=== PATIENT | female | born 1950 | race Two or more races ===

== ENCOUNTER 2020-05-21 14:00 | Outpatient (REF) | payer MEDICARE, SELFPAY ==
[2020-05-21 16:52] LABS: Alanine Aminotransferase 35 U/L (0-31); Anion Gap 12 (12-20); Aspartate Amino Transferase 43 U/L (5-31); Blood Urea Nitrogen 29 mg/dL (9-16); Carbon Dioxide 29 mmol/L (22-29); Chloride 100 mmol/L (96-108); Estimated Glomerular Filt Rate 58; Glucose Random 89 mg/dL (60-115); Potassium 3.8 mmol/l (3.3-5.1); Sodium 137 mmol/L (135-145)
[2020-05-21 16:54] LABS: B Type Natriuretic Peptide 55 pg/mL (<100)
== END 2020-05-21 14:01 | disposition home or self-care (01) ==
LOC: HO.LAB 14:00
PROVIDERS: PCP Internal Medicine; Referring Provider Internal Medicine; Visit Provider Nurse Practitioner Family
DX: G90.3 Multi-system degeneration of the autonomic nervous system (principal); I11.0 Hypertensive heart disease with heart failure; I50.30 Unspecified diastolic (congestive) heart failure; J18.9 Pneumonia, unspecified organism; G47.33 Obstructive sleep apnea (adult) (pediatric); Z99.89 Dependence on other enabling machines and devices
CPT/HCPCS: 80048; 83880; 84450; 84460; 99214

== ENCOUNTER → 2020-05-26 14:50 | Outpatient (BNVA) | payer MEDICARE, SELFPAY | PROVIDERS: PCP Internal Medicine; Visit Provider Hospitalist | DX: J18.9 Pneumonia, unspecified organism (principal); K90.0 Celiac disease; G47.33 Obstructive sleep apnea (adult) (pediatric); I27.20 Pulmonary hypertension, unspecified; Z79.899 Other long term (current) drug therapy; Z99.89 Dependence on other enabling machines and devices | CPT/HCPCS: 99205; 99212 ==

== ENCOUNTER 2020-06-02 13:22 | Outpatient (REF) | payer MEDICARE, SELFPAY ==
--- NOTE | 2020-06-02 | PFT_ITS ---
FLOWS: FEV1 73% of predicted at 1.69 L. FVC 63% of predicted at 1.92 L. FEV1 to FVC ratio of 0.88. No bronchodilator response. The patient has had a maximum of 18% decrease in her FEV1 with administration of methacholine. IMPRESSION: Negative methacholine challenge test. MD RONY Shah/IMELDA / [id number]
== END 2020-06-02 13:23 | disposition home or self-care (01) ==
LOC: HO.RESP 13:22
PROVIDERS: PCP Internal Medicine; Visit Provider Hospitalist
DX: R06.02 Shortness of breath (principal); R05 Cough; Z87.891 Personal history of nicotine dependence
CPT/HCPCS: 94060; 94727; 94729

== ENCOUNTER 2020-06-15 18:23 | Inpatient (IN) | payer MEDICARE, SELFPAY ==
[2020-06-15 18:30] VITALS: BP 133/54; PULSE 89; RESP 30; TEMP 36.6; O2SAT 88; BMI 30.9
--- NOTE | 2020-06-15 18:49 | PC.NURSE ---
Report taken from Collin. Pt satting @ 93% on RA, O2 applied via NC @ 2 lpm, sat increased to 98%.
--- NOTE | 2020-06-15 19:09 | ECG_ITS ---
Test Reason : SOB Blood Pressure : / mmHG Vent. Rate : 081 BPM Atrial Rate : 081 BPM P-R Int : 178 ms QRS Dur : 076 ms QT Int : 366 ms P-R-T Axes : 056 017 065 degrees QTc Int : 425 ms Normal sinus rhythm Normal ECG When compared with ECG of 23-FEB-2020 16:21, No significant change was found Referred By: Jessica Lucio Electronically Signed By:WANDA JOHSNON MD
--- NOTE | 2020-06-15 19:09 | ED.SOB ---
HPI - SOB/Dyspnea General Chief Complaint: Dyspnea Stated Complaint: shortness of breath Time Seen by Provider: 06/15/20 19:46 Source: patient Mode of arrival: ambulatory Limitations: no limitations History of Present Illness HPI Narrative: 69-year-old female with past medical history of uterine cancer, pulmonary hypertension, diastolic CHF, orthostatic hypotension dysautonomia syndrome, hypothyroidism, hypertension, hyperlipidemia, and celiac disease presents with worsening shortness of breath and hypoxia. She states that she has been short of breath since November, has been worked up by Dr. Ford and was diagnosed with pneumonitis a few months ago. She states that over the past week her respiration rates have increased, over the past 3 days she has noticed that she is having a difficult time walking and speaking in complete sentences, and today she noticed that on minimal exertion her oxygenation rate dropped down to 87%. 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 she does not report any fevers or chills, but states to have significant anxiety over her respiratory distress. She denies abdominal pain, abdominal distention, dysuria, hematuria, edema, dizziness, weakness, and abnormal bruising or bleeding. MD elicited complaint: shortness of breath, cough and anxiety Pertinent past history: congestive heart failure and pneumonia Onset (ago): day(s) ( Three days) Context: anxiety Timing: constant Severity: severe Exacerbating factors: exertion, movement, coughing and talking Relieving factors: nothing Known history of: congestive heart failure and other ( pneumonitis) Associated symptoms: cough, wheezing, orthopnea and palpitations Treatment prior to arrival: bronchodilator and diuretics Related Data Home oxygen amount: none Home Medications Medication Instructions Recorded Confirmed amlodipine 1 tab PO QAM 06/15/20 06/15/20 atorvastatin 1 tab PO DAILY 06/15/20 06/15/20 clopidogrel 1 tab PO DAILY 06/15/20 06/15/20 estradiol 1 tab PO DAILY 06/15/20 06/15/20 hiyelcbrhvv-wgmcpyerw-bbmiibem 1 puff PO DAILY 06/15/20 06/15/20 [Trelegy Ellipta] furosemide 40 mg PO BID PRN 06/15/20 06/15/20 gabapentin 1 tab PO QID 06/15/20 06/15/20 gabapentin 1 tab PO QID 06/15/20 06/15/20 hydralazine PO 06/15/20 labetalol 1 tab PO BID 06/15/20 06/15/20 levothyroxine 1 tab PO DAILY 06/15/20 06/15/20 lorazepam 1 tab PO QID PRN 06/15/20 06/15/20 sertraline 1.5 tab PO DAILY 06/15/20 06/15/20 spironolactone 0.5 tab PO DAILY 06/15/20 06/15/20 sumatriptan succinate 1 tab PO Q2H PRN 06/15/20 06/15/20 zolpidem 1 tab PO BEDTIME 06/15/20 06/15/20 Allergies Allergy/AdvReac Type Severity Reaction Status Date / Time gluten [GLUTEN] Allergy Unknown ABD PAIN Verified 05/26/20 20:54 Sulfa (Sulfonamide Allergy Unknown UNK, rash Verified 05/26/20 20:54 Antibiotics) [SULFA(SULFONAMIDE ANTIBIOTICS)] mirtazapine AdvReac Unknown peripheral Verified 05/26/20 20:54 edema Review of Systems Review of Systems: Constitutional: No Fever, No Chills ENT/Mouth: No Hoarseness, No sore throat, No Rhinorrhea Eyes: No Redness, No Discharge, No Vision Changes Cardiovascular: No Chest Pain, positive SOB, positive Dyspnea on Exertion, No Edema Respiratory: positive Cough, No Sputum, positive Wheezing, Gastrointestinal: No Nausea, No Vomiting, No Diarrhea, No abdominal Pain Genitourinary: No Dysuria, No Hematuria Musculoskeletal: No joint pain, No Myalgias Skin: No rash Neuro: No Weakness, No Numbness, No Headache Psych: No anxiety, depression Heme/Lymph: No Bruising, No Bleeding Endocrine: No Polyuria, No Polydipsia Yes all other systems are reviewed and are negative [facility] Past Medical History Attestation statement: The following information was validated with the patient. Medical History Celiac disease Diastolic CHF HTN (hypertension) Hyperlipemia Hypothyroid Mammogram normal Orthostatic hypotension dysautonomic syndrome DANIS on CPAP Surgical History Endometrial adenocarcinoma History of colonoscopy History of total abdominal hysterectomy and bilateral salpingo-oophorectomy Family History Family History Father Savita cell cancer HTN (hypertension) CVD (cardiovascular disease) Mother Crohn disease Cancer Maternal Grandfather No problems noted. Maternal Grandmother No problems noted. Paternal Grandfather CVD (cardiovascular disease) Paternal Grandmother COPD (chronic obstructive pulmonary disease) Brother No problems noted. Sister No problems noted. Daughter No problems noted. Social History Social History Smoking Status: Never smoker Advance Directives: No Advance Directives Information Provided: Yes Physical Exam Vital Signs: Vital Signs: Last Vital Signs Temp 99.3 F 06/15/20 20:33 Pulse 82 06/15/20 21:32 Resp 16 06/15/20 21:32 BP 119/56 L 06/15/20 21:32 Pulse Ox 97 06/15/20 21:32 Body Mass Index 30.9 Appearance: Alert. Oriented X3. moderate distress. Head: Normal external exam. Normocephalic. Atraumatic. Eyes: PERRLA. EOMI. Conjunctiva and sclera normal. Eyelids normal. ENT: TM's Normal. Pharynx normal. Uvula midline. Moist mucous membranes. No trismus noted. No drooling noted. No muffled voice noted. Neck: Normal inspection. Neck supple. No adenopathy. CVS: Normal heart rate and rhythm. Heart sound normal. No murmurs noted. Pulses equal to all extremities. Respiratory: moderate respiratory distress. tachypneic at 30 breaths per minute. Painless inspiration. Breath sounds wheezes noted. Chest nontender. No accessory muscle usage noted or decreased air movement noted. Abdomen: Soft and nontender. Bowel sounds normal in all 4 quadrants. No distention noted. No organomegaly noted. No visible injury noted. Back: No CVA tenderness. Full range of motion noted. Skin: Skin warm and dry. Normal skin color. Normal skin turgor. No rashes/lesions/lacerations noted. Extremities: No lower extremity edema. Extremities exhibit normal range of motion. Extremities nontender. Neuro: cranial nerves 2-12 intact, no focal neural deficits, strength 5/5 to all extremities, No motor deficit. No sensory deficit. Course Course Course Narrative: 69-year-old female with shortness breath followed by Dr. Ford for pneumonitis, and chronic shortness of breath since November. She was diagnosed with diastolic CHF several months ago. patient is very apprehensive about taking any medications, I reached out to Dr. Ford, the plan is for 125 mg of Solu-Medrol, no fluid resuscitation as she does have CHF, CTA of the chest to rule out PE, and labs. A review of her medical record shows a normal V/Q scan on 03/26/2020 and on 02/14/2020 had a CTA that indicated no pulmonary embolism with hazy ground-glass opacities in the perihilar lung bilaterally suggesting cardiogenic etiology of CHF. Patient dropped down to the mid 80s on minimal exertion, patient initiated on oxygen 2 L nasal cannula which bumped her up to 94% at rest. will rule ACS with EKG and troponins. She has a white count of 13.1, she does take inhaled steroids, ESR is 29 BUN 21, glucose 139, and BNP is 122. at this time we will not diurese as she has had 80 mg of Lasix today. CTA shows pneumonitis or viral pneumonia negative for PE. These results were discussed with Dr. Ford, hospitalist contacted for admission. Patient will be admitted for hypoxia, pneumonitis and CHF. Consultations Consultation #1: Dr. Jose L Ford Time: 19:40 Consultation #2: Dr. Saad Angel Time: 21:56 MDM - SOB/Dyspnea Differential Diagnosis Differential diagnosis: Likely congestive heart failure, pneumonia, pulmonary embolism, pleural effusion and anemia Medical Records Attestation: I reviewed the patient's medical records. Lab Data Attestation: I reviewed the patient's lab results. Result diagrams: 06/15/20 19:57 06/15/20 19:57 Labs: Lab Results 06/15/20 06/15/20 06/15/20 Range/Units 19:57 19:57 19:57 WBC 13.1 H (4.8-10.8) X10*3/uL RBC 4.55 (4.20-5.50) X10*6/uL Hgb 13.4 (12.0-16.0) g/dl Hct 40.5 (37-47) % MCV 89.0 (80-98) fL MCH 29.5 (27.0-33.0) pg MCHC 33.1 (31.0-35.0) g/dl RDW 14.3 (11.0-16.0) % Plt Count 301 (160-400) X10*3/uL MPV 10.5 (9.4-12.3) fL Immature Gran % (Auto) 0.3 (0.0-0.4) % Neut % (Auto) 79.4 H (45-73) % Lymph % (Auto) 9.5 L (20-40) % [place] % (Auto) 8.3 (2-11) % Eos % (Auto) 2.0 (0-4) % Baso % (Auto) 0.5 (0-2) % Lymph # (Auto) 1.2 (1.2-4.9) X10*3/uL [place] # (Auto) 1.1 (0.1-1.2) X10*3/uL Eos # (Auto) 0.3 (0.0-0.4) X10*3/uL Baso # (Auto) 0.1 (0.0-0.2) X10*3/uL Abs Immat Gran (auto) 0.04 H (0.00-0.03) X10*3/uL Absolute Neuts (auto) 10.4 H (2.0-8.3) X10*3/uL Absolute Nucleated RBC 0.000 (0.0-0.012) X10*3/uL Nucleated RBC % (auto) 0.0 (0.0-0.2) /100WBC ESR (0-20) MM/HR D-Dimer NG/ML ABG pH (7.35-7.45) ABG pCO2 (32-45) mmhg ABG pO2 (83-108) mmhg ABG HCO3 (22-26) mmol/l ABG O2 Saturation % ABG Base Excess Oxygen Given Sodium 138 (135-145) mmol/L Potassium 3.4 (3.3-5.1) mmol/l Chloride 100 (96-108) mmol/L Carbon Dioxide 26 (22-29) mmol/L Anion Gap 15 (12-20) BUN 21 H (9-16) mg/dL Creatinine 0.97 (0.5-1.4) mg/dL Estim Creat Clear Calc 57.4 Estimated GFR 57 Random Glucose 139 H D (60-115) mg/dL Lactic Acid (0.5-2.0) mmol/L Calcium 8.6 (8.4-10.2) mg/dL Troponin I High Sens 5.7 (<3.5-17.0) ng/L B-Natriuretic Peptide 122 H (<100) pg/mL Urine Color Urine Appearance Urine pH (5.0-8.0) Ur Specific [place] (1.005-1.025) Urine Protein (NEG-TRACE) MG/DL Urine Glucose (UA) (NEG) MG/DL Urine Ketones (NEG) MG/DL Urine Blood (NEG) Urine Nitrite (NEG) Ur Leukocyte Esterase (NEG) Coronavirus (PCR) (Negative) Influenza Type A (PCR) (Negative) Influenza Type B (PCR) (Negative) RSV RNA Qual (PCR) (Negative) 06/15/20 06/15/20 06/15/20 Range/Units 19:57 19:57 19:57 WBC (4.8-10.8) X10*3/uL RBC (4.20-5.50) X10*6/uL Hgb (12.0-16.0) g/dl Hct (37-47) % MCV (80-98) fL MCH (27.0-33.0) pg MCHC (31.0-35.0) g/dl RDW (11.0-16.0) % Plt Count (160-400) X10*3/uL MPV (9.4-12.3) fL Immature Gran % (Auto) (0.0-0.4) % Neut % (Auto) (45-73) % Lymph % (Auto) (20-40) % [place] % (Auto) (2-11) % Eos % (Auto) (0-4) % Baso % (Auto) (0-2) % Lymph # (Auto) (1.2-4.9) X10*3/uL [place] # (Auto) (0.1-1.2) X10*3/uL Eos # (Auto) (0.0-0.4) X10*3/uL Baso # (Auto) (0.0-0.2) X10*3/uL Abs Immat Gran (auto) (0.00-0.03) X10*3/uL Absolute Neuts (auto) (2.0-8.3) X10*3/uL Absolute Nucleated RBC (0.0-0.012) X10*3/uL Nucleated RBC % (auto) (0.0-0.2) /100WBC ESR (0-20) MM/HR D-Dimer NG/ML ABG pH (7.35-7.45) ABG pCO2 (32-45) mmhg ABG pO2 (83-108) mmhg ABG HCO3 (22-26) mmol/l ABG O2 Saturation % ABG Base Excess Oxygen Given Sodium (135-145) mmol/L Potassium (3.3-5.1) mmol/l Chloride (96-108) mmol/L Carbon Dioxide (22-29) mmol/L Anion Gap (12-20) BUN (9-16) mg/dL Creatinine (0.5-1.4) mg/dL Estim Creat Clear Calc Estimated GFR Random Glucose (60-115) mg/dL Lactic Acid 1.5 (0.5-2.0) mmol/L Calcium (8.4-10.2) mg/dL Troponin I High Sens (<3.5-17.0) ng/L B-Natriuretic Peptide (<100) pg/mL Urine Color YELLOW Urine Appearance CLEAR Urine pH 6.5 (5.0-8.0) Ur Specific [place] 1.010 (1.005-1.025) Urine Protein NEG (NEG-TRACE) MG/DL Urine Glucose (UA) NEG (NEG) MG/DL Urine Ketones NEG (NEG) MG/DL Urine Blood NEG (NEG) Urine Nitrite NEG (NEG) Ur Leukocyte Esterase NEG (NEG) Coronavirus (PCR) NEGATIVE (Negative) Influenza Type A (PCR) NEGATIVE (Negative) Influenza Type B (PCR) NEGATIVE (Negative) RSV RNA Qual (PCR) NEGATIVE (Negative) 06/15/20 06/15/20 06/15/20 Range/Units 19:57 19:57 22:30 WBC (4.8-10.8) X10*3/uL RBC (4.20-5.50) X10*6/uL Hgb (12.0-16.0) g/dl Hct (37-47) % MCV (80-98) fL MCH (27.0-33.0) pg MCHC (31.0-35.0) g/dl RDW (11.0-16.0) % Plt Count (160-400) X10*3/uL MPV (9.4-12.3) fL Immature Gran % (Auto) (0.0-0.4) % Neut % (Auto) (45-73) % Lymph % (Auto) (20-40) % [place] % (Auto) (2-11) % Eos % (Auto) (0-4) % Baso % (Auto) (0-2) % Lymph # (Auto) (1.2-4.9) X10*3/uL [place] # (Auto) (0.1-1.2) X10*3/uL Eos # (Auto) (0.0-0.4) X10*3/uL Baso # (Auto) (0.0-0.2) X10*3/uL Abs Immat Gran (auto) (0.00-0.03) X10*3/uL Absolute Neuts (auto) (2.0-8.3) X10*3/uL Absolute Nucleated RBC (0.0-0.012) X10*3/uL Nucleated RBC % (auto) (0.0-0.2) /100WBC ESR 29 H (0-20) MM/HR D-Dimer 287 NG/ML ABG pH 7.47 H (7.35-7.45) ABG pCO2 38 (32-45) mmhg ABG pO2 76 L (83-108) mmhg ABG HCO3 27 H (22-26) mmol/l ABG O2 Saturation 96.0 % ABG Base Excess 3.9 Oxygen Given 2 L Sodium (135-145) mmol/L Potassium (3.3-5.1) mmol/l Chloride (96-108) mmol/L Carbon Dioxide (22-29) mmol/L Anion Gap (12-20) BUN (9-16) mg/dL Creatinine (0.5-1.4) mg/dL Estim Creat Clear Calc Estimated GFR Random Glucose (60-115) mg/dL Lactic Acid (0.5-2.0) mmol/L Calcium (8.4-10.2) mg/dL Troponin I High Sens (<3.5-17.0) ng/L B-Natriuretic Peptide (<100) pg/mL Urine Color Urine Appearance Urine pH (5.0-8.0) Ur Specific [place] (1.005-1.025) Urine Protein (NEG-TRACE) MG/DL Urine Glucose (UA) (NEG) MG/DL Urine Ketones (NEG) MG/DL Urine Blood (NEG) Urine Nitrite (NEG) Ur Leukocyte Esterase (NEG) Coronavirus (PCR) (Negative) Influenza Type A (PCR) (Negative) Influenza Type B (PCR) (Negative) RSV RNA Qual (PCR) (Negative) ABG Data ABG results: pH 7.47 high pCO2 38 PO2 76 low HC03 27 high O2 saturation 96% ABG base excess 3.9 oxygen given 2 L Attestation: I personally reviewed and interpreted this ABG as follows: Interpretation: respiratory acidosis Imaging Data CTA chest: Attestation: I personally reviewed and interpreted this imaging study as follows: Radiologist's impression: EXAMINATION: CT ANGIOGRAM OF THE CHEST WITH AND WITHOUT CONTRAST (CT PULMONARY ANGIOGRAM FOR PE) CLINICAL INFORMATION: Reason for Exam sob COMPARISON: CTA chest dated 02/14/2020 TECHNIQUE: Prior to contrast administration, noncontrast localization images were obtained. Subsequently, multidetector volumetric imaging was performed from the thoracic inlet to below the diaphragms following the administration of 80 mLOmnipaque 350 intravenous contrast. No contrast reaction reported Sagittal, coronal, and MIP oblique sagittal reformatted images were obtained on the CT workstation, uploaded to PACS, and reviewed. This CT examination was performed using dose optimization techniques as appropriate, variously including the following: *Automated exposure control *Adjustment of mA and/or kV according to patient size (this includes techniques or standardized protocols for targeted exams where dose is matched to indication/reason for exam; i.e. extremities or head) *Use of iterative reconstruction technique Total exam dose-length product 362 mGy-cm FINDINGS: QUALITY OF STUDY/CONTRAST BOLUS: Satisfactory. PULMONARY ARTERIES: No central or segmental pulmonary emboli. THORACIC AORTA: No aneurysm or dissection. LUNG: There are patchy groundglass opacities within the upper lobes bilaterally, demonstrating a slight peripheral predominance.. PLEURA: No pleural effusion or pneumothorax. MEDIASTINUM: Normal heart size. No pericardial effusion. No hilar or mediastinal lymphadenopathy. No evidence of septal bowing or right heart strain. No reflux of contrast into the hepatic veins to suggest elevated right heart pressures. CHEST WALL/AXILLA: No axillary or internal mammary lymphadenopathy. OSSEOUS STRUCTURES: No acute or suspicious osseous abnormality. UPPER ABDOMEN: Unremarkable. CT/CT angio chest PE protocol IMPRESSION: * No evidence of pulmonary embolism. * No aortic dissection or aneurysm. * There are patchy groundglass opacification, predominantly upper lobe and peripheral and distribution. Appearance is nonspecific but could be compatible with an atypical pneumonitis such as a viral pneumonia. VTE: negative ECG Data Attestation: I personally reviewed and interpreted this ECG as follows: ECG interpretation date: 06/15/20 Prior ECG tracings: available for review Interpretation: Vent. Rate : 081 BPM Atrial Rate : 081 BPM P-R Int : 178 ms QRS Dur : 076 ms QT Int : 366 ms P-R-T Axes : 056 017 065 degrees QTc Int : 425 ms Normal sinus rhythm Cannot rule out Anterior infarct , age undetermined Abnormal ECG When compared with ECG of 23-FEB-2020 16:21, No significant change was found Critical Care Time Critical Care Time Critical Care Time: Yes Total Critical Care Time: 65 Attestation: I have personally provided critical care time exclusive of time spent on separately billable procedures. Time includes review of laboratory data, radiology results, discussion with consultants, and monitoring for potential decompensation. Interventions were performed as documented. Discharge Plan Discharge Clinical Impression: Pneumonitis, Pulmonary hypertension Diastolic CHF Qualifiers: Heart failure chronicity: acute on chronic Qualified Code(s): I50.33 - Acute on chronic diastolic (congestive) heart failure Patient Disposition: Admitted As Inpatient
--- NOTE | 2020-06-15 19:46 | CT_ITS ---
EXAMINATION: CT ANGIOGRAM OF THE CHEST WITH AND WITHOUT CONTRAST (CT PULMONARY ANGIOGRAM FOR PE) CLINICAL INFORMATION: Reason for Exam sob COMPARISON: CTA chest dated 02/14/2020 TECHNIQUE: Prior to contrast administration, noncontrast localization images were obtained. Subsequently, multidetector volumetric imaging was performed from the thoracic inlet to below the diaphragms following the administration of 80 mLOmnipaque 350 intravenous contrast. No contrast reaction reported Sagittal, coronal, and MIP oblique sagittal reformatted images were obtained on the CT workstation, uploaded to PACS, and reviewed. This CT examination was performed using dose optimization techniques as appropriate, variously including the following: *Automated exposure control *Adjustment of mA and/or kV according to patient size (this includes techniques or standardized protocols for targeted exams where dose is matched to indication/reason for exam; i.e. extremities or head) *Use of iterative reconstruction technique Total exam dose-length product 362 mGy-cm FINDINGS: QUALITY OF STUDY/CONTRAST BOLUS: Satisfactory. PULMONARY ARTERIES: No central or segmental pulmonary emboli. THORACIC AORTA: No aneurysm or dissection. LUNG: There are patchy groundglass opacities within the upper lobes bilaterally, demonstrating a slight peripheral predominance.. PLEURA: No pleural effusion or pneumothorax. MEDIASTINUM: Normal heart size. No pericardial effusion. No hilar or mediastinal lymphadenopathy. No evidence of septal bowing or right heart strain. No reflux of contrast into the hepatic veins to suggest elevated right heart pressures. CHEST WALL/AXILLA: No axillary or internal mammary lymphadenopathy. OSSEOUS STRUCTURES: No acute or suspicious osseous abnormality. UPPER ABDOMEN: Unremarkable. CT/CT angio chest PE protocol IMPRESSION: * No evidence of pulmonary embolism. * No aortic dissection or aneurysm. * There are patchy groundglass opacification, predominantly upper lobe and peripheral and distribution. Appearance is nonspecific but could be compatible with an atypical pneumonitis such as a viral pneumonia. VTE: negative
[2020-06-15 20:08] LABS: MANUAL DIFF FLAG NO
[2020-06-15 20:11] LABS: Basophils Absolute Auto 0.1 X10*3/uL (0.0-0.2); Basophils Percent Auto 0.5 % (0-2); Eosinophils Absolute Auto 0.3 X10*3/uL (0.0-0.4); Hematocrit 40.5 % (37-47); Hemoglobin 13.4 g/dl (12.0-16.0); Imm Gran Abs Auto 0.04 X10*3/uL (0.00-0.03); Imm Gran Pct Auto 0.3 % (0.0-0.4); Lymphocytes Absolute Auto 1.2 X10*3/uL (1.2-4.9); Lymphocytes Percent Auto 9.5 % (20-40); Mean Corpuscular HGB Conc 33.1 g/dl (31.0-35.0); Mean Corpuscular Hemoglobin 29.5 pg (27.0-33.0); Mean Platelet Volume 10.5 fL (9.4-12.3); Monocytes Absolute Auto 1.1 X10*3/uL (0.1-1.2); Monocytes Percent Auto 8.3 % (2-11); Neutrophils Absolute Auto 10.4 X10*3/uL (2.0-8.3); Neutrophils Percent Auto 79.4 % (45-73); Platelet Count 301 X10*3/uL (160-400); Red Blood Count 4.55 X10*6/uL (4.20-5.50); Red Cell Distribution Width 14.3 % (11.0-16.0); White Blood Count 13.1 X10*3/uL (4.8-10.8)
--- NOTE | 2020-06-15 20:11 | PC.NURSE ---
Pt found sitting upright in bed, speaking full sentences, CAOx4. Pt requesting to use the bathroom, ambulating to the bathroom with a barrera/steady gait. Upon return from the bathroom, O2 sat had decreased to 89%. O2 applied @ 2 lpm, sat increased to 96%. EKG obtained, NSR on the monitor. IV established, first set of BCX and all labs obtained and sent with UA and Covid swab. Pt resting in bed, awaiting medications at this time.
[2020-06-15 20:21] LABS: D Dimer 287 NG/ML
[2020-06-15] MEDS: methylPREDNISolone Sod Succ/PF 125 MG/2 ML VIAL IVPUSH (20:27)
[2020-06-15] MEDS: LORazepam 2 MG/ML VIAL 1 MG IVPUSH (20:27)
[2020-06-15 20:28] LABS: Glucose Urine UA NEG (NEG); Leukocyte Esterase Urine NEG (NEG); Nitrite Urine NEG (NEG); PH 6.5 (5.0-8.0); Urine Blood NEG (NEG); Urine Ketones NEG (NEG); Urine Protein NEG (NEG-TRACE)
[2020-06-15 20:29] LABS: Lactic Acid 1.5 mmol/L (0.5-2.0)
[2020-06-15 20:30] LABS: Appearance Urine CLEAR; Color Urine YELLOW
[2020-06-15 20:32] LABS: Anion Gap 15 (12-20); Blood Urea Nitrogen 21 mg/dL (9-16); Calcium 8.6 mg/dL (8.4-10.2); Carbon Dioxide 26 mmol/L (22-29); Chloride 100 mmol/L (96-108); Creatinine Clr Calc Pharmacy 57.4; Estimated Glomerular Filt Rate 57; Glucose Random 139 mg/dL (60-115); Potassium 3.4 mmol/l (3.3-5.1); Sodium 138 mmol/L (135-145)
[2020-06-15 20:33] VITALS: BP 100/55; PULSE 81; RESP 30; TEMP 37.4; O2SAT 95
[2020-06-15 20:38] LABS: B Type Natriuretic Peptide 122 pg/mL (<100); Troponin-I High Sensitivity 5.7 ng/L (<3.5-17.0)
[2020-06-15 20:51] LABS: Influenza A PCR NEGATIVE (Negative); Influenza B PCR NEGATIVE (Negative); Resp Syncy Virus RNA Qual PCR NEGATIVE (Negative); SARS COV2 PCR INHOUSE NEGATIVE (Negative)
--- NOTE | 2020-06-15 21:11 | PC.NURSE ---
2100 POC noted to be 278 mg/dl. Insulin infusion remains @ 5 units/hr.
--- NOTE | 2020-06-15 21:12 | PC.NURSE ---
Off to CT on hospital bed.
[2020-06-15] MEDS: iohexoL 350 MG/ML 100 ML INFUS..BTL IV (21:16)
[2020-06-15 21:20] LABS: Erythrocyte Sedimentation Rate 29 MM/HR (0-20)
[2020-06-15 21:32] VITALS: BP 119/56; PULSE 82; RESP 16; O2SAT 97
[2020-06-15 22:37] VITALS: O2SAT 95
[2020-06-15 22:39] LABS: Pt Ventilation O2% 2 L
[2020-06-15 22:40] LABS: ABG PCO2 38 mmhg (32-45); HCO3 ABG 27 mmol/l (22-26); PO2 ABG 76 mmhg (83-108); pH ABG 7.47 (7.35-7.45)
[2020-06-15 22:41] LABS: Base Excess ABG 3.9; Blood Gas Serial # 5414
--- NOTE | 2020-06-15 22:50 | PC.NURSE ---
RT at bedside for ABG.
--- NOTE | 2020-06-15 22:50 | PC.NURSE ---
Second set of BCX obtained by optical lens manufacturing tech.
[2020-06-16] VITALS (10 sets, daily range): BP systolic 127–162; BP diastolic 66–73; PULSE 70–94; RESP 18–22; TEMP 35.9–36.8; O2SAT 93–96; BMI 31.4
--- NOTE | 2020-06-16 00:25 | PC.NURSE ---
Pt ringing her call chavarria, requesting to use the bathroom. Pt ambulating to the bathroom with a barrera/steady gait. Upon return from the bathroom, O2 sat decreased to 87%. O2 applied, pts sat immediately increased to 93%. Pt awaiting room assignment at this time, requesting PO intake. Pt provided with GF snacks and water per request. Continue to monitor.
--- NOTE | 2020-06-16 00:26 | P.HPHOSP_ITS ---
History of Present Illness Date of Service: 06/16/20 Chief Complaint: SOB 69 y/o female with an extensive PMHx who presented from home due to SOB. Per history provided by the patient for quite some time patient has been having difficulty breathing which noticed has been more pronounced in the past several days for what decided to come to the ED for further evaluation. 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 Patient denies any symptoms such as fever, chest pain, nausea, vomiting, poor appetite or diarrhea. Denies any recent travel. On presentation WBC found to be 13, ESR of 29, CTA positive for bilateral groundglass opacities concerning for possible undelying viral infectious process. Covid and flu test done found to be negative. Patient continues to have hypoxia on room despite nebs and solumedrol per ED. Decision for admission given. Patient nathan and examined at the bedside, laying down in bed in no acute distress. ROS as above otherwise negative. Physical exam unremarkable. PMHX: HTN HLP CAD Hypothyroidism Celiac disease Syncope in the past Diastolic CHF Underlying Psychiatric disorder PSx: none Toxic habits: No documented hx of alcohol abuse, smoking or IVDA Review of Systems Cardiovascular: Cardiovascular: Reports dyspnea Respiratory: Respiratory: Reports dyspnea PMFSH Medical History Celiac disease Diastolic CHF HTN (hypertension) Hyperlipemia Hypothyroid Mammogram normal Orthostatic hypotension dysautonomic syndrome DANIS on CPAP Functional capacity: independent ambulation Family History Father Buckner cell cancer HTN (hypertension) CVD (cardiovascular disease) Mother Crohn disease Cancer Maternal Grandfather No problems noted. Maternal Grandmother No problems noted. Paternal Grandfather CVD (cardiovascular disease) Paternal Grandmother COPD (chronic obstructive pulmonary disease) Brother No problems noted. Sister No problems noted. Daughter No problems noted. Family history: reviewed and not pertinent Surgical History Endometrial adenocarcinoma History of colonoscopy History of total abdominal hysterectomy and bilateral salpingo-oophorectomy Social History Smoking Status: Never smoker Advance Directives: No Advance Directives Information Provided: Yes Meds Allergies Allergy/AdvReac Type Severity Reaction Status Date / Time gluten [GLUTEN] Allergy Unknown ABD PAIN Verified 05/26/20 20:54 Sulfa (Sulfonamide Allergy Unknown UNK, rash Verified 05/26/20 20:54 Antibiotics) [SULFA(SULFONAMIDE ANTIBIOTICS)] mirtazapine AdvReac Unknown peripheral Verified 05/26/20 20:54 edema Home Medications Medication Instructions Recorded Confirmed Type amlodipine 1 tab PO QAM 06/15/20 06/15/20 History atorvastatin 1 tab PO DAILY 06/15/20 06/15/20 History clopidogrel 1 tab PO DAILY 06/15/20 06/15/20 History estradiol 1 tab PO DAILY 06/15/20 06/15/20 History [id number]-[id number]-jlxiaacs 1 puff PO DAILY 06/15/20 06/15/20 History [Trelegy Ellipta] furosemide 40 mg PO BID PRN 06/15/20 06/15/20 History gabapentin 1 tab PO QID 06/15/20 06/15/20 History gabapentin 1 tab PO QID 06/15/20 06/15/20 History hydralazine PO 06/15/20 History labetalol 1 tab PO BID 06/15/20 06/15/20 History levothyroxine 1 tab PO DAILY 06/15/20 06/15/20 History lorazepam 1 tab PO QID PRN 06/15/20 06/15/20 History sertraline 1.5 tab PO DAILY 06/15/20 06/15/20 History spironolactone 0.5 tab PO DAILY 06/15/20 06/15/20 History sumatriptan succinate 1 tab PO Q2H PRN 06/15/20 06/15/20 History zolpidem 1 tab PO BEDTIME 06/15/20 06/15/20 History Physical Exam Vital Signs and Narrative: Vital Signs: Last Vital Signs Temp 99.3 F 06/15/20 20:33 Pulse 82 06/15/20 21:32 Resp 16 06/15/20 21:32 BP 119/56 L 06/15/20 21:32 Pulse Ox 97 06/15/20 21:32 Body Mass Index 30.9 Const: General: cooperative, comfortable and no acute distress Orientation/consciousness: oriented to person, oriented to place and oriented to time HENMT: Head: Yes normal to inspection Eyes: General: appearance normal, both eyes and all related structures Neck: Yes normal visual inspection Chest: Chest palpation & inspection: normal inspection of the chest Resp: Effort & Inspection: normal respiratory effort Cardio: Jugular venous distension: no JVD Rate: regular rate Rhythm: regular rhythm Heart sounds: S1 normal heart sound present and S2 normal heart sound present GI: Inspection: Yes normal to inspection Skin: General skin exam: no rashes or lesions noted Neuro: General: oriented to person, oriented to place and oriented to time Motor exam (neuro): 5/5 motor strength present throughout Extrem: General: Yes normal to inspection Results Labs CBC and Chem 7: 06/15/20 19:57 06/15/20 19:57 Labs: Laboratory Results - last 24 hr 06/15/20 06/15/20 06/15/20 19:57 19:57 19:57 MCV 89.0 MCH 29.5 MCHC 33.1 RDW 14.3 Plt Count 301 MPV 10.5 Immature Gran % (Auto) 0.3 Neut % (Auto) 79.4 H Lymph % (Auto) 9.5 L [place] % (Auto) 8.3 Eos % (Auto) 2.0 Baso % (Auto) 0.5 Lymph # (Auto) 1.2 [place] # (Auto) 1.1 Eos # (Auto) 0.3 Baso # (Auto) 0.1 Abs Immat Gran (auto) 0.04 H Absolute Neuts (auto) 10.4 H Absolute Nucleated RBC 0.000 Nucleated RBC % (auto) 0.0 ESR D-Dimer ABG pH ABG pCO2 ABG pO2 ABG HCO3 ABG O2 Saturation ABG Base Excess Oxygen Given Anion Gap 15 Estim Creat Clear Calc 57.4 Estimated GFR 57 Random Glucose 139 H D Lactic Acid Calcium 8.6 Troponin I High Sens 5.7 B-Natriuretic Peptide 122 H Urine Color Urine Appearance Urine pH Ur Specific Shaw Urine Protein Urine Glucose (UA) Urine Ketones Urine Blood Urine Nitrite Ur Leukocyte Esterase Coronavirus (PCR) Influenza Type A (PCR) Influenza Type B (PCR) RSV RNA Qual (PCR) 06/15/20 06/15/20 06/15/20 19:57 19:57 19:57 MCV MCH MCHC RDW Plt Count MPV Immature Gran % (Auto) Neut % (Auto) Lymph % (Auto) [place] % (Auto) Eos % (Auto) Baso % (Auto) Lymph # (Auto) [place] # (Auto) Eos # (Auto) Baso # (Auto) Abs Immat Gran (auto) Absolute Neuts (auto) Absolute Nucleated RBC Nucleated RBC % (auto) ESR D-Dimer ABG pH ABG pCO2 ABG pO2 ABG HCO3 ABG O2 Saturation ABG Base Excess Oxygen Given Anion Gap Estim Creat Clear Calc Estimated GFR Random Glucose Lactic Acid 1.5 Calcium Troponin I High Sens B-Natriuretic Peptide Urine Color YELLOW Urine Appearance CLEAR Urine pH 6.5 Ur Specific [place] 1.010 Urine Protein NEG Urine Glucose (UA) NEG Urine Ketones NEG Urine Blood NEG Urine Nitrite NEG Ur Leukocyte Esterase NEG Coronavirus (PCR) NEGATIVE Influenza Type A (PCR) NEGATIVE Influenza Type B (PCR) NEGATIVE RSV RNA Qual (PCR) NEGATIVE 06/15/20 06/15/20 06/15/20 19:57 19:57 22:30 MCV MCH MCHC RDW Plt Count MPV Immature Gran % (Auto) Neut % (Auto) Lymph % (Auto) [place] % (Auto) Eos % (Auto) Baso % (Auto) Lymph # (Auto) [place] # (Auto) Eos # (Auto) Baso # (Auto) Abs Immat Gran (auto) Absolute Neuts (auto) Absolute Nucleated RBC Nucleated RBC % (auto) ESR 29 H D-Dimer 287 ABG pH 7.47 H ABG pCO2 38 ABG pO2 76 L ABG HCO3 27 H ABG O2 Saturation 96.0 ABG Base Excess 3.9 Oxygen Given 2 L Anion Gap Estim Creat Clear Calc Estimated GFR Random Glucose Lactic Acid Calcium Troponin I High Sens B-Natriuretic Peptide Urine Color Urine Appearance Urine pH Ur Specific [place] Urine Protein Urine Glucose (UA) Urine Ketones Urine Blood Urine Nitrite Ur Leukocyte Esterase Coronavirus (PCR) Influenza Type A (PCR) Influenza Type B (PCR) RSV RNA Qual (PCR) Imaging Radiologist's Impressions: Impressions Chest CTA 06/15/20 19:46 IMPRESSION: * No evidence of pulmonary embolism. * No aortic dissection or aneurysm. * There are patchy groundglass opacification, predominantly upper lobe and peripheral and distribution. Appearance is nonspecific but could be compatible with an atypical pneumonitis such as a viral pneumonia. VTE: negative Assessment and Plan (1) Suspected COVID-19 virus infection: Status: Acute Covid and flu test negative but given significant findings on imaging will keep on isolation for now continue with oxygen therapy as of now continue with albuterol home dose continue with IV steroids and taper as tolerated infectious disease consult in the am (2) Hyperlipemia: Status: Acute continue with atorva home dose (3) HTN (hypertension): Status: Acute continue with amlodipine home dose continue with plavix home dose for underlying CAD (4) Diastolic CHF: Qualifiers: Heart failure chronicity: acute on chronic Qualified Code(s): I50.33 - Acute on chronic diastolic (congestive) heart failure Status: Acute continue with lasix home dose continue with spironolactone home dose (5) Hypothyroid: Status: Acute continue with levothyroxine home dose (6) Psychiatric disorder: Status: Acute continue with sertraline home dose (7) Peripheral neuropathy: Status: Acute continue with gabapentin home dose
--- NOTE | 2020-06-16 01:36 | PC.NURSE ---
[facility] unable to take report at this time.
--- NOTE | 2020-06-16 02:07 | PC.NURSE ---
Pt sleeping in bed at this time in NAD, awaiting admission.
--- NOTE | 2020-06-16 02:11 | PC.NURSE ---
ATTEMPTED TO GIVE REPORT AT THIS TIME, UNABLE TO TAKE REPORT WILL RECIEVE CALL BACK
--- NOTE | 2020-06-16 02:20 | PC.NURSE ---
Report given to [facility] RN.
[2020-06-16] MEDS: LORazepam 1 MG TABLET PO ×4 (03:54→21:48)
[2020-06-16] MEDS: Levothyroxine Sodium 75 MCG TABLET PO (06:01)
[2020-06-16] MEDS: Heparin Sodium,Porcine 5,000 UNIT/ML VIAL 5000 UNIT SUBCUT ×3 (06:01→21:49)
[2020-06-16 06:55] LABS: Basophils Percent Auto 0.1 % (0-2); Hemoglobin 13.1 g/dl (12.0-16.0); Imm Gran Abs Auto 0.06 X10*3/uL (0.00-0.03); Imm Gran Pct Auto 0.6 % (0.0-0.4); Lymphocytes Absolute Auto 0.7 X10*3/uL (1.2-4.9); Lymphocytes Percent Auto 7.2 % (20-40); MANUAL DIFF FLAG SCAN; Mean Corpuscular HGB Conc 32.8 g/dl (31.0-35.0); Mean Corpuscular Hemoglobin 29.2 pg (27.0-33.0); Mean Corpuscular Volume 89.1 fL (80-98); Monocytes Absolute Auto 0.1 X10*3/uL (0.1-1.2); Monocytes Percent Auto 1.5 % (2-11); Neutrophils Absolute Auto 8.6 X10*3/uL (2.0-8.3); Neutrophils Percent Auto 90.6 % (45-73); Platelet Count 302 X10*3/uL (160-400); Red Blood Count 4.49 X10*6/uL (4.20-5.50); SCAN SMEAR FLAG 1; White Blood Count 9.5 X10*3/uL (4.8-10.8)
[2020-06-16 07:37] LABS: Anion Gap 17 (12-20); Blood Urea Nitrogen 19 mg/dL (9-16); Calcium 8.7 mg/dL (8.4-10.2); Carbon Dioxide 22 mmol/L (22-29); Chloride 101 mmol/L (96-108); Creatinine Clr Calc Pharmacy 55.1; Estimated Glomerular Filt Rate 54; Glucose Random 275 mg/dL (60-115); Potassium 3.8 mmol/l (3.3-5.1); Sodium 136 mmol/L (135-145)
[2020-06-16] MEDS: 0.9 % Sodium Chloride Flush 3 ML SYRINGE IVFLUSH ×3 (07:48→23:33)
[2020-06-16 08:03] LABS: SLIDE REVIEW VERIFIED
[2020-06-16] MEDS: Sertraline HCL 100 MG TABLET 150 MG PO (08:52)
[2020-06-16] MEDS: Spironolactone 25 MG TABLET 12.5 MG PO (08:53)
[2020-06-16] MEDS: amLODIPine Besylate 10 MG TABLET PO (08:54)
[2020-06-16] MEDS: estradioL 0.5 MG TABLET 2 MG PO (08:55)
[2020-06-16] MEDS: Clopidogrel Bisulfate 75 MG TABLET PO (08:56)
[2020-06-16] MEDS: Labetalol HCL 100 MG TABLET PO ×2 (08:56→21:49)
[2020-06-16] MEDS: Gabapentin 600 MG TABLET PO ×4 (08:56→21:49)
[2020-06-16] MEDS: Atorvastatin Calcium 10 MG TABLET PO (08:56)
--- NOTE | 2020-06-16 09:03 | P.CDIC_ITS ---
[facility] Concurrent Query Service Date: 06/19/20 Documentation Clarification: Please clarify if you are treating a proba ble/suspected/likely or confirmed: Acute hypoxic respiratory failure, txt, resolved, rule out Please specify if known wrong patient Provider Response: Other Other Diagnosis: wrong provider PLEASE DO NOT DELETE/MODIFY EXISTING CONTENT Additional information is needed in order to code to the highest accuracy and appropriate Severity of Illness (SOI). Please clarify the information noted below in your progress notes and discharge summary. Risk Factors/Clinical Indicators/Treatments Moderate respiratory distress with shortness of breath, hypoxic, tachynpeic at 30 breaths per min. DANIS, Pneumonitis. pulse ox 88 (L) on room air with RR 30, placed on 2 liters oxygen pulse ox 97+. CDS: Kassy Gtz CCS, [facility] Contact Number: Ext: [phone] Please Review the information above and exercise your independent professional judgment in responding to the query. If you concur, pleas document in the PROGRESS NOTES and DISCHARGE SUMMARY. If you do not agree with the query, please document in the query above. THIS QUERY IS PART OF THE PERMANENT MEDICAL RECORD
[2020-06-16 09:34] LABS: Adenovirus PCR Not Detected (Not Detect.); Bordetella parapertussis PCR Not Detected (Not Detect.); Bordetella pertussis PCR Not Detected (Not Detect.); Chlamydia pneumoniae PCR Not Detected (Not Detect.); Coronavirus 229E PCR Not Detected (Not Detect.); Coronavirus HKU1 PCR Not Detected (Not Detect.); Coronavirus NL63 PCR Not Detected (Not Detect.); Coronavirus OC43 PCR Not Detected (Not Detect.); Human metapneumovirus PCR Not Detected (Not Detect.); Influenza A PCR Not Detected (Not Detect.); Influenza B PCR Not Detected (Not Detect.); Mycoplasma pneumoniae PCR Not Detected (Not Detect.); Parainfluenza 1 PCR Not Detected (Not Detect.); Parainfluenza 2 PCR Not Detected (Not Detect.); Parainfluenza 3 PCR Not Detected (Not Detect.); Parainfluenza 4 PCR Not Detected (Not Detect.); RSV PCR Not Detected (Not Detect.); Rhino/Enterovirus PCR Not Detected (Not Detect.); SARS-CoV-2 PCR Not Detected (Not Detect.)
--- NOTE | 2020-06-16 09:57 | P.EN_ITS ---
Event Note Date of Service: 06/16/20 Event Note: This patient is seen this morning for pulmonary eval and consultat ion, complete consultation note is dictated. Impression: Bilateral upper lobes alveolitis, secondary to nonspecific interstitial lung disease. COVID-19 test is negative. Influenza a and B tests negative. It could still be due to nonspecific viral pneumonitis. Oor possible hypersensitivity pneumonitis . Recc . In addition to O2 supplementation , to keep O2 sat above 90 % .I think she should be treated with a short course of steroids . With her h/o side effects to Predniosne in the past , a smaller dose of IV Solumedrol like 20 mg bID for afew days , may be tried . No need of any antibiotics at this rubén,e .
--- NOTE | 2020-06-16 10:11 | MHC.CM.PN ---
CM met with patient at the bedside who reports she is independent and lives with her . Patient reports she does have a HCP, Niels [phone], requested a copy. Discussed discharge plan, home no services. Niels will provide transportation.
--- NOTE | 2020-06-16 10:42 | CONS_ITS ---
DATE OF SERVICE: 06/16/2020 HISTORY OF PRESENT ILLNESS: Sana is a 69-year-old female, being followed by Dr. Jose L Ford in the [facility] and she is admitted through the emergency room because yesterday she started complaining of increased shortness of breath, noted that her O2 sats on room air were kind of low at home. She denies any recent fever, chills, or chest pain. The patient states that she has been intermittently sick since November of this year with acute viral-like symptoms. She has had COVID tested 4 times negative. Each time, she has been treated symptomatically. She does have chronic pulmonary disease and her previous CT scans have shown ground-glass abnormalities in the upper lobes. The patient is reluctant to take any oral steroids. She is complaining that the steroids cause some mental changes. She does not have oxygen at home. She has been tested with 6 minutes walk and did not qualify. She uses inhalers on a p.r.n. basis. Recently diagnosed to have obstructive sleep apnea and she is now using CPAP regularly. PAST MEDICAL HISTORY: 1. Includes hypertension, coronary artery disease, hypothyroidism, diastolic congestive heart failure, pulmonary hypertension has been considered, but echocardiogram did not show any significant pulmonary hypertension. It may have been because of untreated sleep apnea, which is now being treated. 2. Hypothyroidism. 3. Celiac disease and she follows gluten free diet. REVIEW OF SYSTEMS: Negative except for what is dictated in the history and physical, and mainly includes dyspnea on exertion with intermittent increase in her shortness of breath. MEDICATIONS: At home, her medications are as follows; amlodipine, atorvastatin, clopidogrel, Estradiol, Trelegy Ellipta once a day. Furosemide, gabapentin, hydralazine, labetalol, levothyroxine, lorazepam, sertraline, spironolactone, zolpidem. SOCIAL HISTORY: The patient is nonsmoker, nondrinker. PHYSICAL EXAMINATION: GENERAL: This 69-year-old female is moderately obese. She is on oxygen 2 L/minute. She is afebrile and does not seem to be in acute respiratory distress at this time. EAR, NOSE, THROAT: Examination not remarkable. NECK: Trachea in midline. No jugular venous distention. No lymphadenopathy. CHEST: Percussion note resonant. Breath sounds are slightly distant. A few fine inspiratory crepitations are heard over the upper lobes on both side. No wheezes are heard. CARDIAC: Sounds are normal. No murmurs. ABDOMEN: Soft and nontender. No palpable mass. EXTREMITIES: No clubbing or varicosities. No pitting edema noted at this time. LABORATORY DATA: White cell count 13.1 on admission and today is 9.5, hemoglobin 13.1, eosinophil count is 0. Serology: COVID test on 12/26 negative; on 02/22, negative; on 06/15, negative. Influenza A and B are also negative. SARS-CoV-2 RNA PCR test is pending. SARS-CoV-2 IgG test is negative. IMAGING: CT scan of the chest with contrast shows ground-glass opacities mainly in the upper lobes and predominantly in the peripheral area. The lower lobes are relatively spared. No solid mass and no nodules are noted. Arterial blood gases; pH 7.47, pCO2 of 38, and pO2 of 76. CLINICAL IMPRESSION: 1. Acute on chronic interstitial lung disease, predominantly in the upper lobes, secondary to nonspecific viral disease or secondary to hypersensitivity pneumonitis. 2. Hypoxemia secondary to above. 3. History of obstructive sleep apnea, being treated with CPAP. 4. Multiple comorbidities as described above. RECOMMENDATIONS: At this point, I would recommend that we treat her with IV Solu-Medrol small dose cautiously like 20 mg IV q.12 hours at least for a few days, followed by a short course of low-dose oral steroids and if it is hypersensitivity pneumonitis, it may improve significantly and continue oxygen supplementation as needed to keep O2 saturation above 90%. The patient should continue to use her CPAP at night. No need of any antibiotics at this time. Once the patient is stable, she can be followed as outpatient. If her opacities in the lungs do persist, she would need a bronchoscopic examination with bronchial lavage and study of the bronchial lavage. Thank you very much for asking me to see this patient. I will be glad to follow her along. MD DAVID Vasquez/IMELDA / [phone]
--- NOTE | 2020-06-16 13:26 | HO.PM.IMPN ---
Subjective Subjective Date of Service: 06/16/20 Interval History: pneumonitis vs chf Review of Systems Shortness of breath seems slowly improving, denies any chest pain or abdominal pain Still has cough Physical Exam Vital Signs: Vital Signs: Last Vital Signs Temp 97.4 F 06/16/20 12:00 Pulse 94 06/16/20 12:00 Resp 20 06/16/20 12:00 BP 154/73 H 06/16/20 12:00 Pulse Ox 95 06/16/20 12:00 Body Mass Index 31.4 Physical exam: Cvs: rrr, [id number] , no murmur res: few scatter rhonchii in upper lung area , no wheezin abd: no rebound or guarding ,nt, bs present. ext pulses present , no cyanosis neuro: axo3 , nonfocal. Objective Data Current Medications Generic Name Dose Route Start Last Admin Trade Name Freq PRN Reason Stop Dose Admin Albuterol Sulfate 1.25 mg 06/16/20 00:47 Albuterol Sulfate (0.042%) 1.25 Mg/3 Ml Vial.Neb INHALE RQ4H PRN shortness of breath Amlodipine Besylate 10 mg 06/16/20 09:00 06/16/20 08:54 Amlodipine Besylate 10 Mg Tablet PO 10 mg DAILY JESUS Administration Protocol Atorvastatin Calcium 10 mg 06/16/20 09:00 06/16/20 08:56 Atorvastatin Calcium 10 Mg Tablet PO 10 mg DAILY JESUS Administration Clopidogrel Bisulfate 75 mg 06/16/20 09:00 06/16/20 08:56 Clopidogrel Bisulfate 75 Mg Tablet PO 75 mg DAILY JESUS Administration Estradiol 2 mg 06/16/20 09:00 06/16/20 08:55 Estradiol 0.5 Mg Tablet PO 2 mg DAILY JESUS Administration Furosemide 40 mg 06/16/20 00:19 Furosemide 40 Mg Tablet PO BID PRN Weight Gain Protocol Gabapentin 600 mg 06/16/20 09:00 06/16/20 12:54 Gabapentin 600 Mg Tablet PO 600 mg QID JESUS Administration Heparin Sodium (Porcine) 5,000 unit 06/16/20 06:00 06/16/20 12:54 Heparin Sodium,Porcine 5,000 Unit/Ml Vial SUBCUT 5,000 unit Q8H JESUS Administration Labetalol HCl 100 mg 06/16/20 09:00 06/16/20 08:56 Labetalol Hcl 100 Mg Tablet PO 100 mg BID JESUS Administration Protocol Levothyroxine Sodium 75 mcg 06/16/20 06:00 06/16/20 06:01 Levothyroxine Sodium 75 Mcg Tablet PO 75 mcg DAILY@0600 [facility] Administration Lorazepam 1 mg 06/16/20 03:25 06/16/20 09:03 Lorazepam 1 Mg Tablet PO 1 mg QID PRN Administration anxiety Methylprednisolone Sodium Succinate 40 mg 06/16/20 06:45 06/16/20 07:18 Methylprednisolone Sod Succ/Pf 40 Mg/Ml Vial IV 40 mg DAILY@0600 [facility] Administration Non-Formulary Medication 1 puff 06/16/20 09:00 [id number] [Trelegy Ellipta] PO DAILY [facility] Pharmacy Consult 1 each 06/15/20 20:03 Consult Rx Perform Med Rec MISCELLANE ONCE PRN Consult order Sertraline HCl 150 mg 06/16/20 09:00 06/16/20 08:52 Sertraline Hcl 100 Mg Tablet PO 150 mg DAILY [facility] Administration Sodium Chloride 3 ml 06/16/20 08:00 06/16/20 07:48 0.9 % Sodium Chloride Flush 3 Ml Syringe IVFLUSH 3 ml QSHIFT [facility] Administration Spironolactone 12.5 mg 06/16/20 09:00 06/16/20 08:53 Spironolactone 25 Mg Tablet PO 12.5 mg DAILY [facility] Administration Protocol Sumatriptan Succinate 100 mg 06/16/20 00:19 Sumatriptan Succinate 100 Mg Tablet PO Q2H PRN migraine Zolpidem Tartrate 5 mg 06/16/20 21:00 Zolpidem Tartrate 5 Mg Tablet PO BEDTIME [facility] Labs CBC & Chem 7: 06/16/20 05:37 06/16/20 05:37 Assessment and Plan (1) Pneumonitis: Status: Acute (2) Suspected COVID-19 virus infection: Status: Acute Assessment and Plan: Respiratory failure hypoxemic secondary to probable pneumonitis versus CHF? distolic mild excerebation: Covid and flu test negative , continue oxygen, albuterol, steroids Pulmonary and Infectious Disease evaluation pending. HTN: Continue labetalol and amlodipine. Cad: Continue atorvastatin, Plavix, labetalol. Hypothyroidism: Continue levothyroxine. (3) Hyperlipemia: Status: Acute Assessment and Plan: continue with atorva home dose (4) HTN (hypertension): Status: Acute Assessment and Plan: continue with amlodipine home dose continue with plavix home dose for underlying CAD (5) Diastolic CHF: Status: Acute Assessment and Plan: continue with lasix home dose continue with spironolactone home dose (6) Hypothyroid: Status: Acute Assessment and Plan: continue with levothyroxine home dose (7) Psychiatric disorder: Status: Acute Assessment and Plan: continue with sertraline home dose (8) Peripheral neuropathy: Status: Acute Assessment and Plan: continue with gabapentin home dose
--- NOTE | 2020-06-16 16:40 | W.PM.IDCN ---
History of Present Illness Data of Consult Service Date: 06/16/20 Requesting physician: Joseph Pacheco Primary Care Provider: Celestina Zimmerman MD HPI Reason for consult: shortness of breath I read her record She has had shortness of breath over last 4-6 months She has had multiple COVID tests here and at [facility] and I dont see one positive Patient denies as well Her was transportation program director and she was exposed to his clothing in past She didnt smoke Review of Systems Review of Systems: Yes all other systems are reviewed and are negative Cardiovascular: Cardiovascular: Reports dyspnea on exertion Respiratory: Respiratory: Reports dyspnea on exertion [facility] Past Medical History Medical History Celiac disease Diastolic CHF HTN (hypertension) Hyperlipemia Hypothyroid Mammogram normal Orthostatic hypotension dysautonomic syndrome DANIS on CPAP Functional capacity: independent ambulation Family History Family History Father Savita cell cancer HTN (hypertension) CVD (cardiovascular disease) Mother Crohn disease Cancer Maternal Grandfather No problems noted. Maternal Grandmother No problems noted. Paternal Grandfather CVD (cardiovascular disease) Paternal Grandmother COPD (chronic obstructive pulmonary disease) Brother No problems noted. Sister No problems noted. Daughter No problems noted. Family history: reviewed and not pertinent Surgical History Surgical History Endometrial adenocarcinoma History of colonoscopy History of total abdominal hysterectomy and bilateral salpingo-oophorectomy Social History Social History Household Members: Significant Other Do you presently have visiting nurse or other home services: No Smoking Status: Unknown if ever smoked Smoked in Last 30 Days: No Use of substances other than those prescribed or required for medical reasons: No Currently Displaying Signs/Symptoms of Drug Intoxication Withdrawal: No Have you been hit, kicked, punched, or otherwise hurt by someone within the past year? If so, by whom?: No Do you feel safe in your current relationship?: Yes Is there a partner from a previous relationship who is making you feel unsafe now?: No Are you made to feel afraid or neglected: No Advance Directives: No Advance Directives Information Provided: Yes Do you have thoughts of harming others: None Do you have a plan to hurt others: No Plan Recently lost weight without trying: Unsure service: No Current occupational status: retired Meds Allergies Allergy/AdvReac Type Severity Reaction Status Date / Time gluten [GLUTEN] Allergy Unknown ABD PAIN Verified 05/26/20 20:54 Sulfa (Sulfonamide Allergy Unknown UNK, rash Verified 05/26/20 20:54 Antibiotics) [SULFA(SULFONAMIDE ANTIBIOTICS)] mirtazapine AdvReac Unknown peripheral Verified 05/26/20 20:54 edema Home Medications Medication Instructions Recorded Confirmed Type atorvastatin 1 tab PO DAILY 06/15/20 06/15/20 History clopidogrel 1 tab PO DAILY 06/15/20 06/15/20 History estradiol 1 tab PO DAILY 06/15/20 06/15/20 History bsxnymwsgia-vwkwjzhof-[id number] 1 puff PO DAILY 06/15/20 06/15/20 History [Trelegy Ellipta] furosemide 40 mg PO BID PRN 06/15/20 06/15/20 History gabapentin 1 tab PO QID 06/15/20 06/15/20 History gabapentin 1 tab PO QID 06/15/20 06/15/20 History hydralazine 75 mg PO DAILY@1700 06/15/20 06/16/20 History labetalol 1 tab PO BID 06/15/20 06/15/20 History levothyroxine 1 tab PO DAILY 06/15/20 06/15/20 History lorazepam 1 tab PO QID PRN 06/15/20 06/15/20 History sertraline 1.5 tab PO DAILY 06/15/20 06/15/20 History spironolactone 0.5 tab PO DAILY 06/15/20 06/15/20 History sumatriptan succinate 1 tab PO Q2H PRN 06/15/20 06/15/20 History zolpidem 1 tab PO BEDTIME 06/15/20 06/15/20 History hydralazine 25 mg PO DAILY 06/16/20 06/16/20 History Physical Exam Vital Signs: Vital Signs: Last Vital Signs Temp 98.0 F 06/16/20 15:44 Pulse 92 06/16/20 15:44 Resp 20 06/16/20 15:44 BP 144/70 H 06/16/20 15:44 Pulse Ox 95 06/16/20 15:44 Body Mass Index 31.4 Const: General: cooperative Orientation/consciousness: oriented to person, oriented to place and oriented to time HENMT: Ears: hearing grossly normal bilaterally Teeth and gingiva: dentition normal Resp: Effort & Inspection: normal respiratory effort Cardio: Rate: regular rate Rhythm: regular rhythm GI: Inspection: Yes normal to inspection Skin: General skin exam: no rashes or lesions noted Neuro: General: oriented to person, oriented to place and oriented to time Assessment and Plan (1) Pneumonitis: Problem details: She has longstanding pneumonitis with no COVID positivity seen Possible chemical pneumonitis,possible CVD,doubt TB No risk psittacosis seen? DIP related to malignancy Status: Acute Hold antibiotics Biopsy lung when able check for above Results Labs CBC & Chem 7: 06/16/20 05:37 06/16/20 05:37 Labs: Short CBC 06/15/20 06/16/20 Range/Units 19:57 05:37 WBC 13.1 H 9.5 (4.8-10.8) X10*3/uL Hgb 13.4 13.1 (12.0-16.0) g/dl Hct 40.5 40.0 (37-47) % Plt Count 301 302 (160-400) X10*3/uL BMP 06/15/20 06/16/20 19:57 05:37 Sodium 138 136 Potassium 3.4 3.8 Chloride 100 101 Carbon Dioxide 26 22 BUN 21 H 19 H Creatinine 0.97 1.02 Calcium 8.6 8.7 Urine 06/15/20 Range/Units 19:57 Urine Color YELLOW Urine Appearance CLEAR Urine pH 6.5 (5.0-8.0) Ur Specific [place] 1.010 (1.005-1.025) Urine Protein NEG (NEG-TRACE) MG/DL Urine Glucose (UA) NEG (NEG) MG/DL
[2020-06-16] MEDS: Furosemide 40 MG TABLET PO (17:26)
[2020-06-16] MEDS: hydrALAZINE HCl 25 MG TABLET 75 MG PO (19:03)
[2020-06-16] MEDS: Docusate Sodium 100 MG CAPSULE 200 MG PO (21:49)
[2020-06-16] MEDS: Zolpidem Tartrate 5 MG TABLET PO (22:23)
[2020-06-17] VITALS (7 sets, daily range): BP systolic 120–141; BP diastolic 60–71; PULSE 60–83; RESP 18–20; TEMP 36.2–36.6; O2SAT 93–96
[2020-06-17] MEDS: Levothyroxine Sodium 75 MCG TABLET PO (06:04)
[2020-06-17] MEDS: Heparin Sodium,Porcine 5,000 UNIT/ML VIAL 5000 UNIT SUBCUT ×3 (06:09→22:08)
[2020-06-17] MEDS: LORazepam 1 MG TABLET PO ×3 (06:11→22:20)
[2020-06-17] MEDS: Acetaminophen 325 MG TABLET 650 MG PO (06:47)
[2020-06-17] MEDS: Atorvastatin Calcium 10 MG TABLET PO (07:56)
[2020-06-17] MEDS: Labetalol HCL 100 MG TABLET PO ×2 (07:56→22:05)
[2020-06-17] MEDS: Spironolactone 25 MG TABLET 12.5 MG PO (07:56)
[2020-06-17] MEDS: hydrALAZINE HCl 25 MG TABLET PO (07:56)
[2020-06-17] MEDS: Clopidogrel Bisulfate 75 MG TABLET PO (07:56)
[2020-06-17] MEDS: Furosemide 40 MG TABLET PO ×2 (07:56→17:07)
[2020-06-17] MEDS: amLODIPine Besylate 10 MG TABLET PO (07:57)
[2020-06-17] MEDS: Gabapentin 600 MG TABLET PO ×4 (07:57→22:06)
[2020-06-17] MEDS: estradioL 0.5 MG TABLET 2 MG PO (07:57)
[2020-06-17] MEDS: Sertraline HCL 100 MG TABLET 150 MG PO (07:57)
[2020-06-17] MEDS: 0.9 % Sodium Chloride Flush 3 ML SYRINGE IVFLUSH ×3 (07:58→22:07)
--- NOTE | 2020-06-17 09:25 | PM.PNPUL ---
Subjective Subjective Principal diagnosis: Interstitial pneumonitis Interval history: she is feeling better than yesterday, denies any respiratory distress, has been afebrile, still has mild cough. still using oxygen 2 L/minute, but it could be weaned off. she was given Solu-Medrol 40 mg IV 1 time yesterday, which she tolerated without any on 2 word side-effects. I explained to her about the diagnosis which is most likely nonspecific interstitial pneumonitis. at this point it will be worth trying a course of steroids, before we do any further workup. she understands well and agrees to this plan. Objective Data Labs CBC & Chem 7: 06/16/20 05:37 06/16/20 05:37 Labs: Laboratory Results - last 24 hr 06/16/20 08:51 Respiratory Panel [place] See Note Adenovirus (Rapid PCR) Not Detected B.pert (TEM-PCR) Not Detected B.parapertussis DNA PCR Not Detected C. pneumoniae DNA (PCR) Not Detected Coronavirus OC43 (PCR) Not Detected Coronavirus HKU1 (PCR) Not Detected Coronavirus 229E (PCR) Not Detected Coronavirus NL63 (PCR) Not Detected Human Metapneumovir PCR Not Detected Influenza A (RT-PCR) Not Detected Influenza B (RT-PCR) Not Detected M. pneumoniae (PCR) Not Detected Parainfluenza 1 (PCR) Not Detected Parainfluenza 2 (PCR) Not Detected Parainfluenza 3 (PCR) Not Detected Parainfluenza 4 (PCR) Not Detected RSV (PCR) Not Detected Entero/Rhino (PCR) Not Detected SARS-CoV-2 RNA (RT-PCR) Not Detected Microbiology Microbiology Results: Microbiology 06/15/20 22:27 Blood - Venous Blood Culture - Preliminary No growth after 24 hours. 06/15/20 19:57 Blood - Venous Blood Culture - Preliminary No growth after 24 hours. Review of Systems Review of Systems Yes all other systems are reviewed and are negative Cardiovascular: Reports dyspnea Respiratory: Reports cough and Reports dyspnea Physical Exam Vital Signs: Vital Signs: Last Vital Signs Temp 97.8 F 06/17/20 07:34 Pulse 60 06/17/20 07:34 Resp 18 06/17/20 07:34 BP 128/64 06/17/20 07:34 Pulse Ox 96 06/17/20 07:34 Body Mass Index 31.4 Const: Other: The patient looks fairly comfortable today, she has no respiratory distress, remains afebrile. still on O2 2 L/minute, O2 sat 96% General: cooperative, no acute distress and alert Orientation/consciousness: patient oriented x3 HENMT: Head: Yes normal to inspection Ears: hearing grossly normal bilaterally General nose exam: Normal external nose present and Normal nares present Mouth: Normal oral and palatal mucosa present Throat: Yes posterior oropharynx normal Eyes: General: appearance normal, both eyes and all related structures Neck: Neck: Yes normal visual inspection, Yes no lymphadenopathy, Yes trachea midline and Yes no JVD Chest: Chest palpation & inspection: normal inspection of the chest and normal palpation of entire chest wall Resp: Effort & Inspection: normal respiratory effort and no respiratory distress Auscultation: clear to auscultation bilaterally, no rales, no rhonchi and no wheezes Cardio: Jugular venous distension: no JVD Rhythm: regular rhythm Heart sounds: S1 normal heart sound present, S2 normal heart sound present, no gallops and no murmurs GI: Inspection: Yes normal to inspection Palpation (GI): nontender and No hepatosplenomegaly present Back/Spine/Pelvis: Thoracic/Lumbar Spine: thoracic and lumbar spine normal to inspection Skin: General skin exam: no rashes or lesions noted Neuro: General: patient oriented x3 and no focal motor deficits Cranial nerves: Yes CN's II-XII intact bilaterally Extrem: General: No clubbing, No edema and No venous stasis dermatitis Psych: Appearance: grossly normal Procedures Abscess I/D Date of Service: 06/17/20 Assessment and Plan Time Spent With Patient Time: Total time spent is greater than 50% in coordination of care (as documented) at patient's floor/unit and/or counseling patient: Time with patient: 15 - 24 minutes
[2020-06-17] MEDS: SUMAtriptan succinate 100 MG TABLET PO ×2 (10:39→17:51)
[2020-06-17 12:47] LABS: Myeloperoxidase Antibody <1.0 AI; Proteinase 3 PR3 Antibodies <1.0 AI
[2020-06-17] MEDS: hydrALAZINE HCl 25 MG TABLET 75 MG PO (17:07)
[2020-06-17] MEDS: guaiFENesin 100 MG/5 ML LIQUID PO ×2 (17:51→22:58)
--- NOTE | 2020-06-17 18:38 | HO.PM.IMPN ---
Subjective Subjective Date of Service: 06/18/20 Interval History: Interstitial in pneumonitis question Review of Systems Still still has shortness of breath and cough denies any chest pain or abd pain Genitourinary No urinary Physical Exam Vital Signs: Vital Signs: Last Vital Signs Temp 97.5 F 06/17/20 15:27 Pulse 78 06/17/20 17:07 Resp 18 06/17/20 15:27 BP 120/60 06/17/20 17:07 Pulse Ox 94 06/17/20 15:27 Body Mass Index 31.4 Physical exam: Cvs: rrr, [id number] , no murmur res: fair air entry , slightly diminshed at bases. abd: no rebound or guarding ,nt, bs present. ext pulses present , no cyanosis neuro: axo3 , nonfocal. Objective Data Current Medications Generic Name Dose Route Start Last Admin Trade Name Freq PRN Reason Stop Dose Admin Albuterol Sulfate 1.25 mg 06/16/20 00:47 Albuterol Sulfate (0.042%) 1.25 Mg/3 Ml Vial.Neb INHALE RQ4H PRN shortness of breath Amlodipine Besylate 10 mg 06/16/20 09:00 06/17/20 07:57 Amlodipine Besylate 10 Mg Tablet PO 10 mg DAILY JESUS Administration Protocol Atorvastatin Calcium 10 mg 06/16/20 09:00 06/17/20 07:56 Atorvastatin Calcium 10 Mg Tablet PO 10 mg DAILY JESUS Administration Clopidogrel Bisulfate 75 mg 06/16/20 09:00 06/17/20 07:56 Clopidogrel Bisulfate 75 Mg Tablet PO 75 mg DAILY JESUS Administration Docusate Sodium 200 mg 06/16/20 21:00 06/16/20 21:49 Docusate Sodium 100 Mg Capsule PO 200 mg BEDTIME JESUS Administration Estradiol 2 mg 06/16/20 09:00 06/17/20 07:57 Estradiol 0.5 Mg Tablet PO 2 mg DAILY JESUS Administration Furosemide 40 mg 06/16/20 18:00 06/17/20 17:07 Furosemide 40 Mg Tablet PO 40 mg BID@0900,1800 JESUS Administration Protocol Gabapentin 600 mg 06/16/20 09:00 06/17/20 17:07 Gabapentin 600 Mg Tablet PO 600 mg QID JESUS Administration Guaifenesin 5 ml 06/17/20 18:00 06/17/20 17:51 Guaifenesin 100 Mg/5 Ml Liquid PO 5 ml Q6H JESUS Administration Heparin Sodium (Porcine) 5,000 unit 06/16/20 06:00 06/17/20 14:33 Heparin Sodium,Porcine 5,000 Unit/Ml Vial SUBCUT 5,000 unit Q8H JESUS Administration Hydralazine HCl 75 mg 06/17/20 17:00 06/17/20 17:07 Hydralazine Hcl 25 Mg Tablet PO 75 mg DAILY@1700 [facility] Administration Protocol Hydralazine HCl 25 mg 06/17/20 09:00 06/17/20 07:56 Hydralazine Hcl 25 Mg Tablet PO 25 mg DAILY JESUS Administration Protocol Labetalol HCl 100 mg 06/16/20 09:00 06/17/20 07:56 Labetalol Hcl 100 Mg Tablet PO 100 mg BID JESUS Administration Protocol Levothyroxine Sodium 75 mcg 06/16/20 06:00 06/17/20 06:04 Levothyroxine Sodium 75 Mcg Tablet PO 75 mcg DAILY@0600 [facility] Administration Lorazepam 1 mg 06/16/20 03:25 06/17/20 14:40 Lorazepam 1 Mg Tablet PO 1 mg QID PRN Administration anxiety Methylprednisolone Sodium Succinate 40 mg 06/17/20 21:00 Methylprednisolone Sod Succ/Pf 40 Mg/Ml Vial IVPUSH BID [facility] Non-Formulary Medication 1 puff 06/16/20 09:00 Bioeokueekq-Iwajdtnun-Skwvbkhz [Trelegy Ellipta] PO DAILY [facility] Omeprazole 20 mg 06/18/20 06:30 Omeprazole 20 Mg Capsule. PO DAILY@0630 [facility] Pharmacy Consult 1 each 06/15/20 20:03 Consult Rx Perform Med Rec MISCELLANE ONCE PRN Consult order Sertraline HCl 150 mg 06/16/20 09:00 06/17/20 07:57 Sertraline Hcl 100 Mg Tablet PO 150 mg DAILY [facility] Administration Sodium Chloride 3 ml 06/16/20 08:00 06/17/20 17:08 0.9 % Sodium Chloride Flush 3 Ml Syringe IVFLUSH 3 ml QSHIFT [facility] Administration Spironolactone 12.5 mg 06/16/20 09:00 06/17/20 07:56 Spironolactone 25 Mg Tablet PO 12.5 mg DAILY [facility] Administration Protocol Sumatriptan Succinate 100 mg 06/16/20 00:19 06/17/20 17:51 Sumatriptan Succinate 100 Mg Tablet PO 100 mg Q2H PRN Administration migraine Zolpidem Tartrate 5 mg 06/16/20 21:00 06/16/20 22:23 Zolpidem Tartrate 5 Mg Tablet PO 5 mg BEDTIME JESUS Administration Labs CBC & Chem 7: 06/16/20 05:37 06/16/20 05:37 Microbiology Microbiology Results: Microbiology 06/15/20 22:27 Blood - Venous Blood Culture - Preliminary No growth after 24 hours. 06/15/20 19:57 Blood - Venous Blood Culture - Preliminary No growth after 24 hours. Assessment and Plan (1) Pneumonitis: Problem details: She has longstanding pneumonitis with no COVID positivity seen Possible Hypersensitivity , or viral pneumonitis, Status: Acute (2) Diastolic dysfunction: Status: Acute Assessment and Plan: Pneumonitis: Initial question was Respiratory failure hypoxemic secondary to probable pneumonitis versus CHF? distolic mild excerebation: Covid and flu test negative , continue oxygen, albuterol, steroids Pulmonary : Will continue supportive care including steroids, oxygen , discussed with pulm: Probably has nonspecific viral pneumonitis. HTN: Continue labetalol and amlodipine. Cad: Continue atorvastatin, Plavix, labetalol. Hypothyroidism: Continue levothyroxine. Hyperlipemia: continue with statin. HTN (hypertension): continue with amlodipine . continue with plavix home dose for underlying CAD. Diastolic CHF: continue with lasix home dose continue with spironolactone . Hypothyroid:continue with levothyroxine . Peripheral neuropathy: continue with gabapentin
[2020-06-17] MEDS: Docusate Sodium 100 MG CAPSULE 200 MG PO (22:06)
[2020-06-17] MEDS: Zolpidem Tartrate 5 MG TABLET PO (22:58)
[2020-06-18] VITALS: BP 138/63; PULSE 66; RESP 16; TEMP 36.3; O2SAT 94
--- NOTE | 2020-06-18 | XR_ITS ---
EXAMINATION: XR CHEST CLINICAL INFORMATION: Pneumonitis COMPARISON: Previous chest x-ray most recent 03/26/2020 and chest CTA 06/15/2020 TECHNIQUE: 2 views of the chest were obtained. FINDINGS: The cardiac and mediastinal contours are stable. There is question of increased attenuation in the right upper lobe in between the right fourth and fifth posterior ribs questionable for pneumonitis. This area measures approximately 2 cm. The lungs are otherwise clear. There is no pleural effusion or pneumothorax. Bony structures are unremarkable. XR/XR chest 2V IMPRESSION: Small area of increased attenuation in the right upper lobe questionable for pneumonitis. Otherwise unremarkable exam.
[2020-06-18 04:00] VITALS: BP 117/58; PULSE 70; RESP 16; TEMP 36.4; O2SAT 92
[2020-06-18] MEDS: guaiFENesin 100 MG/5 ML LIQUID PO ×2 (05:29→13:05)
[2020-06-18] MEDS: Levothyroxine Sodium 75 MCG TABLET PO (05:29)
[2020-06-18] MEDS: Omeprazole 20 MG CAPSULE.DR PO (05:30)
[2020-06-18] MEDS: Heparin Sodium,Porcine 5,000 UNIT/ML VIAL 5000 UNIT SUBCUT ×2 (05:30→13:05)
[2020-06-18] MEDS: LORazepam 1 MG TABLET PO ×2 (07:13→13:09)
[2020-06-18] MEDS: 0.9 % Sodium Chloride Flush 3 ML SYRINGE IVFLUSH ×2 (07:13→16:33)
[2020-06-18 07:18] VITALS: BP 127/60; PULSE 65; RESP 18; TEMP 36.1; O2SAT 95
[2020-06-18] MEDS: Spironolactone 25 MG TABLET 12.5 MG PO (08:44)
[2020-06-18] MEDS: Clopidogrel Bisulfate 75 MG TABLET PO (08:45)
[2020-06-18] MEDS: amLODIPine Besylate 10 MG TABLET PO (08:45)
[2020-06-18] MEDS: Labetalol HCL 100 MG TABLET PO (08:45)
[2020-06-18] MEDS: Furosemide 40 MG TABLET PO (08:45)
[2020-06-18] MEDS: estradioL 0.5 MG TABLET 2 MG PO (08:45)
[2020-06-18] MEDS: Gabapentin 600 MG TABLET PO ×3 (08:45→16:33)
[2020-06-18] MEDS: Atorvastatin Calcium 10 MG TABLET PO (08:45)
[2020-06-18] MEDS: Sertraline HCL 100 MG TABLET 150 MG PO (08:45)
[2020-06-18] MEDS: hydrALAZINE HCl 25 MG TABLET PO (08:47)
--- NOTE | 2020-06-18 09:22 | P.PNPL_ITS ---
Subjective Subjective Principal diagnosis: Interstitial pneumonitis Interval history: Feeling a little better , but still SOB , on exertion , and weak. Remains afebrile . No chest pain or discomfort . Uses CPAP at night regularly O2 . requirement , same 2L/mt , says on room air starts feeling SOB , but O2 sat remans in low 90s . Objective Data Labs CBC & Chem 7: 06/16/20 05:37 06/16/20 05:37 Labs: Laboratory Results - last 24 hr 06/15/20 19:57 Proteinase 3 (PR3) Ab <1.0 Myeloperoxidase Ab <1.0 Microbiology Microbiology Results: Microbiology 06/15/20 22:27 Blood - Venous Blood Culture - Preliminary No growth after 48 hours. 06/15/20 19:57 Blood - Venous Blood Culture - Preliminary No growth after 48 hours. Review of Systems Review of Systems Yes all other systems are reviewed and are negative Cardiovascular: Reports dyspnea Respiratory: Reports cough and Reports dyspnea Reports Abnormal speech present Physical Exam Vital Signs: Vital Signs: Last Vital Signs Temp 97.0 F 06/18/20 07:18 Pulse 65 06/18/20 07:18 Resp 18 06/18/20 07:18 BP 127/60 06/18/20 07:18 Pulse Ox 95 06/18/20 07:18 Body Mass Index 31.4 Const: General: tired appearing and well groomed; No no acute distress Orientation/consciousness: patient oriented x3 HENMT: Head: Yes normal to inspection General nose exam: No nasal polyps present, Normal nasal mucous membranes and turbinates present (mild nasal congestion ) and No nasal discharge present Face and sinus: Yes sinuses nontender Mouth: oropharynx normal Throat: Yes posterior oropharynx normal Eyes: General: appearance normal, both eyes and all related structures Neck: Neck: Yes normal visual inspection, Yes no lymphadenopathy, Yes trachea midline and Yes no JVD Thyroid: Thyroid normal Chest: Chest palpation & inspection: normal inspection of the chest and normal palpation of entire chest wall Resp: Other: Has good Breath sounds on both sides . Inspiratory creps , are heard over Rt . lower lobe today . No wheezes . Cardio: Palpation: normal PMI Rate: regular rate Rhythm: regular rhythm Heart sounds: Gallop heart sound present and Murmur heart sound present Peripheral pulses: Peripheral pulses 2+ throughout GI: Palpation (GI): Soft to palpation, nontender, No hepatosplenomegaly pres ent and no masses Auscultation: normal bowel sounds Back/Spine/Pelvis: Thoracic/Lumbar Spine: thoracic and lumbar spine normal to inspection Skin: General skin exam: no rashes or lesions noted Neuro: General: patient oriented x3 and no focal motor deficits Cranial nerves: Yes CN's II-XII intact bilaterally Speech: Abnormal speech present Extrem: General: Yes normal to inspection, Yes no clubbing, cyanosis or edema, Yes no calf tenderness and No venous stasis dermatitis Psych: Appearance: grossly normal Speech and movement: Normal speech and movement present Procedures Abscess I/D Date of Service: 06/18/20 Assessment and Plan Assessment and plan (1) Pneumonitis: Problem details: She has longstanding pneumonitis with no COVID positivity seen Possible Hypersensitivity , or viral pneumonitis, Status: Acute Assessment and Plan: Chest Xray today , to see if she has any new infilterates . May try to start her on oral steroids ,In her case instead of Prednisone we can try Medrol 4 mg 2 tabs po bid . Try to wean off O2 , and if she desaturates , then she may need to be discharged home on O2 . (2) DANIS (obstructive sleep apnea): Problem details: Continue to use CPAP at night . Status: Acute Time Spent With Patient Time: Total time spent is greater than 50% in coordination of care (as documented) at patient's floor/unit and/or counseling patient: Time with patient: 15 - 24 minutes
[2020-06-18 11:55] VITALS: BP 129/62; PULSE 75; RESP 18; TEMP 35.9; O2SAT 94
--- NOTE | 2020-06-18 13:37 | MHC.CM.PN ---
Patient continues to need O2 at 2 liters and CPAP at night. Does have home CPAP. Pulm rec to try to wean off O2 is not able will need home O2 eval. Discharge plan is to discharge home no services. [facility] will provide transportation. CM will continue to follow patient for discharge needs.
[2020-06-18 16:00] VITALS: BP 124/54; PULSE 74; RESP 20; TEMP 36.2; O2SAT 94; O2SAT 95
[2020-06-18] MEDS: methylPREDNISolone 4 MG TABLET 8 MG PO (16:31)
[2020-06-18 16:32] VITALS: BP 124/54; PULSE 77
[2020-06-18] MEDS: hydrALAZINE HCl 25 MG TABLET 75 MG PO (16:32)
--- NOTE | 2020-06-18 17:07 | P.DS_ITS ---
DS: Providers Provider Date of admission: 06/16/20 00:25 Date of discharge: 06/18/20 Primary care physician: Celestina Zimmerman MD Consults: 06/16/20 00:47 Consult to Infectious Diseases Routine Consulting Provider: Infectious Disease Reason for consultation: suspected covid Has provider been notified: No 06/16/20 08:46 Consult to Pulmonology Routine Consulting Provider: Jose L Ford Reason for consultation: chf vs pneumonitis Has provider been notified: No DS: Diagnosis Discharge Diagnosis (1) Pneumonitis: Status: Acute Problem details: She has longstanding pneumonitis with no COVID positivity seen Possible Hypersensitivity , or viral pneumonitis, (2) Diastolic dysfunction: Status: Acute DS: Medications Discharge Medications Home Medications: Home Medications Medication Instructions Recorded Confirmed atorvastatin 1 tab PO DAILY 06/15/20 06/15/20 clopidogrel 1 tab PO DAILY 06/15/20 06/15/20 estradiol 1 tab PO DAILY 06/15/20 06/15/20 [id number] 1 puff PO DAILY 06/15/20 06/15/20 [Trelegy Ellipta] furosemide 40 mg PO BID PRN 06/15/20 06/15/20 gabapentin 1 tab PO QID 06/15/20 06/15/20 gabapentin 1 tab PO QID 06/15/20 06/15/20 hydralazine 75 mg PO DAILY@1700 06/15/20 06/16/20 labetalol 1 tab PO BID 06/15/20 06/15/20 levothyroxine 1 tab PO DAILY 06/15/20 06/15/20 lorazepam 1 tab PO QID PRN 06/15/20 06/15/20 sertraline 1.5 tab PO DAILY 06/15/20 06/15/20 spironolactone 0.5 tab PO DAILY 06/15/20 06/15/20 sumatriptan succinate 1 tab PO Q2H PRN 06/15/20 06/15/20 zolpidem 1 tab PO BEDTIME 06/15/20 06/15/20 hydralazine 25 mg PO DAILY 06/16/20 06/16/20 Previous Rx's Medication Instructions Recorded amlodipine 10 mg tablet 10 mg PO QAM 90 Days #90 tab 06/16/20 DS: Summary Hospital Course Hospital Course: 69 y/o female with an extensive PMHx who presented from home due to SOB. Per history provided by the patient for quite some time patient has been having difficulty breathing which noticed has been more pronounced in the past several days for what decided to come to the ED for further evaluation. 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 Patient denies any symptoms such as fever, chest pain, nausea, vomiting, poor appetite or diarrhea. Denies any recent travel. On presentation WBC found to be 13, ESR of 29, CTA positive for bilateral groundglass opacities concerning for possible undelying viral infectious process. Covid and flu test done found to be negative. Patient continues to have hypoxia on room despite nebs and solumedrol per ED. Decision for admission given. Patient nathan and examined at the bedside, laying down in bed in no acute distress. ROS as above otherwise negative. Physical exam unremarkable. PMHX: HTN HLP CAD Hypothyroidism Celiac disease Syncope in the past Diastolic CHF Underlying Psychiatric disorder. hospital course problem ivey : Patient was initially admitted due to suspicion of COVID infection related pneumonia versus CHF exacerbation: Patient was started on steroids and albuterol , also continue to home Lasix : Subsequently patient was seen by infectious disease and pulmonary: It was thought that patient has probably nonspecific viral pneumonitis: Subsequently switched to high-dose IV steroids, patient shortness of breath improved significantly and now walking on room air and maintaining sats above 90%. In addition after discussion with infectious disease and pulmonary: Patient will need further workup including repeat chest imaging and probable bronchoscopy out patiently for further management theas determined by her pulmonary doctor Logan. Pulmonary recommended to discharge the patient on Medrol 8 mg p.o. b.i.d. for 2 weeks and further supply will be arranged by Pulmonary out patiently. Above management discussed with the patient in detail length she understand and in agreement with the above plan, time spent 50 minutes and 50% time spent on counseling. Significant findings: As above. Procedures performed: None. Treatment and response: As above. Complications: None. Time Spent with Patient Time attestation: Total time spent providing and/or coordinating discharge services: Physical Exam Vital Signs: Vital Signs: Last Vital Signs Temp 97.1 F 06/18/20 16:00 Pulse 77 06/18/20 16:32 Resp 20 06/18/20 16:00 BP 124/54 L 11/18/20 16:32 Pulse Ox 95 06/18/20 16:00 Body Mass Index 31.4 Physical exam: Cvs: rrr, [id number] , no murmur res: clear to auscultation ,no rhonchii or wheezing abd: no rebound or guarding ,nt, bs present. ext pulses present , no cyanosis neuro: axo3 , nonfocal. DS: Data Data Completed and Pending Labs on day of discharge: 06/15/20 19:09 ECG 12 lead EKG Stat EKG Documentation DIRECTED IV insert/maintain NOW 06/15/20 19:46 CT angio chest PE protocol Stat methylPREDNISolone Sod Succ/PF [SOLU-MedroL] 125 mg IVPUSH ONCE ONE 06/15/20 19:57 ANCA Vasculitides Stat B Type Natriuretic Peptide Stat Basic Metabolic Panel Stat Complete Blood Count Auto Diff Stat D Dimer Stat Erythrocyte Sedimentation Rate Stat Lactic Acid Stat SARS-CoV2/FLU/RSV Stat Troponin-I High Sensitivity Stat UA CC w/rflx Micro + Cult Stat 06/15/20 19:59 LORazepam [Ativan] 1 mg IVPUSH ONCE ONE 06/15/20 21:16 iohexoL 350 MG/ML [Omnipaque 350 MG/ML] 100 ml IV ONCE ONE 06/15/20 22:30 Arterial Blood Gas Routine 06/16/20 00:19 Furosemide [Lasix] 40 mg PO BID PRN 06/16/20 00:22 Transfer Order Routine 06/16/20 05:37 Basic Metabolic Panel Routine Complete Blood Count Auto Diff Routine SLIDE REVIEW Routine 06/16/20 06:00 methylPREDNISolone Sod Succ/PF [SOLU-MedroL] 40 mg IM DAILY 06/16/20 06:45 methylPREDNISolone Sod Succ/PF [SOLU-MedroL] 40 mg IV DAILY@0600 06/16/20 08:51 Respiratory Panel Stat 06/16/20 09:00 Gabapentin [Neurontin] 600 mg PO QID 06/17/20 06:20 Acetaminophen [Tylenol] 650 mg PO ONCE ONE 06/18/20 XR chest 2V Stat Laboratory Last Values WBC 9.5 X10*3/uL (4.8-10.8) 06/16/20 05:37 RBC 4.49 X10*6/uL (4.20-5.50) 06/16/20 05:37 Hgb 13.1 g/dl (12.0-16.0) 06/16/20 05:37 Hct 40.0 % (37-47) 06/16/20 05:37 MCV 89.1 fL (80-98) 06/16/20 05:37 MCH 29.2 pg (27.0-33.0) 06/16/20 05:37 MCHC 32.8 g/dl (31.0-35.0) 06/16/20 05:37 RDW 14.0 % (11.0-16.0) 06/16/20 05:37 Plt Count 302 X10*3/uL (160-400) 06/16/20 05:37 MPV 11.0 fL (9.4-12.3) 06/16/20 05:37 Immature Gran % (Auto) 0.6 % (0.0-0.4) H 06/16/20 05:37 Neut % (Auto) 90.6 % (45-73) H 06/16/20 05:37 Lymph % (Auto) 7.2 % (20-40) L 06/16/20 05:37 [place] % (Auto) 1.5 % (2-11) L 06/16/20 05:37 Eos % (Auto) 0.0 % (0-4) 06/16/20 05:37 Baso % (Auto) 0.1 % (0-2) 06/16/20 05:37 Lymph # (Auto) 0.7 X10*3/uL (1.2-4.9) L 06/16/20 05:37 [place] # (Auto) 0.1 X10*3/uL (0.1-1.2) 06/16/20 05:37 Eos # (Auto) 0.0 X10*3/uL (0.0-0.4) 06/16/20 05:37 Baso # (Auto) 0.0 X10*3/uL (0.0-0.2) 06/16/20 05:37 Abs Immat Gran (auto) 0.06 X10*3/uL (0.00-0.03) H 06/16/20 05:37 Absolute Neuts (auto) 8.6 X10*3/uL (2.0-8.3) H 06/16/20 05:37 Absolute Nucleated RBC 0.000 X10*3/uL (0.0-0.012) 06/16/20 05:37 Nucleated RBC % (auto) 0.0 /100WBC (0.0-0.2) 06/16/20 05:37 Smear Tech's Comments VERIFIED 06/16/20 05:37 ESR 29 MM/HR (0-20) H 06/15/20 19:57 D-Dimer 287 NG/ML 06/15/20 19:57 ABG pH 7.47 (7.35-7.45) H 06/15/20 22:30 ABG pCO2 38 mmhg (32-45) 06/15/20 22:30 ABG pO2 76 mmhg (83-108) L 06/15/20 22:30 ABG HCO3 27 mmol/l (22-26) H 06/15/20 22:30 ABG O2 Saturation 96.0 % 06/15/20 22:30 ABG Base Excess 3.9 06/15/20 22:30 Oxygen Given 2 L 06/15/20 22:30 Sodium 136 mmol/L (135-145) 06/16/20 05:37 Potassium 3.8 mmol/l (3.3-5.1) 06/16/20 05:37 Chloride 101 mmol/L (96-108) 06/16/20 05:37 Carbon Dioxide 22 mmol/L (22-29) 06/16/20 05:37 Anion Gap 17 (12-20) 06/16/20 05:37 BUN 19 mg/dL (9-16) H 06/16/20 05:37 Creatinine 1.02 mg/dL (0.5-1.4) 06/16/20 05:37 Estim Creat Clear Calc 55.1 06/16/20 05:37 Estimated GFR 54 06/16/20 05:37 Random Glucose 275 mg/dL (60-115) H D 06/16/20 05:37 Lactic Acid 1.5 mmol/L (0.5-2.0) 06/15/20 19:57 Calcium 8.7 mg/dL (8.4-10.2) 06/16/20 05:37 Troponin I High Sens 5.7 ng/L (<3.5-17.0) 06/15/20 19:57 B-Natriuretic Peptide 122 pg/mL (<100) H 06/15/20 19:57 Urine Color YELLOW 06/15/20 19:57 Urine Appearance CLEAR 06/15/20 19:57 Urine pH 6.5 (5.0-8.0) 06/15/20 19:57 Ur Specific [place] 1.010 (1.005-1.025) 06/15/20 19:57 Urine Protein NEG MG/DL (NEG-TRACE) 06/15/20 19:57 Urine Glucose (UA) NEG MG/DL (NEG) 06/15/20 19:57 Urine Ketones NEG MG/DL (NEG) 06/15/20 19:57 Urine Blood NEG (NEG) 06/15/20 19:57 Urine Nitrite NEG (NEG) 06/15/20 19:57 Ur Leukocyte Esterase NEG (NEG) 06/15/20 19:57 Proteinase 3 (PR3) Ab <1.0 AI 06/15/20:57 Myeloperoxidase Ab <1.0 AI 06/15/20 19:57 Respiratory Panel [place] See Note 06/16/20 08:51 Adenovirus (Rapid PCR) Not Detected (Not Detect.) 06/16/20 08:51 B.pert (TEM-PCR) Not Detected (Not Detect.) 06/16/20 08:51 B.parapertussis DNA PCR Not Detected (Not Detect.) 06/16/20 08:51 C. pneumoniae DNA (PCR) Not Detected (Not Detect.) 06/16/20 08:51 Coronavirus (PCR) NEGATIVE (Negative) 06/15/20 19:57 Coronavirus OC43 (PCR) Not Detected (Not Detect.) 06/16/20 08:51 Coronavirus HKU1 (PCR) Not Detected (Not Detect.) 06/16/20 08:51 Coronavirus 229E (PCR) Not Detected (Not Detect.) 06/16/20 08:51 Coronavirus NL63 (PCR) Not Detected (Not Detect.) 06/16/20 08:51 Human Metapneumovir PCR Not Detected (Not Detect.) 06/16/20 08:51 Influenza A (RT-PCR) Not Detected (Not Detect.) 06/16/20 08:51 Influenza Type A (PCR) NEGATIVE (Negative) 06/15/20 19:57 Influenza B (RT-PCR) Not Detected (Not Detect.) 06/16/20 08:51 Influenza Type B (PCR) NEGATIVE (Negative) 06/15/20 19:57 M. pneumoniae (PCR) Not Detected (Not Detect.) 06/16/20 08:51 Parainfluenza 1 (PCR) Not Detected (Not Detect.) 06/16/20 08:51 Parainfluenza 2 (PCR) Not Detected (Not Detect.) 06/16/20 08:51 Parainfluenza 3 (PCR) Not Detected (Not Detect.) 06/16/20 08:51 Parainfluenza 4 (PCR) Not Detected (Not Detect.) 06/16/20 08:51 RSV (PCR) Not Detected (Not Detect.) 06/16/20 08:51 RSV RNA Qual (PCR) NEGATIVE (Negative) 06/15/20 19:57 Entero/Rhino (PCR) Not Detected (Not Detect.) 06/16/20 08:51 SARS-CoV-2 RNA (RT-PCR) Not Detected (Not Detect.) 06/16/20 08:51 Preliminary micro results at discharge 06/15/20 22:27 Blood Culture - Preliminary Blood - Venous No growth after 48 hours. 06/15/20 19:57 Blood Culture - Preliminary Blood - Venous No growth after 48 hours. Discharge Plan Discharge Patient Disposition: Home, Self-Care Referrals: Celestina Zimmerman MD [Primary Care Provider] - Discharge Medications: New methylprednisolone 4 mg Tablet 8 mg PO BIDWM Qty: 28 RF: 0 omeprazole 20 mg capsule,delayed release(DR/EC) 20 mg PO DAILY Qty: 30 RF: 0 Continued amlodipine 10 mg tablet 10 mg PO QAM 90 Days Qty: 90 RF: 3 furosemide 40 mg tablet 40 mg PO BID PRN (Reason: Weight Gain) RF: 0 gabapentin 600 mg tablet 1 tab PO QID RF: 0 gabapentin 600 mg tablet 1 tab PO QID RF: 0 atorvastatin 10 mg tablet 1 tab PO DAILY RF: 0 sumatriptan succinate 100 mg tablet 1 tab PO Q2H PRN (Reason: migraine) RF: 0 sertraline 100 mg tablet 1.5 tab PO DAILY RF: 0 hydralazine 25 mg tablet 75 mg PO DAILY@1700 RF: 0 clopidogrel 75 mg tablet 1 tab PO DAILY RF: 0 spironolactone 25 mg tablet 0.5 tab PO DAILY RF: 0 levothyroxine 75 mcg tablet 1 tab PO DAILY RF: 0 estradiol 2 mg tablet 1 tab PO DAILY RF: 0 zolpidem 5 mg tablet 1 tab PO BEDTIME RF: 0 lorazepam 1 mg tablet 1 tab PO QID PRN (Reason: anxiety) RF: 0 labetalol 100 mg tablet 1 tab PO BID RF: 0 Trelegy Ellipta 100-62.5-25 mcg blister with device 1 puff PO DAILY RF: 0 hydralazine 25 mg Tablet 25 mg PO DAILY RF: 0 Discharge Orders: Discharge Order (Routine); Ordered 06/18/20 Ordered By: Joseph Pacheco Diet: advance to usual diet Activity on Discharge: As tolerated Visit Report Forms: Patient Portal Discharge page Care Plan Goals: Patient symptoms thought to be related to nonspecific viral pneumonitis: Which is improving with the steroids, patient is going home with p.o. steroids patient is to follow up with Pulmonary for further need of steroids as well as need chest imaging and further workup outpatient with Dr. Ford within 2 weeks time, of above was discussed with patient in detail. Health Concerns: As above. Plan of Treatment: As above.
== END 2020-06-18 18:05 | disposition home or self-care (01) | DRG 291 ==
LOC: HO.ED 06-16 01:02 → HO.IMC 06-16 01:04
PROVIDERS: Nurse Practitioner Family; Admitting Provider Internal Medicine; Emergency Provider Emergency Medicine; PCP Internal Medicine; Visit Provider Internal Medicine
DX: I11.0 Hypertensive heart disease with heart failure (principal); J12.89 Other viral pneumonia; I50.33 Acute on chronic diastolic (congestive) heart failure; G62.9 Polyneuropathy, unspecified; K90.0 Celiac disease; J84.89 Other specified interstitial pulmonary diseases; E78.5 Hyperlipidemia, unspecified; E03.9 Hypothyroidism, unspecified; Z20.828 Contact with and (suspected) exposure to other viral communicable diseases; Z88.2 Allergy status to sulfonamides; Z79.02 Long term (current) use of antithrombotics/antiplatelets; Z79.890 Hormone replacement therapy; Z79.899 Other long term (current) drug therapy
CPT/HCPCS: 0241U; 36415; 71046; 71275; 80048; 81003; 82803; 83605; 83880; 84484; 85025; 85379; 85652; 86021; 87040; 87633; 93005; 94660; 96374; 96375; 99285; 99291; J2060; J2920; J2930; Q9967

== ENCOUNTER → 2020-07-01 13:42 | Outpatient (BNVA) | payer MEDICARE, SELFPAY | PROVIDERS: PCP Internal Medicine; Referring Provider Internal Medicine; Visit Provider Hospitalist | DX: J18.9 Pneumonia, unspecified organism (principal); G47.33 Obstructive sleep apnea (adult) (pediatric); K90.0 Celiac disease; Z20.828 Contact with and (suspected) exposure to other viral communicable diseases; Z99.89 Dependence on other enabling machines and devices | CPT/HCPCS: 99212 ==

== ENCOUNTER → 2020-07-03 13:43 | Outpatient (BNVA) | payer MEDICARE, SELFPAY | PROVIDERS: PCP Internal Medicine; Referring Provider Internal Medicine; Visit Provider Internal Medicine Cardiovascular Disease | DX: I51.89 Other ill-defined heart diseases (principal); J18.9 Pneumonia, unspecified organism; R06.02 Shortness of breath; G90.3 Multi-system degeneration of the autonomic nervous system | CPT/HCPCS: 99212 ==

== ENCOUNTER 2020-07-04 15:39 | Outpatient (REF) | payer MEDICARE, SELFPAY ==
[2020-07-04 16:59] LABS: Hematocrit 43.1 % (37-47); Hemoglobin 14.1 g/dl (12.0-16.0); Mean Corpuscular HGB Conc 32.7 g/dl (31.0-35.0); Mean Corpuscular Hemoglobin 29.5 pg (27.0-33.0); Mean Corpuscular Volume 90.2 fL (80-98); Mean Platelet Volume 10.4 fL (9.4-12.3); Platelet Count 249 X10*3/uL (160-400); Red Blood Count 4.78 X10*6/uL (4.20-5.50); Red Cell Distribution Width 14.9 % (11.0-16.0); White Blood Count 9.2 X10*3/uL (4.8-10.8)
[2020-07-04 17:28] LABS: Glucose Urine UA NEG (NEG); Leukocyte Esterase Urine TRACE (NEG); Nitrite Urine NEG (NEG); PH 6.5 (5.0-8.0); Urine Blood NEG (NEG); Urine Ketones NEG (NEG); Urine Protein NEG (NEG-TRACE)
[2020-07-04 17:28] LABS: Alanine Aminotransferase 47 U/L (0-31); Alkaline Phosphatase 90 U/L (39-117); Anion Gap 13 (12-20); Aspartate Amino Transferase 32 U/L (5-31); Bilirubin Total 0.6 mg/dL (0.0-1.0); Blood Urea Nitrogen 35 mg/dL (9-16); Calcium 8.6 mg/dL (8.4-10.2); Carbon Dioxide 29 mmol/L (22-29); Chloride 99 mmol/L (96-108); Cholesterol 200 mg/dL; Estimated Glomerular Filt Rate > 60; Glucose Fasting 77 mg/dL (60-99); HDL Cholesterol 84 mg/dL; LDL Cholesterol Calculated 96 mg/dl; Potassium 4.2 mmol/l (3.3-5.1); Sodium 137 mmol/L (135-145); Total Protein 6.6 g/dL (6.5-8.0); Triglycerides 101 mg/dL
[2020-07-04 17:33] LABS: Appearance Urine CLEAR; Color Urine YELLOW
[2020-07-04 17:44] LABS: Thyroid Stimulating Hormone 2.09 uIU/mL (0.32-4.0)
[2020-07-04 18:00] LABS: RBC Urine 0 /HPF (0); WBC Urine 0-2 /HPF (0-4)
[2020-07-04 19:38] LABS: Erythrocyte Sedimentation Rate 2 MM/HR (0-20)
[2020-07-06 12:03] LABS: Anti DNA DS Antibody 1 IU/mL; Antibody to SS-A Antigen <1.0 NEG AI (<1.0 NEG); Antibody to SS-B Antigen <1.0 NEG AI (<1.0 NEG)
== END 2020-07-04 15:40 | disposition home or self-care (01) ==
LOC: HO.LAB 15:39
PROVIDERS: PCP Internal Medicine; Visit Provider Hospitalist
DX: I11.0 Hypertensive heart disease with heart failure (principal); E78.5 Hyperlipidemia, unspecified; I50.30 Unspecified diastolic (congestive) heart failure; E03.9 Hypothyroidism, unspecified; J18.9 Pneumonia, unspecified organism; G47.33 Obstructive sleep apnea (adult) (pediatric); K90.0 Celiac disease; Z99.89 Dependence on other enabling machines and devices
CPT/HCPCS: 36415; 80053; 80061; 81001; 84443; 85027; 85652; 86225; 86235

== ENCOUNTER 2020-07-07 15:31 | Outpatient (REF) | payer MEDICARE, SELFPAY ==
[2020-07-13 02:48] LABS: Aldolase 4.2 U/L (<=8.1)
[2020-07-16 20:57] LABS: Angiotensin Converting Enzyme 15 U/L (9-67)
== END 2020-07-07 15:32 | disposition home or self-care (01) ==
LOC: HO.LAB 15:31
PROVIDERS: Absent Provider Internal Medicine; PCP Internal Medicine; Visit Provider Hospitalist
DX: G47.33 Obstructive sleep apnea (adult) (pediatric) (principal); J18.9 Pneumonia, unspecified organism; K90.0 Celiac disease; Z99.89 Dependence on other enabling machines and devices
CPT/HCPCS: 82085; 82164

== ENCOUNTER → 2020-07-22 14:29 | Outpatient (BNVA) | payer MEDICARE, SELFPAY | PROVIDERS: PCP Internal Medicine; Visit Provider Internal Medicine Pulmonary Disease | DX: B37.0 Candidal stomatitis (principal) | CPT/HCPCS: 99212 ==

== ENCOUNTER 2020-08-04 13:21 | Outpatient (REF) | payer MEDICARE, SELFPAY ==
--- NOTE | 2020-08-04 13:23 | CT_ITS ---
EXAMINATION: CT CHEST WITHOUT CONTRAST CLINICAL INFORMATION: Pneumonia COMPARISON: Previous chest x-ray and chest CTA June 2020 TECHNIQUE: Multidetector volumetric CT imaging of the chest was done. Axial MIP volume rendering provided. Sagittal and coronal reformatted images were obtained. This CT examination was performed using dose optimization techniques as appropriate, variously including the following: *Automated exposure control *Adjustment of mA and/or kV according to patient size (this includes techniques or standardized protocols for targeted exams where dose is matched to indication/reason for exam; i.e. 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 There is a small area of increased peripheral or subpleural markings in the right upper lobe axial image 189 series 7 suggestive of scarring/subsegmental atelectasis. This area measures up to 1cm. The lungs are otherwise clear. No new infiltrate is seen. MEDIASTINUM: The mediastinum is normal. PLEURA: There is no pleural effusion. No pleural mass or thickening. AXILLA: No lymphadenopathy. UPPER ABDOMEN: Unremarkable. OSSEOUS STRUCTURES: Unremarkable. CT/CT chest wo con IMPRESSION: Scarring or subsegmental atelectasis in the peripheral right upper lobe. Resolved groundglass attenuation infiltrates from June 2020 exam.
== END 2020-08-04 13:22 | disposition home or self-care (01) ==
LOC: HO.CT 13:21
PROVIDERS: PCP Internal Medicine; Visit Provider Hospitalist
DX: J18.9 Pneumonia, unspecified organism (principal)
CPT/HCPCS: 71250

== ENCOUNTER → 2020-08-22 13:29 | Outpatient (BNVA) | payer MEDICARE, SELFPAY | PROVIDERS: PCP Internal Medicine; Visit Provider Hospitalist | DX: Z13.89 Encounter for screening for other disorder (principal) | CPT/HCPCS: Q3014 ==

== ENCOUNTER 2020-08-23 10:09 | Outpatient (REF) | payer MEDICARE, SELFPAY ==
--- NOTE | 2020-08-23 10:29 | XR_ITS ---
EXAMINATION: XR CHEST CLINICAL INFORMATION: Pneumonia COMPARISON: 06/18/2020 TECHNIQUE: 2 views of the chest were obtained. FINDINGS: No focal consolidation or mass. No pleural effusion or pneumothorax. Normal heart size. Regional skeleton intact. Normal heart size. No acute osseous abnormality. XR/XR chest 2V IMPRESSION: No acute pulmonary disease. Similar appearance to the prior study.
== END 2020-08-23 10:10 | disposition home or self-care (01) ==
LOC: HO.XRAY 10:09
PROVIDERS: PCP Internal Medicine; Visit Provider Hospitalist
DX: J18.9 Pneumonia, unspecified organism (principal)
CPT/HCPCS: 71046

== ENCOUNTER → 2020-09-08 14:35 | Outpatient (BNVA) | payer MEDICARE, SELFPAY | PROVIDERS: PCP Internal Medicine; Visit Provider Nurse Practitioner | CPT/HCPCS: Q3014 ==

== ENCOUNTER 2020-09-12 15:14 | Outpatient (REF) | payer MEDICARE, SELFPAY ==
[2020-09-12 16:24] LABS: B Type Natriuretic Peptide 95 pg/mL (<100)
== END 2020-09-12 15:15 | disposition home or self-care (01) ==
LOC: HO.LAB 15:14
PROVIDERS: PCP Internal Medicine; Visit Provider Internal Medicine Cardiovascular Disease
DX: R06.02 Shortness of breath (principal)
CPT/HCPCS: 36415; 83880

== ENCOUNTER 2020-09-18 13:18 | Outpatient (REF) | payer MEDICARE, SELFPAY ==
[2020-09-18 16:39] LABS: Appearance Urine CLEAR; Color Urine YELLOW; Glucose Urine UA NEG (NEG); Leukocyte Esterase Urine NEG (NEG); Nitrite Urine NEG (NEG); Urine Blood NEG (NEG); Urine Ketones NEG (NEG); Urine Protein NEG (NEG-TRACE)
[2020-09-18 16:47] LABS: Bacteria Urine TRACE /LPF; RBC Urine 0-2 /HPF (0); Squamous Epithelial Cell Urine TRACE /LPF; WBC Urine 0 /HPF (0-4)
[2020-09-19 08:27] LABS: ~Hepatitis B Surface Antibody REACTIVE (Nonreactive)
[2020-09-19 17:22] LABS: Rubella IgG Antibody 9.79 Index; Rubeola IgG (Measles) >300.00 AU/mL
== END 2020-09-18 13:19 | disposition home or self-care (01) ==
LOC: HO.HMGCLDS 13:18
PROVIDERS: PCP Internal Medicine; Visit Provider Internal Medicine
DX: Z02.1 Encounter for pre-employment examination (principal); I11.9 Hypertensive heart disease without heart failure; E78.5 Hyperlipidemia, unspecified; E03.9 Hypothyroidism, unspecified
CPT/HCPCS: 36415; 81001; 86706; 86735; 86762; 86765; 86787

== ENCOUNTER 2020-09-23 11:38 | Outpatient (REF) | payer MEDICARE, SELFPAY ==
--- NOTE | ~2020-09-23 | XR_ITS ---
EXAMINATION: XR CHEST CLINICAL INFORMATION: Pneumonia COMPARISON: Previous chest x-rays most recent 08/23/2020 TECHNIQUE: 2 views of the chest were obtained. FINDINGS: The cardiac and mediastinal contours are stable. The lungs are clear without evidence of pneumonia. There is no pleural effusion or pneumothorax. Bony structures are unremarkable. XR/XR chest 2V IMPRESSION: Unremarkable examination.
[2020-09-23 13:02] LABS: MANUAL DIFF FLAG NO
[2020-09-23 13:12] LABS: Basophils Absolute Auto 0.1 X10*3/uL (0.0-0.2); Basophils Percent Auto 1.2 % (0-2); Eosinophils Absolute Auto 0.3 X10*3/uL (0.0-0.4); Eosinophils Percent Auto 4.6 % (0-4); Hematocrit 41.7 % (37-47); Hemoglobin 13.5 g/dl (12.0-16.0); Imm Gran Abs Auto 0.01 X10*3/uL (0.00-0.03); Imm Gran Pct Auto 0.2 % (0.0-0.4); Lymphocytes Absolute Auto 1.4 X10*3/uL (1.2-4.9); Lymphocytes Percent Auto 21.6 % (20-40); Mean Corpuscular HGB Conc 32.4 g/dl (31.0-35.0); Mean Corpuscular Hemoglobin 29.4 pg (27.0-33.0); Mean Corpuscular Volume 90.8 fL (80-98); Mean Platelet Volume 10.9 fL (9.4-12.3); Monocytes Absolute Auto 0.9 X10*3/uL (0.1-1.2); Monocytes Percent Auto 13.6 % (2-11); Neutrophils Absolute Auto 3.8 X10*3/uL (2.0-8.3); Neutrophils Percent Auto 58.8 % (45-73); Platelet Count 271 X10*3/uL (160-400); Red Blood Count 4.59 X10*6/uL (4.20-5.50); White Blood Count 6.5 X10*3/uL (4.8-10.8)
[2020-09-23 13:39] LABS: Alanine Aminotransferase 45 U/L (0-31); Albumin Level 4.5 g/dL (3.5-5.0); Alkaline Phosphatase 104 U/L (39-117); Anion Gap 13 (12-20); Aspartate Amino Transferase 45 U/L (5-31); Bilirubin Total 0.6 mg/dL (0.0-1.0); Blood Urea Nitrogen 24 mg/dL (9-16); Calcium 9.6 mg/dL (8.4-10.2); Carbon Dioxide 33 mmol/L (22-29); Chloride 98 mmol/L (96-108); Estimated Glomerular Filt Rate 53; Glucose Random 95 mg/dL (60-115); Potassium 3.9 mmol/L (3.3-5.1); Sodium 140 mmol/L (135-145); Total Protein 7.6 g/dL (6.5-8.0)
[2020-09-23 13:56] LABS: B Type Natriuretic Peptide 48 pg/mL (<100)
== END 2020-09-23 11:39 | disposition home or self-care (01) ==
LOC: HO.XRAY 11:38
PROVIDERS: Absent Provider Hospitalist; PCP Internal Medicine; Visit Provider Nurse Practitioner Family
DX: J18.9 Pneumonia, unspecified organism (principal); R06.02 Shortness of breath; I11.0 Hypertensive heart disease with heart failure; I50.33 Acute on chronic diastolic (congestive) heart failure; G47.33 Obstructive sleep apnea (adult) (pediatric); G90.3 Multi-system degeneration of the autonomic nervous system; Z79.899 Other long term (current) drug therapy
CPT/HCPCS: 36415; 71046; 80053; 83880; 85025; 99212

== ENCOUNTER 2020-09-29 09:09 | Outpatient (REF) | payer MEDICARE, SELFPAY ==
[2020-09-29 11:14] LABS: MANUAL DIFF FLAG NO
[2020-09-29 11:33] LABS: Anion Gap 15 (12-20); Blood Urea Nitrogen 27 mg/dL (9-16); Calcium 9.8 mg/dL (8.4-10.2); Carbon Dioxide 28 mmol/L (22-29); Chloride 101 mmol/L (96-108); Estimated Glomerular Filt Rate 57; Glucose Random 96 mg/dL (60-115); Potassium 4.4 mmol/L (3.3-5.1); Sodium 140 mmol/L (135-145)
[2020-09-29 11:37] LABS: B Type Natriuretic Peptide 33 pg/mL (<100); Troponin-I High Sensitivity < 3.5 ng/L (<3.5-17.0)
[2020-09-29 11:41] LABS: D Dimer < 200 NG/ML
[2020-09-29 11:47] LABS: Basophils Absolute Auto 0.1 X10*3/uL (0.0-0.2); Basophils Percent Auto 1.5 % (0-2); Eosinophils Absolute Auto 0.2 X10*3/uL (0.0-0.4); Eosinophils Percent Auto 3.5 % (0-4); Hematocrit 43.9 % (37-47); Imm Gran Abs Auto 0.02 X10*3/uL (0.00-0.03); Imm Gran Pct Auto 0.3 % (0.0-0.4); Lymphocytes Absolute Auto 1.3 X10*3/uL (1.2-4.9); Lymphocytes Percent Auto 21.6 % (20-40); Mean Corpuscular HGB Conc 31.9 g/dl (31.0-35.0); Mean Corpuscular Hemoglobin 29.3 pg (27.0-33.0); Mean Corpuscular Volume 91.8 fL (80-98); Mean Platelet Volume 11.8 fL (9.4-12.3); Monocytes Absolute Auto 0.7 X10*3/uL (0.1-1.2); Monocytes Percent Auto 11.4 % (2-11); Neutrophils Absolute Auto 3.7 X10*3/uL (2.0-8.3); Neutrophils Percent Auto 61.7 % (45-73); Platelet Count 203 X10*3/uL (160-400); Red Blood Count 4.78 X10*6/uL (4.20-5.50); Red Cell Distribution Width 15.2 % (11.0-16.0); White Blood Count 6.1 X10*3/uL (4.8-10.8)
[2020-09-29 11:50] LABS: SARS COV2 IgG Negative (Negative)
[2020-09-29 11:52] LABS: HIV AB/AG Nonreactive (Nonreactive); HIV Num 1 0.07 S/CO (0.00-0.99)
[2020-09-29 13:06] LABS: Erythrocyte Sedimentation Rate 11 MM/HR (0-20)
[2020-10-01 12:38] LABS: Cyclic Citrullinated Peptide <16 UNITS
[2020-10-02 13:16] LABS: Myeloperoxidase Antibody <1.0 AI; Proteinase 3 PR3 Antibodies <1.0 AI
[2020-10-03 01:11] LABS: Immunoglobulin E 7 kU/L (<OR=114)
== END 2020-09-29 09:10 | disposition home or self-care (01) ==
LOC: HO.LAB 09:09
PROVIDERS: PCP Internal Medicine; Visit Provider Hospitalist
DX: J44.9 Chronic obstructive pulmonary disease, unspecified (principal); R60.0 Localized edema; J18.9 Pneumonia, unspecified organism; R06.00 Dyspnea, unspecified; I50.30 Unspecified diastolic (congestive) heart failure; Z01.84 Encounter for antibody response examination; G47.33 Obstructive sleep apnea (adult) (pediatric); K90.0 Celiac disease; I27.20 Pulmonary hypertension, unspecified; Z79.899 Other long term (current) drug therapy; Z99.89 Dependence on other enabling machines and devices
CPT/HCPCS: 36415; 80048; 82785; 83880; 84484; 85025; 85379; 85652; 86021; 86200; 86769; 87389; 99212

== ENCOUNTER 2020-10-02 13:00 | Outpatient (REF) | payer MEDICARE, SELFPAY ==
--- NOTE | ~2020-10-02 | CT_ITS ---
EXAMINATION: CT CHEST WITHOUT CONTRAST CLINICAL INFORMATION: Pneumonia. COMPARISON: Chest 09/23/2020. TECHNIQUE: Multidetector volumetric CT imaging of the chest was done. Axial MIP volume rendering provided. Sagittal and coronal reformatted images were obtained. This CT examination was performed using dose optimization techniques as appropriate, variously including the following: *Automated exposure control *Adjustment of mA and/or kV according to patient size (this includes techniques or standardized protocols for targeted exams where dose is matched to indication/reason for exam; i.e. extremities or head) *Use of iterative reconstruction technique DLP: 148 mGy-cm. 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 LUNGS: The lungs are well expanded and clear acute pneumonic process. There is an ill-defined patchy opacity right upper lobe adjacent to the anterior minor fissure, likely focal atelectasis. There is a 2 mm nodule right upper lobe axial image 308/8. No additional nodules seen. No acute consolidation, additional nodule or mass seen. MEDIASTINUM: The thyroid lobes are symmetrical and normal. The central trachea and the bronchi are widely patent. The heart size and the great vessels are normal caliber. No abnormal-sized meters lymph nodes or mass seen. PLEURA: There is no pleural effusion. No pleural mass or thickening. AXILLA: No abnormal lymph nodes seen. The chest wall appears unremarkable. UPPER ABDOMEN: Visualized liver, spleen, pancreas and bilateral adrenal glands are unremarkable. OSSEOUS STRUCTURES: No lytic or sclerotic process seen. CT/CT chest wo con IMPRESSION: No acute cardiopulmonary process seen. Focal ill-defined patchy opacity right upper lobe likely atelectatic changes. Otherwise rest of the lungs are clear. No acute consolidation seen.
== END 2020-10-02 13:01 | disposition home or self-care (01) ==
LOC: HO.CT 13:00
PROVIDERS: PCP Internal Medicine; Visit Provider Hospitalist
DX: J18.9 Pneumonia, unspecified organism (principal)
CPT/HCPCS: 71250

== ENCOUNTER 2020-10-21 10:32 | Day surgery (SDC) | payer MEDICARE, SELFPAY ==
[2020-10-14 14:23] VITALS: BMI 33.3
--- NOTE | 2020-10-20 09:01 | HO.ANESPROP2 ---
Documented by User: Aggie Samuels 10/20/20 09:54 HPI - Anesthesia Eval Consult details Narrative: 70yo F for Bronchoscopy Fiberoptic 09/2020 CHF exac with prednisone use, improved with increasing lasix Plavix for chronic microvascular changes (sensitivity to asa) - per [facility] neurologist note PMFSH Active Problems Active Problems: All Active Problems (Updated 10/14/20 @ 14:32 by Rashmi Reyes) Diastolic dysfunction (Acute) Suspected COVID-19 virus infection (Acute) SOB (shortness of breath) on exertion (Acute) Thrush (Acute) Irritable bowel syndrome with diarrhea (Acute) Colon cancer screening (Acute) Pre-employment health screening examination (Acute) Dyspnea (Acute) Diastolic CHF (Acute) Pneumonitis (Acute) Mammogram normal (Acute) DANIS on CPAP (Acute) Orthostatic hypotension dysautonomic syndrome (Acute) Celiac disease (Acute) Past Medical History Medical History Celiac disease Diastolic CHF Dyspnea History of concussion HTN (hypertension) Hyperlipemia Hypothyroid Hypoxemia requiring supplemental oxygen Lower extremity edema Mammogram normal Nonspecific interstitial pneumonitis Orthostatic hypotension dysautonomic syndrome DANIS on CPAP Peripheral neuropathy Pneumonitis Psychiatric disorder Pulmonary hypertension Shortness of breath Family History Family History Father [place] cell cancer HTN (hypertension) CVD (cardiovascular disease) Mother Crohn disease Cancer Maternal Grandfather No problems noted. Maternal Grandmother No problems noted. Paternal Grandfather CVD (cardiovascular disease) Paternal Grandmother COPD (chronic obstructive pulmonary disease) Brother No problems noted. Sister No problems noted. Daughter No problems noted. Surgical History Surgical History Endometrial adenocarcinoma History of colonoscopy History of total abdominal hysterectomy and bilateral salpingo-oophorectomy Social History Social History Household Members: Spouse Are you a primary physician primary care sports medicine to a significant other at home: No Do you presently have visiting nurse or other home services: No Alcohol intake: current Alcohol intake frequency: holidays/special occasions only Smoking Status: Never smoker Use of substances other than those prescribed or required for medical reasons: No Have you been hit, kicked, punched, or otherwise hurt by someone within the past year? If so, by whom?: No Advance Directives: No Advance Directives Information Provided: No Advance Directives on File: No Recently lost weight without trying: No service: No Current occupational status: retired Meds Allergies Allergy/AdvReac Type Severity Reaction Status Date / Time gluten [GLUTEN] Allergy Unknown ABD PAIN Verified 10/14/20 14:19 Sulfa (Sulfonamide Allergy Unknown Rash Verified 10/14/20 14:19 Antibiotics) [SULFA(SULFONAMIDE ANTIBIOTICS)] mirtazapine AdvReac Unknown peripheral Verified 10/14/20 14:19 edema Home Medications Medication Instructions Recorded Confirmed Last Taken Type Trelegy Ellipta 1 puff PO DAILY 06/15/20 10/14/20 06/15/20 History atorvastatin 1 tab PO DAILY 06/15/20 10/14/20 06/15/20 History clopidogrel 1 tab PO DAILY 06/15/20 10/14/20 10/13/20 History estradiol 1 tab PO DAILY 06/15/20 10/14/20 06/15/20 History gabapentin 1 tab PO QID 06/15/20 10/14/20 06/15/20 History levothyroxine 1 tab PO DAILY 06/15/20 10/14/20 06/15/20 History lorazepam 1 tab PO QID PRN 06/15/20 10/14/20 06/15/20 History sertraline 1.5 tab PO DAILY 06/15/20 10/14/20 06/15/20 History sumatriptan succinate 1 tab PO Q2H PRN 06/15/20 10/14/20 Unknown History zolpidem 1 tab PO BEDTIME 06/15/20 10/14/20 06/14/20 History flu vacc (66yr 0.5 ml IM DIRECTED 07/01/20 09/29/20 Unknown History up)-MF59C(PF) 60 mcg(15 mcgx4)/0.5 mL IM syringe furosemide 40 mg tablet 40 mg PO DAILY PRN tab 07/03/20 10/14/20 Unknown History mirtazapine 15 mg tablet 15 mg PO BEDTIME 09/23/20 10/14/20 Unknown History Exam Exam Date and Time: October 20, 2020 0901 Height,Weight and Vital Signs: Height 5 ft 5 in Weight 90.718 kg Pertinent Lab Results Pertinent Lab Results: Laboratory Tests 09/29/20 09/29/20 09/29/20 10:15 10:15 10:15 WBC 6.1 Hgb 14.0 Hct 43.9 Plt Count 203 D D-Dimer < 200 Sodium 140 Potassium 4.4 Chloride 101 Carbon Dioxide 28 BUN 27 H Creatinine 0.97 Troponin I High Sens B-Natriuretic Peptide SARS-CoV-2 IgG Ab 09/29/20 09/29/20 10:15 10:15 WBC Hgb Hct Plt Count D-Dimer Sodium Potassium Chloride Carbon Dioxide BUN Creatinine Troponin I High Sens < 3.5 B-Natriuretic Peptide 33 SARS-CoV-2 IgG Ab Negative Narrative Narrative: EKG 06/2020 Normal sinus rhythm Normal ECG When compared with ECG of 23-FEB-2020 16:21, No significant change was found {Echocardiogram 01/20/2020 shows normal LV function, grade 2 diastolic dysfunction, normal RV systolic pressure. Previous cardiac catheterization showed normal coronary arteries. Recent CTA of coronaries showed bilateral pulmonary infiltrates, inflammation. She underwent a right heart catheterization on 04/11/2020 which showed normal left and right-sided filling pressures.} - per cardiology office visit note CT chest wo con 09/2020 IMPRESSION: No acute cardiopulmonary process seen. Assessment and Plan Assessment Anesthesia Assessment: Chart Reviewed Documented by User: Mago Herrera 10/21/20 11:36 [facility] Past Medical History Medical History Celiac disease Diastolic CHF Dyspnea History of concussion HTN (hypertension) Hyperlipemia Hypothyroid Hypoxemia requiring supplemental oxygen Lower extremity edema Mammogram normal Nonspecific interstitial pneumonitis Orthostatic hypotension dysautonomic syndrome DANIS on CPAP Peripheral neuropathy Pneumonitis Psychiatric disorder Pulmonary hypertension Shortness of breath Family History Family History Father [place] cell cancer HTN (hypertension) CVD (cardiovascular disease) Mother Crohn disease Cancer Maternal Grandfather No problems noted. Maternal Grandmother No problems noted. Paternal Grandfather CVD (cardiovascular disease) Paternal Grandmother COPD (chronic obstructive pulmonary disease) Brother No problems noted. Sister No problems noted. Daughter No problems noted. Family history of problems with anesthesia: No Surgical History Surgical History Endometrial adenocarcinoma History of colonoscopy History of total abdominal hysterectomy and bilateral salpingo-oophorectomy History of Problems with Anesthesia: No Social History Social History Household Members: Spouse Are you a primary physician primary care sports medicine to a significant other at home: No Do you presently have visiting nurse or other home services: No Alcohol intake: current Alcohol intake frequency: holidays/special occasions only Smoking Status: Never smoker Use of substances other than those prescribed or required for medical reasons: No Have you been hit, kicked, punched, or otherwise hurt by someone within the past year? If so, by whom?: No Advance Directives: No Advance Directives Information Provided: No Advance Directives on File: No Recently lost weight without trying: No service: No Current occupational status: retired [employer] Allergies Allergy/AdvReac Type Severity Reaction Status Date / Time gluten [GLUTEN] Allergy Unknown ABD PAIN Verified 10/14/20 14:19 Sulfa (Sulfonamide Allergy Unknown Rash Verified 10/14/20 14:19 Antibiotics) [SULFA(SULFONAMIDE ANTIBIOTICS)] mirtazapine AdvReac Unknown peripheral Verified 10/14/20 14:19 edema Home Medications Medication Instructions Recorded Confirmed Last Taken Type Trelegy Ellipta 1 puff PO DAILY 06/15/20 10/14/20 06/15/20 History atorvastatin 1 tab PO DAILY 06/15/20 10/14/20 06/15/20 History clopidogrel 1 tab PO DAILY 06/15/20 10/14/20 10/13/20 History estradiol 1 tab PO DAILY 06/15/20 10/14/20 06/15/20 History gabapentin 1 tab PO QID 06/15/20 10/14/20 06/15/20 History levothyroxine 1 tab PO DAILY 06/15/20 10/14/20 06/15/20 History lorazepam 1 tab PO QID PRN 06/15/20 10/14/20 06/15/20 History sertraline 1.5 tab PO DAILY 06/15/20 10/14/20 06/15/20 History sumatriptan succinate 1 tab PO Q2H PRN 06/15/20 10/14/20 Unknown History zolpidem 1 tab PO BEDTIME 06/15/20 10/14/20 06/14/20 History flu vacc 2020-21(66yr 0.5 ml IM DIRECTED 07/01/20 09/29/20 Unknown History up)-MF59C(PF) 60 mcg(15 mcgx4)/0.5 mL IM syringe furosemide 40 mg tablet 40 mg PO DAILY PRN tab 07/03/20 10/14/20 Unknown History mirtazapine 15 mg tablet 15 mg PO BEDTIME 09/23/20 10/14/20 Unknown History Exam Height,Weight and Vital Signs: Vital Signs Temp Pulse Resp BP Pulse Ox 10/21/20 10:57 96.9 F 62 18 135/65 96 Airway Mallampati Class: II TM Dist: >3cm Neck ROM: Full Heart: RRR Lungs: CTAB Assessment and Plan Assessment Anesthesia Assessment: Anesthesia Plan Discussed and Chart Reviewed Final Anesthetic Review NPO: Yes ASA Class: III Final Preanesthetic Review: No Changes in Pt Med Stat, Meds/Allgs Chart Reviewed, Consent Obtained/Reviewed and Anes Risks/Benef Reviewed Patient Risk: Intermediate Procedure Risk: Low Assessment/Block/Sedation in SS: Assess/Block/Sedation-SS Anesthetic Plan Anesthetic Plan: GA Disposition: Standard PACU
[2020-10-21] VITALS (11 sets, daily range): BP systolic 102–142; BP diastolic 39–72; PULSE 61–75; RESP 12–18; TEMP 36.1; O2SAT 91–97
--- NOTE | ~2020-10-21 | XR_ITS ---
EXAMINATION: XR CHEST CLINICAL INFORMATION: Right-sided lung biopsy. COMPARISON: CT chest 10/02/2020. TECHNIQUE: Frontal view of the chest was obtained. FINDINGS: The lungs are well expanded and clear of acute process. No pulmonary nodule or mass seen. The heart size and pulmonary vascularity is normal. No gross bony abnormality noted. XR/XR chest 1V IMPRESSION: Unremarkable chest exam.
[2020-10-21] MEDS: Lactated Ringers 1,000 ML 20 ML IVCONT (11:09)
--- NOTE | 2020-10-21 11:58 | MHC.SHP ---
Pre-Procedural Eval Section B Chief Complaint: pneumonia Allergies: Allergies Allergy/AdvReac Type Severity Reaction Status Date / Time gluten [GLUTEN] Allergy Unknown ABD PAIN Verified 10/14/20 14:19 Sulfa (Sulfonamide Allergy Unknown Rash Verified 10/14/20 14:19 Antibiotics) [SULFA(SULFONAMIDE ANTIBIOTICS)] mirtazapine AdvReac Unknown peripheral Verified 10/14/20 14:19 edema Plan I have reviewed the history and physical and performed a pertinent physical examination on my patient. No changes have occurred unless specified.
--- NOTE | 2020-10-22 09:55 | PM.OP ---
Brief Operative Note Date of Service: 10/21/20 Pre-op diagnosis: Pneumonitis Post-op diagnosis: same Procedure: Bronchoscopy with transbronchial biopsies and bronchial alveolar lavage Surgeon: Jose L Ford MD Anesthesia: GLMA Estimated blood loss (mL): 5 Pathology: other (Right upper lobe transbronchial biopsies) Condition: stable Disposition: same day
[2020-10-22 09:57] LABS: Lymphocytes Bronchial 4 %; Monocytes Bronchial 3 %; Neutrophils Bronchial 5 %; Other Bronchial 88 %; RBC Bronchial Washing 2 MM*3; WBC Bronchial Washing 32 MM*3
--- NOTE | 2020-10-22 13:23 | OP_ITS ---
SURGEON: Jose L Ford MD PREOPERATIVE DIAGNOSIS: Pneumonitis. POSTOPERATIVE DIAGNOSIS: Pneumonitis. PROCEDURE PERFORMED: ESTIMATED BLOOD LOSS: COMPLICATIONS: ANESTHESIA: LMA. ASSISTANTS: None. SPECIMENS: ASA CLASSIFICATION: 3. PROCEDURES: Bronchoscopy with transbronchial biopsies and bronchoalveolar lavage. DESCRIPTION OF PROCEDURE: After the patient was adequately sedated, the flexible digital bronchoscope was inserted over the LMA to the level of the larynx and vocal cords, and the larynx appeared to be normal. No evidence of any swelling. Vocal cords were moving symmetrically to the midline. After instilling additional lidocaine, the bronchoscope was navigated, past the vocal cords to the level of the trachea. Trachea was tortuous, but otherwise patent and without any significant malacia. Did have some mucus burden, which are mucoid in appearance and mild to moderate in amount. After instilling additional lidocaine, the bronchoscope was then navigated to the entire tracheobronchial tree, which was evaluated up to the subsegmental level. No endobronchial lesions or masses noted. She did have areas suggesting some areas of inflammation of the airways, but appeared to be more chronic. Also, did have some minimal amount of scant mucus primarily from the left upper lobe and also the right side. The bronchoscope was navigated to the right middle lobe, where BAL was done initially with 50 mL of normal saline, recovering back around 25. No significant mucus plugs appreciated. The patient did have some degree of malacia making the return difficult. The second BAL was done with 30 mL, returning back around 12 mL. No significant plugs were appreciated. The color was clear. The bronchoscope was navigated to the right upper lobe, where transbronchial biopsies were done. Four passes were done and 4 passes were collected and the specimens were placed on formalin. She did have some minimal bleeding. Iced saline used with good hemostasis. At the end of procedure, no evidence of any active bleeding. The bronchoscope was then removed. The total endoscopic time approximately 20 minutes. The patient tolerated the procedure well. Vital signs were stable. Postop chest x-ray was also stable. INTERPRETATION: 1. Transbronchial biopsies of the right upper lobe. 2. BAL from the right middle lobe. 3. Bronchial washings bilaterally. Jose L Ford MD MR/MODL / [id number]
== END 2020-10-21 15:46 | disposition home or self-care (01) ==
PROVIDERS: PCP Internal Medicine; Visit Provider Hospitalist
PROC: 0BJ08ZZ Inspection of Tracheobronchial Tree, Via Natural or Artificial Opening Endoscopic (ICD-10-PCS; CPT 31622; principal; 2020-10-21 12:00)
DX: J18.9 Pneumonia, unspecified organism (principal); R06.00 Dyspnea, unspecified; I11.0 Hypertensive heart disease with heart failure; I50.30 Unspecified diastolic (congestive) heart failure; J44.9 Chronic obstructive pulmonary disease, unspecified; R60.9 Edema, unspecified; G47.33 Obstructive sleep apnea (adult) (pediatric); K90.0 Celiac disease; Z99.89 Dependence on other enabling machines and devices; Z79.51 Long term (current) use of inhaled steroids; Z79.899 Other long term (current) drug therapy; Z79.890 Hormone replacement therapy; Z88.2 Allergy status to sulfonamides; Z88.8 Allergy status to other drugs, medicaments and biological substances; Z85.42 Personal history of malignant neoplasm of other parts of uterus
CPT/HCPCS: 31628; 31624; 71045; 87071; 87116; 87205; 88112; 88305; 89051; J0171; J2250; J3010

== ENCOUNTER 2020-10-23 15:38 | Outpatient (REF) | payer MEDICARE, SELFPAY ==
--- NOTE | ~2020-10-23 | MM_ITS ---
EXAMINATION: MM SCREENING DIGITAL BREAST TOMOSYNTHESIS, BILATERAL CLINICAL INFORMATION: Screening. Asymptomatic. The lifetime risk of breast cancer based on the Tyrer-Cuzick Model is 8.5%. COMPARISON: Mammography: March 29, 2019 and studies dating back to March 10, 2012 TECHNIQUE: Digital breast tomosynthesis is performed in both the craniocaudal and mediolateral oblique views along with computer-aided detection (CAD). Synthesized 2D images are generated from the tomosynthesis. FINDINGS: There are scattered areas of fibroglandular density (ACR BI-RADS breast composition Category b). There are no significant masses, abnormal calcifications, or other abnormalities. MM/MM tomosynthesis screening BI IMPRESSION: There are no significant changes from prior study. ASSESSMENT: BI-RADS 1: Negative RECOMMENDATION: Routine annual mammography screening. This patient's information was entered into a reminder system with a target due date for their next mammogram.
[2020-10-23 17:51] LABS: TSH reflex Free T4 4.82 uIU/mL (0.32-4.0)
== END 2020-10-23 15:39 | disposition home or self-care (01) ==
LOC: HO.MAMMO 15:38
PROVIDERS: PCP Internal Medicine; Visit Provider Internal Medicine
DX: Z12.31 Encounter for screening mammogram for malignant neoplasm of breast (principal); E03.9 Hypothyroidism, unspecified
CPT/HCPCS: 36415; 77063; 77067; 84439; 84443

== ENCOUNTER → 2020-10-28 14:20 | Outpatient (BNVA) | payer MEDICARE, SELFPAY | PROVIDERS: PCP Internal Medicine; Visit Provider Hospitalist | DX: R06.00 Dyspnea, unspecified (principal); J18.9 Pneumonia, unspecified organism; J45.40 Moderate persistent asthma, uncomplicated; G47.33 Obstructive sleep apnea (adult) (pediatric); Z99.89 Dependence on other enabling machines and devices; Z79.899 Other long term (current) drug therapy | CPT/HCPCS: 99212 ==

== ENCOUNTER → 2020-11-07 09:28 | Outpatient (REF) | payer MEDICARE, SELFPAY ==
--- NOTE | 2020-11-07 09:31 | CA_ITS ---
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 The visually estimated ejection fraction is between 65-70%. - Evidence suggests grade II (moderate) diastolic dysfunction. - No obvious valvular pathology seen on this study. - The right ventricular systolic pressure is 30 mmHg. The pulmonary artery systolic pressure is normal. Findings Left Ventricle Normal left ventricular cavity size. There is normal left ventricular wall thickness. The left ventricular systolic function is normal. The visually estimated ejection fraction is between 65-70%. There is no evidence of regional wall motion abnormalities. E/E prime ratio is >15, consistent with elevated filling pressures. Evidence suggests grade II (moderate) diastolic dysfunction. Right Ventricle Normal right ventricular cavity size and systolic function. Atria The left atrium is normal in size. The right atrium is normal in size. Aortic Valve There is a normal trileaflet aortic valve. There is no aortic valve stenosis. There is no aortic valve regurgitation. Mitral Valve The mitral valve appears normal. There is no mitral valve regurgitation. There is no mitral valve stenosis. Pulmonic Valve The pulmonic valve was not well visualized. Tricuspid Valve There is trace tricuspid valve regurgitation. The right ventricular systolic pressure is 30 mmHg. The pulmonary artery systolic pressure is normal. Great Vessels The aortic annulus, sinuses of valsalva, and asc aorta are normal in size. Venous The inferior vena cava is normal in size and collapses greater than 50% with inspiration. Pericardium/Pleural There is no evidence of pericardial effusion. Prior Study Comparison No significant change compared to prior study dated: 01/18/2020. Recommendations, Care & Conclusions No obvious valvular pathology seen on this study. Measurements 2D Linear Measurements IVSd: 1.03 0.6-0.9/0.6-1.0 cm LVIDd: 4.38 3.9-5.3/4.2-5.9 cm LVIDd Index: 2.21 2.4-3.2/2.2-3.1 cm/m2 LVIDs: 2.69 2.0-3.6 cm LVPWd: 0.91 0.7-1.1 cm Ao Root: 2.20 2.1-3.5 cm LA Diam: 3.70 2.7-3.8/3.0-4.0 cm LAIDs Index: 1.87 1.5-2.3 cm/m2 LV Mass: 175.27 67-162/88-224 g LV Mass Index: 88.52 43-95/49-115 g/m2 LVOT Diam: 1.80 3.0+(-)1.3 cm 2D Volumes LA Vol: 20.60 2D Systolic Function EF 4C: 75.60 >55% Mitral Valve MV Pk E: 1.18 MV PK A: 1.02 MV Decel Time: 204.00 E/A: 1.20 E'Lateral: 7.16 E'Medial: 5.80 E/E' Med: 20.30 E/E' Lat: 16.50 PHT: 60.00 MVA PHT: 3.67 Decel [facility]: 5.80 Aortic Valve AoV Pk Armando: 1.65 AoV Mn Armando: 1.17 AoV VTI: 0.40 AoV Pk Grad: 11.00 Aov Mn Grad: 6.00 NICOLE Cont.VTI: 1.82 LVOT LVOT Pk Armando: 1.20 LVOT Mn Armando: 0.75 LVOT VTI: 0.29 LVOT Pk Grad: 6.00 LVOT Mn Grad: 3.00 LVOT Diam: 1.80 LVOT Area: 2.54 Diastolic Function MV Pk E: 1.18 MV Pk A: 1.02 E/A: 1.20 E'Medial: 5.80 E/E' Med: 20.30 E' Laterial: 7.16 E/E' Lat: 16.50 Tricuspid Valve TR Pk Armando: 2.59 TR Pk Grad: 27.00 RA Press: 3.00 RVSP: 30.00 Great Vessels Aorta Ao Root-2D: 2.20 2.0-3.7 cm Ao Asc: 2.60 2.1-3.4 cm Updated in Other Vendor System with Status of Final Killian Pimentel MD electronically signed on 11/08/2020 1:25:22 PM with status of Final
== END ==
LOC: HO.CARD 09:28
PROVIDERS: Visit Provider Hospitalist
DX: I27.20 Pulmonary hypertension, unspecified (principal); R06.00 Dyspnea, unspecified; J18.9 Pneumonia, unspecified organism
CPT/HCPCS: 93306

== ENCOUNTER → 2020-11-19 09:46 | Outpatient (BNVA) | payer MEDICARE, SELFPAY | PROVIDERS: PCP Internal Medicine; Visit Provider Nurse Practitioner Family | DX: I50.33 Acute on chronic diastolic (congestive) heart failure (principal); I51.89 Other ill-defined heart diseases; J18.9 Pneumonia, unspecified organism; G90.3 Multi-system degeneration of the autonomic nervous system; R06.02 Shortness of breath | CPT/HCPCS: 99212 ==

== ENCOUNTER → 2020-11-26 11:09 | Outpatient (BNVA) | payer MEDICARE, SELFPAY | PROVIDERS: PCP Internal Medicine; Visit Provider Internal Medicine | DX: J45.40 Moderate persistent asthma, uncomplicated (principal); G47.33 Obstructive sleep apnea (adult) (pediatric); B37.0 Candidal stomatitis; Z99.89 Dependence on other enabling machines and devices; Z79.899 Other long term (current) drug therapy | CPT/HCPCS: 99212 ==

== ENCOUNTER 2020-12-14 08:36 | Emergency (ER) | payer MEDICARE, SELFPAY ==
--- NOTE | 2020-12-14 | ECG_ITS ---
Test Reason : CHEST PAIN Blood Pressure : / mmHG Vent. Rate : 069 BPM Atrial Rate : 069 BPM P-R Int : 182 ms QRS Dur : 078 ms QT Int : 396 ms P-R-T Axes : -02 016 033 degrees QTc Int : 424 ms Normal sinus rhythm Normal ECG When compared with ECG of 15-JUN-2020 19:43, No significant change was found Referred By: Generic ED Physician Electronically Signed By:Alex Joshua
--- NOTE | ~2020-12-14 | CT_ITS ---
EXAMINATION: CT ANGIOGRAM OF THE CHEST WITH AND WITHOUT CONTRAST (CT PULMONARY ANGIOGRAM FOR PE) CLINICAL INFORMATION: Reason for Exam PE? COMPARISON: None TECHNIQUE: Prior to contrast administration, noncontrast localization images were obtained. Subsequently, multidetector volumetric imaging was performed from the thoracic inlet to below the diaphragms following the administration of 80 mL Omnipaque 350 intravenous contrast. No contrast reaction reported Sagittal, coronal, and MIP oblique sagittal reformatted images were obtained on the CT workstation, uploaded to PACS, and reviewed. This CT examination was performed using dose optimization techniques as appropriate, variously including the following: *Automated exposure control *Adjustment of mA and/or kV according to patient size (this includes techniques or standardized protocols for targeted exams where dose is matched to indication/reason for exam; i.e. extremities or head) *Use of iterative reconstruction technique Total exam dose-length product 334.0 mGy-cm FINDINGS: QUALITY OF STUDY/CONTRAST BOLUS: Satisfactory. PULMONARY ARTERIES: No central or segmental pulmonary emboli. THORACIC AORTA: No aneurysm or dissection. LUNG: No focal consolidation, nodules or masses. PLEURA: No pleural effusion or pneumothorax. MEDIASTINUM: Normal heart size. No pericardial effusion. No hilar or mediastinal lymphadenopathy. No evidence of septal bowing or right heart strain. CHEST WALL/AXILLA: No axillary or internal mammary lymphadenopathy. OSSEOUS STRUCTURES: No acute or suspicious osseous abnormality. UPPER ABDOMEN: Unremarkable. No reflux of contrast into the hepatic veins to suggest elevated right heart pressures. CT/CT angio chest PE protocol IMPRESSION: No CT evidence of pulmonary thromboembolism. VTE: Negative.
--- NOTE | ~2020-12-14 | XR_ITS ---
EXAMINATION: XR RIBS, LEFT CLINICAL INFORMATION: Left rib pain COMPARISON: None TECHNIQUE: 3 views of the left ribs were obtained. FINDINGS: Visualized lungs are clear. No consolidation, pneumothorax, or pleural effusion. The cardiomediastinal silhouette and pulmonary vasculature are normal. Osseous structures are unremarkable. Ribs are intact. No fractures are identified. XR/XR ribs LT 2V IMPRESSION: Unremarkable examination.
--- NOTE | ~2020-12-14 | XR_ITS ---
EXAMINATION: XR CHEST CLINICAL INFORMATION: Chest pain COMPARISON: Chest x-ray 10/21/2020 TECHNIQUE: Frontal view of the chest was obtained. FINDINGS: Cardiac silhouette is normal in size. The lungs are well aerated. There is mild asymmetric elevation of the right hemidiaphragm. The lungs are adequately aerated. There is no lobar consolidation. No pleural effusion or pneumothorax. XR/XR chest 1V IMPRESSION: No acute pulmonary pathology.
[2020-12-14 08:38] VITALS: BP 135/61; PULSE 70; RESP 16; TEMP 36.6; O2SAT 95; BMI 34.3
[2020-12-14 09:16] VITALS: BP 129/59; PULSE 68; RESP 20; O2SAT 91
--- NOTE | 2020-12-14 09:25 | ED.GENADULT ---
HPI - General Adult General Chief complaint: General Medical Stated complaint: L SIDE CHEST PAIN MULTI COMPLAINTS Time Seen by Provider: 12/14/20 09:04 Source: patient Mode of arrival: ambulatory Limitations: no limitations History of Present Illness HPI narrative: Patient presents to ED for couple weeks of sore/raspy throat for couple of weeks. Patient states chronic shortness of breath since last year after being diagnosed with viral pneumonia night is, but never was positive for COVID-19. Patient now states having left lateral/posterior rib pain for 3 weeks. Patient denies any increased swelling of lower extremities. Patient states also fluid in both ears was given antibiotics. Presently patient feels fine. Patient denies any shortness of breath. Patient's main complaint is raspy sore throat and left rib pain that is worse on movement. Related Data Home Medications Medication Instructions Recorded Confirmed atorvastatin 1 tab PO DAILY 06/15/20 11/26/20 clopidogrel 1 tab PO DAILY 06/15/20 11/26/20 estradiol 1 tab PO DAILY 06/15/20 11/26/20 gabapentin 1 tab PO QID 06/15/20 11/26/20 levothyroxine 1 tab PO DAILY 06/15/20 11/26/20 lorazepam 1 tab PO QID PRN 06/15/20 11/26/20 sertraline 1.5 tab PO DAILY 06/15/20 11/26/20 sumatriptan succinate 1 tab PO Q2H PRN 06/15/20 11/26/20 flu vacc (65yr 0.5 ml IM DIRECTED 07/01/20 11/26/20 up)-MF59C(PF) 60 mcg(15 mcgx4)/0.5 mL IM syringe furosemide 40 mg tablet 40 mg PO DAILY PRN tab 07/03/20 11/26/20 mirtazapine 15 mg tablet 15 mg PO BEDTIME 09/23/20 11/26/20 albuterol sulfate 90 mcg/actuation 2 puff INHALATION Q6H PRN 11/26/20 11/26/20 aerosol inhaler clotrimazole 10 mg barry 10 mg PO 11/26/20 11/26/20 estradiol 0.1 mg/24 hr semiweekly TRANSDERMAL 11/26/20 11/26/20 transdermal patch Previous Rx's Medication Instructions Recorded amlodipine 10 mg tablet 10 mg PO QAM 90 Days #90 tab 06/16/20 omeprazole 20 mg PO DAILY #30 cap 06/18/20 labetalol 100 mg tablet 100 mg PO BID 90 Days #180 tab 06/24/20 hydralazine 25 mg tablet 25 mg PO .COMPLEX #360 tab 06/30/20 mometasone 200 mcg/actuation HFA 2 puff INHALATION BID 30 Days #13 g 10/28/20 aerosol inhaler fluconazole 100 mg tablet 100 mg PO DAILY #7 tab 11/18/20 compress.stocking,knee,reg,med #2 ea 11/19/20 nystatin 100,000 unit/mL oral 5 ml MUCOUS MEMBRANE QID #200 ml 11/25/20 suspension azithromycin 250 mg tablet See Rx Instructions PO .COMPLEX #6 12/08/20 tab dexamethasone 6 mg tablet 6 mg PO DAILY 7 Days #7 tab 12/08/20 montelukast 10 mg tablet 10 mg PO DAILY PRN 30 Days #30 tab 12/08/20 spironolactone 25 mg tablet 25 mg PO DAILY #90 tab 12/11/20 Allergies Allergy/AdvReac Type Severity Reaction Status Date / Time gluten [GLUTEN] Allergy Severe ABD PAIN Verified 11/26/20 11:21 Sulfa (Sulfonamide Allergy Severe Rash Verified 11/26/20 11:21 Antibiotics) [SULFA(SULFONAMIDE ANTIBIOTICS)] mirtazapine AdvReac Severe peripheral Verified 11/26/20 11:21 edema Review of Systems Review of Systems: Yes all other systems are reviewed and are negative Constitutional: Constitutional: Reports as per HPI and Reports no additional constitutional complaints Eyes: Eyes: Reports as per HPI and Reports no additional eye complaints ENT: Reports system reviewed and no additional complaints, except as documented, Reports as per HPI and Reports sore throat (Multiple weeks with raspy voice) Cardiovascular: Cardiovascular: Reports as per HPI, Reports no additional cardiovascular complaints, Reports chest pain (Posterior rib pain) and Reports dyspnea (Chronic, but none presently) Respiratory: Respiratory: Reports as per HPI, Reports no additional respiratory complaints and Reports dyspnea (Chronic, but none presently) Gastrointestinal: Gastrointestinal: Reports as per HPI and Reports no additional gastrointestinal complaints Genitourinary: Genitourinary: Reports no additional female genitourinary complaints and Reports as per HPI Musculoskeletal: Musculoskeletal: Reports no additional musculoskeletal complaints and Reports as per HPI Neurologic: Reports system reviewed and no additional complaints, except as documented and Reports as per HPI Psychiatric: Psychiatric: Reports no additional psychiatric complaints and Reports as per HPI [facility] Past Medical History Medical History Asthma Celiac disease Diastolic CHF Dyspnea History of concussion HTN (hypertension) Hyperlipemia Hypothyroid Hypoxemia requiring supplemental oxygen Lower extremity edema Mammogram normal Nonspecific interstitial pneumonitis Orthostatic hypotension dysautonomic syndrome DANIS on CPAP Peripheral neuropathy Pneumonitis Psychiatric disorder Pulmonary hypertension Shortness of breath Urinary incontinence Surgical History Endometrial adenocarcinoma History of colonoscopy History of total abdominal hysterectomy and bilateral salpingo-oophorectomy Family History Family History Father [place] cell cancer HTN (hypertension) CVD (cardiovascular disease) Mother Crohn disease Cancer Maternal Grandfather No problems noted. Maternal Grandmother No problems noted. Paternal Grandfather CVD (cardiovascular disease) Paternal Grandmother COPD (chronic obstructive pulmonary disease) Brother No problems noted. Sister No problems noted. Daughter No problems noted. Social History Social History Household Members: Spouse Alcohol intake: current Alcohol intake frequency: holidays/special occasions only Smoking Status: Never smoker Advance Directives: Yes Advance Directives Information Provided: Yes Advance Directives on File: No service: No Current occupational status: retired Physical Exam Vital Signs: Vital Signs: Last Vital Signs Temp 97.9 F 12/14/20 08:38 Pulse 65 12/14/20 12:17 Resp 16 12/14/20 12:17 BP 158/73 H 12/14/20 12:17 Pulse Ox 95 12/14/20 12:18 Body Mass Index 34.3 Const: Other: Patient reading a book General: cooperative, healthy appearing, comfortable, no acute distress, well developed, alert, awake and Physically active Orientation/consciousness: patient oriented x3 HENMT: Head: Yes normal to inspection, Yes No palpable skull fracture present, Yes normocephalic, Yes atraumatic and No abrasion Eyes: General: appearance normal, both eyes and all related structures Neck: Neck: Yes normal visual inspection, Yes full ROM, Yes no lymphadenopathy, Yes no meningeal signs, Yes trachea midline, Yes supple and No tender Chest: Other: Positive for lateral/posterior chest wall tenderness Chest palpation & inspection: normal inspection of the chest Resp: Effort & Inspection: normal respiratory effort and able to speak in complete sentences Auscultation: clear to auscultation bilaterally Cardio: Jugular venous distension: no JVD Heart sounds: S1 normal heart sound present and S2 normal heart sound present GI: Inspection: Yes normal to inspection Palpation (GI): Soft to palpation, not firm, nontender and no guarding : General: No CVA tenderness and Yes no CVA tenderness Back/Spine/Pelvis: Back: no CVA tenderness, No CVA tenderness and No back tenderness Skin: General skin exam: no rashes or lesions noted and elasticity normal Neuro: General: patient oriented x3, gait normal, no meningeal signs and CN's II-XI intact bilaterally Cranial nerves: Yes CN's II-XII intact bilaterally Extrem: Other: Lower extremities positive for chronic +1 pitting edema. Negative for calf tenderness or redness. Psych: Appearance: grossly normal, well kempt and not disheveled Course Course Course Narrative: Will do COVID swab and strep test. Was sent for chest x-ray patient of a cardiac and pulmonary evaluation. Presently lungs clear. Presently patient is not any distress. Patient is asymptomatic. Probably rule on PE Reevaluation(s) Reevaluation #1: Chest x-ray negative for pneumonia. Troponin negative. EKG negative for STEMI. Pending COVID and strep test. Negative elevated white blood cell count. We will forego D-dimer and do chest CT to rule out any PE. BNP negative. Bedside patient reading book comfortably in bed. Reevaluation #2: Chest CT came back negative for PE. Patient does not want to wait for 2nd troponin. Patient states left rib pain is muscular & is worse on movement. Patient states having this pain for the past 2 weeks. Patient will follow-up with her PCP and vp [employer] partnerships this week. Patient states having this left-sided rib chest pain for 2 weeks. Patient states he has had multiple cardiac catheterization that were clean. Patient is a good historian will be discharged. Patient told to follow up with ENT for laryngitis. Patient's COVID swab came back negative. Patient's strep came back negative. Medical Decision Making MDM Narrative Medical decision making narrative: Laryngitis. Atypical chest pain Lab Data Result diagrams: 12/14/20 10:05 12/14/20 10:05 Labs: Lab Results 12/14/20 12/14/20 12/14/20 Range/Units 10:05 10:05 10:05 WBC 7.5 (4.8-10.8) X10*3/uL RBC 4.64 (4.20-5.50) X10*6/uL Hgb 13.7 (12.0-16.0) g/dl Hct 41.8 (37-47) % MCV 90.1 (80-98) fL MCH 29.5 (27.0-33.0) pg MCHC 32.8 (31.0-35.0) g/dl RDW 14.4 (11.0-16.0) % Plt Count 280 D (160-400) X10*3/uL MPV 10.2 (9.4-12.3) fL Immature Gran % (Auto) 1.2 H (0.0-0.4) % Neut % (Auto) 64.1 (45-73) % Lymph % (Auto) 17.9 L (20-40) % [place] % (Auto) 11.5 H (2-11) % Eos % (Auto) 4.4 H (0-4) % Baso % (Auto) 0.9 (0-2) % Lymph # (Auto) 1.4 (1.2-4.9) X10*3/uL [place] # (Auto) 0.9 (0.1-1.2) X10*3/uL Eos # (Auto) 0.3 (0.0-0.4) X10*3/uL Baso # (Auto) 0.1 (0.0-0.2) X10*3/uL Abs Immat Gran (auto) 0.09 H (0.00-0.03) X10*3/uL Absolute Neuts (auto) 4.8 (2.0-8.3) X10*3/uL Absolute Nucleated RBC 0.000 (0.0-0.012) X10*3/uL Nucleated RBC % (auto) 0.0 (0.0-0.2) /100WBC PT 11.4 (10.8-13.0) SEC INR 1.0 (0.9-1.1) APTT 38.0 (24.1-38.0) SEC Sodium 139 (135-145) mmol/L Potassium 3.9 (3.3-5.1) mmol/L Chloride 102 (96-108) mmol/L Carbon Dioxide 26 (22-29) mmol/L Anion Gap 15 (12-20) BUN 34 H (9-16) mg/dL Creatinine 0.90 (0.5-1.4) mg/dL Estim Creat Clear Calc 64.3 Estimated GFR > 60 Random Glucose 105 (60-115) mg/dL Calcium 9.3 (8.4-10.2) mg/dL Total Bilirubin 0.3 (0.0-1.0) mg/dL AST 35 H (5-31) U/L ALT 52 H (0-31) U/L Alkaline Phosphatase 97 (39-117) U/L Troponin I High Sens (<3.5-17.0) ng/L B-Natriuretic Peptide (<100) pg/mL Total Protein 6.9 (6.5-8.0) g/dL Albumin 4.2 (3.5-5.0) g/dL Coronavirus (PCR) (Negative) Influenza Type A (PCR) (Negative) Influenza Type B (PCR) (Negative) RSV RNA Qual (PCR) (Negative) S. pyogenes GrpA RICO (Negative) 12/14/20 12/14/20 12/14/20 Range/Units 10:05 10:51 10:52 WBC (4.8-10.8) X10*3/uL RBC (4.20-5.50) X10*6/uL Hgb (12.0-16.0) g/dl Hct (37-47) % MCV (80-98) fL MCH (27.0-33.0) pg MCHC (31.0-35.0) g/dl RDW (11.0-16.0) % Plt Count (160-400) X10*3/uL MPV (9.4-12.3) fL Immature Gran % (Auto) (0.0-0.4) % Neut % (Auto) (45-73) % Lymph % (Auto) (20-40) % [place] % (Auto) (2-11) % Eos % (Auto) (0-4) % Baso % (Auto) (0-2) % Lymph # (Auto) (1.2-4.9) X10*3/uL [place] # (Auto) (0.1-1.2) X10*3/uL Eos # (Auto) (0.0-0.4) X10*3/uL Baso # (Auto) (0.0-0.2) X10*3/uL Abs Immat Gran (auto) (0.00-0.03) X10*3/uL Absolute Neuts (auto) (2.0-8.3) X10*3/uL Absolute Nucleated RBC (0.0-0.012) X10*3/uL Nucleated RBC % (auto) (0.0-0.2) /100WBC PT (10.8-13.0) SEC INR (0.9-1.1) APTT (24.1-38.0) SEC Sodium (135-145) mmol/L Potassium (3.3-5.1) mmol/L Chloride (96-108) mmol/L Carbon Dioxide (22-29) mmol/L Anion Gap (12-20) BUN (9-16) mg/dL Creatinine (0.5-1.4) mg/dL Estim Creat Clear Calc Estimated GFR Random Glucose (60-115) mg/dL Calcium (8.4-10.2) mg/dL Total Bilirubin (0.0-1.0) mg/dL AST (5-31) U/L ALT (0-31) U/L Alkaline Phosphatase (39-117) U/L Troponin I High Sens 3.6 (<3.5-17.0) ng/L B-Natriuretic Peptide 24 (<100) pg/mL Total Protein (6.5-8.0) g/dL Albumin (3.5-5.0) g/dL Coronavirus (PCR) NEGATIVE (Negative) Influenza Type A (PCR) NEGATIVE (Negative) Influenza Type B (PCR) NEGATIVE (Negative) RSV RNA Qual (PCR) NEGATIVE (Negative) S. pyogenes GrpA RICO Negative (Negative) ECG Data Interpretation: Normal sinus rhythm. Normal EKG. Ventricular rate 69. MI interval 182. Cures duration 78. QTC 424. Negative STEMI. Discharge Plan Discharge Clinical Impression: Laryngitis, Chest pain, atypical Patient Disposition: Home, Self-Care Instructions: Chest Pain (ED), Laryngitis (ED), Chest Wall Pain (ED) Additional Instructions: Return to the ED for any fever, chills, severe chest pain, shortness of breath on exertion, chest pain on inspiration, coughing up blood, calf pain, swelling of lower extremity, dizziness, headache, nausea, vomiting, any other concerning symptoms. If strep throat test came back negative. EKG was normal. Troponin was negative for Heart attack. Chest CT are negative for blood clot and or pneumonia. Your BNP came back normal. Your kidney function were normal. Please follow-up with your PCP and vp [employer]. Prescriptions: No Action amlodipine 10 mg tablet 10 mg PO QAM 90 Days Qty: 90 RF: 3 labetalol 100 mg tablet 100 mg PO BID 90 Days Qty: 180 RF: 1 hydralazine 25 mg tablet 25 mg PO .COMPLEX Qty: 360 RF: 1 fluconazole 100 mg tablet 100 mg PO DAILY Qty: 7 RF: 0 nystatin 100,000 unit/mL suspension 5 ml mucous membrane QID Qty: 200 RF: 0 dexamethasone [Decadron] 6 mg tablet 6 mg PO DAILY 7 Days Qty: 7 RF: 0 spironolactone 25 mg tablet 25 mg PO DAILY Qty: 90 RF: 1 gabapentin 600 mg tablet 1 tab PO QID RF: 0 atorvastatin 10 mg tablet 1 tab PO DAILY RF: 0 sumatriptan succinate 100 mg tablet 1 tab PO Q2H PRN (Reason: migraine) RF: 0 sertraline 100 mg tablet 1.5 tab PO DAILY RF: 0 clopidogrel 75 mg tablet 1 tab PO DAILY RF: 0 levothyroxine 75 mcg tablet 1 tab PO DAILY RF: 0 estradiol 2 mg tablet 1 tab PO DAILY RF: 0 lorazepam 1 mg tablet 1 tab PO QID PRN (Reason: anxiety) RF: 0 omeprazole 20 mg capsule,delayed release(DR/EC) 20 mg PO DAILY Qty: 30 RF: 0 azithromycin 250 mg tablet See Rx Instructions PO .COMPLEX Qty: 6 RF: 0 montelukast [Singulair] 10 mg tablet 10 mg PO DAILY PRN (Reason: allergy symptoms) 30 Days Qty: 30 RF: 1 (DME) compress.stocking,knee,reg,med Misc See Rx Instructions .ROUTE .MEDSUPPLY Qty: 2 RF: 0 clotrimazole 10 mg barry 10 mg PO RF: 0 estradiol 0.1 mg/24 hr patch semiweekly transdermal RF: 0 albuterol sulfate [ProAir HFA] 90 mcg/actuation HFA aerosol inhaler 2 puff inhalation Q6H PRNRF: 0 furosemide 40 mg tablet 40 mg PO DAILY PRN (Reason: Weight Gain) RF: 0 Fluad Quad (65y up)(PF) 60 mcg (15 mcg x 4)/0.5 mL syringe 0.5 ml IM DIRECTED RF: 0 mirtazapine 15 mg tablet 15 mg PO BEDTIME RF: 0 Asmanex HFA 200 mcg/actuation HFA aerosol inhaler 2 puff inhalation BID 30 Days Qty: 13 RF: 11 Referrals: Faraz Lemus [Physician] - 2 days (Pharyngitis) Interventions: ED Discharge Assessment Last Done: 12/14/20 13:42 Discharge Date/Time: 12/14/20 13:43 Print Language: Uzbek
[2020-12-14 10:10] LABS: MANUAL DIFF FLAG NO
[2020-12-14 10:11] LABS: Basophils Absolute Auto 0.1 X10*3/uL (0.0-0.2); Basophils Percent Auto 0.9 % (0-2); Eosinophils Absolute Auto 0.3 X10*3/uL (0.0-0.4); Eosinophils Percent Auto 4.4 % (0-4); Hematocrit 41.8 % (37-47); Hemoglobin 13.7 g/dl (12.0-16.0); Imm Gran Abs Auto 0.09 X10*3/uL (0.00-0.03); Imm Gran Pct Auto 1.2 % (0.0-0.4); Lymphocytes Absolute Auto 1.4 X10*3/uL (1.2-4.9); Lymphocytes Percent Auto 17.9 % (20-40); Mean Corpuscular HGB Conc 32.8 g/dl (31.0-35.0); Mean Corpuscular Hemoglobin 29.5 pg (27.0-33.0); Mean Corpuscular Volume 90.1 fL (80-98); Mean Platelet Volume 10.2 fL (9.4-12.3); Monocytes Absolute Auto 0.9 X10*3/uL (0.1-1.2); Monocytes Percent Auto 11.5 % (2-11); Neutrophils Absolute Auto 4.8 X10*3/uL (2.0-8.3); Neutrophils Percent Auto 64.1 % (45-73); Platelet Count 280 X10*3/uL (160-400); Red Blood Count 4.64 X10*6/uL (4.20-5.50); Red Cell Distribution Width 14.4 % (11.0-16.0); White Blood Count 7.5 X10*3/uL (4.8-10.8)
[2020-12-14 10:20] LABS: Prothrombin Time 11.4 SEC (10.8-13.0)
[2020-12-14] MEDS: 0.9 % Sodium Chloride 1,000 ML 999 ML IV (10:36)
[2020-12-14 10:41] LABS: Alanine Aminotransferase 52 U/L (0-31); Albumin Level 4.2 g/dL (3.5-5.0); Alkaline Phosphatase 97 U/L (39-117); Anion Gap 15 (12-20); Aspartate Amino Transferase 35 U/L (5-31); Bilirubin Total 0.3 mg/dL (0.0-1.0); Blood Urea Nitrogen 34 mg/dL (9-16); Calcium 9.3 mg/dL (8.4-10.2); Carbon Dioxide 26 mmol/L (22-29); Chloride 102 mmol/L (96-108); Creatinine Clr Calc Pharmacy 64.3; Estimated Glomerular Filt Rate > 60; Glucose Random 105 mg/dL (60-115); Potassium 3.9 mmol/L (3.3-5.1); Sodium 139 mmol/L (135-145); Total Protein 6.9 g/dL (6.5-8.0)
[2020-12-14 10:47] LABS: B Type Natriuretic Peptide 24 pg/mL (<100); Troponin-I High Sensitivity 3.6 ng/L (<3.5-17.0)
[2020-12-14 11:12] LABS: IDNOW Serial# 9DD0AD1C; Strep A Nucleic Acid Negative (Negative)
[2020-12-14] MEDS: iohexoL 350 MG/ML 100 ML INFUS..BTL 65 ML IV (11:36)
[2020-12-14 11:42] LABS: Influenza A PCR NEGATIVE (Negative); Influenza B PCR NEGATIVE (Negative); Resp Syncy Virus RNA Qual PCR NEGATIVE (Negative); SARS COV2 PCR INHOUSE NEGATIVE (Negative)
[2020-12-14 12:17] VITALS: BP 158/73; PULSE 65; RESP 16
[2020-12-14 12:18] VITALS: O2SAT 95
== END 2020-12-14 13:43 | disposition home or self-care (01) ==
PROVIDERS: Physician Assistant; Emergency Provider Emergency Medicine; PCP Internal Medicine
DX: J04.0 Acute laryngitis (principal); R07.89 Other chest pain; Z20.822 Contact with and (suspected) exposure to COVID-19; Z79.899 Other long term (current) drug therapy
CPT/HCPCS: 0241U; 36415; 71045; 71100; 71275; 80053; 83880; 84484; 85025; 85610; 85730; 87651; 93005; 96360; 99284; Q9967

== ENCOUNTER → 2020-12-18 14:31 | Outpatient (BNVA) | payer MEDICARE, SELFPAY | PROVIDERS: PCP Internal Medicine; Visit Provider Hospitalist | DX: J45.40 Moderate persistent asthma, uncomplicated (principal); G47.33 Obstructive sleep apnea (adult) (pediatric); J18.9 Pneumonia, unspecified organism; Z99.89 Dependence on other enabling machines and devices | CPT/HCPCS: 99212 ==

== ENCOUNTER → 2021-01-01 13:04 | Outpatient (BNVA) | payer MEDICARE, SELFPAY | PROVIDERS: PCP Internal Medicine; Referring Provider Internal Medicine; Visit Provider Internal Medicine Cardiovascular Disease | DX: I50.33 Acute on chronic diastolic (congestive) heart failure (principal); G90.3 Multi-system degeneration of the autonomic nervous system | CPT/HCPCS: 99212 ==

== ENCOUNTER 2021-01-05 11:42 | Outpatient (REF) | payer MEDICARE, SELFPAY ==
--- NOTE | ~2021-01-05 | US_ITS ---
EXAMINATION: US RETROPERITONEAL COMPLETE (RENAL) CLINICAL INFORMATION: Abdominal pain. COMPARISON: CT abdomen and pelvis 03/02/2018. TECHNIQUE: Real-time imaging of the kidneys and bladder. FINDINGS: RIGHT KIDNEY: 11.5 x 4.3 x 5.4 cm (SAG x AP x TRV). The kidney is normal in size, contour, and echogenicity. Renal cortical thickness is normal. No calculi or focal parenchymal lesions. No hydronephrosis. LEFT KIDNEY: 9.7 x 4.5 x 5.4 cm (SAG x AP x TRV). The kidney is normal in size, contour, and echogenicity. Renal cortical thickness is normal. No calculi or focal parenchymal lesions. No hydronephrosis. BLADDER: Well distended and normal. Bilateral ureteral jets are demonstrated. Prevoid bladder volume is 263 mL. Postvoid bladder volume is 20 mL. US/US retroperitoneal comp IMPRESSION: Unremarkable renal and bladder ultrasound.
== END 2021-01-05 11:43 | disposition home or self-care (01) ==
LOC: HO.US 11:42
PROVIDERS: PCP Internal Medicine; Visit Provider Physician Assistant
DX: R10.84 Generalized abdominal pain (principal)
CPT/HCPCS: 76770

== ENCOUNTER 2021-01-26 15:02 | Outpatient (REF) | payer MEDICARE, SELFPAY ==
--- NOTE | ~2021-01-26 | XR_ITS ---
EXAMINATION: XR CHEST CLINICAL INFORMATION: Shortness of breath COMPARISON: 12/14/2020 TECHNIQUE: 2 views of the chest were obtained. FINDINGS: The central vessels are prominent, similar to previous study, possibly representing central vascular congestion with no overt edema. No focal consolidation or pleural effusion. Stable cardiomediastinal silhouette. XR/XR chest 2V IMPRESSION: Possible mild central vascular congestion, similar to previous. No overt edema.
[2021-01-26 16:22] LABS: Alanine Aminotransferase 39 U/L (0-31); Albumin Level 4.3 g/dL (3.5-5.0); Alkaline Phosphatase 108 U/L (39-117); Anion Gap 13 (12-20); Aspartate Amino Transferase 50 U/L (5-31); Bilirubin Total 0.3 mg/dL (0.0-1.0); Blood Urea Nitrogen 24 mg/dL (9-16); Calcium 9.4 mg/dL (8.4-10.2); Carbon Dioxide 27 mmol/L (22-29); Chloride 105 mmol/L (96-108); Estimated Glomerular Filt Rate 53; Glucose Random 108 mg/dL (60-115); Potassium 4.2 mmol/L (3.3-5.1); Sodium 141 mmol/L (135-145); Total Protein 6.9 g/dL (6.5-8.0)
[2021-01-26 16:28] LABS: B Type Natriuretic Peptide 95 pg/mL (<100)
== END 2021-01-26 15:03 | disposition home or self-care (01) ==
LOC: HO.LAB 15:02
PROVIDERS: Absent Provider Internal Medicine; PCP Internal Medicine; Visit Provider Hospitalist
DX: I50.33 Acute on chronic diastolic (congestive) heart failure (principal); R06.02 Shortness of breath
CPT/HCPCS: 36415; 71046; 80053; 83880

== ENCOUNTER → 2021-02-09 08:28 | Outpatient (BNVA) | payer MEDICARE, SELFPAY | PROVIDERS: PCP Internal Medicine; Referring Provider Internal Medicine; Visit Provider Internal Medicine Cardiovascular Disease | DX: I50.33 Acute on chronic diastolic (congestive) heart failure (principal); G90.3 Multi-system degeneration of the autonomic nervous system; R06.02 Shortness of breath | CPT/HCPCS: 99212 ==

== ENCOUNTER → 2021-03-17 10:42 | Outpatient (BNVA) | payer MEDICARE, SELFPAY | PROVIDERS: PCP Internal Medicine; Visit Provider Hospitalist | DX: J45.40 Moderate persistent asthma, uncomplicated (principal); J18.9 Pneumonia, unspecified organism; G47.33 Obstructive sleep apnea (adult) (pediatric); Z99.89 Dependence on other enabling machines and devices | CPT/HCPCS: 99212 ==

== ENCOUNTER 2021-04-02 15:32 | Outpatient (REF) | payer MEDICARE, SELFPAY ==
--- NOTE | 2021-04-02 17:11 | PFT_ITS ---
Forced vital capacity moderately decreased. FEV1 is slightly decreased. [id number] and MVV are normal. Post bronchodilator therapy, there is no significant change. Total lung capacity and residual volume are slightly decreased. Diffusion capacity is slightly decreased. CONCLUSION: A mild degree of restrictive pulmonary disorder. No significant obstructive airway disorder and no response to bronchodilator therapy. MD DAVID Vasquez/IMELDA / [phone]
== END 2021-04-02 15:33 | disposition home or self-care (01) ==
LOC: HO.RESP 15:32
PROVIDERS: PCP Internal Medicine; Visit Provider Hospitalist
DX: J44.9 Chronic obstructive pulmonary disease, unspecified (principal); J18.9 Pneumonia, unspecified organism
CPT/HCPCS: 94060; 94727; 94729

== ENCOUNTER → 2021-04-07 08:30 | Outpatient (BNVA) | payer MEDICARE, SELFPAY | PROVIDERS: PCP Internal Medicine; Visit Provider Nurse Practitioner | CPT/HCPCS: Q3014 ==

== ENCOUNTER 2021-04-15 12:16 | Day surgery (SDC) | payer MEDICARE, SELFPAY ==
[2021-04-15 12:53] VITALS: BMI 32.9
[2021-04-15 12:55] VITALS: BP 143/43; PULSE 63; RESP 16; TEMP 36.4; O2SAT 94
--- NOTE | 2021-04-15 13:28 | MHC.SHP ---
Pre-Procedural Eval Section A Date of Service: 04/15/21 The patient is an INPATIENT: No The History & Physical has been completed within 30 days and I have reviewed it.: Yes Section B Chief Complaint: dysphgia Allergies: Allergies Allergy/AdvReac Type Severity Reaction Status Date / Time gluten [GLUTEN] Allergy Severe ABD PAIN Verified 04/15/21 12:47 Sulfa (Sulfonamide Allergy Severe Rash Verified 04/15/21 12:47 Antibiotics) [SULFA(SULFONAMIDE ANTIBIOTICS)] mirtazapine AdvReac Severe peripheral Verified 04/15/21 12:47 edema Plan Diagnosis/Plan: Unchanged I have reviewed the history and physical and performed a pertinent physical examination on my patient. No changes have occurred unless specified.
--- NOTE | 2021-04-15 13:29 | P.OP_ITS ---
Operative Note Operative Note Date of Service: 04/15/21 Narrative: Procedure Description: EGD FLEXIBLE TRANSORAL UPPER GASTROINTESTINAL ENDOSCOPY UPPER ENDOSCOPY Consent: Indications for the procedure and potential complications of bleeding, perforation, reaction to medications and missed diagnosis were discussed with the patient and informed consent was obtained. Instrument: Olympus GIF H 190 J mid size upper endoscope Monitoring: Vital signs and clinical assessment, continuous EKG monitoring, Pulse oximetry, Carbon Dioxide monitoring and blood pressure monitoring were done throughout the procedure. Procedure: The patient was placed in the left lateral decubitis position and pre-procedure medications were administered and a bite block was placed. The endoscope was inserted into the mouth and advanced under direct vision to the third part of duodenum. A careful inspection was made as the upper endoscope was withdrawn including a retroflexed examination of the proximal stomach; Findings and interventions are described below. Findings: Larynx:normal Esophagus: GE junction at 33 cm, diaphragm hiatus at 33 cm, non obstructive schatzki ring noted. Balloon dilation to 20 mm doen at UES and LES. Mild bruising noted in UES, no tear at LES. Bx taken from distal and proxiaml esophagus to r/o EoE. Tertiary contractions of esophagus noted. Stomach: Patchy gastric erythema with scarring and atrophy. Biopsies were obt ained. Grade 2 flap valve on retroflexed examination of the cardia. Duodenum: Normal bulb and descending duodenum, bx taken Intervention: Biopsies as noted above, balloon dilation Impression/Findings: atrophic gastritis schatzki ring PLAN: Optimize PPI therapy, consider high dose BID omeprazole 40 mg for 3 months and then titrate down, if sx persist then manometry studies.
--- NOTE | 2021-04-15 13:29 | PM.OP ---
Brief Operative Note Date of Service: 04/15/21 Pre-op diagnosis: dysphagia Post-op diagnosis: same Procedure: see op note Surgeon: Mandi Shields MD Anesthesia: MAC Was an Alteration Workroom Supervisor used for this Procedure?: No Estimated blood loss (mL): 0 Condition: stable Disposition: PACU
--- NOTE | 2021-04-15 13:40 | HO.ANESPROP2 ---
[facility] Active Problems Active Problems: All Active Problems (Updated 04/07/21 @ 09:05 by ERROL Whipple) Esophageal dysmotility (Acute) GERD (gastroesophageal reflux disease) (Acute) Dysphagia (Acute) Vocal cord dysfunction (Acute) Asthma-COPD overlap syndrome (Acute) Weight gain (Acute) Edema (Acute) Shortness of breath (Acute) Allergic rhinitis (Acute) Bronchitis (Acute) Urinary incontinence (Acute) Asthma (Acute) Hypothyroid (Acute) Diastolic dysfunction (Acute) Suspected COVID-19 virus infection (Acute) SOB (shortness of breath) on exertion (Acute) Thrush (Acute) Irritable bowel syndrome with diarrhea (Acute) Colon cancer screening (Acute) Pre-employment health screening examination (Acute) Dyspnea (Acute) Diastolic CHF (Acute) Pneumonitis (Acute) Mammogram normal (Acute) DANIS on CPAP (Acute) Orthostatic hypotension dysautonomic syndrome (Acute) Celiac disease (Acute) Past Medical History Medical History (Updated 04/07/21 @ 09:05 by ERROL Whipple) Asthma Asthma-COPD overlap syndrome Celiac disease Diastolic CHF Dysphagia Dyspnea Edema History of concussion HTN (hypertension) Hyperlipemia Hypothyroid Hypoxemia requiring supplemental oxygen Lower extremity edema Mammogram normal Nonspecific interstitial pneumonitis Orthostatic hypotension dysautonomic syndrome DANIS on CPAP Peripheral neuropathy Pneumonitis Psychiatric disorder Pulmonary hypertension Shortness of breath Urinary incontinence Vocal cord dysfunction Weight gain Family History Family History Father Perry cell cancer HTN (hypertension) CVD (cardiovascular disease) Mother Crohn disease Cancer Maternal Grandfather No problems noted. Maternal Grandmother No problems noted. Paternal Grandfather CVD (cardiovascular disease) Paternal Grandmother COPD (chronic obstructive pulmonary disease) Brother No problems noted. Sister No problems noted. Daughter No problems noted. Family history of problems with anesthesia: No Surgical History Surgical History (Updated 04/07/21 @ 08:32 by YOEL Hernandez) Endometrial adenocarcinoma History of colonoscopy History of total abdominal hysterectomy and bilateral salpingo-oophorectomy Hx of esophagogastroduodenoscopy History of Problems with Anesthesia: No Social History Social History Household Members: Spouse Housing: House Are you a primary healthcare management to a significant other at home: No Do you presently have visiting nurse or other home services: No Alcohol intake: current Alcohol intake frequency: holidays/special occasions only Patient Tobacco Use Status: Former Tobacco user Quit Date: 1989 Tobacco use type: Cigarette Years Smoked: 2 Smoked in Last 30 Days: No e-Cigarette/Vaping Use: Never Used Second Hand Smoke Exposure: No Use of substances other than those prescribed or required for medical reasons: No Are you DNR?: No Advance Directives: No Advance Directives Information Provided: Yes service: No Current occupational status: retired Meds Allergies Allergy/AdvReac Type Severity Reaction Status Date / Time gluten [GLUTEN] Allergy Severe ABD PAIN Verified 04/15/21 12:47 Sulfa (Sulfonamide Allergy Severe Rash Verified 04/15/21 12:47 Antibiotics) [SULFA(SULFONAMIDE ANTIBIOTICS)] mirtazapine AdvReac Severe peripheral Verified 04/15/21 12:47 edema Active Medications: Current Medications Generic Name Dose Route Start Last Admin Trade Name Freq PRN Reason Stop Dose Admin Lactated Ringer's 1,000 mls @ 50 mls/hr 04/15/21 13:45 Lr IVCONT .Q20H [facility] Home Medications Medication Instructions Recorded Confirmed Last Taken Type gabapentin 600 mg tablet 1 tab PO QID 06/15/20 02/09/21 06/15/20 History levothyroxine 75 mcg tablet 1 tab PO DAILY 06/15/20 02/09/21 06/15/20 History lorazepam 1 mg tablet 1 tab PO QID PRN 06/15/20 02/09/21 06/15/20 History sertraline 100 mg tablet 1.5 tab PO DAILY 06/15/20 02/09/21 06/15/20 History sumatriptan succinate 100 mg tablet 1 tab PO Q2H PRN 06/15/20 02/09/21 Unknown History flu vacc 2020-21(66yr 0.5 ml IM DIRECTED 07/01/20 02/09/21 Unknown History up)-MF59C(PF) 60 mcg(15 mcgx4)/0.5 mL IM syringe albuterol sulfate 90 mcg/actuation 2 puff INHALATION Q6H PRN 11/26/20 02/09/21 Unknown History aerosol inhaler (ProAir HFA) clotrimazole 10 mg barry 10 mg PO 11/26/20 02/09/21 Unknown History estradiol 0.1 mg/24 hr semiweekly TRANSDERMAL 11/26/20 02/09/21 Unknown History transdermal patch ondansetron HCl 4 mg tablet 400f8 mg PO DAILY PRN 12/18/20 02/09/21 Unknown History oxybutynin chloride 5 mg tablet 5 mg PO BEDTIME 01/01/21 02/09/21 Unknown History furosemide 40 mg tablet 40 mg PO DAILY 04/15/21 Unknown History Exam Exam Date and Time: April 15, 2021 1340 Height,Weight and Vital Signs: Height 5 ft 4 in Weight 87.09 kg Last Vital Signs Temp 97.6 F 04/15/21 12:55 Pulse 63 04/15/21 12:55 Resp 16 04/15/21 12:55 BP 143/43 H 04/15/21 12:55 Pulse Ox 94 04/15/21 12:55 Airway Mallampati Class: III TM Dist: >3cm Neck ROM: Full Heart: rrr Lungs: cta Assessment and Plan Assessment Anesthesia Assessment: Anesthesia Plan Discussed and Chart Reviewed Final Anesthetic Review Family History of Problems with Anesthesia: No History of Problems with Anesthesia: No NPO: Yes ASA Class: III (Tooth implant top to the right) Final Preanesthetic Review: No Changes in Pt Med Stat, Meds/Allgs Chart Reviewed and Consent Obtained/Reviewed Patient Risk: Intermediate Procedure Risk: Intermediate Anesthetic Plan Anesthetic Plan: MAC: Disposition: Standard PACU
[2021-04-15 14:18] VITALS: BP 137/60; PULSE 59; RESP 16; TEMP 36.1; O2SAT 94
[2021-04-15 14:35] VITALS: BP 129/59; PULSE 62; RESP 18; TEMP 525; TEMP 977; O2SAT 95
== END 2021-04-15 15:14 | disposition home or self-care (01) ==
PROVIDERS: PCP Internal Medicine; Visit Provider Internal Medicine Gastroenterology
PROC: 0DJ08ZZ Inspection of Upper Intestinal Tract, Via Natural or Artificial Opening Endoscopic (ICD-10-PCS; CPT 43235; principal; 2021-04-15 13:30)
DX: K22.2 Esophageal obstruction (principal); K22.4 Dyskinesia of esophagus; K29.50 Unspecified chronic gastritis without bleeding; K31.7 Polyp of stomach and duodenum; K44.9 Diaphragmatic hernia without obstruction or gangrene; K21.9 Gastro-esophageal reflux disease without esophagitis; K90.0 Celiac disease; K58.0 Irritable bowel syndrome with diarrhea; J44.9 Chronic obstructive pulmonary disease, unspecified; J38.3 Other diseases of vocal cords; G47.33 Obstructive sleep apnea (adult) (pediatric); I11.0 Hypertensive heart disease with heart failure; I50.30 Unspecified diastolic (congestive) heart failure; I27.20 Pulmonary hypertension, unspecified; R09.02 Hypoxemia; E03.9 Hypothyroidism, unspecified; E78.5 Hyperlipidemia, unspecified; R60.0 Localized edema; G62.9 Polyneuropathy, unspecified; Z79.899 Other long term (current) drug therapy; Z88.2 Allergy status to sulfonamides; Z87.891 Personal history of nicotine dependence
CPT/HCPCS: 43249; 43239; 88305; 88342; C1726

== ENCOUNTER 2021-05-05 13:22 | Outpatient (REF) | payer MEDICARE, SELFPAY ==
[2021-05-05 14:24] LABS: Alanine Aminotransferase 37 U/L (0-31); Albumin Level 4.3 g/dL (3.5-5.0); Alkaline Phosphatase 108 U/L (39-117); Anion Gap 11 (12-20); Aspartate Amino Transferase 32 U/L (5-31); Bilirubin Total 0.3 mg/dL (0.0-1.0); Blood Urea Nitrogen 19 mg/dL (9-16); Calcium 9.3 mg/dL (8.4-10.2); Carbon Dioxide 28 mmol/L (22-29); Chloride 106 mmol/L (96-108); Estimated Glomerular Filt Rate 58; Glucose Fasting 97 mg/dL (60-99); Potassium 4.1 mmol/L (3.3-5.1); Sodium 141 mmol/L (135-145); Total Protein 6.9 g/dL (6.5-8.0)
[2021-05-05 14:40] LABS: TSH reflex Free T4 2.83 uIU/mL (0.32-4.0)
== END 2021-05-05 13:23 | disposition home or self-care (01) ==
LOC: HO.LAB 13:22
PROVIDERS: PCP Internal Medicine; Visit Provider Internal Medicine
DX: E03.9 Hypothyroidism, unspecified (principal); J45.40 Moderate persistent asthma, uncomplicated; R60.9 Edema, unspecified; I50.33 Acute on chronic diastolic (congestive) heart failure
CPT/HCPCS: 36415; 80053; 84443

== ENCOUNTER → 2021-05-07 10:24 | Outpatient (BNVA) | payer MEDICARE, SELFPAY | PROVIDERS: PCP Internal Medicine; Visit Provider Nurse Practitioner | DX: Z13.89 Encounter for screening for other disorder (principal) | CPT/HCPCS: Q3014 ==

== ENCOUNTER → 2021-05-21 09:30 | Outpatient (BNVA) | payer MEDICARE, SELFPAY | PROVIDERS: PCP Internal Medicine; Referring Provider Internal Medicine; Visit Provider Internal Medicine Cardiovascular Disease | DX: I51.89 Other ill-defined heart diseases (principal); G90.3 Multi-system degeneration of the autonomic nervous system | CPT/HCPCS: 99212 ==

== ENCOUNTER → 2021-06-30 09:34 | Outpatient (BNVA) | payer MEDICARE, SELFPAY | PROVIDERS: PCP Internal Medicine; Referring Provider Internal Medicine; Visit Provider Nurse Practitioner | DX: Z12.11 Encounter for screening for malignant neoplasm of colon (principal); K21.9 Gastro-esophageal reflux disease without esophagitis; K22.4 Dyskinesia of esophagus; K90.0 Celiac disease; K13.79 Other lesions of oral mucosa; R13.10 Dysphagia, unspecified | CPT/HCPCS: 99212 ==

== ENCOUNTER 2021-07-17 12:15 | Outpatient (REF) | payer MEDICARE, SELFPAY | END 2021-07-17 12:16 | disposition home or self-care (01) | LOC: HO.LAB 12:15 | PROVIDERS: PCP Internal Medicine; Referring Provider Internal Medicine; Visit Provider Nurse Practitioner | DX: K12.2 Cellulitis and abscess of mouth (principal); K21.9 Gastro-esophageal reflux disease without esophagitis; K22.4 Dyskinesia of esophagus; K58.0 Irritable bowel syndrome with diarrhea; K90.0 Celiac disease | CPT/HCPCS: 87071; 99212 ==

== ENCOUNTER → 2021-07-21 11:03 | Outpatient (BNVA) | payer MEDICARE, SELFPAY | PROVIDERS: PCP Internal Medicine; Visit Provider Hospitalist | DX: J45.40 Moderate persistent asthma, uncomplicated (principal); G47.33 Obstructive sleep apnea (adult) (pediatric); J18.9 Pneumonia, unspecified organism; Z99.89 Dependence on other enabling machines and devices | CPT/HCPCS: 99212 ==

== ENCOUNTER 2021-08-28 07:53 | Outpatient (REF) | payer MEDICARE, SELFPAY ==
--- NOTE | 2021-08-31 10:21 | MHC.AU.AHA ---
Adult Audiological Evaluation Date of Visit: 08/28/21 Warper Tender Used: Not Applicable Reason for Appointment: Audiologic re-evaluation due to increasing hearing difficulty. Sana was fit with binaural hearing aids from this office in 2019, but has had trouble adapting to them. She stopped using the aids for a period of time, but has noticed more trouble hearing/understanding speech. When Sana tried the hearing aids again, she was not noticing any benefit from the aids. Previous Hearing Test Results: 05/01/2018 [facility] Right Ear - Mild sensorineural hearing loss 250-1000 Hz, rising to normal hearing levels at 1500 and 2000 Hz, dropping to a moderate high frequency sensorineural hearing loss. Left Ear - Borderline normal hearing thresholds 250-2000 Hz, dropping to a moderate high frequency sensorineural hearing loss. Medical History: Medical History: Congestive Heart Failure, Dysphagia, Asthma-COPD Overlap Syndrome, Allergic Rhinitis, Hypothyroid, Celiac Disease, History of Concussion Allergies: Sulfa, Mirtazapine, Gluten Medication List: Albuterol Sulfate, Amlodipine, Atorvastatin, Budesonide, Clopidogrel, Dicyclomine, Estradiol, Fluconazole, Furosemide (potentially ototoxic), Gabapentin, Hydralazine, Labetalol, Levothyroxine, Loratadine, Montelukast, Nystatin, Omeprazole, Ondansetron, Oxybutynin Chloride, Sertraline, Spironolactone, Sumatriptan, Trazadone Hearing Instrument History- Right Ear: Automatic Folder Seamer: [employer] Model: Sync[employer] Innov[employer]o B 90-10 Virtify Serial Number: [id number] Battery Size: 10 Repair Warranty: 08/24/2021 Dispensed By: [facility] Date of Fittin08/03/2018 Hearing Instrument History- Left Ear: Automatic Folder Seamer: [email or web address] Model: [employer] B 90-10 Virtify Serial Number: [id number] Battery Size: 10 Warranty: 08/24/2021 Dispensed By: [facility] Date of Fittin08/03/2018 Otoscopy: Right Ear: Unremarkable Left Ear: Unremarkable Tympanometry: Tympanometry performed due to: To assess integrity of the middle ear system Right Ear: Reduced Middle Ear Compliance (Type As) Left Ear: Normal Middle Ear System (Type A) Hearing Evaluation: Transducer(s) Used: Insert Earphones Bone Conduction Method: Conventional Audiometry Stimuli Used: Pure Tones Right Ear: Description of Hearing: Moderate low frequency sensorineural hearing loss at 250 Hz, rising to normal hearing thresholds at 1500 & 2000 Hz, sloping to a moderate high frequency sensorineural hearing loss. Left Ear: Description of Hearing: Mild sensorineural hearing loss at 250 Hz, rising to normal hearing at 1500 Hz, dropping to a moderately-severe high frequency sensorineural hearing loss. Speech Recognition Threshold (SRT): Method Used: Monitored Live Voice Stimuli Used: Spondee Words Right Ear: 20 dB HL Left Ear: 20 dB HL Word Discrimination: Method: Recorded Lists Word Lists Used: NU-6 Right Ear: 100% at 60 dB HL Left Ear: 100% at 60 dB HL QuickSIN: Binaural Quick SIN Test: 3 SNR Loss which suggests Sana experiences a mild degree of difficulty understanding speech with increasing levels of background noise in this controlled test environment with her full attention to the task. Real world listening situations will likely be more difficult. Comparison: Compared to most recent evaluation: Most hearing thresholds have decreased 5-15 dB with stable speech discrimination ability, both ears. Recommendations: Hearing aid maintenance performed today. Hearing aid(s) reprogrammed with updated test results. Extensively counseled Sana about adapting to hearing aids. Advised her to schedule another appointment if having difficulty adjusting to amplification. Audiological re-evaluation in one year. Will send a reminder card. Diagnosis: Primary Diagnosis: H90.3 Bilateral Sensorineural Hearing Loss Services Performed: Comprehensive Audiological Evaluation (CPT 06526) Tympanometry (CPT 76035) Signature: Provider: Claire Ramos, NOAH-A
== END 2021-08-28 07:54 | disposition home or self-care (01) ==
LOC: HO.SH 07:53
PROVIDERS: Visit Provider Internal Medicine
DX: Z01.118 Encounter for examination of ears and hearing with other abnormal findings (principal); H90.3 Sensorineural hearing loss, bilateral
CPT/HCPCS: 92557; 92567

== ENCOUNTER → 2021-09-01 09:42 | Outpatient (BNVA) | payer MEDICARE, SELFPAY | PROVIDERS: PCP Internal Medicine; Referring Provider Internal Medicine; Visit Provider Nurse Practitioner | DX: K13.79 Other lesions of oral mucosa (principal); K22.4 Dyskinesia of esophagus; K21.9 Gastro-esophageal reflux disease without esophagitis; K58.0 Irritable bowel syndrome with diarrhea; K90.0 Celiac disease | CPT/HCPCS: 99212 ==

== ENCOUNTER 2021-10-13 11:49 | Outpatient (REF) | payer MEDICARE, SELFPAY ==
[2021-10-13 12:30] LABS: MANUAL DIFF FLAG NO
[2021-10-13 12:44] LABS: Basophils Absolute Auto 0.1 X10*3/uL (0.0-0.2); Basophils Percent Auto 1.4 % (0-2); Eosinophils Absolute Auto 0.2 X10*3/uL (0.0-0.4); Eosinophils Percent Auto 3.3 % (0-4); Hematocrit 45.2 % (37.0-47.0); Hemoglobin 14.5 g/dl (12.0-16.0); Imm Gran Abs Auto 0.02 X10*3/uL (0.00-0.03); Imm Gran Pct Auto 0.3 % (0.0-0.4); Lymphocytes Absolute Auto 1.1 X10*3/uL (1.2-4.9); Lymphocytes Percent Auto 17.7 % (20-40); Mean Corpuscular HGB Conc 32.1 g/dl (31.0-35.0); Mean Corpuscular Volume 93.4 fL (80.0-98.0); Monocytes Absolute Auto 0.7 X10*3/uL (0.1-1.2); Monocytes Percent Auto 10.7 % (2-11); Neutrophils Absolute Auto 4.3 x10*3/uL (2.0-8.3); Neutrophils Percent Auto 66.6 % (45-73); Platelet Count 244 X10*3/uL (160-400); Red Blood Count 4.84 X10*6/uL (4.20-5.50); Red Cell Distribution Width 13.3 % (11.0-16.0); White Blood Count 6.4 X10*3/uL (4.8-10.8)
[2021-10-13 13:25] LABS: Vitamin D 25-OH Total 34.6 ng/mL (>30)
[2021-10-14 22:22] LABS: Immunoglobulin A 207 mg/dL (70-320)
[2021-10-14 22:41] LABS: Transglutaminase Ab IgG <1.0 U/mL; Transglutaminase IgA <1.0 U/mL
== END 2021-10-13 11:50 | disposition home or self-care (01) ==
LOC: HO.LAB 11:49
PROVIDERS: PCP Internal Medicine; Visit Provider Hospitalist
DX: K90.0 Celiac disease (principal)
CPT/HCPCS: 36415; 82306; 82784; 85025; 86364

== ENCOUNTER → 2021-11-04 09:42 | Outpatient (REF) | payer MEDICARE, SELFPAY ==
--- NOTE | 2021-11-04 09:45 | CA_ITS ---
Transthoracic Echocardiogram Patient (Last, First, Middle): Sana De Jesus A Gender: Female Date of : 1950 Age: 71 Procedure Date: 11/04/2021 Procedure Type: Transthoracic Echocardiogram Location: OP Height: 162.56 cm Weight: 84.82 kg BSA: 1.90 m2 Heart Rate: bpm BP: 120 / 60 mmHg Gr[employer] 7 [employer] 8 Visiting Teacher: ZULMA Referring MD: Anish Vargas MD Allergy And Immunology Chief: Anish Vargas MD Symptoms: I51.89 - Other ill-defined heart diseases Study Quality: Fair ECG Rhythm: Sinus Conclusions: - 1. Normal LV systolic function with grade 2 diastolic dysfunction 2. Normal cardiac valvular Doppler 3. Normal RV systolic pressure 4. No gross pericardial effusion Findings Left Ventricle Normal left ventricular size, thickness, and systolic function. The visually estimated ejection fraction is between 65-70%. Spectral Doppler is indicative of a pseudonormal filling pattern. Elevated left atrial and left ventricular end-diastolic pressures. E/E prime ratio is >15, consistent with elevated filling pressures. Evidence suggests grade II (moderate) diastolic dysfunction. Right Ventricle Normal right ventricular cavity size and systolic function. Atria The left atrium is likely dilated. There is no evidence of interatrial shunt. The right atrium is normal in size. Aortic Valve There is mild calcification of the aortic valve. There is no aortic valve stenosis. There is no aortic valve regurgitation. Mitral Valve Normal mitral valve structure and function. There is trace mitral valve regurgitation. There is no mitral valve stenosis. Pulmonic Valve The pulmonic valve is likely normal. There is trace to mild pulmonic valve regurgitation. Tricuspid Valve Normal tricuspid valve structure. There is mild tricuspid valve regurgitation. The right ventricular systolic pressure is normal. The right ventricular systolic pressure is 26 mmHg. Normal right atrial pressure. There is no evidence of pulmonary hypertension. Great Vessels All visible segments of the aorta are normal in size. The pulmonary artery was not well visualized. Venous The inferior vena cava is normal in size and collapses greater than 50% with inspiration. Pericardium/Pleural There is no evidence of pericardial effusion. Prior Study Comparison No significant change compared to prior study dated: 11/07/2020. Measurements 2D Linear Measurements IVSd: 0.71 0.6-0.9/0.6-1.0 cm LVIDd: 4.42 3.9-5.3/4.2-5.9 cm LVIDd Index: 2.33 2.4-3.2/2.2-3.1 cm/m2 LVIDs: 2.69 2.0-3.6 cm LVPWd: 0.83 0.7-1.1 cm LA Diam: 3.70 2.7-3.8/3.0-4.0 cm LAIDs Index: 1.95 1.5-2.3 cm/m2 LV Mass: 129.93 67-162/88-224 g LV Mass Index: 68.38 43-95/49-115 g/m2 LVOT Diam: 1.80 3.0+(-)1.3 cm 2D Systolic Function EF 4C: 68.00 >55% EF 2C: 67.00 >55% EF BiP: 67.90 >55% Mitral Valve MV Pk E: 1.18 MV PK A: 1.01 MV Decel Time: 191.00 E/A: 1.20 E'Lateral: 7.40 E'Medial: 6.42 E/E' Med: 18.40 E/E' Lat: 15.90 PHT: 56.00 MVA PHT: 3.93 Decel [place]: 6.15 Aortic Valve AoV Pk Armando: 1.52 AoV Mn Armando: 1.02 AoV VTI: 0.39 AoV Pk Grad: 9.00 Aov Mn Grad: 5.00 NICOLE Cont.VTI: 2.25 LVOT LVOT Pk Armando: 1.19 LVOT Mn Armando: 0.84 LVOT VTI: 0.34 LVOT Pk Grad: 6.00 LVOT Mn Grad: 3.00 LVOT Diam: 1.80 LVOT Area: 2.54 Diastolic Function MV Pk E: 1.18 MV Pk A: 1.01 E/A: 1.20 E'Medial: 6.42 E/E' Med: 18.40 E' Laterial: 7.40 E/E' Lat: 15.90 Right Ventricle TAPSE (mm): 26.70 TVS' Armando: 9.90 Tricuspid Valve TR Pk Armando: 2.42 TR Pk Grad: 23.00 RA Press: 3.00 RVSP: 26.00 Great Vessels Aorta Sinus of Valsalva: 2.74 2.0-3.[address] [place]: 2.32 1.7-3.4 cm Ao Asc: 2.80 2.1-3.4 cm Ao Arch: 2.80 Updated in Other Vendor System with Status of Final Anish Vargas MD electronically signed on 11/05/2021 1:24:12 PM with status of Final
== END ==
LOC: HO.CARD 09:42
PROVIDERS: PCP Internal Medicine; Visit Provider Internal Medicine Cardiovascular Disease
DX: I51.89 Other ill-defined heart diseases (principal)
CPT/HCPCS: 93306

== ENCOUNTER → 2021-11-12 09:31 | Outpatient (BNVA) | payer MEDICARE, SELFPAY | PROVIDERS: PCP Internal Medicine; Referring Provider Internal Medicine; Visit Provider Internal Medicine Cardiovascular Disease | DX: I50.33 Acute on chronic diastolic (congestive) heart failure (principal); G90.3 Multi-system degeneration of the autonomic nervous system; Z79.899 Other long term (current) drug therapy | CPT/HCPCS: 93005; 99212 ==

== ENCOUNTER → 2021-12-29 09:35 | Outpatient (BNVA) | payer MEDICARE, SELFPAY | PROVIDERS: PCP Internal Medicine; Visit Provider Hospitalist | DX: J45.40 Moderate persistent asthma, uncomplicated (principal); J18.9 Pneumonia, unspecified organism; R91.1 Solitary pulmonary nodule; G47.33 Obstructive sleep apnea (adult) (pediatric); Z99.89 Dependence on other enabling machines and devices | CPT/HCPCS: 99212 ==

== ENCOUNTER 2022-03-19 14:42 | Outpatient (REF) | payer MEDICARE, SELFPAY ==
--- NOTE | ~2022-03-19 | XR_ITS ---
EXAMINATION: XR PELVIS CLINICAL INFORMATION: Fracture of the unspecified part of the lumbosacral spine and pelvis. COMPARISON: None TECHNIQUE: AP view of the pelvis. FINDINGS: Mild diffuse osteopenia. Comminuted fractures of the right pubic ring involving both superior and inferior pubic rami. No other displaced fracture. Phleboliths within the right hemipelvis. Significant fecal residual within the large bowel. Moderate spondylosis at L5-L4. XR/XR pelvis 1-2V IMPRESSION: 1. Mild diffuse osteopenia. 2. Comminuted fractures of of the right superior and inferior pubic rami.
== END 2022-03-19 14:43 | disposition home or self-care (01) ==
LOC: HO.HMGCX 14:42
PROVIDERS: PCP Internal Medicine; Visit Provider Internal Medicine
DX: S32.9XXA Fracture of unspecified parts of lumbosacral spine and pelvis, initial encounter for closed fracture (principal)
CPT/HCPCS: 72170

== ENCOUNTER 2022-03-26 14:45 | Outpatient (REF) | payer MEDICARE, SELFPAY ==
[2022-03-26 16:44] LABS: Appearance Urine Clear; Color Urine Yellow; Glucose Urine UA Negative (Negative); Leukocyte Esterase Urine Large (3+) (Negative); Nitrite Urine Negative (Negative); PH 5.5 (5.0-8.0); Specific Gravity - Urine <= 1.005 (1.005-1.025); Urine Blood Negative (Negative); Urine Ketones Negative (Negative); Urine Protein Negative (Neg-Trace)
[2022-03-26 17:08] LABS: Bacteria Urine 1+ (None Seen); Hyaline Casts Urine 0-2 /LPF (0-2); RBC Urine 0-2 /HPF (0-2); UACC Culture Trigger YES; WBC Urine >50 /HPF (0-5)
== END 2022-03-26 14:46 | disposition home or self-care (01) ==
LOC: HO.HMGCLDS 14:45
PROVIDERS: PCP Internal Medicine; Visit Provider Internal Medicine
DX: N39.0 Urinary tract infection, site not specified (principal)
CPT/HCPCS: 81001; 81003; 87086; 87088; 87186

== ENCOUNTER 2022-05-04 13:00 | Outpatient (REF) | payer MEDICARE, SELFPAY ==
--- NOTE | ~2022-05-04 | CT_ITS ---
EXAMINATION: CT CHEST WITHOUT CONTRAST CLINICAL INFORMATION: Solitary pulmonary nodule. COMPARISON: None outside CT chest 11/25/2021. TECHNIQUE: Multidetector volumetric CT imaging of the chest was done. Axial MIP volume rendering provided. Sagittal and coronal reformatted images were obtained. This CT examination was performed using dose optimization techniques as appropriate, variously including the following: *Automated exposure control *Adjustment of mA and/or kV according to patient size (this includes techniques or standardized protocols for targeted exams where dose is matched to indication/reason for exam; i.e. extremities or head) *Use of iterative reconstruction technique DLP: 154 mGy-cm. FINDINGS: SENIOR PORTFOLIO ANALYST: Unremarkable. LUNGS: The lungs are well expanded without acute consolidation. There is peripheral tree-in-bud appearance in both upper lobes on axial 206/9, right upper lobe adjacent to major fissure image 205/9. There is a 3 mm nodule and a peripherally-based 2 mm nodule right middle lobe axial image 204/9 and right lower lobe axial image 338/9, a 3 mm nodule in the lingula axial image 271/9, a 2 mm nodule left lower lobe with minimal tenting of the major fissure axial image 245/9, and a small nodule left lower lobe posterior basal segment image 388/9. MEDIASTINUM: Thyroid lobes are symmetrical and normal. The central trachea and bronchi are widely patent. Heart size and the great vessels are normal caliber. No pericardial effusion seen. No abnormal size mediastinal or hilar lymph nodes seen. CORONARY ARTERY CALCIFICATION: None visualized on this study. PLEURA: There is no pleural effusion. No pleural mass or thickening. AXILLA: There are small shotty lymph nodes in the right axilla. The chest wall is unremarkable. UPPER ABDOMEN: Visualized liver, spleen, pancreas and bilateral adrenal glands unremarkable. No radiopaque gallstones or wall thickening. OSSEOUS STRUCTURES: There are old healing fractures left lateral fifth and seventh rib fractures. CT/CT chest wo IV con IMPRESSION: Expanded lungs with no acute consolidation. Tree-in-bud appearance both upper lobes and small nodules in both lower lobes. These are essentially stable to a 11/25/[address] chest. Recommend the follow-up in 18-24 months as per Fleischner guidelines. Fleischner guidelines were followed.
== END 2022-05-04 13:01 | disposition home or self-care (01) ==
LOC: HO.CT 13:00
PROVIDERS: PCP Internal Medicine; Visit Provider Hospitalist
DX: R91.1 Solitary pulmonary nodule (principal)
CPT/HCPCS: 71250

== ENCOUNTER → 2022-05-05 10:02 | Outpatient (BNVA) | payer MEDICARE, SELFPAY | PROVIDERS: PCP Internal Medicine; Visit Provider Hospitalist | DX: J45.40 Moderate persistent asthma, uncomplicated (principal); R91.1 Solitary pulmonary nodule; J18.9 Pneumonia, unspecified organism; G47.33 Obstructive sleep apnea (adult) (pediatric); Z99.89 Dependence on other enabling machines and devices | CPT/HCPCS: 99212 ==

== ENCOUNTER → 2022-06-08 10:47 | Outpatient (BNVA) | payer MEDICARE, SELFPAY | PROVIDERS: PCP Internal Medicine; Referring Provider Internal Medicine; Visit Provider Internal Medicine Cardiovascular Disease | DX: I50.33 Acute on chronic diastolic (congestive) heart failure (principal); G90.3 Multi-system degeneration of the autonomic nervous system | CPT/HCPCS: 99212 ==

== ENCOUNTER 2022-06-14 14:50 | Outpatient (REF) | payer MEDICARE, SELFPAY ==
[2022-06-14 15:16] LABS: Hematocrit 43.4 % (37.0-47.0); Hemoglobin 14.3 g/dl (12.0-16.0); Mean Corpuscular HGB Conc 32.9 g/dl (31.0-35.0); Mean Corpuscular Hemoglobin 29.9 pg (27.0-33.0); Mean Corpuscular Volume 90.8 fL (80.0-98.0); Mean Platelet Volume 10.2 fL (9.4-12.3); Platelet Count 288 X10*3/uL (160-400); Red Blood Count 4.78 X10*6/uL (4.20-5.50); Red Cell Distribution Width 13.4 % (11.0-16.0); White Blood Count 6.8 X10*3/uL (4.8-10.8)
[2022-06-14 16:04] LABS: TSH reflex Free T4 2.17 uIU/mL (0.32-4.0)
[2022-06-17 16:32] LABS: NT-proBNP 162 pg/mL
== END 2022-06-14 14:51 | disposition home or self-care (01) ==
LOC: HO.LAB 14:50
PROVIDERS: PCP Internal Medicine; Visit Provider Internal Medicine Cardiovascular Disease
DX: I50.33 Acute on chronic diastolic (congestive) heart failure (principal); E78.5 Hyperlipidemia, unspecified; K21.9 Gastro-esophageal reflux disease without esophagitis; E03.9 Hypothyroidism, unspecified; G90.3 Multi-system degeneration of the autonomic nervous system
CPT/HCPCS: 36415; 83880; 84443; 85027

== ENCOUNTER 2022-06-23 14:17 | Outpatient (REF) | payer MEDICARE, SELFPAY ==
--- NOTE | ~2022-06-23 | MM_ITS ---
EXAMINATION: MM SCREENING DIGITAL BREAST TOMOSYNTHESIS, BILATERAL CLINICAL INFORMATION: Screening. Asymptomatic. The lifetime risk of breast cancer based on the Tyrer-Cuzick Model is 6%. COMPARISON: Mammography: 10/23/2020, 03/29/2019, 01/27/2018 TECHNIQUE: Digital breast tomosynthesis is performed in both the craniocaudal and mediolateral oblique views along with computer-aided detection (CAD). Synthesized 2D images are generated from the tomosynthesis. FINDINGS: There are scattered areas of fibroglandular density (ACR BI-RADS breast composition Category b). There are no significant masses, abnormal calcifications, or other abnormalities. Parenchymal pattern is similar to prior studies. No developing density. There is a biopsy clip marker again seen central lower inner left breast. The axilla and skin contours are unremarkable. MM/MM tomosynthesis screening BI IMPRESSION: No mammographic evidence of malignancy. ASSESSMENT: BI-RADS 1: Negative RECOMMENDATION: Routine annual mammography screening. This patient's information was entered into a reminder system with a target due date for their next mammogram.
--- NOTE | ~2022-06-23 | MM_ITS ---
EXAMINATION: BONE DENSITOMETRY CLINICAL INDICATION: Menopausal. COMPARISON: Previous BD dated 10/03/2018 and baseline BD dated 04/24/2008. TECHNIQUE: Using a wiseri DXA System (software version: 13.1) manufactured by [employer] Heart Valve, dual-energy x-ray absorptiometry was performed of the lumbar spine and left hip. The images are of good technical quality. Summary results are attached. FINDINGS: AP SPINE L1-L2 (excluding L3 and L4): The data of L1-L4 has been changed to exclude the L3 and L4 vertebral bodies, because degenerative changes at these levels may cause overestimation of lumbar spine density. Current: BMD 1.043 g/cm2, Z-score 0.2, T-score -1.0, normal, 4.8% decrease from previous, 2.6% decrease from baseline (<5% change is not significant). Prior: BMD 1.096 g/cm2. Baseline: BMD 1.071 g/cm2. LEFT FEMUR, NECK: Current: BMD 0.844 g/cm2, Z-score 0.0, T-score -1.4, osteopenia. Prior: BMD 0.871 g/cm2. Baseline: BMD 0.812 g/cm2. LEFT FEMUR, TOTAL: Current: BMD 0.922 g/cm2, Z-score 0.5, T-score -0.7, normal, 6.5% increase from previous, 6.8% increase from baseline (<5% change is not significant). Prior: BMD 0.866 g/cm2. Baseline: BMD 0.863 g/cm2. IDENTIFIED RISK FACTORS: Bilateral oophorectomy, height loss, history of fracture (adult), hysterectomy, intestinal/bowel disease, menopause, secondary osteoporosis. HISTORY OF FRACTURE: Pelvis. MEDICATIONS: Calcium, vitamin D, ERT. MM/XR DEXA axial skeleton IMPRESSION: 1. DIAGNOSIS: Osteopenia based on the lowest T-score value of -1.4 in the femoral neck applying World Health Organization criteria. 2. 10-YEAR FRACTURE RISK PREDICTION, FRAX: Not performed in this patient on estrogen or bone building treatments. 3. Treatment Recommendations: NOF guidelines recommend consideration for treatment in postmenopausal women and men age 50 and older presenting with the following: -A hip or vertebral (clinical or morphometric) fracture. -T-score less than or equal to -2.5 at the femoral neck or spine after appropriate evaluation to exclude secondary causes. -Low bone mass at the hip or spine and a 10-year fracture probability by FRAX of greater than or equal to 3% for hip fracture or greater than or equal to 20% for major osteoporotic fracture based on the [place] adapted WHO algorithm. 4. Other Recommendations: All treatment decisions require clinical judgment and consideration of individual patient factors, including patient preferences, comorbidities, previous drug use, risk factors not captured in the FRAX model (e.g. frailty, falls, vitamin D deficiency, increased bone turnover, interval significant decline in bone density) and possible under or overestimation of fracture risk by FRAX. Additional medical evaluation for secondary cause of low bone mineral density may be appropriate. FUTURE SCAN RECOMMENDATION: People with diagnosed cases of osteoporosis or at high risk for fracture should have regular bone mineral density tests. For patients eligible for Medicare, routine testing is allowed once every 2 years. The testing frequency can be increased to one year for patients who have rapidly progressing disease, those who are receiving or discontinuing medical therapy to restore bone mass, or have additional risk factors.
== END 2022-06-23 14:18 | disposition home or self-care (01) ==
LOC: HO.MAMMO 14:17
PROVIDERS: Visit Provider Internal Medicine
DX: Z12.31 Encounter for screening mammogram for malignant neoplasm of breast (principal); Z13.820 Encounter for screening for osteoporosis; Z78.0 Asymptomatic menopausal state
CPT/HCPCS: 77063; 77067; 77080

== ENCOUNTER 2022-07-16 09:31 | Outpatient (REF) | payer MEDICARE, SELFPAY ==
[2022-07-16 10:50] LABS: Appearance Urine Clear; Color Urine Yellow; Glucose Urine UA Negative (Negative); Leukocyte Esterase Urine Large (3+) (Negative); Nitrite Urine Negative (Negative); UMIC TRIGGER UA YES; Urine Blood Negative (Negative); Urine Ketones Negative (Negative); Urine Protein Negative (Neg-Trace)
[2022-07-16 10:52] LABS: Bacteria Urine None Seen (None Seen); Hyaline Casts Urine 0-2 /LPF (0-2); RBC Urine 0-2 /HPF (0-2); WBC Urine 21-50 /HPF (0-5)
[2022-07-16 12:09] LABS: Alanine Aminotransferase 133 U/L (0-31); Albumin Level 4.2 g/dL (3.5-5.0); Alkaline Phosphatase 124 U/L (39-117); Anion Gap 15 (12-20); Aspartate Amino Transferase 71 U/L (5-31); Bilirubin Total 0.5 mg/dL (0.0-1.0); Blood Urea Nitrogen 20 mg/dL (9-16); Calcium 9.2 mg/dL (8.4-10.2); Carbon Dioxide 21 mmol/L (22-29); Chloride 106 mmol/L (96-108); Cholesterol 176 mg/dL; Estimated Glomerular Filt Rate > 60; Glucose Fasting 94 mg/dL (60-99); HDL Cholesterol 45 mg/dL; LDL Cholesterol Calculated 110 mg/dl; Potassium 3.9 mmol/L (3.3-5.1); Sodium 138 mmol/L (135-145); Total Protein 6.8 g/dL (6.5-8.0); Triglycerides 105 mg/dL
[2022-07-16 14:47] LABS: Vitamin B12 337 pg/mL (200-900)
[2022-07-16 15:08] LABS: Folate 11.9 ng/mL (> or = 4.0)
[2022-07-21 14:03] LABS: Vitamin B6 7.2 ng/mL (2.1-21.7)
[2022-07-22 15:38] LABS: Vitamin B1 9 nmol/L (8-30)
== END 2022-07-16 09:32 | disposition home or self-care (01) ==
LOC: HO.LAB 09:31
PROVIDERS: PCP Internal Medicine; Visit Provider Internal Medicine
DX: K90.0 Celiac disease (principal); E78.5 Hyperlipidemia, unspecified; K21.9 Gastro-esophageal reflux disease without esophagitis; E03.9 Hypothyroidism, unspecified; G90.3 Multi-system degeneration of the autonomic nervous system
CPT/HCPCS: 36415; 80053; 80061; 81001; 82607; 82746; 84207; 84425

== ENCOUNTER 2022-07-22 11:45 | Outpatient (REF) | payer MEDICARE, SELFPAY ==
[2022-07-23 09:11] LABS: HBc Num1 0.11 S/CO (0.00-0.79); HBsAGNum1 0.24 S/CO (0.00-0.99); Hepatitis A Antibody IgM 0.22 Index (0-0.79); Hepatitis B Core Antibody Nonreactive (Nonreactive); Hepatitis B Surface Antigen Negative (Negative); ~HepC Num1 2.45 S/CO (0.00-0.79); ~Hepatitis A Antibody IgM Nonreactive (Nonreactive); ~Hepatitis B Surface Antibody REACTIVE (Nonreactive); ~Hepatitis C Antibody Reactive (Nonreactive)
[2022-07-26 12:33] LABS: Liver Kidney Microsomal Ab <=20.0 U (<=20.0)
[2022-07-27 15:23] LABS: Anti Nuclear Antibody Screen NEGATIVE (NEGATIVE)
[2022-07-28 15:33] LABS: FIB-ALT 93 U/L (6-29); FIB-Alpha-2-Macroglobulin 176 mg/dL (106-279); FIB-Apolipoprotein A1 150 mg/dL (101-198); FIB-GGT 78 U/L (3-65); FIB-Haptoglobin 196 mg/dL (43-212); FIB-Total Bilirubin 0.4 mg/dL (0.2-1.2); Liver Fibrosis Score 0.22; Liver Fibrosis Stage F0-F1; Nec Inflam Act Grade A1-A2; Nec Inflam Act Score 0.51
[2022-07-30 06:03] LABS: Mitochondrial Antibodies NEGATIVE (NEGATIVE)
== END 2022-07-22 11:46 | disposition home or self-care (01) ==
LOC: HO.HMGCLDS 11:45
PROVIDERS: PCP Internal Medicine; Visit Provider Internal Medicine
DX: R79.89 Other specified abnormal findings of blood chemistry (principal)
CPT/HCPCS: 36415; 81596; 86038; 86039; 86255; 86256; 86376; 86704; 86706; 86709; 86803; 87340

== ENCOUNTER 2022-07-24 08:12 | Outpatient (REF) | payer MEDICARE, SELFPAY ==
[2022-07-24 11:30] LABS: Appearance Urine Clear; Color Urine Yellow; Glucose Urine UA Negative (Negative); Leukocyte Esterase Urine Large (3+) (Negative); Nitrite Urine Negative (Negative); UMIC TRIGGER UA YES; Urine Blood Negative (Negative); Urine Ketones Negative (Negative); Urine Protein Negative (Neg-Trace)
[2022-07-24 11:37] LABS: Bacteria Urine None Seen (None Seen); Hyaline Casts Urine 0-2 /LPF (0-2); RBC Urine 0-2 /HPF (0-2); Squamous Epithelial Cell Urine 0-2 /HPF (0-2)
[2022-07-24 12:00] LABS: Alanine Aminotransferase 167 U/L (0-31); Albumin Level 4.4 g/dL (3.5-5.0); Alkaline Phosphatase 123 U/L (39-117); Aspartate Amino Transferase 106 U/L (5-31); Bilirubin Direct 0.2 mg/dL (0.0-0.5); Bilirubin Total 0.5 mg/dL (0.0-1.0); Total Protein 7.1 g/dL (6.5-8.0)
[2022-07-28 19:18] LABS: HCV Log PCR <1.18 NOT DETECTED Log IU/mL (NOT DETECTED); HepC Viral Load <15 NOT DETECTED IU/mL (NOT DETECTED)
[2022-08-04 09:19] LABS: Hepatitis C Genotype Not Detected
== END 2022-07-24 08:13 | disposition home or self-care (01) ==
LOC: HO.HMGCLDS 08:12
PROVIDERS: PCP Internal Medicine; Visit Provider Internal Medicine
DX: R76.8 Other specified abnormal immunological findings in serum (principal); R79.89 Other specified abnormal findings of blood chemistry
CPT/HCPCS: 36415; 80076; 81001; 87522; 87902

== ENCOUNTER 2022-07-30 09:55 | Outpatient (REF) | payer MEDICARE, SELFPAY ==
[2022-07-30 12:23] LABS: Erythrocyte Sedimentation Rate 7 MM/HR (0-20)
[2022-07-30 12:40] LABS: Appearance Urine Clear; Color Urine Yellow; Glucose Urine UA Negative (Negative); Leukocyte Esterase Urine Trace (Negative); Nitrite Urine Negative (Negative); PH 5.5 (5.0-9.0); UMIC TRIGGER UA YES; Urine Blood Negative (Negative); Urine Ketones Negative (Negative); Urine Protein Negative (Neg-Trace)
[2022-07-30 12:46] LABS: Bacteria Urine None Seen (None Seen); Hyaline Casts Urine 0-2 /LPF (0-2); RBC Urine 0-2 /HPF (0-2); Squamous Epithelial Cell Urine 0-2 /HPF (0-2); WBC Urine 0-5 /HPF (0-5)
[2022-07-30 14:42] LABS: Folate 8.2 ng/mL (> or = 4.0); Vitamin B12 415 pg/mL (200-900)
[2022-08-02 13:09] LABS: Anti Nuclear Antibody Screen NEGATIVE (NEGATIVE)
[2022-08-03 11:43] LABS: Alpha 1 Anti-trypsin 257 mg/dL (83-199); Ceruloplasmin 30 mg/dL (18-53)
[2022-08-03 20:48] LABS: Immunoglobulin E 10 kU/L (<OR=114)
[2022-08-04 00:34] LABS: Zinc 82 mcg/dL (60-130)
[2022-08-04 13:58] LABS: Aldolase 7.8 U/L (<=8.1); Angiotensin Converting Enzyme 18 U/L (9-67); Soluble Liver Ag Autoantibody <20.1 U (0.0-20.0)
[2022-08-04 14:18] LABS: Vitamin B6 13.9 ng/mL (2.1-21.7)
[2022-08-04 17:03] LABS: Alpha-Tocopherol 29.9 mg/L (5.7-19.9); Beta-Gamma Tocopherol <1.0 mg/L (<=4.3); Vitamin A 90 mcg/dL (38-98)
[2022-08-04 18:09] LABS: Alk.Phos Iso. Macrohepatic 0 % (<=0); Alk.Phos Isoenzymes Bone 66 % (28-66); Alk.Phos Isoenzymes Intest 0 % (1-24); Alk.Phos Isoenzymes Liver 34 % (25-69); Alk.Phos Isoenzymes Placental 0 % (<=0); Alk.Phos Isoenzymes Total 120 U/L (37-153)
[2022-08-05 13:28] LABS: Nicotinamide 20 ng/mL; Vit B3 - Nicotinic Acid <20 ng/mL; Vitamin B5 (Pantothenic Acid) 52 ng/mL (<275)
[2022-08-05 13:53] LABS: Vitamin C 1.5 mg/dL (0.3-2.7)
[2022-08-05 17:18] LABS: Transglutaminase Ab IgG 2.2 U/mL; Transglutaminase IgA <1.0 U/mL
[2022-08-05 17:34] LABS: Gliadin Deamidated IgA Ab 2.1 U/mL; Gliadin Deamidated IgG Ab <1.0 U/mL
[2022-08-06 16:32] LABS: Histamine Plasma <1.5 ng/mL (< OR = 1.8)
[2022-08-08 09:53] LABS: Vitamin B1 10 nmol/L (8-30)
[2022-08-08 23:44] LABS: Vitamin K1 598 pg/mL (130-1500)
== END 2022-07-30 09:56 | disposition home or self-care (01) ==
LOC: HO.LAB 09:55
PROVIDERS: PCP Internal Medicine; Visit Provider Internal Medicine Gastroenterology
DX: K22.4 Dyskinesia of esophagus (principal); R79.89 Other specified abnormal findings of blood chemistry; R79.82 Elevated C-reactive protein (CRP); E83.52 Hypercalcemia; G89.29 Other chronic pain; R10.33 Periumbilical pain; R19.7 Diarrhea, unspecified; T78.1XXA Other adverse food reactions, not elsewhere classified, initial encounter; X58.XXXA Exposure to other specified factors, initial encounter; D72.10 Eosinophilia, unspecified
CPT/HCPCS: 36415; 81001; 82085; 82103; 82164; 82180; 82306; 82390; 82550; 82607; 82746; 82785; 83088; 83520; 83735; 84080; 84207; 84425; 84446; 84590; 84591; 84597; 84630; 85652; 86003; 86038; 86039; 86258; 86364; 99212

== ENCOUNTER 2022-08-13 09:36 | Outpatient (REF) | payer MEDICARE, SELFPAY ==
--- NOTE | ~2022-08-13 | US_ITS ---
EXAMINATION: US ABDOMEN COMPLETE CLINICAL INFORMATION: Other specified abnormal findings of blood chemistry. COMPARISON: Renal ultrasound 01/05/2021. CT abdomen and pelvis 03/02/2018. TECHNIQUE: Real-time imaging of the abdominal viscera. FINDINGS: PANCREAS: Normal. ABDOMINAL AORTA: The proximal, mid, and distal segments are normal in caliber. INFERIOR VENA CAVA: Visualized portions are normal. LIVER: Normal. The liver is normal in size. The liver contour is normal. Parenchymal echogenicity is normal. No focal hepatic lesion. There is no intrahepatic biliary duct dilatation seen. GALLBLADDER: The gallbladder is physiologically distended. Multiple mobile gallstones are present. No evidence of gallbladder wall thickening or pericholecystic fluid. COMMON BILE DUCT: Normal in caliber measuring 0.38 cm in diameter. RIGHT KIDNEY: Normal. No hydronephrosis. No renal calculi or focal parenchymal lesions. The kidney measures 9.9 cm in maximum dimension. LEFT KIDNEY: Normal. No hydronephrosis. No renal calculi or focal parenchymal lesions. The kidney measures 9.0 cm in maximum dimension. SPLEEN: Normal. The spleen measures 10.4 cm in maximum dimension. FREE FLUID: None. US/US abdomen complete IMPRESSION: There is cholelithiasis, without cholecystitis or choledocholithiasis.
== END 2022-08-13 09:37 | disposition home or self-care (01) ==
LOC: HO.HMGCX 09:36
PROVIDERS: PCP Internal Medicine; Visit Provider Internal Medicine
DX: R79.89 Other specified abnormal findings of blood chemistry (principal)
CPT/HCPCS: 76700

== ENCOUNTER 2022-09-15 12:49 | Outpatient (REF) | payer MEDICARE, SELFPAY ==
--- NOTE | ~2022-09-15 | XR_ITS ---
EXAMINATION: XR CHEST CLINICAL INFORMATION: Cough. COMPARISON: 01/18/2021 chest radiographs. TECHNIQUE: 2 views of the chest were obtained. FINDINGS: No significant abnormality is noted involving the heart, lungs, mediastinum, bony thorax or soft tissues. XR/XR chest 2V IMPRESSION: No acute cardiopulmonary process.
[2022-09-15 14:03] LABS: MANUAL DIFF FLAG NO
[2022-09-15 14:12] LABS: Basophils Absolute Auto 0.1 X10*3/uL (0.0-0.2); Basophils Percent Auto 0.8 % (0-2); Eosinophils Absolute Auto 0.2 X10*3/uL (0.0-0.4); Eosinophils Percent Auto 2.1 % (0-4); Hematocrit 43.9 % (37.0-47.0); Hemoglobin 13.9 g/dl (12.0-16.0); Imm Gran Abs Auto 0.06 X10*3/uL (0.00-0.03); Imm Gran Pct Auto 0.6 % (0.0-0.4); Lymphocytes Absolute Auto 1.2 X10*3/uL (1.2-4.9); Lymphocytes Percent Auto 10.9 % (20-40); Mean Corpuscular HGB Conc 31.7 g/dl (31.0-35.0); Mean Corpuscular Volume 91.6 fL (80.0-98.0); Mean Platelet Volume 10.9 fL (9.4-12.3); Neutrophils Absolute Auto 8.1 x10*3/uL (2.0-8.3); Neutrophils Percent Auto 76.6 % (45-73); Platelet Count 301 X10*3/uL (160-400); Red Blood Count 4.79 X10*6/uL (4.20-5.50); White Blood Count 10.5 X10*3/uL (4.8-10.8)
[2022-09-15 14:41] LABS: B Type Natriuretic Peptide 83 pg/mL (<100)
[2022-09-15 14:45] LABS: Alanine Aminotransferase 22 U/L (0-31); Albumin Level 4.3 g/dL (3.5-5.0); Alkaline Phosphatase 121 U/L (39-117); Anion Gap 16 (12-20); Aspartate Amino Transferase 24 U/L (5-31); Bilirubin Total 0.6 mg/dL (0.0-1.0); Blood Urea Nitrogen 12 mg/dL (9-16); Calcium 9.3 mg/dL (8.4-10.2); Carbon Dioxide 27 mmol/L (22-29); Chloride 102 mmol/L (96-108); Estimated Glomerular Filt Rate > 60; Glucose Random 103 mg/dL (60-115); Potassium 4.2 mmol/L (3.3-5.1); Sodium 141 mmol/L (135-145)
== END 2022-09-15 12:50 | disposition home or self-care (01) ==
LOC: HO.HMGCLDS 12:49
PROVIDERS: Visit Provider Internal Medicine
DX: J44.9 Chronic obstructive pulmonary disease, unspecified (principal); R05.9 Cough, unspecified
CPT/HCPCS: 36415; 71046; 80053; 83880; 85025; 86140

== ENCOUNTER 2022-10-15 20:41 | Inpatient (IN) | payer MEDICARE, SELFPAY ==
--- NOTE | ~2022-10-15 | CT_ITS ---
EXAMINATION: CT CHEST WITHOUT CONTRAST CLINICAL INFORMATION: Pneumonia COMPARISON: 05/04/2022 TECHNIQUE: Multidetector volumetric CT imaging of the chest was done. Axial MIP volume rendering provided. Sagittal and coronal reformatted images were obtained. This CT examination was performed using dose optimization techniques as appropriate, variously including the following: *Automated exposure control *Adjustment of mA and/or kV according to patient size (this includes techniques or standardized protocols for targeted exams where dose is matched to indication/reason for exam; i.e. extremities or head) *Use of iterative reconstruction technique DLP: 202 mGy-cm FINDINGS: MANUFACTURING MAINTENANCE MECHANIC: Cardiac leads overlie the chest. LUNGS: The central airways are patent. Mild bronchiectasis in the lower lobes. No dense consolidation. Right middle lobe 0.3 cm nodule is unchanged on series 4 image 277. Peripheral scarring of the right midlung, unchanged. MEDIASTINUM: Normal heart size. No pericardial effusion. No mediastinal lymphadenopathy. The thyroid gland is unremarkable. CORONARY ARTERY CALCIFICATION: None visualized on this study. PLEURA: There is no pleural effusion. No pleural mass or thickening. No pneumothorax. AXILLA: No lymphadenopathy. UPPER ABDOMEN: Unremarkable. OSSEOUS STRUCTURES: Unremarkable. CT/CT chest wo IV con IMPRESSION: 1. No acute pulmonary finding. Mild lower lobe bronchiectasis. 2. Unchanged 0.3 cm right middle lobe pulmonary nodule, suggesting benign etiology. Fleischner guidelines were followed.
--- NOTE | ~2022-10-15 | XR_ITS ---
EXAMINATION: XR CHEST CLINICAL INFORMATION: Cough. Right lower lobe pneumonia concern COMPARISON: 09/15/2022 TECHNIQUE: Frontal view of the chest was obtained. FINDINGS: Cardiac leads overlie the chest. The lungs are well expanded. There is no focal consolidation, edema, or effusion. No pneumothorax. The cardiomediastinal silhouette is within normal limits. No acute osseous abnormality. XR/XR chest 1V IMPRESSION: No acute pulmonary disease.
[2022-10-15 20:53] VITALS: BP 118/98; PULSE 75; RESP 16; TEMP 36.8; O2SAT 92; BMI 30.9
--- NOTE | 2022-10-15 21:48 | ED_ITS ---
HPI - General Adult General Chief complaint: Fever Stated complaint: Fever/Low O2 Time Seen by Provider: 10/15/22 21:46 Source: patient Mode of arrival: ambulatory Limitations: no limitations History of Present Illness HPI narrative: Patient is 72 years old with history of celiac disease hypertension CHF sleep apnea on CPAP at night with history of pneumonia comes here for having chills lethargic a since yesterday evening at a temperature 101 degrees at home also having dry cough with increased shortness of breath was saturated 87% at room air at home patient recently treated with doxycycline for sinus infection stopped one week ago. No wheezing no leg swelling no chest pain or palpitation Related Data Home Medications Medication Instructions Recorded Confirmed flu vacc 2019-(66yr 0.5 ml IM DIRECTED 07/01/20 09/15/22 up)-MF59C(PF) 60 mcg(15 mcgx4)/0.5 mL IM syringe albuterol sulfate 90 mcg/actuation 2 puff inhalation Q6H PRN 11/26/20 09/15/22 aerosol inhaler (ProAir HFA) oxybutynin chloride 5 mg tablet 5 mg PO BEDTIME 01/01/21 09/15/22 sertraline 100 mg tablet 200 mg PO DAILY 05/06/21 09/15/22 trazodone 50 mg tablet 50 mg PO BEDTIME 05/21/21 09/15/22 ketoconazole 2 % topical cream 1 appl topical 11/03/21 09/15/22 lorazepam 1 mg tablet 1 mg PO BID PRN anxiety 03/19/22 09/15/22 loratadine 10 mg tablet 10 mg PO DAILY 05/05/22 09/15/22 buspirone 15 mg tablet 15 mg PO BID 06/08/22 09/15/22 cholecalciferol (vitamin D3) 50 50 mcg PO DAILY 07/22/22 09/15/22 mcg (2,000 unit) capsule norethindrone acetate 5 mg tablet 5 mg PO DAILY 07/22/22 09/15/22 famotidine 20 mg tablet 20 mg PO BEDTIME 07/30/22 09/15/22 levothyroxine 75 mcg capsule 75 mcg PO DAILY 07/30/22 09/15/22 Previous Rx's Medication Instructions Recorded compress.stocking,knee,reg,med #2 ea 11/19/20 albuterol sulfate 2.5 mg/3 mL 2.5 mg (3 mL) inhalation BID 30 03/17/21 (0.083 %) solution for nebulization days #180 mL spironolactone 25 mg tablet 50 mg PO DAILY #180 tabs 10/30/21 omeprazole 40 mg capsule,delayed 40 mg PO BID #180 caps 11/03/21 release furosemide 40 mg tablet 40 mg PO DAILY #180 tabs 05/03/22 amlodipine 10 mg tablet 10 mg PO QAM 90 days #90 tabs 06/08/22 montelukast 10 mg tablet 10 mg PO DAILY PRN allergy 06/18/22 (Singulair) symptoms 90 days #90 tabs hydralazine 25 mg tablet 25 mg PO .COMPLEX #360 tabs 07/01/22 labetalol 100 mg tablet 100 mg PO BID #180 tabs 07/28/22 ropinirole 0.5 mg tablet 0.5 mg PO BEDTIME #90 tabs 08/05/22 clotrimazole 10 mg barry 10 mg mucous membrane TID #42 tabs 09/04/22 doxycycline hyclate 100 mg tablet 100 mg PO BID #20 tabs 09/15/22 prednisone 10 mg tablet 10 mg PO DAILY #30 tabs 09/15/22 Allergies Allergy/AdvReac Type Severity Reaction Status Date / Time gluten [GLUTEN] Allergy Severe ABD PAIN Verified 09/09/22 08:22 Sulfa (Sulfonamide Allergy Severe Rash Verified 09/09/22 08:22 Antibiotics) [SULFA(SULFONAMIDE ANTIBIOTICS)] mirtazapine AdvReac Severe peripheral Verified 09/09/22 08:22 edema Review of Systems Review of Systems: Yes all other systems are reviewed and are negative [facility] Past Medical History Medical History Annual physical exam Asthma Asthma-COPD overlap syndrome Celiac disease Diastolic CHF Dysphagia Dyspnea Edema Hearing loss History of concussion HTN (hypertension) Hyperlipemia Hypothyroid Hypoxemia requiring supplemental oxygen Lower extremity edema Mammogram normal Nonspecific interstitial pneumonitis Orthostatic hypotension dysautonomic syndrome DANIS on CPAP Peripheral neuropathy Pneumonitis Psychiatric disorder Pulmonary hypertension Pulmonary nodule Pulmonary nodule Shortness of breath Urinary incontinence Vocal cord dysfunction Weight gain Surgical History Endometrial adenocarcinoma History of colonoscopy History of total abdominal hysterectomy and bilateral salpingo-oophorectomy Hx of esophagogastroduodenoscopy Family History Family History Father Savita cell cancer HTN (hypertension) CVD (cardiovascular disease) Mother Crohn disease Cancer Maternal Grandfather No problems noted. Maternal Grandmother No problems noted. Paternal Grandfather CVD (cardiovascular disease) Paternal Grandmother COPD (chronic obstructive pulmonary disease) Brother No problems noted. Sister No problems noted. Daughter No problems noted. Social History Social History Household Members: Spouse Housing: House Are you a primary child care attendant school to a significant other at home: No Do you presently have visiting nurse or other home services: No Alcohol intake: current Alcohol intake frequency: holidays/special occasions only Patient Tobacco Use Status: Former Tobacco user Quit Date: 1989 Tobacco use type: Cigarette Years Smoked: 2 Smoked in Last 30 Days: No e-Cigarette/Vaping Use: Never Used Second Hand Smoke Exposure: No Use of substances other than those prescribed or required for medical reasons: No Advance Directives: No Advance Directives Information Provided: No service: No Current occupational status: retired Cognitive needs: No Hearing needs: Yes Vision needs: Yes Physical Exam ED Vital Signs: Vital Signs - 24 hr 10/15/22 20:53 10/15/22 22:34 10/15/22 23:20 Temperature 98.3 F 98.2 F Pulse Rate 75 67 69 Respiratory Rate 16 12 18 Blood Pressure 118/98 H 118/49 L Pulse Oximetry 92 93 Oxygen Delivery Method Room Air Nasal Cannula Oxygen Flow Rate 2 10/16/22 03:22 Temperature 98 F Pulse Rate 77 Respiratory Rate 22 H Blood Pressure 122/67 Pulse Oximetry 95 Oxygen Delivery Method Nasal Cannula Oxygen Flow Rate 3 BMI result Body Mass Index 30.9 Appearance: Alert. Oriented X3. No acute distress. Eyes: No pallor or icterus ENT: Pharynx normal. Oral Mucosa moist Neck: Normal inspection. Neck supple. CVS: Normal heart rate and rhythm. Pulses normal. Respiratory: No respiratory distress. Equal air entry bilateral, no wheezing or rhonchi decreased air entry bilateral few crackles on the right side Abdomen: Soft and nontender. Bowel sounds are present, no mass palpable, no CVA tenderness Skin: Skin warm and dry. Normal skin color. Normal skin turgor. Extremities: No lower extremity edema. No calf tenderness Neuro: Oriented X 3. No motor deficit. No sensory deficit Medications Administered Discontinued Medications Generic Name Dose Route Start Last Admin Trade Name Freq PRN Reason Stop Dose Admin Albuterol Sulfate 5 mg 10/16/22 00:45 10/16/22 01:10 Albuterol Sulfate (0.083%) 2.5 Mg/3 Ml Vial.Neb INHALE 10/16/22 00:46 5 mg ONCE ONE Administration Albuterol Sulfate 5 mg/ 0 mg 10/15/22 22:07 10/15/22 22:30 Ipratropium [place] 0.5 mg INHALE 10/15/22 22:08 1 each ONCE ONE Administration Dexamethasone Sodium Phosphate 10 mg 10/16/22 00:45 10/16/22 02:06 Dexamethasone Sod Phosphate 10 Mg/Ml Vial IVPUSH 10/16/22 00:46 10 mg ONCE ONE Administration Sodium Chloride 1,000 mls @ 999 mls/hr 10/16/22 01:31 10/16/22 03:30 Ns IV 10/16/22 02:31 Infused .Q1H1M ONE Infusion Ceftriaxone Sodium 1 gm/ 50 mls @ 100 mls/hr 10/16/22 02:43 10/16/22 04:33 Sodium Chloride IV 10/16/22 03:12 Infused ONCE ONE Infusion Medical Decision Making Medical Decision Making [facility] Narrative: Patient with chronic lung disease/DANIS on CPAP comes or increased shortness of breath with increased cough and fever chest x-ray negative CT chest showed bronchiectasis changes at lung bases patient hypoxic dropped saturation to 88% when ambulated to the bathroom will admit patient for supportive treatment with steroids, nebulizing treatment, IV antibiotic Differential Diagnosis CHF/pneumonia/pleural effusion/PE Lab Data [facility] Lab Attestation statement: I reviewed the patient's lab results. 10/15/22 21:42 10/15/22 21:45 Labs: Lab Results 10/15/22 10/15/22 10/15/22 Range/Units 21:42 21:42 21:42 WBC 12.9 H (4.8-10.8) X10*3/uL RBC 4.42 (4.20-5.50) X10*6/uL Hgb 12.9 (12.0-16.0) g/dl Hct 39.6 (37.0-47.0) % MCV 89.6 (80.0-98.0) fL MCH 29.2 (27.0-33.0) pg MCHC 32.6 (31.0-35.0) g/dl RDW 14.6 (11.0-16.0) % Plt Count 249 (160-400) X10*3/uL MPV 11.0 (9.4-12.3) fL Immature Gran % (Auto) 0.4 (0.0-0.4) % Neut % (Auto) 77.3 H (45-73) % Lymph % (Auto) 12.0 L (20-40) % [place] % (Auto) 8.4 (2-11) % Eos % (Auto) 1.3 (0-4) % Baso % (Auto) 0.6 (0-2) % Lymph # (Auto) 1.6 (1.2-4.9) X10*3/uL [place] # (Auto) 1.1 (0.1-1.2) X10*3/uL Eos # (Auto) 0.2 (0.0-0.4) X10*3/uL Baso # (Auto) 0.1 (0.0-0.2) X10*3/uL Abs Immat Gran (auto) 0.05 H (0.00-0.03) X10*3/uL Absolute Neuts (auto) 10.0 H (2.0-8.3) x10*3/uL Absolute Nucleated RBC 0.000 (0.0-0.012) X10*3/uL Nucleated RBC % (auto) 0.0 (0.0-0.2) /100WBC Sodium (135-145) mmol/L Potassium (3.3-5.1) mmol/L Chloride (96-108) mmol/L Carbon Dioxide (22-29) mmol/L Anion Gap (12-20) BUN (9-16) mg/dL Creatinine (0.5-1.4) mg/dL Estim Creat Clear Calc Estimated GFR Random Glucose (60-115) mg/dL Lactic Acid (0.5-2.0) mmol/L Calcium (8.4-10.2) mg/dL B-Natriuretic Peptide 63 (<100) pg/mL Influenza Type A (PCR) NEGATIVE (Negative) Influenza Type B (PCR) NEGATIVE (Negative) RSV RNA Qual (PCR) NEGATIVE (Negative) SARS-CoV-2 RNA (RT-PCR) NEGATIVE (Negative) 10/15/22 10/15/22 Range/Units 21:45 22:26 WBC (4.8-10.8) X10*3/uL RBC (4.20-5.50) X10*6/uL Hgb (12.0-16.0) g/dl Hct (37.0-47.0) % MCV (80.0-98.0) fL MCH (27.0-33.0) pg MCHC (31.0-35.0) g/dl RDW (11.0-16.0) % Plt Count (160-400) X10*3/uL MPV (9.4-12.3) fL Immature Gran % (Auto) (0.0-0.4) % Neut % (Auto) (45-73) % Lymph % (Auto) (20-40) % [place] % (Auto) (2-11) % Eos % (Auto) (0-4) % Baso % (Auto) (0-2) % Lymph # (Auto) (1.2-4.9) X10*3/uL [place] # (Auto) (0.1-1.2) X10*3/uL Eos # (Auto) (0.0-0.4) X10*3/uL Baso # (Auto) (0.0-0.2) X10*3/uL Abs Immat Gran (auto) (0.00-0.03) X10*3/uL Absolute Neuts (auto) (2.0-8.3) x10*3/uL Absolute Nucleated RBC (0.0-0.012) X10*3/uL Nucleated RBC % (auto) (0.0-0.2) /100WBC Sodium 138 (135-145) mmol/L Potassium 3.8 (3.3-5.1) mmol/L Chloride 102 (96-108) mmol/L Carbon Dioxide 26 (22-29) mmol/L Anion Gap 14 (12-20) BUN 20 H (9-16) mg/dL Creatinine 1.54 H (0.5-1.4) mg/dL Estim Creat Clear Calc 33.4 Estimated GFR 33 Random Glucose 95 (60-115) mg/dL Lactic Acid 1.0 (0.5-2.0) mmol/L Calcium 8.8 (8.4-10.2) mg/dL B-Natriuretic Peptide (<100) pg/mL Influenza Type A (PCR) (Negative) Influenza Type B (PCR) (Negative) RSV RNA Qual (PCR) (Negative) SARS-CoV-2 RNA (RT-PCR) (Negative) Independent Interpretation I performed an independent interpretation of an: EKG Interpretation: Normal sinus rhythm heart rate 69 beats per minute normal interval normal axis no acute ST and no acute ischemia Radiology Impression Discussion of test interpretation with radiology: I have reviewed the radiologist's reading. Radiologist Impression: CT/CT chest wo IV con IMPRESSION: 1.? No acute pulmonary finding. Mild lower lobe bronchiectasis. 2.? Unchanged 0.3 cm right middle lobe pulmonary nodule, suggesting benign etiology. Discharge Plan Discharge Clinical Impression: Acute and chronic respiratory failure, Bronchiectasis Patient Disposition: Admitted As Inpatient
[2022-10-15 22:08] LABS: MANUAL DIFF FLAG NO
[2022-10-15 22:20] LABS: Basophils Absolute Auto 0.1 X10*3/uL (0.0-0.2); Basophils Percent Auto 0.6 % (0-2); Eosinophils Absolute Auto 0.2 X10*3/uL (0.0-0.4); Eosinophils Percent Auto 1.3 % (0-4); Hematocrit 39.6 % (37.0-47.0); Hemoglobin 12.9 g/dl (12.0-16.0); Imm Gran Abs Auto 0.05 X10*3/uL (0.00-0.03); Imm Gran Pct Auto 0.4 % (0.0-0.4); Lymphocytes Absolute Auto 1.6 X10*3/uL (1.2-4.9); Mean Corpuscular HGB Conc 32.6 g/dl (31.0-35.0); Mean Corpuscular Hemoglobin 29.2 pg (27.0-33.0); Mean Corpuscular Volume 89.6 fL (80.0-98.0); Monocytes Absolute Auto 1.1 X10*3/uL (0.1-1.2); Monocytes Percent Auto 8.4 % (2-11); Neutrophils Percent Auto 77.3 % (45-73); Platelet Count 249 X10*3/uL (160-400); Red Blood Count 4.42 X10*6/uL (4.20-5.50); Red Cell Distribution Width 14.6 % (11.0-16.0); White Blood Count 12.9 X10*3/uL (4.8-10.8)
[2022-10-15 22:25] LABS: Anion Gap 14 (12-20); Blood Urea Nitrogen 20 mg/dL (9-16); Calcium 8.8 mg/dL (8.4-10.2); Carbon Dioxide 26 mmol/L (22-29); Chloride 102 mmol/L (96-108); Creatinine Clr Calc Pharmacy 33.4; Estimated Glomerular Filt Rate 33; Glucose Random 95 mg/dL (60-115); Potassium 3.8 mmol/L (3.3-5.1); Sodium 138 mmol/L (135-145)
[2022-10-15 22:34] VITALS: PULSE 67; RESP 12; O2SAT 93
[2022-10-15 22:50] LABS: Influenza A PCR NEGATIVE (Negative); Influenza B PCR NEGATIVE (Negative); Resp Syncy Virus RNA Qual PCR NEGATIVE (Negative); SARS COV2 PCR INHOUSE NEGATIVE (Negative)
[2022-10-15 23:18] LABS: B Type Natriuretic Peptide 63 pg/mL (<100)
[2022-10-15 23:20] VITALS: BP 118/49; PULSE 69; RESP 18; TEMP 36.8; O2SAT 93
[2022-10-16] MEDS: Albuterol Sulfate (0.083%) 2.5 MG/3 ML VIAL.NEB 5 MG INHALE (01:10)
[2022-10-16] MEDS: dexAMETHasone sod phosphate 10 MG/ML VIAL IVPUSH (02:06)
[2022-10-16] MEDS: 0.9 % Sodium Chloride 1,000 ML 999 ML IV (02:07)
[2022-10-16 03:22] VITALS: BP 122/67; PULSE 77; RESP 22; TEMP 36.6; O2SAT 95
[2022-10-16] MEDS: cefTRIAXone sodium 1 GM in 0.9 % Sodium Chloride 50 ML IV (03:42)
--- NOTE | 2022-10-16 04:48 | PM.IMHP ---
History of Present Illness Date of Service: 10/16/22 Chief Complaint: Fevers This is a 72-year-old female with pertinent history of essential hypertension, congestive heart failure with preserved ejection fraction, hypothyroidism, DANIS on CPAP, mood disorder who presents to the emergency department for evaluation fever /dyspnea/cough. Patient states she was recently treated with doxycycline which she stopped about a week ago for sinusitis. On the day of presentation, patient had fevers up to 101 degree F at home with chills, intermittent productive cough and dyspnea, worse with exertion. Patient denies chills, nausea, vomiting, abdominal pain, chest discomfort, palpitations, changes in urinary or bowel habits. In the emergency department, patient was found to be hypoxemic and placed on supplemental oxygen. Imaging with bronchiectasis. Review of Systems Constitutional: Constitutional: Reports body ache(s), Reports chills, Reports fever(s) and Reports malaise Cardiovascular: Cardiovascular: Reports dyspnea on exertion Respiratory: Respiratory: Reports change in phlegm color, Reports cough and Reports dyspnea on exertion Gastrointestinal: Gastrointestinal: Reports no additional gastrointestinal complaints Genitourinary: Genitourinary: Reports no additional female genitourinary complaints [facility] Medical History Annual physical exam Asthma Asthma-COPD overlap syndrome Celiac disease Diastolic CHF Dysphagia Dyspnea Edema Hearing loss History of concussion HTN (hypertension) Hyperlipemia Hypothyroid Hypoxemia requiring supplemental oxygen Lower extremity edema Mammogram normal Nonspecific interstitial pneumonitis Orthostatic hypotension dysautonomic syndrome DANIS on CPAP Peripheral neuropathy Pneumonitis Psychiatric disorder Pulmonary hypertension Pulmonary nodule Pulmonary nodule Shortness of breath Urinary incontinence Vocal cord dysfunction Weight gain Family History Father Savita cell cancer HTN (hypertension) CVD (cardiovascular disease) Mother Crohn disease Cancer Maternal Grandfather No problems noted. Maternal Grandmother No problems noted. Paternal Grandfather CVD (cardiovascular disease) Paternal Grandmother COPD (chronic obstructive pulmonary disease) Brother No problems noted. Sister No problems noted. Daughter No problems noted. Surgical History Endometrial adenocarcinoma History of colonoscopy History of total abdominal hysterectomy and bilateral salpingo-oophorectomy Hx of esophagogastroduodenoscopy Social History Household Members: Spouse Housing: House Are you a primary palliative care specialist to a significant other at home: No Do you presently have visiting nurse or other home services: No Alcohol intake: current Alcohol intake frequency: holidays/special occasions only Patient Tobacco Use Status: Former Tobacco user Quit Date: 1989 Tobacco use type: Cigarette Years Smoked: 2 Smoked in Last 30 Days: No e-Cigarette/Vaping Use: Never Used Second Hand Smoke Exposure: No Use of substances other than those prescribed or required for medical reasons: No Advance Directives: No Advance Directives Information Provided: No service: No Current occupational status: retired Cognitive needs: No Hearing needs: Yes Vision needs: Yes Meds Allergies Allergy/AdvReac Type Severity Reaction Status Date / Time gluten [GLUTEN] Allergy Severe ABD PAIN Verified 09/09/22 08:22 Sulfa (Sulfonamide Allergy Severe Rash Verified 09/09/22 08:22 Antibiotics) [SULFA(SULFONAMIDE ANTIBIOTICS)] mirtazapine AdvReac Severe peripheral Verified 09/09/22 08:22 edema Home Medications Medication Instructions Recorded Confirmed Last Taken Type flu vacc 2020-21(66yr 0.5 ml IM DIRECTED 07/01/20 09/15/22 Unknown History up)-MF59C(PF) 60 mcg(15 mcgx4)/0.5 mL IM syringe albuterol sulfate 90 mcg/actuation 2 puff inhalation Q6H PRN 11/26/20 09/15/22 Unknown History aerosol inhaler (ProAir HFA) oxybutynin chloride 5 mg tablet 5 mg PO BEDTIME 01/01/21 09/15/22 Unknown History sertraline 100 mg tablet 200 mg PO DAILY 05/06/21 09/15/22 Unknown History trazodone 50 mg tablet 50 mg PO BEDTIME 05/21/21 09/15/22 Unknown History ketoconazole 2 % topical cream 1 appl topical 11/03/21 09/15/22 Unknown History lorazepam 1 mg tablet 1 mg PO BID PRN anxiety 03/19/22 09/15/22 Unknown History loratadine 10 mg tablet 10 mg PO DAILY 05/05/22 09/15/22 Unknown History buspirone 15 mg tablet 15 mg PO BID 06/08/22 09/15/22 Unknown History cholecalciferol (vitamin D3) 50 50 mcg PO DAILY 07/22/22 09/15/22 Unknown History mcg (2,000 unit) capsule norethindrone acetate 5 mg tablet 5 mg PO DAILY 07/22/22 09/15/22 Unknown History famotidine 20 mg tablet 20 mg PO BEDTIME 07/30/22 09/15/22 Unknown History levothyroxine 75 mcg capsule 75 mcg PO DAILY 07/30/22 09/15/22 Unknown History Physical Exam Vital Signs and Narrative: Vital Signs: Last Vital Signs Temp 98 F 10/16/22 03:22 Pulse 77 10/16/22 03:22 Resp 22 H 10/16/22 03:22 BP 122/67 10/16/22 03:22 Pulse Ox 95 10/16/22 03:22 O2 Del Method 10/16/22 03:22 O2 Flow Rate 3 10/16/22 03:22 BMI result Body Mass Index 30.9 Middle-aged male lying in bed in Mild distress on supplemental oxygen Neck supple, no JVD Regular rate and rhythm, S1-S2 heard bilateral crackles without wheezing Abdomen soft nontender, no guarding, no rigidity Patient is awake, alert and oriented to self, place, time and person ; no focal motor deficit Psych: Normal mood No pedal edema Results Labs 10/15/22 21:42 10/15/22 21:45 Labs: Laboratory Results - last 24 hr 10/15/22 10/15/22 10/15/22 21:42 21:42 21:42 MCV 89.6 MCH 29.2 MCHC 32.6 RDW 14.6 Plt Count 249 MPV 11.0 Immature Gran % (Auto) 0.4 Neut % (Auto) 77.3 H Lymph % (Auto) 12.0 L [place] % (Auto) 8.4 Eos % (Auto) 1.3 Baso % (Auto) 0.6 Lymph # (Auto) 1.6 [place] # (Auto) 1.1 Eos # (Auto) 0.2 Baso # (Auto) 0.1 Abs Immat Gran (auto) 0.05 H Absolute Neuts (auto) 10.0 H Absolute Nucleated RBC 0.000 Nucleated RBC % (auto) 0.0 Anion Gap Estim Creat Clear Calc Estimated GFR Random Glucose Lactic Acid Calcium B-Natriuretic Peptide 63 Influenza Type A (PCR) NEGATIVE Influenza Type B (PCR) NEGATIVE RSV RNA Qual (PCR) NEGATIVE SARS-CoV-2 RNA (RT-PCR) NEGATIVE 10/15/22 10/15/22 21:45 22:26 MCV MCH MCHC RDW Plt Count MPV Immature Gran % (Auto) Neut % (Auto) Lymph % (Auto) [place] % (Auto) Eos % (Auto) Baso % (Auto) Lymph # (Auto) [place] # (Auto) Eos # (Auto) Baso # (Auto) Abs Immat Gran (auto) Absolute Neuts (auto) Absolute Nucleated RBC Nucleated RBC % (auto) Anion Gap 14 Estim Creat Clear Calc 33.4 Estimated GFR 33 Random Glucose 95 Lactic Acid 1.0 Calcium 8.8 B-Natriuretic Peptide Influenza Type A (PCR) Influenza Type B (PCR) RSV RNA Qual (PCR) SARS-CoV-2 RNA (RT-PCR) Imaging Radiologist's Impressions: Impressions Chest X-Ray 10/15/22 22:17 IMPRESSION: No acute pulmonary disease. Chest CT 10/16/22 01:48 IMPRESSION: 1. No acute pulmonary finding. Mild lower lobe bronchiectasis. 2. Unchanged 0.3 cm right middle lobe pulmonary nodule, suggesting benign etiology. Fleischner guidelines were followed. Assessment and Plan (1) Bronchiectasis: Status: Acute Plan This is a 72-year-old female with pertinent history of essential hypertension, congestive heart failure with preserved ejection fraction, hypothyroidism, DANIS on CPAP, mood disorder who presents to the emergency department for evaluation fever /dyspnea/cough. #. acute hypoxemic respiratory failure secondary to sepsis in the setting of acute exacerbation of bronchiectasis: Will admit with supplemental oxygen. Initiating empiric IV antibiotics. Blood culture and sputum culture pending. Consulting Pulm, appreciate assistance. MRSA nasal screen pending. Lactic acid obtained and patient resuscitated with IV crystalloids #. acute kidney injury, stage I: Likely prerenal in the setting of above. Monitor creatinine and urine output with fluid resuscitation. Avoid nephrotoxins #. ?dysphagia: Patient does complaint of intermittent trouble swallowing. Had barium swallow in the past. Obtain records. Consulting speech for diet recommendations #. essential hypertension: Continue home antihypertensives #. congestive heart failure with preserved ejection fraction: On diuretics #. mood disorder: Continue home mood stabilizers #. DANIS: Continue CPAP at bedtime med rec pending DVT prophylaxis: Lovenox 40 mg daily Full code Admit as inpatient and will require two night minimum hospital stay for IV antibiotics and supplemental oxygen Time Spent With Patient Time: Total time managing care of this patient today ____ minutes. Quality Stroke Does the patient have a stroke diagnosis?: No VTE Prior VTE?: No VTE Risk Level:: Medical - moderate - high VTE Device Contraindication: Treatment Not Indicated VTE Drug Contraindication: N/A - Med Ordered
--- NOTE | 2022-10-16 04:59 | ECG_ITS ---
Test Reason : SOB Blood Pressure : / mmHG Vent. Rate : 069 BPM Atrial Rate : 069 BPM P-R Int : 192 ms QRS Dur : 076 ms QT Int : 404 ms P-R-T Axes : 058 015 060 degrees QTc Int : 432 ms Normal sinus rhythm Normal ECG When compared with ECG of 14-DEC-2020 09:09, No significant change was found Referred By: Bryant Negro Electronically Signed By:Alex Joshua
[2022-10-16 05:12] VITALS: BP 110/74; PULSE 75; RESP 25; TEMP 36.6; O2SAT 94
[2022-10-16] MEDS: Enoxaparin Sodium 40 MG/0.4 ML SYRINGE SUBCUT (06:01)
[2022-10-16] MEDS: cefEPime HCl 2 GM in 0.9 % Sodium Chloride 50 ML IV (06:01)
[2022-10-16 06:12] VITALS: BP 134/50; PULSE 75; RESP 20; TEMP 36.8; O2SAT 94
[2022-10-16 06:52] LABS: Basophils Percent Auto 0.4 % (0-2); Eosinophils Percent Auto 0.2 % (0-4); Hematocrit 39.5 % (37.0-47.0); Hemoglobin 13.1 g/dl (12.0-16.0); Imm Gran Abs Auto 0.05 X10*3/uL (0.00-0.03); Imm Gran Pct Auto 0.5 % (0.0-0.4); Lymphocytes Absolute Auto 0.7 X10*3/uL (1.2-4.9); Lymphocytes Percent Auto 7.1 % (20-40); MANUAL DIFF FLAG SCAN; Mean Corpuscular HGB Conc 33.2 g/dl (31.0-35.0); Mean Corpuscular Hemoglobin 29.7 pg (27.0-33.0); Mean Corpuscular Volume 89.6 fL (80.0-98.0); Mean Platelet Volume 10.7 fL (9.4-12.3); Monocytes Absolute Auto 0.2 X10*3/uL (0.1-1.2); Monocytes Percent Auto 1.6 % (2-11); Neutrophils Percent Auto 90.2 % (45-73); Platelet Count 240 X10*3/uL (160-400); Red Blood Count 4.41 X10*6/uL (4.20-5.50); Red Cell Distribution Width 14.5 % (11.0-16.0); SCAN SMEAR FLAG 1
[2022-10-16 07:06] VITALS: BP 129/63; PULSE 88; RESP 25; TEMP 36.7; O2SAT 92
[2022-10-16 07:11] LABS: Anion Gap 15 (12-20); Blood Urea Nitrogen 17 mg/dL (9-16); Calcium 8.9 mg/dL (8.4-10.2); Carbon Dioxide 23 mmol/L (22-29); Chloride 106 mmol/L (96-108); Creatinine Clr Calc Pharmacy 54.1; Estimated Glomerular Filt Rate 58; Glucose Random 159 mg/dL (60-115); Potassium 3.6 mmol/L (3.3-5.1); Sodium 140 mmol/L (135-145)
[2022-10-16 07:21] LABS: SLIDE REVIEW VERIFIED
--- NOTE | 2022-10-16 07:51 | PHA.MEDREC ---
Pharmacy Consult ? Medication Reconciliation Pharmacy has completed the medication reconciliation.
[2022-10-16] MEDS: 0.9 % Sodium Chloride Flush 3 ML SYRINGE IVFLUSH (08:54)
[2022-10-16] MEDS: predniSONE 20 MG TABLET 40 MG PO (08:54)
[2022-10-16 08:58] VITALS: PULSE 84; RESP 17; O2SAT 96
[2022-10-16] MEDS: Spironolactone 25 MG TABLET 50 MG PO (10:12)
[2022-10-16] MEDS: Montelukast Sodium 10 MG TABLET PO (10:12)
[2022-10-16] MEDS: busPIRone HCl 5 MG TABLET 15 MG PO (10:12)
[2022-10-16] MEDS: Gabapentin 300 MG CAPSULE PO (10:13)
[2022-10-16] MEDS: amLODIPine Besylate 10 MG TABLET PO (10:13)
[2022-10-16] MEDS: Omeprazole 40 MG CAPSULE.DR PO (10:13)
[2022-10-16] MEDS: Levothyroxine Sodium 75 MCG TABLET PO (10:13)
[2022-10-16] MEDS: Labetalol HCL 100 MG TABLET PO (10:13)
[2022-10-16] MEDS: Azithromycin 500 MG TABLET PO (10:13)
[2022-10-16] MEDS: Sertraline HCL 100 MG TABLET PO (10:13)
[2022-10-16] MEDS: hydrALAZINE HCl 25 MG TABLET PO (10:14)
[2022-10-16] MEDS: Furosemide 40 MG/4 ML VIAL IVPUSH (10:14)
--- NOTE | 2022-10-16 10:19 | P.PNIM_ITS ---
Subjective Subjective Date of Service: 10/16/22 Interval History: sob Physical Exam Vital Signs: Vital Signs: Last Vital Signs Temp 98.0 F 10/16/22 07:06 Pulse 84 10/16/22 08:58 Resp 17 10/16/22 08:58 BP 129/63 10/16/22 07:06 Pulse Ox 92 10/16/22 07:06 O2 Del Method 10/16/22 07:06 O2 Flow Rate 3 10/16/22 07:06 BMI result Body Mass Index 30.9 General: dyspneic Resp: CTA bilateral, no accessory muscles used Objective Data Active Medications Acetaminophen (Acetaminophen 325 Mg Tablet) 650 mg PO Q6H PRN PRN Reason: Pain, Mild (Pain Scale 1-3) Amlodipine Besylate (Amlodipine Besylate 10 Mg Tablet) 10 mg PO DAILY [facility]; Protocol Last Admin: 10/16/22 10:13 Dose: 10 mg Documented By: SELMA Azithromycin (Azithromycin 500 Mg Tablet) 500 mg PO Q24H [facility] Last Admin: 10/16/22 10:13 Dose: 500 mg Documented By: SELMA Benzonatate (Benzonatate 100 Mg Capsule) 100 mg PO TID PRN PRN Reason: Cough Buspirone HCl (Buspirone Hcl 5 Mg Tablet) 15 mg PO BID [facility] Last Admin: 10/16/22 10:12 Dose: 15 mg Documented By: SELMA Albuterol Sulfate 2.5 mg/ (Ipratropium [place] 0.5 mg) 0 mg INHALE RQ4H WHILE AWAKE PRN PRN Reason: sob Last Admin: 10/16/22 08:57 Dose: 2.5 each Documented By: KVNG Enoxaparin Sodium (Enoxaparin Sodium 40 Mg/0.4 Ml Syringe) 40 mg SUBCUT Q24H [facility] Last Admin: 10/16/22 06:01 Dose: 40 mg Documented By: JEN Furosemide (Furosemide 40 Mg/4 Ml Vial) 40 mg IVPUSH BID@0900,1800 [facility]; Protocol Last Admin: 10/16/22 10:14 Dose: 40 mg Documented By: SELMA Gabapentin (Gabapentin 300 Mg Capsule) 300 mg PO DAILY [facility] Last Admin: 10/16/22 10:13 Dose: 300 mg Documented By: SELMA Hydralazine HCl (Hydralazine Hcl 25 Mg Tablet) 25 mg PO DAILY [facility]; Protocol Last Admin: 10/16/22 10:14 Dose: 25 mg Documented By: SELMA Hydralazine HCl (Hydralazine Hcl 25 Mg Tablet) 75 mg PO BEDTIME [facility]; Protocol Labetalol HCl (Labetalol Hcl 100 Mg Tablet) 100 mg PO BID [facility]; Protocol Last Admin: 10/16/22 10:13 Dose: 100 mg Documented By: SELMA Levothyroxine Sodium (Levothyroxine Sodium 75 Mcg Tablet) 75 mcg PO DAILY@0600 [facility] Last Admin: 10/16/22 10:13 Dose: 75 mcg Documented By: SELMA Lorazepam (Lorazepam 1 Mg Tablet) 1 mg PO BID PRN PRN Reason: anxiety Melatonin (Melatonin 3 Mg Tablet) 6 mg PO BEDTIME PRN PRN Reason: Insomnia Montelukast Sodium (Montelukast Sodium 10 Mg Tablet) 10 mg PO BEDTIME [facility] Last Admin: 10/16/22 10:12 Dose: 10 mg Documented By: SELMA Non-Formulary Medication (Oxybutynin Chloride) 5 mg PO BEDTIME [facility] Omeprazole (Omeprazole 40 Mg Capsule.Dr) 40 mg PO BID [facility] Last Admin: 10/16/22 10:13 Dose: 40 mg Documented By: SELMA Ondansetron HCl (Ondansetron Hcl 4 Mg/2 Ml Vial) 4 mg IVPUSH Q8H PRN PRN Reason: Nausea and Vomiting Pharmacy Consult (Consult Rx Perform Med Rec) 1 each MISCELLANE ONCE PRN PRN Reason: Consult order Prednisone (Prednisone 20 Mg Tablet) 40 mg PO DAILY [facility] Last Admin: 10/16/22 08:54 Dose: 40 mg Documented By: SELMA Ropinirole HCl (Ropinirole Hcl 0.5 Mg Tablet) 0.5 mg PO BEDTIME [facility] Sertraline HCl (Sertraline Hcl 100 Mg Tablet) 100 mg PO DAILY [facility] Last Admin: 10/16/22 10:13 Dose: 100 mg Documented By: SELMA Sodium Chloride (0.9 % Sodium Chloride Flush 3 Ml Syringe) [facility] Last Admin: 10/16/22 08:54 Dose: 3 ml Documented By: SELMA Spironolactone (Spironolactone 25 Mg Tablet) 50 mg PO DAILY [facility]; Protocol Last Admin: 10/16/22 10:12 Dose: 50 mg Documented By: SELMA Trazodone HCl (Trazodone Hcl 50 Mg Tablet) 50 mg PO BEDTIME [facility] Labs 10/16/22 06:42 10/16/22 06:42 Labs: Laboratory Results - last 24 hr 10/15/22 10/15/22 10/15/22 21:42 21:42 21:42 MCV 89.6 MCH 29.2 MCHC 32.6 RDW 14.6 Plt Count 249 MPV 11.0 Immature Gran % (Auto) 0.4 Neut % (Auto) 77.3 H Lymph % (Auto) 12.0 L [place] % (Auto) 8.4 Eos % (Auto) 1.3 Baso % (Auto) 0.6 Lymph # (Auto) 1.6 [place] # (Auto) 1.1 Eos # (Auto) 0.2 Baso # (Auto) 0.1 Abs Immat Gran (auto) 0.05 H Absolute Neuts (auto) 10.0 H Absolute Nucleated RBC 0.000 Nucleated RBC % (auto) 0.0 Smear Tech's Comments Anion Gap Estim Creat Clear Calc Estimated GFR Random Glucose Lactic Acid Calcium B-Natriuretic Peptide 63 Influenza Type A (PCR) NEGATIVE Influenza Type B (PCR) NEGATIVE RSV RNA Qual (PCR) NEGATIVE SARS-CoV-2 RNA (RT-PCR) NEGATIVE 10/15/22 10/15/22 10/16/22 21:45 22:26 06:42 MCV 89.6 MCH 29.7 MCHC 33.2 RDW 14.5 Plt Count 240 MPV 10.7 Immature Gran % (Auto) 0.5 H Neut % (Auto) 90.2 H Lymph % (Auto) 7.1 L [place] % (Auto) 1.6 L Eos % (Auto) 0.2 Baso % (Auto) 0.4 Lymph # (Auto) 0.7 L [place] # (Auto) 0.2 Eos # (Auto) 0.0 Baso # (Auto) 0.0 Abs Immat Gran (auto) 0.05 H Absolute Neuts (auto) 9.0 H Absolute Nucleated RBC 0.000 Nucleated RBC % (auto) 0.0 Smear Tech's Comments VERIFIED Anion Gap 14 Estim Creat Clear Calc 33.4 Estimated GFR 33 Random Glucose 95 Lactic Acid 1.0 Calcium 8.8 B-Natriuretic Peptide Influenza Type A (PCR) Influenza Type B (PCR) RSV RNA Qual (PCR) SARS-CoV-2 RNA (RT-PCR) 10/16/22 06:42 MCV MCH MCHC RDW Plt Count MPV Immature Gran % (Auto) Neut % (Auto) Lymph % (Auto) [place] % (Auto) Eos % (Auto) Baso % (Auto) Lymph # (Auto) [place] # (Auto) Eos # (Auto) Baso # (Auto) Abs Immat Gran (auto) Absolute Neuts (auto) Absolute Nucleated RBC Nucleated RBC % (auto) Smear Tech's Comments Anion Gap 15 Estim Creat Clear Calc 54.1 Estimated GFR 58 Random Glucose 159 H Lactic Acid Calcium 8.9 B-Natriuretic Peptide Influenza Type A (PCR) Influenza Type B (PCR) RSV RNA Qual (PCR) SARS-CoV-2 RNA (RT-PCR) Assessment and Plan (1) Bronchiectasis: Status: Acute Plan 72F PMH essential hypertension, congestive heart failure with preserved ejection fraction, hypothyroidism, DANIS on CPAP, mood disorder who presented with fever, hypoxia, sob acute hypoxemic respiratory failure secondary to sepsis in the setting of acute exacerbation of bronchiectasis steroids, nebs, azithro pulm following acute on chronic diastolic chf iv lasix GENNY resolved dysphagia MEDICATION AIDE HTN hydralazine, labetolol, aldactone mood disorder zoloft, buspar, ativan DANIS CPAP at bedtime DVT prophylaxis: Lovenox 40 mg daily Full code reason for continued hospitalization:diuresis Time Spent With Patient Time: Total time managing care of this patient today ____ minutes. Quality Stroke Does the patient have a stroke diagnosis?: No VTE Prior VTE?: No VTE Risk Level:: Medical - moderate - high VTE Device Contraindication: Treatment Not Indicated VTE Drug Contraindication: N/A - Med Ordered
--- NOTE | 2022-10-16 10:57 | P.CONPL_ITS ---
History of Present Illness History of Present Illness Consult date: 10/16/22 Requesting physician: Bina Winkler Chief complaint: Fever Narrative: 72-year-old lady with underlying history of bronchiectasis, follows with Dr. Ford, also DANIS on CPAP and grade 2 diastolic dysfunction admitted on 10/16/2022 with several day history of fever with chills and intermittent cough productive of small amount of sputum, also dyspnea that is worse with exertion and 5-6 lb weight gain. Now requiring 2-3 L of supplemental oxygen to maintain normal oximetry. She was started on empiric antibiotics and systemic glucocorticoids and pulmonary evaluation was requested. Her CT chest showed known underlying mild lower lobe bronchiectasis, but no significant pneumonic process. Patient states that her current cough is not similar to prior exacerbation of bronchiectasis. She is come complaining worsening lower extremity edema. Patient also recently been treated with a course of doxycycline for sinusitis. Review of Systems Constitutional: Constitutional: Denies daytime sleepiness, Denies excessive sweating, Denies fatigue, Denies fever(s), Denies lethargy, Denies malaise, Denies night sweats, Denies snoring and Denies weight loss Eyes: Eyes: Denies blurry vision and Denies itchy eyes ENT: Denies nasal congestion, Denies post nasal drip, Denies sinus pain, Denies sinus pressure and Denies other ( Thrush) Cardiovascular: Cardiovascular: Denies chest pain, Denies pedal edema, Reports leg edema, Denies dyspnea, Reports dyspnea on exertion, Denies orthopnea and Denies paroxysmal nocturnal dyspnea Respiratory: Respiratory: Reports cough, Denies hemoptysis, Denies excessive phlegm production, Denies dyspnea, Reports dyspnea on exertion, Denies snoring and Denies wheezing Gastrointestinal: Gastrointestinal: Denies abdominal pain and Denies heartburn Musculoskeletal: Musculoskeletal: Denies myalgias, Denies arthralgias and Denies joint swelling Integumentary/Breasts: Skin/Breast: Denies rash Neurologic: Denies memory loss and Denies seizure-like activity Psychiatric: Psychiatric: Denies abnormal sleep pattern, Denies anxiety and Denies memory loss Endocrine: Endocrine: Denies excessive sweating, Denies fatigue and Denies heat intolerance Hematologic/Lymphatic: Hematologic/Lymphatic: Denies easy bruising Allergic/Immunologic: Allergic/Immunologic: Denies itchy eyes, Denies seasonal rhinorrhea and Denies wheezing [facility] Past Medical History Medical History Annual physical exam Asthma Asthma-COPD overlap syndrome Celiac disease Diastolic CHF Dysphagia Dyspnea Edema Hearing loss History of concussion HTN (hypertension) Hyperlipemia Hypothyroid Hypoxemia requiring supplemental oxygen Lower extremity edema Mammogram normal Nonspecific interstitial pneumonitis Orthostatic hypotension dysautonomic syndrome DANIS on CPAP Peripheral neuropathy Pneumonitis Psychiatric disorder Pulmonary hypertension Pulmonary nodule Pulmonary nodule Shortness of breath Urinary incontinence Vocal cord dysfunction Weight gain Family History Family History Father Savita cell cancer HTN (hypertension) CVD (cardiovascular disease) Mother Crohn disease Cancer Maternal Grandfather No problems noted. Maternal Grandmother No problems noted. Paternal Grandfather CVD (cardiovascular disease) Paternal Grandmother COPD (chronic obstructive pulmonary disease) Brother No problems noted. Sister No problems noted. Daughter No problems noted. Surgical History Surgical History Endometrial adenocarcinoma History of colonoscopy History of total abdominal hysterectomy and bilateral salpingo-oophorectomy Hx of esophagogastroduodenoscopy Social History Social History Household Members: Spouse Housing: House Are you a primary care information associate to a significant other at home: No Do you presently have visiting nurse or other home services: No Alcohol intake: current Alcohol intake frequency: holidays/special occasions only Patient Tobacco Use Status: Former Tobacco user Quit Date: 1989 Tobacco use type: Cigarette Years Smoked: 2 Smoked in Last 30 Days: No e-Cigarette/Vaping Use: Never Used Second Hand Smoke Exposure: No Use of substances other than those prescribed or required for medical reasons: No Advance Directives: No Advance Directives Information Provided: No Nutrition Risks: Difficulty swallowing service: No Current occupational status: retired Cognitive needs: No Hearing needs: Yes Vision needs: Yes Meds Allergies Allergy/AdvReac Type Severity Reaction Status Date / Time gluten [GLUTEN] Allergy Severe ABD PAIN Verified 09/09/22 08:22 Sulfa (Sulfonamide Allergy Severe Rash Verified 09/09/22 08:22 Antibiotics) [SULFA(SULFONAMIDE ANTIBIOTICS)] mirtazapine AdvReac Severe peripheral Verified 09/09/22 08:22 edema Active Medications: Current Medications Acetaminophen (Acetaminophen 325 Mg Tablet) 650 mg PO Q6H PRN PRN Reason: Pain, Mild (Pain Scale 1-3) Amlodipine Besylate (Amlodipine Besylate 10 Mg Tablet) 10 mg PO DAILY [facility]; Protocol Last Admin: 10/16/22 10:13 Dose: 10 mg Azithromycin (Azithromycin 500 Mg Tablet) 500 mg PO Q24H [facility] Last Admin: 10/16/22 10:13 Dose: 500 mg Benzonatate (Benzonatate 100 Mg Capsule) 100 mg PO TID PRN PRN Reason: Cough Buspirone HCl (Buspirone Hcl 5 Mg Tablet) 15 mg PO BID [facility] Last Admin: 10/16/22 10:12 Dose: 15 mg Albuterol Sulfate 2.5 mg/ (Ipratropium [place] 0.5 mg) 0 mg INHALE RQ4H WHILE AWAKE PRN PRN Reason: sob Last Admin: 10/16/22 08:57 Dose: 2.5 each Enoxaparin Sodium (Enoxaparin Sodium 40 Mg/0.4 Ml Syringe) 40 mg SUBCUT Q24H [facility] Last Admin: 10/16/22 06:01 Dose: 40 mg Furosemide (Furosemide 40 Mg/4 Ml Vial) 40 mg IVPUSH BID@0900,1800 [facility]; Protocol Last Admin: 10/16/22 10:14 Dose: 40 mg Gabapentin (Gabapentin 300 Mg Capsule) 300 mg PO DAILY [facility] Last Admin: 10/16/22 10:13 Dose: 300 mg Hydralazine HCl (Hydralazine Hcl 25 Mg Tablet) 25 mg PO DAILY [facility]; Protocol Last Admin: 10/16/22 10:14 Dose: 25 mg Hydralazine HCl (Hydralazine Hcl 25 Mg Tablet) 75 mg PO BEDTIME [facility]; Protocol Labetalol HCl (Labetalol Hcl 100 Mg Tablet) 100 mg PO BID [facility]; Protocol Last Admin: 10/16/22 10:13 Dose: 100 mg Levothyroxine Sodium (Levothyroxine Sodium 75 Mcg Tablet) 75 mcg PO DAILY@0600 [facility] Last Admin: 10/16/22 10:13 Dose: 75 mcg Lorazepam (Lorazepam 1 Mg Tablet) 1 mg PO BID PRN PRN Reason: anxiety Melatonin (Melatonin 3 Mg Tablet) 6 mg PO BEDTIME PRN PRN Reason: Insomnia Montelukast Sodium (Montelukast Sodium 10 Mg Tablet) 10 mg PO BEDTIME [facility] Last Admin: 10/16/22 10:12 Dose: 10 mg Non-Formulary Medication (Oxybutynin Chloride) 5 mg PO BEDTIME [facility] Omeprazole (Omeprazole 40 Mg Capsule.Dr) 40 mg PO BID [facility] Last Admin: 10/16/22 10:13 Dose: 40 mg Ondansetron HCl (Ondansetron Hcl 4 Mg/2 Ml Vial) 4 mg IVPUSH Q8H PRN PRN Reason: Nausea and Vomiting Pharmacy Consult (Consult Rx Perform Med Rec) 1 each MISCELLANE ONCE PRN PRN Reason: Consult order Prednisone (Prednisone 20 Mg Tablet) 40 mg PO DAILY [facility] Last Admin: 10/16/22 08:54 Dose: 40 mg Ropinirole HCl (Ropinirole Hcl 0.5 Mg Tablet) 0.5 mg PO BEDTIME [facility] Sertraline HCl (Sertraline Hcl 100 Mg Tablet) 100 mg PO DAILY [facility] Last Admin: 10/16/22 10:13 Dose: 100 mg Sodium Chloride (0.9 % Sodium Chloride Flush 3 Ml Syringe) 3 ml IVFLUSH QSHIFT [facility] Last Admin: 10/16/22 08:54 Dose: 3 ml Spironolactone (Spironolactone 25 Mg Tablet) 50 mg PO DAILY [facility]; Protocol Last Admin: 10/16/22 10:12 Dose: 50 mg Trazodone HCl (Trazodone Hcl 50 Mg Tablet) 50 mg PO BEDTIME [facility] Home Medications Medication Instructions Recorded Confirmed Last Taken Type albuterol sulfate 90 mcg/actuation 2 puff inhalation Q6H PRN Wheezing 11/26/20 10/16/22 Unknown History aerosol inhaler (ProAir HFA) oxybutynin chloride 5 mg tablet 5 mg PO BEDTIME 01/01/21 10/16/22 Unknown Histo ry sertraline 100 mg tablet 100 mg PO DAILY 05/06/21 10/16/22 Unknown History trazodone 50 mg tablet 50 mg PO BEDTIME 05/21/21 10/16/22 Unknown History lorazepam 1 mg tablet 1 mg PO BID PRN anxiety 03/19/22 10/16/22 Unknown History buspirone 15 mg tablet 15 mg PO BID 06/08/22 10/16/22 Unknown History levothyroxine 75 mcg capsule 75 mcg PO DAILY 07/30/22 10/16/22 Unknown History gabapentin 300 mg capsule 300 mg PO DAILY 10/16/22 10/16/22 Unknown History hydralazine 25 mg tablet 25 mg PO DAILY 10/16/22 10/16/22 Unknown History hydralazine 25 mg tablet 75 mg PO BEDTIME 10/16/22 10/16/22 Unknown History Physical Exam Vital Signs: Vital Signs: Last Vital Signs Temp 98.0 F 10/16/22 07:06 Pulse 84 10/16/22 08:58 Resp 17 10/16/22 08:58 BP 129/63 10/16/22 07:06 Pulse Ox 92 10/16/22 07:06 O2 Del Method 10/16/22 07:06 O2 Flow Rate 3 10/16/22 07:06 BMI result Body Mass Index 30.9 Const: General: no acute distress and alert Nutritional Appearance: not obese Orientation/consciousness: Other orientation findings ( oriented) HEENT: Head: Yes atraumatic Mouth: no other ( thrush) Throat: No postnasal drainage Eyes: General: appearance normal, both eyes and all related structures Sclerae: sclerae normal EOM: EOMs intact bilaterally Neck: Neck: Yes supple Lymphatic: no lymphadenopathy noted Resp: Effort & Inspection: normal respiratory effort and no use of accessory muscles Auscultation: clear to auscultation bilaterally Cardio: Rate: regular rate Rhythm: regular rhythm Heart sounds: no gallops, no murmurs and no rubs GI: Palpation (GI): Soft to palpation and Other GI palpation findings present ( nontender) Skin: General skin exam: other ( warm) Rashes: no rashes Extrem: General: No clubbing, No cyanosis and Yes edema ( 1+ bilateral) Results Laboratory Findings 10/16/22 06:42 10/16/22 06:42 Abnormal lab findings: Abnormal Labs 10/15/22 10/15/22 10/16/22 21:42 21:45 06:42 WBC 12.9 H Immature Gran % (Auto) 0.5 H Neut % (Auto) 77.3 H 90.2 H Lymph % (Auto) 12.0 L 7.1 L [place] % (Auto) 1.6 L Lymph # (Auto) 0.7 L Abs Immat Gran (auto) 0.05 H 0.05 H Absolute Neuts (auto) 10.0 H 9.0 H BUN 20 H Creatinine 1.54 H Random Glucose 10/16/22 06:42 WBC Immature Gran % (Auto) Neut % (Auto) Lymph % (Auto) [place] % (Auto) Lymph # (Auto) Abs Immat Gran (auto) Absolute Neuts (auto) BUN 17 H Creatinine Random Glucose 159 H Assessment and Plan (1) Acute respiratory failure with hypoxia: Status: Acute (2) Bronchiectasis: Status: Acute (3) Diastolic CHF: Qualifiers: Heart failure chronicity: acute on chronic Qualified Code(s): I50.33 - Acute on chronic diastolic (congestive) heart failure Status: Acute Plan Impression: 72-year-old lady admitted with acute hypoxic respiratory failure, with 5-6 lb weight gain over several days, mild cough, and underlying bronchiectasis. At this time and appears his symptoms are mostly related to exacerbation of underlying diastolic congestive heart failure. Recommendations: Consider switching broad-spectrum antibiotics to azithromycin for anti-inflammatory effect. No evidence of acute bronchiectasis exacerbation at this time. Consider diuresis. Agree with brief taper of systemic glucocorticoids. Recommendations discussed with Dr. Harley. Time Spent With Patient Time: Total time managing care of this patient today ____ minutes. Procedures Date of Service Date of Service: 10/16/22
--- NOTE | 2022-10-16 12:42 | MHC.CM.PN ---
pt lives with her is independent had no servceis covid vax x 3 has own ride home
--- NOTE | 2022-10-16 15:28 | PC.NURSE ---
WALKING O2 SAT 93 TO 95% ON ROOM AIR
--- NOTE | 2022-10-16 16:54 | PC.NURSE ---
oob to br doing well on room air tolerating po pt states she feels like she could go home dr cortés aware
--- NOTE | 2022-10-16 16:55 | P.DS_ITS ---
DS: Providers Provider Date of Service: 10/16/22 Date of admission: 10/16/22 04:46 Primary care physician: Celestina Zimmerman MD Consults: 10/16/22 04:56 Consult to Pulmonology Routine Consulting Provider: [facility] Reason for consultation: bronchiectasis DS: Diagnosis Discharge Diagnosis (1) Acute respiratory failure with hypoxia: Status: Acute (2) Bronchiectasis: Status: Acute (3) Diastolic CHF: Status: Acute DS: Summary Hospital Course Hospital Course: from initial hpi: This is a 72-year-old female with pertinent history of essential hypertension, congestive heart failure with preserved ejection fraction, hypothyroidism, DANIS on CPAP, mood disorder who presents to the emergency department for evaluation fever /dyspnea/cough.? Patient states she was recently treated with doxycycline which she stopped about a week ago for sinusitis.? On the day of presentation, patient had fevers up to 101 degree F at home with chills, intermittent productive cough and dyspnea, worse with exertion.? Patient denies chills, nausea, vomiting, abdominal pain, chest discomfort, palpitations, changes in uri nary or bowel habits.? In the emergency department, patient was found to be hypoxemic and placed on supplemental oxygen.? Imaging with bronchiectasis. hospital course: patient was admitted for acute hypoxic respiratory failure. initially treated as acute exacerbation of bronchiectasis with steroids, antibiotics, nebs. Was seen by Pulmonary felt this was more likely acute on chronic diastolic CHF. Patient responded very well to IV Lasix and was weaned off oxygen and ambulating on room air with minimal symptoms. Patient is feeling better will be discharged home. For acute kidney injury this resolved. For hypertension she will continue on hydralazine, labetalol, docked own. For mood disorder she will continue on Zoloft, buspar, Ativan. for DANIS CPAP will be used at night. Time Spent with Patient Time attestation: Total time managing care of this patient today ____ minutes. Discharge coordination time: Greater than 30 minutes Quality: Safe Use of Opioids Does Pt have an Active Cancer Diagnosis on the Problem List?: No Quality: Stroke Does the patient have a stroke diagnosis?: No Physical Exam Vital Signs: Vital Signs: Last Vital Signs Temp 98.0 F 10/16/22 07:06 Pulse 84 10/16/22 08:58 Resp 17 10/16/22 08:58 BP 129/63 10/16/22 07:06 Pulse Ox 92 10/16/22 07:06 O2 Del Method 10/16/22 07:06 O2 Flow Rate 3 10/16/22 07:06 BMI result Body Mass Index 30.9 General: AO X 3, no acute distress Resp: CTA bilateral, no accessory muscles used CVS: S1,S2,RRR GI: soft, non tender, non distended Neuro: motor grossly intact, alert Psych: appropriate affect, appropriate insight DS: Data Data Completed and Pending Labs on day of discharge: Laboratory Results - last 24 hr 10/15/22 10/15/22 10/15/22 21:42 21:42 21:42 WBC 12.9 H RBC 4.42 Hgb 12.9 Hct 39.6 MCV 89.6 MCH 29.2 MCHC 32.6 RDW 14.6 Plt Count 249 MPV 11.0 Immature Gran % (Auto) 0.4 Neut % (Auto) 77.3 H Lymph % (Auto) 12.0 L [place] % (Auto) 8.4 Eos % (Auto) 1.3 Baso % (Auto) 0.6 Lymph # (Auto) 1.6 [place] # (Auto) 1.1 Eos # (Auto) 0.2 Baso # (Auto) 0.1 Abs Immat Gran (auto) 0.05 H Absolute Neuts (auto) 10.0 H Absolute Nucleated RBC 0.000 Nucleated RBC % (auto) 0.0 Smear Tech's Comments Sodium Potassium Chloride Carbon Dioxide Anion Gap BUN Creatinine Estim Creat Clear Calc Estimated GFR Random Glucose Lactic Acid Calcium B-Natriuretic Peptide 63 Influenza Type A (PCR) NEGATIVE Influenza Type B (PCR) NEGATIVE RSV RNA Qual (PCR) NEGATIVE SARS-CoV-2 RNA (RT-PCR) NEGATIVE 10/15/22 10/15/22 10/16/22 21:45 22:26 06:42 WBC 10.0 RBC 4.41 Hgb 13.1 Hct 39.5 MCV 89.6 MCH 29.7 MCHC 33.2 RDW 14.5 Plt Count 240 MPV 10.7 Immature Gran % (Auto) 0.5 H Neut % (Auto) 90.2 H Lymph % (Auto) 7.1 L [place] % (Auto) 1.6 L Eos % (Auto) 0.2 Baso % (Auto) 0.4 Lymph # (Auto) 0.7 L [place] # (Auto) 0.2 Eos # (Auto) 0.0 Baso # (Auto) 0.0 Abs Immat Gran (auto) 0.05 H Absolute Neuts (auto) 9.0 H Absolute Nucleated RBC 0.000 Nucleated RBC % (auto) 0.0 Smear Tech's Comments VERIFIED Sodium 138 Potassium 3.8 Chloride 102 Carbon Dioxide 26 Anion Gap 14 BUN 20 H Creatinine 1.54 H Estim Creat Clear Calc 33.4 Estimated GFR 33 Random Glucose 95 Lactic Acid 1.0 Calcium 8.8 B-Natriuretic Peptide Influenza Type A (PCR) Influenza Type B (PCR) RSV RNA Qual (PCR) SARS-CoV-2 RNA (RT-PCR) 10/16/22 06:42 WBC RBC Hgb Hct MCV MCH MCHC RDW Plt Count MPV Immature Gran % (Auto) Neut % (Auto) Lymph % (Auto) [place] % (Auto) Eos % (Auto) Baso % (Auto) Lymph # (Auto) [place] # (Auto) Eos # (Auto) Baso # (Auto) Abs Immat Gran (auto) Absolute Neuts (auto) Absolute Nucleated RBC Nucleated RBC % (auto) Smear Tech's Comments Sodium 140 Potassium 3.6 Chloride 106 Carbon Dioxide 23 Anion Gap 15 BUN 17 H Creatinine 0.95 Estim Creat Clear Calc 54.1 Estimated GFR 58 Random Glucose 159 H Lactic Acid Calcium 8.9 B-Natriuretic Peptide Influenza Type A (PCR) Influenza Type B (PCR) RSV RNA Qual (PCR) SARS-CoV-2 RNA (RT-PCR) Discharge Plan Discharge Anticipated Discharge Date/Time: 10/16/22 16:53 Patient Disposition: Home, Self-Care Discharge Diagnosis: chf Referrals: Celestina Zimmerman MD [Primary Care Provider] - 1 Week Discharge Medications: Continued spironolactone 25 mg tablet 50 mg PO DAILY Qty: 180 3RF furosemide 40 mg tablet 40 mg PO DAILY Qty: 180 0RF montelukast [Singulair] 10 mg tablet 10 mg PO DAILY PRN (Reason: allergy symptoms) 90 Days Qty: 90 3RF labetalol 100 mg tablet 100 mg PO BID Qty: 180 3RF ropinirole 0.5 mg tablet 0.5 mg PO BEDTIME Qty: 90 2RF lorazepam 1 mg tablet 1 mg PO BID PRN (Reason: anxiety) hydralazine 25 mg tablet 75 mg PO BEDTIME hydralazine 25 mg tablet 25 mg PO DAILY gabapentin 300 mg capsule 300 mg PO DAILY sertraline 100 mg tablet 100 mg PO DAILY omeprazole 40 mg capsule,delayed release(DR/EC) 40 mg PO BID Qty: 180 3RF (DME) compress.stocking,knee,reg,med Misc See Rx Instructions .ROUTE .MEDSUPPLY Qty: 2 0RF Rx Instructions: apply in the am and remove in the pm albuterol sulfate [ProAir HFA] 90 mcg/actuation HFA aerosol inhaler 2 puff inhalation Q6H PRN (Reason: Wheezing) albuterol sulfate 2.5 mg /3 mL (0.083 %) solution for nebulization 2.5 mg inhalation BID 30 Days Qty: 180 11RF trazodone 50 mg tablet 50 mg PO BEDTIME oxybutynin chloride 5 mg tablet 5 mg PO BEDTIME buspirone 15 mg tablet 15 mg PO BID amlodipine 10 mg tablet 10 mg PO QAM 90 Days Qty: 90 3RF levothyroxine 75 mcg capsule 75 mcg PO DAILY Discharge Orders: Discharge Order (Routine); Ordered 10/16/22 Ordered By: Alvaro Harley Diet: Advance to usual diet Activity on Discharge: As tolerated Stand Alone Forms: Patient Portal Discharge page Care Plan Goals: recovery Health Concerns: chf Plan of Treatment: continue lasix, monitor weights, may need to adjust dose accordingly Assessment: see above
--- NOTE | 2022-10-17 09:17 | MHC.CM.PN ---
pt dcd home no skilled servceis ordered by
== END 2022-10-16 17:58 | disposition home or self-care (01) | DRG 291 ==
LOC: HO.ED 21:55 → HO.EDOVER 10-16 04:50 → HO.IMC 10-16 16:18 → HO.EDOVER 10-16 17:10
PROVIDERS: Admitting Provider Student in an Organized Health Care Education/Training Program; Emergency Provider Internal Medicine; PCP Internal Medicine; Visit Provider Internal Medicine
DX: I11.0 Hypertensive heart disease with heart failure (principal); I50.33 Acute on chronic diastolic (congestive) heart failure; J96.21 Acute and chronic respiratory failure with hypoxia; N17.9 Acute kidney failure, unspecified; E03.9 Hypothyroidism, unspecified; J47.9 Bronchiectasis, uncomplicated; R13.10 Dysphagia, unspecified; G47.33 Obstructive sleep apnea (adult) (pediatric); F39 Unspecified mood [affective] disorder; K90.0 Celiac disease; Z20.822 Contact with and (suspected) exposure to COVID-19; Z87.891 Personal history of nicotine dependence; Z88.2 Allergy status to sulfonamides; Z79.890 Hormone replacement therapy; Z79.899 Other long term (current) drug therapy
CPT/HCPCS: 0241U; 36415; 71045; 71250; 80048; 83605; 83880; 85025; 87040; 93005; 94640; 96361; 96365; 96375; 99285; J0692; J0696; J1100; J1650; J1940

== ENCOUNTER 2022-10-22 08:47 | Outpatient (REF) | payer MEDICARE, SELFPAY ==
[2022-10-22 11:13] LABS: MANUAL DIFF FLAG NO
[2022-10-22 11:27] LABS: Basophils Absolute Auto 0.1 X10*3/uL (0.0-0.2); Basophils Percent Auto 0.9 % (0-2); Eosinophils Absolute Auto 0.3 X10*3/uL (0.0-0.4); Hematocrit 43.6 % (37.0-47.0); Imm Gran Abs Auto 0.11 X10*3/uL (0.00-0.03); Lymphocytes Absolute Auto 1.3 X10*3/uL (1.2-4.9); Lymphocytes Percent Auto 11.5 % (20-40); Mean Corpuscular HGB Conc 32.1 g/dl (31.0-35.0); Mean Corpuscular Hemoglobin 29.2 pg (27.0-33.0); Mean Corpuscular Volume 90.8 fL (80.0-98.0); Mean Platelet Volume 10.8 fL (9.4-12.3); Monocytes Absolute Auto 1.1 X10*3/uL (0.1-1.2); Monocytes Percent Auto 9.8 % (2-11); Neutrophils Absolute Auto 8.5 x10*3/uL (2.0-8.3); Neutrophils Percent Auto 73.8 % (45-73); Platelet Count 330 X10*3/uL (160-400); Red Cell Distribution Width 14.2 % (11.0-16.0); White Blood Count 11.4 X10*3/uL (4.8-10.8)
[2022-10-22 11:34] LABS: Estimated Average Glucose 111 mg/dL; Hemoglobin A1c % 5.5 %
[2022-10-22 12:04] LABS: Alanine Aminotransferase 28 U/L (0-31); Albumin Level 4.3 g/dL (3.5-5.0); Alkaline Phosphatase 113 U/L (39-117); Anion Gap 13 (12-20); Aspartate Amino Transferase 27 U/L (5-31); Bilirubin Total 0.5 mg/dL (0.0-1.0); Blood Urea Nitrogen 26 mg/dL (9-16); Calcium 9.4 mg/dL (8.4-10.2); Carbon Dioxide 27 mmol/L (22-29); Chloride 101 mmol/L (96-108); Estimated Glomerular Filt Rate 49; Glucose Random 103 mg/dL (60-115); Potassium 4.2 mmol/L (3.3-5.1); Sodium 137 mmol/L (135-145); TSH reflex Free T4 3.87 uIU/mL (0.32-4.0)
== END 2022-10-22 08:48 | disposition home or self-care (01) ==
LOC: HO.HMGCLDS 08:47
PROVIDERS: PCP Internal Medicine; Visit Provider Internal Medicine
DX: G90.3 Multi-system degeneration of the autonomic nervous system (principal); I50.30 Unspecified diastolic (congestive) heart failure; J44.9 Chronic obstructive pulmonary disease, unspecified; E03.9 Hypothyroidism, unspecified
CPT/HCPCS: 36415; 80053; 83036; 84443; 85025

== ENCOUNTER → 2022-11-08 10:30 | Outpatient (BNVA) | payer MEDICARE, SELFPAY | PROVIDERS: PCP Internal Medicine; Visit Provider Hospitalist | DX: R91.1 Solitary pulmonary nodule (principal); J45.40 Moderate persistent asthma, uncomplicated; J18.9 Pneumonia, unspecified organism; G47.33 Obstructive sleep apnea (adult) (pediatric); Z99.89 Dependence on other enabling machines and devices | CPT/HCPCS: 99212 ==

== ENCOUNTER → 2022-11-18 12:48 | Outpatient (REF) | payer MEDICARE, SELFPAY ==
--- NOTE | 2022-11-18 12:51 | CA_ITS ---
Transthoracic Echocardiogram Patient (Last, First, Middle): Sana De Jesus A Gender: Female Date of : 1950 Age: 72 Procedure Date: 11/18/2022 Procedure Type: Transthoracic Echocardiogram Location: OP Height: 160.02 cm Weight: 78.47 kg BSA: 1.82 m2 Heart Rate: bpm BP: 120 / 60 mmHg Java Developer With Security Clearance: ZULMA Referring MD: Anish Vargas MD Symptoms: I50.33 - Acute on chronic diastolic (congestive) heart failure Study Quality: Fair ECG Rhythm: Sinus Conclusions: - The left ventricular systolic function is normal. The calculated ejection fraction is 69% by biplane method. - LV peak GLS -23.7%. - Evidence suggests grade I (mild) diastolic dysfunction. - No obvious valvular pathology seen on this study. Findings Left Ventricle Normal left ventricular cavity size. There is normal left ventricular wall thickness. The left ventricular systolic function is normal. The calculated ejection fraction is 69% by biplane method. There is no evidence of regional wall motion abnormalities. E/E prime ratio is between 8 and 15 consistent with indeterminate filling pressures. Evidence suggests grade I (mild) diastolic dysfunction. LV peak GLS -23.7%. Right Ventricle Normal right ventricular cavity size and systolic function. Atria Both atria are normal in size. Aortic Valve There is a normal trileaflet aortic valve. There is mild calcification of the aortic valve. There is no aortic valve stenosis. Mitral Valve The mitral valve appears normal. There is trace mitral valve regurgitation. There is no mitral valve stenosis. Pulmonic Valve The pulmonic valve is likely normal. Tricuspid Valve Normal tricuspid valve structure. There is mild tricuspid valve regurgitation. There is no evidence of pulmonary hypertension. Great Vessels The aortic annulus, sinuses of valsalva, asc aorta, and aortic arch are normal in size. Venous The inferior vena cava is normal in size and collapses greater than 50% with inspiration. Pericardium/Pleural There is no evidence of pericardial effusion. Prior Study Comparison Changes noted compared to prior study dated: 11/04/2021. Currently, does not meet criteria for grade 2 diastolic dysfunction. Recommendations, Care & Conclusions No obvious valvular pathology seen on this study. Measurements 2D Linear Measurements IVSd: 0.94 0.6-0.9/0.6-1.0 cm LVIDd: 4.70 3.9-5.3/4.2-5.9 cm LVIDd Index: 2.58 2.4-3.2/2.2-3.1 cm/m2 LVIDs: 3.18 2.0-3.6 cm LVPWd: 0.89 0.7-1.1 cm LA Diam: 3.70 2.7-3.8/3.0-4.0 cm LAIDs Index: 2.03 1.5-2.3 cm/m2 LV Mass: 182.14 67-162/88-224 g LV Mass Index: 100.08 43-95/49-115 g/m2 LVOT Diam: 1.80 3.0+(-)1.3 cm 2D Systolic Function EF 4C: 70.50 >55% EF 2C: 67.30 >55% EF BiP: 69.10 >55% Mitral Valve MV Pk E: 1.14 MV PK A: 1.06 MV Decel Time: 243.00 E/A: 1.10 E'Lateral: 8.49 E'Medial: 7.51 E/E' Med: 15.20 E/E' Lat: 13.40 PHT: 71.00 MVA PHT: 3.10 Decel [place]: 4.67 Aortic Valve AoV Pk Armando: 1.78 AoV Mn Armando: 1.16 AoV VTI: 0.47 AoV Pk Grad: 13.00 Aov Mn Grad: 6.00 NICOLE Cont.VTI: 1.86 LVOT LVOT Pk Armando: 1.39 LVOT Mn Armando: 0.81 LVOT VTI: 0.35 LVOT Pk Grad: 8.00 LVOT Mn Grad: 3.00 LVOT Diam: 1.80 LVOT Area: 2.54 Diastolic Function MV Pk E: 1.14 MV Pk A: 1.06 E/A: 1.10 E'Medial: 7.51 E/E' Med: 15.20 E' Laterial: 8.49 E/E' Lat: 13.40 Right Ventricle TAPSE (mm): 27.20 TVS' Armando: 11.00 Tricuspid Valve TR Pk Armando: 2.78 TR Pk Grad: 31.00 RA Press: 3.00 RVSP: 34.00 Great Vessels Aorta Sinus of Valsalva: 2.81 2.0-3.[address] [place]: 2.10 1.7-3.4 cm Ao Asc: 2.90 2.1-3.4 cm Ao Arch: 2.50 Updated in Other Vendor System with Status of Final Killian Pimentel MD electronically signed on 11/20/2022 11:59:45 AM with status of Final
== END ==
LOC: HO.CARD 12:48
PROVIDERS: PCP Internal Medicine; Visit Provider Internal Medicine Cardiovascular Disease
DX: I50.33 Acute on chronic diastolic (congestive) heart failure (principal)
CPT/HCPCS: 93306; 93356

== ENCOUNTER → 2022-11-22 10:06 | Outpatient (BNVA) | payer MEDICARE, SELFPAY | PROVIDERS: PCP Internal Medicine; Visit Provider Internal Medicine Gastroenterology | DX: R13.10 Dysphagia, unspecified (principal) | CPT/HCPCS: 99212 ==

== ENCOUNTER → 2023-01-03 10:09 | Outpatient (BNVA) | payer MEDICARE, SELFPAY | PROVIDERS: PCP Internal Medicine; Referring Provider Internal Medicine; Visit Provider Internal Medicine Cardiovascular Disease | DX: I50.33 Acute on chronic diastolic (congestive) heart failure (principal); G90.3 Multi-system degeneration of the autonomic nervous system | CPT/HCPCS: 99212 ==

== ENCOUNTER 2023-02-15 07:44 | Outpatient (AMB) | payer MEDICARE, SELFPAY ==
--- NOTE | 2023-02-15 07:50 | A.OFFPC_ITS ---
Vital Signs 02/15/23 07:51 Height 5 ft 3 in Weight 175 lb BMI 31.0 BP 122/64 Blood Pressure Location Lt brachial Position Sitting Pulse 57 Pulse Source Pulse Oximeter Pulse Oximetry (%) 95 Oxygen Delivery Method Room Air Intake Visit Reasons: followup thrush, oral patches Intake Note: Pt is here today for a sick visit. Pt c/o thrush in her mouth. Allergies gluten [GLUTEN] Allergy (Severe, Verified 02/15/23 07:54) ABD PAIN Sulfa (Sulfonamide Antibiotics) [SULFA(SULFONAMIDE ANTIBIOTICS)] Allergy (Severe, Verified 02/15/23 07:54) Rash mirtazapine Adverse Reaction (Severe, Verified 02/15/23 07:54) peripheral edema Medication List - Last Reconciled 02/15/23 by Celestina Zimmerman MD amlodipine 10 mg PO QAM 90 days buspirone 15 mg PO BID compress.stocking,knee,reg,med apply in the am and remove in the pm erenumab-aooe (Aimovig Autoinjector) 140 mg subcut Q4W fluconazole 100 mg PO DAILY furosemide 40 mg PO DAILY gabapentin 300 mg PO DAILY hydralazine 25 mg PO DAILY hydralazine 75 mg PO BEDTIME labetalol 100 mg PO BID levalbuterol tartrate 45 mcg/actuation (Xopenex HFA) 2 puffs PO Q6H PRN 30 days levothyroxine 75 mcg PO DAILY lorazepam 1 mg PO BID PRN montelukast (Singulair) 10 mg PO DAILY PRN 90 days nebulizers As directed omeprazole 40 mg PO BID oxybutynin chloride 5 mg PO BEDTIME ropinirole 0.5 mg PO BEDTIME sertraline 100 mg PO DAILY sodium fluoride-pot nitrate 1.1-5 % PO BEDTIME spironolactone 50 mg (2 x 25 mg) PO DAILY trazodone 100 mg PO BEDTIME ursodiol 500 mg PO BID Tobacco use date assessed: 08/09/22 Dental Screening Dental Screen Date: 02/15/23 Did you have a dental visit in the last 12 months?: Yes Did you have a dental problem in the last 6 months where you did not have access to dental care?: No Was dental information given to patient?: Patient has dentist HPI followup thrush, oral patches HPI Details Patient presents for the follow-up of hypertension CHF hyperlipidemia COPD/asthma. Patient complains of dry month and irritation of her mouth that she feels is due to recurrent candidiasis. Patient was treated multiple times with fluconazole without significant improvement. She has been taking oxybutynin for chronic urinary incontinence. [facility] Medical History Annual physical exam Asthma Asthma-COPD overlap syndrome Celiac disease Diastolic CHF Dysphagia Dyspnea Edema Hearing loss History of concussion HTN (hypertension) Hyperlipemia Hypothyroid Hypoxemia requiring supplemental oxygen Lower extremity edema Mammogram normal Nonspecific interstitial pneumonitis Orthostatic hypotension dysautonomic syndrome DANIS on CPAP Peripheral neuropathy Pneumonitis Psychiatric disorder Pulmonary hypertension Pulmonary nodule Pulmonary nodule Shortness of breath Urinary incontinence Vocal cord dysfunction Weight gain Surgical History Endometrial adenocarcinoma History of colonoscopy History of total abdominal hysterectomy and bilateral salpingo-oophorectomy Hx of esophagogastroduodenoscopy Family History (Updated 02/15/23 @ 07:57 by Lor Fortune [facility]) Father [place] cell cancer HTN (hypertension) CVD (cardiovascular disease) Mother Crohn disease Cancer Maternal Grandfather No problems noted. Maternal Grandmother No problems noted. Paternal Grandfather CVD (cardiovascular disease) Paternal Grandmother COPD (chronic obstructive pulmonary disease) Brother No problems noted. Sister No problems noted. Daughter No problems noted. Social History Household Members: Spouse Housing: House Are you a primary critical care unit nurse to a significant other at home: No Do you presently have visiting nurse or other home services: No Alcohol intake: current Alcohol intake frequency: holidays/special occasions only Patient Tobacco Use Status: Former Tobacco user Quit Date: 1989 Tobacco use type: Cigarette Years Smoked: 2 e-Cigarette/Vaping Use: Never Used Second Hand Smoke Exposure: No service: No Current occupational status: retired Cognitive needs: No Hearing needs: Yes Vision needs: Yes Questionnaire Thrive Questionnaire Date Thrive assessed: 08/09/22 MONA-7 AMB Questionnaire MONA-7 Date MONA - 7 assessed: 02/15/23 Feeling nervous, anxious, or on edge: 0 = Not at all Not being able to stop or control worryin = Not at all Worrying too much about different things: 0 = Not at all Trouble relaxin = Not at all Being so restless that it is hard to sit still: 0 = Not at all Becoming easily annoyed or irritable: 0 = Not at all Feeling afraid as if something awful might happen: 0 = Not at all Total MONA-7 score (0-4 normal; 5-9 mild; 10-14 moderate; 15-21 severe): 0 Source: Developed by Drs. Judson Bravo, Breonna Fernandez, Jared Johnson and colleagues, with an educational shola from [employer]. Review of Systems Const All systems reviewed & are unremarkable except as noted in HPI and below Reports no additional complaints Eyes Reports no additional complaints ENT Reports no additional complaints Card Reports no additional complaints Resp Reports no additional complaints GI Reports no additional complaints Reports no additional complaints Physical exam (Primary Care) Vital Signs: Last Vital Signs Pulse 57 02/15/23 07:51 BP 122/64 02/15/23 07:51 Pulse Ox 95 02/15/23 07:51 Oxygen Delivery Method Room Air 02/15/23 07:51 BMI result Body Mass Index 31.0 Tobacco/Smoking Status: Tobacco use Status Tobacco use date assessed 08/09/22 02/15/23 07:57 Patient Tobacco Use Status Former Tobacco user 02/15/23 07:57 Tobacco use type Cigarette 02/15/23 07:57 e-Cigarette/Vaping Use Never Used 02/15/23 07:57 Thrive Assessment: Date of Thrive Assessment Date Thrive assessed 08/09/22 02/15/23 07:57 Const General: no acute distress HENMT Head: Yes normal to inspection Ears: hearing grossly normal bilaterally Face and sinus: Yes normal facial exam Teeth and gingiva: dentition normal Throat: Yes posterior oropharynx normal Eyes General: appearance normal, both eyes and all related structures Neck Neck: Yes no lymphadenopathy and Yes supple Resp Effort & Inspection: normal respiratory effort Auscultation: clear to auscultation bilaterally Cardio Rhythm: regular rhythm Heart sounds: S1 normal heart sound present and S2 normal heart sound present GI Inspection: Yes normal to inspection Palpation (GI): Soft to palpation Percussion: Yes normal to percussion Auscultation: normal bowel sounds Assessment and Plan Assessment & Plan (1) Hypothyroid: Code(s): E03.9 - Hypothyroidism, unspecified Plan: Continue levothyroxine check TSH (2) Diastolic dysfunction: Code(s): I51.89 - Other ill-defined heart diseases Plan: Continue current medications follow-up with nurse orthopaedic (3) Orthostatic hypotension dysautonomic syndrome: Code(s): G90.3 - Multi-system degeneration of the autonomic nervous system Plan: Continue current medication (4) Hyperlipemia: Code(s): E78.5 - Hyperlipidemia, unspecified (5) Dry mouth: Code(s): R68.2 - Dry mouth, unspecified Plan: Most likely side effect from multiple medications. Patient was advised to use dry mouth lozenges. Orders: Orders Comprehensive [place]. Panel Fast Today E03.9 - Hypothyroidism, unspecified, G90.3 - Multi-system degeneration of the autonomic nervous system, I51.89 - Other ill- defined heart diseases Hemoglobin A1c Today E03.9 - Hypothyroidism, unspecified, G90.3 - Multi-system degeneration of the autonomic nervous system, I51.89 - Other ill-defined heart diseases Lipase Today E03.9 - Hypothyroidism, unspecified, G90.3 - Multi-system degeneration of the autonomic nervous system, I51.89 - Other ill-defined heart diseases TSH reflex Free T4 Today E03.9 - Hypothyroidism, unspecified, G90.3 - Multi- system degeneration of the autonomic nervous system, I51.89 - Other ill-defined heart diseases Complete Blood Count Auto Diff Today E03.9 - Hypothyroidism, unspecified, G90.3 - Multi-system degeneration of the autonomic nervous system, I51.89 - Other ill- defined heart diseases Coding Level of Care Code Est Pt Level 4 (31495) Diagnoses Hypothyroid E03.9 Diastolic dysfunction I51.89 Orthostatic hypotension dysautonomic syndrome G90.3 Hyperlipemia E78.5 Dry mouth R68.2
[2023-02-15 07:51] VITALS: BP 122/64; PULSE 57; O2SAT 95; BMI 31.0
== END 2023-02-15 08:18 | disposition home or self-care (01) ==
PROVIDERS: PCP Internal Medicine; Visit Provider Internal Medicine
DX: E03.9 Hypothyroidism, unspecified (principal); I51.89 Other ill-defined heart diseases; G90.3 Multi-system degeneration of the autonomic nervous system; E78.5 Hyperlipidemia, unspecified; R68.2 Dry mouth, unspecified
CPT/HCPCS: 99214

== ENCOUNTER 2023-02-15 08:19 | Outpatient (REF) | payer MEDICARE, SELFPAY ==
[2023-02-15 11:25] LABS: MANUAL DIFF FLAG NO
[2023-02-15 11:53] LABS: Basophils Absolute Auto 0.1 X10*3/uL (0.0-0.2); Eosinophils Absolute Auto 0.2 X10*3/uL (0.0-0.4); Eosinophils Percent Auto 4.8 % (0-4); Hematocrit 44.8 % (37.0-47.0); Hemoglobin 14.1 g/dl (12.0-16.0); Imm Gran Abs Auto 0.01 X10*3/uL (0.00-0.03); Imm Gran Pct Auto 0.2 % (0.0-0.4); Lymphocytes Absolute Auto 1.1 X10*3/uL (1.2-4.9); Lymphocytes Percent Auto 21.6 % (20-40); Mean Corpuscular HGB Conc 31.5 g/dl (31.0-35.0); Mean Corpuscular Volume 92.2 fL (80.0-98.0); Monocytes Absolute Auto 0.6 X10*3/uL (0.1-1.2); Monocytes Percent Auto 11.2 % (2-11); Neutrophils Absolute Auto 3.1 x10*3/uL (2.0-8.3); Neutrophils Percent Auto 61.2 % (45-73); Platelet Count 263 X10*3/uL (160-400); Red Blood Count 4.86 X10*6/uL (4.20-5.50); Red Cell Distribution Width 14.4 % (11.0-16.0)
[2023-02-15 12:14] LABS: Alanine Aminotransferase 28 U/L (0-31); Albumin Level 4.3 g/dL (3.5-5.0); Alkaline Phosphatase 96 U/L (39-117); Anion Gap 12 (12-20); Aspartate Amino Transferase 33 U/L (5-31); Bilirubin Total 0.4 mg/dL (0.0-1.0); Blood Urea Nitrogen 21 mg/dL (9-16); Calcium 9.8 mg/dL (8.4-10.2); Carbon Dioxide 34 mmol/L (22-29); Chloride 99 mmol/L (96-108); Estimated Glomerular Filt Rate 52; Glucose Fasting 89 mg/dL (60-99); Lipase 18 U/L (8-78); Potassium 3.8 mmol/L (3.3-5.1); Sodium 141 mmol/L (135-145); Total Protein 7.4 g/dL (6.5-8.0)
[2023-02-15 12:16] LABS: Estimated Average Glucose 103 mg/dL; Hemoglobin A1c % 5.2 %
[2023-02-15 12:37] LABS: TSH reflex Free T4 4.84 uIU/mL (0.32-4.0)
[2023-02-15 13:23] LABS: Free T4 (Free Thyroxine) 0.93 ng/dL (0.71-1.85)
== END 2023-02-15 08:20 | disposition home or self-care (01) ==
LOC: HO.HMGCLDS 08:19
PROVIDERS: PCP Internal Medicine; Visit Provider Internal Medicine
DX: E03.9 Hypothyroidism, unspecified (principal); G90.3 Multi-system degeneration of the autonomic nervous system; I51.89 Other ill-defined heart diseases
CPT/HCPCS: 36415; 80053; 83036; 83690; 84439; 84443; 85025

== ENCOUNTER 2023-03-14 11:56 | Outpatient (AMB) | payer MEDICARE, SELFPAY ==
--- NOTE | 2023-03-14 12:13 | A.OFFVIS_ITS ---
Intake Intake Visit Reasons: 4 mnth follow up Allergies gluten [GLUTEN] Allergy (Severe, Verified 02/15/23 07:54) ABD PAIN Sulfa (Sulfonamide Antibiotics) [SULFA(SULFONAMIDE ANTIBIOTICS)] Allergy (Severe, Verified 02/15/23 07:54) Rash mirtazapine Adverse Reaction (Severe, Verified 02/15/23 07:54) peripheral edema HPI 4 mnth follow up HPI Details 72 yr old f with hx of endometrial ca, asthma-COPD, hypothyroidism, diastolic CHF, DANIS< dysautonomia here for f/u ISSUES: 1/ Dysphagia: I had referred her to [facility] for repeat manometry, ? she was told she needs to see a GI over there first She has been having issues on and off with swallowing, still ongoing she has alternating bowels habits, takes senna and colace, occ MOM reflxu worse with bending down still taking pepcid at night and omeprazole BID she has v occ nausea she has early satiety plan was for esophgeal manometry at [facility], not had this yet TESTS: she had EGD at [facility] with nml biopsies, EMS with high IRP, otherwise nml per paperwork, EGD 04/2021-- nml duodenal bx, nml esophgeal bx, hyperplastic/fundic polyp removed Ba swallow 01/2021-- severe esophageal dysmotility, prolonged stasis, no gerd, swallowing mechanism 2/Abn LFT: She has had abn LFT with elevated AST/ALT since at least 2017, alk phos is also elevated now AMA, LINDA< LKM were neg, Hep B neg apart from Antibody pos, Hep C serology pos but PCR neg she has been compliant with celiac diet and serologies were negative she does not drink alcohol not on any supplements or herbs except vit D and MV, chomile tea she is on ursodiol--LFT and lak phos have improved she had a pelvic fracture January 2022--still recovering and getting PT TESTS: US 08/2022-- cholelithiasis noted rept LFT 10/22/22- normal neg celiac, neg LKM, neg LINDA EXAM: GENERAL: The patient is well developed and nontoxic. VITAL SIGNS:see workflow HEENT: Nonicteric sclerae, PERRLA, EOMI. Oropharynx clear. Moist mucous membranes. Conjunctivae appear well perfused. No thyroid mass. CHEST: Chest wall is nontender. HEART: Regular rate and rhythm without murmurs. LUNGS: Clear to auscultation bilaterally. ABDOMEN: Soft, positive bowel sounds, nontender, no organomegaly.no flank tenderness SKIN: No rash, no excessive bruising, petechiae, or purpura. NEUROLOGIC: Cranial nerves II-XII intact without motor/sensory deficit. psych--nml affect A/P: 1/ Dysphagia--possible 2/2 IEM, ddx achalasia, no features of CREST etc on exam, refractory or partially controlled GERD--high IRP per holly gregory notes 2/ abn LFT< neg LINDA, AMA, neg celiac, recent LFT nml--on ursodiol Plan; 1/ esophgeal manometry as originally planned, check with [facility]--if long delay then EGD with savary dilation here --check for inlet patch and treat if present 2/ GES to r/o gastroparesis ramone with her hx of dysautonomia ?? [facility] Medical History Annual physical exam Asthma Asthma-COPD overlap syndrome Celiac disease Diastolic CHF Dysphagia Dyspnea Edema Hearing loss History of concussion HTN (hypertension) Hyperlipemia Hypothyroid Hypoxemia requiring supplemental oxygen Lower extremity edema Mammogram normal Nonspecific interstitial pneumonitis Orthostatic hypotension dysautonomic syndrome DANIS on CPAP Peripheral neuropathy Pneumonitis Psychiatric disorder Pulmonary hypertension Pulmonary nodule Pulmonary nodule Shortness of breath Urinary incontinence Vocal cord dysfunction Weight gain Surgical History Endometrial adenocarcinoma History of colonoscopy History of total abdominal hysterectomy and bilateral salpingo-oophorectomy Hx of esophagogastroduodenoscopy Family History (Updated 02/15/23 @ 07:57 by Lor Fortune [facility]) Father [place] cell cancer HTN (hypertension) CVD (cardiovascular disease) Mother Crohn disease Cancer Maternal Grandfather No problems noted. Maternal Grandmother No problems noted. Paternal Grandfather CVD (cardiovascular disease) Paternal Grandmother COPD (chronic obstructive pulmonary disease) Brother No problems noted. Sister No problems noted. Daughter No problems noted. Social History Household Members: Spouse Housing: House Are you a primary certified caregiver to a significant other at home: No Do you presently have visiting nurse or other home services: No Alcohol intake: current Alcohol intake frequency: holidays/special occasions only Patient Tobacco Use Status: Former Tobacco user Quit Date: 1989 Tobacco use type: Cigarette Years Smoked: 2 e-Cigarette/Vaping Use: Never Used Second Hand Smoke Exposure: No service: No Current occupational status: retired Cognitive needs: No Hearing needs: Yes Vision needs: Yes Assessment & Plan Assessment & Plan (1) Elevated LFTs: Code(s): R79.89 - Other specified abnormal findings of blood chemistry (2) GERD (gastroesophageal reflux disease): Code(s): K21.9 - Gastro-esophageal reflux disease without esophagitis Coding Level of Care Code Est Pt Level 3 (73775) Diagnoses Elevated LFTs R79.89 GERD (gastroesophageal reflux disease) K21.9
== END 2023-03-14 13:21 | disposition home or self-care (01) ==
PROVIDERS: PCP Internal Medicine; Visit Provider Internal Medicine Gastroenterology
DX: R79.89 Other specified abnormal findings of blood chemistry (principal); K21.9 Gastro-esophageal reflux disease without esophagitis
CPT/HCPCS: 99213

== ENCOUNTER → 2023-03-14 11:56 | Outpatient (BNVA) | payer MEDICARE, SELFPAY | PROVIDERS: PCP Internal Medicine; Visit Provider Internal Medicine Gastroenterology | DX: K21.9 Gastro-esophageal reflux disease without esophagitis (principal); R79.89 Other specified abnormal findings of blood chemistry; R68.81 Early satiety | CPT/HCPCS: 99212 ==

== ENCOUNTER 2023-05-02 13:57 | Outpatient (AMB) | payer MEDICARE, SELFPAY ==
--- NOTE | 2023-05-02 14:06 | A.OFFVIS_ITS ---
Intake Vital Signs 05/02/23 14:13 Height 5 ft 3 in Weight 174 lb BMI 30.8 BP 120/60 Blood Pressure Location Lt brachial Position Sitting Pulse 52 Pulse Oximetry (%) 97 Intake Visit Reasons: Pneumonitis Allergies gluten [GLUTEN] Allergy (Severe, Verified 05/02/23 14:14) ABD PAIN Sulfa (Sulfonamide Antibiotics) [SULFA(SULFONAMIDE ANTIBIOTICS)] Allergy (Severe, Verified 05/02/23 14:14) Rash mirtazapine Adverse Reaction (Severe, Verified 05/02/23 14:14) peripheral edema HPI HPI Comments History of Present Illness Details The patient is a 72-year-old woman who was previously healthy until several years ago she was diagnosed with uterine cancer. After he started developing some shortness of breath. However cough for the last year her shortness of breath has gotten worse. Also complained of orthopnea where she could not sleep flat. She would have to sleep almost sitting up. Her shortness of breath became worse and further to the point that she was short of breath even at rest even while talking. She denied any chest pains or cough. Denies any exposures to any fumes or toxins or any farm exposures. Ultimately the patient did have a CT scan of the chest demonstrating areas of ground-glass opacities in addition to a dilated pulmonary trunk suggesting of some pulmonary hypertension. She denies any arthritic he is or rashes. Although, she does have a diagnosis of celiac disease. She denies coughing up any blood. She was referred to cardiology where she had an echocardiogram demonstrating grade 2 diastolic dysfunction without any evidence of pulmonary hypertension based on echo. Although, her pulmonary trunk is dilated and she does have lower extremity edema. She was referred to [place] for a right cardiac catheterization. In the meantime she was also referred to Pulmonary. She also underwent pulmonary function studies demonstrating moderate restriction with moderate to severe diffusion impairment. The patient did have a 6 minute walk test here in the office and she would desaturate down to about 92% but did not qualify for oxygen. She does have daytime drowsiness and headaches in the morning. Her Cottonwood score is elevated 07/24. She needs to have a sleep study done. Because of her cardiac history she will benefit from a diagnostic in lab PSG study. The patient has been on hormonal therapy. She did have a CTA but a month ago that was negative for any thromboembolic disease. However, need to consider chronic thromboembolic disease in this will be best done with V/Q scan. 04/17/2020 the patient is here for pulmonary follow-up visit. Overall she is feeling better. Her dyspnea on exertion has improved. She continues to have some daytime drowsiness. Cottonwood score still elevated 07/24. She also has significant migraines. We did review her sleep study. She appears to have a significant REM related sleep disorder with a REM AHI of 42 and an average AHI above 7. The patient continues to be symptomatic and with the concerns of the pulmonary hypertension the patient will benefit from CPAP therapy. In the meantime she did have a right heart catheterization which is reassuring demonstrated normal hemodynamic profile and no evidence of any pulmonary hypertension. Explained to her that at rest does not appear to have pulmonary hypertension but does not rule out the possibility of pulmonary hypertension with activity so therefore treating her with CPAP it is very important. Also, also discussed ground-glass opacities that she had a previous CAT scan suggesting the possibility of pneumonitis. Therefore, will start her on a inhaled cortical steroid to see if we can provide her some relief and also start her on CPAP. Will reassess in 3 months. 05/26/2020 the patient is here for pulmonary follow-up visit. She started again developing the symptoms of dyspnea. Initially she was feeling better. Her symptoms can be pretty severe at times with significant shortness of breath. She did follow-up with her cognos consultant and the recommended coming back to Pulmonary to assess the abnormal CT scan findings. She had evidence of pneumon itis. The full workup was Negative. In addition to that we had placed on Flovent to try to decrease the inflammation that way and the patient could not tolerate the inhaler. I did mention the possibility of a trial of prednisone, but, the patient is reluctant because she cannot tolerate prednisone due to her severe adverse effects with mood changes. She is agreeable to a bronchoscopy to further assess the airways and also potential transbronchial biopsies. In the meantime based on her significant sudden symptoms suggesting bronchospasms I will request a methacholine challenge at this time. In the meantime the patient continues uses CPAP. The CPAP therapy continues to be affecting beneficial. We did download the machine and she is using more than 4 hours a night. Her average pressure is around 8 and her maximum pressure is around 14. her AHI is 4. at this time appears patient needs additional pressure. I increase the pressure up to 16. we will monitor her tolerance during the next visit. 07/01/2020 the patient is here for pulmonary follow-up visit. She recently was hospitalized with worsening respiratory symptoms. She was found to be hypoxic. She was tested for COVID which was negative. She did have a repeat CT scan of the chest demonstrating again significant ground-glass opacities primarily in the upper lung zones. She was going 1 dose of Solu-Medrol and her symptoms improved and she was able to be weaned off oxygen. She was then put on a Medrol pack and has been on 8 mg twice a day. Her respiratory symptoms are getting better. At this point is still not clear when she has did pneumonitis. Appears to be primarily in the upper lung zones suggesting of a hyper sensitivity pneumonitis picture versus is sarcoidosis. She will need a biopsy in order to make a differentiation. However, while on the Medrol biopsy the will resume in a lower yield. Therefore, will try to wean her off the Medrol in then repeat her CT scan. Which we can consider a bronchoscopy the patient has persistent symptoms were more findings on the CT scan. We also did talk about the lung biopsy which should be more a surgical biopsy. This wider better you would be with more risk. Therefore, we will start with a bronchoscopy. Additional bloodwork will also be requested. 08/21/2020 the patient has a telephone visit. Apparently she was in her usual state health until this morning when she noticed that she was more short of breath [id number] severity and also when she checked her pulse ox she was saturating 93%. She became concerned. Denies any exposure to anybody with COVID 19 infection. She denies any viral symptoms. She has no longer taking any prednisone. Recently also she had a dietary indiscretion which she had more salt intake. Therefore, she did take additional diuretic medicine. The patient have a chest x-ray today. She will take the additional diuretics over the weekend. If her symptoms are no better then we will reassess specially since she had the bouts of pneumonitis of unclear etiology. Ultimatel, if she does develop recurrent pneumonitis then potential diagnostic intervention will be warranted. 09/29/2020 the patient is here for pulmonary follow-up visit. Overall the patient is feeling like she is getting more short of breath. She has also noticed increased lower extremity edema and she has also gained weight. She feels like she has edema up to her thighs. She did follow-up with cardiology in her Lasix was increased to 80 mg. After the issues she will diuretic the patient has not noticed any significant improving her respiratory status. She did not undergo blood work demonstrating a normal brain atretic peptide. I did have her undergo further blood work today. It appears that her brain atretic peptide continues to be decreased to normal and also her renal function is also normal. Also had again a D-dimer which was negative. On examination she again has crackles right lung more than left. I am concerned that she is developing the pneumonitis again specially since she is off the cortical steroid therapy. She does have celiac disease but she follows a very strict gluten free diet suggesting that is unlikely for her to develop pulmonary involvement. I will request a new urgent CT scan of the chest with hopes of assessing the area of inflammation and then plan for bronchoscopy. We did talk about different options as far as diagnostic interventions. She is aware the bronchoscopy may not have the yield of a surgical intervention but will be lower risk given can also assess for infections and also assess for hemosiderin or diffuse alveolar hemorrhage. 10/28/2020 the patient is here for pulmonary follow-up visit. She is status post bronchoscopy. After the bronchoscopy she did feel better she fell likely lungs were opening up better. The bronchoscopy was pretty unremarkable. She did have some bronchomalacia noted. In addition to that her biopsies dem onstrated chronic inflammation. This is suggestive of a chronic hypersensitivity pneumonitis. At this point is not clear which she could have inflammation to. However, will have to treated with inhaled cortical steroids. There is no evidence of bleeding to suggest celiac related vasculitis otherwise called Shane Johnson syndrome. In addition to that the patient has noticed increased lower extremity edema she has gained 3 lb in the last 24 hours. Currently her breathing feels good but if she develops any increasing shortness of breath or lower extremity edema she will take additional diuretics. 12/18/2020 the patient is here for pulmonary follow-up visit. Overall she is doing better. Several weeks ago she did develop some chest discomfort primarily on the left side. Therefore she went to the ER. There she had a CT scan of the chest PE protocol which was negative for any emboli. No evidence of any pneumonitis either which is reassuring. Her chest discomfort is overall better. It is definitely reproducible. She has been using her CPAP. The CPAP therapy has been affecting beneficial. She averages IX hours a night. In addition to that her average pressure is 12 cm. She does have an APAP set up 6- 16. At this point will leave her alone since is working well with an AHI of 1. From a respiratory status she has been doing better so therefore she is cutting down on the Asmanex HFA. 03/17/2021 the patient is here for a pulmonary follow-up visit. Overall she is feeling better. She did follow-up with ENT and was found to have some inflammation around the proximal esophagus and also the larynx. That could be contributing to her symptoms. She is not interested in having speech therapy at this time. We will look into it further later on. In the meantime ENT did recommend she follow-up with GI which she will be doing. She does complaint of a cough and congestion of her throat. She has been taking Benadryl and seems to be helping with the phlegm in the back of her throat. At this point will treat for chronic bronchitis with azithromycin 3 times a week with the hope that we can improve her promotility and decrease inflammation in that area. We also talked about budesonide, but, the patient is not interested in taking additional steroids at this time. She was evaluated by Allergy and was found to be allergic to mold and she will start allergy shots at this time. The patient has been using the Asmanex and she should continue using it. In the meantime will provide with albuterol for her nebulizer that she can use couple times a day as needed with the hope of improving her airway disease. Her CPAP continue to be effective and beneficial. 07/21/2021 the patient is here for a pulmonary follow-up visit. Overall she is doing well from a respiratory status. She has been able to decrease her respiratory medications. In the meantime she developed soreness of her mouth and tongue. She is not sure if is related to her celiac disease. She was check for Sjogren's disease about last year. She was negative. The patient is closely working with her dentist and I believe she is going to be referred for a biopsy if he continues to be significantly swollen. The patient also followed up in [place] and they are following him closely for heart failure with preserved EF. Although it is reassuring that echocardiogram is normal. Her last chest x- ray did demonstrate some perihilar congestion. She has not had any x-ray since the summer of 2020. Will plan to repeat the x-ray sometime in the fall 2021. She continues uses CPAP. The CPAP therapy continues to be affecting beneficial. She does use it for more than 4 hours a night. Otherwise the patient is doing well. 12/29/2021 the patient is here for a pulmonary follow-up visit. Overall she is doing well from a respiratory status. Denies any significant cough or shortness of breath. She recently was evaluated in [place] for her GI issues. Part of the workup included a CT scan of the chest that she had there. It was reported that she does have a 13 mm in left upper lobe mixed density. I did also review her CT scans that she has had here back in 2020 and reviewed them along with the patient. Does not appear to have anything in the left upper lobe. therefore, appears to be a new finding. I will request a CT scan from [facility] to be able to review the images myself. In the meantime explained to the patient based on the fact that is mixed, subsolid in nature then would benefit from getting repeat CT scan the next 3-6 months. The patient has had evidence of pneumonitis and interstitial changes on previous CT scans that have resolved. I am hopeful that this is a similar process. 05/05/2022 the patient is here for a pulmonary follow-up visit. Since we last spoke the patient had a bad fall, fracturing her pelvis in multiple locations. At the time she was at [facility]. She was transferred to a rehab. There she had minimal recovery. Now she is at home. She had been using a walker now she is walking on her own. Since he has been home she has noticed a worsening cough. The cough tends to be intermittently productive. Denies any hemoptysis. Also notices some minimal degree of shortness of breath but she is not sure if is all from the injury. She did recently have a CT scan of the chest that was personally by me. Has not been officially read yet. She appears to have some very they areas of ground-glass opacity that are patchy in nature bilaterally primarily in the upper lung zones. This appeared to be new when compared to her previous CT scan. In view of her symptoms will going to go ahead and start her inhaled cortical steroid to see if we can minimize inflammatory changes to her lungs at this time. Therefore she will start Flovent. I am hopeful that she continues to improve. To continue to receive therapy for her Healing fracture. The patient is otherwise without any other complaints. In the meantime she is using her CPAP. The CPAP therapy continues to be affecting beneficial. She does use it for more than 4 hours a night. She has been getting supplies. 11/08/2022 the patient is here for pulmonary follow-up visit. Patient overall has been doing better now. She had an issue with a passing of a family member having traveled to [place] multiple times and developing significant shortness of breath. She was taken to the ER at [facility] where she was briefly in the hospital for about 24 hours. Patient was diuresed she was also treated with nebulized therapy. She did feel better after the diuresis however. Her cardiac workup was unremarkable. She did have a CT scan of the chest that I did review with her demonstrating air trapping with mosaic pattern. Therefore explained to her the importance of using her rescue inhaler. She does get tremors however. Will provide her with Xopenex at this time. In the meantime she stop the Flovent because she was getting gingival disease and Juany infections therefore her dentist recommended she stop it. She is using her CPAP at nighttime. CPAP therapy continues to be affecting beneficial. We did download the data she does use it definitely more than 4 hours a night. Her AHI is down to 1.9. She does have issues with TMJ. She is getting a mouth guard. She was wondering about the hypoglossal nerve stimulator. I did advise her against it. 05/02/2023 the patient is here for a pulmonary follow-up visit. Overall the patient is doing very well from a respiratory status. She continues use her respiratory medications with good effect. She has not required any prednisone or any additional rescue medicine. She is been working on exercise and on lifestyle changes. We did review her last CT scan that was done back in September of 2022 demonstrating stable pulmonary nodules. She does have small subcentimeter nodules noted. At this point will hold off on serial CT scans. Will discuss additional testing during the next visit. The patient also continues use her CPAP every night. The CPAP therapy continues to be affecting beneficial. She does complaint of a dry mouth. We did increase the humidity. She does use the CPAP more than 4 hours a night. I did prescribe additional supplies to her [employer]. The patient otherwise is doing well so follow-up in a year's time. If she develops any worsening symptoms prior to this she will call for an earlier assessment. [facility] Medical History Annual physical exam Asthma Asthma-COPD overlap syndrome Celiac disease Diastolic CHF Dysphagia Dyspnea Edema Hearing loss History of concussion HTN (hypertension) Hyperlipemia Hypothyroid Hypoxemia requiring supplemental oxygen Lower extremity edema Mammogram normal Nonspecific interstitial pneumonitis Orthostatic hypotension dysautonomic syndrome DANIS on CPAP Peripheral neuropathy Pneumonitis Psychiatric disorder Pulmonary hypertension Pulmonary nodule Pulmonary nodule Shortness of breath Urinary incontinence Vocal cord dysfunction Weight gain Surgical History Endometrial adenocarcinoma History of colonoscopy History of total abdominal hysterectomy and bilateral salpingo-oophorectomy Hx of esophagogastroduodenoscopy Family History (Updated 02/15/23 @ 07:57 by Lor Fortune [facility]) Father [place] cell cancer HTN (hypertension) CVD (cardiovascular disease) Mother Crohn disease Cancer Maternal Grandfather No problems noted. Maternal Grandmother No problems noted. Paternal Grandfather CVD (cardiovascular disease) Paternal Grandmother COPD (chronic obstructive pulmonary disease) Brother No problems noted. Sister No problems noted. Daughter No problems noted. Social History Household Members: Spouse Housing: House Are you a primary residential child care counselor to a significant other at home: No Do you presently have visiting nurse or other home services: No Alcohol intake: current Alcohol intake frequency: holidays/special occasions only Patient Tobacco Use Status: Former Tobacco user Quit Date: 1989 Tobacco use type: Cigarette Years Smoked: 2 e-Cigarette/Vaping Use: Never Used Second Hand Smoke Exposure: No service: No Current occupational status: retired Cognitive needs: No Hearing needs: Yes Vision needs: Yes Review of Systems Const Denies fatigue, Denies fever(s), Denies night sweats, Denies poor appetite and Denies weight loss Eyes Reports requires corrective lenses ENT Denies Normal hearing present, Denies dental pain, Denies dysphagia, Denies hearing loss, Denies odynophagia, Denies throat swelling and Reports tongue swelling Card Reports no additional complaints and Denies dyspnea on exertion Resp Reports cough, Denies dyspnea on exertion and Denies wheezing GI Denies abdominal pain, Denies melena, Denies bloating, Denies hematochezia, Denies constipation, Denies GI cramping, Denies dysphagia, Denies excessive flatus, Denies early satiety, Denies heartburn, Denies diarrhea, Denies nausea, Denies odynophagia, Denies vomiting and Denies hematemesis Musc Reports as per HPI and Reports arthralgias Skin/Breast Denies pruritus, Denies lesions, Denies rash and Denies jaundice Neuro Denies Normal hearing present and Denies Abnormal speech present Endo Denies fatigue Aller/Immun Denies throat swelling, Reports tongue swelling and Denies wheezing Physical Exam Vital Signs: Last Vital Signs Pulse 52 05/02/23 14:13 BP 120/60 05/02/23 14:13 Pulse Ox 97 05/02/23 14:13 BMI result Body Mass Index 30.8 Const General: alert Neck Neck: Yes normal visual inspection, Yes full ROM and Yes no lymphadenopathy Chest Chest palpation & inspection: normal inspection of the chest Resp Effort & Inspection: normal respiratory effort Auscultation: clear to auscultation bilaterally Cardio Rate: regular rate Rhythm: regular rhythm Heart sounds: S1 normal heart sound present and S2 normal heart sound present General: Yes no CVA tenderness Back/Spine/Pelvis Back: no CVA tenderness Skin General skin exam: no rashes or lesions noted Neuro Cranial nerves: No Normal hearing present Speech: No Abnormal speech present Extrem General: Yes no clubbing, cyanosis or edema Assessment & Plan Assessment & Plan (1) Asthma: Code(s): J45.909 - Unspecified asthma, uncomplicated Qualifiers: Asthma complication type: uncomplicated Asthma persistence: persistent Asthma severity: moderate Qualified Code(s): J45.40 - Moderate persistent asthma, uncomplicated (2) DANIS on CPAP: Code(s): G47.33 - Obstructive sleep apnea (adult) (pediatric); Z99.89 - Dependence on other enabling machines and devices (3) Pneumonitis: Comment: better Code(s): J18.9 - Pneumonia, unspecified organism (4) Pulmonary nodule: Comment: 09/2022 stable Code(s): R91.1 - Solitary pulmonary nodule Plan JUWAN as needed, Xopenex Continue APAP Allergy therapy: claritin as needed consider repeating CT chest 12-18 months F/U 12 months Coding Level of Care Code Est Pt Level 4 (81538) Diagnoses Moderate persistent asthma without complication J45.40 Asthma complication type: uncomplicated Asthma persistence: persistent Asthma severity: moderate DANIS on CPAP G47.33; Z99.89 Pneumonitis J18.9 Pulmonary nodule R91.1 Time Spent (min) 17
[2023-05-02 14:13] VITALS: BP 120/60; PULSE 52; O2SAT 97; BMI 30.8
== END 2023-05-02 14:38 | disposition home or self-care (01) ==
PROVIDERS: PCP Internal Medicine; Visit Provider Hospitalist
DX: J45.40 Moderate persistent asthma, uncomplicated (principal); G47.33 Obstructive sleep apnea (adult) (pediatric); Z99.89 Dependence on other enabling machines and devices; J18.9 Pneumonia, unspecified organism; R91.1 Solitary pulmonary nodule
CPT/HCPCS: 99214

== ENCOUNTER → 2023-05-02 13:57 | Outpatient (BNVA) | payer MEDICARE, SELFPAY | PROVIDERS: Visit Provider Hospitalist | DX: J98.4 Other disorders of lung (principal); J45.40 Moderate persistent asthma, uncomplicated; G47.33 Obstructive sleep apnea (adult) (pediatric); R91.1 Solitary pulmonary nodule; Z87.891 Personal history of nicotine dependence; Z99.89 Dependence on other enabling machines and devices | CPT/HCPCS: 99212 ==

== ENCOUNTER → 2023-05-05 08:13 | Outpatient (REF) | payer MEDICARE, SELFPAY | LOC: HO.NUCMED 08:13 | PROVIDERS: PCP Internal Medicine; Visit Provider Internal Medicine Gastroenterology | DX: R68.81 Early satiety (principal) | CPT/HCPCS: 78264; A9541 ==

== ENCOUNTER 2023-06-21 13:37 | Emergency (ER) | payer MEDICARE, SELFPAY ==
--- NOTE | ~2023-06-21 | XR_ITS ---
EXAMINATION: XR CHEST CLINICAL INFORMATION: Shortness of breath COMPARISON: 10/15/2022 TECHNIQUE: 2 views of the chest were obtained. FINDINGS: No focal consolidation, pulmonary edema, or pleural effusion. Stable cardiomediastinal silhouette. XR/XR chest 2V IMPRESSION: No acute cardiopulmonary findings.
--- NOTE | 2023-06-21 14:42 | ED_ITS ---
HPI - General Adult General Chief complaint: Upper Respiratory Symptoms Stated complaint: Fever/Coughing up mucus Time Seen by Provider: 06/21/23 15:48 Source: patient, RN notes reviewed and old records reviewed Mode of arrival: ambulatory History of Present Illness HPI narrative: 72-year-old female with a past medical history of dysphagia, asthma, HLD, DANIS on CPAP, pulmonary hypertension, HTN, hypothyroid, presenting to the ED complaining of fever T-max 102 degrees, productive cough, nasal congestion, SOB, and mild chest wall discomfort with cough x2 weeks. Admits to taking Tylenol this morning. Reports recently being on antibiotics for dental infection, is supposed to have root canal however self canceled due to fever/URI symptoms. Denies recent travel, sick contacts, abdominal pain, pedal edema, calf tenderness, ear pain Related Data Home Medications Medication Instructions Recorded Confirmed sertraline 100 mg tablet 100 mg PO DAILY 05/06/21 02/15/23 lorazepam 1 mg tablet 1 mg PO BID PRN anxiety 03/19/22 02/15/23 buspirone 15 mg tablet 15 mg PO BID 06/08/22 02/15/23 gabapentin 300 mg capsule 300 mg PO DAILY 10/16/22 02/15/23 hydralazine 25 mg tablet 25 mg PO DAILY 10/16/22 02/15/23 hydralazine 25 mg tablet 75 mg PO BEDTIME 10/16/22 02/15/23 erenumab-aooe 140 mg/mL 140 mg subcut Q4W 11/08/22 02/15/23 subcutaneous auto-injector (Aimovig Autoinjector) nebulizers 11/08/22 02/15/23 sodium fluoride 1.1 %-potassium PO BEDTIME 11/08/22 02/15/23 nitrate 5 % dental paste ropinirole 0.5 mg tablet 0.5 mg PO BEDTIME 11/22/22 02/15/23 trazodone 50 mg tablet 100 mg PO BEDTIME 11/22/22 02/15/23 Previous Rx's Medication Instructions Recorded compress.stocking,knee,reg,med #2 ea 11/19/20 amlodipine 10 mg tablet 10 mg PO QAM 90 days #90 tabs 06/08/22 labetalol 100 mg tablet 100 mg PO BID #180 tabs 07/28/22 furosemide 40 mg tablet 40 mg PO DAILY #180 tabs 10/26/22 levalbuterol tartrate 45 2 puff PO Q6H PRN shortness of 11/08/22 mcg/actuation aerosol inhaler breath or wheezing 30 days #15 (Xopenex HFA) grams omeprazole 40 mg capsule,delayed 40 mg PO BID #180 caps 11/28/22 release spironolactone 25 mg tablet 50 mg (2 x 25 mg) PO DAILY #180 11/28/22 tabs oxybutynin chloride 5 mg tablet 5 mg PO BEDTIME #90 tabs 01/04/23 fluconazole 100 mg tablet 100 mg PO DAILY #7 tabs 01/17/23 levothyroxine 88 mcg tablet 88 mcg PO DAILY #90 tabs 02/16/23 levothyroxine 88 mcg tablet 88 mcg PO DAILY #90 tabs 02/18/23 ursodiol 500 mg tablet 500 mg PO BID #120 tabs 06/06/23 montelukast 10 mg tablet 10 mg PO DAILY PRN allergy 06/08/23 (Singulair) symptoms 90 days #90 tabs azithromycin 250 mg tablet See Rx Instructions PO .COMPLEX #6 06/21/23 tabs benzonatate 100 mg capsule 100 mg PO TID PRN cough #14 caps 06/21/23 Allergies Allergy/AdvReac Type Severity Reaction Status Date / Time gluten [GLUTEN] Allergy Severe ABD PAIN Verified 06/21/23 14:43 Sulfa (Sulfonamide Allergy Severe Rash Verified 06/21/23 14:43 Antibiotics) [SULFA(SULFONAMIDE ANTIBIOTICS)] mirtazapine AdvReac Severe peripheral Verified 06/21/23 14:43 edema Review of Systems 2 Review of Systems: Constitutional: + Fever, No Chills ENT/Mouth: No Ear Pain, + Nasal Congestion, No Sinus Pain, No Hoarseness, + sore throat, + Rhinorrhea, No Swallowing Difficulty Cardiovascular: + Chest Wall Pain w/cough, + SOB Respiratory: +Cough, + Sputum, No Wheezing Gastrointestinal: No Nausea, No Vomiting, No Diarrhea, No Constipation, No Abdominal pain Musculoskeletal: No joint pain, No Myalgias, No Joint Swelling Skin: No Skin Lesions, No rash Neuro: No Weakness, No Numbness, No Paresthesias Yes all other systems are reviewed and are negative Constitutional: Constitutional: Reports as per [facility] Past Medical History Attestation statement: The following information was validated with the patient. Source: old records reviewed Medical History Pulmonary nodule Pulmonary nodule Hearing loss Annual physical exam Dysphagia Vocal cord dysfunction Asthma-COPD overlap syndrome Weight gain Edema Urinary incontinence Asthma History of concussion Shortness of breath Lower extremity edema Dyspnea Hypoxemia requiring supplemental oxygen Nonspecific interstitial pneumonitis Peripheral neuropathy Psychiatric disorder Mammogram normal Hyperlipemia Pulmonary hypertension DANIS on CPAP Pneumonitis Orthostatic hypotension dysautonomic syndrome Hypothyroid HTN (hypertension) Celiac disease Diastolic CHF Surgical History Hx of esophagogastroduodenoscopy History of total abdominal hysterectomy and bilateral salpingo-oophorectomy Endometrial adenocarcinoma History of colonoscopy Family History Family History Father Schroeder cell cancer HTN (hypertension) CVD (cardiovascular disease) Mother Crohn disease Cancer Maternal Grandfather No problems noted. Maternal Grandmother No problems noted. Paternal Grandfather CVD (cardiovascular disease) Paternal Grandmother COPD (chronic obstructive pulmonary disease) Brother No problems noted. Sister No problems noted. Daughter No problems noted. Social History Household Members: Spouse Housing: House Are you a primary health care social worker to a significant other at home: No Do you presently have visiting nurse or other home services: No Alcohol intake: current Alcohol intake frequency: holidays/special occasions only Patient Tobacco Use Status: Former Tobacco user Quit Date: 1989 Tobacco use type: Cigarette Years Smoked: 2 e-Cigarette/Vaping Use: Never Used Second Hand Smoke Exposure: No Advance Directives: Yes Advance Directives Information Provided: Yes Advance Directives on File: No service: No Current occupational status: retired Cognitive needs: No Hearing needs: Yes Vision needs: Yes Physical Exam ED Vital Signs: Vital Signs - 24 hr 06/21/23 14:44 Temperature 98.4 F Pulse Rate 71 Respiratory Rate 18 Blood Pressure 130/52 L Pulse Oximetry 96 Oxygen Delivery Method Room Air BMI result Body Mass Index 29.2 Const General: cooperative, healthy appearing and no acute distress Orientation/consciousness: patient oriented x3 Limitations: no limitations HENMT Head: Yes normal to inspection and Yes atraumatic Ears: hearing grossly normal bilaterally, external ears normal, TM's normal bilaterally and mastoids normal General nose exam: Normal external nose present Face and sinus: Yes normal facial exam Throat: Yes posterior oropharynx normal, Yes tonsils normal, Yes uvula midline, No uvula laterally displaced and No uvular edema Eyes General: appearance normal, both eyes and all related structures EOM: EOMs intact bilaterally Neck Neck: Yes normal visual inspection and Yes no meningeal signs Resp Effort & Inspection: normal respiratory effort, no respiratory distress and not tachypneic Auscultation: clear to auscultation bilaterally, no crackles and no wheezes Cardio Rate: regular rate Heart sounds: S1 normal heart sound present and S2 normal heart sound present GI Inspection: Yes normal to inspection Palpation (GI): Soft to palpation, nontender, no guarding and not rigid Skin Rashes: no rashes Wounds: no wounds Neuro General: patient oriented x3, tone normal and no meningeal signs Cranial nerves: Yes CN's II-XII intact bilaterally Gait exam (Neuro): Normal gait present Extrem General: Yes normal to inspection, Yes no pedal edema and Yes no calf tenderness Course Course Course Narrative: This is an RME: Additional HPI, ROS, PE not included below will be deferred to primary provider. This is a [id number]-female with a hx of celiac disease, HTN, CHF, sleep apnea on CPAP, presenting to the ER with complaints of BL ear pain, glandular pain, chest pain, productive cough with green/yellow sputum x several weeks. Patient states that over this past week she was placed on a course of amoxicillin. She states that at night she has been spiking temperatures of 102. Patient also endorses some chest pressure and pain. Plan: Labs, CxR, EKG -1753--labs reassuring including negative troponin. BNP 114. -COVID/flu/RSV and rapid strep negative XR chest 2V IMPRESSION: No acute cardiopulmonary findings. > recommended prednisone however patient refused due to previous adverse reaction -Results discussed with patient including worrisome signs and symptoms and strict return precautions, and when to return to the emergency department. They verbalized understanding and feel safe for discharge at this time. Medical Decision Making Medical Decision Making MDM Narrative: 72-year-old female with a past medical history of dysphagia, asthma, HLD, DANIS on CPAP, pulmonary hypertension, HTN, hypothyroid, presenting to the ED complaining of fever T-max 102 degrees, productive cough, nasal congestion, SOB, and mild chest wall discomfort with cough x2 weeks. on exam vital signs stable, NAD, nontoxic appearing, lungs CTA, Oropharynx/ TMs WNL, no pedal edema soft calf tenderness. concern for viral syndrome vs pneumonia or bronchitis vs pharyngitis. Lower suspicion for ACS/ PE or CHF. Unlikely DVT/ PE. 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 Differential Diagnosis Differential Diagnoses: The differential diagnosis associated with the presentation includes As above Admission/Observation Consideration of admission/observation: Escalation of care including admission/observation considered Lab Data MDM Lab Attestation statement: I reviewed the patient's lab results. 06/21/23 15:09 06/21/23 15:09 Labs: Lab Results 06/21/23 06/21/23 06/21/23 Range/Units 15:05 15:08 15:09 WBC 11.4 H (4.8-10.8) X10*3/uL RBC 4.28 (4.20-5.50) X10*6/uL Hgb 12.5 (12.0-16.0) g/dl Hct 38.5 (37.0-47.0) % MCV 90.0 (80.0-98.0) fL MCH 29.2 (27.0-33.0) pg MCHC 32.5 (31.0-35.0) g/dl RDW 14.0 (11.0-16.0) % Plt Count 315 (160-400) X10*3/uL MPV 9.8 (9.4-12.3) fL Immature Gran % (Auto) 0.4 (0.0-0.4) % Neut % (Auto) 73.3 H (45-73) % Lymph % (Auto) 12.6 L (20-40) % [place] % (Auto) 8.9 (2-11) % Eos % (Auto) 4.1 H (0-4) % Baso % (Auto) 0.7 (0-2) % Lymph # (Auto) 1.4 (1.2-4.9) X10*3/uL [place] # (Auto) 1.0 (0.1-1.2) X10*3/uL Eos # (Auto) 0.5 H (0.0-0.4) X10*3/uL Baso # (Auto) 0.1 (0.0-0.2) X10*3/uL Abs Immat Gran (auto) 0.04 H (0.00-0.03) X10*3/uL Absolute Neuts (auto) 8.4 H (2.0-8.3) x10*3/uL Absolute Nucleated RBC 0.000 (0.0-0.012) X10*3/uL Nucleated RBC % (auto) 0.0 (0.0-0.2) /100WBC Sodium 139 (135-145) mmol/L Potassium 3.4 (3.3-5.1) mmol/L Chloride 103 (96-108) mmol/L Carbon Dioxide 28 (22-29) mmol/L Anion Gap 11 L (12-20) BUN 16 (9-16) mg/dL Creatinine 1.03 (0.5-1.4) mg/dL Estim Creat Clear Calc 50.3 Estimated GFR 53 Random Glucose 101 (60-115) mg/dL Calcium 9.5 (8.4-10.2) mg/dL Total Bilirubin 0.4 (0.0-1.0) mg/dL Direct Bilirubin 0.2 (0.0-0.5) mg/dL AST 20 (5-31) U/L ALT 14 (0-31) U/L Alkaline Phosphatase 101 (39-117) U/L Troponin I High Sens 3.9 (<3.5-17.0) ng/L B-Natriuretic Peptide 114 H (<100) pg/mL Total Protein 7.2 (6.5-8.0) g/dL Albumin 3.9 (3.5-5.0) g/dL Influenza Type A (PCR) NEGATIVE (Negative) Influenza Type B (PCR) NEGATIVE (Negative) RSV RNA Qual (PCR) NEGATIVE (Negative) SARS-CoV-2 RNA (RT-PCR) NEGATIVE (Negative) S. pyogenes GrpA RICO (Negative) 06/21/23 Range/Units 16:30 WBC (4.8-10.8) X10*3/uL RBC (4.20-5.50) X10*6/uL Hgb (12.0-16.0) g/dl Hct (37.0-47.0) % MCV (80.0-98.0) fL MCH (27.0-33.0) pg MCHC (31.0-35.0) g/dl RDW (11.0-16.0) % Plt Count (160-400) X10*3/uL MPV (9.4-12.3) fL Immature Gran % (Auto) (0.0-0.4) % Neut % (Auto) (45-73) % Lymph % (Auto) (20-40) % [place] % (Auto) (2-11) % Eos % (Auto) (0-4) % Baso % (Auto) (0-2) % Lymph # (Auto) (1.2-4.9) X10*3/uL [place] # (Auto) (0.1-1.2) X10*3/uL Eos # (Auto) (0.0-0.4) X10*3/uL Baso # (Auto) (0.0-0.2) X10*3/uL Abs Immat Gran (auto) (0.00-0.03) X10*3/uL Absolute Neuts (auto) (2.0-8.3) x10*3/uL Absolute Nucleated RBC (0.0-0.012) X10*3/uL Nucleated RBC % (auto) (0.0-0.2) /100WBC Sodium (135-145) mmol/L Potassium (3.3-5.1) mmol/L Chloride (96-108) mmol/L Carbon Dioxide (22-29) mmol/L Anion Gap (12-20) BUN (9-16) mg/dL Creatinine (0.5-1.4) mg/dL Estim Creat Clear Calc Estimated GFR Random Glucose (60-115) mg/dL Calcium (8.4-10.2) mg/dL Total Bilirubin (0.0-1.0) mg/dL Direct Bilirubin (0.0-0.5) mg/dL AST (5-31) U/L ALT (0-31) U/L Alkaline Phosphatase (39-117) U/L Troponin I High Sens (<3.5-17.0) ng/L B-Natriuretic Peptide (<100) pg/mL Total Protein (6.5-8.0) g/dL Albumin (3.5-5.0) g/dL Influenza Type A (PCR) (Negative) Influenza Type B (PCR) (Negative) RSV RNA Qual (PCR) (Negative) SARS-CoV-2 RNA (RT-PCR) (Negative) S. pyogenes GrpA RICO Negative (Negative) Independent Interpretation I performed an independent interpretation of an: EKG (My interpretation EKG normal sinus rhythm rate of 64. [place] interval 184. QTC 414. No significant change when compared to prior. No STEMI) Radiology Impression Discussion of test interpretation with radiology: I have reviewed the radiologist's reading. External Record Review External record reviewed: Inpatient record, Office record, Outpatient record, Prior outpatient labs, Prior outpatient radiology, Primary care record and Outside ED record Tests considered The following testing was considered but not selected: As above Chronic Conditions Patient?s care impacted by: Other (Asthma/COPD) Discharge Plan Discharge Clinical Impression: Bronchitis Patient Disposition: Home, Self-Care Instructions: Acute Bronchitis (ED) Additional Instructions: You tested negative for COVID, flu, strep. Your blood work is reassuring Your x-rays unremarkable You likely a bronchitis Zithromax and is an antibiotic please take as prescribed Please have close follow-up with her doctor Litzy Ortiz for cough If symptoms persist or worsen return to the ED Prescriptions: New azithromycin 250 mg tablet See Rx Instructions .ROUTE .COMPLEX Qty: 6 0RF Rx Instructions: take 500 mg today (day 1), then 250 mg for 4 days (days 2-5) benzonatate 100 mg capsule 100 mg PO TID PRN (Reason: cough) Qty: 14 0RF No Action labetalol 100 mg tablet 100 mg PO BID Qty: 180 3RF furosemide 40 mg tablet 40 mg PO DAILY Qty: 180 3RF omeprazole 40 mg capsule,delayed release(DR/EC) 40 mg PO BID Qty: 180 3RF spironolactone 25 mg tablet 50 mg PO DAILY Qty: 180 3RF oxybutynin chloride 5 mg tablet 5 mg PO BEDTIME Qty: 90 3RF fluconazole 100 mg tablet 100 mg PO DAILY Qty: 7 0RF levothyroxine 88 mcg tablet 88 mcg PO DAILY Qty: 90 0RF levothyroxine 88 mcg tablet 88 mcg PO DAILY Qty: 90 0RF ursodiol 500 mg tablet 500 mg PO BID Qty: 120 0RF montelukast [Singulair] 10 mg tablet 10 mg PO DAILY PRN (Reason: allergy symptoms) 90 Days Qty: 90 3RF lorazepam 1 mg tablet 1 mg PO BID PRN (Reason: anxiety) hydralazine 25 mg tablet 75 mg PO BEDTIME hydralazine 25 mg tablet 25 mg PO DAILY gabapentin 300 mg capsule 300 mg PO DAILY sertraline 100 mg tablet 100 mg PO DAILY (DME) compress.stocking,knee,reg,med Misc See Rx Instructions .ROUTE .MEDSUPPLY Qty: 2 0RF Rx Instructions: apply in the am and remove in the pm ropinirole 0.5 mg tablet 0.5 mg PO BEDTIME trazodone 50 mg tablet 100 mg PO BEDTIME buspirone 15 mg tablet 15 mg PO BID (DME) nebulizers Misc See Rx Instructions .Route Rx Instructions: As directed sodium fluoride-pot nitrate 1.1-5 % paste PO BEDTIME Aimovig Autoinjector 140 mg/mL auto-injector 140 mg subcut Q4W levalbuterol tartrate [Xopenex HFA] 45 mcg/actuation HFA aerosol inhaler 2 puff PO Q6H PRN (Reason: shortness of breath or wheezing) 30 Days Qty: 15 11RF amlodipine 10 mg tablet 10 mg PO QAM 90 Days Qty: 90 3RF Referrals: Celestina Zimmerman MD [Primary Care Provider] - 5 days
[2023-06-21 14:44] VITALS: BP 130/52; PULSE 71; RESP 18; TEMP 36.9; O2SAT 96; BMI 29.2
--- NOTE | 2023-06-21 14:45 | ECG_ITS ---
Test Reason : CP Blood Pressure : / mmHG Vent. Rate : 064 BPM Atrial Rate : 064 BPM P-R Int : 184 ms QRS Dur : 074 ms QT Int : 402 ms P-R-T Axes : 045 011 052 degrees QTc Int : 414 ms Normal sinus rhythm Possible Left atrial enlargement Borderline ECG When compared with ECG of 16-OCT-2022 05:08, No significant change was found Referred By: Zara Castillo Electronically Signed By:WANDA JOHNSON MD
[2023-06-21 15:12] LABS: MANUAL DIFF FLAG NO
[2023-06-21 15:15] LABS: Basophils Absolute Auto 0.1 X10*3/uL (0.0-0.2); Basophils Percent Auto 0.7 % (0-2); Eosinophils Absolute Auto 0.5 X10*3/uL (0.0-0.4); Eosinophils Percent Auto 4.1 % (0-4); Hematocrit 38.5 % (37.0-47.0); Hemoglobin 12.5 g/dl (12.0-16.0); Imm Gran Abs Auto 0.04 X10*3/uL (0.00-0.03); Imm Gran Pct Auto 0.4 % (0.0-0.4); Lymphocytes Absolute Auto 1.4 X10*3/uL (1.2-4.9); Lymphocytes Percent Auto 12.6 % (20-40); Mean Corpuscular HGB Conc 32.5 g/dl (31.0-35.0); Mean Corpuscular Hemoglobin 29.2 pg (27.0-33.0); Mean Platelet Volume 9.8 fL (9.4-12.3); Monocytes Percent Auto 8.9 % (2-11); Neutrophils Absolute Auto 8.4 x10*3/uL (2.0-8.3); Neutrophils Percent Auto 73.3 % (45-73); Platelet Count 315 X10*3/uL (160-400); Red Blood Count 4.28 X10*6/uL (4.20-5.50); White Blood Count 11.4 X10*3/uL (4.8-10.8)
[2023-06-21 15:28] LABS: Alanine Aminotransferase 14 U/L (0-31); Albumin Level 3.9 g/dL (3.5-5.0); Alkaline Phosphatase 101 U/L (39-117); Anion Gap 11 (12-20); Aspartate Amino Transferase 20 U/L (5-31); Bilirubin Direct 0.2 mg/dL (0.0-0.5); Bilirubin Total 0.4 mg/dL (0.0-1.0); Blood Urea Nitrogen 16 mg/dL (9-16); Calcium 9.5 mg/dL (8.4-10.2); Carbon Dioxide 28 mmol/L (22-29); Chloride 103 mmol/L (96-108); Creatinine Clr Calc Pharmacy 50.3; Estimated Glomerular Filt Rate 53; Glucose Random 101 mg/dL (60-115); Potassium 3.4 mmol/L (3.3-5.1); Sodium 139 mmol/L (135-145); Total Protein 7.2 g/dL (6.5-8.0)
[2023-06-21 15:34] LABS: B Type Natriuretic Peptide 114 pg/mL (<100); Troponin-I High Sensitivity 3.9 ng/L (<3.5-17.0)
[2023-06-21 15:59] LABS: Influenza A PCR NEGATIVE (Negative); Influenza B PCR NEGATIVE (Negative); Resp Syncy Virus RNA Qual PCR NEGATIVE (Negative); SARS COV2 PCR INHOUSE NEGATIVE (Negative)
[2023-06-21 16:43] LABS: IDNOW Serial# 08D9AD1C; Strep A Nucleic Acid Negative (Negative)
== END 2023-06-21 18:15 | disposition home or self-care (01) ==
PROVIDERS: Physician Assistant; Physician Assistant Medical; Emergency Provider Emergency Medicine; PCP Internal Medicine
DX: J40 Bronchitis, not specified as acute or chronic (principal); R50.9 Fever, unspecified; R05.9 Cough, unspecified; R06.02 Shortness of breath; R07.89 Other chest pain; Z87.891 Personal history of nicotine dependence; Z11.52 Encounter for screening for COVID-19; Z20.822 Contact with and (suspected) exposure to COVID-19; Z79.899 Other long term (current) drug therapy
CPT/HCPCS: 0241U; 36415; 71046; 80048; 80076; 83880; 84484; 85025; 87651; 93005; 99283

== ENCOUNTER 2023-06-30 11:39 | Outpatient (AMB) | payer MEDICARE, SELFPAY ==
--- NOTE | 2023-06-30 11:42 | A.OFFVIS_ITS ---
Intake Vital Signs 06/30/23 11:46 Height 5 ft 4 in Weight 174 lb BMI 29.9 BP 120/60 Blood Pressure Location Lt brachial Position Sitting Pulse 74 Pulse Source Pulse Oximeter Pulse Oximetry (%) 92 Oxygen Delivery Method Room Air Intake Visit Reasons: SWV [id number] Allergies gluten [GLUTEN] Allergy (Severe, Verified 06/30/23 11:47) ABD PAIN Sulfa (Sulfonamide Antibiotics) [SULFA(SULFONAMIDE ANTIBIOTICS)] Allergy (Severe, Verified 06/30/23 11:47) Rash mirtazapine Adverse Reaction (Severe, Verified 06/30/23 11:47) peripheral edema Medication List - Last Reconciled 06/30/23 by Celestina Zimmerman MD amlodipine 10 mg PO QAM 90 days benzonatate 100 mg PO TID PRN buspirone 15 mg PO BID compress.stocking,knee,reg,med apply in the am and remove in the pm erenumab-aooe (Aimovig Autoinjector) 140 mg subcut Q4W fluconazole 100 mg PO DAILY furosemide 40 mg PO DAILY gabapentin 300 mg PO DAILY hydralazine 75 mg PO BEDTIME hydralazine 25 mg PO DIRECTED labetalol 100 mg PO BID levalbuterol tartrate 45 mcg/actuation (Xopenex HFA) 2 puffs PO Q6H PRN 30 days levothyroxine 88 mcg PO DAILY levothyroxine 88 mcg PO DAILY lorazepam 1 mg PO BID PRN montelukast (Singulair) 10 mg PO DAILY PRN 90 days nebulizers As directed omeprazole 40 mg PO BID oxybutynin chloride 5 mg PO BEDTIME ropinirole 0.5 mg PO BEDTIME sertraline 100 mg PO DAILY sodium fluoride-pot nitrate 1.1-5 % PO BEDTIME spironolactone 50 mg (2 x 25 mg) PO DAILY trazodone 100 mg PO BEDTIME ursodiol 500 mg PO BID HPI SWV G0439 HPI Details Pt presents for annual. She complains sinus congestion postnasal drip productive cough with greenish sputum for 4 weeks. She took a Z-Deshaun a week ago without significant improvement. She denies fever pleurisy but reports dyspnea on exertion but no chest pain.Initiated the conversation about Advanced Directives. Advanced Directives help? patients prepare for current and future decisions about their medical treatment? and place of care. Discussed with patient that it is a process where a patients? current condition and prognosis are reviewed, their wishes for information? regarding their illness are elicited, and likely medical dilemmas are presented? and options discussed. The form can be amended as needed, reviewed yearly and? make changes as needed IPPE/AWV ? year old presents? for her ? Annual? Wellness Visit, initial visit.? Medical / Social History Reviewed? Past Medical History ?Yes? . ? [place]? of Care / Care Team list updated ?Yes . ? Surgical/Hospitalization? History ?Yes . ? Current Medications? (including OTC and supplements) ?Yes . ? Family History ?Yes? . ? Tobacco? Control form ?Yes . ? AUDIT-C (Alcohol use) form? ?Yes . ? Illicit drug use in Social? History ?Yes . ? Current diagnosis of? depression? ?No ? Appropriate PHQ2/PHQ9? completed ?Yes . ? Data entered by ?Medical? [employer] and reviewed by provider ? Fall Risk ? Fall? History? Have you had any falls with? injury in the past year? ?No . ? Have you had two or more? falls in the past year? ?No . ? Fall Risk Assessment: ?No? falls in the past year . ? HRA filled out by? the patient, reviewed by Provider and scanned. ? IPPE/AWV ? Balance? [place]? ?Yes . ? Tandem? walk ?Yes . ? Walk and? Turn ?Yes . ? Rise from? sit to stand ?Yes . ?Vision? Corrective? lens ?Yes ? Vision? screen ? Up-to-date, has an appointment [] for vision? screening and glaucoma screening ?Hearing? Whisper? test ?pass .? Initiated the conversation about Advanced Directives. Advanced Directives help? patients prepare for current and future decisions about their medical treatment? and place of care. Discussed with patient that it is a process where a patients? current condition and prognosis are reviewed, their wishes for information? regarding their illness are elicited, and likely medical dilemmas are presented? and options discussed. The form can be amended as needed, reviewed yearly and? make changes as needed Written? Plan?Completed. See Patient? Documents. [facility] Medical History Pulmonary nodule Pulmonary nodule Hearing loss Annual physical exam Dysphagia Vocal cord dysfunction Asthma-COPD overlap syndrome Weight gain Edema Urinary incontinence Asthma History of concussion Shortness of breath Lower extremity edema Dyspnea Hypoxemia requiring supplemental oxygen Nonspecific interstitial pneumonitis Peripheral neuropathy Psychiatric disorder Mammogram normal Hyperlipemia Pulmonary hypertension DANIS on CPAP Pneumonitis Orthostatic hypotension dysautonomic syndrome Hypothyroid HTN (hypertension) Celiac disease Diastolic CHF Surgical History Hx of esophagogastroduodenoscopy History of total abdominal hysterectomy and bilateral salpingo-oophorectomy Endometrial adenocarcinoma History of colonoscopy Family History Father Savita cell cancer HTN (hypertension) CVD (cardiovascular disease) Mother Crohn disease Cancer Maternal Grandfather No problems noted. Maternal Grandmother No problems noted. Paternal Grandfather CVD (cardiovascular disease) Paternal Grandmother COPD (chronic obstructive pulmonary disease) Brother No problems noted. Sister No problems noted. Daughter No problems noted. Social History Household Members: Spouse Housing: House Are you a primary care services manager to a significant other at home: No Do you presently have visiting nurse or other home services: No Alcohol intake: current Alcohol intake frequency: holidays/special occasions only Comment: pt resting Patient Tobacco Use Status: Former Tobacco user Quit Date: 1989 Tobacco use type: Cigarette Years Smoked: 2 e-Cigarette/Vaping Use: Never Used Second Hand Smoke Exposure: No service: No Current occupational status: retired Cognitive needs: No Hearing needs: Yes Vision needs: Yes Questionnaire Medicare Wellness Checkup [age] What gender do you identify with?: female During the past 4 weeks, how much have you been bothered by emotional problems such as feeling anxious, depressed, irritable, sad or downhearted, and blue?: not at all During the past 4 weeks, has your physical & emotional health limited your social activities with family, friends, neighbors, or groups?: not at all During the past 4 weeks, how much bodily pain have you generally had?: very mild pain During the past 4 weeks, was someone available to help you if you needed & wanted help?: yes, as much as I wanted During the past 4 weeks, what was the hardest physical activity you could do for at least 2 minutes?: light Can you get to places out of walking distance without help? (For eg., can you travel alone on buses, taxis or drive your car?): Yes Can you go shopping for groceries or clothes without someone's help?: Yes Can you prepare your own meals?: Yes Can you do your housework without help?: Yes Because of any health problems, do you need the help of another person with your personal care needs such as eating, bathing, dressing or getting around the house?: No Can you handle your own money without help?: Yes During the past 4 weeks, how would you rate your health in general?: good During the past 4 weeks how have things been going for you?: good & bad parts about equal Are you having difficulties driving your car?: no Do you always fasten your seat belt when you are in a car?: yes, usually During past 4 weeks, have you been bothered by the following: never: Falling or dizzy when standing up, Sexual problems? and Problems using the telephone? and sometimes: Trouble eating well?, Teeth or denture problems? and Tiredness or fatigue? Have you fallen 2 or more times in the past year?: No Are you afraid of falling?: Yes Are you a smoker?: no During the past 4 weeks, how many drinks of wine, beer, or other alcoholic beverages did you have?: no alcohol at all Do you exercise for about 20 minutes 3 or more times a week?: yes, most of the time Have you been given information to help with the following?: no: Hazards in your house that might hurt you? and no: Keeping track of your medications? How often do you have trouble taking medicines the way you have been told to take them?: I always take medicine as prescribed How confident are you that you can control & manage most of your health problems?: very confident What is your race?: White Mini Mental State Exam (MMSE) Orientation What is the (year) (season) (date) (day) (month)?: year, season, date, day and month Where are we (state) (county) (town or city) (hospital) (floor)?: state, county, town or city, hospital/clinic and floor Registration Name of 3 unrelated objects clearly and slowly, then ask patient to repeat all 3 of them. (1st repeat determines score. Make sure they can repeat all three): object 1, object 2 and object 3 Attention & Calculation (CHOOSE ONE) Spell WORLD backwards (DLROW): 5 letters Recall Ask patient to repeat the 3 items from question #3.: object 1, object 2 and object 3 Language Show patient a wristwatch & ask what it is. Repeat for pencil.: watch and pencil Ask the patient to repeat the phrase 'No ifs, ands, or buts' after you.: correct Ask the patient to 'take a piece of paper with their right hand' 'fold paper in half' 'place paper on floor': take paper in right hand, fold paper in half and place paper on floor Print the sentence 'CLOSE YOUR EYES' on a piece. If patient actually closes eyes then score.: followed written direction Give patient a blank piece of paper & ask to write a sentence. Score if it contains a noun & verb.: sentence contains subject and verb Ask patient to copy figure of intersecting pentagons exactly. Score if all 10 angles & 2 intersects are included.: all 10 angles present & 2 are intersected Score Score: 30 PHQ-9 Over the last 2 weeks, how often have you been bothered by any of the following problems? 1. Little interest or pleasure in doing things: nearly every day 2. Feeling down, depressed, or hopeless: several days 3. Trouble falling or staying asleep, or sleeping too much: not at all 4. Feeling tired or having little energy: not at all 5. Poor appetite or overeating: nearly every day 6. Feeling bad about yourself - or that you are a failure or have let yourself or your family down: not at all 7. Trouble concentrating on things, such as reading the newspaper or watching television: more than half the days 8. Moving or speaking so slowly that other people could have noticed. Or the opposite - being so fidgety or restless that you have been moving around a lot more than usual: not at all 9. Thoughts that you would be better off or of hurting yourself in some way: not at all Total score: 9 Depression Screening Interpretation: Positive Depression Screening Done: Yes 80338 - PHQ-9 Billing: Yes Source: Developed by Drs. Judson Bravo, Breonna Fernandez, Jared Johnson and colleagues, with an educational shola from [employer] Review of Systems Const All systems reviewed & are unremarkable except as noted in HPI and below Reports no additional complaints Eyes Reports no additional complaints ENT Reports no additional complaints Card Reports no additional complaints Resp Reports no additional complaints GI Reports no additional complaints Reports no additional complaints Physical Exam Vital Signs: Last Vital Signs Pulse 74 06/30/23 11:46 BP 120/60 06/30/23 11:46 Pulse Ox 92 06/30/23 11:46 Oxygen Delivery Method Room Air 06/30/23 11:46 BMI result Body Mass Index 29.9 Const General: no acute distress HEENT Head: Yes normal to inspection Ears: hearing grossly normal bilaterally Eyes General: appearance normal, both eyes and all related structures Neck Neck: Yes no lymphadenopathy and Yes supple Resp Effort & Inspection: normal respiratory effort and able to speak in complete sentences Auscultation: clear to auscultation bilaterally Cardio Rhythm: regular rhythm Heart sounds: S1 normal heart sound present and S2 normal heart sound present GI Inspection: Yes normal to inspection Palpation (GI): Soft to palpation Percussion: Yes normal to percussion Auscultation: normal bowel sounds Assessment & Plan Assessment & Plan (1) Annual physical exam: Code(s): Z00.00 - Encounter for general adult medical examination without abnormal findings Plan: Well-balanced diet, regular exercise discussed with the patient. She is up-to-date with the mammogram and colonoscopy (2) Asthma-COPD overlap syndrome: Comment: Inhaled steroids caused thrush Code(s): J44.9 - Chronic obstructive pulmonary disease, unspecified Plan: cont Breo (3) Hypothyroid: Code(s): E03.9 - Hypothyroidism, unspecified Plan: cont Levothyroxine (4) Diastolic dysfunction: Comment: ECHO 11/21 LVEF 69%, diastolic disfunction, nl valves Code(s): I51.89 - Other ill-defined heart diseases Plan: cont current meds, f/u with cardiology (5) Orthostatic hypotension dysautonomic syndrome: Code(s): G90.3 - Multi-system degeneration of the autonomic nervous system Plan: cont meds, f/u with cardiology (6) Anxiety and depression: Comment: /U WITH PSYCHIATRY Code(s): F41.9 - Anxiety disorder, unspecified; F32.A - Depression, unspecified Plan: cont meds Orders: Orders Complete Blood Count Auto Diff 6 Months F32.A - Depression, unspecified, F41.9 - Anxiety disorder, unspecified, G90.3 - Multi-system degeneration of the autonomic nervous system, I51.89 - Other ill-defined heart diseases, J44.9 - Chronic obstructive pulmonary disease, unspecified Comprehensive [place]. Panel Fast 6 Months F32.A - Depression, unspecified, F41.9 - Anxiety disorder, unspecified, G90.3 - Multi-system degeneration of the autonomic nervous system, I51.89 - Other ill-defined heart diseases, J44.9 - Chronic obstructive pulmonary disease, unspecified Lipid Panel 6 Months F32.A - Depression, unspecified, F41.9 - Anxiety disorder, unspecified, G90.3 - Multi-system degeneration of the autonomic nervous system, I51.89 - Other ill-defined heart diseases, J44.9 - Chronic obstructive pulmonary disease, unspecified TSH reflex Free T4 6 Months F32.A - Depression, unspecified, F41.9 - Anxiety disorder, unspecified, G90.3 - Multi-system degeneration of the autonomic nervous system, I51.89 - Other ill-defined heart diseases, J44.9 - Chronic obstructive pulmonary disease, unspecified B Type Natriuretic Peptide 6 Months F32.A - Depression, unspecified, F41.9 - Anxiety disorder, unspecified, G90.3 - Multi-system degeneration of the autonomic nervous system, I51.89 - Other ill-defined heart diseases, J44.9 - Chronic obstructive pulmonary disease, unspecified Vitamin D 25-OH Total 6 Months F32.A - Depression, unspecified, F41.9 - Anxiety disorder, unspecified, G90.3 - Multi-system degeneration of the autonomic nervous system, I51.89 - Other ill-defined heart diseases, J44.9 - Chronic obstructive pulmonary disease, unspecified Medications: New amoxicillin-pot clavulanate 500-125 mg (Augmentin) 1 tab PO BID 20 tabs 0RF Quality Reporting (2019) Depression/Bipolar (159/160/161/177) PHQ-9: Total score: 9 Coding Level of Care Code Medicare Subsequent (G0439) Diagnoses Annual physical exam Z00.00 Asthma-COPD overlap syndrome J44.9 Hypothyroid E03.9 Diastolic dysfunction I51.89 Orthostatic hypotension dysautonomic syndrome G90.3 Anxiety and depression F41.9; F32.A CPT Codes Advance Care Planning - Time spent: 1-15 minutes, not on file ([id number]) Advance Care Planning Forms completed: Health Care Proxy Time spent: 1-15 minutes, not on file
[2023-06-30 11:46] VITALS: BP 120/60; PULSE 74; O2SAT 92; BMI 29.9
== END 2023-06-30 12:44 | disposition home or self-care (01) ==
LOC: HO.HMGC 11:39
PROVIDERS: PCP Internal Medicine; Visit Provider Internal Medicine
DX: Z00.00 Encounter for general adult medical examination without abnormal findings (principal); J44.9 Chronic obstructive pulmonary disease, unspecified; G90.3 Multi-system degeneration of the autonomic nervous system; E03.9 Hypothyroidism, unspecified; I51.89 Other ill-defined heart diseases; F41.9 Anxiety disorder, unspecified; F32.A Depression, unspecified
CPT/HCPCS: 1124F; G0439

== ENCOUNTER → 2023-07-04 10:49 | Outpatient (BNVA) | payer MEDICARE, SELFPAY | PROVIDERS: PCP Internal Medicine; Visit Provider Internal Medicine Gastroenterology ==

== ENCOUNTER 2023-07-04 11:33 | Outpatient (AMB) | payer MEDICARE, SELFPAY ==
--- NOTE | 2023-07-04 10:49 | MHC.OFFVIS ---
Intake Intake Visit Reasons: 4 month follow up Intake Note: Sana presents as a telehealth today. CC: She states that we are aware of her issues swallowing but was told that theres not really anything to do about it but she does experience dry mouth. Allergies gluten [GLUTEN] Allergy (Severe, Verified 07/04/23 11:34) ABD PAIN Sulfa (Sulfonamide Antibiotics) [SULFA(SULFONAMIDE ANTIBIOTICS)] Allergy (Severe, Verified 07/04/23 11:34) Rash mirtazapine Adverse Reaction (Severe, Verified 07/04/23 11:34) peripheral edema HPI 4 month follow up HPI Details 72 yr old f called for f/u ISSUES: 1/ Dysphagia: No changes in her sx still choking and having regurgitation not heard from [facility] TESTS: she had EGD at [facility] with nml biopsies, EMS with high IRP, otherwise nml per paperwork, EGD 04/2021-- nml duodenal bx, nml esophgeal bx, hyperplastic/fundic polyp removed Ba swallow 01/2021-- severe esophageal dysmotility, prolonged stasis, no gerd, swallowing mechanism GES--nml 2/Abn LFT: Was placed on urosdiol and LFT haven been nml TESTS: US 08/2022-- cholelithiasis noted rept LFT 10/22/22- normal and also on 06/2023 neg celiac, neg LKM, neg LINDA A/P: 1/ Dysphagia--possible 2/2 IEM, ddx achalasia, no features of CREST etc on exam, refractory or partially controlled GERD--high IRP per [facility] notes 2/ abn LFT< neg LINDA, AMA, neg celiac, recent LFT nml--on ursodiol Plan; 1/ esophgeal manometry as originally planned but try CDH instead, in the meantime will get EGD with savary dilation here --check for inlet patch and treat if present [facility] Medical History Pulmonary nodule Pulmonary nodule Hearing loss Annual physical exam Dysphagia Vocal cord dysfunction Asthma-COPD overlap syndrome Weight gain Edema Urinary incontinence Asthma History of concussion Shortness of breath Lower extremity edema Dyspnea Hypoxemia requiring supplemental oxygen Nonspecific interstitial pneumonitis Peripheral neuropathy Psychiatric disorder Mammogram normal Hyperlipemia Pulmonary hypertension DANIS on CPAP Pneumonitis Orthostatic hypotension dysautonomic syndrome Hypothyroid HTN (hypertension) Celiac disease Diastolic CHF Surgical History Hx of esophagogastroduodenoscopy History of total abdominal hysterectomy and bilateral salpingo-oophorectomy Endometrial adenocarcinoma History of colonoscopy Family History Father Savita cell cancer HTN (hypertension) CVD (cardiovascular disease) Mother Crohn disease Cancer Maternal Grandfather No problems noted. Maternal Grandmother No problems noted. Paternal Grandfather CVD (cardiovascular disease) Paternal Grandmother COPD (chronic obstructive pulmonary disease) Brother No problems noted. Sister No problems noted. Daughter No problems noted. Social History Household Members: Spouse Housing: House Are you a primary childbirth and infant care teacher to a significant other at home: No Do you presently have visiting nurse or other home services: No Alcohol intake: current Alcohol intake frequency: holidays/special occasions only Comment: pt resting Patient Tobacco Use Status: Former Tobacco user Quit Date: 1989 Tobacco use type: Cigarette Years Smoked: 2 e-Cigarette/Vaping Use: Never Used Second Hand Smoke Exposure: No service: No Current occupational status: retired Cognitive needs: No Hearing needs: Yes Vision needs: Yes Assessment & Plan Assessment & Plan (1) Dysphagia: Code(s): R13.10 - Dysphagia, unspecified Plan: A/P: 1/ Dysphagia--possible 2/2 IEM, ddx achalasia, no features of CREST etc on exam, refractory or partially controlled GERD--high IRP per [facility] notes 2/ abn LFT< neg LINDA, AMA, neg celiac, recent LFT nml--on ursodiol Plan; 1/ esophgeal manometry as originally planned but try CDH instead, in the meantime will get EGD with savary dilation here --check for inlet patch and treat if present Telehealth Telehealth Location of provider rendering services: practice address Location of patient: address on file Patient Identification confirmed using: Name, : Yes Telehealth method: voice only Patient verbally consented to treatment: Yes Patient verbally consented to billing insurance company: Yes Patient informed of any privacy concerns related to visit: Yes Minutes spent on Phone/Video with Pt.: 11 Coding Level of Care Code Tele Est Pt Level 3 (06003) Diagnoses Dysphagia R13.10
== END 2023-07-04 13:36 | disposition home or self-care (01) ==
PROVIDERS: PCP Internal Medicine; Visit Provider Internal Medicine Gastroenterology
DX: R13.10 Dysphagia, unspecified (principal); R74.01 Elevation of levels of liver transaminase levels
CPT/HCPCS: 99442

== ENCOUNTER 2023-07-14 11:50 | Day surgery (SDC) | payer MEDICARE, SELFPAY ==
[2023-07-14] VITALS (9 sets, daily range): BP systolic 133–159; BP diastolic 60–81; PULSE 66–89; RESP 16–22; TEMP 36–36.3; O2SAT 91–97; BMI 29.7
--- NOTE | 2023-07-14 12:10 | P.HPSUR_ITS ---
Pre-Procedural Eval Section A Date of Service: 07/14/23 Section B Chief Complaint: Dysphagia, unspecified Relevant Family History (Specify if Yes): No Relevant Social History: None Present Medications: see Short Stay Collaborative assessment Medical History: Significant History (Pulmonary nodule Hearing loss Annual physical exam Dysphagia Vocal cord dysfunction Asthma-COPD overlap syndrome Weight gain Edema Urinary incontinence Asthma History of concussion Shortness of breath Lower extremity edema Dyspnea Hypoxemia requiring supplemental oxygen Nonspecific interstitial pneu) History of Previous Operations: Relevant previous surgery/procedure and date(s) (Hx of esophagogastroduodenoscopy History of total abdominal hysterectomy and bilateral salpingo-oophorectomy Endometrial adenocarcinoma History of colonoscopy) Allergies: Allergies Allergy/AdvReac Type Severity Reaction Status Date / Time gluten [GLUTEN] Allergy Severe ABD PAIN Verified 07/04/23 11:34 Sulfa (Sulfonamide Allergy Severe Rash Verified 07/04/23 11:34 Antibiotics) [SULFA(SULFONAMIDE ANTIBIOTICS)] mirtazapine AdvReac Severe peripheral Verified 07/04/23 11:34 edema Review of Systems Sugical H&P ROS: Negative: Constitution, Cardiovascular, Respiratory, Ne urological, Psychiatric, Hem-Onc, Allergic/Immunologic, Gastrointestinal, Genitourinary, Musculoskeletal, Integumentary, Endocrine and Eyes/Ears/Nose/Throat Exam Surgical H&P Exam: Normal: HEENT, Normal: Heart, Normal: Lungs, Normal: Extremities, Normal: Abdomen, Normal: Skin and Normal: Neurological Plan Diagnosis/Plan: Unchanged I have reviewed the history and physical and performed a pertinent physical examination on my patient. No changes have occurred unless specified. Time Spent With Patient Time: Total time managing care of this patient today ____ minutes.
--- NOTE | 2023-07-14 12:14 | HO.ANESPROP2 ---
HPI - Anesthesia Eval Consult details Narrative: EGD PMFSH Active Problems Active Problems: All Active Problems (Updated 06/30/23 @ 12:58 by Celestina Zimmerman MD) Anxiety and depression (Acute) Dry mouth (Acute) Neck pain (Acute) Cellulitis (Acute) Acute respiratory failure with hypoxia (Acute) Bronchiectasis (Acute) Cough (Acute) Sinusitis (Acute) Hepatitis C antibody positive in blood (Acute) Elevated LFTs (Acute) Postmenopausal (Acute) UTI (urinary tract infection) (Acute) Pelvic fracture (Acute) Pulmonary nodule (Acute) Pulmonary nodule (Acute) Shingles rash (Acute) Hyperlipemia (Acute) Hearing loss (Acute) Mouth sores (Acute) Schatzki's ring (Acute) Annual physical exam (Acute) Esophageal dysmotility (Acute) GERD (gastroesophageal reflux disease) (Acute) Dysphagia (Acute) Vocal cord dysfunction (Acute) Asthma-COPD overlap syndrome (Acute) Weight gain (Acute) Edema (Acute) Shortness of breath (Acute) Allergic rhinitis (Acute) Bronchitis (Acute) Urinary incontinence (Acute) Asthma (Acute) Hypothyroid (Acute) Diastolic dysfunction (Acute) Suspected COVID-19 virus infection (Acute) SOB (shortness of breath) on exertion (Acute) Thrush (Acute) Irritable bowel syndrome with diarrhea (Acute) Colon cancer screening (Acute) Pre-employment health screening examination (Acute) Dyspnea (Acute) Diastolic CHF (Acute) Pneumonitis (Acute) Mammogram normal (Acute) DANIS on CPAP (Acute) Orthostatic hypotension dysautonomic syndrome (Acute) Celiac disease (Acute) Past Medical History Medical History Pulmonary nodule Pulmonary nodule Hearing loss Annual physical exam Dysphagia Vocal cord dysfunction Asthma-COPD overlap syndrome Weight gain Edema Urinary incontinence Asthma History of concussion Shortness of breath Lower extremity edema Dyspnea Hypoxemia requiring supplemental oxygen Nonspecific interstitial pneumonitis Peripheral neuropathy Psychiatric disorder Mammogram normal Hyperlipemia Pulmonary hypertension DANIS on CPAP Pneumonitis Orthostatic hypotension dysautonomic syndrome Hypothyroid HTN (hypertension) Celiac disease Diastolic CHF Family History Family History Father Savita cell cancer HTN (hypertension) CVD (cardiovascular disease) Mother Crohn disease Cancer Maternal Grandfather No problems noted. Maternal Grandmother No problems noted. Paternal Grandfather CVD (cardiovascular disease) Paternal Grandmother COPD (chronic obstructive pulmonary disease) Brother No problems noted. Sister No problems noted. Daughter No problems noted. Family history of problems with anesthesia: No Surgical History Surgical History Hx of esophagogastroduodenoscopy History of total abdominal hysterectomy and bilateral salpingo-oophorectomy Endometrial adenocarcinoma History of colonoscopy History of Problems with Anesthesia: No Social History Social History Household Members: Spouse Housing: House Are you a primary assisted living care manager to a significant other at home: No Do you presently have visiting nurse or other home services: No Alcohol intake: current Alcohol intake frequency: holidays/special occasions only Comment: pt resting Patient Tobacco Use Status: Former Tobacco user Quit Date: 1989 Tobacco use type: Cigarette Years Smoked: 2 e-Cigarette/Vaping Use: Never Used Second Hand Smoke Exposure: No Advance Directives: No Advance Directives Information Provided: Yes service: No Current occupational status: retired Cognitive needs: No Hearing needs: Yes Vision needs: Yes Meds Allergies Allergy/AdvReac Type Severity Reaction Status Date / Time gluten [GLUTEN] Allergy Severe ABD PAIN Verified 07/04/23 11:34 Sulfa (Sulfonamide Allergy Severe Rash Verified 07/04/23 11:34 Antibiotics) [SULFA(SULFONAMIDE ANTIBIOTICS)] mirtazapine AdvReac Severe peripheral Verified 07/04/23 11:34 edema Home Medications Medication Instructions Recorded Confirmed Last Taken Type sertraline 100 mg tablet 100 mg PO DAILY 05/06/21 06/30/23 Unknown History buspirone 15 mg tablet 15 mg PO BID 06/08/22 06/30/23 Unknown History gabapentin 300 mg capsule 300 mg PO DAILY 10/16/22 06/30/23 Unknown History hydralazine 25 mg tablet 75 mg PO BEDTIME 10/16/22 06/30/23 Unknown History erenumab-aooe 140 mg/mL 140 mg subcut Q4W 11/08/22 06/30/23 Unknown History subcutaneous auto-injector (Aimovig Autoinjector) nebulizers 11/08/22 06/30/23 Unknown History sodium fluoride 1.1 %-potassium PO BEDTIME 11/08/22 06/30/23 Unknown History nitrate 5 % dental paste ropinirole 0.5 mg tablet 0.5 mg PO BEDTIME 11/22/22 06/30/23 Unknown History gabapentin 100 mg capsule 100 mg PO TID 07/04/23 Unknown History lorazepam 0.5 mg tablet 0.5 mg PO QID PRN 07/04/23 Unknown History trazodone 100 mg tablet 100 mg PO BEDTIME 07/04/23 Unknown History Exam Airway Mallampati Class: II TM Dist: >3cm Neck ROM: Limited Heart: ttt Lungs: cta Assessment and Plan Assessment Anesthesia Assessment: Anesthesia Plan Discussed Final Anesthetic Review Family History of Problems with Anesthesia: No History of Problems with Anesthesia: No NPO: Yes ASA Class: IV Final Preanesthetic Review: No Changes in Pt Med Stat, Meds/Allgs Chart Reviewed, Consent Obtained/Reviewed and Anes Risks/Benef Reviewed Patient Risk: High Procedure Risk: Intermediate Anesthetic Plan Anesthetic Plan: GA and Agree w/ Assess. and Plan Disposition: Standard PACU
--- NOTE | 2023-07-14 12:25 | PC.NURSE ---
Pt Sa02 noted to be 88-93 on RA. Pt reports recent URI. Per Dr Elda murdock to proceed with planned procedure after review of medical history.
--- NOTE | 2023-07-14 12:58 | P.OP_ITS ---
Operative Note Operative Note Date of Service: 07/14/23 Narrative: Procedure Description: EGD Indication: dysphagia Anesthesia: MAC then had to go to GA due to spasm FLEXIBLE TRANSORAL UPPER GASTROINTESTINAL ENDOSCOPY UPPER ENDOSCOPY Consent: Indications for the procedure and potential complications of bleeding, perforation, reaction to medications and missed diagnosis were discussed with the patient and informed consent was obtained. Instrument: Olympus GIF H 190 J mid size upper endoscope Monitoring: Vital signs and clinical assessment, continuous EKG monitoring, Pulse oximetry, Carbon Dioxide monitoring and blood pressure monitoring were done throughout the procedure. Procedure: The patient was placed in the left lateral decubitis position and pre-procedure medications were administered and a bite block was placed. The endoscope was inserted into the mouth and advanced under direct vision to the third part of duodenum. A careful inspection was made as the upper endoscope was withdrawn including a retroflexed examination of the proximal stomach; Findings and interventions are described below. Findings: Larynx:normal Esophagus: GE junction at 33 cm, diaphragm hiatus at 33 cm, savary wire guided dilation of esophagus using 17 mmbougie with no tears seen Stomach: Patchy gastric erythema with scarring and atrophy. Biopsies were obtained. Grade 2 flap valve on retroflexed examination of the cardia. Duodenum: Normal bulb and descending duodenum, Intervention: Biopsies as noted above, Savary wire dilation Impression/Findings: atrophic gastritis PLAN: Cont with PPI manometry studies -referral sent to [facility]-pending magic mouthwash
[2023-07-14] MEDS: Albuterol Sulfate 2.5 MG, Albuterol/Iprat 2.5/0.5MG 3 ML 3 ML INHALE (13:54)
[2023-07-14] MEDS: Mag&Al/Sim/Diphenhyd/Lidocaine 10 ML ORAL.SUSP PO (13:54)
== END 2023-07-14 15:04 | disposition home or self-care (01) ==
PROVIDERS: PCP Internal Medicine; Visit Provider Internal Medicine Gastroenterology
PROC: 0DJ08ZZ Inspection of Upper Intestinal Tract, Via Natural or Artificial Opening Endoscopic (ICD-10-PCS; CPT 43235; principal; 2023-07-14 14:50)
DX: K29.40 Chronic atrophic gastritis without bleeding (principal); K22.4 Dyskinesia of esophagus; R13.10 Dysphagia, unspecified; K21.9 Gastro-esophageal reflux disease without esophagitis; K90.0 Celiac disease; J38.3 Other diseases of vocal cords; I11.0 Hypertensive heart disease with heart failure; I50.30 Unspecified diastolic (congestive) heart failure; E78.5 Hyperlipidemia, unspecified; J96.01 Acute respiratory failure with hypoxia; J44.9 Chronic obstructive pulmonary disease, unspecified; G47.33 Obstructive sleep apnea (adult) (pediatric); Z99.89 Dependence on other enabling machines and devices; Z87.891 Personal history of nicotine dependence; Z79.899 Other long term (current) drug therapy
CPT/HCPCS: 43248; 43239; 88305; 88342; C1769; J0330; J2704

== ENCOUNTER → 2023-07-14 11:50 | Outpatient (BNV) | payer MEDICARE, SELFPAY | PROVIDERS: PCP Internal Medicine; Visit Provider Internal Medicine Gastroenterology | DX: I69.191 Dysphagia following nontraumatic intracerebral hemorrhage (principal) | CPT/HCPCS: 43248 ==

== ENCOUNTER 2023-07-19 12:56 | Outpatient (AMB) | payer MEDICARE, SELFPAY ==
[2023-07-19 13:01] VITALS: BP 130/64; PULSE 60; BMI 29.0
--- NOTE | 2023-07-19 13:01 | A.OFFVIS_ITS ---
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: No Allergies gluten [GLUTEN] Allergy (Severe, Verified 07/19/23 13:03) ABD PAIN Sulfa (Sulfonamide Antibiotics) [SULFA(SULFONAMIDE ANTIBIOTICS)] Allergy (Severe, Verified 07/19/23 13:03) Rash mirtazapine Adverse Reaction (Severe, Verified 07/19/23 13:03) peripheral edema Medication List - Last Reconciled 07/19/23 by BRYAN Catalan amlodipine 10 mg PO QAM 90 days compress.stocking,knee,reg,med apply in the am and remove in the pm furosemide 40 mg PO DAILY gabapentin 300 mg PO DAILY gabapentin 100 mg PO TID hydralazine 75 mg PO BEDTIME hydralazine 25 mg PO DIRECTED labetalol 100 mg PO BID levalbuterol tartrate 45 mcg/actuation (Xopenex HFA) 2 puffs PO Q6H PRN 30 days levothyroxine 88 mcg PO DAILY lorazepam 0.5 mg PO QID PRN montelukast (Singulair) 10 mg PO DAILY PRN 90 days nebulizers As directed omeprazole 40 mg PO BID oxybutynin chloride 5 mg PO BEDTIME pilocarpine HCl 5 mg PO TID ropinirole 0.5 mg PO BEDTIME sertraline 100 mg PO DAILY sodium fluoride-pot nitrate 1.1-5 % PO BEDTIME spironolactone 50 mg (2 x 25 mg) PO DAILY trazodone 100 mg PO BEDTIME PRN ursodiol 500 mg PO BID HPI r/s 6 month follow-up HPI Details Sana is a 72-year-old female past medical history of hypertension, h yperlipidemia, sleep apnea with CPAP use, orthostatic hypotension, diastolic heart failure who presents for follow-up. Today she reports she has been doing well since her last visit in December. She has mild shortness of breath at times which is not new. She follows with pulmonology. No recent issues with leg edema. No chest discomfort at rest with activity. No heart palpitations, presyncope, syncope, falls, PND or orthopnea. Taking all meds as directed. [facility] Medical History Pulmonary nodule Pulmonary nodule Hearing loss Annual physical exam Dysphagia Vocal cord dysfunction Asthma-COPD overlap syndrome Weight gain Edema Urinary incontinence Asthma History of concussion Shortness of breath Lower extremity edema Dyspnea Hypoxemia requiring supplemental oxygen Nonspecific interstitial pneumonitis Peripheral neuropathy Psychiatric disorder Mammogram normal Hyperlipemia Pulmonary hypertension DANIS on CPAP Pneumonitis Orthostatic hypotension dysautonomic syndrome Hypothyroid HTN (hypertension) Celiac disease Diastolic CHF Surgical History Hx of esophagogastroduodenoscopy History of total abdominal hysterectomy and bilateral salpingo-oophorectomy Endometrial adenocarcinoma History of colonoscopy Family History Father Savita cell cancer HTN (hypertension) CVD (cardiovascular disease) Mother Crohn disease Cancer Maternal Grandfather No problems noted. Maternal Grandmother No problems noted. Paternal Grandfather CVD (cardiovascular disease) Paternal Grandmother COPD (chronic obstructive pulmonary disease) Brother No problems noted. Sister No problems noted. Daughter No problems noted. Social History Household Members: Spouse Housing: House Are you a primary healthcare representative to a significant other at home: No Do you presently have visiting nurse or other home services: No Alcohol intake: current Alcohol intake frequency: holidays/special occasions only Comment: pt resting Patient Tobacco Use Status: Former Tobacco user Quit Date: 1989 Tobacco use type: Cigarette Years Smoked: 2 e-Cigarette/Vaping Use: Never Used Second Hand Smoke Exposure: No service: No Current occupational status: retired Cognitive needs: No Hearing needs: Yes Vision needs: Yes Review of Systems Const All systems reviewed & are unremarkable except as noted in HPI and below ENT Denies dizziness Card Denies chest pain, Denies chest pain at rest, Denies chest pain with activity, Denies rapid heart rate, Denies pedal edema, Denies edema, Denies leg edema, Denies lightheadedness, Denies palpitations, Denies dyspnea, Denies dyspnea on exertion and Denies orthopnea Resp Denies cough, Denies dyspnea and Denies dyspnea on exertion GI Denies hematochezia and Denies change in stool character Musc Denies abnormal gait, Denies limited range of motion, Denies muscle cramps, Denies muscle weakness, Denies numbness, Denies radiating pain into limb, Denies stiffness and Denies tingling Neuro Denies abnormal gait, Denies dizziness, Denies numbness and Denies tingling Endo Denies palpitations Physical Exam Vital Signs: Last Vital Signs Pulse 60 07/19/23 13:01 BP 130/64 07/19/23 13:01 BMI result Body Mass Index 29.0 Const General: cooperative, healthy appearing, comfortable and no acute distress Orientation/consciousness: patient oriented x3 Neck Neck: Yes normal visual inspection Resp Effort & Inspection: normal respiratory effort Auscultation: clear to auscultation bilaterally, no crackles, no rales, no rhonchi and no wheezes Cardio Jugular venous distension: no JVD Rate: regular rate Rhythm: regular rhythm Heart sounds: S1 normal heart sound present, S2 normal heart sound present, no murmurs and no rubs Neuro General: patient oriented x3 Extrem General: Yes normal to inspection Psych Appearance: grossly normal Mental Status: mental status grossly normal Speech and movement: Normal speech and movement present Assessment & Plan Assessment & Plan (1) Diastolic CHF: Comment: Echo 2020 nl EF Code(s): I50.30 - Unspecified diastolic (congestive) heart failure Qualifiers: Heart failure chronicity: acute on chronic Qualified Code(s): I50.33 - Acute on chronic diastolic (congestive) heart failure Plan: History of diastolic heart failure. Last echocardiogram done 11/18/2022 shows EF 69%, grade 1 diastolic dysfunction, no valve abnormalities. Diastolic function previously had been grade 2. Her condition is currently stable on Lasix 40 mg daily, Aldactone 50 mg daily. She does follow with pulmonology for her lung issues. She has been compliant with her CPAP mask at night for sleep apnea. Signs and symptoms of heart failure reviewed. Cardiology follow-up in 6 months, sooner if needed. (2) Diastolic dysfunction: Comment: ECHO 11/21 LVEF 69%, diastolic disfunction, nl valves Code(s): I51.89 - Other ill-defined heart diseases Plan: As above (3) Orthostatic hypotension dysautonomic syndrome: Code(s): G90.3 - Multi-system degeneration of the autonomic nervous system Plan: Stable at present. No recent issues with lightheadedness, presyncope, syncope, falls. Blood pressure in the normal range. Continues on hydralazine 75 mg in the evening and takes 25 as needed in the daytime. Continues on Aldactone and amlodipine. Does not wear compression stockings as she does not feel they help her. No med changes made today Plan Time spent on chart review, documentation, interview and assessment Coding Level of Care Code Est Pt Level 4 (11491) Diagnoses Diastolic CHF I50.33 Heart failure chronicity: acute on chronic Diastolic dysfunction I51.89 Orthostatic hypotension dysautonomic syndrome G90.3 Time Spent (min) 28
== END 2023-07-19 13:32 | disposition home or self-care (01) ==
PROVIDERS: PCP Internal Medicine; Visit Provider Nurse Practitioner Family
DX: I50.33 Acute on chronic diastolic (congestive) heart failure (principal); I51.89 Other ill-defined heart diseases; G90.3 Multi-system degeneration of the autonomic nervous system
CPT/HCPCS: 99214

== ENCOUNTER → 2023-07-19 12:56 | Outpatient (BNVA) | payer MEDICARE, SELFPAY | PROVIDERS: PCP Internal Medicine; Visit Provider Nurse Practitioner Family | DX: I50.33 Acute on chronic diastolic (congestive) heart failure (principal); I51.89 Other ill-defined heart diseases; G90.3 Multi-system degeneration of the autonomic nervous system | CPT/HCPCS: 99212 ==

== ENCOUNTER 2023-08-19 15:15 | Outpatient (REF) | payer MEDICARE, SELFPAY ==
[2023-08-20 12:17] LABS: Influenza A PCR NEGATIVE (Negative); Influenza B PCR NEGATIVE (Negative); Resp Syncy Virus RNA Qual PCR NEGATIVE (Negative); SARS COV2 PCR INHOUSE NEGATIVE (Negative)
== END 2023-08-19 15:16 | disposition home or self-care (01) ==
LOC: HO.HMGCLNP 15:15
PROVIDERS: Visit Provider Nurse Practitioner Family
DX: Z11.52 Encounter for screening for COVID-19 (principal); Z20.822 Contact with and (suspected) exposure to COVID-19; J01.90 Acute sinusitis, unspecified
CPT/HCPCS: 0241U

== ENCOUNTER 2023-08-19 15:15 | Outpatient (AMB) | payer MEDICARE, SELFPAY ==
--- NOTE | 2023-08-19 15:16 | AM.OFFWIN_ITS ---
Intake Vital Signs 08/19/23 15:17 Height 5 ft 4 in Weight 173 lb 8 oz BMI 29.8 BP 140/68 H Blood Pressure Location Rt brachial Position Sitting Pulse 63 Pulse Source Pulse Oximeter Temp 97.6 F Temp Source Oral Pulse Oximetry (%) 96 Oxygen Delivery Method Room Air Intake Visit Reasons: EP ?Sinus Infection (masked) Intake Note: Pt is here today for possible sinus infection, also pt states blood comes out Rt side of nose Patient Tobacco Use Status: Former Tobacco user Quit Date: 1989 Allergies gluten [GLUTEN] Allergy (Severe, Verified 08/19/23 15:17) ABD PAIN Sulfa (Sulfonamide Antibiotics) [SULFA(SULFONAMIDE ANTIBIOTICS)] Allergy (Severe, Verified 08/19/23 15:17) Rash mirtazapine Adverse Reaction (Severe, Verified 08/19/23 15:17) peripheral edema Do you need a note to return to daycare/school/sports/work: No HPI HPI Comments History of Present Illness Details 72 y/o female who presents to walk in [facility] with c/o sinus pressure. Pt had COVID infection 2 weeks, and she currently recovering. Denies fevers or chills now. Reports poor appetite. [facility] Medical History Pulmonary nodule Pulmonary nodule Hearing loss Annual physical exam Dysphagia Vocal cord dysfunction Asthma-COPD overlap syndrome Weight gain Edema Urinary incontinence Asthma History of concussion Shortness of breath Lower extremity edema Dyspnea Hypoxemia requiring supplemental oxygen Nonspecific interstitial pneumonitis Peripheral neuropathy Psychiatric disorder Mammogram normal Hyperlipemia Pulmonary hypertension DANIS on CPAP Pneumonitis Orthostatic hypotension dysautonomic syndrome Hypothyroid HTN (hypertension) Celiac disease Diastolic CHF Surgical History Hx of esophagogastroduodenoscopy History of total abdominal hysterectomy and bilateral salpingo-oophorectomy Endometrial adenocarcinoma History of colonoscopy Family History Father [place] cell cancer HTN (hypertension) CVD (cardiovascular disease) Mother Crohn disease Cancer Maternal Grandfather No problems noted. Maternal Grandmother No problems noted. Paternal Grandfather CVD (cardiovascular disease) Paternal Grandmother COPD (chronic obstructive pulmonary disease) Brother No problems noted. Sister No problems noted. Daughter No problems noted. Social History Household Members: Spouse Housing: House Are you a primary resident care technician to a significant other at home: No Do you presently have visiting nurse or other home services: No Alcohol intake: current Alcohol intake frequency: holidays/special occasions only Comment: pt resting Patient Tobacco Use Status: Former Tobacco user Quit Date: 1989 Tobacco use type: Cigarette Years Smoked: 2 e-Cigarette/Vaping Use: Never Used Second Hand Smoke Exposure: No service: No Current occupational status: retired Cognitive needs: No Hearing needs: Yes Vision needs: Yes Physical Exam Vital Signs: Last Vital Signs Temp 97.6 F 08/19/23 15:17 Pulse 63 08/19/23 15:17 BP 140/68 H 08/19/23 15:17 Pulse Ox 96 08/19/23 15:17 Oxygen Delivery Method Room Air 08/19/23 15:17 BMI result Body Mass Index 29.8 Const General: comfortable and no acute distress HEENT Head: Yes normocephalic Ears: external ears normal and TM's normal bilaterally General nose exam: Abnormal mucous membranes and turbinates present boggy and erythematous and Nasal discharge present mucoid Face and sinus: Yes sinuses nontender Mouth: Abnormal oral and palatal mucosa present erythematous Throat: Yes posterior oropharynx normal Resp Effort & Inspection: normal respiratory effort Auscultation: clear to auscultation bilaterally Cardio Rate: regular rate Rhythm: regular rhythm Assessment & Plan Assessment & Plan (1) Acute rhinosinusitis: Code(s): J01.90 - Acute sinusitis, unspecified Plan: - Post residual COVID symptoms - Viral Sinusitis - Home remedies - Rest and hydrate with warm fluids. Plan - Post residual COVID symptoms - Viral Sinusitis - Home remedies - Rest and hydrate with warm fluids. Orders: Orders SARS-CoV2/FLU/RSV Today J01.90 - Acute sinusitis, unspecified Coding Level of Care Code Est Pt Level 3 (66102) Diagnoses Acute rhinosinusitis J01.90 Time Spent (min) 15
[2023-08-19 15:17] VITALS: BP 140/68; PULSE 63; TEMP 36.4; O2SAT 96; BMI 29.8
== END 2023-08-19 16:03 | disposition home or self-care (01) ==
PROVIDERS: PCP Internal Medicine; Visit Provider Nurse Practitioner Family
DX: J01.90 Acute sinusitis, unspecified (principal); Z86.16 Personal history of COVID-19
CPT/HCPCS: 99213

== ENCOUNTER 2023-10-17 14:28 | Outpatient (REF) | payer MEDICARE, SELFPAY ==
--- NOTE | ~2023-10-17 | MM_ITS ---
EXAMINATION: MM SCREENING DIGITAL BREAST TOMOSYNTHESIS, BILATERAL CLINICAL INFORMATION: Screening. Asymptomatic. COMPARISON: Mammography: This study is compared with prior exams dating back to 2019. TECHNIQUE: Digital breast tomosynthesis is performed in both the craniocaudal and mediolateral oblique views along with computer-aided detection (CAD). Synthesized 2D images are generated from the tomosynthesis. FINDINGS: There are scattered areas of fibroglandular density (ACR BI-RADS breast composition Category b). There are no significant masses, abnormal calcifications, or other abnormalities. There is a tissue marker present in the inferior aspect of the left breast from prior benign percutaneous biopsy. Few, bilateral benign calcifications are present in each breast. MM/MM tomosynthesis screening BI IMPRESSION: No mammographic evidence of malignancy. ASSESSMENT: BI-RADS BI-RADS 2 - Benign Findings RECOMMENDATION: Routine annual mammography screening. 1 year F/U This examination should not preclude the clinical evaluation of a suspicious palpable abnormality. This patient's information was entered into a reminder system with a target due date for their next mammogram.
== END 2023-10-17 14:29 | disposition home or self-care (01) ==
LOC: HO.MAMMO 14:28
PROVIDERS: PCP Internal Medicine; Visit Provider Internal Medicine
DX: Z12.31 Encounter for screening mammogram for malignant neoplasm of breast (principal)
CPT/HCPCS: 77063; 77067

== ENCOUNTER → 2023-10-17 14:30 | Outpatient (BNV) | payer MEDICARE, SELFPAY | PROVIDERS: PCP Internal Medicine; Visit Provider Radiology Diagnostic Radiology | DX: Z12.31 Encounter for screening mammogram for malignant neoplasm of breast (principal) | CPT/HCPCS: 77063; 77067 ==

== ENCOUNTER 2024-04-14 10:38 | Outpatient (AMB) | payer MEDICARE, SELFPAY ==
--- NOTE | 2024-04-14 11:32 | AM.OFFWIN_ITS ---
Intake Vital Signs 04/14/24 11:34 Height 5 ft 4 in Weight 176 lb BMI 30.2 BP 118/62 Blood Pressure Location Lt brachial Position Sitting Pulse 63 Pulse Source Pulse Oximeter Pulse Oximetry (%) 97 Oxygen Delivery Method Room Air Intake Visit Reasons: EP Sinus infection? Intake Note: Patient here for possible sinus infection that has been present for about 6 weeks, states her congestion worsens at night. Patient Tobacco Use Status: Former Tobacco user Allergies gluten [GLUTEN] Allergy (Severe, Verified 04/14/24 11:34) ABD PAIN Sulfa (Sulfonamide Antibiotics) [SULFA(SULFONAMIDE ANTIBIOTICS)] Allergy (Severe, Verified 04/14/24 11:34) Rash mirtazapine Adverse Reaction (Severe, Verified 04/14/24 11:34) peripheral edema Do you need a note to return to daycare/school/sports/work: No HPI HPI Comments History of Present Illness Details 73 y/o female patient who presents to [facility] walk in clinic with c/o sinus pressure and congestion for 6 weeks. She does admit to having h/o seasonal allergies. Reports failing all OTC medications. She is currently seeing an Size Stamper and receives Allergy injections. [facility] Medical History Pulmonary nodule Pulmonary nodule Hearing loss Annual physical exam Dysphagia Vocal cord dysfunction Asthma-COPD overlap syndrome Weight gain Edema Urinary incontinence Asthma History of concussion Shortness of breath Lower extremity edema Dyspnea Hypoxemia requiring supplemental oxygen Nonspecific interstitial pneumonitis Peripheral neuropathy Psychiatric disorder Mammogram normal Hyperlipemia Pulmonary hypertension DANIS on CPAP Pneumonitis Orthostatic hypotension dysautonomic syndrome Hypothyroid HTN (hypertension) Celiac disease Diastolic CHF Surgical History Hx of esophagogastroduodenoscopy History of total abdominal hysterectomy and bilateral salpingo-oophorectomy Endometrial adenocarcinoma History of colonoscopy Family History Father Savita cell cancer HTN (hypertension) CVD (cardiovascular disease) Mother Crohn disease Cancer Maternal Grandfather No problems noted. Maternal Grandmother No problems noted. Paternal Grandfather CVD (cardiovascular disease) Paternal Grandmother COPD (chronic obstructive pulmonary disease) Brother No problems noted. Sister No problems noted. Daughter No problems noted. Social History Household Members: Spouse Housing: House Are you a primary pediatric care coordinator to a significant other at home: No Do you presently have visiting nurse or other home services: No Alcohol intake: current Alcohol intake frequency: holidays/special occasions only Comment: pt resting Patient Tobacco Use Status: Former Tobacco user Tobacco use type: Cigarette Years Smoked: 2 e-Cigarette/Vaping Use: Never Used Second Hand Smoke Exposure: No service: No Current occupational status: retired Cognitive needs: No Hearing needs: Yes Vision needs: Yes Physical Exam Vital Signs: Last Vital Signs Pulse 63 04/14/24 11:34 BP 118/62 04/14/24 11:34 Pulse Ox 97 04/14/24 11:34 Oxygen Delivery Method Room Air 04/14/24 11:34 BMI result Body Mass Index 30.2 Const General: cooperative, comfortable and no acute distress Nutritional Appearance: obese Orientation/consciousness: patient oriented x3 HEENT Head: Yes normocephalic Ears: external ears normal and TM abnormal bulging, erythematous and with fluid behind the TM General nose exam: Abnormal mucous membranes and turbinates present boggy and erythematous Face and sinus: Yes sinuses nontender Mouth: moist mucous membranes Throat: Yes postnasal drainage Resp Effort & Inspection: normal respiratory effort and able to speak in complete sentences Auscultation: clear to auscultation bilaterally, no crackles, no rales, no rhonchi and no wheezes Cardio Heart sounds: S1 normal heart sound present and S2 normal heart sound present Neuro General: patient oriented x3, gait normal and moves all extremities Psych Speech and movement: Normal speech and movement present Assessment & Plan Assessment & Plan (1) Allergic rhinitis: Code(s): J30.9 - Allergic rhinitis, unspecified Qualifiers: Allergic rhinitis seasonality: seasonal Allergic rhinitis trigger: unspecified Qualified Code(s): J30.2 - Other seasonal allergic rhinitis Plan: Ordered Zyrtec and Rhinocourt F/U with Size Stamper F/U with PCP. Medications: New cetirizine (Zyrtec) 10 mg PO DAILY PRN 90 tabs 0RF allergy symptoms J30.2 - Other seasonal allergic rhinitis budesonide 32 mcg/actuation administer into each nostril 1 spray intranasal BID 8.43 mL 0RF J30.2 - Other seasonal allergic rhinitis Coding Level of Care Code Est Pt Level 3 (63599) Diagnoses Seasonal allergic rhinitis, unspecified trigger J30.2 Allergic rhinitis seasonality: seasonal Allergic rhinitis trigger: unspecified Time Spent (min) 15
[2024-04-14 11:34] VITALS: BP 118/62; PULSE 63; O2SAT 97; BMI 30.2
== END 2024-04-14 12:07 | disposition home or self-care (01) ==
PROVIDERS: PCP Internal Medicine; Visit Provider Nurse Practitioner Family
DX: J30.2 Other seasonal allergic rhinitis (principal)
CPT/HCPCS: 99213

== ENCOUNTER 2024-04-30 14:44 | Outpatient (AMB) | payer MEDICARE, SELFPAY ==
[2024-04-30 14:47] VITALS: BP 122/64; PULSE 59; BMI 31.4
--- NOTE | 2024-04-30 14:47 | A.OFFVIS_ITS ---
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 She has been doing extremely well from cardiac perspective. She denies any symptoms of found significant worsening heart failure syndrome. Last echocardiogram actually showed improved diastolic function with impaired relaxation filling pattern. Her blood pressures been extremely well controlled. She has been managing her stress well. She denies any orthopnea, PND, leg edema. She does not exercise on a regular basis. No exertional chest pain. No prolonged palpitation irregular heartbeat. [facility] Medical History Pulmonary nodule Pulmonary nodule Hearing loss Annual physical exam Dysphagia Vocal cord dysfunction Asthma-COPD overlap syndrome Weight gain Edema Urinary incontinence Asthma History of concussion Shortness of breath Lower extremity edema Dyspnea Hypoxemia requiring supplemental oxygen Nonspecific interstitial pneumonitis Peripheral neuropathy Psychiatric disorder Mammogram normal Hyperlipemia Pulmonary hypertension DANIS on CPAP Pneumonitis Orthostatic hypotension dysautonomic syndrome Hypothyroid HTN (hypertension) Celiac disease Diastolic CHF Surgical History Hx of esophagogastroduodenoscopy History of total abdominal hysterectomy and bilateral salpingo-oophorectomy Endometrial adenocarcinoma History of colonoscopy Family History Father Lockhart cell cancer HTN (hypertension) CVD (cardiovascular disease) Mother Crohn disease Cancer Maternal Grandfather No problems noted. Maternal Grandmother No problems noted. Paternal Grandfather CVD (cardiovascular disease) Paternal Grandmother COPD (chronic obstructive pulmonary disease) Brother No problems noted. Sister No problems noted. Daughter No problems noted. Social History Household Members: Spouse Housing: House Are you a primary sub acute care nurse to a significant other at home: No Do you presently have visiting nurse or other home services: No Alcohol intake: current Alcohol intake frequency: holidays/special occasions only Comment: pt resting Patient Tobacco Use Status: Former Tobacco user Tobacco use type: Cigarette Years Smoked: 2 e-Cigarette/Vaping Use: Never Used Second Hand Smoke Exposure: No service: No Current occupational status: retired Cognitive needs: No Hearing needs: Yes Vision needs: Yes Review of Systems Const Denies chills, Denies fatigue, Denies fever(s), Denies frequent falls, Denies weakness, Denies weight gain and Denies weight loss ENT Denies dizziness Card Denies chest pain, Denies leg edema, Denies lightheadedness, Denies palpitations, Denies dyspnea, Denies dyspnea on exertion, Denies orthopnea and Denies other (loss of consciousness) Resp Denies cough, Denies dyspnea and Denies dyspnea on exertion GI Denies hematochezia and Denies change in stool character Musc Denies abnormal gait, Denies muscle weakness, Denies numbness, Denies radiating pain into limb and Denies tingling Neuro Denies abnormal gait, Denies dizziness, Denies frequent falls, Denies numbness, Denies tingling and Denies weakness Endo Denies fatigue and Denies palpitations Physical Exam Vital Signs: Last Vital Signs Pulse 59 04/30/24 14:47 BP 122/64 04/30/24 14:47 BMI result Body Mass Index 31.4 Const General: cooperative, healthy appearing, comfortable and no acute distress Orientation/consciousness: patient oriented x3 Neck Neck: Yes normal visual inspection Resp Effort & Inspection: normal respiratory effort Auscultation: clear to auscultation bilaterally, no crackles, no rales, no rhonchi and no wheezes Cardio Jugular venous distension: no JVD Rate: regular rate Rhythm: regular rhythm Heart sounds: S1 normal heart sound present, S2 normal heart sound present, no murmurs and no rubs Neuro General: patient oriented x3 Extrem General: Yes normal to inspection Psych Appearance: grossly normal Mental Status: mental status grossly normal Speech and movement: Normal speech and movement present Assessment & Plan Assessment & Plan (1) Diastolic CHF: Comment: Echo 2020 EF Code(s): I50.30 - Unspecified diastolic (congestive) heart failure Category: Medical Qualifiers: Heart failure chronicity: acute on chronic Qualified Code(s): I50.33 - Acute on chronic diastolic (congestive) heart failure Plan: Patient was prior history of diastolic heart failure. Clinically euvolemic and well compensated current diuretic dose. Importance of this was discussed. Daily weight monitoring avoidance of salt loading was discussed. Additional diuretics as need be. Continue aggressive control blood pressure which is well optimized. Diastolic function has surprisingly improved. Continue to participate in regular physical activity and weight loss program. Follow-up echocardiogram in 1 year's time. (2) Orthostatic hypotension dysautonomic syndrome: Code(s): G90.3 - Multi-system degeneration of the autonomic nervous system Category: Medical Plan: Significantly labile blood pressure with significant lead affected by significant stress. This is done well with current regimen and with stress mitigation strategies. Importance of stress mitigation strategies were di scussed. Advised to continue monitor blood pressure at home maintain a log. P.r.n. hydralazine as needed. Low-salt diet was discussed. Advised to maintain adequate hydration. Orthostatic precautions were discussed. Will follow up in the clinic 1 year's time, sooner p.r.n.. Thank you for allowing me to partake in her care Orders: Orders CA echo transthoracic complete 1 Year I50.33 - Acute on chronic diastolic (congestive) heart failure Coding Level of Care Code Est Pt Level 4 (49947) Diagnoses Diastolic CHF I50.33 Heart failure chronicity: acute on chronic Orthostatic hypotension dysautonomic syndrome G90.3
== END 2024-04-30 15:05 | disposition home or self-care (01) ==
PROVIDERS: PCP Internal Medicine; Visit Provider Internal Medicine Cardiovascular Disease
DX: I50.33 Acute on chronic diastolic (congestive) heart failure (principal); G90.3 Multi-system degeneration of the autonomic nervous system
CPT/HCPCS: 99214

== ENCOUNTER → 2024-04-30 14:44 | Outpatient (BNVA) | payer MEDICARE, SELFPAY | PROVIDERS: PCP Internal Medicine; Visit Provider Internal Medicine Cardiovascular Disease | DX: I50.33 Acute on chronic diastolic (congestive) heart failure (principal); G90.3 Multi-system degeneration of the autonomic nervous system | CPT/HCPCS: 99212 ==

== ENCOUNTER 2024-05-11 13:50 | Outpatient (AMB) | payer MEDICARE, SELFPAY ==
[2024-05-11 13:52] VITALS: BP 120/66; PULSE 63; O2SAT 95; BMI 31.8
--- NOTE | 2024-05-11 13:52 | A.OFFPC_ITS ---
Vital Signs 05/11/24 13:52 Height 5 ft 4 in Weight 185 lb BMI 31.8 BP 120/66 Blood Pressure Location Lt brachial Position Sitting Pulse 63 Pulse Source Pulse Oximeter Pulse Oximetry (%) 95 Oxygen Delivery Method Room Air Intake Visit Reasons: Weight gain - wegovy Intake Note: Pt is here today for a follow up visit to discuss weight loss. Pt states that she was recently diagnosed with rosea. Allergies gluten [GLUTEN] Allergy (Severe, Verified 05/11/24 13:54) ABD PAIN Sulfa (Sulfonamide Antibiotics) [SULFA(SULFONAMIDE ANTIBIOTICS)] Allergy (Severe, Verified 05/11/24 13:54) Rash mirtazapine Adverse Reaction (Severe, Verified 05/11/24 13:54) peripheral edema Medication List - Last Reconciled 05/11/24 by Celestina Zimmerman MD amlodipine 10 mg PO QAM 90 days amoxicillin-pot clavulanate 875-125 mg 1 tab PO BID budesonide 32 mcg/actuation 1 spray intranasal BID compress.stocking,knee,reg,med apply in the am and remove in the pm furosemide 40 mg PO DAILY gabapentin 300 mg PO DAILY gabapentin 100 mg PO TID hydralazine 75 mg PO BEDTIME hydralazine 25 mg PO DIRECTED labetalol 100 mg PO BID levothyroxine 88 mcg PO DAILY lorazepam 0.5 mg PO QID PRN montelukast (Singulair) 10 mg PO DAILY PRN 90 days nebulizers As directed omeprazole 40 mg PO BID oxybutynin chloride 5 mg PO BEDTIME prochlorperazine maleate (Compazine) 10 mg PO BID PRN ropinirole 0.5 mg PO BEDTIME sertraline 100 mg PO DAILY sodium fluoride-pot nitrate 1.1-5 % PO BEDTIME spironolactone 50 mg (2 x 25 mg) PO DAILY trazodone 100 mg PO BEDTIME PRN ursodiol 500 mg PO BID Tobacco use date assessed: 05/11/24 Fall risk assessment: No Falls in past year Last assessed Fall Risk: 05/11/24 Dental Screening Dental Screen Date: 05/11/24 Did you have a dental visit in the last 12 months?: Yes Did you have a dental problem in the last 6 months where you did not have access to dental care?: No Was dental information given to patient?: Patient has dentist HPI Weight gain - wegovy HPI Details Pt c/o green nasal discharge, facial discomfort, postnasal drip for 1 month. Pt has been getting allergy shot x 2 years and denies seasonal allergy. Hypertension has been controlled on current medications. Patient has been trying to lose weight eating less calories increasing physical activity for over 6 months unsuccessfully. Patient is interested in trying GLP 1 agonist [facility] Medical History Pulmonary nodule Pulmonary nodule Hearing loss Annual physical exam Dysphagia Vocal cord dysfunction Asthma-COPD overlap syndrome Weight gain Edema Urinary incontinence Asthma History of concussion Shortness of breath Lower extremity edema Dyspnea Hypoxemia requiring supplemental oxygen Nonspecific interstitial pneumonitis Peripheral neuropathy Psychiatric disorder Mammogram normal Hyperlipemia Pulmonary hypertension DANIS on CPAP Pneumonitis Orthostatic hypotension dysautonomic syndrome Hypothyroid HTN (hypertension) Celiac disease Diastolic CHF Surgical History Hx of esophagogastroduodenoscopy History of total abdominal hysterectomy and bilateral salpingo-oophorectomy Endometrial adenocarcinoma History of colonoscopy Family History Father Savita cell cancer HTN (hypertension) CVD (cardiovascular disease) Mother Crohn disease Cancer Maternal Grandfather No problems noted. Maternal Grandmother No problems noted. Paternal Grandfather CVD (cardiovascular disease) Paternal Grandmother COPD (chronic obstructive pulmonary disease) Brother No problems noted. Sister No problems noted. Daughter No problems noted. Social History Household Members: Spouse Housing: House Are you a primary rn urgent care to a significant other at home: No Do you presently have visiting nurse or other home services: No Alcohol intake: current Alcohol intake frequency: holidays/special occasions only Comment: pt resting Patient Tobacco Use Status: Former Tobacco user Tobacco use type: Cigarette Years Smoked: 2 e-Cigarette/Vaping Use: Never Used Second Hand Smoke Exposure: No service: No Current occupational status: retired Cognitive needs: No Hearing needs: Yes Vision needs: Yes Questionnaire PHQ-9 Over the last 2 weeks, how often have you been bothered by any of the following problems? 1. Little interest or pleasure in doing things: not at all 2. Feeling down, depressed, or hopeless: not at all 3. Trouble falling or staying asleep, or sleeping too much: not at all 4. Feeling tired or having little energy: not at all 5. Poor appetite or overeating: not at all 6. Feeling bad about yourself - or that you are a failure or have let yourself or your family down: not at all 7. Trouble concentrating on things, such as reading the newspaper or watching television: not at all 8. Moving or speaking so slowly that other people could have noticed. Or the opposite - being so fidgety or restless that you have been moving around a lot more than usual: not at all 9. Thoughts that you would be better off or of hurting yourself in some way: not at all Total score: 0 Depression Screening Interpretation: Negative Depression Screening Done: Yes 42786 - PHQ-9 Billing: Yes Source: Developed by Drs. Judson Bravo, Breonna Fernandez, Jared Johnson and colleagues, with an educational shola from [employer]. Thrive Questionnaire Date Thrive assessed: 08/09/22 I am a: Patient What is your living situation today?: I have a steady place to live Within the past 12 months, did the food you bought not last and you didn't have the money to get more?: Never true Within the past 12 months, did you worry whether your food would run out before you got money to buy more?: Never true Do you have trouble paying for medicines?: No Do you have trouble getting transportation to medical appointments?: No Do you have trouble paying your heating and electricity bill?: No Do you have trouble taking care of your child, family member or friend?: No Do you have trouble with day-to-day activities such as bathing, preparing meals, shopping, managing finances, etc.?: No Are you interested in more education?: No Please select the resources that you would like help with: None Currently or been in a relationship where the following occur: No concerns reported THRIVE Score: 0 AUDIT C Alcohol Use Questionnaire (AUDIT-C) 1. How often do you have a drink containing alcohol?: Never 3. How often do you have six or more drinks on one occasion?: Never Total Score: 0 MONA-7 AMB Questionnaire MONA-7 Date MONA - 7 assessed: 05/11/24 Feeling nervous, anxious, or on edge: 1 = Several days Not being able to stop or control worryin = Several days Worrying too much about different things: 1 = Several days Trouble relaxin = Several days Being so restless that it is hard to sit still: 0 = Not at all Becoming easily annoyed or irritable: 0 = Not at all Feeling afraid as if something awful might happen: 1 = Several days Total MONA-7 score (0-4 normal; 5-9 mild; 10-14 moderate; 15-21 severe): 5 Source: Developed by Drs. Judson Bravo, Breonna Fernandez, Jared Johnson and colleagues, with an educational shola from [employer]. MONA-7 Assessment Billing MONA-7 Assessment Tool: MONA-7 Assessment 91093 Review of Systems Const All systems reviewed & are unremarkable except as noted in HPI and below Eyes Reports no additional complaints ENT Reports no additional complaints Card Reports no additional complaints Resp Reports no additional complaints GI Reports no additional complaints Reports no additional complaints Physical exam (Primary Care) Vital Signs: Last Vital Signs Pulse 63 05/11/24 13:52 BP 120/66 05/11/24 13:52 Pulse Ox 95 05/11/24 13:52 Oxygen Delivery Method Room Air 05/11/24 13:52 BMI result Body Mass Index 31.8 Tobacco/Smoking Status: Tobacco use Status Tobacco use date assessed 05/11/24 05/11/24 14:00 Patient Tobacco Use Status Former Tobacco user 05/11/24 14:00 Tobacco use type Cigarette 05/11/24 14:00 e-Cigarette/Vaping Use Never Used 05/11/24 14:00 PHQ-9: PHQ-9 Score PHQ-9: Total score 0 05/11/24 14:00 Depression Screening Interpretation: Negative Thrive Assessment: Date of Thrive Assessment Date Thrive assessed 08/09/22 05/11/24 14:00 Currently or been in a relationship where the following occur: No concerns reported Const General: no acute distress HENMT Head: Yes normal to inspection Ears: TM's normal bilaterally Face and sinus: Yes normal facial exam and Yes sinus tenderness Throat: Yes postnasal drainage Neck Neck: Yes no lymphadenopathy and Yes supple Resp Effort & Inspection: normal respiratory effort Auscultation: clear to auscultation bilaterally Cardio Rhythm: regular rhythm Heart sounds: S1 normal heart sound present and S2 normal heart sound present GI Inspection: Yes normal to inspection Coding Level of Care Code Est Pt Level 4 (02247) Diagnoses Diastolic CHF I50.33 Heart failure chronicity: acute on chronic Hypothyroid E03.9 Weight gain R63.5 Asthma-COPD overlap syndrome J44.9 Anxiety and depression F41.9; F32.A Sinusitis J32.9 Additional Codes MONA-7 Assessment Billing - MONA-7 Assessment Tool: MONA-7 Assessment 47625 ([id number]) Assessment & Plan Assessment & Plan (1) Diastolic CHF: Comment: Echo 2020 nl EF Code(s): I50.30 - Unspecified diastolic (congestive) heart failure Category: Medical Qualifiers: Heart failure chronicity: acute on chronic Qualified Code(s): I50.33 - Acute on chronic diastolic (congestive) heart failure Plan: Continue current medications follow-up with the Cardiology (2) Hypothyroid: Code(s): E03.9 - Hypothyroidism, unspecified Category: Medical Plan: Continue levothyroxine return for fasting blood work (3) Weight gain: Code(s): R63.5 - Abnormal weight gain Category: Medical Plan: Patient is overweight with a BMI 31.8, continue decreasing caloric intake increasing physical activity and start Wegovy 0.25 weekly for the 1st month. Side effects discussed with the patient the weight will be monitor periodically and dose will increase depending on the effect of weight loss and side effects (4) Asthma-COPD overlap syndrome: Comment: Inhaled steroids caused thrush Code(s): J44.9 - Chronic obstructive pulmonary disease, unspecified Category: Medical Plan: Follow-up with pulmonology (5) Anxiety and depression: Comment: /U WITH PSYCHIATRY Code(s): F41.9 - Anxiety disorder, unspecified; F32.A - Depression, unspecified Category: Medical Plan: Follow-up psychiatry (6) Sinusitis: Code(s): J32.9 - Chronic sinusitis, unspecified Category: Medical Plan: Augmentin as prescribed for 10 days patient was advised to use Flonase nasal spray alternating with saline nasal spray continue antihistamine Orders: Orders Comprehensive [place]. Panel Fast Today E03.9 - Hypothyroidism, unspecified, F32.A - Depression, unspecified, F41.9 - Anxiety disorder, unspecified, I50.33 - Acute on chronic diastolic (congestive) heart failure, J44.9 - Chronic obstructive pulmonary disease, unspecified, R63.5 - Abnormal weight gain Complete Blood Count Auto Diff Today E03.9 - Hypothyroidism, unspecified, F32.A - Depression, unspecified, F41.9 - Anxiety disorder, unspecified, I50.33 - Acute on chronic diastolic (congestive) heart failure, J44.9 - Chronic obstructive pulmonary disease, unspecified, R63.5 - Abnormal weight gain TSH reflex Free T4 Today E03.9 - Hypothyroidism, unspecified, F32.A - Depression, unspecified, F41.9 - Anxiety disorder, unspecified, I50.33 - Acute on chronic diastolic (congestive) heart failure, J44.9 - Chronic obstructive pulmonary disease, unspecified, R63.5 - Abnormal weight gain UA w Microscopic Today E03.9 - Hypothyroidism, unspecified, F32.A - Depression, unspecified, F41.9 - Anxiety disorder, unspecified, I50.33 - Acute on chronic diastolic (congestive) heart failure, J44.9 - Chronic obstructive pulmonary disease, unspecified, R63.5 - Abnormal weight gain Lipid Panel Today E03.9 - Hypothyroidism, unspecified, F32.A - Depression, unspecified, F41.9 - Anxiety disorder, unspecified, I50.33 - Acute on chronic diastolic (congestive) heart failure, J44.9 - Chronic obstructive pulmonary disease, unspecified, R63.5 - Abnormal weight gain Hemoglobin A1c Today E03.9 - Hypothyroidism, unspecified, F32.A - Depression, u nspecified, F41.9 - Anxiety disorder, unspecified, I50.33 - Acute on chronic diastolic (congestive) heart failure, J44.9 - Chronic obstructive pulmonary disease, unspecified, R63.5 - Abnormal weight gain Medications: New amoxicillin-pot clavulanate 875-125 mg 1 tab PO BID 20 tabs 0RF semaglutide (weight loss) (Wegovy) 0.25 mg (0.5 mL) subcut QWEEK 2 mL 2RF Discontinued cetirizine (Zyrtec) Discontinued Reason: Doctor's Order 10 mg PO DAILY PRN 90 tabs 0RF allergy symptoms J30.2 - Other seasonal allergic rhinitis
== END 2024-05-11 14:30 | disposition home or self-care (01) ==
PROVIDERS: PCP Internal Medicine; Visit Provider Internal Medicine
DX: I50.33 Acute on chronic diastolic (congestive) heart failure (principal); E03.9 Hypothyroidism, unspecified; R63.5 Abnormal weight gain; J44.9 Chronic obstructive pulmonary disease, unspecified; F41.9 Anxiety disorder, unspecified; F32.A Depression, unspecified; J32.9 Chronic sinusitis, unspecified

== ENCOUNTER → 2024-05-11 13:50 | Outpatient (BNVA) | payer MEDICARE, SELFPAY | PROVIDERS: PCP Internal Medicine; Visit Provider Internal Medicine | DX: R63.5 Abnormal weight gain (principal); I50.33 Acute on chronic diastolic (congestive) heart failure; E03.9 Hypothyroidism, unspecified; J44.9 Chronic obstructive pulmonary disease, unspecified; F41.9 Anxiety disorder, unspecified; F32.A Depression, unspecified; J32.9 Chronic sinusitis, unspecified; Z79.85 Long-term (current) use of injectable non-insulin antidiabetic drugs | CPT/HCPCS: 96127; 99212 ==

== ENCOUNTER 2024-05-18 10:22 | Outpatient (REF) | payer MEDICARE, SELFPAY ==
[2024-05-18 10:44] LABS: MANUAL DIFF FLAG NO
[2024-05-18 11:26] LABS: Basophils Absolute Auto 0.1 X10*3/uL (0.0-0.2); Basophils Percent Auto 1.3 % (0-2); Eosinophils Absolute Auto 0.2 X10*3/uL (0.0-0.4); Eosinophils Percent Auto 3.4 % (0-4); Hematocrit 42.6 % (37.0-47.0); Imm Gran Abs Auto 0.03 X10*3/uL (0.00-0.03); Imm Gran Pct Auto 0.5 % (0.0-0.4); Lymphocytes Percent Auto 18.4 % (20-40); Mean Corpuscular HGB Conc 32.9 g/dl (31.0-35.0); Mean Corpuscular Hemoglobin 29.6 pg (27.0-33.0); Mean Corpuscular Volume 90.1 fL (80.0-98.0); Mean Platelet Volume 10.8 fL (9.4-12.3); Monocytes Absolute Auto 0.5 X10*3/uL (0.1-1.2); Monocytes Percent Auto 9.4 % (2-11); Neutrophils Absolute Auto 3.7 x10*3/uL (2.0-8.3); Platelet Count 283 X10*3/uL (160-400); Red Blood Count 4.73 X10*6/uL (4.20-5.50); Red Cell Distribution Width 13.9 % (11.0-16.0); White Blood Count 5.5 X10*3/uL (4.8-10.8)
[2024-05-18 11:30] LABS: Appearance Urine Clear; Color Urine Yellow; Glucose Urine UA Negative (Negative); Leukocyte Esterase Urine Trace (Negative); Nitrite Urine Negative (Negative); Specific Gravity - Urine <= 1.005 (1.005-1.025); UMIC TRIGGER UA YES; Urine Blood Negative (Negative); Urine Ketones Negative (Negative); Urine Protein Negative (Neg-Trace)
[2024-05-18 11:36] LABS: Bacteria Urine None Seen (None Seen); Hyaline Casts Urine 0-2 /LPF (0-2); RBC Urine 0-2 /HPF (0-2); Squamous Epithelial Cell Urine 0-2 /HPF (0-2); WBC Urine 0-5 /HPF (0-5)
[2024-05-18 12:00] LABS: B Type Natriuretic Peptide 82 pg/mL (<100)
[2024-05-18 12:26] LABS: Alanine Aminotransferase 27 U/L (0-31); Albumin Level 4.3 g/dL (3.5-5.0); Alkaline Phosphatase 103 U/L (39-117); Anion Gap 13 (12-20); Aspartate Amino Transferase 31 U/L (5-31); Bilirubin Total 0.5 mg/dL (0.0-1.0); Blood Urea Nitrogen 18 mg/dL (9-16); Calcium 9.7 mg/dL (8.4-10.2); Carbon Dioxide 27 mmol/L (22-29); Chloride 104 mmol/L (96-108); Cholesterol 249 mg/dL (<200); Estimated Glomerular Filt Rate 47; Glucose Fasting 111 mg/dL (60-99); HDL Cholesterol 61 mg/dL (>40); LDL Cholesterol Calculated 160 mg/dL (<100); Potassium 3.5 mmol/L (3.3-5.1); Sodium 140 mmol/L (135-145); Total Protein 7.4 g/dL (6.5-8.0); Triglycerides 143 mg/dL (<150)
[2024-05-18 12:27] LABS: TSH reflex Free T4 4.73 uIU/mL (0.32-4.0)
[2024-05-18 12:34] LABS: Estimated Average Glucose 105 mg/dL; Hemoglobin A1C 163.6817 umol/L; Hemoglobin A1c % 5.3 % (<6.0); Total Hemoglobin (HGBA1C) 4685.3948 umol/L
[2024-05-18 14:54] LABS: Free T4 (Free Thyroxine) 0.99 ng/dL (0.71-1.85)
== END 2024-05-18 10:23 | disposition home or self-care (01) ==
LOC: HO.LAB 10:22
PROVIDERS: PCP Internal Medicine; Visit Provider Internal Medicine
DX: F41.9 Anxiety disorder, unspecified (principal); J44.9 Chronic obstructive pulmonary disease, unspecified; I51.89 Other ill-defined heart diseases; G90.3 Multi-system degeneration of the autonomic nervous system; F32.A Depression, unspecified; R63.5 Abnormal weight gain; E03.9 Hypothyroidism, unspecified; I50.33 Acute on chronic diastolic (congestive) heart failure; Z13.1 Encounter for screening for diabetes mellitus
CPT/HCPCS: 36415; 80053; 80061; 81001; 82306; 83036; 83880; 84439; 84443; 85025

== ENCOUNTER 2024-06-08 09:31 | Outpatient (AMB) | payer MEDICARE, SELFPAY ==
--- NOTE | 2024-06-08 09:33 | MHC.OFFVIS ---
Vital Signs 06/08/24 09:39 Height 5 ft 4 in Weight 180 lb 12.465 oz BMI 31.0 BP 130/58 L Blood Pressure Location Lt brachial Position Sitting Pulse 62 Intake Visit Reasons: R/S routine f/u Intake Note: Sana presents in the office as a follow up. CC: No concerns at this time just a follow up. Er Registrar Required: No Allergies gluten [GLUTEN] Allergy (Severe, Verified 06/08/24 09:40) ABD PAIN Sulfa (Sulfonamide Antibiotics) [SULFA(SULFONAMIDE ANTIBIOTICS)] Allergy (Severe, Verified 06/08/24 09:40) Rash mirtazapine Adverse Reaction (Severe, Verified 06/08/24 09:40) peripheral edema HPI HPI R/S routine f/u: Details: 73 yr old f called for f/u ISSUES: 1/ Dysphagia and celiac disease: swallowing is better, not a big issue as before not choking or coughing with food occ food holds up still taking prilosec she went back to [facility] 1 month ago and had bad experience, was there for her celiac check up TESTS: she had EGD at [facility] with nml biopsies, EMS with high IRP, otherwise nml per paperwork, EGD 04/2021-- nml duodenal bx, nml esophgeal bx, hyperplastic/fundic polyp removed Ba swallow 01/2021-- severe esophageal dysmotility, prolonged stasis, no gerd, swallowing mechanism GES--nml 2/Abn LFT:Was placed on urosdiol and still taking, LFT haven been nml TESTS: US 08/2022-- cholelithiasis noted rept LFT 10/22/22- normal and also on 06/2023 neg celiac, neg LKM, neg LINDA LFT: 05/2024- normal 3/ Abdominal pain- random and intermittent -occasionall, suprapubic area, improves with rest and lasts < 5 min A/P: 1/ Dysphagia--improved, ?maybe due to PPI 2/ abn LFT< neg LINDA, AMA, neg celiac, recent LFT nml--on ursodiol 3/ celiac seems controlled, 4/ non specific abdominal pain Plan; 1/ Taking MV< advised on taking Ca-vit D supplement, at least 800 units daily 2/ Recheck LFt periodically 3/ stay on gluten free diet 4/ cont with PPI BID as swallowing improved 5/ PCP is ordering DEXA 6/ discussed an US for her vague abdo pain she declined and will cont to monitor [facility] Medical History Pulmonary nodule Pulmonary nodule Hearing loss Annual physical exam Dysphagia Vocal cord dysfunction Asthma-COPD overlap syndrome Weight gain Edema Urinary incontinence Asthma History of concussion Shortness of breath Lower extremity edema Dyspnea Hypoxemia requiring supplemental oxygen Nonspecific interstitial pneumonitis Peripheral neuropathy Psychiatric disorder Mammogram normal Hyperlipemia Pulmonary hypertension DANIS on CPAP Pneumonitis Orthostatic hypotension dysautonomic syndrome Hypothyroid HTN (hypertension) Celiac disease Diastolic CHF Surgical History Hx of esophagogastroduodenoscopy History of total abdominal hysterectomy and bilateral salpingo-oophorectomy Endometrial adenocarcinoma History of colonoscopy Family History Father Savita cell cancer HTN (hypertension) CVD (cardiovascular disease) Mother Crohn disease Cancer Maternal Grandfather No problems noted. Maternal Grandmother No problems noted. Paternal Grandfather CVD (cardiovascular disease) Paternal Grandmother COPD (chronic obstructive pulmonary disease) Brother No problems noted. Sister No problems noted. Daughter No problems noted. Social History Household Members: Spouse Housing: House Are you a primary life care planner to a significant other at home: No Do you presently have visiting nurse or other home services: No Alcohol intake: current Alcohol intake frequency: holidays/special occasions only Comment: pt resting Patient Tobacco Use Status: Former Tobacco user Tobacco use type: Cigarette Years Smoked: 2 e-Cigarette/Vaping Use: Never Used Second Hand Smoke Exposure: No service: No Current occupational status: retired Cognitive needs: No Hearing needs: Yes Vision needs: Yes Physical Exam Vital Signs: Last Vital Signs Pulse 62 06/08/24 09:39 BP 130/58 L 06/08/24 09:39 BMI result Body Mass Index 31.0 Assessment & Plan Assessment & Plan (1) Elevated LFTs: Code(s): R79.89 - Other specified abnormal findings of blood chemistry Category: Medical Plan: see above Coding Level of Care Code Est Pt Level 4 (76294) Diagnoses Elevated LFTs R79.89
[2024-06-08 09:39] VITALS: BP 130/58; PULSE 62; BMI 31.0
== END 2024-06-08 10:01 | disposition home or self-care (01) ==
PROVIDERS: PCP Internal Medicine; Visit Provider Internal Medicine Gastroenterology
DX: R79.89 Other specified abnormal findings of blood chemistry (principal)
CPT/HCPCS: 99214

== ENCOUNTER → 2024-06-08 09:31 | Outpatient (BNVA) | payer MEDICARE, SELFPAY | PROVIDERS: PCP Internal Medicine; Visit Provider Internal Medicine Gastroenterology | DX: R79.89 Other specified abnormal findings of blood chemistry (principal) | CPT/HCPCS: 99212 ==

== ENCOUNTER 2024-07-05 10:10 | Outpatient (AMB) | payer MEDICARE, SELFPAY ==
[2024-07-05 10:17] VITALS: BP 118/66; PULSE 58; O2SAT 96; BMI 32.1
--- NOTE | 2024-07-05 10:17 | A.OFFVIS_ITS ---
Intake Vital Signs 07/05/24 10:17 Height 5 ft 4 in Weight 187 lb BMI 32.1 BP 118/66 Blood Pressure Location Lt brachial Position Sitting Pulse 58 Pulse Source Pulse Oximeter Pulse Oximetry (%) 96 Oxygen Delivery Method Room Air Intake Visit Reasons: [facility] G0439 - see comments Allergies gluten [GLUTEN] Allergy (Severe, Verified 07/05/24 10:24) ABD PAIN Sulfa (Sulfonamide Antibiotics) [SULFA(SULFONAMIDE ANTIBIOTICS)] Allergy (Severe, Verified 07/05/24 10:24) Rash mirtazapine Adverse Reaction (Severe, Verified 07/05/24 10:24) peripheral edema Medication List - Last Reconciled 07/05/24 by Celestina Zimmerman MD amlodipine 10 mg PO QAM 90 days budesonide 32 mcg/actuation 1 spray intranasal BID compress.stocking,knee,reg,med apply in the am and remove in the pm furosemide 40 mg PO DAILY gabapentin 300 mg PO DAILY gabapentin 100 mg PO TID hydralazine 75 mg PO BEDTIME hydralazine 25 mg PO DIRECTED labetalol 100 mg PO BID levothyroxine 100 mcg PO DAILY lorazepam 1 mg PO BID montelukast (Singulair) 10 mg PO DAILY PRN 90 days nebulizers As directed omeprazole 40 mg PO BID oxybutynin chloride 5 mg PO BEDTIME prochlorperazine maleate (Compazine) 10 mg PO BID PRN ropinirole 0.5 mg PO BEDTIME semaglutide (weight loss) (Wegovy) 0.25 mg (0.5 mL) subcut QWEEK sertraline 100 mg PO DAILY sodium fluoride-pot nitrate 1.1-5 % PO BEDTIME spironolactone 50 mg (2 x 25 mg) PO DAILY trazodone 100 mg PO BEDTIME PRN ursodiol 500 mg PO BID HPI [facility] G0439 - see comments HPI Details Initiated the conversation about Advanced Directives. Advanced Directives help? patients prepare for current and future decisions about their medical treatment? and place of care. Discussed with patient that it is a process where a patients? current condition and prognosis are reviewed, their wishes for information? regarding their illness are elicited, and likely medical dilemmas are presented? and options discussed. The form can be amended as needed, reviewed yearly and? make changes as needed IPPE/AWV ? year old presents? for her ? Annual? Wellness Visit, initial visit.? Medical / Social History Reviewed? Past Medical History ?Yes? . ? [place]? of Care / Care Team list updated ?Yes . ? Surgical/Hospitalization? History ?Yes . ? Current Medications? (including OTC and supplements) ?Yes . ? Family History ?Yes? . ? Tobacco? Control form ?Yes . ? AUDIT-C (Alcohol use) form? ?Yes . ? Illicit drug use in Social? History ?Yes . ? Current diagnosis of? depression? ?No ? Appropriate PHQ2/PHQ9? completed ?Yes . ? Data entered by ?Medical? Director Fundraising and reviewed by provider ? Fall Risk ? Fall? History? Have you had any falls with? injury in the past year? ?No . ? Have you had two or more? falls in the past year? ?No . ? Fall Risk Assessment: ?No? falls in the past year . ? HRA filled out by? the patient, reviewed by Provider and scanned. ? IPPE/AWV ? Balance? [place]? ?Yes . ? Tandem? walk ?Yes . ? Walk and? Turn ?Yes . ? Rise from? sit to stand ?Yes . ?Vision? Corrective? lens ?Yes ? Vision? screen ? Up-to-date, has an appointment [] for vision? screening and glaucoma screening ?Hearing? Whisper? test ?pass .? Initiated the conversation about Advanced Directives. Advanced Directives help? patients prepare for current and future decisions about their medical treatment? and place of care. Discussed with patient that it is a process where a patients? current condition and prognosis are reviewed, their wishes for information? regarding their illness are elicited, and likely medical dilemmas are presented? and options discussed. The form can be amended as needed, reviewed yearly and? make changes as needed Written? Plan?Completed. See Patient? Documents. [facility] Medical History (Updated 07/05/24 @ 10:53 by Celestina Zimmerman MD) Pulmonary nodule Pulmonary nodule Hearing loss Annual physical exam Dysphagia Vocal cord dysfunction Asthma-COPD overlap syndrome Weight gain Edema Urinary incontinence Asthma History of concussion Shortness of breath Lower extremity edema Dyspnea Hypoxemia requiring supplemental oxygen Nonspecific interstitial pneumonitis Peripheral neuropathy Psychiatric disorder Mammogram normal Hyperlipemia Pulmonary hypertension DANIS on CPAP Pneumonitis Orthostatic hypotension dysautonomic syndrome Hypothyroid HTN (hypertension) Celiac disease Diastolic CHF Surgical History Hx of esophagogastroduodenoscopy History of total abdominal hysterectomy and bilateral salpingo-oophorectomy Endometrial adenocarcinoma History of colonoscopy Family History Father Savita cell cancer HTN (hypertension) CVD (cardiovascular disease) Mother Crohn disease Cancer Maternal Grandfather No problems noted. Maternal Grandmother No problems noted. Paternal Grandfather CVD (cardiovascular disease) Paternal Grandmother COPD (chronic obstructive pulmonary disease) Brother No problems noted. Sister No problems noted. Daughter No problems noted. Social History Household Members: Spouse Housing: House Are you a primary healthcare consultant to a significant other at home: No Do you presently have visiting nurse or other home services: No Alcohol intake: current Alcohol intake frequency: holidays/special occasions only Comment: pt resting Patient Tobacco Use Status: Former Tobacco user Tobacco use type: Cigarette Years Smoked: 2 e-Cigarette/Vaping Use: Never Used Second Hand Smoke Exposure: No service: No Current occupational status: retired Cognitive needs: No Hearing needs: Yes Vision needs: Yes Questionnaire Medicare Wellness Checkup [age] What gender do you identify with?: female During the past 4 weeks, how much have you been bothered by emotional problems such as feeling anxious, depressed, irritable, sad or downhearted, and blue?: not at all During the past 4 weeks, has your physical & emotional health limited your social activities with family, friends, neighbors, or groups?: not at all During the past 4 weeks, how much bodily pain have you generally had?: very mild pain During the past 4 weeks, was someone available to help you if you needed & wanted help?: yes, as much as I wanted During the past 4 weeks, what was the hardest physical activity you could do for at least 2 minutes?: light Can you get to places out of walking distance without help? (For eg., can you travel alone on buses, taxis or drive your car?): Yes Can you go shopping for groceries or clothes without someone's help?: Yes Can you prepare your own meals?: Yes Can you do your housework without help?: Yes Because of any health problems, do you need the help of another person with your personal care needs such as eating, bathing, dressing or getting around the house?: No Can you handle your own money without help?: Yes During the past 4 weeks, how would you rate your health in general?: good During the past 4 weeks how have things been going for you?: good & bad parts about equal Are you having difficulties driving your car?: no Do you always fasten your seat belt when you are in a car?: yes, usually During past 4 weeks, have you been bothered by the following: never: Falling or dizzy when standing up, Sexual problems? and Problems using the telephone? and sometimes: Trouble eating well?, Teeth or denture problems? and Tiredness or fatigue? Have you fallen 2 or more times in the past year?: No Are you afraid of falling?: Yes Are you a smoker?: no During the past 4 weeks, how many drinks of wine, beer, or other alcoholic beverages did you have?: no alcohol at all Do you exercise for about 20 minutes 3 or more times a week?: yes, most of the time Have you been given information to help with the following?: no: Hazards in your house that might hurt you? and no: Keeping track of your medications? How often do you have trouble taking medicines the way you have been told to take them?: I always take medicine as prescribed How confident are you that you can control & manage most of your health problems?: very confident What is your race?: White Mini Mental State Exam (MMSE) Orientation What is the (year) (season) (date) (day) (month)?: year, season, date, day and month Where are we (state) (county) (town or city) (hospital) (floor)?: state, county, town or city, hospital/clinic and floor Registration Name of 3 unrelated objects clearly and slowly, then ask patient to repeat all 3 of them. (1st repeat determines score. Make sure they can repeat all three): object 1, object 2 and object 3 Attention & Calculation (CHOOSE ONE) Spell WORLD backwards (DLROW): 5 letters Recall Ask patient to repeat the 3 items from question #3.: object 1, object 2 and object 3 Language Show patient a wristwatch & ask what it is. Repeat for pencil.: watch and pencil Ask the patient to repeat the phrase 'No ifs, ands, or buts' after you.: correct Ask the patient to 'take a piece of paper with their right hand' 'fold paper in half' 'place paper on floor': take paper in right hand, fold paper in half and place paper on floor Print the sentence 'CLOSE YOUR EYES' on a piece. If patient actually closes eyes then score.: followed written direction Give patient a blank piece of paper & ask to write a sentence. Score if it contains a noun & verb.: sentence contains subject and verb Score Score: 29 PHQ-9 Over the last 2 weeks, how often have you been bothered by any of the following problems? 1. Little interest or pleasure in doing things: not at all 2. Feeling down, depressed, or hopeless: not at all 3. Trouble falling or staying asleep, or sleeping too much: not at all 4. Feeling tired or having little energy: not at all 5. Poor appetite or overeating: not at all 6. Feeling bad about yourself - or that you are a failure or have let yourself or your family down: not at all 7. Trouble concentrating on things, such as reading the newspaper or watching television: not at all 8. Moving or speaking so slowly that other people could have noticed. Or the opposite - being so fidgety or restless that you have been moving around a lot more than usual: not at all 9. Thoughts that you would be better off or of hurting yourself in some way: not at all Total score: 0 Depression Screening Interpretation: Negative Depression Screening Done: Yes [id number] - PHQ-9 Billing: Yes Source: Developed by Drs. Judson Bravo, Breonna Fernandez, Jared Johnson and colleagues, with an educational shola from [employer]. Review of Systems Const All systems reviewed & are unremarkable except as noted in HPI and below Reports no additional complaints Eyes Reports no additional complaints ENT Reports no additional complaints Card Reports no additional complaints Resp Reports no additional complaints GI Reports no additional complaints Reports no additional complaints Musc Reports no additional complaints Physical Exam Vital Signs: Last Vital Signs Pulse 58 07/05/24 10:17 BP 118/66 07/05/24 10:17 Pulse Ox 96 07/05/24 10:17 Oxygen Delivery Method Room Air 07/05/24 10:17 BMI result Body Mass Index 32.1 Const General: no acute distress HEENT Head: Yes normal to inspection Neck Neck: Yes no lymphadenopathy and Yes supple Resp Effort & Inspection: normal respiratory effort Auscultation: clear to auscultation bilaterally Cardio Rhythm: regular rhythm Heart sounds: S1 normal heart sound present and S2 normal heart sound present GI Inspection: Yes normal to inspection Palpation (GI): Soft to palpation Percussion: Yes normal to percussion Auscultation: normal bowel sounds Neuro General: CN's II-XI intact bilaterally Gait exam (Neuro): Normal gait present Motor exam (neuro): 5/5 motor strength present throughout Extrem General: Yes no clubbing, cyanosis or edema Assessment & Plan Assessment & Plan (1) Diastolic CHF: Comment: Echo 2020 nl EF Code(s): I50.30 - Unspecified diastolic (congestive) heart failure Qualifiers: Heart failure chronicity: acute on chronic Qualified Code(s): I50.33 - Acute on chronic diastolic (congestive) heart failure Plan: Continue current medications follow-up with the Cardiology (2) Hypothyroid: Code(s): E03.9 - Hypothyroidism, unspecified Plan: Continue levothyroxine monitor TSH level (3) Hyperlipemia: Code(s): E78.5 - Hyperlipidemia, unspecified Plan: Low-cholesterol diet increase physical activity discussed with the patient check lipid profile in 6 months (4) Annual physical exam: Code(s): Z00.00 - Encounter for general adult medical examination without abnormal findings Plan: Well-balanced diet regular physical activity weight loss discussed with the patient she is up-to-date with the mammogram colonoscopy, check DEXA (5) Postmenopausal: Code(s): Z78.0 - Asymptomatic menopausal state Plan: CHECK DEXA Orders: Orders TSH reflex Free T4 6 Months E03.9 - Hypothyroidism, unspecified, E78.5 - Hyperlipidemia, unspecified, I50.33 - Acute on chronic diastolic (congestive) heart failure, Z00.00 - Encounter for general adult medical examination without abnormal findings Vitamin D 25-OH Total 6 Months E03.9 - Hypothyroidism, unspecified, E78.5 - Hyperlipidemia, unspecified, I50.33 - Acute on chronic diastolic (congestive) heart failure, Z00.00 - Encounter for general adult medical examination without abnormal findings XR DEXA axial skeleton Today Z78.0 - Asymptomatic menopausal state Comprehensive [place]. Panel Fast 6 Months E03.9 - Hypothyroidism, unspecified, E78.5 - Hyperlipidemia, unspecified, I50.33 - Acute on chronic diastolic (congestive) heart failure, Z00.00 - Encounter for general adult medical examination without abnormal findings Complete Blood Count Auto Diff 6 Months E03.9 - Hypothyroidism, unspecified, E78.5 - Hyperlipidemia, unspecified, I50.33 - Acute on chronic diastolic (congestive) heart failure, Z00.00 - Encounter for general adult medical examination without abnormal findings Lipid Panel 6 Months E03.9 - Hypothyroidism, unspecified, E78.5 - Hyperlipidemia, unspecified, I50.33 - Acute on chronic diastolic (congestive) heart failure, Z00.00 - Encounter for general adult medical examination without abnormal findings Hemoglobin A1c 6 Months E03.9 - Hypothyroidism, unspecified, E78.5 - Hyperlipidemia, unspecified, I50.33 - Acute on chronic diastolic (congestive) heart failure, Z00.00 - Encounter for general adult medical examination without abnormal findings Medications: Discontinued semaglutide (weight loss) (Scott) Discontinued Reason: Doctor's Order 0.25 mg (0.5 mL) subcut QWEEK 2 mL 2RF Quality Reporting (2019) Depression/Bipolar (159/160/161/177) PHQ-9: Total score: 0 Coding Level of Care Code Medicare Subsequent (G0439) Diagnoses Diastolic CHF I50.33 Heart failure chronicity: acute on chronic Hypothyroid E03.9 Hyperlipemia E78.5 Annual physical exam Z00.00 Postmenopausal Z78.0 CPT Codes Advance Care Planning - Advance Care Planning discussion: On file, no changes ([id number]) Advance Care Planning - Time spent: 1-15 minutes, on File ([id number]) Additional Codes PHQ-9 - 47607 - PHQ-9 Billing: Yes ([id number]) Advance Care Planning Advance Care Planning discussion: On file, no changes Forms completed: Health Care Proxy Time spent: 1-15 minutes, on File Did not discuss due to Cultural/Spiritual beliefs: Yes
--- NOTE | 2024-07-05 10:17 | MHC.PC.OV ---
Intake Visit Reasons: [facility] G0439 - see comments Allergies gluten [GLUTEN] Allergy (Severe, Verified 06/08/24 09:40) ABD PAIN Sulfa (Sulfonamide Antibiotics) [SULFA(SULFONAMIDE ANTIBIOTICS)] Allergy (Severe, Verified 06/08/24 09:40) Rash mirtazapine Adverse Reaction (Severe, Verified 06/08/24 09:40) peripheral edema Tobacco use date assessed: 05/11/24 Dental Screening Dental Screen Date: 05/11/24 [facility] Medical History Pulmonary nodule Pulmonary nodule Hearing loss Annual physical exam Dysphagia Vocal cord dysfunction Asthma-COPD overlap syndrome Weight gain Edema Urinary incontinence Asthma History of concussion Shortness of breath Lower extremity edema Dyspnea Hypoxemia requiring supplemental oxygen Nonspecific interstitial pneumonitis Peripheral neuropathy Psychiatric disorder Mammogram normal Hyperlipemia Pulmonary hypertension DANIS on CPAP Pneumonitis Orthostatic hypotension dysautonomic syndrome Hypothyroid HTN (hypertension) Celiac disease Diastolic CHF Surgical History Hx of esophagogastroduodenoscopy History of total abdominal hysterectomy and bilateral salpingo-oophorectomy Endometrial adenocarcinoma History of colonoscopy Family History Father Savita cell cancer HTN (hypertension) CVD (cardiovascular disease) Mother Crohn disease Cancer Maternal Grandfather No problems noted. Maternal Grandmother No problems noted. Paternal Grandfather CVD (cardiovascular disease) Paternal Grandmother COPD (chronic obstructive pulmonary disease) Brother No problems noted. Sister No problems noted. Daughter No problems noted. Social History Household Members: Spouse Housing: House Are you a primary care program director to a significant other at home: No Do you presently have visiting nurse or other home services: No Alcohol intake: current Alcohol intake frequency: holidays/special occasions only Comment: pt resting Patient Tobacco Use Status: Former Tobacco user Tobacco use type: Cigarette Years Smoked: 2 e-Cigarette/Vaping Use: Never Used Second Hand Smoke Exposure: No service: No Current occupational status: retired Cognitive needs: No Hearing needs: Yes Vision needs: Yes Questionnaire Thrive Questionnaire Date Thrive assessed: 05/11/24 MONA-7 AMB Questionnaire MONA-7 Date MONA - 7 assessed: 05/11/24 Source: Developed by Drs. Judson Bravo, Breonna Fernandez, Jared Johnson and colleagues, with an educational shola from [employer]. Physical exam (Primary Care) Tobacco/Smoking Status: Tobacco use Status Tobacco use date assessed 05/11/24 05/11/24 14:00 Patient Tobacco Use Status Former Tobacco user 05/11/24 14:00 Tobacco use type Cigarette 05/11/24 14:00 e-Cigarette/Vaping Use Never Used 05/11/24 14:00 Thrive Assessment: Date of Thrive Assessment Date Thrive assessed 05/11/24 06/08/24 09:32 Coding
--- OUTSIDE RECORDS SUMMARY | 2024-07-11 01:31 | XMS_ITS | Continuity of Care Document ---
Author Organization [facility] Address [address] [place] [address] Phone Care Team Providers Care Nurse Discharge Planner Name Role Phone Sesar QUINTERO, RVT, RPVI, [...] Mins- [place] & [place] [facility], [address] [place] [address] Dr Mccollum 1000[facility] [address]Anuj [place], [id number], [place] tel:[phone] [facility] [place] Venous insufficiency (chronic) (peripheral)E ssential (primary) hypertension 4 Sesar QUINTERO, RVT, RPASH Roper. [address] [facility], [address], [place], [place], [id number], [place]. tel:[phone] Referring Provider: Celestina Zimmerman MD S, [address] [place] [address], [address]. tel:[phone] [facility], [address] [place] [address] Dr Mccollum 1000[address], [place], [id number], [place] tel:[phone] [facility] Chronic venous hypertension (idiopathic) with other complications of right lower extremity Oct-2 4 Sesar QUINTERO RVT, RPVI Robert. [address] [place] [address], Suite [facility], [place], [id number], [place]. tel:[phone] Referring Provider: Celestina Zimmerman MD S, [address] [place] [address], [place], [address]. tel:[phone] [facility], [address] [place] [address] Dr Mccollum [address]SuAnuj weathers [place], [id number], [place] tel:[phone] [facility] [place] Encounter for follow-up examination after completed treatment for conditions other than malignant nePain in right leg Sep-2 4 Sesar QUINTERO RVT, RPVI Robert. [address] [place] [address], Suite [facility], [place], [id number], [place]. tel:[phone] Referring Provider: Celestina Zimmerman MD S, [address] [place] [address], [place], [address]. tel:[phone] [place] [facility], [address] [place] [address] Dr Mccollum 1000Suite Anuj Zaldivar [place], [id number], [place] tel:[phone] [facility] - [facility] Varicose veins of right lower extremity with other complications Sep-2 4 Sesar QUINTERO RVT, RPVI Robert. [address] [place] [address], Suite [facility], [place], [id number], [place]. tel:[phone] Referring Provider: Celestina Zimmerman MD S, [address] [place] [address], [place], [address]. tel:[phone] Office/Outpt E&M Established 15 Mins- [place] & [place] [facility], [address] [place] [address] Dr Mccollum 1000SuAnuj weathers [place], [id number], [place] tel:[phone] CV[facility] - [facility] Chronic venous hypertension (idiopathic) without complications of bilateral lower extremity Sep-1 4 Sesar QUINTERO RVT, RPVI Robert. [address] [place] [address], [address], [place], [id number], [place]. tel:[phone] Referring Provider: Celestina Zimmerman MD S, [address] [place] [address], [place], [address]. tel:[phone] [facility], [address] [place] [address] Dr Mccollum 1000Suite 1000Anuj [place], [id number], [place] tel:[phone] [facility] [place] Encounter for follow-up examination after completed treatment for conditions other than malignant nePain in right leg 4 Sesar QUINTERO RVT, SUMEET Roper. [address] [place] [address], [place] [address], [facility] [place] [id number], [place]. tel:[phone] Referring Provider: Celestina Zimmerman MD S, [address] [place] [address], [address]. tel:[phone] [facility], [address] [place] [address] [facility] [address] [address]An[place], [id number], [place] tel:[phone] CV[facility] - [place] [facility] Encounter for follow-up examination after completed treatment for conditions other than malignant nePain in right lower leg 4 Sesar QUINTERO RVT, SUMEET Roper. [address] [place] [address], [place] [address], [place], [id number], [place]. tel:[phone] Referring Provider: Celestina Zimmerman MD S, [address] [place] [address], [address]. tel:[phone] [facility], [address] [place] [address] Dr Mccollum 1000Suite 1000Anuj [place], [id number], [place] tel:[phone] [facility] [place] [facility] Encounter for follow-up examination after completed treatment for conditions other than malignant neChronic venous hypertension (idiopathic) with other complications of right lower extremity 4 Sesar QUINTERO RVT, SUMEET Roper. [address] [place] [address], Suite [facility], [place], [id number], [place]. tel:[phone] Referring Provider: Celestian Zimmerman MD S, [address] [place], [place] [address], [place], [address]. tel:[phone] [facility], [address] [place] [address] Dr Mccollum 1000SuAnuj weathers [place], [id number], [place] tel:[phone] [facility] [place] Chronic venous hypertension (idiopathic) with inflammation of right lower extremity 0 4 Owen Cole. [address] [facility], [address], [facility] [place], [id number], [place]. tel:[phone] Referring Provider: Celestina Zimmerman MD S, [address] [place] [address], [place], [address]. tel:[phone] [facility] MD [facility], [address] [place] [address] Dr Mccollum 1000SuAnuj weathers [place], [id number], [place] tel:[phone] [facility] [place] Varicose veins of right lower extremity with other complications 4 Sesar QUINTERO RVT, SUMEET Roper. [address] [facility], [place] [address], [facility] [place], [id number], [place]. tel:[phone] Referring Provider: Celestina Zimmerman MD S, [address] [place] [address], [place], [address]. tel:[phone] Office/Outpt E&M Established 25 Mins- [place] & [place] [facility], [address] [place] [address] Dr Mccollum 1000SuAnuj weathers [place], [id number], [place] tel:[phone] [facility] [place] Chronic venous hypertension (idiopathic) with other complications of bilateral lower extremity 4 Sesar QUINTERO RVT, RPVI Robert. [address] [facility] [facility], [address], [facility] [place], [id number], [place]. tel:[phone] Referring Provider: Celestina Zimmerman MD S, [address] [place] [address], [place], [address]. tel:[phone] [facility] MD [facility], [address] [place] [address] Dr Mccollum 1000SuAnuj weathers [place], [id number], [place] tel:[phone] [facility] - [facility] Chronic venous hypertension (idiopathic) with other complications of bilateral lower extremity 4 Sesar QUINTERO RVT, RPVI Robert. [address] [place] [address], [place], [place], [id number], [place]. tel:[phone] Referring Provider: Celestina Zimmerman MD S, [address] [place] [address], [place], [address]. tel:[phone] [facility], [address] [place] [address] Dr Mccollum 1000Suite Anuj Zaldivar [place], [id number], [place] tel:[phone] [facility] - [facility] Venous insufficiency (chronic) (peripheral)N evus, non-neoplasti c 4 Owen Cole. [address] [place] [address], [place], [place], [id number], [place]. tel:[phone] Referring Provider: Celestina Zimmerman MD S, [address] [place] [address], [place], [address]. tel:[phone] Office/Outpt E&M Established 15 Mins- [place] & [place] [facility], [address] [place] [address] Dr Mccollum 1000Suite 1000Anuj [place], [id number], [place] tel:[phone] [facility] - [facility] Essential (primary) hypertensionV enous insufficiency (chronic) (peripheral)P ain in right lower legChronic venous hypertension (idiopathic) without complications of bilateral lower extremity 4 Sesar QUINTERO, SURESH, SUMEET Roper. [facility] [place] [address], [place], [place], [id number], [place]. tel:[phone] Referring Provider: Celestina Zimmerman MD S, [address] [place] [address], [place], [address]. tel:[phone] Office/Outpt E&M Established 15 Mins [facility], [address] [place] [address] Dr Mccollum 1000Suite 1000Anuj [place], [id number], [place] tel:[phone] [facility] Localized edemaVenous insufficiency (chronic) (peripheral)E ssential (primary) hypertension 4 Darrell Henao. [address] [facility] [address], [facility] [place], [id number], [place]. tel:[phone] Referring Provider: Celestina Zimmerman MD S, [address] [place] [address], [place], [address]. tel:[phone] [facility], [address] [place] [address] [facility] 1000Suite 1000Anuj [place], [id number], [place] tel:[phone] [facility] - [facility] Chronic venous hypertension (idiopathic) with other complications of bilateral lower extremity 4 Sesar QUINTERO, JUVENTINOT, VI Judson. [address] [place] [address], [facility] [place], [id number], [place]. tel:[phone] Referring Provider: Celestina Zimmerman MD S, [address] [place] [address], [place], [address]. tel:[phone] [facility], [address] [place] [address] [facility] 1000Suite 1000Anuj [place], [id number], [place] tel:[phone] [facility] - [facility] Encounter for follow-up examination after completed treatment for conditions other than malignant nePain in left leg May- 3 Liam QUINTERO FACS RVT ASH Cha. [facility] [place] [address], [place], [address], [place]. tel:[phone] Referring Provider: Shad Wheeler MD FACS RVT RP, [address] [place] [address], [place], [address]. tel:[phone] [place] [facility], [address] [place] [address] [address] 1000Anuj [place], [id number], [place] tel:[phone] [facility] - [facility] Chronic venous hypertension (idiopathic) with inflammation of left lower extremity May- 3 Sesar QUINTERO RVT, RPVI Judson. [address] [place] [address], Suite [facility], [facility] [place], [id number], [place]. tel:[phone] Referring Provider: Shad Wheeler MD FACS RVT RP, [facility] [address], [place], [address]. tel:[phone] [place] [facility], [address] [place] [address] Dr [address], [place], [id number], [place] tel:[phone] [facility] - [place] Encounter for follow-up examination after completed treatment for conditions other than malignant nePain in right leg Sep-2 3 Liam QUINTERO FACS RVT [facility] Shad Cha. [facility], [address], [place], [address], [place]. tel:[phone] Referring Provider: Shad Wheeler MD FACS RVT [facility], [address] [place] [address] Suite [facility], [place], [address]. tel:[phone] [place] [facility], [address] [place] [address] [address], [place], [id number], [place] tel:[phone] [facility] Chronic venous hypertension w inflammation of r low extrem Sep-2 3 Sesar QUINTERO, RVT, [facility] Judson. [address] [place] [address], Suite [facility], [place], [id number], [place]. tel:[phone] Referring Provider: Shad Wheeler MD FACS T [facility], [address] [place] [address] [address], [place], [address]. tel:[phone] Office/Outpt E&M Established 10 Mins - [facility], [address] [place] [address] [address], [place], [id number], [place] tel:[phone] [facility] Chronic venous htn w oth comp of bilateral low extrm Sep-1 3 Liam QUINTERO FACS RVT ASH Cha. [address] [place] [address], [address], [place], [address], [place]. tel:[phone] Referring Provider: Shad Wheeler MD FACS RVT [facility], [address] [place] [address] [address], [place], [address]. tel:[phone] [place] [facility], [address] [place] [address] [address], [place], [id number], [place] tel:[phone] [facility] Pain in right legPain in left leg 3 Liam QUINTERO [facility] Shad Cha. [address] [facility], [address], [facility] [place], [address], [place]. tel:[phone] Referring Provider: Shad Wheeler MD [facility], [address] [place] [address] [address], [facility] [place], [address]. tel:[phone] Office/Oupt E&M New Pt 45 Mins [facility], [address] [place] [address] [address], [place], [id number], [place] tel:[phone] [facility] - [place] Chronic venous htn w oth comp of bilateral low extrmPain in right lower legPain in left lower legPain in right legRestless legs syndromeEssen tial (primary) hypertensionP ain in left legCramp and spasmLocalize d edema 3 Liam QUINTERO [facility] Shad Semaj. [address] [place] [address], Suite [facility], [facility] [place], [address], [place]. tel:[phone] Referring Provider: Shad Wheeler MD [facility], [address] [place] [address], [facility] [place], [address]. tel:[phone] Family History Family Member Type Diagnosis Age At Onset No Information Payers Payer name Insurance type Covered libertarian ID Authorsaraha tirosa(s) Medicare DANYELL VALADEZ [id number] [facility] DANYELL [id number] Social History Type Description Quantity Date Captured [...]
== END 2024-07-05 14:35 | disposition home or self-care (01) ==
LOC: HO.HMCC 10:12
PROVIDERS: PCP Internal Medicine; Visit Provider Internal Medicine
DX: Z00.00 Encounter for general adult medical examination without abnormal findings (principal); I50.33 Acute on chronic diastolic (congestive) heart failure; E03.9 Hypothyroidism, unspecified; E78.5 Hyperlipidemia, unspecified; Z78.0 Asymptomatic menopausal state

== ENCOUNTER → 2024-07-05 10:10 | Outpatient (BNVA) | payer MEDICARE, SELFPAY | PROVIDERS: PCP Internal Medicine; Visit Provider Internal Medicine | DX: Z00.00 Encounter for general adult medical examination without abnormal findings (principal); I50.33 Acute on chronic diastolic (congestive) heart failure; E03.9 Hypothyroidism, unspecified; E78.5 Hyperlipidemia, unspecified; Z78.0 Asymptomatic menopausal state | CPT/HCPCS: 96127 ==

== ENCOUNTER 2024-07-16 18:30 | Emergency (ER) | payer MEDICARE, SELFPAY ==
--- NOTE | ~2024-07-16 | XR_ITS ---
EXAMINATION: XR LUMBOSACRAL SPINE CLINICAL INFORMATION: lower back pain COMPARISON: None available. TECHNIQUE: Three views of the lumbosacral spine. FINDINGS: Mild rightward curvature of the spine. Vertebral body sagittal alignment is maintained. Vertebral body heights are maintained. No evidence of acute fracture. Multilevel mild-moderate disc degenerative changes. There is moderate disc degeneration at L4-5. Multilevel facet degeneration. SI joints are intact. No suspicious soft tissue calcification. Vascular calcification. XR/XR lumbar spine 2-3V IMPRESSION: No radiographic evidence of acute fracture. Mild-moderate lumbar spondylosis. Electronically signed by: Cristi Heredia MD 07/16/2024 10:54 PM DHARA BROUSSARD
--- OUTSIDE RECORDS SUMMARY | 2024-07-16 18:32 | XMS_ITS | Continuity of Care Document ---
Author Organization [facility] Address [address] [place] [address] Phone Care Team Providers Care Data Warehouse Specialist Name Role Phone Sesar QUINTERO, RVT, RPVI, [...] Mins- [place] & [place] [facility], [address] [place] [address] Dr Mccollum [facility] [address], [id number], [place] tel:[phone] [facility] [place] Venous insufficiency (chronic) (peripheral)E ssential (primary) hypertension 4 Sesar QUINTERO, RVT, RPASH Roper. [address] [facility], [address], [place], [place], [id number], [place]. tel:[phone] Referring Provider: Celestina Zimmerman MD S, [address] [place] [address], [address]. tel:[phone] [facility], [address] [place] [address] Dr Mccollum [address], [place], [id number], [place] tel:[phone] CVR [facility] Chronic venous hypertension (idiopathic) with other complications of right lower extremity Oct-2 4 Sesar QUINTERO RVT, RPVI Robert. [address] [place] [address], Suite [facility], [place], [id number], [place]. tel:[phone] Referring Provider: Celestina Zimmerman MD S, [address] [place] [address], [place], [address]. tel:[phone] [facility], [address] [place] [address] Dr Mccollum 1000SuAnuj weathers [place], [id number], [place] tel:[phone] CVR - [place] Encounter for follow-up examination after completed treatment for conditions other than malignant nePain in right leg Sep-2 4 Sesar QUINTERO RVT, RPVI Robert. [address] [place] [address], Suite [facility], [place], [id number], [place]. tel:[phone] Referring Provider: Celestina Zimmerman MD S, [address] [place] [address], [place], [address]. tel:[phone] [place] [facility], [address] [place] [address] Dr Mccollum 1000Suite Anuj Zaldivar [place], [id number], [place] tel:[phone] CVR - [facility] Varicose veins of right lower extremity with other complications Sep-2 4 Sesar QUINTERO RVT, RPVI Robert. [address] [place] [address], Suite [facility], [place], [id number], [place]. tel:[phone] Referring Provider: Celestina Zimmerman MD S, [address] [place] [address], [place], [address]. tel:[phone] Office/Outpt E&M Established 15 Mins- [place] & [place] [facility], [address] [place] [address] Dr Mccollum 1000SuAnuj weathers [place], [id number], [place] tel:[phone] CVR - [facility] Chronic venous hypertension (idiopathic) without complications of bilateral lower extremity Sep-1 4 Sesar QUINTERO RVT, RPVI Robert. [address] [place] [address], [address], [place], [id number], [place]. tel:[phone] Referring Provider: Celestina Zimmerman MD S, [address] [place] [address], [place], [address]. tel:[phone] [facility], [address] [place] [address] Dr Mccollum 1000Suite 1000Anuj [place], [id number], [place] tel:[phone] CVR - [place] Encounter for follow-up examination after completed treatment for conditions other than malignant nePain in right leg 4 Sesar QUINTERO RVT, SUMEET Roper. [address] [place] [address], [place] [address], [facility] [place] [id number], [place]. tel:[phone] Referring Provider: Celestina Zimmerman MD S, [address] [place] [address], [address]. tel:[phone] [facility], [address] [place] [address] [facility] [place] [address], [id number], [place] tel:[phone] CVR - [place] [facility] Encounter for follow-up examination after completed treatment for conditions other than malignant nePain in right lower leg 4 Sesar QUINTERO RVT, SUMEET Roper. [address] [place] [address], [place] [address], [place], [id number], [place]. tel:[phone] Referring Provider: Celestina Zimmerman MD S, [address] [place] [address], [address]. tel:[phone] [facility], [address] [place] [address] Dr Mccollum 1000Suite 1000Anuj [place], [id number], [place] tel:[phone] CVR - [place] [facility] Encounter for follow-up examination after completed treatment for conditions other than malignant neChronic venous hypertension (idiopathic) with other complications of right lower extremity 4 Sesar QUINTERO RVT, SUMEET Roper. [address] [place] [address], Suite [facility], [place], [id number], [place]. tel:[phone] Referring Provider: Celestina Zimmerman MD S, [address] [place], [place] [address], [place], [address]. tel:[phone] [facility], [address] [place] [address] Dr Mccollum 1000SuAnuj weathers [place], [id number], [place] tel:[phone] CV[place] - [place] Chronic venous hypertension (idiopathic) with inflammation of right lower extremity 0 4 Owen Cole. [address] [facility], [address], [facility] [place], [id number], [place]. tel:[phone] Referring Provider: Celestina Zimmerman MD S, [address] [place] [address], [place], [address]. tel:[phone] [facility] MD TORRES, [address] [place] [address] Dr Mccollum 1000SuAnuj weathers [place], [id number], [place] tel:[phone] CV[place] - [place] Varicose veins of right lower extremity with other complications 4 Sesar QUINTERO RVT, SUMEET Roper. [address] [facility], [place] [address], [facility] [place] [place], [id number], [place]. tel:[phone] Referring Provider: eClestina Zimmerman MD S, [address] [place] [address], [place], [address]. tel:[phone] Office/Outpt E&M Established 25 Mins- [place] & [place] [facility], [address] [place] [address] Dr Mccollum 1000SuAnuj weathers MD, [id number], [place] tel:[phone] CV[place] - [place] Chronic venous hypertension (idiopathic) with other complications of bilateral lower extremity 4 Sesar QUINTERO RVT, RPVI Robert. [address] [facility], [address], [facility] [place], [id number], [place]. tel:[phone] Referring Provider: Celestina Zimmerman MD S, [address] [place] [address], [place], [address]. tel:[phone] [facility] MD TORRES, [address] [place] [address] Dr Mccollum 1000SuAnuj weathers [place], [id number], [place] tel:[phone] CVR - [facility] Chronic venous hypertension (idiopathic) with other complications of bilateral lower extremity 4 Sesar QUINTERO RVT, RPVI Robert. [address] [place] [address], [place], [place], [id number], [place]. tel:[phone] Referring Provider: Celestina Zimmerman MD S, [address] [place] [address], [place], [address]. tel:[phone] [facility], [address] [place] [address] Dr Mccollum 1000Suite Anuj Zaldivar [place], [id number], [place] tel:[phone] CVR - [facility] Venous insufficiency (chronic) (peripheral)N evus, non-neoplasti c 4 Owen Cole. [address] [place] [address], [place], [place], [id number], [place]. tel:[phone] Referring Provider: Celestina Zimmerman MD S, [address] [place] [address], [place], [address]. tel:[phone] Office/Outpt E&M Established 15 Mins- [place] & [place] [facility], [address] [place] [address] Dr Mccollum 1000Suite 1000Anuj [place], [id number], [place] tel:[phone] CVR - [facility] Essential (primary) hypertensionV enous insufficiency (chronic) (peripheral)P ain in right lower legChronic venous hypertension (idiopathic) without complications of bilateral lower extremity 4 Sesar QUINTERO, SURESH, SUMEET Roper. [facility] [place] [address], [place], [place], [id number], [place]. tel:[phone] Referring Provider: Celestina Zimmemran MD S, [address] [place] [address], [place], [address]. tel:[phone] Office/Outpt E&M Established 15 Mins [facility], [address] [place] [address] Dr Mccollum 1000Suite 1000Anuj [place], [id number], [place] tel:[phone] CV[place] - [place] Localized edemaVenous insufficiency (chronic) (peripheral)E ssential (primary) hypertension 4 Darrell Henao. [address] [facility] [address], [facility] [place], [id number], [place]. tel:[phone] Referring Provider: Celestina Zimmerman MD S, [address] [place] [address], [place], [address]. tel:[phone] [facility], [address] [place] [address] [facility] 1000Suite 1000Anuj [place], [id number], [place] tel:[phone] [facility] - [facility] Chronic venous hypertension (idiopathic) with other complications of bilateral lower extremity 4 Sesar QUINTERO, JUVENTINOT, VI Judson. [address] [place] [address], [facility] [place], [id number], [place]. tel:[phone] Referring Provider: Celestina Zimmerman MD S, [address] [place] [address], [place], [address]. tel:[phone] [facility], [address] [place] [address] [facility] 1000Suite 1000Anuj [place], [id number], [place] tel:[phone] CVR - [facility] Encounter for follow-up examination after completed treatment for conditions other than malignant nePain in left leg May- 3 Liam QUINTERO FACS RVT ASH Cha. [facility] [place] [address], [place], [address], [place]. tel:[phone] Referring Provider: Shad Wheeler MD FACS RVT RP, [address] [place] [address], [place], [address]. tel:[phone] [place] [facility], [address] [place] [address] [address] 1000Anuj [place], [id number], [place] tel:[phone] CVR - [facility] Chronic venous hypertension (idiopathic) with inflammation of left lower extremity May- 3 eSsar QUINTERO RVT, RPVI Judson. [address] [place] [address], Suite [facility], [facility] [place] [place], [id number], [place]. tel:[phone] Referring Provider: Shad Wheeler MD FACS RVT RP, [facility] [facility] [address], [facility] [place], [address]. tel:[phone] [place] [facility], [address] [place] [address] Dr [address], [place], [id number], [place] tel:[phone] CVR - [place] Encounter for follow-up examination after completed treatment for conditions other than malignant nePain in right leg Sep-2 3 Liam QUINTERO FACS RVT [facility] Shad Cha. [facility] [facility], [address], [place], [address], [place]. tel:[phone] Referring Provider: Shad Wheeler MD FACS RVT [facility], [address] [place] [address] Suite [facility], [facility] [place], [address]. tel:[phone] [place] [facility], [address] [place] [address] [address], [place], [id number], [place] tel:[phone] CV[place] - [place] Chronic venous hypertension w inflammation of r low extrem Sep-2 3 Sesar QUINTERO, RVT, [facility] Judson. [address] [place] [address], Suite [facility], [place], [id number], [place]. tel:[phone] Referring Provider: Shad Wheeler MD FACS T [facility], [address] [place] [address] [address], [facility] [place], [address]. tel:[phone] Office/Outpt E&M Established 10 Mins - [facility], [address] [place] [address] [address], [place], [id number], [place] tel:[phone] CV[place] - [place] Chronic venous htn w oth comp of bilateral low extrm Sep-1 3 Liam QUINTERO FACS RVT ASH Cha. [address] [place] [address], [address], [place], [address], [place]. tel:[phone] Referring Provider: Shad Wheeler MD FACS RVT [facility], [address] [place] [address] [address], [place], [address]. tel:[phone] [place] [facility], [address] [place] [address] [address], [place], [id number], [place] tel:[phone] CVR - [place] Pain in right legPain in left leg 3 Liam QUINTERO [facility] Shad Cha. [address] [facility], [address], [facility] [place], [address], [place]. tel:[phone] Referring Provider: Shad Wheeler MD [facility], [address] [place] [address] [address], [facility] [place], [address]. tel:[phone] Office/Oupt E&M New Pt 45 Mins [facility], [address] [place] [address] [address], [place], [id number], [place] tel:[phone] CVR - [place] Chronic venous htn w oth comp of bilateral low extrmPain in right lower legPain in left lower legPain in right legRestless legs syndromeEssen tial (primary) hypertensionP ain in left legCramp and spasmLocalize d edema 3 Liam QUINTERO [facility] Shad Semaj. [address] [place] [address], Suite [facility], [facility] [place], [address], [place]. tel:[phone] Referring Provider: Shad Wheeler MD [facility], [address] [place] [address], [facility] [place], [address]. tel:[phone] Family History Family Member Type Diagnosis Age At Onset No Information Payers Payer name Insurance type Covered alliance party ID Authorsaraha tirosa(s) Medicare DANYELL VALADEZ [id number] [facility] DANYELL [id number] Social History Type Description Quantity Date Captured [...]
--- NOTE | 2024-07-16 18:35 | ED_ITS ---
HPI - General Adult General Chief complaint: Back Pain/Injury Stated complaint: lower back pain, no injury Time Seen by Provider: 07/16/24 21:32 Source: patient Limitations: no limitations History of Present Illness ED Provider: Jaleesa azul PA-C HPI narrative: 73-year-old female with a history of celiac disease, IBS, dysautonomic syndrome, diastolic heart failure, DANIS, asthma/COPD, GERD, esophageal dysmotility, Schatzki ring, hyperlipidemia, anxiety and depression, presents with lumbar back pain x 2 days. Pain was precipitated after doing too much ?housework?. Pain over entire lower back without radiation down either extremity. Denies weakness of lower extremities, saddle anesthesia, urinary retention or bowel incontinence. Pain worse with the transition changes, sitting to standing primarily. Patient is also having spontaneous spasms. Related Data Home Medications ?Medication ?Instructions ?Recorded ?Confirmed sertraline 100 mg tablet 100 mg PO DAILY 05/06/21 07/05/24 gabapentin 300 mg capsule 300 mg PO DAILY 10/16/22 07/05/24 hydralazine 25 mg tablet 75 mg PO BEDTIME 10/16/22 07/05/24 nebulizers 11/08/22 07/05/24 sodium fluoride 1.1 %-potassium PO BEDTIME 11/08/22 07/05/24 nitrate 5 % dental paste ropinirole 0.5 mg tablet 0.5 mg PO BEDTIME 11/22/22 07/05/24 gabapentin 100 mg capsule 100 mg PO TID 07/04/23 07/05/24 trazodone 100 mg tablet 100 mg PO BEDTIME PRN 07/19/23 07/05/24 lorazepam 1 mg tablet 1 mg PO BID 06/08/24 07/05/24 Previous Rx's ?Medication ?Instructions ?Recorded compress.stocking,knee,reg,med #2 ea 11/19/20 oxybutynin chloride 5 mg tablet 5 mg PO BEDTIME #90 tabs 01/04/23 montelukast 10 mg tablet 10 mg PO DAILY PRN allergy 06/08/23 (Singulair) symptoms 90 days #90 tabs labetalol 100 mg tablet 100 mg PO BID #180 tabs 10/24/23 spironolactone 25 mg tablet 50 mg (2 x 25 mg) PO DAILY #180 12/05/23 tabs prochlorperazine maleate 10 mg 10 mg PO BID PRN nausea and 02/07/24 tablet (Compazine) vomiting #30 tabs budesonide 32 mcg/actuation nasal 1 spray intranasal BID #8.43 mL 04/14/24 spray omeprazole 40 mg capsule,delayed 40 mg PO BID #180 caps 04/14/24 release amlodipine 10 mg tablet 10 mg PO QAM 90 days #90 tabs 04/20/24 ursodiol 500 mg tablet 500 mg PO BID #120 tabs 05/01/24 levothyroxine 100 mcg tablet 100 mcg PO DAILY #90 tabs 05/23/24 hydralazine 25 mg tablet 25 mg PO DIRECTED #360 tabs 06/25/24 furosemide 40 mg tablet 40 mg PO DAILY #180 tabs 06/27/24 methocarbamol 750 mg tablet 750 mg PO TID PRN pain #10 tabs 07/16/24 Allergies Allergy/AdvReac Type Severity Reaction Status Date / Time gluten [GLUTEN] Allergy Severe ABD PAIN Verified 07/16/24 18:43 Sulfa (Sulfonamide Allergy Severe Rash Verified 07/16/24 18:43 Antibiotics) [SULFA(SULFONAMIDE ANTIBIOTICS)] mirtazapine AdvReac Severe peripheral Verified 07/16/24 18:43 edema Review of Systems Review of Systems: Yes all other systems are reviewed and are negative Constitutional: Constitutional: Denies fatigue and Denies fever(s) Cardiovascular: Cardiovascular: Denies chest pain and Denies dyspnea Respiratory: Respiratory: Denies dyspnea Gastrointestinal: Gastrointestinal: Denies abdominal pain and Denies nausea Musculoskeletal: Musculoskeletal: Reports back pain, Denies muscle weakness, Denies numbness and Denies tingling Neurologic: Denies numbness and Denies tingling Endocrine: Endocrine: Denies fatigue [facility] Past Medical History Attestation statement: The following information was validated with the patient. Medical History (Updated 07/16/24 @ 22:36 by BELL Waters) Pulmonary nodule Pulmonary nodule Hearing loss Annual physical exam Dysphagia Vocal cord dysfunction Asthma-COPD overlap syndrome Weight gain Edema Urinary incontinence Asthma History of concussion Shortness of breath Lower extremity edema Dyspnea Hypoxemia requiring supplemental oxygen Nonspecific interstitial pneumonitis Peripheral neuropathy Psychiatric disorder Mammogram normal Hyperlipemia Pulmonary hypertension DANIS on CPAP Pneumonitis Orthostatic hypotension dysautonomic syndrome Hypothyroid HTN (hypertension) Celiac disease Diastolic CHF Surgical History Hx of esophagogastroduodenoscopy History of total abdominal hysterectomy and bilateral salpingo-oophorectomy Endometrial adenocarcinoma History of colonoscopy Family History Family History Father Savita cell cancer HTN (hypertension) CVD (cardiovascular disease) Mother Crohn disease Cancer Maternal Grandfather No problems noted. Maternal Grandmother No problems noted. Paternal Grandfather CVD (cardiovascular disease) Paternal Grandmother COPD (chronic obstructive pulmonary disease) Brother No problems noted. Sister No problems noted. Daughter No problems noted. Social History Social History Household Members: Spouse Housing: House Are you a primary care transitions nurse to a significant other at home: No Do you presently have visiting nurse or other home services: No Alcohol intake: current Alcohol intake frequency: holidays/special occasions only Comment: pt resting Patient Tobacco Use Status: Former Tobacco user Tobacco use type: Cigarette Years Smoked: 2 e-Cigarette/Vaping Use: Never Used Second Hand Smoke Exposure: No Advance Directives: No Advance Directives Information Provided: No Do you have a plan to hurt others: No Plan service: No Current occupational status: retired Cognitive needs: No Hearing needs: Yes Vision needs: Yes Physical Exam ED Vital Signs: Vital Signs - 24 hr 07/16/24 18:42 Temperature 97 F Pulse Rate 63 Respiratory Rate 16 Blood Pressure 127/55 L Pulse Oximetry 94 Oxygen Delivery Method Room Air BMI result Body Mass Index 31.9 Const Other: Alert, well-appearing Orientation/consciousness: patient oriented x3 Resp Other: Nonlabored respiration Cardio Other: Normal peripheral perfusion Skin Other: Warm dry no rash Neuro General: patient oriented x3, gait normal, no focal motor deficits and CN's II- XI intact bilaterally Psych Other: Calm cooperative Course Course Course Narrative: This is an RME done by BELL Jamison: Additional HPI, ROS, PE not included below will be deferred to primary provider. 73 yo f presents w/ atraumatic lower back pain worsening for the past few days, has been worsening after cleaning and be nding over. No red flag symptoms. No radiating symptoms into legs. On exam patient ambulatory into triage. Medical Decision Making Medical Decision Making MDM Narrative: 73-year-old female with a history of celiac disease, IBS, dysautonomic syndrome, diastolic heart failure, DANIS, asthma/COPD, GERD, esophageal dysmotility, Schatzki ring, hyperlipidemia, anxiety and depression, presents with lumbar back pain x 2 days. Pain over entire lower back without radiation down either extremity. Denies weakness of lower extremities, saddle anesthesia, urinary retention or bowel incontinence. Pain worse with the transition changes, sitting to standing primarily. Patient is also having spontaneous spasms. No relevant chronic issues History: Per patient I have considered the following differential diagnoses: Lumbar strain, lumbar radiculopathy/sciatica, cauda equina, compression fracture Plan: Patient here with lumbar strain without radicular symptoms. She also has no red flag signs symptoms concerning for cord compression. We will treat with a muscle relaxant, and the use of [id number]-[id number] Tylenol. I suggested a steroid taper or an NSAID, however the patient states due to her celiac disease she can not take these medications. She can follow up with her primary care provider as needed. X-ray obtained from triage, unremarkable. She is noted to be constipated, I did discuss this with the patient, she has been using ehyu-cwc-pfievib milk of magnesia over the past 2 days without relief. We will suggest an alternative bowel regimen. I have independently reviewed the following tests: X-ray lumbar spine: Degenerative changes noted, no compression fracture, patient noted to be constipated. Discharge Plan Discharge Clinical Impression: Lumbosacral strain, Acute constipation Patient Disposition: Home, Self-Care Instructions: Constipation (ED), Low Back Strain (ED), Lower Back Exercises (ED), Core Strengthening Exercises (ED) Additional Instructions: You are being treated for lumbar strain. See home care instructions. Use the methocarbamol as needed for your discomfort and muscle spasm, to note this medication may cause drowsiness do not drive or operate machinery while taking this medication. You can alternate the use of this medication with msqv-eup-cfwycuw Tylenol 1000 mg taken every 8 hours. I have provided you with home exercises to help prevent recurrence of lumbar strain. You were found to have degenerative changes of your lumbar spine, however there was no compression fracture of the vertebrae. You were incidentally found to be constipated on the x-ray. See home care instructions. You should use an eixg-syg-frwgbtz stool softener such as Colace, daily. In addition, you can use yoxq-thy-wzbopct MiraLax, several times a day, until you begin having large volume bowel movements. Mix the powder per package instructions. Follow up with your primary care provider as needed. Prescriptions: New methocarbamol 750 mg tablet 750 mg PO TID PRN (Reason: pain) Qty: 10 0RF No Action oxybutynin chloride 5 mg tablet 5 mg PO BEDTIME Qty: 90 3RF montelukast [Singulair] 10 mg tablet 10 mg PO DAILY PRN (Reason: allergy symptoms) 90 Days Qty: 90 3RF labetalol 100 mg tablet 100 mg PO BID Qty: 180 3RF spironolactone 25 mg tablet 50 mg PO DAILY Qty: 180 3RF prochlorperazine maleate [Compazine] 10 mg tablet 10 mg PO BID PRN (Reason: nausea and vomiting) Qty: 30 0RF omeprazole 40 mg capsule,delayed release(DR/EC) 40 mg PO BID Qty: 180 1RF amlodipine 10 mg tablet 10 mg PO QAM 90 Days Qty: 90 3RF ursodiol 500 mg tablet 500 mg PO BID Qty: 120 0RF levothyroxine 100 mcg tablet 100 mcg PO DAILY Qty: 90 2RF hydralazine 25 mg tablet 25 mg PO DIRECTED Qty: 360 0RF Rx Instructions: Take one tablet by mouth in the AM and 3 tabs at 5 PM daily furosemide 40 mg tablet 40 mg PO DAILY Qty: 180 1RF hydralazine 25 mg tablet 75 mg PO BEDTIME gabapentin 300 mg capsule 300 mg PO DAILY sertraline 100 mg tablet 100 mg PO DAILY budesonide 32 mcg/actuation spray,non-aerosol 1 spray intranasal BID Qty: 8.43 0RF Rx Instructions: administer into each nostril (DME) compress.stocking,knee,reg,med Misc See Rx Instructions .ROUTE .MEDSUPPLY Qty: 2 0RF Rx Instructions: apply in the am and remove in the pm ropinirole 0.5 mg tablet 0.5 mg PO BEDTIME (DME) nebulizers Misc See Rx Instructions .Route Rx Instructions: As directed sodium fluoride-pot nitrate 1.1-5 % paste PO BEDTIME gabapentin 100 mg capsule 100 mg PO TID trazodone 100 mg tablet 100 mg PO BEDTIME PRN lorazepam 1 mg tablet 1 mg PO BID Print Language: Other
[2024-07-16 18:42] VITALS: BP 127/55; PULSE 63; RESP 16; TEMP 36.1; O2SAT 94; BMI 31.9
--- OUTSIDE RECORDS SUMMARY | 2024-07-16 20:06 | XMS_ITS | Continuity of Care Document ---
Author Organization [facility] Address [address] [place] [address] Phone Care Team Providers Care Manager Solar Name Role Phone Sesar QUINTERO, RVT, RPVI, [...] Mins- [place] & [place] [facility], [address] [place] [address] Dr Mccollum [facility] [address]uj [place], [id number], [place] tel:[phone] [facility] [place] Venous insufficiency (chronic) (peripheral)E ssential (primary) hypertension 4 Sesar QUINTERO, RVT, RPASH Roper. [address] [facility], [address], [place], [place], [id number], [place]. tel:[phone] Referring Provider: Celestina Zimmerman MD S, [address] [place] [address], [address]. tel:[phone] [facility], [address] [place] [address] Dr Mccollum 1000[address], [place] Anuj, [id number], [place] tel:[phone] CVR [facility] Chronic venous hypertension (idiopathic) with other complications of right lower extremity Oct-2 4 Sesar QUINTERO RVT, RPVI Robert. [address] [place] [address], Suite [facility], [place], [id number], [place]. tel:[phone] Referring Provider: Celestina Zimmerman MD S, [address] [place] [address], [place], [address]. tel:[phone] [facility], [address] [place] [address] Dr Mccollum [address]SuAnuj weathers [place], [id number], [place] tel:[phone] CVR - [place] Encounter for follow-up examination after completed treatment for conditions other than malignant nePain in right leg Sep-2 4 Sesar QUINTERO RVT, RPVI Robert. [address] [place] [address], Suite [facility], [place], [id number], [place]. tel:[phone] Referring Provider: Celestina Zimmerman MD S, [address] [place] [address], [place], [address]. tel:[phone] [facility], [address] [place] [address] Dr Mccollum 1000Suite Anuj Zaldivar [place], [id number], [place] tel:[phone] CVR - [facility] Varicose veins of right lower extremity with other complications Sep-2 4 Sesar QUINTERO RVT, RPVI Robert. [address] [place] [address], Suite [facility], [place], [id number], [place]. tel:[phone] Referring Provider: Celestina Zimmerman MD S, [address] [place] [address], [place], [address]. tel:[phone] Office/Outpt E&M Established 15 Mins- [place] & [place] [facility], [address] [place] [address] Dr Mccollum 1000SuAnuj weathers MD, [id number], [place] tel:[phone] CVR - [facility] Chronic venous hypertension (idiopathic) without complications of bilateral lower extremity Sep-1 4 Sesar QUINTERO RVT, RPVI Robert. [address] [place] [address], [address], [place], [id number], [place]. tel:[phone] Referring Provider: Celestina Zimmerman MD S, [address] [place] [address], [place], [address]. tel:[phone] Deepti [facility], [address] [place] [address] Dr Mccollum 1000Suite 1000Anuj [place], [id number], [place] tel:[phone] CV[facility] - [place] Encounter for follow-up examination after completed treatment for conditions other than malignant nePain in right leg 4 Sesar QUINTERO RVT, SUMEET Roper. [address] [place] [address], [place] [address], [facility] [place] [id number], [place]. tel:[phone] Referring Provider: Celestina Zimmerman MD S, [address] [place] [address], [address]. tel:[phone] Deepti [facility], [address] [place] [address] [facility] [place] [address]An[place], [id number], [place] tel:[phone] CVR - [place] [facility] Encounter for follow-up examination after completed treatment for conditions other than malignant nePain in right lower leg 4 Sesar QUINTERO RVT, SUMEET Roper. [address] [place] [address], [place] [address], [place], [id number], [place]. tel:[phone] Referring Provider: Celestina Zimmerman MD S, [address] [place] [address], [address]. tel:[phone] Deepti [facility], [address] [place] [address] Dr Mccollum 1000Suite 1000Anuj [place], [id number], [place] tel:[phone] CVR - [place] [facility] Encounter for follow-up examination after completed treatment for conditions other than malignant neChronic venous hypertension (idiopathic) with other complications of right lower extremity 4 Sesar QUINTERO RVT, SUMEET Roper. [address] [place] [address], Suite [facility], [place], [id number], [place]. tel:[phone] Referring Provider: Celestina Zimmerman MD S, [address] [place], [place] [address], [place], [address]. tel:[phone] [facility], [address] [place] [address] Dr Mccollum 1000SuAnuj weathers [place], [id number], [place] tel:[phone] CVR - [place] Chronic venous hypertension (idiopathic) with inflammation of right lower extremity 0 4 Owen Cole. [address] [facility], [address], [facility] [place], [id number], [place]. tel:[phone] Referring Provider: Celestina Zimmerman MD S, [address] [place] [address], [place], [address]. tel:[phone] Deepti [facility] MD [facility], [address] [place] [address] Dr Mccollum 1000SuAnuj weathers [place], [id number], [place] tel:[phone] [facility] - [place] Varicose veins of right lower extremity with other complications 4 Sesar QUINTERO RVT, SUMEET Roper. [address] [facility], [place] [address], [facility] [place], [id number], [place]. tel:[phone] Referring Provider: Celestina Zimmerman MD S, [address] [place] [address], [place], [address]. tel:[phone] Office/Outpt E&M Established 25 Mins- [place] & [place] [facility], [address] [place] [address] Dr Mccollum 1000SuAnuj weathers MD, [id number], [place] tel:[phone] [facility] - [place] Chronic venous hypertension (idiopathic) with other complications of bilateral lower extremity 4 Sesar QUINTERO RVT, RPVI Robert. [address] [facility], [address], [facility] [place], [id number], [place]. tel:[phone] Referring Provider: Celestina Zimmerman MD S, [address] [place] [address], [place], [address]. tel:[phone] Deept[facility] MD [facility], [address] [place] [address] Dr Mccollum 1000SuAnuj weathers [place], [id number], [place] tel:[phone] CVR - [facility] Chronic venous hypertension (idiopathic) with other complications of bilateral lower extremity 4 Sesar QUINTERO RVT, RPVI Robert. [address] [place] [address], [place], [place], [id number], [place]. tel:[phone] Referring Provider: Celestina Zimmerman MD S, [address] [place] [address], [place], [address]. tel:[phone] [facility], [address] [place] [address] Dr Mccollum 1000Suite Anuj Zaldivar [place], [id number], [place] tel:[phone] CVR - [facility] Venous insufficiency (chronic) (peripheral)N evus, non-neoplasti c 4 Owen Cole. [address] [place] [address], [place], [place], [id number], [place]. tel:[phone] Referring Provider: Celestina Zimmerman MD S, [address] [place] [address], [place], [address]. tel:[phone] Office/Outpt E&M Established 15 Mins- [place] & [place] [facility], [address] [place] [address] Dr Mccollum 1000Suite 1000Anuj [place], [id number], [place] tel:[phone] CVR - [facility] Essential (primary) hypertensionV enous insufficiency (chronic) (peripheral)P ain in right lower legChronic venous hypertension (idiopathic) without complications of bilateral lower extremity 4 Sesar QUINTERO, SURESH, SUMEET Roper. [facility] [place] [address], [place], [place], [id number], [place]. tel:[phone] Referring Provider: Celestina Zimmerman MD S, [address] [place] [address], [place], [address]. tel:[phone] Office/Outpt E&M Established 15 Mins [facility], [address] [place] [address] Dr Mccollum 1000Suite 1000Anuj [place], [id number], [place] tel:[phone] [facility] - [place] Localized edemaVenous insufficiency (chronic) (peripheral)E ssential (primary) hypertension 4 Darrell Henao. [address] [facility] [address], [facility] [place], [place], [id number], [place]. tel:[phone] Referring Provider: Celestina Zimmerman MD S, [address] [place] [address], [place], [address]. tel:[phone] [facility], [address] [place] [address] [facility] 1000Suite 1000Anuj [place], [id number], [place] tel:[phone] [facility] - [facility] Chronic venous hypertension (idiopathic) with other complications of bilateral lower extremity 4 Sesar QUINTERO, JUVENTINOT, VI Judson. [address] [place] [address], [facility] [place], [place], [id number], [place]. tel:[phone] Referring Provider: Celestina Zimmerman MD S, [address] [place] [address], [place], [address]. tel:[phone] [facility], [address] [place] [address] [facility] 1000Suite 1000Anuj [place], [id number], [place] tel:[phone] CVR - [facility] Encounter for follow-up examination after completed treatment for conditions other than malignant nePain in left leg May- 3 Liam QUINTERO FACS RVT ASH Cha. [facility] [place] [address], [place], [address], [place]. tel:[phone] Referring Provider: Shad Wheeler MD FACS RVT RP, [address] [place] [address], [place], [address]. tel:[phone] [facility], [address] [place] [address] [address] 1000Anuj [place], [id number], [place] tel:[phone] CVR - [facility] Chronic venous hypertension (idiopathic) with inflammation of left lower extremity May- 3 Sesar QUINTERO RVT, RPVI Judson. [address] [place] [address], Suite [facility], [facility] [place] [place], [id number], [place]. tel:[phone] Referring Provider: Shad Wheeler MD FACS RVT RP, [facility] [facility] [address], [facility] [place], [address]. tel:[phone] [facility], [address] [place] [address] Dr [address], [place] Anuj, [id number], [place] tel:[phone] CVR - [place] Encounter for follow-up examination after completed treatment for conditions other than malignant nePain in right leg Sep-2 3 Liam QUINTERO FACS RVT [facility] Shad Cha. [facility] [facility], [address], [place], [address], [place]. tel:[phone] Referring Provider: Shad Wheeler MD FACS RVT [facility], [address] [place] [address] Suite [facility], [facility] [place], [address]. tel:[phone] [facility], [address] [place] [address] [address], [place] Anuj, [id number], [place] tel:[phone] CV[place] - [place] Chronic venous hypertension w inflammation of r low extrem Sep-2 3 Sesar QUINTERO, RVT, [facility] Judson. [address] [place] [address], Suite [facility], [place], [id number], [place]. tel:[phone] Referring Provider: Shad Wheeler MD FACS T [facility], [address] [place] [address] [address], [facility] [place], [address]. tel:[phone] Office/Outpt E&M Established 10 Mins - [facility], [address] [place] [address] [address], [place] Anuj, [id number], [place] tel:[phone] CV[place] - [place] Chronic venous htn w oth comp of bilateral low extrm Sep-1 3 Liam QUINTERO FACS RVT ASH Cha. [address] [place] [address], [address], [place], [address], [place]. tel:[phone] Referring Provider: Shad Wheeler MD FACS RVT [facility], [address] [place] [address] [address], [place], [address]. tel:[phone] [facility], [address] [place] [address] [address], [place] Anuj, [id number], [place] tel:[phone] CVR - [place] Pain in right legPain in left leg 3 Liam QUINTERO [facility] Shad Cha. [address] [facility], [address], [facility] [place], [address], [place]. tel:[phone] Referring Provider: Shad Wheeler MD [facility], [address] [place] [address] [address], [facility] [place], [address]. tel:[phone] Office/Oupt E&M New Pt 45 Mins [facility], [address] [place] [address] [address], [place]uj, [id number], [place] tel:[phone] CVR - [place] Chronic venous htn w oth comp of bilateral low extrmPain in right lower legPain in left lower legPain in right legRestless legs syndromeEssen tial (primary) hypertensionP ain in left legCramp and spasmLocalize d edema 3 Liam QUINTERO [facility] Shad Semaj. [address] [place] [address], Suite [facility], [facility] [place], [address], [place]. tel:[phone] Referring Provider: Shad Wheeler MD [facility], [address] [place] [address], [facility] [place], [address]. tel:[phone] Family History Family Member Type Diagnosis Age At Onset No Information Payers Payer name Insurance type Covered green party ID Authorsaraha tirosa(s) Medicare DANYELL VALADEZ [id number] [facility] DANYELL [id number] Social History Type Description Quantity Date Captured [...] (idiopathic) without complications of bilateral lower extremity Pre and post instruc tions reviewed and provided Related to Chronic venous hypertension (idiopathic) without complications of bilateral lower extremity Diet education [...] Related to Body mass index (BMI) 30.0-30.9, Lifestyle education Related to B kandi mass [...]
[2024-07-16] MEDS: methocarbamoL 750 MG TABLET PO (22:34)
[2024-07-16 22:43] VITALS: BP 144/72; PULSE 61; RESP 18; TEMP 36.3; O2SAT 95
[2024-07-16 22:50] VITALS: BP 144/72; PULSE 61; RESP 18; TEMP 36.3; O2SAT 95
== END 2024-07-16 22:51 | disposition home or self-care (01) ==
PROVIDERS: Emergency Provider Emergency Medicine; PCP Internal Medicine
DX: S39.012A Strain of muscle, fascia and tendon of lower back, initial encounter (principal); K59.00 Constipation, unspecified; X58.XXXA Exposure to other specified factors, initial encounter; Y93.9 Activity, unspecified; Y92.9 Unspecified place or not applicable; Y99.8 Other external cause status; Z79.899 Other long term (current) drug therapy
CPT/HCPCS: 72100; 99283; 99284

== ENCOUNTER 2024-08-22 11:24 | Outpatient (AMB) | payer MEDICARE, SELFPAY ==
[2024-08-22 11:30] VITALS: BP 110/58; PULSE 53; O2SAT 96; BMI 33.8
--- NOTE | 2024-08-22 11:30 | A.OFFVIS_ITS ---
Vital Signs 08/22/24 11:30 Height 5 ft 3 in Weight 190 lb 11.198 oz BMI 33.8 BP 110/58 L Blood Pressure Location Rt brachial Position Sitting Pulse 53 Pulse Source Pulse Oximeter Pulse Oximetry (%) 96 Oxygen Delivery Method Room Air Intake Visit Reasons: Obstructive sleep apnea Allergies gluten [GLUTEN] Allergy (Severe, Verified 08/22/24 11:36) ABD PAIN Sulfa (Sulfonamide Antibiotics) [SULFA(SULFONAMIDE ANTIBIOTICS)] Allergy (Severe, Verified 08/22/24 11:36) Rash mirtazapine Adverse Reaction (Severe, Verified 08/22/24 11:36) peripheral edema HPI Comments Details: The patient is a 73-year-old woman who was previously healthy until several years ago she was diagnosed with uterine cancer. After he started developing some shortness of breath. However cough for the last year her shortness of breath has gotten worse. Also complained of orthopnea where she could not sleep flat. She would have to sleep almost sitting up. Her shortness of breath became worse and further to the point that she was short of breath even at rest even while talking. She denied any chest pains or cough. Denies any exposures to any fumes or toxins or any farm exposures. Ultimately the patient did have a CT scan of the chest demonstrating areas of ground-glass opacities in addition to a dilated pulmonary trunk suggesting of some pulmonary hypertension. She denies any arthritic he is or rashes. Although, she does have a diagnosis of celiac disease. She denies coughing up any blood. She was referred to cardiology where she had an echocardiogram demonstrating grade 2 diastolic dysfunction without any evidence of pulmonary hypertension based on echo. Although, her pulmonary trunk is dilated and she does have lower extremity edema. She was referred to [place] for a right cardiac catheterization. In the meantime she was also referred to Pulmonary. She also underwent pulmonary function studies demonstrating moderate restriction with moderate to severe diffusion impairment. The patient did have a 6 minute walk test here in the office and she would desaturate down to about 92% but did not qualify for oxygen. She does have dayti me drowsiness and headaches in the morning. Her Odem score is elevated 12/24. She needs to have a sleep study done. Because of her cardiac history she will benefit from a diagnostic in lab PSG study. The patient has been on hormonal therapy. She did have a CTA but a month ago that was negative for any thromboembolic disease. However, need to consider chronic thromboembolic disease in this will be best done with V/Q scan. 04/17/2020 the patient is here for pulmonary follow-up visit. Overall she is feeling better. Her dyspnea on exertion has improved. She continues to have some daytime drowsiness. Odem score still elevated 12/24. She also has significant migraines. We did review her sleep study. She appears to have a significant REM related sleep disorder with a REM AHI of 42 and an average AHI above 7. The patient continues to be symptomatic and with the concerns of the pulmonary hypertension the patient will benefit from CPAP therapy. In the meantime she did have a right heart catheterization which is reassuring demonstrated normal hemodynamic profile and no evidence of any pulmonary hypertension. Explained to her that at rest does not appear to have pulmonary hypertension but does not rule out the possibility of pulmonary hypertension with activity so therefore treating her with CPAP it is very important. Also, also discussed ground-glass opacities that she had a previous CAT scan suggesting the possibility of pneumonitis. Therefore, will start her on a inhaled cortical steroid to see if we can provide her some relief and also start her on CPAP. Will reassess in 3 months. 05/26/2020 the patient is here for pulmonary follow-up visit. She started again developing the symptoms of dyspnea. Initially she was feeling better. Her symptoms can be pretty severe at times with significant shortness of breath. She did follow-up with her supervisor grips and the recommended coming back to Pulmonary to assess the abnormal CT scan findings. She had evidence of p neumonitis. The full workup was Negative. In addition to that we had placed on Flovent to try to decrease the inflammation that way and the patient could not tolerate the inhaler. I did mention the possibility of a trial of prednisone, but, the patient is reluctant because she cannot tolerate prednisone due to her severe adverse effects with mood changes. She is agreeable to a bronchoscopy to further assess the airways and also potential transbronchial biopsies. In the meantime based on her significant sudden symptoms suggesting bronchospasms I will request a methacholine challenge at this time. In the meantime the patient continues uses CPAP. The CPAP therapy continues to be affecting beneficial. We did download the machine and she is using more than 4 hours a night. Her average pressure is around 8 and her maximum pressure is around 14. her AHI is 4. at this time appears patient needs additional pressure. I increase the pressure up to 16. we will monitor her tolerance d uring the next visit. 07/01/2020 the patient is here for pulmonary follow-up visit. She recently was hospitalized with worsening respiratory symptoms. She was found to be hypoxic. She was tested for COVID which was negative. She did have a repeat CT scan of the chest demonstrating again significant ground-glass opacities primarily in the upper lung zones. She was going 1 dose of Solu-Medrol and her symptoms improved and she was able to be weaned off oxygen. She was then put on a Medrol pack and has been on 8 mg twice a day. Her respiratory symptoms are getting better. At this point is still not clear when she has did pneumonitis. Appears to be primarily in the upper lung zones suggesting of a hyper sensitivity pneumonitis picture versus is sarcoidosis. She will need a biopsy in order to make a differentiation. However, while on the Medrol biopsy the will resume in a lower yield. Therefore, will try to wean her off the Medrol in then repeat her CT scan. Which we can consider a bronchoscopy the patient has persistent symptoms were more findings on the CT scan. We also did talk about the lung biopsy which should be more a surgical biopsy. This wider better you would be with more risk. Therefore, we will start with a bronchoscopy. Additional bloodwork will also be requested. 08/21/2020 the patient has a telephone visit. Apparently she was in her usual state health until this morning when she noticed that she was more short of breath yavu-io-jzeegxip severity and also when she checked her pulse ox she was saturating 93%. She became concerned. Denies any exposure to anybody with COVID 19 infection. She denies any viral symptoms. She has no longer taking any prednisone. Recently also she had a dietary indiscretion which she had more salt intake. Therefore, she did take additional diuretic medicine. The patient have a chest x-ray today. She will take the additional diuretics over the weekend. If her symptoms are no better then we will reassess specially since she had the bouts of pneumonitis of unclear etiology. Ultimatel, if she does develop recurrent pneumonitis then potential diagnostic intervention will be warranted. 09/29/2020 the patient is here for pulmonary follow-up visit. Overall the patient is feeling like she is getting more short of breath. She has also noticed increased lower extremity edema and she has also gained weight. She feels like she has edema up to her thighs. She did follow-up with cardiology in her Lasix was increased to 80 mg. After the issues she will diuretic the patient has not noticed any significant improving her respiratory status. She did not undergo blood work demonstrating a normal brain atretic peptide. I did have her undergo further blood work today. It appears that her brain atretic peptide continues to be decreased to normal and also her renal function is also normal. Also had again a D-dimer which was negative. On examination she again has crackles right lung more than left. I am concerned that she is developing the pneumonitis again specially since she is off the cortical steroid therapy. She does have celiac disease but she follows a very strict gluten free diet suggesting that is unlikely for her to develop pulmonary involvement. I will request a new urgent CT scan of the chest with hopes of assessing the area of inflammation and then plan for bronchoscopy. We did talk about different options as far as diagnostic interventions. She is aware the bronchoscopy may not have the yield of a surgical intervention but will be lower risk given can also assess for infections and also assess for hemosiderin or diffuse alveolar hemorrhage. 10/28/2020 the patient is here for pulmonary follow-up visit. She is status post bronchoscopy. After the bronchoscopy she did feel better she fell likely lungs were opening up better. The bronchoscopy was pretty unremarkable. She did have some bronchomalacia noted. In addition to that her biopsies demonstrated chronic inflammation. This is suggestive of a chronic hypersensitivity pneumonitis. At this point is not clear which she could have inflammation to. However, will have to treated with inhaled cortical steroids. There is no evidence of bleeding to suggest celiac related vasculitis otherwise called Shane Johnson syndrome. In addition to that the patient has noticed increased lower extremity edema she has gained 3 lb in the last 24 hours. Currently her breathing feels good but if she develops any increasing shortness of breath or lower extremity edema she will take additional diuretics. 12/18/2020 the patient is here for pulmonary follow-up visit. Overall she is doing better. Several weeks ago she did develop some chest discomfort primarily on the left side. Therefore she went to the ER. There she had a CT scan of the chest PE protocol which was negative for any emboli. No evidence of any pneumonitis either which is reassuring. Her chest discomfort is overall better. It is definitely reproducible. She has been using her CPAP. The CPAP therapy has been affecting beneficial. She averages IX hours a night. In addition to that her average pressure is 12 cm. She does have an APAP set up 6- 16. At this point will leave her alone since is working well with an AHI of 1. From a respiratory status she has been doing better so therefore she is cutting down on the Asmanex HFA. 03/17/2021 the patient is here for a pulmonary follow-up visit. Overall she is feeling better. She did follow-up with ENT and was found to have some inflammation around the proximal esophagus and also the larynx. That could be contributing to her symptoms. She is not interested in having speech therapy at this time. We will look into it further later on. In the meantime ENT did recommend she follow-up with GI which she will be doing. She does complaint of a cough and congestion of her throat. She has been taking Benadryl and seems to be helping with the phlegm in the back of her throat. At this point will treat for chronic bronchitis with azithromycin 3 times a week with the hope that we can improve her promotility and decrease inflammation in that area. We also talked about budesonide, but, the patient is not interested in taking additional steroids at this time. She was evaluated by Allergy and was found to be allergic to mold and she will start allergy shots at this time. The patient has been using the Asmanex and she should continue using it. In the meantime will provide with albuterol for her nebulizer that she can use couple times a day as needed with the hope of improving her airway disease. Her CPAP continue to be effective and beneficial. 07/21/2021 the patient is here for a pulmonary follow-up visit. Overall she is doing well from a respiratory status. She has been able to decrease her respiratory medications. In the meantime she developed soreness of her mouth and tongue. She is not sure if is related to her celiac disease. She was check for Sjogren's disease about last year. She was negative. The patient is closely working with her dentist and I believe she is going to be referred for a biopsy if he continues to be significantly swollen. The patient also followed up in [place] and they are following him closely for heart failure with preserved EF. Although it is reassuring that echocardiogram is normal. Her last chest x- ray did demonstrate some perihilar congestion. She has not had any x-ray since the summer of 2020. Will plan to repeat the x-ray sometime in the fall 2021. She continues uses CPAP. The CPAP therapy continues to be affecting beneficial. She does use it for more than 4 hours a night. Otherwise the patient is doing well. 12/29/2021 the patient is here for a pulmonary follow-up visit. Overall she is doing well from a respiratory status. Denies any significant cough or shortness of breath. She recently was evaluated in [place] for her GI issues. Part of the workup included a CT scan of the chest that she had there. It was reported that she does have a 13 mm in left upper lobe mixed density. I did also review her CT scans that she has had here back in 2020 and reviewed them along with the patient. Does not appear to have anything in the left upper lobe. therefore, appears to be a new finding. I will request a CT scan from [facility] to be able to review the images myself. In the meantime explained to the patient based on the fact that is mixed, subsolid in nature then would benefit from getting repeat CT scan the next 3-6 months. The patient has had evidence of pneumonitis and interstitial changes on previous CT scans that have resolved. I am hopeful that this is a similar process. 05/05/2022 the patient is here for a pulmonary follow-up visit. Since we last spoke the patient had a bad fall, fracturing her pelvis in multiple locations. At the time she was at [facility]. She was transferred to a rehab. There she had minimal recovery. Now she is at home. She had been using a walker now she is walking on her own. Since he has been home she has noticed a worsening cough. The cough tends to be intermittently productive. Denies any hemoptysis. Also notices some minimal degree of shortness of breath but she is not sure if is all from the injury. She did recently have a CT scan of the chest that was personally by me. Has not been officially read yet. She appears to have some very they areas of ground-glass opacity that are patchy in nature bilaterally primarily in the upper lung zones. This appeared to be new when compared to her previous CT scan. In view of her symptoms will going to go ahead and start her inhaled cortical steroid to see if we can minimize inflammatory changes to her lungs at this time. Therefore she will start Flovent. I am hopeful that she continues to improve. To continue to receive therapy for her Healing fracture. The patient is otherwise without any other complaints. In the meantime she is using her CPAP. The CPAP therapy continues to be affecting beneficial. She does use it for more than 4 hours a night. She has been getting supplies. 11/08/2022 the patient is here for pulmonary follow-up visit. Patient overall has been doing better now. She had an issue with a passing of a family member having traveled to [place] multiple times and developing significant shortness of breath. She was taken to the ER at [facility] where she was briefly in the hospital for about 24 hours. Patient was diuresed she was also treated with nebulized therapy. She did feel better after the diuresis however. Her cardiac workup was unremarkable. She did have a CT scan of the chest that I did review with her demonstrating air trapping with mosaic pattern. Therefore explained to her the importance of using her rescue inhaler. She does get tremors however. Will provide her with Xopenex at this time. In the meantime she stop the Flovent because she was getting gingival disease and Juany infections therefore her dentist recommended she stop it. She is using her CPAP at nighttime. CPAP therapy continues to be affecting beneficial. We did download the data she does use it definitely more than 4 hours a night. Her AHI is down to 1.9. She does have issues with TMJ. She is getting a mouth guard. She was wondering about the hypoglossal nerve stimulator. I did advise her against it. 05/02/2023 the patient is here for a pulmonary follow-up visit. Overall the patient is doing very well from a respiratory status. She continues use her respiratory medications with good effect. She has not required any prednisone or any additional rescue medicine. She is been working on exercise and on lifestyle changes. We did review her last CT scan that was done back in September of 2022 demonstrating stable pulmonary nodules. She does have small subcentimeter nodules noted. At this point will hold off on serial CT scans. Will discuss additional testing during the next visit. The patient also continues use her CPAP every night. The CPAP therapy continues to be affecting beneficial. She does complaint of a dry mouth. We did increase the humidity. She does use the CPAP more than 4 hours a night. I did prescribe additional supplies to her [employer]. The patient otherwise is doing well so follow-up in a year's time. If she develops any worsening symptoms prior to this she will call for an earlier assessment. 08/22/2024 the patient is here for a pulmonary follow-up visit. Overall she is doing well. She has been tolerating the CPAP very well. CPAP therapy has been affecting beneficial. Her AHI is 3. she sometimes has some issues with her mask leaking. Most likely that causes her AHI to increased some. Her average pressure is around 8 cm and she tolerates the therapy for the whole night more than 4 hours which is reassuring. From a respiratory status she is doing better. Denies any significant shortness with activity. she does complaint of postnasal drip and nasal congestion. Therefore will start her on some nasal therapy for that. No imaging studies to review. Will plan to follow-up in a year's time. The patient develops any worsening symptoms she will call for an earlier assessment. [facility], [facility] Medical History (Updated 08/22/24 @ 19:44 by Jose L Ford MD) Chronic rhinitis Pulmonary nodule Pulmonary nodule Hearing loss Annual physical exam Dysphagia Vocal cord dysfunction Asthma-COPD overlap syndrome Weight gain Edema Urinary incontinence Asthma History of concussion Shortness of breath Lower extremity edema Dyspnea Hypoxemia requiring supplemental oxygen Nonspecific interstitial pneumonitis Peripheral neuropathy Psychiatric disorder Mammogram normal Hyperlipemia Pulmonary hypertension DANIS on CPAP Pneumonitis Orthostatic hypotension dysautonomic syndrome Hypothyroid HTN (hypertension) Celiac disease Diastolic CHF Surgical History Hx of esophagogastroduodenoscopy History of total abdominal hysterectomy and bilateral salpingo-oophorectomy Endometrial adenocarcinoma History of colonoscopy Family History Father [place] cell cancer HTN (hypertension) CVD (cardiovascular disease) Mother Crohn disease Cancer Maternal Grandfather No problems noted. Maternal Grandmother No problems noted. Paternal Grandfather CVD (cardiovascular disease) Paternal Grandmother COPD (chronic obstructive pulmonary disease) Brother No problems noted. Sister No problems noted. Daughter No problems noted. Social History Household Members: Spouse Housing: House Are you a primary date night caregiver to a significant other at home: No Do you presently have visiting nurse or other home services: No Alcohol intake: current Alcohol intake frequency: holidays/special occasions only Comment: pt resting Patient Tobacco Use Status: Former Tobacco user Tobacco use type: Cigarette Years Smoked: 2 e-Cigarette/Vaping Use: Never Used Second Hand Smoke Exposure: No service: No Current occupational status: retired Cognitive needs: No Hearing needs: Yes Vision needs: Yes Review of Systems Const Denies fatigue, Denies fever(s), Denies night sweats, Denies poor appetite and Denies weight loss Eyes Reports requires corrective lenses ENT Denies Normal hearing present, Denies dental pain, Denies dysphagia, Denies hearing loss, Reports nasal congestion, Reports nasal discharge, Denies odynophagia, Reports post nasal drip and Denies throat swelling Card Reports no additional complaints and Denies dyspnea on exertion Resp Reports cough, Denies dyspnea on exertion and Denies wheezing GI Denies abdominal pain, Denies melena, Denies bloating, Denies hematochezia, Denies constipation, Denies GI cramping, Denies dysphagia, Denies excessive flatus, Denies early satiety, Denies heartburn, Denies diarrhea, Denies nausea, Denies odynophagia, Denies vomiting and Denies hematemesis Musc Reports as per HPI and Reports arthralgias Skin/Breast Denies pruritus, Denies lesions, Denies rash and Denies jaundice Neuro Denies Normal hearing present and Denies Abnormal speech present Endo Denies fatigue Aller/Immun Denies throat swelling and Denies wheezing Physical Exam Vital Signs: Last Vital Signs Pulse 53 08/22/24 11:30 BP 110/58 L 08/22/24 11:30 Pulse Ox 96 08/22/24 11:30 Oxygen Delivery Method Room Air 08/22/24 11:30 BMI result Body Mass Index 33.8 Const General: alert Neck Neck: Yes normal visual inspection, Yes full ROM and Yes no lymphadenopathy Chest Chest palpation & inspection: normal inspection of the chest Resp Effort & Inspection: normal respiratory effort Auscultation: clear to auscultation bilaterally Cardio Rate: regular rate Rhythm: regular rhythm Heart sounds: S1 normal heart sound present and S2 normal heart sound present General: Yes no CVA tenderness Back/Spine/Pelvis Back: no CVA tenderness Skin General skin exam: no rashes or lesions noted Neuro Cranial nerves: No Normal hearing present Speech: No Abnormal speech present Extrem General: Yes no clubbing, cyanosis or edema Assessment & Plan Assessment & Plan (1) Asthma: Code(s): J45.909 - Unspecified asthma, uncomplicated Category: Medical Qualifiers: Asthma complication type: uncomplicated Asthma persistence: persistent Asthma severity: moderate Qualified Code(s): J45.40 - Moderate persistent asthma, uncomplicated (2) DANIS on CPAP: Code(s): G47.33 - Obstructive sleep apnea (adult) (pediatric); Z99.89 - Dependence on other enabling machines and devices Category: Medical (3) Pulmonary nodule: Comment: 09/2022 stable Code(s): R91.1 - Solitary pulmonary nodule Category: Medical (4) Chronic rhinitis: Code(s): J31.0 - Chronic rhinitis Category: Medical Plan JUWAN as needed, Xopenex Continue APAP Allergy therapy: claritin as needed start astelin and fluticasone nasal sprays F/U 12 months Medications: New azelastine administer into each nostril 2 sprays intranasal BID 30 mL 6RF 30 days fluticasone propionate 50 mcg/actuation 2 sprays intranasal DAILY 15.8 mL 11RF 30 days J31.0 - Chronic rhinitis Coding Level of Care Code Est Pt Level 4 (59850) Diagnoses Moderate persistent asthma without complication J45.40 Asthma complication type: uncomplicated Asthma persistence: persistent Asthma severity: moderate DANIS on CPAP G47.33; Z99.89 Pulmonary nodule R91.1 Chronic rhinitis J31.0 Time Spent (min) 16
--- OUTSIDE RECORDS SUMMARY | 2024-08-22 13:12 | XMS_ITS | Continuity of Care Document ---
Author Organization [facility] Address [address] [place] [id number] Phone Care Team Providers Care Voice Network Administrator Name Role Phone Sesar QUINTERO, RVT, RPVI, [...] Mins- [place] & [place] [facility], [address] [place] [address] Dr Mccollum [facility] [address], [id number], [place] tel:[phone] [facility] [place] Venous insufficiency (chronic) (peripheral)E ssential (primary) hypertension 4 Sesar QUINTERO, RVT, RPASH Roper. [address], [address], [place], [place], [id number], [place]. tel:[phone] Referring Provider: Celestina Zimmerman MD S, [address] [place] [address], [address]. tel:[phone] [facility], [address] [place] [address] Dr Mccollum [address], [place], [id number], [place] tel:[phone] CVR [facility] Chronic venous hypertension (idiopathic) with other complications of right lower extremity Oct-2 4 Sesar QUINTERO RVT, RPVI Robert. [address] [place] [address], Suite [facility], [place], [id number], [place]. tel:[phone] Referring Provider: Celestina Zimmerman MD S, [address] [place] [address], [place], [address]. tel:[phone] [facility], [address] [place] [address] Dr Mccollum [address]SuAnuj weathers [place], [id number], [place] tel:[phone] [place] Encounter for follow-up examination after completed treatment for conditions other than malignant nePain in right leg Sep-2 4 Sesar QUINTERO RVT, RPVI Robert. [address] [place] [address], Suite [facility], [place], [id number], [place]. tel:[phone] Referring Provider: Celestina Zimmerman MD S, [address] [place] [address], [place], [address]. tel:[phone] [facility], [address] [place] [address] Dr Mccollum 1000Suite Anuj Zaldivar [place], [id number], [place] tel:[phone] CVR - [facility] Varicose veins of right lower extremity with other complications Sep-2 4 Sesar QUINTERO RVT, RPVI Robert. [address] [place] [address], Suite [facility], [place], [id number], [place]. tel:[phone] Referring Provider: Celestina Zimmerman MD S, [address] [place] [address], [place], [address]. tel:[phone] Office/Outpt E&M Established 15 Mins- [place] & [place] [facility], [address] [place] [address] Dr Mccollum [address]SuAnuj weathers [place], [id number], [place] tel:[phone] CVR - [facility] Chronic venous hypertension (idiopathic) without complications of bilateral lower extremity Sep-1 4 Sesar QUINTERO RVT, RPVI Robert. [address] [place] [address], [address], [place], [id number], [place]. tel:[phone] Referring Provider: Celestina Zimmerman MD S, [address] [place] [address], [place], [address]. tel:[phone] [facility], [address] [place] [address] Dr Mccollum 1000Suite 1000Anuj [place], [id number], [place] tel:[phone] [place] Encounter for follow-up examination after completed treatment for conditions other than malignant nePain in right leg 4 Sesar QUINTERO RVT, SUMEET Roper. [address] [place] [address], [place] [address], [facility] [place] [id number], [place]. tel:[phone] Referring Provider: Celestina Zimmerman MD S, [address] [place] [address], [address]. tel:[phone] [facility], [address] [place] [address] [facility] [address] [address]An[place], [id number], [place] tel:[phone] CVR - [place] [facility] Encounter for follow-up examination after completed treatment for conditions other than malignant nePain in right lower leg 4 Sesar QUINTERO RVT, SUMEET Roper. [address] [place] [address], [place] [address], [place], [id number], [place]. tel:[phone] Referring Provider: Celestina Zimmerman MD S, [address] [place] [address], [address]. tel:[phone] [facility], [address] [place] [address] Dr Mccollmu 1000Suite 1000Anuj [place], [id number], [place] tel:[phone] CVR - [place] [facility] Encounter for follow-up examination after completed treatment for conditions other than malignant neChronic venous hypertension (idiopathic) with other complications of right lower extremity 4 Sesar QUINTERO RVT, SUMEET Roper. [address] [place] [address], Suite [facility], [place], [id number], [place]. tel:[phone] Referring Provider: Celestina Zimmerman MD S, [address] [place], [place] [address], [place], [address]. tel:[phone] [facility], [address] [place] [address] Dr Mccollum 1000SuAnuj weathers [place], [id number], [place] tel:[phone] [place] Chronic venous hypertension (idiopathic) with inflammation of right lower extremity 0 4 Owen Cole. [address], [address], [facility] [place], [id number], [place]. tel:[phone] Referring Provider: Celestina Zimmerman MD S, [address] [place] [address], [place], [address]. tel:[phone] [facility] MD [facility], [address] [place] [address] Dr Mccollum 1000SuAnuj weathers MD, [id number], [place] tel:[phone] [place] Varicose veins of right lower extremity with other complications 4 Sesar QUINTERO RVT, SUMEET Roper. [address], [place] [address], [facility] [place] [place], [id number], [place]. tel:[phone] Referring Provider: Celestina Zimmerman MD S, [address] [place] [address], [place], [address]. tel:[phone] Office/Outpt E&M Established 25 Mins- [place] & [place] [facility], [address] [place] [address] Dr Mccollum 1000SuAnuj weathers MD, [id number], [place] tel:[phone] [place] Chronic venous hypertension (idiopathic) with other complications of bilateral lower extremity 4 Sesar QUINTERO RVT, RPVI Robert. [address], [address], [facility] [place] [place], [id number], [place]. tel:[phone] Referring Provider: Celestina Zimmerman MD S, [address] [place] [address], [place], [address]. tel:[phone] [facility] MD [facility], [address] [place] [address] Dr Mccollum 1000SuAnuj weathers [place], [id number], [place] tel:[phone] CVR - [facility] Chronic venous hypertension (idiopathic) with other complications of bilateral lower extremity 4 Sesar QUINTERO RVT, RPVI Robert. [address] [place] [address], [place], [place], [id number], [place]. tel:[phone] Referring Provider: Celestina Zimmerman MD S, [address] [place] [address], [place], [address]. tel:[phone] [facility], [address] [place] [address] Dr Mccollum 1000Suite Anuj Zaldivar [place], [id number], [place] tel:[phone] CVR - [facility] Venous insufficiency (chronic) (peripheral)N evus, non-neoplasti c 4 Owen Cole. [address] [place] [address], [place], [place], [id number], [place]. tel:[phone] Referring Provider: Celestina Zimmerman MD S, [address] [place] [address], [place], [address]. tel:[phone] Office/Outpt E&M Established 15 Mins- [place] & [place] [facility], [address] [place] [address] Dr Mccollum 1000Suite 1000Anuj [place], [id number], [place] tel:[phone] CVR - [facility] Essential (primary) hypertensionV enous insufficiency (chronic) (peripheral)P ain in right lower legChronic venous hypertension (idiopathic) without complications of bilateral lower extremity 4 Sesar QUINTERO, SURESH, SUMEET Roper. [facility] [place] [address], [place], [place], [id number], [place]. tel:[phone] Referring Provider: Celestina Zimmerman MD S, [address] [place] [address], [place], [address]. tel:[phone] Office/Outpt E&M Established 15 Mins [facility], [address] [place] [address] Dr Mccollum 1000Suite 1000Anuj [place], [id number], [place] tel:[phone] [place] Localized edemaVenous insufficiency (chronic) (peripheral)E ssential (primary) hypertension 4 Darrell Henao. [address] [address] [facility] [address], [facility] [place], [id number], [place]. tel:[phone] Referring Provider: Celestina Zimmerman MD S, [address] [place] [address], [place], [address]. tel:[phone] [facility], [address] [place] [address] [facility] 1000Suite 1000Anuj [place], [id number], [place] tel:[phone] [facility] Chronic venous hypertension (idiopathic) with other complications of bilateral lower extremity 4 Sesar QUINTERO, JUVENTINOT, VI Judson. [address] [place] [address], [facility] [place], [id number], [place]. tel:[phone] Referring Provider: Celestina Zimmerman MD S, [address] [place] [address], [place], [address]. tel:[phone] [facility], [address] [place] [address] [facility] 1000Suite 1000Anuj [place], [id number], [place] tel:[phone] CVR - [facility] Encounter for follow-up examination after completed treatment for conditions other than malignant nePain in left leg May- 3 Liam QUINTERO FACS RVT ASH Cha. [facility] [place] [address], [place], [address], [place]. tel:[phone] Referring Provider: Shad Wheeler MD FACS RVT RP, [address] [place] [address], [place], [address]. tel:[phone] [facility], [address] [place] [address] [address] 1000Anuj MD, [id number], [place] tel:[phone] CVR - [facility] Chronic venous hypertension (idiopathic) with inflammation of left lower extremity May- 3 Sesar QUINTERO RVT, RPVI Judson. [address] [place] [address], Suite [facility], [facility] [place] [place], [id number], [place]. tel:[phone] Referring Provider: Shad Wheeler MD FACS RVT RP, [facility], [place], [address]. tel:[phone] [facility], [address] [place] [address] Dr [address], [place], [id number], [place] tel:[phone] CV[place] - [place] Encounter for follow-up examination after completed treatment for conditions other than malignant nePain in right leg Sep-2 3 Liam QUINTERO FACS RVT [facility] Shad Cha. [facility], [address], [place], [address], [place]. tel:[phone] Referring Provider: Shad Wheeler MD FACS RVT [facility], [address] [place] [address] Suite [facility], [place], [address]. tel:[phone] [facility], [address] [place] [address] [address], [place], [id number], [place] tel:[phone] [place] Chronic venous hypertension w inflammation of r low extrem Sep-2 3 Sesar QUINTERO, RVT, [facility] Judson. [address] [place] [address], Suite [facility], [place], [id number], [place]. tel:[phone] Referring Provider: Shad Wheeler MD FACS T [facility], [address] [place] [address] [address], [facility] [place], [address]. tel:[phone] Office/Outpt E&M Established 10 Mins - [facility], [address] [place] [address] [address], MD [place], [id number], [place] tel:[phone] [place] Chronic venous htn w oth comp of bilateral low extrm Sep-1 3 Liam QUINTERO FACS RVT ASH Cha. [address] [place] [address], [address], [place], [address], [place]. tel:[phone] Referring Provider: Shad Wheeler MD FACS RVT [facility], [address] [place] [address] [address], [place], [address]. tel:[phone] [facility], [address] [place] [address] [address], [place], [id number], [place] tel:[phone] [place] Pain in right legPain in left leg 3 Liam QUINTERO [facility] Shad Cha. [address], [address], [facility] [place], [address], [place]. tel:[phone] Referring Provider: Shad Wheeler MD [facility], [address] [place] [address] [address], [facility] [place], [address]. tel:[phone] Office/Oupt E&M New Pt 45 Mins [facility], [address] [place] [address] [address], [place], [id number], [place] tel:[phone] [place] Chronic venous htn w oth comp of bilateral low extrmPain in right lower legPain in left lower legPain in right legRestless legs syndromeEssen tial (primary) hypertensionP ain in left legCramp and spasmLocalize d edema 3 Liam QUINTERO [facility] Shad Semaj. [address] [place] [address], Suite [facility], [facility] [place], [address], [place]. tel:[phone] Referring Provider: Shad Wheeler MD [facility], [address] [place] [address], [facility] [place], [address]. tel:[phone] Family History Family Member Type Diagnosis Age At Onset No Information Payers Payer name Insurance type Covered alliance party ID Authorsaraha tirosa(s) Medicare DANYELL VALADEZ [id number] [facility] DANYELL [id number] Social History Type Description Quantity Date Captured [...]
--- OUTSIDE RECORDS SUMMARY | 2024-08-22 13:12 | XMS_ITS ---
Author Organization [facility] on Address Unknown Allergies, Adverse Reactions, Alerts Substance Reaction Status Noted Date Resolved Date Sulfa Antibiotics active 02/14/2022 Gluten active 02/14/2022 Problems Problem Status Start Date End Date UNSPECIFIED FRACTURE OF RIGH T PUBIS, SUBSEQUENT ENCOUNTER FOR FRACTURE WITH ROUTINE HEALING (Primary) (S32.501D - ICD-10-CM) ACTIVE 02/14/2022 UNSPECIFIED FRACTURE OF SACR UM, SUBSEQUENT ENCOUNTER FOR FRACTURE WITH ROUTINE HEALING (S32.10XD - ICD-10-CM) ACTIVE 022 CHRONIC OBSTRUCTIVE PULMONAR Y DISEASE, UNSPECIFIED (J44.9 - ICD-10-CM) ACTIVE 02/14/2022 ATHEROSCLEROTIC HEART DISEAS E OF [place] CORONARY ARTERY WITHOUT ANGINA PECTORIS (I25.10 - ICD-10-CM) ACTIVE 02/14/2022 POST-TRAUMATIC STRESS DISORD ER, UNSPECIFIED (F43.10 - ICD-10-CM) ACTIVE 02/14/2022 HYPOTHYROIDISM, UNSPECIFIED (E03.9 - ICD-10-CM) ACTIVE 02/14/2022 ESSENTIAL (PRIMARY) HYPERTENSION (I10 - ICD-10-CM) ACT YOSVANY 02/14/2022 ANXIETY DISORDER, UNSPECIFIED (F41.9 - ICD-10-CM) ACTI VE 02/14/2022 RETENTION OF URINE, UNSPECIFIED (R33.9 - ICD-10-CM) AC TIVE 02/14/2022 IRRITABLE BOWEL SYNDROME, UNSPECIFIED (K58.9 - ICD-10- CM) ACTIVE 02/14/2022 URINARY TRACT INFECTION, SIT E NOT SPECIFIED (N39.0 - ICD-10-CM) ACTIVE 03/07/2022 Encounters Encounter Performer Performer Role Encounter Diagnoses Location Date Discharge - Discharged to home or self care - Other [facility] 02/14/2022 04:06 pm EDT - 03/09/2022 10:51 am EDT Immunizations Vaccine Date SARS-COV-2 (COVID-19) 11/04/2020 12:00 a m EDT SARS-COV-2 (COVID-19) 10/16/2020 12:00 a m EDT SARS-COV-2 (COVID-19 BOOSTER) 11/27/2021 12:00 am EDT SARS-COV-2 (COVID-19 BOOSTER) 05/22/2021 12:00 am EDT Social History
== END 2024-08-22 12:08 | disposition home or self-care (01) ==
PROVIDERS: PCP Internal Medicine; Visit Provider Hospitalist
DX: J45.40 Moderate persistent asthma, uncomplicated (principal); G47.33 Obstructive sleep apnea (adult) (pediatric); Z99.89 Dependence on other enabling machines and devices; R91.1 Solitary pulmonary nodule; J31.0 Chronic rhinitis
CPT/HCPCS: 99214

== ENCOUNTER → 2024-08-22 11:24 | Outpatient (BNVA) | payer MEDICARE, SELFPAY | PROVIDERS: PCP Internal Medicine; Visit Provider Hospitalist | DX: J45.40 Moderate persistent asthma, uncomplicated (principal); G47.33 Obstructive sleep apnea (adult) (pediatric); R91.1 Solitary pulmonary nodule; J31.0 Chronic rhinitis; Z99.89 Dependence on other enabling machines and devices | CPT/HCPCS: 99212 ==

== ENCOUNTER 2024-08-24 10:43 | Outpatient (AMB) | payer MEDICARE, SELFPAY ==
--- NOTE | 2024-08-24 10:53 | MHC.OFFVIS ---
Vital Signs 08/24/24 10:54 Height 5 ft 3 in Weight 190 lb BMI 33.7 BP 122/57 L Blood Pressure Location Lt brachial Position Sitting Pulse 64 Intake Visit Reasons: stomach pain trouble swallowing Intake Note: Patient follow up for stomach pain trouble swallowing. Patient cc: dry mouth with daily swallowing problems with solid and liquid, between diarrhea and constipation and occasional GERD. 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: No Accompanied by: Self / Same As Patient Allergies gluten [GLUTEN] Allergy (Severe, Verified 08/24/24 10:52) ABD PAIN Sulfa (Sulfonamide Antibiotics) [SULFA(SULFONAMIDE ANTIBIOTICS)] Allergy (Severe, Verified 08/24/24 10:52) Rash mirtazapine Adverse Reaction (Severe, Verified 08/24/24 10:52) peripheral edema HPI HPI stomach pain trouble swallowing: Details: 73 yr old f called for f/u RECAP: 1/ Dysphagia and celiac disease: TESTS: she had EGD at [facility] with nml biopsies, EMS with high IRP, otherwise nml per paperwork, EGD 04/2021-- nml duodenal bx, nml esophgeal bx, hyperplastic/fundic polyp removed Ba swallow 01/2021-- severe esophageal dysmotility, prolonged stasis, no gerd, swallowing mechanism GES--nml 2/Abn LFT:Was placed on urosdiol and still taking, LFT have been nml TESTS: US 08/2022-- cholelithiasis noted rept LFT 10/22/22- normal and also on 06/2023 neg celiac, neg LKM, neg LINDA LFT: 05/2024- normal 3/ Abdominal pain- random and intermittent -occasionally, suprapubic area, improves with rest and lasts < 5 min INTERIM: she was unable to take calcium supps as made her constipated she has more erratic bowel habits now, mild cramps in lower abdomen she has dry mouth and taking lemon which helps, uses humdififer, and CPAP she has noted worsening co rodination and unsteadiness on her feet she has discomfort in her lower back EXAM: GENERAL: The patient is well developed and nontoxic. VITAL SIGNS:see workflow HEENT: Nonicteric sclerae, PERRLA, EOMI. Oropharynx clear. Moist mucous membranes. Conjunctivae appear well perfused. No thyroid mass. CHEST: Chest wall is nontender. HEART: Regular rate and rhythm without murmurs. LUNGS: Clear to auscultation bilaterally. ABDOMEN: Soft, positive bowel sounds, nontender, no organomegaly.no flank tenderness SKIN: No rash, no excessive bruising, petechiae, or purpura. NEUROLOGIC: Cranial nerves II-XII intact without motor/sensory deficit. v difficult for her to do tandem walking, falling to the right side Psych: normal affect exaggerated lumbar lordosis, tender lower back A/P: MRI brain due to poor co ordination check vitamins egd and colo, with dilation refer PT [facility] Medical History (Updated 08/24/24 @ 11:58 by Mandi Shields MD) Chronic rhinitis Pulmonary nodule Pulmonary nodule Hearing loss Annual physical exam Dysphagia Vocal cord dysfunction Asthma-COPD overlap syndrome Weight gain Edema Urinary incontinence Asthma History of concussion Shortness of breath Lower extremity edema Dyspnea Hypoxemia requiring supplemental oxygen Nonspecific interstitial pneumonitis Peripheral neuropathy Psychiatric disorder Mammogram normal Hyperlipemia Pulmonary hypertension DANIS on CPAP Pneumonitis Orthostatic hypotension dysautonomic syndrome Hypothyroid HTN (hypertension) Celiac disease Diastolic CHF Surgical History Hx of esophagogastroduodenoscopy History of total abdominal hysterectomy and bilateral salpingo-oophorectomy Endometrial adenocarcinoma History of colonoscopy Family History Father Savita cell cancer HTN (hypertension) CVD (cardiovascular disease) Mother Crohn disease Cancer Maternal Grandfather No problems noted. Maternal Grandmother No problems noted. Paternal Grandfather CVD (cardiovascular disease) Paternal Grandmother COPD (chronic obstructive pulmonary disease) Brother No problems noted. Sister No problems noted. Daughter No problems noted. Social History Household Members: Spouse Housing: House Are you a primary child care group leader to a significant other at home: No Do you presently have visiting nurse or other home services: No Alcohol intake: current Alcohol intake frequency: holidays/special occasions only Comment: pt resting Patient Tobacco Use Status: Former Tobacco user Tobacco use type: Cigarette Years Smoked: 2 e-Cigarette/Vaping Use: Never Used Second Hand Smoke Exposure: No service: No Current occupational status: retired Cognitive needs: No Hearing needs: Yes Vision needs: Yes Physical Exam Vital Signs: Last Vital Signs Pulse 64 01/24/25 10:54 BP 122/57 L 08/24/24 10:54 BMI result Body Mass Index 33.7 Assessment & Plan Assessment & Plan (1) Postural instability: Code(s): R29.3 - Abnormal posture Category: Medical Plan: as above (2) Back pain: Code(s): M54.9 - Dorsalgia, unspecified Category: Medical Plan: as above (3) 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, unspecified Category: Medical Plan: as above Orders: Orders PT Evaluation and Treatment 08/24/24 M54.9 - Dorsalgia, unspecified, R29.3 - Abnormal posture MR head/brain w con 08/24/24 G11.9 - Hereditary ataxia, unspecified, R27.8 - Other lack of coordination Vitamin B5 (Pantothenic Acid) 08/24/24 G11.9 - Hereditary ataxia, unspecified Creatine Kinase Total 08/24/24 G11.9 - Hereditary ataxia, unspecified Magnesium 08/24/24 G11.9 - Hereditary ataxia, unspecified TSH reflex Free T4 08/24/24 G11.9 - Hereditary ataxia, unspecified Phosphorus 08/24/24 E83.52 - Hypercalcemia, G11.9 - Hereditary ataxia, unspecified Vitamin A 08/24/24 G11.9 - Hereditary ataxia, unspecified Vitamin B1 08/24/24 G11.9 - Hereditary ataxia, unspecified Vitamin B12 and Folate 08/24/24 G11.9 - Hereditary ataxia, unspecified Vitamin B3 (Niacin) 08/24/24 G11.9 - Hereditary ataxia, unspecified Vitamin B6 08/24/24 G11.9 - Hereditary ataxia, unspecified Vitamin D 25-OH Total 08/24/24 G11.9 - Hereditary ataxia, unspecified Complete Blood Count Auto Diff 08/24/24 G11.9 - Hereditary ataxia, unspecified Comprehensive Met. 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
[2024-08-24 10:54] VITALS: BP 122/57; PULSE 64; BMI 33.7
--- OUTSIDE RECORDS SUMMARY | 2024-08-24 12:17 | XMS_ITS ---
Author Organization [facility] Address [address] [place] [address] Care Team Providers Care Live In Caregiver Name Role Phone Celestina Zimmerman MD Primary Care Provider Alba Mir Unavailable [phone] Allergies Allergen (clinical drug ingredient) Drug/Non Drug Allergy documented on EMR Reaction Allergy Type Onset Date Status Substance with sulfonamide structure and antibacterial mechanism of action (substance) Sulfa Antibiotics Unknown Drug Allergy Active REASON FOR VISIT Pcp- 08/24, Painful nail(s) aggrevated by shoes causing difficulty standing/walking Medications Medication SIG (Take, Route, Frequency, Duration) Notes Start Date End Date Status Fluconazole 100 MG TAKE 1 TABLET BY CHAY TH ONCE DAILY Oral for 5 Not-Taking Nystatin 096296 UNIT/ML Mouth/Throat for 10 Not-Taking Clopidogrel Bisulfate 75 MG TAKE 1 TABLET BY MOUTH ONCE DAILY Oral for 90 Not-Takin g Lidocaine Viscous HCl 2 % Mouth/Throat for 3 Not-Taking Dicyclomine HCl 20 MG TAKE 1 TABLET BY M OUTH 4 TIMES DAILY Oral for 30 Unknown SUMAtriptan Succinate 100 MG TAKE 1 TABLET BY MOUTH EVERY 2 HOURS NEEDED FOR MIGRAINE, NOT TO EXCEED 200MG PER DAY Oral for 23 Not-Taking Atorvastatin Calcium 10 MG TAKE 1 TABLET BY MOUTH ONCE DAILY Oral for 90 Not-Takin g Mupirocin 2 % APPLY OINTMENT DAILY TO BIOPSY SITE ON RIGHT THIGH AND COVER WITH A BANDAID UNTIL HEALED External for 30 Not-Takin g Estradiol 0.1 MG/24HR APPLY 1 PATCH TOPICALLY ON MONDAYS AND THURSDAYS Transdermal for 28 Not-Taking Ketoconazole 2 % APPLY CREAM TO FEET TWICE DAILY FOR 3 WEEKS, REPEAT NEEDED External for 30 Not-Takin g Sertraline HCl 100 MG TAKE 2 TABLETS BY MOUTH ONCE DAILY Oral for 90 Active Furosemide 40 MG TAKE 2 TABLETS BY MOUTH ONCE DAILY Oral for 90 Active hydrALAZINE HCl 25 MG TAKE 1 TABLET BY M OUTH IN THE MORNING AND 3 TABLETS AT 6PM Oral for 90 Active Fluconazole 100 MG 1 tablet Orally sebas y for 5 days 01/15/2023 Active Doxycycline Monohydrate 100 MG 1 capsule Orally Once a day for 10 days 01/06/2023 Not-Taking LORazepam 1 MG Oral for 90 Act madeleine amLODIPine Besylate 10 MG Oral for 90 Active Labetalol HCl 100 MG TAKE 1 TABLET BY MO UTH TWICE DAILY Oral for 90 Active Levothyroxine Sodium 75 MCG TAKE 1 TABLET BY MOUTH ONCE DAILY Oral for 90 Active Gabapentin 600 MG TAKE 1 TABLET BY CHAY TH 4 TIMES DAILY Oral for 90 Active oxyBUTYnin Chloride 5 MG Oral for 90 Active traZODone HCl 50 MG TAKE 1 TABLET BY CHAY TH AT BEDTIME Oral for 90 Active Spironolactone 25 MG TAKE 2 TABLETS (50 MG) BY MOUTH DAILY Oral for 90 Active busPIRone HCl 15 MG TAKE 1 TABLET BY CHAY TH AT BEDTIME FOR 2 WEEKS AND THEN TAKE 1 TABLET TWICE DAILY Oral for 37 Active Omeprazole 40 MG Oral for 90 A ctive Albuterol Sulfate (2.5 MG/3ML) 0.083% 3 ml as needed Inhalation every 6 hrs Active Montelukast Sodium 10 MG Oral for 90 Active Social History Tobacco Use: Social History Observation Description Date Details (start date - stop date) Never Smoker NA - NA Tobacco Use/Smoking Question Answer Notes Are you a: nonsmoker Additional Findings: Tobacco Non-User Current no n-smoker Alcohol Screen Question Answer Notes Did you have a drink containing alcohol in the p ast year? No Points 0 Interpretation Negative Tobacco use other than smoking: Question Answer Notes Are you an other tobacco user? No Vital Signs Height 5ft 5in in 11/15/2023 Weight 168 lbs 11/15/2023 BMI 27.95 kg/m2 11/15/2023 Blood pressure systolic 120 mm Hg 11/15/19 24 Blood pressure diastolic 50 mm Hg 024 Encounters Encounter Location Date Provider Diagnosis [facility] [place] [address] [place] [address] 11/15/2023 Alba Perica Tinea unguium B35.1 ; Pain in left foot M79.672 and Pain in right toe(s) M79.674 Assessments Encounter Date Diagnosis (ICD Code) Assessment Notes Treatment Notes Treatment Clinical Notes Section Notes 11/15/2023 Tinea unguium (ICD-10 - B35.1) 11/15/2023 Pain in left foot (ICD-10 - M79.672) 11/15/2023 Pain in right toe(s) (ICD-10 - M79.674) Plan Of Treatment Next Appt Details Follow Up: prn, Reason: Provider Name:Alba Henry Mackenzie henry, 09/28/2024 10:00:00 AM, [address] [place] [address], [id number], Procedure Notes * Category Sub-Category Detail Notes Debride Nails 1-5 Procedure: Nail debrideme nt performed extensively to reduce/remove overall nail length and girth, subungual debris, and necrotic tissue, by manual and electrical means with use of a nail nipper and/or dremel, to more viable healthy nail plate or bed tissue 1-5. Silver nitrate used for any petechial bleeding as necessary. Patient chooses, no pharmaceutical tx ([id number]) Progress Notes * Sana DE JESUS ADOB:1950 (73 yo F)Acc No.[id number]:11/15/2023 Progress Note Patient:?Sana De Jesus Provider:?Alba Caal DPM :1950???Age:73 Y???Sex:Female D ate:11/15/2023 Address:[place] [address], [id number] Pcp:Celestina Zimmerman MD Subjective: * Chief Complaints: * ???Pcp- 08/24Painful nail(s) aggrevated by shoes causing difficulty standing/walking * HPI: ???Painful Nails:?Pt States Last PCP Visit:?Date:?08/24/2023 * ROS:?General/Constitutional:?Nausea?denies, denies.?Vomiting?denies, denies.?Hunger Thirst?denies, denies.?Loss appetite?denies, denies.?Chills?denies, denies.?Fatigue?denies, denies.?Fever?denies, denies.?Night Sweats denies, denies.?Unexplained weight loss?denies, denies.?Unexplained weight gain?denies, denies.?HEENTM:?Dentures?denies, denies.?Dizziness?denies, denies.?Glasses/contacts?admits, admits.?Retinopathy?denies, denies.?Blurred/double vision?denies, denies.?TMJ?denies, denies.?Discharge/drainage?denies, denies.?Implants?denies, denies.?Sore throat?denies, denies.?Dental implants?denies, denies.?Hard of hearing ?denies, denies.?Difficulty chewing/swallowing/speaking?denies, denies.?Nose bleeds?denies, denies.?Sore mouth?denies, denies.?Respiratory:?On Oxygen?denies, denies.?Pneumonia/pleurisy?denies, denies.?Bronchitis?denies, denies.?Emphysema?denies, denies.?Coughing?denies, denies.?Cough blood?denies, denies.?Shortness of breath?denies, denies.?Wheezing?denies, denies.?Cardiovascular:?Pacemaker?denies, denies.?MVP?denies, denies.?WPW?denies, denies.?CHF?denies, denies.?Heart attack?denies, denies.?Septal defect?denies, denies.?Rapid beat?denies, denies.?Chest pain ?denies, denies.?Atrial Fib.?denies, denies.?Murmur/Palpitations?denies, denies.?Gastrointestinal:?Hemorrhoids?denies, denies.?Stomach/Abdominal pain?denies, denies.?Dark blood stool?denies, denies.?Irritable bowel ?denies, denies.?Constipation?denies, denies.?Diarrhea?denies, denies.?Hematology:?Swelling?denies, denies.?Clots?denies, denies.?Varicose Veins?denies, denies.?Bruising?denies, denies.?Bleeding problem?denies, denies.?Genitourinary:?Blood urine?denies, denies.?Frequent/Painfu/urination/bladder control?denies, denies.?Kidney stones?denies, denies.?Infection (UTI)?denies, denies.?Nephropathy?denies, denies.?sex trans dis (STD)?denies, denies.?Prostate?denies, denies.?Musculoskeletal:?Hammertoes?denies, denies.?Bunions?denies, denies.?Back Pain?denies, denies.?Muscle Cramps/ Resting?denies, denies.?Muscle cramps / walking?denies, denies.?Generalized aches and pains?admits, denies.?Weakness?denies, denies.?Integ.:?Owen?denies, denies.?Scars?denies, denies.?Corns/calluses?admits, admits.?Ingrown nails?denies, denies.?Painful nails?denies,admits.?Open Sores?denies, denies.?Rashes?denies, denies.?Neurologic:?Difficulty sleeping?denies, denies.?Brain disorder?denies, denies.?Numbness?denies, denies.?Balance trouble?denies, denies.?Confusion?denies, denies.?Fainting/blackouts?denies, denies.?Tingling?denies, denies.?Tremors?denies, denies.? * Medical History:? * Surgical History:?hysterecto my * Hospitalization/Major Diagno stic Procedure:[place] [place], respiratory issues 09/2022 * Family History:?Mother: dece ased.?Father: , kidney/liver disease, poor circulation, high blood pressure, heart attack.? * Social History:?Tobacco Use:?Tobacco Use/Smoking?Are you a:?nonsmoker ?Additional Findings: Tobacco Non-User?Current non-smoker ?Tobacco use other than smoking?Are you an other tobacco user??No ???Drugs/Alcohol:?Drugs?Have you used drugs other than those for medical reasons in the past 12 months??No ?Alcohol Screen?Did you have a drink containing alcohol in the past year??No ?Points?0 ?Interpretation?Negative ???Miscellaneous:?Caffeine: yes, 1-2 cups per day. ?Children: yes. ?Exercise: yes, walking, [employer], balance class. ?Marital status: . 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 * Medications:?TakingAlbuterol Sulfate (2.5 MG/3ML) 0.083% Nebulization Solution 3 ml as needed Inhalation every 6 hrsMontelukast Sodium 10 MG Tablet Oral oxyBUTYnin Chloride 5 MG Tablet Oral traZODone HCl 50 MG Tablet TAKE 1 TABLET BY MOUTH AT BEDTIME Oral busPIRone HCl 15 MG Tablet TAKE 1 TABLET BY MOUTH AT BEDTIME FOR 2 WEEKS AND THEN TAKE 1 TABLET TWICE DAILY Oral Omeprazole 40 MG Capsule Delayed Release Oral Spironolactone 25 MG Tablet TAKE 2 TABLETS (50 MG) BY MOUTH DAILY Oral Gabapentin 600 MG Tablet TAKE 1 TABLET BY MOUTH 4 TIMES DAILY Oral Labetalol HCl 100 MG Tablet TAKE 1 TABLET BY MOUTH TWICE DAILY Oral Levothyroxine Sodium 75 MCG Tablet TAKE 1 TABLET BY MOUTH ONCE DAILY Oral amLODIPine Besylate 10 MG Tablet Oral LORazepam 1 MG Tablet Oral hydrALAZINE HCl 25 MG Tablet TAKE 1 TABLET BY MOUTH IN THE MORNING AND 3 TABLETS AT 6PM Oral Sertraline HCl 100 MG Tablet TAKE 2 TABLETS BY MOUTH ONCE DAILY Oral Furosemide 40 MG Tablet TAKE 2 TABLETS BY MOUTH ONCE DAILY Oral Fluconazole 100 MG Tablet 1 tablet Orally dailyTaking Albuterol Sulfate (2.5 MG/3ML) 0.083% Nebulization Solution 3 ml as needed Inhalation every 6 hrsTaking Montelukast Sodium 10 MG Tablet Oral Taking oxyBUTYnin Chloride 5 MG Tablet Oral Taking traZODone HCl 50 MG Tablet TAKE 1 TABLET BY MOUTH AT BEDTIME Oral Taking busPIRone HCl 15 MG Tablet TAKE 1 TABLET BY MOUTH AT BEDTIME FOR 2 WEEKS AND THEN TAKE 1 TABLET TWICE DAILY Oral Taking Omeprazole 40 MG Capsule Delayed Release Oral Taking Spironolactone 25 MG Tablet TAKE 2 TABLETS (50 MG) BY MOUTH DAILY Oral Taking Gabapentin 600 MG Tablet TAKE 1 TABLET BY MOUTH 4 TIMES DAILY Oral Taking Labetalol HCl 100 MG Tablet TAKE 1 TABLET BY MOUTH TWICE DAILY Oral Taking Levothyroxine Sodium 75 MCG Tablet TAKE 1 TABLET BY MOUTH ONCE DAILY Oral Taking amLODIPine Besylate 10 MG Tablet Oral Taking LORazepam 1 MG Tablet Oral Taking hydrALAZINE HCl 25 MG Tablet TAKE 1 TABLET BY MOUTH IN THE MORNING AND 3 TABLETS AT 6PM Oral Taking Sertraline HCl 100 MG Tablet TAKE 2 TABLETS BY MOUTH ONCE DAILY Oral Taking Furosemide 40 MG Tablet TAKE 2 TABLETS BY MOUTH ONCE DAILY Oral Taking Fluconazole 100 MG Tablet 1 tablet Orally dailyNot- Taking/PRNDoxycycline Monohydrate 100 MG Capsule 1 capsule Orally Once a dayEstradiol 0.1 MG/24HR Patch Twice Weekly APPLY 1 PATCH TOPICALLY ON MONDAYS AND THURSDAYS Transdermal Ketoconazole 2 % Cream APPLY CREAM TO FEET TWICE DAILY FOR 3 WEEKS, REPEAT NEEDED External Mupirocin 2 % Ointment APPLY OINTMENT DAILY TO BIOPSY SITE ON RIGHT THIGH AND COVER WITH A BANDAID UNTIL HEALED External SUMAtriptan Succinate 100 MG Tablet TAKE 1 TABLET BY MOUTH EVERY 2 HOURS NEEDED FOR MIGRAINE, NOT TO EXCEED 200MG PER DAY Oral Atorvastatin Calcium 10 MG Tablet TAKE 1 TABLET BY MOUTH ONCE DAILY Oral Clopidogrel Bisulfate 75 MG Tablet TAKE 1 TABLET BY MOUTH ONCE DAILY Oral Lidocaine Viscous HCl 2 % Solution Mouth/Throat Fluconazole 100 MG Tablet TAKE 1 TABLET BY MOUTH ONCE DAILY Oral Nystatin 078828 UNIT/ML Suspension Mouth/Throat Not- Taking/PRN Doxycycline Monohydrate 100 MG Capsule 1 capsule Orally Once a dayNot-Taking/PRN Estradiol 0.1 MG/24HR Patch Twice Weekly APPLY 1 PATCH TOPICALLY ON MONDAYS AND THURSDAYS Transdermal Not-Taking/PRN Ketoconazole 2 % Cream APPLY CREAM TO FEET TWICE DAILY FOR 3 WEEKS, REPEAT NEEDED External Not-Taking/PRN Mupirocin 2 % Ointment APPLY OINTMENT DAILY TO BIOPSY SITE ON RIGHT THIGH AND COVER WITH A BANDAID UNTIL HEALED External Not-Taking/PRN SUMAtriptan Succinate 100 MG Tablet TAKE 1 TABLET BY MOUTH EVERY 2 HOURS NEEDED FOR MIGRAINE, NOT TO EXCEED 200MG PER DAY Oral Not-Taking/PRN Atorvastatin Calcium 10 MG Tablet TAKE 1 TABLET BY MOUTH ONCE DAILY Oral Not-Taking/PRN Clopidogrel Bisulfate 75 MG Tablet TAKE 1 TABLET BY MOUTH ONCE DAILY Oral Not-Taking/PRN Lidocaine Viscous HCl 2 % Solution Mouth/Throat Not-Taking/PRN Fluconazole 100 MG Tablet TAKE 1 TABLET BY MOUTH ONCE DAILY Oral Not-Taking/PRN Nystatin 065414 UNIT/ML Suspension Mouth/Throat UnknownDicyclomine HCl 20 MG Tablet TAKE 1 TABLET BY MOUTH 4 TIMES DAILY Oral Medication List reviewed and reconciled with the patientUnknown Dicyclomine HCl 20 MG Tablet TAKE 1 TABLET BY MOUTH 4 TIMES DAILY Oral Medication List reviewed and reconciled with the patient * Allergies:?Sulfa Antibiotics yes[Allergies Verified] Objective: * Vitals:?Ht: 5ft 5in, Wt:168, BMI:27.95, Shoe size:8.5-9, BP:120/50 mm Hg. * Examination: ???Nails: ?NAILS are:?Elongated, overgrown, dystrophic, lytic, greater than 3mm thick, discolored and friable with crumbly malodorous subungual debris, with pain on palpation , TA , T5.? Assessment: * Assessment: 1.?Tinea unguium - B35.1 (Pr imary)?2.?Pain in left foot - M79.672?3.?Pain in right toe(s) - M79.674? Plan: * Treatment: * Procedures:?Debride Nails 1-5:?Procedure:?Nail debridement performed extensively to reduce/remove overall nail length and girth, subungual debris, and necrotic tissue, by manual and electrical means with use of a nail nipper and/or dremel, to more viable healthy nail plate or bed tissue 1-5. Silver nitrate used for any petechial bleeding as necessary. Patient chooses, no pharmaceutical tx ([id number]).? * Procedure Codes:?53719 QUE BECKI NAIL, 1-5 * Follow Up:?prn * Images: * Sign off status: Completed true * Provider:?Alba Caal, TRACY Date:? Generated for Yamil carlton/Luc/Jonnathan on:?08/24/2024 12:16 PM EST History and Physical Notes * HPI (History of Present Illness) Category Sub-Category Detail Notes Category Not es Painful Nails Pt States Last PCP Visit: Date:: 08/24/2023 Examination Category Sub-Category Detail Notes Category Not es Nails NAILS are: Elongated, overg rown, dystrophic, lytic, greater than 3mm thick, discolored and friable with crumbly malodorous subungual debris, with pain on palpation , TA , T5
--- OUTSIDE RECORDS SUMMARY | 2024-08-24 12:17 | XMS_ITS | Continuity of Care Document ---
Author Organization [facility] Address [address] [place] [address] Phone Care Team Providers Care Sample Taker Operator Name Role Phone Sesar QUINTERO, RVT, RPVI, [...] Mins- [place] & [place] [facility], [address] [place] [address] Dr Mccollum [address] 1000[place]uj [place], [id number], [place] tel:[phone] [facility] [place] Venous insufficiency (chronic) (peripheral)E ssential (primary) hypertension 4 Sesar QUINTERO, RVT, RPASH Roper. [address] [facility], [address], [place], [place], [id number], [place]. tel:[phone] Referring Provider: Celestina Zimmerman MD S, [address] [place] [address], [address]. tel:[phone] [facility], [address] [place] [address] Dr Mccollum 1000[address], [place] Anuj, [id number], [place] tel:[phone] CVR [facility] Chronic venous hypertension (idiopathic) with other complications of right lower extremity Oct-2 4 Sesar QUINTERO RVT, RPVI Robert. [address] [place] [address], Suite [facility], [place], [id number], [place]. tel:[phone] Referring Provider: Celestina Zimmerman MD S, [address] [place] [address], [place], [address]. tel:[phone] [facility], [address] [place] [address] Dr Mccollum 1000SuAnuj weathers [place], [id number], [place] tel:[phone] [facility] - [place] [facility] [place] Encounter for follow-up examination after completed treatment for conditions other than malignant nePain in right leg Sep-2 4 Sesar QUINTERO RVT, RPVI Robert. [address] [place] [address], Suite [facility], [place], [id number], [place]. tel:[phone] Referring Provider: Celestina Zimmerman MD S, [address] [place] [address], [place], [address]. tel:[phone] [facility], [address] [place] [address] Dr Mccollum 1000Suite Anuj Zaldivar [place], [id number], [place] tel:[phone] CVR - [facility] Varicose veins of right lower extremity with other complications Sep-2 4 Sesar QUINTERO RVT, RPVI Robert. [address] [place] [address], Suite [facility], [place], [id number], [place]. tel:[phone] Referring Provider: Celestina Zimmerman MD S, [address] [place] [address], [place], [address]. tel:[phone] Office/Outpt E&M Established 15 Mins- [place] & [place] [facility], [address] [place] [address] Dr Mccollum 1000SuAnuj weathers [place], [id number], [place] tel:[phone] CVR - [facility] Chronic venous hypertension (idiopathic) without complications of bilateral lower extremity Sep-1 4 Sesar QUINTERO RVT, RPVI Robert. [address] [place] [address], [address], [place], [id number], [place]. tel:[phone] Referring Provider: Celestina Zimmerman MD S, [address] [place] [address], [place], [address]. tel:[phone] [facility], [address] [place] [address] Dr Mccollum 1000Suite 1000Anuj [place], [id number], [place] tel:[phone] [facility] [place] Encounter for follow-up examination after completed treatment for conditions other than malignant nePain in right leg 4 Sesar QUINTREO RVT, SUMEET Roper. [address] [place] [address], [place] [address], [facility] [place], [id number], [place]. tel:[phone] Referring Provider: Celestina Zimmerman MD S, [address] [place] [address], [address]. tel:[phone] [facility], [address] [place] [address] [facility] [place] [address]An[place], [id number], [place] tel:[phone] CVR - [place] [facility] Encounter for follow-up examination after completed treatment for conditions other than malignant nePain in right lower leg 4 Sesar QUINTERO RVT, SUMEET Roper. [address] [place] [address], [place] [address], [place], [id number], [place]. tel:[phone] Referring Provider: Celestina Zimmerman MD S, [address] [place] [address], [address]. tel:[phone] [facility], [address] [place] [address] Dr Mccollum 1000Suite 1000Anuj [place], [id number], [place] tel:[phone] CV[facility] - [place] [facility] Encounter for follow-up examination after completed treatment for conditions other than malignant neChronic venous hypertension (idiopathic) with other complications of right lower extremity 4 Sesar QUINTERO RVT, SUMEET Roper. [address] [place] [address], Suite [facility], [place], [id number], [place]. tel:[phone] Referring Provider: Celestina Zimmerman MD S, [address] [place], [place] [address], [place], [address]. tel:[phone] [facility], [address] [place] [address] Dr Mccollum 1000SuAnuj weathers [place], [id number], [place] tel:[phone] [facility] Chronic venous hypertension (idiopathic) with inflammation of right lower extremity 0 4 Owen Cole. [address] [facility], [address], [facility] [place], [id number], [place]. tel:[phone] Referring Provider: Celestina Zimmerman MD S, [address] [place] [address], [place], [address]. tel:[phone] [facility] MD [facility], [address] [place] [address] Dr Mccollum 1000SuAnuj weathers MD, [id number], [place] tel:[phone] [facility] [facility] [place] Varicose veins of right lower extremity with other complications 4 Sesar QUINTERO RVT, SUMEET Roper. [address] [facility], [place] [address], [facility] [place] [place], [id number], [place]. tel:[phone] Referring Provider: Celestina Zimmerman MD S, [address] [place] [address], [place], [address]. tel:[phone] Office/Outpt E&M Established 25 Mins- [place] & [place] [facility], [address] [place] [address] Dr Mccollum 1000SuAnuj weathers [place], [id number], [place] tel:[phone] [facility] [facility] [place] Chronic venous hypertension (idiopathic) with other complications of bilateral lower extremity 4 Sesar QUINTERO RVT, RPVI Robert. [address] [facility], [address], [facility] [place], [id number], [place]. tel:[phone] Referring Provider: Celestina Zimmerman MD S, [address] [place] [address], [place], [address]. tel:[phone] [facility] MD [facility], [address] [place] [address] Dr Mccollum 1000SuAnuj weathers [place], [id number], [place] tel:[phone] CVR - [facility] Chronic venous hypertension (idiopathic) with other complications of bilateral lower extremity 4 Sesar QUINTERO RVT, RPVI Robert. [address] [place] [address], [place], [place], [id number], [place]. tel:[phone] Referring Provider: Celestina Zimmerman MD S, [address] [place] [address], [place], [address]. tel:[phone] [facility], [address] [place] [address] Dr Mccollum 1000Suite Anuj Zaldivar [place], [id number], [place] tel:[phone] CVR - [facility] Venous insufficiency (chronic) (peripheral)N evus, non-neoplasti c 4 Owen Cole. [address] [place] [address], [place], [place], [id number], [place]. tel:[phone] Referring Provider: Celestina Zimmerman MD S, [address] [place] [address], [place], [address]. tel:[phone] Office/Outpt E&M Established 15 Mins- [place] & [place] [facility], [address] [place] [address] Dr Mccollum 1000Suite 1000nAuj MD, [id number], [place] tel:[phone] CVR - [facility] Essential (primary) hypertensionV enous insufficiency (chronic) (peripheral)P ain in right lower legChronic venous hypertension (idiopathic) without complications of bilateral lower extremity 4 Sesar QUINTERO, SURESH, SUMEET Roper. [facility] [place] [address], [place], [place], [id number], [place]. tel:[phone] Referring Provider: Celestina Zimmerman MD S, [address] [place] [address], [place], [address]. tel:[phone] Office/Outpt E&M Established 15 Mins [facility], [address] [place] [address] Dr Mccollum 1000Suite 1000Anju [place], [id number], [place] tel:[phone] [facility] Localized edemaVenous insufficiency (chronic) (peripheral)E ssential (primary) hypertension 4 Darrell Henao. [address] [facility] [address], [facility] [place], [id number], [place]. tel:[phone] Referring Provider: Celestina Zimmerman MD S, [address] [place] [address], [place], [address]. tel:[phone] [facility], [address] [place] [address] [facility] 1000[address] 1000Anuj [place], [id number], [place] tel:[phone] [facility] - [facility] Chronic venous hypertension (idiopathic) with other complications of bilateral lower extremity 4 Sesar QUINTERO, JUVENTINOT, VI Judson. [address] [place] [address], [facility] [place], [id number], [place]. tel:[phone] Referring Provider: Celestina Zimmerman MD S, [address] [place] [address], [place], [address]. tel:[phone] [facility], [address] [place] [address] [facility] 1000[address] 1000Anuj [place], [id number], [place] tel:[phone] CVR - [facility] Encounter for follow-up examination after completed treatment for conditions other than malignant nePain in left leg May- 3 Liam QUINTERO FACS RVT ASH Cha. [facility] [place] [address], [place], [address], [place]. tel:[phone] Referring Provider: Shad Wheeler MD FACS RVT RP, [address] [place] [address], [place], [address]. tel:[phone] [facility], [address] [place] [address] [address] 1000Anuj [place], [id number], [place] tel:[phone] CVR - [facility] Chronic venous hypertension (idiopathic) with inflammation of left lower extremity May- 3 Sesar QUINTERO RVT, RPVI Judson. [address] [place] [address], Suite [facility], [facility] [place], [id number], [place]. tel:[phone] Referring Provider: Shad Wheeler MD FACS RVT RP, [facility] [address], [facility] [place], [address]. tel:[phone] [facility], [address] [place] [address] Dr [address], [place] Anuj, [id number], [place] tel:[phone] CVR - [place] Encounter for follow-up examination after completed treatment for conditions other than malignant nePain in right leg Sep-2 3 Liam QUINTERO FACS RVT [facility] Shad Cha. [facility], [address], [place], [address], [place]. tel:[phone] Referring Provider: Shad Wheeler MD FACS RVT [facility], [address] [place] [address] Suite [facility], [facility] [place], [address]. tel:[phone] [facility], [address] [place] [address] [address], [place] Anuj, [id number], [place] tel:[phone] [facility] Chronic venous hypertension w inflammation of r low extrem Sep-2 3 Sesar QUINTERO, RVT, [facility] Judson. [address] [place] [address], Suite [facility], [place], [id number], [place]. tel:[phone] Referring Provider: Shad Wheeler MD FACS T [facility], [address] [place] [address] [address], [facility] [place], [address]. tel:[phone] Office/Outpt E&M Established 10 Mins - [facility], [address] [place] [address] [address], [place] Anuj, [id number], [place] tel:[phone] [facility] Chronic venous htn w oth comp of bilateral low extrm Sep-1 3 Liam QUINTERO FACS RVT ASH Cha. [address] [place] [address], [address], [place], [address], [place]. tel:[phone] Referring Provider: Shad Wheeler MD FACS RVT [facility], [address] [place] [address] [address], [place], [address]. tel:[phone] [facility], [address] [place] [address] [address], [place], [id number], [place] tel:[phone] [facility] - [place] Pain in right legPain in left leg 3 Liam QUINTERO [facility] Shad Cha. [address] [facility], [address], [facility] [place], [address], [place]. tel:[phone] Referring Provider: Shad Wheeler MD [facility], [address] [place] [address] [address], [facility] [place], [address]. tel:[phone] Office/Oupt E&M New Pt 45 Mins [facility], [address] [place] [address] [address], [place]uj, [id number], [place] tel:[phone] [facility] - [place] Chronic venous htn w oth comp of bilateral low extrmPain in right lower legPain in left lower legPain in right legRestless legs syndromeEssen tial (primary) hypertensionP ain in left legCramp and spasmLocalize d edema 3 Liam QUINTERO [facility] Shad Semaj. [address] [place] [address], Suite [facility], [facility] [place], [address], [place]. tel:[phone] Referring Provider: Shad Wheeler MD [facility], [address] [place] [address], [facility] [place], [address]. tel:[phone] Family History Family Member Type Diagnosis Age At Onset No Information Payers Payer name Insurance type Covered green party ID Authorsaraha tirosa(s) Medicare DANYELL VALADEZ [id number] [facility] DANYELL [id number] Social History Type Description Quantity Date Captured [...]
--- OUTSIDE RECORDS SUMMARY | 2024-08-24 12:17 | XMS_ITS ---
Author Organization [facility] Address [address] [facility] [place] [address] Care Team Providers Care Wireless Field Technician Name Role Phone Celestina Zimmerman MD Primary Care Provider Alba Mir Unavailable [phone] Allergies Allergen (clinical drug ingredient) Drug/Non Drug Allergy documented on EMR Reaction Allergy Type Onset Date Status Substance with sulfonamide structure and antibacterial mechanism of action (substance) Sulfa Antibiotics Unknown Drug Allergy Active REASON FOR VISIT PCP - 03/2023, Painful nail(s) aggrevated by shoes causing difficulty standing/walking Medications Medication SIG (Take, Route, Frequency, Duration) Notes Start Date End Date Status traZODone HCl 50 MG TAKE 1 TABLET BY CHAY TH AT BEDTIME Oral for 90 Active busPIRone HCl 15 MG TAKE 1 TABLET BY CHAY TH AT BEDTIME FOR 2 WEEKS AND THEN TAKE 1 TABLET TWICE DAILY Oral for 37 Active Omeprazole 40 MG Oral for 90 A ctive Spironolactone 25 MG TAKE 2 TABLETS (50 MG) BY MOUTH DAILY Oral for 90 Active Gabapentin 600 MG TAKE 1 TABLET BY CHAY TH 4 TIMES DAILY Oral for 90 Active Montelukast Sodium 10 MG Oral for 90 Active oxyBUTYnin Chloride 5 MG Oral for 90 Active Nystatin 037218 UNIT/ML Mouth/Throat for 10 Not-Taking Dicyclomine HCl 20 MG TAKE 1 TABLET BY M OUTH 4 TIMES DAILY Oral for 30 Unknown Albuterol Sulfate (2.5 MG/3ML) 0.083% 3 ml as needed Inhalation every 6 hrs Active Lidocaine Viscous HCl 2 % Mouth/Throat for 3 Not-Taking Fluconazole 100 MG TAKE 1 TABLET BY CHAY TH ONCE DAILY Oral for 5 Not-Taking SUMAtriptan Succinate 100 MG TAKE 1 TABLET BY MOUTH EVERY 2 HOURS NEEDED FOR MIGRAINE, NOT TO EXCEED 200MG PER DAY Oral for 23 Not-Taking Atorvastatin Calcium 10 MG TAKE 1 TABLET BY MOUTH ONCE DAILY Oral for 90 Not-Takin g Clopidogrel Bisulfate 75 MG TAKE 1 TABLET BY MOUTH ONCE DAILY Oral for 90 Not-Takin g Fluconazole 100 MG 1 tablet Orally sebas y for 5 days 01/15/2023 Active Doxycycline Monohydrate 100 MG 1 capsule Orally Once a day for 10 days 01/06/2023 Not-Taking Estradiol 0.1 MG/24HR APPLY 1 PATCH TOPICALLY ON MONDAYS AND THURSDAYS Transdermal for 28 Not-Taking Ketoconazole 2 % APPLY CREAM TO FEET TWICE DAILY FOR 3 WEEKS, REPEAT NEEDED External for 30 Not-Takin g Mupirocin 2 % APPLY OINTMENT DAILY TO BIOPSY SITE ON RIGHT THIGH AND COVER WITH A BANDAID UNTIL HEALED External for 30 Not-Takin g hydrALAZINE HCl 25 MG TAKE 1 TABLET BY M OUTH IN THE MORNING AND 3 TABLETS AT 6PM Oral for 90 Active Sertraline HCl 100 MG TAKE 2 TABLETS BY MOUTH ONCE DAILY Oral for 90 Active Furosemide 40 MG TAKE 2 TABLETS BY MOUTH ONCE DAILY Oral for 90 Active amLODIPine Besylate 10 MG Oral for 90 Active LORazepam 1 MG Oral for 90 Act madeleine Labetalol HCl 100 MG TAKE 1 TABLET BY MO UTH TWICE DAILY Oral for 90 Active Levothyroxine Sodium 75 MCG TAKE 1 TABLET BY MOUTH ONCE DAILY Oral for 90 Active Social History Tobacco [...] No Vital Signs Height 5ft 5in in 04/08/2023 Weight 172 lbs 04/08/2023 BMI 28.62 kg/m2 04/08/2023 Blood pressure systolic 120 mm Hg 04/08/20 23 Blood pressure diastolic 60 mm Hg 023 Encounters Encounter Location Date Provider Diagnosis [facility] [place] [address] [place] [address] 04/08/2023 Alba Perica Tinea unguium B35.1 ; Pain in left foot M79.672 and Pain in right toe(s) M79.674 Assessments Encounter Date Diagnosis (ICD Code) Assessment Notes Treatment Notes Treatment Clinical Notes Section Notes 04/08/2023 Tinea unguium (ICD-10 - B35.1) 04/08/2023 Pain in left foot (ICD-10 - M79.672) 04/08/2023 Pain in right toe(s) (ICD-10 - M79.674) Plan Of Treatment Next Appt Details Follow Up: prn, Reason: Provider Name:Alba Nash Mackenzie henry, 09/28/2024 10:00:00 AM, [address] [place] [address], [id number], Procedure Notes * Category Sub-Category Detail Notes [...] as necessary. Patient chooses, no pharmaceutical tx (83759) Progress Notes * JAMIL Sana ADOB:1950 (72 yo F)Acc No.[id number]:04/08/2023 Progress Note Patient:?Sana De Jesus Provider:?Alba Caal DPM :1950???Age:72 Y???Sex:Female D ate:04/08/2023 Address:[place] [address], [phone] Pcp:Celestina Zimmerman MD Subjective: * Chief Complaints: * ???PCP - ainful nail (s) aggrevated by shoes causing difficulty standing/walking * HPI: ???Painful Nails:?Pt States Last PCP Visit:?Date:?03/15/2023 * ROS:?General/Constitutional:?Nausea?denies.?Vomiting?denies.?Hunger Thirst?denies.?Loss appetite?denies.?Chills?denies.?Fatigue?denies.?Fever?denies.?Night Sweats?denies.?Unexplained weight loss?denies.?Unexplained weight gain?denies.?HEENTM:?Dentures?denies.?Dizziness?denies.?Glasses/contacts?admits.?Retinopathy?de nies.?Blurred/double vision?denies.?TMJ?denies.?Discharge/drainage?denies.?Implants?denies.?Sore throat?denies.?Dental implants?denies.?Hard of hearing ?denies.?Difficulty chewing/swallowing/speaking?denies.?Nose bleeds?denies.?Sore mouth?denies.?Respiratory:?On Oxygen?denies.?Pneumonia/pleurisy?denies.?Bronchitis?denies.?Emphysema?denies.?C oughing?denies.?Cough blood?denies.?Shortness of breath?denies.?Wheezing?denies.?Cardiovascular:?Pacemaker?denies.?MVP?denies.?WPW?denies.?CHF?denies.?Heart attack?denies.?Septal defect?denies.?Rapid beat?denies.?Chest pain ?denies.?Atrial Fib.?denies.?Murmur/Palpitations?denies.?Gastrointestinal:?Hemorrhoids?denies.?Stomach/Abdominal pain?denies.?Dark blood stool?denies.?Irritable bowel ?denies.?Constipation?denies.?Diarrhea?denies.?Hematology:?Swelling?denies.?Clots?denies.?Varicose Veins?denies.?Bruising?denies.?Bleeding problem?denies.?Genitourinary:?Blood urine?denies.?Frequent/Painfu/urination/bladder control?denies.?Kidney stones?denies.?Infection (UTI)?denies.?Nephropathy?denies.?sex trans dis (STD)?denies.?Prostate?denies.?Musculoskeletal:?Hammertoes?denies.?Bunions?denies.?Back Pain?denies.?Muscle Cramps/ Resting?denies.?Muscle cramps / walking?denies.?Generalized aches and pains?denies.?Weakness?denies.?Integ.:?Owen?denies.?Scars?denies.?Corns/calluses?admits.?Ingrown nails?denies.?Painful nails?admits.?Open Sores?denies.?Rashes?denies.?Neurologic:?Difficulty sleeping?denies.?Brain disorder?denies.?Numbness?denies.?Balance trouble?denies.?Confusion?denies.?Fainting/blackouts?denies.?Tingling?denies.?Tr emors?denies.? * Medical History:? * Surgical History:?hysterecto my * Hospitalization/Major Diagno stic Procedure:?[facility] [place], respiratory issues 09/2022 * Family History:?Mother: [...] ?Interpretation?Negative ???Miscellaneous:?Caffeine: yes, 1-2 cups per day. ?Exercise: yes, walking, ymca, balance class. ?Marital [...] TABLET BY MOUTH ONCE DAILY Oral Nystatin 426414 UNIT/ML Suspension Mouth/Throat Not- Taking/PRN Doxycycline Monohydrate [...] BY MOUTH ONCE DAILY Oral Not-Taking/PRN Nystatin 680179 UNIT/ML Suspension Mouth/Throat UnknownDicyclomine HCl 20 MG Tablet TAKE 1 TABLET BY MOUTH 4 TIMES DAILY Oral Medication List reviewed and reconciled with the patientUnknown Dicyclomine HCl 20 MG Tablet TAKE 1 TABLET BY MOUTH 4 TIMES DAILY Oral Medication List reviewed and reconciled with the patient * Allergies:?Sulfa Antibiotics yes[Allergies Verified] Objective: * Vitals:?Ht: 5ft 5in, Wt:172, BMI:28.62, Shoe size: 8.5-9, BP:120/60 mm Hg, Ht- cm: 165.1 cm, Wt-k.02 kg. * Examination: ???Nails: ?NAILS are:?Elongated, overgrown, dystrophic, [...] as necessary. Patient chooses, no pharmaceutical tx (42064).? * Procedure Codes:?50847 QUE CHEATHAM, 1-5 * Follow Up:?prn * Images: * Sign off status: Completed true * Provider:?Alba Caal DPM Date:?03/2023 Generated for Yamil carlton/Luc/Jonnathan on:?08/24/2024 12:17 PM EST History and Physical Notes * HPI (History of Present Illness) Category Sub-Category Detail Notes Category Not es Painful Nails Pt States Last PCP Visit: Date:: 03/15/2023 Examination Category Sub-Category Detail Notes Category Not es Nails NAILS are: Elongated, overg rown, dystrophic, lytic, greater than 3mm thick, discolored and friable with crumbly malodorous subungual debris, with pain on palpation , TA , T5
--- OUTSIDE RECORDS SUMMARY | 2024-08-24 12:17 | XMS_ITS | Patient Health Record ---
Author Organization [facility] gabriel [place] Address [address] [facility] [place] [address] Care Team Providers Care Broadcast Operations Director Name Role Phone Celestina Zimmerman MD Primary Care Provider Alba Mir Unavailable [phone] Allergies Allergen (clinical drug ingredient) Drug/Non Drug Allergy documented on EMR Reaction Allergy Type Onset Date Status Substance with sulfonamide structure and antibacterial mechanism of action (substance) Sulfa Antibiotics Unknown Drug Allergy Active Reason For Referral No Information Medications Medication SIG (Take, Route, Frequency, Duration) Notes Start Date End Date Status Sertraline HCl 100 MG TAKE 2 TABLETS BY MOUTH ONCE DAILY Oral for 90 Active Furosemide 40 MG TAKE 2 TABLETS BY MOUTH ONCE DAILY Oral for 90 Active LORazepam 1 MG Oral for 90 Act madeleine hydrALAZINE HCl 25 MG TAKE 1 TABLET BY M OUTH IN THE MORNING AND 3 TABLETS AT 6PM Oral for 90 Active amLODIPine Besylate 10 MG Oral for 90 Active Mupirocin 2 % APPLY OINTMENT DAILY TO BIOPSY SITE ON RIGHT THIGH AND COVER WITH A BANDAID UNTIL HEALED External for 30 Not-Takin g Estradiol 0.1 MG/24HR APPLY 1 PATCH TOPICALLY ON MONDAYS AND THURSDAYS Transdermal for 28 Not-Taking Ketoconazole 2 % APPLY CREAM TO FEET TWICE DAILY FOR 3 WEEKS, REPEAT NEEDED External for 30 Not-Takin g Fluconazole 100 MG 1 tablet Orally sebas y for 5 days 01/15/2023 Active Doxycycline Monohydrate 100 MG 1 capsule Orally Once a day for 10 days 01/06/2023 Not-Taking oxyBUTYnin Chloride 5 MG Oral for 90 Active Fluconazole 100 MG TAKE 1 TABLET BY CHAY ONCE DAILY Oral for 5 Not-Taking traZODone HCl 50 MG TAKE 1 TABLET BY CHAY TH AT BEDTIME Oral for 90 Active Nystatin 025263 UNIT/ML Mouth/Throat for 10 Not-Taking Albuterol Sulfate (2.5 MG/3ML) 0.083% 3 ml as needed Inhalation every 6 hrs Active Clopidogrel Bisulfate 75 MG TAKE 1 TABLET BY MOUTH ONCE DAILY Oral for 90 Not-Takin g Montelukast Sodium 10 MG Oral for 90 Active Lidocaine Viscous HCl 2 % Mouth/Throat for 3 Not-Taking SUMAtriptan Succinate 100 MG TAKE 1 TABLET BY MOUTH EVERY 2 HOURS NEEDED FOR MIGRAINE, NOT TO EXCEED 200MG PER DAY Oral for 23 Not-Taking Atorvastatin Calcium 10 MG TAKE 1 TABLET BY MOUTH ONCE DAILY Oral for 90 Not-Takin g Labetalol HCl 100 MG TAKE 1 TABLET BY MO RIH TWICE DAILY Oral for 90 Active Levothyroxine Sodium 75 MCG TAKE 1 TABLET BY MOUTH ONCE DAILY Oral for 90 Active Spironolactone 25 MG TAKE 2 TABLETS (50 MG) BY MOUTH DAILY Oral for 90 Active Gabapentin 600 MG TAKE 1 TABLET BY CHAY TH 4 TIMES DAILY Oral for 90 Active busPIRone HCl 15 MG TAKE 1 TABLET BY CHAY TH AT BEDTIME FOR 2 WEEKS AND THEN TAKE 1 TABLET TWICE DAILY Oral for 37 Active Dicyclomine HCl 20 MG TAKE 1 TABLET BY [facility] 4 TIMES DAILY Oral for 30 Unknown Omeprazole 40 MG Oral for 90 A ctive Social History Tobacco Use: Social History Observation [...] Are you an other tobacco user? No Problems Problem Type SNOMED Code ICD Code Onset Dates Problem Status W/U Status Risk Notes Problem Chronic ulcer of foot (118909933) Non-pressure chronic ulcer of other part of left foot with fat layer exposed (L97.522) Active confirmed Problem 43703614 Non-pressure ulcer of left lower extremity, limited to breakdown of skin (L97.921) Active confirmed Problem 558418546 Hammer toe of left foot (M20.42) Active confirmed Problem 66469842 Non-pressure ulcer of left lower extremity with fat layer exposed (L97.922) Active confirmed Problem 29058234 Non-pressure ulcer of right lower extremity with fat layer exposed (L97.912) Active confirmed Vital Signs Blood pressure diastolic 50 mm Hg 11/15/2023 Height 5ft 5in in 11/15/2023 Blood pressure systolic 120 mm Hg 11/15/2023 Weight 168 lbs 11/15/2023 BMI 27.95 kg/m2 11/15/2023 Encounters Encounter Location Date Provider Diagnosis [facility] [address] [place] [address] 11/15/2023 Alba Caal Tinea unguium B35.1 ; Pain in left foot M79.672 and Pain in right toe(s) M79.674 Assessments Encounter Date Diagnosis (ICD Code) Assessment Notes Treatment Notes Treatment Clinical Notes Section Notes 11/15/2023 Tinea unguium (ICD-10 - B35.1) 11/15/2023 Pain in left foot (ICD-10 - M79.672) 11/15/2023 Pain in right toe(s) (ICD-10 - M79.674) Plan Of Treatment Pending Test Test Name Order Date [id number] SKIN/TISSUE 01/06/2023 Next Appt Details Provider Name:Alba Henry Mackenzie henry, 09/28/2024 10:00:00 AM, [address] [place], [address], Insurance Providers Payer Name Payer Address Payer Phone Subscriber Number Group Number Insured Name Patient Relationship to Insured Coverage Start Date Coverage End Date Medicare National Govt Svcs Inc [address] [facility] [place] [address] [id number] Sana Mireles Self - patient is the insured [employer] Blue Shield [address] [place] [address] [id number] Sana Mireles Self - patient is the insured Medical (General) History Medical History History ICD Code Anxiety Cancer Measles Mumps Chicken pox Headaches/Migraines High blood pressure Psychiatric disorder Celiac disease Surgical History Surgery Date(Month/Year) hysterectomy Hospitalization History Reason Date(Month/Year) C- CHF, respiratory issues 09/2022
== END 2024-08-24 11:59 | disposition home or self-care (01) ==
PROVIDERS: PCP Internal Medicine; Visit Provider Internal Medicine Gastroenterology
DX: R29.3 Abnormal posture (principal); M54.9 Dorsalgia, unspecified; G11.9 Hereditary ataxia, unspecified
CPT/HCPCS: 99214

== ENCOUNTER 2024-08-24 10:43 | Outpatient (REF) | payer MEDICARE, SELFPAY ==
[2024-08-24 12:43] LABS: MANUAL DIFF FLAG NO
[2024-08-24 13:19] LABS: Basophils Absolute Auto 0.1 X10*3/uL (0.0-0.2); Basophils Percent Auto 1.3 % (0-2); Eosinophils Absolute Auto 0.3 X10*3/uL (0.0-0.4); Eosinophils Percent Auto 4.9 % (0-4); Hematocrit 43.4 % (37.0-47.0); Hemoglobin 13.9 g/dl (12.0-16.0); Imm Gran Abs Auto 0.01 X10*3/uL (0.00-0.03); Imm Gran Pct Auto 0.2 % (0.0-0.4); Lymphocytes Absolute Auto 1.2 X10*3/uL (1.2-4.9); Lymphocytes Percent Auto 22.6 % (20-40); Mean Corpuscular Hemoglobin 28.9 pg (27.0-33.0); Mean Corpuscular Volume 90.2 fL (80.0-98.0); Mean Platelet Volume 10.6 fL (9.4-12.3); Monocytes Absolute Auto 0.5 X10*3/uL (0.1-1.2); Monocytes Percent Auto 9.3 % (2-11); Neutrophils Absolute Auto 3.4 x10*3/uL (2.0-8.3); Neutrophils Percent Auto 61.7 % (45-73); Platelet Count 279 X10*3/uL (160-400); Red Blood Count 4.81 X10*6/uL (4.20-5.50); Red Cell Distribution Width 13.7 % (11.0-16.0); White Blood Count 5.5 X10*3/uL (4.8-10.8)
--- OUTSIDE RECORDS SUMMARY | 2024-08-24 14:29 | XMS_ITS | Continuity of Care Document ---
Author Organization [facility] Address [address] [place] [address] Phone Care Team Providers Care Distributor Of Directories Name Role Phone Sesar QUINTERO, RVT, RPVI, [...] CT & [place] [facility], [address] [place] [address] Dr Mccollum [facility] [address], [id number], [place] tel:[phone] [facility] Venous insufficiency (chronic) (peripheral)E ssential (primary) hypertension 4 Sesar QUINTERO, RVT, RPASH Roper. [address] [facility], [address], [place], [place], [id number], [place]. tel:[phone] Referring Provider: Celestina Zimmerman MD S, [address] [place] [address], [address]. tel:[phone] [facility], [address] [place] [address] Dr Mccollum [address], [place], [id number], [place] tel:[phone] [facility] Chronic venous hypertension (idiopathic) with other complications of right lower extremity Oct-2 4 Sesar QUINTERO RVT, RPVI Robert. [address] [place] [address], Suite [facility], [place], [id number], [place]. tel:[phone] Referring Provider: Celestina Zimmerman MD S, [address] [place] [address], [place], [address]. tel:[phone] [facility], [address] [place] [address] Dr Mccollum [address]SuAnuj weathers [place], [id number], [place] tel:[phone] [facility] [place] [facility] [place] Encounter for follow-up examination after completed treatment for conditions other than malignant nePain in right leg Sep-2 4 Sesar QUINTERO RVT, RPVI Robert. [address] [place] [address], Suite [facility], [place], [id number], [place]. tel:[phone] Referring Provider: Celestina Zimmerman MD S, [address] [place] [address], [place], [address]. tel:[phone] [facility], [address] [place] [address] Dr Mccollum 1000Suite Anuj Zaldivar [place], [id number], [place] tel:[phone] CV[facility] - [facility] Varicose veins of right lower extremity with other complications Sep-2 4 Sesar QUINTERO RVT, RPVI Robert. [address] [place] [address], Suite [facility], [place], [id number], [place]. tel:[phone] Referring Provider: Celestina Zimmerman MD S, [address] [place] [address], [place], [address]. tel:[phone] Office/Outpt E&M Established 15 Mins- CT & [place] [facility], [address] [place] [address] Dr Mccollum 1000SuAnuj weathers [place], [id number], [place] tel:[phone] CVR - [facility] Chronic venous hypertension (idiopathic) without complications of bilateral lower extremity Sep-1 4 Sesar QUINTERO RVT, RPVI Robert. [address] [place] [address], [address], [place], [id number], [place]. tel:[phone] Referring Provider: Celestina Zimmerman MD S, [address] [place] [address], [place], [address]. tel:[phone] [facility], [address] [place] [address] Dr Mccollum 1000Suite 1000Anuj [place], [id number], [place] tel:[phone] [facility] [place] [facility] [place] Encounter for follow-up examination after completed treatment for conditions other than malignant nePain in right leg 4 Sesar QUINTERO RVT, SUMEET Roper. [address] [place] [address], [place] [address], [facility] [place], [id number], [place]. tel:[phone] Referring Provider: Celestina Zimmerman MD S, [address] [place] [address], [address]. tel:[phone] [facility], [address] [place] [address] [facility] [address] [address]An[place], [id number], [place] tel:[phone] [facility] - [place] [facility] Encounter for follow-up examination after completed treatment for conditions other than malignant nePain in right lower leg 4 Sesar QUINTERO RVT, SUMEET Roper. [address] [place] [address], [place] [address], [place], [id number], [place]. tel:[phone] Referring Provider: Celestina Zimmerman MD S, [address] [place] [address], [address]. tel:[phone] [facility], [address] [place] [address] Dr Mccollum 1000Suite 1000Anuj [place], [id number], [place] tel:[phone] [facility] [place] [facility] Encounter for follow-up examination after completed treatment for conditions other than malignant neChronic venous hypertension (idiopathic) with other complications of right lower extremity 4 Sesar QUINTERO RVT, SUMEET Roper. [address] [place] [address], Suite [facility], [place], [id number], [place]. tel:[phone] Referring Provider: Celestina Zimmerman MD S, [address] [place], [place] [address], [place], [address]. tel:[phone] [facility] MD TORRES, [address] [place] [address] Dr Mccollum [address]SuAnuj weathers [place], [id number], [place] tel:[phone] [facility] [place] [facility] [place] Chronic venous hypertension (idiopathic) with inflammation of right lower extremity 0 4 Owen Cole. [address] [facility], [address], [facility] [place], [id number], [place]. tel:[phone] Referring Provider: Celestina Zimmerman MD S, [address] [place] [address], [place], [address]. tel:[phone] [facility] MD TORRES, [address] [place] [address] Dr Mccollum 1000SuAnuj weathers [place], [id number], [place] tel:[phone] [facility] [place] [facility] Varicose veins of right lower extremity with other complications 4 Sesar QUINTERO RVT, SUMEET Roper. [address] [facility], [place] [address], [facility] [place], [id number], [place]. tel:[phone] Referring Provider: Celestina Zimmerman MD S, [address] [place] [address], [place], [address]. tel:[phone] Office/Outpt E&M Established 25 Mins- [place] & [place] [facility], [address] [place] [address] Dr Mcclolum [address]SuAnuj weathers MD, [id number], [place] tel:[phone] [facility] [place] [facility] [place] Chronic venous hypertension (idiopathic) with other complications of bilateral lower extremity 4 Sesar QUINTERO RVT, RPVI Robert. [address] [facility], [address], [facility] [place], [id number], [place]. tel:[phone] Referring Provider: Celestina Zimmerman MD S, [address] [place] [address], [place], [address]. tel:[phone] [facility] MD TORRES, [address] [place] [address] Dr Mccollum 1000SuAnuj weathers [place], [id number], [place] tel:[phone] CVR - [facility] Chronic venous hypertension (idiopathic) with other complications of bilateral lower extremity 4 Sesar QUINTERO RVT, RPVI Robert. [address] [place] [address], [place], [place], [id number], [place]. tel:[phone] Referring Provider: Celestina Zimmerman MD S, [address] [place] [address], [place], [address]. tel:[phone] [facility], [address] [place] [address] Dr Mccollum 1000Suite Anuj Zaldivar [place], [id number], [place] tel:[phone] CVR - [facility] Venous insufficiency (chronic) (peripheral)N evus, non-neoplasti c 4 Owen Cole. [address] [place] [address], [place], [place], [id number], [place]. tel:[phone] Referring Provider: Celestina Zimmerman MD S, [address] [place] [address], [place], [address]. tel:[phone] Office/Outpt E&M Established 15 Mins- [place] & [place] [facility], [address] [place] [address] Dr Mccollum 1000Suite 1000Anuj [place], [id number], [place] tel:[phone] CVR - [facility] Essential (primary) hypertensionV enous insufficiency (chronic) (peripheral)P ain in right lower legChronic venous hypertension (idiopathic) without complications of bilateral lower extremity 4 Sesar QUINTERO, SURESH, SUMEET Roper. [facility] [place] [address], [place], [place], [id number], [place]. tel:[phone] Referring Provider: Celestina Zimmerman MD S, [address] [place] [address], [place], [address]. tel:[phone] Office/Outpt E&M Established 15 Mins [facility], [address] [place] [address] Dr Mccollum 1000Suite 1000Anuj [place], [id number], [place] tel:[phone] [facility] [place] [facility] [place] Localized edemaVenous insufficiency (chronic) (peripheral)E ssential (primary) hypertension 4 Darrell Henao. [address] [facility] [address], [facility] [place], [id number], [place]. tel:[phone] Referring Provider: Celestina Zimmerman MD S, [address] [place] [address], [place], [address]. tel:[phone] [facility], [address] [place] [address] [facility] 1000Suite 1000Anuj [place], [id number], [place] tel:[phone] [facility] Chronic venous hypertension (idiopathic) with other complications of bilateral lower extremity 4 Sesar QUINTERO, JUVENTINOT, VI Judson. [address] [place] [address], [facility] [place], [place], [id number], [place]. tel:[phone] Referring Provider: Celestina Zimmerman MD S, [address] [place] [address], [place], [address]. tel:[phone] [facility], [address] [place] [address] [facility] 1000Suite 1000Anuj [place], [id number], [place] tel:[phone] CVR - [facility] Encounter for follow-up examination after completed treatment for conditions other than malignant nePain in left leg May- 3 Liam QUINTERO FACS RVT ASH Cha. [facility] [place] [address], [place], [address], [place]. tel:[phone] Referring Provider: Shad Wheeler MD FACS RVT RP, [address] [place] [address], [place], [address]. tel:[phone] [facility], [address] [place] [address] [address] 1000Anju [place], [id number], [place] tel:[phone] CVR - [facility] Chronic venous hypertension (idiopathic) with inflammation of left lower extremity May- 3 Sesar QUINTERO RVT, RPVI Judson. [address] [place] [address], Suite [facility], [facility] [place], [id number], [place]. tel:[phone] Referring Provider: Shad Wheeler MD FACS RVT RP, [facility] [facility] [address], [facility] [place], [address]. tel:[phone] [facility], [address] [place] [address] Dr [address], [place], [id number], [place] tel:[phone] [facility] [place] [facility] [place] Encounter for follow-up examination after completed treatment for conditions other than malignant nePain in right leg Sep-2 3 Liam QUINTERO FACS RVT [facility] Shad Cha. [facility] [facility], [address], [place], [address], [place]. tel:[phone] Referring Provider: Shad Wheeler MD FACS RVT [facility], [address] [place] [address] Suite [facility], [facility] [place], [address]. tel:[phone] [facility], [address] [place] [address] [address], [place], [id number], [place] tel:[phone] [facility] [place] [facility] [place] Chronic venous hypertension w inflammation of r low extrem Sep-2 3 Sesar QUINTERO, RVT, [facility] Judson. [address] [place] [address], Suite [facility], [place], [id number], [place]. tel:[phone] Referring Provider: Shad Wheeler MD FACS T [facility], [address] [place] [address] [address], [facility] [place], [address]. tel:[phone] Office/Outpt E&M Established 10 Mins - Telemedicine [facility], [address] [place] [address] [address], [place], [id number], [place] tel:[phone] [facility] [place] [facility] [place] Chronic venous htn w oth comp of bilateral low extrm Sep-1 3 Liam QUINTERO FACS RVT ASH Cha. [address] [place] [address], [address], [place], [address], [place]. tel:[phone] Referring Provider: Shad Wheeler MD FACS RVT [facility], [address] [place] [address] [address], [place], [address]. tel:[phone] [facility], [address] [place] [address] [address], [place], [id number], [place] tel:[phone] [facility] [place] [facility] [place] Pain in right legPain in left leg 3 Liam QUINTERO [facility] Shad Cha. [address] [facility], [address], [facility] [place], [address], [place]. tel:[phone] Referring Provider: Shad Wheeler MD [facility], [address] [place] [address] [address], [facility] [place], [address]. tel:[phone] Office/Oupt E&M New Pt 45 Mins [facility], [address] [place] [address] [address], [place], [id number], [place] tel:[phone] [facility] [place] [facility] [place] Chronic venous htn w oth comp of bilateral low extrmPain in right lower legPain in left lower legPain in right legRestless legs syndromeEssen tial (primary) hypertensionP ain in left legCramp and spasmLocalize d edema 3 Liam QUINTERO [facility] Shad Semaj. [address] [place] [address], Suite [facility], [facility] [place], [address], [place]. tel:[phone] Referring Provider: Shad Wheeler MD [facility], [address] [place] [address], [facility] [place], [address]. tel:[phone] Family History Family Member Type Diagnosis Age At Onset No Information Payers Payer name Insurance type Covered republican ID Authorsaraha tirosa(s) Medicare DANYELL VALADEZ [id number] [facility] DANYELL [id number] Social History Type Description Quantity Date Captured [...]
[2024-08-24 14:30] LABS: Folate 10.2 ng/mL (> or = 4.0); Vitamin B12 418 pg/mL (200-900)
[2024-08-24 14:55] LABS: Alanine Aminotransferase 56 U/L (0-31); Albumin Level 4.5 g/dL (3.5-5.0); Alkaline Phosphatase 118 U/L (39-117); Anion Gap 14 (12-20); Aspartate Amino Transferase 53 U/L (5-31); Bilirubin Total 0.5 mg/dL (0.0-1.0); Blood Urea Nitrogen 14 mg/dL (9-16); Calcium 9.7 mg/dL (8.4-10.2); Carbon Dioxide 27 mmol/L (22-29); Chloride 105 mmol/L (96-108); Estimated Glomerular Filt Rate 50; Glucose Random 103 mg/dL (60-115); Magnesium 2.2 mg/dL (1.6-2.6); Phosphorus 3.5 mg/dL (2.7-4.5); Potassium 3.8 mmol/L (3.3-5.1); Sodium 142 mmol/L (135-145); Total Protein 7.9 g/dL (6.5-8.0)
[2024-08-24 15:15] LABS: TSH reflex Free T4 5.42 uIU/mL (0.32-4.0); Vitamin D 25-OH Total 34.3 ng/mL (>30)
[2024-08-24 15:55] LABS: Free T4 (Free Thyroxine) 1.03 ng/dL (0.71-1.85)
[2024-08-28 11:24] LABS: Vitamin A 96 mcg/dL (38-98)
[2024-09-01 14:32] LABS: Nicotinamide <20 ng/mL (see note); Vit B3 - Nicotinic Acid <20 ng/mL (see note)
[2024-09-04 05:34] LABS: Vitamin B1 8 nmol/L (8-30)
[2024-09-07 16:18] LABS: Vitamin B6 13.2 ng/mL (2.1-21.7)
== END 2024-08-24 10:44 | disposition home or self-care (01) ==
LOC: HO.LAB 10:43
PROVIDERS: PCP Internal Medicine; Visit Provider Internal Medicine Gastroenterology
DX: R10.9 Unspecified abdominal pain (principal); R13.10 Dysphagia, unspecified; M54.9 Dorsalgia, unspecified; G11.9 Hereditary ataxia, unspecified; K75.81 Nonalcoholic steatohepatitis (NASH); E83.52 Hypercalcemia
CPT/HCPCS: 36415; 80053; 82306; 82550; 82607; 82746; 83735; 84100; 84207; 84425; 84439; 84443; 84590; 84591; 85025; 99212

== ENCOUNTER → 2024-09-07 13:45 | Outpatient (BNV) | payer MEDICARE, SELFPAY | PROVIDERS: PCP Internal Medicine; Visit Provider Radiology Diagnostic Radiology | DX: G11.9 Hereditary ataxia, unspecified (principal) | CPT/HCPCS: 70553 ==

== ENCOUNTER 2024-09-07 13:50 | Outpatient (REF) | payer MEDICARE, SELFPAY ==
[2024-09-07] MEDS: gadobutroL 10 ML VIAL IVPUSH (14:48)
== END 2024-09-07 13:51 | disposition home or self-care (01) ==
LOC: HO.MRI 13:50
PROVIDERS: PCP Internal Medicine; Visit Provider Internal Medicine Gastroenterology
DX: G11.9 Hereditary ataxia, unspecified (principal)
CPT/HCPCS: 70553; A9585

== ENCOUNTER 2024-09-11 15:45 | Outpatient (REF) | payer MEDICARE, SELFPAY ==
--- OUTSIDE RECORDS SUMMARY | 2024-09-11 16:18 | XMS_ITS | Patient Health Record ---
Author Organization [facility] gabriel [place] Address [address] [facility] [place] [address] Care Team Providers Care Consulting Sme Name Role Phone Celestina Zimmerman MD Primary Care Provider Alba Mir Unavailable [phone] Allergies Allergen (clinical drug ingredient) Drug/Non Drug [...] AT BEDTIME Oral for 90 Active Nystatin 686370 UNIT/ML Mouth/Throat for 10 Not-Taking Albuterol Sulfate [...] 100 MG TAKE 1 TABLET BY MO MSH TWICE DAILY Oral for 90 Active Levothyroxine [...] HCl 20 MG TAKE 1 TABLET BY [facility] 4 TIMES DAILY Oral for 30 [...] Risk Notes Problem Chronic ulcer of foot (356294326) Non-pressure chronic ulcer of other part of left foot with fat layer exposed (L97.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) Active confirmed Problem 61134205 Non-pressure ulcer of left lower extremity, limited to breakdown of skin (L97.921) Active confirmed Problem 748608260 Hammer toe of left foot (M20.42) Active confirmed Problem 82043712 Non-pressure ulcer of left lower extremity with fat layer exposed (L97.922) Active confirmed Problem 13754785 Non-pressure ulcer of right lower extremity with fat layer exposed (L97.912) Active confirmed Vital Signs Blood pressure diastolic 50 mm Hg 11/15/2023 Height 5ft 5in in 11/15/2023 Blood pressure systolic 120 mm Hg 11/15/2023 Weight 168 lbs 11/15/2023 BMI 27.95 kg/m2 11/15/2023 Encounters Encounter Location Date Provider Diagnosis [facility] [address] [place] [address] 11/15/2023 Alba Caal Tinea unguium B35.1 ; [...] Treatment Pending Test Test Name Order Date [id number] SKIN/TISSUE 01/06/2023 Next Appt Details Provider Name:Alba Henry Mackenzie henry, 09/28/2024 10:00:00 AM, [address] [place], [address], Insurance Providers Payer Name Payer Address Payer Phone Subscriber Number Group Number Insured Name Patient Relationship to Insured Coverage Start Date Coverage End Date Medicare National Govt Svcs Inc [address] [facility] [place] [address] [id number] Sana Mireles Self - patient is the insured [employer] Blue Shield [address] [place] [address] [phone] [id number] Sana Mireles Self - patient is the insured Medical (General) History Medical History History ICD Code Anxiety Cancer Measles Mumps Chicken pox Headaches/Migraines High blood pressure Psychiatric disorder Celiac disease Surgical History Surgery Date(Month/Year) hysterectomy Hospitalization History Reason Date(Month/Year) C- CHF, respiratory issues 09/2022
--- OUTSIDE RECORDS SUMMARY | 2024-09-11 16:18 | XMS_ITS ---
Author Organization [facility] Address [address] [facility] [place]erra [address] Care Team Providers Care Cpa Tax Name Role Phone Celestina Zimmerman MD Primary Care Provider Alba Mir Unavailable [phone] Allergies Allergen (clinical drug ingredient) Drug/Non Drug [...] 5 MG Oral for 90 Active Nystatin 668671 UNIT/ML Mouth/Throat for 10 Not-Taking Dicyclomine HCl [...] 023 Encounters Encounter Location Date Provider Diagnosis [facility] [place] [address] [place] [address] 04/08/2023 Alba Perica Tinea unguium B35.1 ; [...] Name:Alba Nash Mackenzie henry, 09/28/2024 10:00:00 AM, [address] [place] [address], [phone], Procedure Notes * Category Sub-Category Detail Notes [...] as necessary. Patient chooses, no pharmaceutical tx (86285) Progress Notes * JAIML Sana ADOB:1950 (72 yo F)Acc No.[id number]:04/08/2023 Progress Note Patient:?Sana De Jesus Provider:?Alba Caal DPM :1950???Age:72 Y???Sex:Female D ate:04/08/2023 Address:[place] [address], [id number] Pcp:Celestina Zimmerman MD Subjective: * Chief Complaints: [...] Surgical History:?hysterecto my * Hospitalization/Major Diagno stic Procedure:?[facility]- CHF, respiratory issues 09/2022 * Family History:?Mother: [...] TABLET BY MOUTH ONCE DAILY Oral Nystatin 238288 UNIT/ML Suspension Mouth/Throat Not- Taking/PRN Doxycycline Monohydrate [...] BY MOUTH ONCE DAILY Oral Not-Taking/PRN Nystatin 109542 UNIT/ML Suspension Mouth/Throat UnknownDicyclomine HCl 20 MG [...] as necessary. Patient chooses, no pharmaceutical tx (91615).? * Procedure Codes:?22603 QUE CHEATHAM, 1-5 * Follow Up:?prn * Images: * Sign off status: Completed true * Provider:?Alba Caal DPM Date:?03/2023 Generated for Yamil carlton/Luc/Jonnathan on:?09/11/2024 04:18 PM EST History and Physical Notes * [...]
--- OUTSIDE RECORDS SUMMARY | 2024-09-11 16:18 | XMS_ITS ---
Author Organization [facility] Address [address] [facility] [place] [address] Care Team Providers Care Physical Therapy Aid Name Role Phone Celestina Zimmerman MD Primary Care Provider Alba Mir Unavailable [phone] Allergies Allergen (clinical drug ingredient) Drug/Non Drug [...] ONCE DAILY Oral for 5 Not-Taking Nystatin 235385 UNIT/ML Mouth/Throat for 10 Not-Taking Clopidogrel Bisulfate [...] 024 Encounters Encounter Location Date Provider Diagnosis [facility] [place] [address] [place] [address] 11/15/2023 Alba Perica Tinea unguium B35.1 ; [...] Name:Alba Henry Mackenzie henry, 09/28/2024 10:00:00 AM, [address] [place] [address], [phone], Procedure Notes * Category Sub-Category Detail Notes [...] as necessary. Patient chooses, no pharmaceutical tx (10552) Progress Notes * Sana DE JESUS ADOB:1950 (73 yo F)Acc No.[id number]:11/15/2023 Progress Note Patient:?Sana De Jesus Provider:?Alba Caal DPM :1950???Age:73 Y???Sex:Female D ate:11/15/2023 Address:[address] [address], [id number] Pcp:Celestina Zimmerman MD Subjective: * Chief Complaints: [...] Surgical History:?hysterecto my * Hospitalization/Major Diagno stic Procedure:?[facility] [place]- CHF, respiratory issues 09/2022 * Family History:?Mother: [...] TABLET BY MOUTH ONCE DAILY Oral Nystatin 293861 UNIT/ML Suspension Mouth/Throat Not- Taking/PRN Doxycycline Monohydrate [...] BY MOUTH ONCE DAILY Oral Not-Taking/PRN Nystatin 773279 UNIT/ML Suspension Mouth/Throat UnknownDicyclomine HCl 20 MG [...] as necessary. Patient chooses, no pharmaceutical tx (41940).? * Procedure Codes:?25420 QUE BECKI NAIL, 1-5 * Follow Up:?prn * Images: * Sign off status: Completed true * Provider:?Alba Caal, TRACY Date:? Generated for Yamil carlton/Luc/Jonnathan on:?09/11/2024 04:18 PM [...]
--- OUTSIDE RECORDS SUMMARY | 2024-09-11 16:18 | XMS_ITS | Continuity of Care Document ---
Author Organization [facility] Address [address] [place] [address] Phone Care Team Providers Care Territory Manager Name Role Phone Sesar QUINTERO, RVT, RPVI, [...] Mins- [place] & [place] [facility], [address] [place] [address] Dr Mccollum [address] [address]Anuj [place], [id number], [place] tel:[phone] [facility] [place] Venous insufficiency (chronic) (peripheral)E ssential (primary) hypertension 4 Sesar QUINTERO, RVT, RPASH Roper. [address] [facility], [address], [place], [place], [id number], [place]. tel:[phone] Referring Provider: Celestina Zimmerman MD S, [address] [place] [address], [address]. tel:[phone] Deepti [facility], [address] [place] [address] Dr Mccollum 1000[address], [place], [id number], [place] tel:[phone] CVR [facility] Chronic venous hypertension (idiopathic) with other complications of right lower extremity Oct-2 4 Sesar QUINTERO RVT, RPVI Robert. [address] [place] [address], Suite [facility], [place], [id number], [place]. tel:[phone] Referring Provider: Celestina Zimmerman MD S, [address] [place] [address], [place], [address]. tel:[phone] [facility], [address] [place] [address] Dr Mccollum [address]SuAnuj weathers [place], [id number], [place] tel:[phone] [facility] - [place] [facility] [place] Encounter for follow-up examination after completed treatment for conditions other than malignant nePain in right leg Sep-2 4 Sesar QUINTERO RVT, RPVI Robert. [address] [place] [address], Suite [facility], [place], [id number], [place]. tel:[phone] Referring Provider: Celestina Zimmerman MD S, [address] [place] [address], [place], [address]. tel:[phone] Kenneth [facility], [address] [place] [address] Dr Mccollum 1000Suite Anuj Zaldivar [place], [id number], [place] tel:[phone] CVR - [facility] Varicose veins of right lower extremity with other complications Sep-2 4 Sesar QUINTERO RVT, RPVI Robert. [address] [place] [address], Suite [facility], [place], [id number], [place]. tel:[phone] Referring Provider: Celestina Zimmerman MD S, [address] [place] [address], [place], [address]. tel:[phone] Office/Outpt E&M Established 15 Mins- [place] & [place] [facility], [address] [place] [address] Dr Mccollum 1000SuAnuj weathers [place], [id number], [place] tel:[phone] CVR - [facility] Chronic venous hypertension (idiopathic) without complications of bilateral lower extremity Sep-1 4 Sesar QUINTERO RVT, RPVI Robert. [address] [place] [address], [address], [place], [id number], [place]. tel:[phone] Referring Provider: Celestina Zimmerman MD S, [address] [place] [address], [place], [address]. tel:[phone] Deepti [facility], [address] [place] [address] Dr Mccollum 1000Suite 1000Anuj [place], [id number], [place] tel:[phone] [facility] [place] Encounter for follow-up examination after completed treatment for conditions other than malignant nePain in right leg 4 Sesar QUINTERO RVT, SUMEET Roper. [address] [place] [address], [place] [address], [facility] [place], [id number], [place]. tel:[phone] Referring Provider: Celestina Zimmerman MD S, [address] [place] [address], [address]. tel:[phone] Deepti [facility], [address] [place] [address] [facility] [address] [address]An[place], [id number], [place] tel:[phone] CVR - [place] [facility] Encounter for follow-up examination after completed treatment for conditions other than malignant nePain in right lower leg 4 Sesar QUINTERO RVT, SUMEET Roper. [address] [place] [address], [place] [address], [place], [id number], [place]. tel:[phone] Referring Provider: Celestina Zimmerman MD S, [address] [place] [address], [address]. tel:[phone] Deepti [facility], [address] [place] [address] Dr Mccollum 1000Suite 1000Anuj [place], [id number], [place] tel:[phone] CVR - [place] [facility] Encounter for follow-up examination after completed treatment for conditions other than malignant neChronic venous hypertension (idiopathic) with other complications of right lower extremity 4 Sesar QUINTERO RVT, SUMEET Roper. [address] [place] [address], Suite [facility], [place], [id number], [place]. tel:[phone] Referring Provider: Celestina Zimmerman MD S, [address] [place], [place] [address], [place], [address]. tel:[phone] [facility], [address] [place] [address] Dr Mccollum [address]SuAnuj weathers [place], [id number], [place] tel:[phone] CV[facility] - [place] Chronic venous hypertension (idiopathic) with inflammation of right lower extremity 0 4 Owen Cole. [address] [facility], [address], [facility] [place], [id number], [place]. tel:[phone] Referring Provider: Celestina Zimmerman MD S, [address] [place] [address], [place], [address]. tel:[phone] Deepti [facility] MD [facility], [address] [place] [address] Dr Mccollum 1000SuAnuj weathers [place], [id number], [place] tel:[phone] [facility] [place] Varicose veins of right lower extremity with other complications 4 Sesar QUINTERO RVT, SUMEET Roper. [address] [facility], [place] [address], [facility] [place] [place], [id number], [place]. tel:[phone] Referring Provider: Celestina Zimmerman MD S, [address] [place] [address], [place], [address]. tel:[phone] Office/Outpt E&M Established 25 Mins- [place] & [place] [facility], [address] [place] [address] Dr Mccollum 1000SuAnuj weathers [place], [id number], [place] tel:[phone] [facility] [place] Chronic venous hypertension (idiopathic) with other complications of bilateral lower extremity 4 Sesar QUINTERO RVT, RPVI Robert. [address] [facility] [address], [address], [facility] [place], [id number], [place]. tel:[phone] Referring Provider: Celestina Zimmerman MD S, [address] [place] [address], [place], [address]. tel:[phone] Deepti [facility] MD [facility], [address] [place] [address] Dr Mccollum 1000SuAnuj weathers [place], [id number], [place] tel:[phone] CVR - [facility] Chronic venous hypertension (idiopathic) with other complications of bilateral lower extremity 4 Sesar QUINTERO RVT, RPVI Robert. [address] [place] [address], [place], [place], [id number], [place]. tel:[phone] Referring Provider: Celestina Zimmerman MD S, [address] [place] [address], [place], [address]. tel:[phone] [facility], [address] [place] [address] Dr Mccollum 1000Suite Anuj Zaldivar [place], [id number], [place] tel:[phone] CVR - [facility] Venous insufficiency (chronic) (peripheral)N evus, non-neoplasti c 4 Owen Cole. [address] [place] [address], [place], [place], [id number], [place]. tel:[phone] Referring Provider: Celestina Zimmerman MD S, [address] [place] [address], [place], [address]. tel:[phone] Office/Outpt E&M Established 15 Mins- CT & [place] [facility], [address] [place] [address] Dr Mccollum 1000Suite 1000Anuj [place], [id number], [place] tel:[phone] CVR - [facility] Essential (primary) hypertensionV enous insufficiency (chronic) (peripheral)P ain in right lower legChronic venous hypertension (idiopathic) without complications of bilateral lower extremity 4 Sesar QUINTERO, SURESH, SUMEET Roper. [facility] [place] [address], [place], [place], [id number], [place]. tel:[phone] Referring Provider: Celestina Zimmerman MD S, [address] [place] [address], [place], [address]. tel:[phone] Office/Outpt E&M Established 15 Mins [facility], [address] [place] [address] Dr Mccollum 1000Suite 1000Anuj [place], [id number], [place] tel:[phone] [facility] - [place] Localized edemaVenous insufficiency (chronic) (peripheral)E ssential (primary) hypertension 4 Darrell Henao. [address] [facility] [address], [facility] [place], [place], [id number], [place]. tel:[phone] Referring Provider: Celestina Zimmerman MD S, [address] [place] [address], [place], [address]. tel:[phone] [facility], [address] [place] [address] [facility] 1000Suite 1000Anuj [place], [id number], [place] tel:[phone] [facility] - [facility] Chronic venous hypertension (idiopathic) with other complications of bilateral lower extremity 4 Sesar QUINTERO, JUVENTINOT, VI Judson. [address] [place] [address], [facility] [place], [id number], [place]. tel:[phone] Referring Provider: Celestina Zimmerman MD S, [address] [place] [address], [place], [address]. tel:[phone] [facility], [address] [place] [address] [facility] 1000Suite 1000Anuj [place], [id number], [place] tel:[phone] CVR - [facility] Encounter for follow-up examination after completed treatment for conditions other than malignant nePain in left leg May- 3 Liam QUINTERO FACS RVT ASH Cha. [facility] [place] [address], [place], [address], [place]. tel:[phone] Referring Provider: Shad Wheeler MD FACS RVT RP, [address] [place] [address], [place], [address]. tel:[phone] Kenneth [facility], [address] [place] [address] [address] 1000Anuj [place], [id number], [place] tel:[phone] CVR - [facility] Chronic venous hypertension (idiopathic) with inflammation of left lower extremity May- 3 Sesar QUINTERO RVT, RPVI Judson. [address] [place] [address], Suite [facility], [facility] [place], [id number], [place]. tel:[phone] Referring Provider: Shad Wheeler MD FACS RVT RP, [facility] [facility] [address], [facility] [place], [address]. tel:[phone] Kenneth [facility], [address] [place] [address] Dr [address], [place], [id number], [place] tel:[phone] CVR - [place] Encounter for follow-up examination after completed treatment for conditions other than malignant nePain in right leg Sep-2 3 Liam QUINTERO FACS RVT [facility] Shad Cha. [facility], [address], [place], [address], [place]. tel:[phone] Referring Provider: Shad Wheeler MD FACS RVT [facility], [address] [place] [address] Suite [facility], [facility] [place], [address]. tel:[phone] Kenneth [facility], [address] [place] [address] [address], [place], [id number], [place] tel:[phone] [facility] - [place] Chronic venous hypertension w inflammation of r low extrem Sep-2 3 Sesar QUINTERO, RVT, [facility] Judson. [address] [place] [address], Suite [facility], [place], [id number], [place]. tel:[phone] Referring Provider: Shad Wheeler MD FACS T [facility], [address] [place] [address] [address], [facility] [place], [address]. tel:[phone] Office/Outpt E&M Established 10 Mins - Telemedicine [facility], [address] [place] [address] [address], [place] nAuj, [id number], [place] tel:[phone] [facility] - [place] Chronic venous htn w oth comp of bilateral low extrm Sep-1 3 Liam QUINTERO FACS RVT ASH Cha. [address] [place] [address], [address], [place], [address], [place]. tel:[phone] Referring Provider: Shad Wheeler MD FACS RVT [facility], [address] [place] [address] [address], [place], [address]. tel:[phone] Kenneth [facility], [address] [place] [address] [address], [place] An[place], [id number], [place] tel:[phone] CV[place] - [place] Pain in right legPain in left leg 3 Liam QUINTERO [facility] Shad Cha. [address] [facility], [address], [facility] [place], [address], [place]. tel:[phone] Referring Provider: Shad Wheeler MD [facility], [address] [place] [address] [address], [facility] [place], [address]. tel:[phone] Office/Oupt E&M New Pt 45 Mins [facility], [address] [place] [address] [address], [place], [id number], [place] tel:[phone] CVR - [place] Chronic venous htn w oth comp of bilateral low extrmPain in right lower legPain in left lower legPain in right legRestless legs syndromeEssen tial (primary) hypertensionP ain in left legCramp and spasmLocalize d edema 3 Liam QUINTERO [facility] Shad Semaj. [address] [place] [address], Suite [facility], [facility] [place], [address], [place]. tel:[phone] Referring Provider: Shad Wheeler MD [facility], [address] [place] [address], [facility] [place], [address]. tel:[phone] Family History Family Member Type Diagnosis Age At Onset No Information Payers Payer name Insurance type Covered constitution party ID Authorsaraha tirosa(s) Medicare DANYELL VALADEZ [id number] [facility] DANYELL [id number] Social History Type Description Quantity Date Captured [...]
[2024-09-11 17:43] LABS: C Reactive Protein 0.39 mg/dL (< or = 0.50)
[2024-09-11 18:45] LABS: Erythrocyte Sedimentation Rate 12 MM/HR (0-20)
[2024-09-15 13:53] LABS: Ej Ab <11 SI (<11); Jo-1 Ab <11 SI (<11); MDA5 Ab <11 SI (<11); Mi-2 alpha Ab <11 SI (<11); Mi-2 beta Ab <11 SI (<11); NXP-2 (MJ) Ab <11 SI (<11); Oj Ab <11 SI (<11); Pl-12 Ab <11 SI (<11); Pl-7 Ab <11 SI (<11); SRP Ab 19 SI (<11); TIF1 gamma Ab <11 SI (<11)
[2024-09-16 15:59] LABS: Vitamin B5 (Pantothenic Acid) 57 ng/mL (<275)
[2024-09-16 19:18] LABS: Aldolase 7.3 U/L (<=8.1)
== END 2024-09-11 15:46 | disposition home or self-care (01) ==
LOC: HO.LAB 15:45
PROVIDERS: PCP Internal Medicine; Visit Provider Internal Medicine Gastroenterology
DX: R29.3 Abnormal posture (principal); R79.89 Other specified abnormal findings of blood chemistry; G11.9 Hereditary ataxia, unspecified
CPT/HCPCS: 36415; 82085; 82550; 84182; 84591; 85652; 86140; 86235

== ENCOUNTER 2024-10-16 12:25 | Outpatient (AMB) | payer MEDICARE, SELFPAY ==
[2024-10-16 12:26] VITALS: BP 116/62; PULSE 59; RESP 18; TEMP 36.4; O2SAT 96; BMI 33.8
--- NOTE | 2024-10-16 12:26 | A.OFFPC_ITS ---
Vital Signs 10/16/24 12:26 Height 5 ft 3 in Weight 191 lb BMI 33.8 BP 116/62 Blood Pressure Location Lt brachial Position Sitting Respiration 18 Pulse 59 Pulse Source Pulse Oximeter Temp 97.6 F Temp Source Oral Pulse Oximetry (%) 96 Oxygen Delivery Method Room Air Intake Visit Reasons: Swollen eyes Intake Note: Pt is here today for a sick visit. Pt c/o swollen eyes. Pt also c/o unsteady gate. Allergies gluten [GLUTEN] Allergy (Severe, Verified 10/16/24 12:29) ABD PAIN Sulfa (Sulfonamide Antibiotics) [SULFA(SULFONAMIDE ANTIBIOTICS)] Allergy (Severe, Verified 10/16/24 12:29) Rash mirtazapine Adverse Reaction (Severe, Verified 10/16/24 12:29) peripheral edema Medication List - Last Reconciled 10/16/24 by Celestina Zimmerman MD amlodipine 10 mg PO QAM 90 days azelastine 2 sprays intranasal BID 30 days budesonide 32 mcg/actuation 1 spray intranasal BID compress.stocking,knee,reg,med apply in the am and remove in the pm fluticasone propionate 50 mcg/actuation 2 sprays intranasal DAILY 30 days furosemide 40 mg PO DAILY gabapentin 300 mg PO DAILY gabapentin 100 mg PO TID hydralazine 75 mg PO BEDTIME hydralazine 25 mg PO DIRECTED labetalol 100 mg PO BID levothyroxine 100 mcg PO DAILY lorazepam 1 mg PO BID methocarbamol 750 mg PO TID PRN montelukast (Singulair) 10 mg PO DAILY PRN 90 days nebulizers As directed omeprazole 40 mg PO BID oxybutynin chloride 5 mg PO BEDTIME oxybutynin chloride ER mg PO DAILY peg 3350-electrolytes 236-22.74-6.74 -5.86 gram (Golytely) 240 mL PO Q10M prochlorperazine maleate (Compazine) 10 mg PO BID PRN ropinirole 0.5 mg PO BEDTIME sertraline 100 mg PO DAILY sodium fluoride-pot nitrate 1.1-5 % PO BEDTIME spironolactone 50 mg (2 x 25 mg) PO DAILY trazodone 100 mg PO BEDTIME PRN ursodiol 500 mg PO BID Tobacco use date assessed: 10/16/24 Fall risk assessment: No Falls in past year Last assessed Fall Risk: 10/16/24 Dental Screening Dental Screen Date: 10/16/24 Did you have a dental visit in the last 12 months?: Yes Did you have a dental problem in the last 6 months where you did not have access to dental care?: No Was dental information given to patient?: Patient has dentist HPI Swollen eyes HPI Details Patient presents for the follow-up hypertension hypothyroidism chronic anxiety and depression. Patient has been having difficulty with her balance and fell down the stairs a few weeks ago. She denies any head injury or loss of consciousness. She denies weakness or numbness in extremities or diplopia. Patient reports progressing difficulty swallowing liquid and solids over last few months. She was evaluated at [facility] 4 years ago for dysphagia and had EGD with negative esophageal biopsy. Barium swallow showed severe esophageal dysmotility. Patient was evaluated by GI Dr Shields and is scheduled for EGD and colonoscopy. Patient had a brain MRI showed nonspecific small-vessel changes, and callosal septal T2 hyper intensity consistent with possible inflammatory demyelination, but no masses, or CVA. She is referred to neurologist. Patient is established with a psychiatrist for chronic anxiety and depression. [facility] Medical History (Updated 10/16/24 @ 15:42 by Celestina Zimmerman MD) Chronic rhinitis Pulmonary nodule Pulmonary nodule Hearing loss Annual physical exam Dysphagia Vocal cord dysfunction Weight gain Edema Urinary incontinence Asthma History of concussion Shortness of breath Lower extremity edema Dyspnea Hypoxemia requiring supplemental oxygen Nonspecific interstitial pneumonitis Peripheral neuropathy Psychiatric disorder Mammogram normal Hyperlipemia Pulmonary hypertension DANIS on CPAP Pneumonitis Orthostatic hypotension dysautonomic syndrome Hypothyroid HTN (hypertension) Celiac disease Diastolic CHF Surgical History Hx of esophagogastroduodenoscopy History of total abdominal hysterectomy and bilateral salpingo-oophorectomy Endometrial adenocarcinoma History of colonoscopy Family History Father Weston cell cancer HTN (hypertension) CVD (cardiovascular disease) Mother Crohn disease Cancer Maternal Grandfather No problems noted. Maternal Grandmother No problems noted. Paternal Grandfather CVD (cardiovascular disease) Paternal Grandmother COPD (chronic obstructive pulmonary disease) Brother No problems noted. Sister No problems noted. Daughter No problems noted. Social History Household Members: Spouse Housing: House Are you a primary physician primary care sports medicine to a significant other at home: No Do you presently have visiting nurse or other home services: No Alcohol intake: current Alcohol intake frequency: holidays/special occasions only Comment: pt resting Patient Tobacco Use Status: Former Tobacco user Tobacco use type: Cigarette Years Smoked: 2 e-Cigarette/Vaping Use: Never Used Second Hand Smoke Exposure: No service: No Current occupational status: retired Cognitive needs: No Hearing needs: Yes Vision needs: Yes Questionnaire PHQ-9 Over the last 2 weeks, how often have you been bothered by any of the following problems? 1. Little interest or pleasure in doing things: not at all 2. Feeling down, depressed, or hopeless: not at all 3. Trouble falling or staying asleep, or sleeping too much: not at all 4. Feeling tired or having little energy: not at all 5. Poor appetite or overeating: not at all 6. Feeling bad about yourself - or that you are a failure or have let yourself or your family down: not at all 7. Trouble concentrating on things, such as reading the newspaper or watching television: not at all 8. Moving or speaking so slowly that other people could have noticed. Or the opposite - being so fidgety or restless that you have been moving around a lot more than usual: not at all 9. Thoughts that you would be better off or of hurting yourself in some way: not at all Total score: 0 Depression Screening Interpretation: Negative Depression Screening Done: Yes 23561 - PHQ-9 Billing: Yes Source: Developed by Drs. Judson Bravo, Breonna Fernandez, Jared Johnson and colleagues, with an educational shola from [employer]. Thrive Questionnaire Date Thrive assessed: 10/16/24 I am a: Patient What is your living situation today?: I have a steady place to live Within the past 12 months, did the food you bought not last and you didn't have the money to get more?: Never true Within the past 12 months, did you worry whether your food would run out before you got money to buy more?: Never true Do you have trouble paying for medicines?: No Do you have trouble getting transportation to medical appointments?: No Do you have trouble paying your heating and electricity bill?: No Do you have trouble taking care of your child, family member or friend?: No Do you have trouble with day-to-day activities such as bathing, preparing meals, shopping, managing finances, etc.?: No Are you currently unemployed and looking for a job?: No Are you interested in more education?: No Please select the resources that you would like help with: None Currently or been in a relationship where the following occur: No concerns reported THRIVE Score: 0 AUDIT C Alcohol Use Questionnaire (AUDIT-C) 1. How often do you have a drink containing alcohol?: Monthly or less 2. How many drinks containing alcohol do you have on a typical day when you are drinking?: 1 or 2 3. How often do you have six or more drinks on one occasion?: Never Total Score: 1 MONA-7 AMB Questionnaire MONA-7 Date MONA - 7 assessed: 10/16/24 Feeling nervous, anxious, or on edge: 1 = Several days Not being able to stop or control worryin = Several days Worrying too much about different things: 1 = Several days Trouble relaxin = Several days Being so restless that it is hard to sit still: 1 = Several days Becoming easily annoyed or irritable: 0 = Not at all Feeling afraid as if something awful might happen: 0 = Not at all Total MONA-7 score (0-4 normal; 5-9 mild; 10-14 moderate; 15-21 severe): 5 Source: Developed by Drs. Judson Bravo, Breonna Fernandez, Jared Johnson and colleagues, with an educational shola from [employer]. MONA-7 Assessment Billing MONA-7 Assessment Tool: MONA-7 Assessment 96178 Review of Systems Const All systems reviewed & are unremarkable except as noted in HPI and below Eyes Reports no additional complaints ENT Reports no additional complaints Card Reports no additional complaints Resp Reports no additional complaints GI Reports no additional complaints Reports no additional complaints Physical exam (Primary Care) Vital Signs: Last Vital Signs Temp 97.6 F 10/16/24 12:26 Pulse 59 10/16/24 12:26 Resp 18 10/16/24 12:26 BP 116/62 10/16/24 12:26 Pulse Ox 96 10/16/24 12:26 Oxygen Delivery Method Room Air 10/16/24 12:26 BMI result Body Mass Index 33.8 Tobacco/Smoking Status: Tobacco use Status Tobacco use date assessed 10/16/24 10/16/24 12:31 Patient Tobacco Use Status Former Tobacco user 10/16/24 12:31 Tobacco use type Cigarette 10/16/24 12:31 e-Cigarette/Vaping Use Never Used 10/16/24 12:31 PHQ-9: PHQ-9 Score PHQ-9: Total score 0 10/16/24 12:31 Depression Screening Interpretation: Negative Thrive Assessment: Date of Thrive Assessment Date Thrive assessed 10/16/24 10/16/24 12:31 Currently or been in a relationship where the following occur: No concerns reported Const General: no acute distress HENMT Face and sinus: Yes normal facial exam Eyes General: appearance normal, both eyes and all related structures Resp Effort & Inspection: normal respiratory effort Auscultation: clear to auscultation bilaterally Cardio Rhythm: regular rhythm Heart sounds: S1 normal heart sound present and S2 normal heart sound present GI Inspection: Yes normal to inspection Palpation (GI): Soft to palpation Percussion: Yes normal to percussion Auscultation: normal bowel sounds Neuro Cranial nerves: Yes CN's II-XII intact bilaterally Gait exam (Neuro): Shuffling gait present Motor exam (neuro): 5/5 motor strength present throughout and Motor abnormalities not present Coordination: chkjna-ou-napo test normal Romberg Test: Negative Extrem General: Yes no clubbing, cyanosis or edema Coding Level of Care Code Est Pt Level 4 (59005) Complex EM visit Add On G2211 Diagnoses Hypothyroid E03.9 Diastolic CHF I50.33 Heart failure chronicity: acute on chronic Orthostatic hypotension dysautonomic syndrome G90.3 Dysphagia R13.10 Elevated LFTs R79.89 Additional Codes MONA-7 Assessment Billing - MONA-7 Assessment Tool: MONA-7 Assessment 07734 ([id number]) PHQ-9 - 43684 - PHQ-9 Billing: Yes ([id number]) Assessment & Plan Assessment & Plan (1) Hypothyroid: Code(s): E03.9 - Hypothyroidism, unspecified Category: Medical Plan: Continue levothyroxine (2) Diastolic CHF: Comment: Echo 2020 nl EF Code(s): I50.30 - Unspecified diastolic (congestive) heart failure Category: Medical Qualifiers: Heart failure chronicity: acute on chronic Qualified Code(s): I50.33 - Acute on chronic diastolic (congestive) heart failure Plan: Follow-up with the Cardiology, continue current medications (3) Orthostatic hypotension dysautonomic syndrome: Code(s): G90.3 - Multi-system degeneration of the autonomic nervous system Category: Medical Plan: Follow-up with the Cardiology continue current medications (4) Dysphagia: Comment: EGD at [facility] 2020, negative bx, barium swallow: severe esophageal dysmotility, Code(s): R13.10 - Dysphagia, unspecified Category: Medical Plan: Follow-up with GI (5) Elevated LFTs: Comment: Started on Ursodiol by GI Code(s): R79.89 - Other specified abnormal findings of blood chemistry Category: Medical Plan: Monitor LFT Orders: Orders Comprehensive [place]. Panel Fast 07/15/25 E03.9 - Hypothyroidism, unspecified, E78.5 - Hyperlipidemia, unspecified, J44.9 - Chronic obstructive pulmonary disease, unspecified, Z00.00 - Encounter for general adult medical examination without abnormal findings Lipid Panel 07/15/25 E03.9 - Hypothyroidism, unspecified, E78.5 - Hyperlipidemia, unspecified, J44.9 - Chronic obstructive pulmonary disease, unspecified, Z00.00 - Encounter for general adult medical examination without ab normal findings Complete Blood Count Auto Diff 07/15/25 E03.9 - Hypothyroidism, unspecified, E78.5 - Hyperlipidemia, unspecified, J44.9 - Chronic obstructive pulmonary disea se, unspecified, Z00.00 - Encounter for general adult medical examination without abnormal findings TSH reflex Free T4 07/15/25 E03.9 - Hypothyroidism, unspecified, E78.5 - Hyperlipidemia, unspecified, J44.9 - Chronic obstructive pulmonary disease, unspecified, Z00.00 - Encounter for general adult medical examination without abnormal findings Vitamin B12 and Folate 07/15/25 E03.9 - Hypothyroidism, unspecified, E78.5 - Hyperlipidemia, unspecified, J44.9 - Chronic obstructive pulmonary disease, unspecified, Z00.00 - Encounter for general adult medical examination without abnormal findings Hemoglobin A1c 07/15/25 E03.9 - Hypothyroidism, unspecified, E78.5 - Hyperlipidemia, unspecified, J44.9 - Chronic obstructive pulmonary disease, unspecified, Z00.00 - Encounter for general adult medical examination without abnormal findings
--- OUTSIDE RECORDS SUMMARY | 2024-10-16 14:41 | XMS_ITS ---
[facility] Address [address] [place] [address] Care Team Providers Care Tube Cleaner Name Role Phone Celestina Zimmerman MD Primary Care Provider Alba Mir Unavailable [phone] Allergies Allergen (clinical drug ingredient) Drug/Non Drug [...] ONCE DAILY Oral for 5 Not-Taking Nystatin 379841 UNIT/ML Mouth/Throat for 10 Not-Taking Clopidogrel Bisulfate [...] 024 Encounters Encounter Location Date [facility] [address] [place] [address] 11/15/2023 Alba Perica Tinea unguium B35.1 ; [...] Next Appt Details Follow Up: prn, Reason: Procedure Notes * Category Sub-Category Detail Notes [...] as necessary. Patient chooses, no pharmaceutical tx (30728) Progress Notes * Sana DE JESUS ADOB:1950 (73 yo F)Acc No.[id number]:11/15/2023 Progress Note Patient:?Sana De Jesus Provider:?Alba Caal DPM :1950???Age:73 Y???Sex:Female D ate:11/15/2023 Address:[place] [address], [facility] Pcp:Celestina Zimmerman MD Subjective: * Chief Complaints: [...] Surgical History:?hysterecto my * Hospitalization/Major Diagno stic Procedure:?C- CHF, respiratory issues 09/2022 * Family History:?Mother: [...] TABLET BY MOUTH ONCE DAILY Oral Nystatin 777758 UNIT/ML Suspension Mouth/Throat Not- Taking/PRN Doxycycline Monohydrate [...] BY MOUTH ONCE DAILY Oral Not-Taking/PRN Nystatin 248928 UNIT/ML Suspension Mouth/Throat UnknownDicyclomine HCl 20 MG [...] as necessary. Patient chooses, no pharmaceutical tx (97476).? * Procedure Codes:?65843 QUE CHEATHAM, 1-5 * Follow Up:?prn * Images: * Sign off status: Completed true * Provider:?Alba Caal, TRACY Date:? Generated for Yamil carlton/Luc/eTyakovsmfrankie on:?10/16/2024 02:40 PM EDT History and Physical Notes * HPI (History [...]
--- OUTSIDE RECORDS SUMMARY | 2024-10-16 14:41 | XMS_ITS | Patient Health Record ---
Author Organization [facility] [place] Address [address] [facility] [place] [address] Care Team Providers Care Legal Service Specialist Name Role Phone Celestina Zimmerman MD Primary Care Provider Alba Mir Unavailable [phone] Allergies Allergen (clinical drug ingredient) Drug/Non Drug Allergy documented on EMR Reaction Allergy Type Onset Date Status Substance with sulfonamide structure and antibacterial mechanism of action (substance) Sulfa Antibiotics Unknown Drug Allergy Active Reason For Referral No Information Medications Medication SIG (Take, Route, Frequency, Duration) Notes Start Date End Date Status Furosemide 40 MG TAKE 2 TABLETS BY MOUTH ONCE DAILY Oral for 90 Active busPIRone HCl 15 MG TAKE 1 TABLET BY CHAY TH AT BEDTIME FOR 2 WEEKS AND THEN TAKE 1 TABLET TWICE DAILY Oral for 37 Active Fluconazole 100 MG 1 tablet Orally sebas y for 5 days 01/15/2023 Active Doxycycline Monohydrate 100 MG 1 capsule Orally Once a day for 10 days 01/06/2023 Not-Taking oxyBUTYnin Chloride 5 MG Oral for 90 Active traZODone HCl 50 MG TAKE 1 TABLET BY CHAY TH AT BEDTIME Oral for 90 Active Albuterol Sulfate (2.5 MG/3ML) 0.083% 3 ml as needed Inhalation every 6 hrs Active Montelukast Sodium 10 MG Oral for 90 Active Lidocaine Viscous HCl 2 % Mouth/Throat for 3 Not-Taking Fluconazole 100 MG TAKE 1 TABLET BY CHAY TH ONCE DAILY Oral for 5 Not-Taking Atorvastatin Calcium 10 MG TAKE 1 TABLET BY MOUTH ONCE DAILY Oral for 90 Not-Takin g Clopidogrel Bisulfate 75 MG TAKE 1 TABLET BY MOUTH ONCE DAILY Oral for 90 Not-Takin g Mupirocin 2 % APPLY OINTMENT DAILY TO BIOPSY SITE ON RIGHT THIGH AND COVER WITH A BANDAID UNTIL HEALED External for 30 Not-Takin g SUMAtriptan Succinate 100 MG TAKE 1 TABLET BY MOUTH EVERY 2 HOURS NEEDED FOR MIGRAINE, NOT TO EXCEED 200MG PER DAY Oral for 23 Not-Taking Estradiol 0.1 MG/24HR APPLY 1 PATCH TOPICALLY ON MONDAYS AND THURSDAYS Transdermal for 28 Not-Taking Ketoconazole 2 % APPLY CREAM TO FEET TWICE DAILY FOR 3 WEEKS, REPEAT NEEDED External for 30 Not-Takin g Dicyclomine HCl 20 MG TAKE 1 TABLET BY M OUTH 4 TIMES DAILY Oral for 30 Unknown Omeprazole 40 MG Oral for 90 A ctive Nystatin 085683 UNIT/ML Mouth/Throat for 10 Not-Taking hydrALAZINE HCl 25 MG TAKE 1 TABLET [...] 600 MG TAKE 1 TABLET BY CHAY 4 TIMES DAILY Oral for 90 Active Social History [...] Risk Notes Problem Chronic ulcer of foot (077426109) Non-pressure chronic ulcer of other part of left foot with fat layer exposed (L97.522) Active confirmed Problem 73815350 Non-pressure ulcer of left lower extremity, limited to breakdown of skin (L97.921) Active confirmed Problem 996619125 Hammer toe of left foot (M20.42) Active confirmed Problem 46063099 Non-pressure ulcer of left lower extremity with fat layer exposed (L97.922) Active confirmed Problem 87880761 Non-pressure ulcer of right lower extremity with fat layer exposed (L97.912) Active confirmed Vital Signs Blood pressure diastolic 55 mm Hg 09/28/2024 Height 5ft5in in 09/28/2024 Blood pressure systolic 120 mm Hg 09/28/2024 Weight 185 lbs 09/28/2024 BMI 30.78 kg/m2 09/28/2024 Encounters Encounter Location Date Provider Diagnosis [facility] [address] 11/15/2023 Alba Perica Tinea unguium B35.1 ; Pain in left foot M79.672 and Pain in right toe(s) M79.[address] [facility] [address] 09/28/2024 Alba Perica Ingrown nail L60.0 Assessments Encounter Date Diagnosis (ICD Code) Assessment Notes Treatment Notes Treatment Clinical Notes Section Notes 11/15/2023 Tinea unguium (ICD-10 - B35.1) 09/28/2024 Ingrown nail (ICD-10 - L60.0) 11/15/2023 Pain in left foot (ICD-10 - M79.672) 11/15/2023 Pain in right toe(s) (ICD-10 - M79.674) Plan Of Treatment Pending Test Test Name Order Date [id number]-VETPDEO SKIN/TISSUE 01/06/2023 Insurance Providers Payer Name Payer Address Payer Phone Subscriber Number Group Number Insured Name Patient Relationship to Insured Coverage Start Date Coverage End Date Medicare [employer] [address] [place] [address] [id number] Sana Mireles Self - patient is the insured [employer] [address] [place] [address] [id number] Sana Mireles Self - patient is the insured Medical (General) History Medical History History ICD Code Anxiety Cancer Measles Mumps Chicken pox Headaches/Migraines High blood pressure Psychiatric disorder Celiac disease Surgical History Surgery Date(Month/Year) hysterectomy Hospitalization History Reason Date(Month/Year) C- CHF, respiratory issues 09/2022
--- OUTSIDE RECORDS SUMMARY | 2024-10-16 14:41 | XMS_ITS ---
Author Organization [facility] Address [address] [facility] [place] [address] Care Team Providers Care Emergency Room Nurse Name Role Phone Celestina Zimmerman MD Primary Care Provider Alba Mir Unavailable [phone] Allergies Allergen (clinical drug ingredient) Drug/Non Drug Allergy documented on EMR Reaction Allergy Type Onset Date Status Substance with sulfonamide structure and antibacterial mechanism of action (substance) Sulfa Antibiotics Unknown Drug Allergy Active REASON FOR VISIT Ingrown nail(s) Medications Medication SIG (Take, Route, Frequency, Duration) Notes Start Date End Date Status Fluconazole 100 MG 1 tablet Orally sebas y for 5 days 01/15/2023 Active Doxycycline Monohydrate 100 MG 1 capsule Orally Once a day for 10 days 01/06/2023 Not-Taking Mupirocin 2 % APPLY OINTMENT DAILY TO BIOPSY SITE ON RIGHT THIGH AND COVER WITH A BANDAID UNTIL HEALED External for 30 Not-Takin g Estradiol 0.1 MG/24HR APPLY 1 PATCH TOPICALLY ON MONDAYS AND THURSDAYS Transdermal for 28 Not-Taking Ketoconazole 2 % APPLY CREAM TO FEET TWICE DAILY FOR 3 WEEKS, REPEAT NEEDED External for 30 Not-Takin g Furosemide 40 MG TAKE 2 TABLETS BY [...] 1 MG Oral for 90 Act madeleine Omeprazole 40 MG Oral for 90 A ctive Labetalol HCl 100 MG TAKE 1 TABLET [...] TABLET TWICE DAILY Oral for 37 Active oxyBUTYnin Chloride 5 MG Oral for 90 Active traZODone HCl 50 MG TAKE 1 TABLET BY CHAY TH AT BEDTIME Oral for 90 Active Albuterol Sulfate (2.5 MG/3ML) 0.083% 3 ml as needed Inhalation every 6 hrs Active Montelukast Sodium 10 MG Oral for 90 Active Dicyclomine HCl 20 MG TAKE 1 TABLET BY M OUTH 4 TIMES DAILY Oral for 30 Unknown Nystatin 066815 UNIT/ML Mouth/Throat for 10 Not-Taking Lidocaine Viscous HCl 2 % Mouth/Throat for 3 Not-Taking Fluconazole 100 MG TAKE 1 TABLET BY CHAY TH ONCE DAILY Oral for 5 Not-Taking Clopidogrel Bisulfate 75 MG TAKE 1 TABLET BY MOUTH ONCE DAILY Oral for 90 Not-Takin g Atorvastatin Calcium 10 MG TAKE 1 TABLET BY MOUTH ONCE DAILY Oral for 90 Not-Takin g SUMAtriptan Succinate 100 MG TAKE 1 TABLET BY MOUTH EVERY 2 HOURS NEEDED FOR MIGRAINE, NOT TO EXCEED 200MG PER DAY Oral for 23 Not-Taking Social History Tobacco Use: Social History Observation Description Date Details (start date - stop date) Never Smoker NA - NA Tobacco Use/Smoking Question Answer Notes Are you a: nonsmoker Additional Findings: Tobacco Non-User Current no n-smoker Tobacco use other than smoking: Question Answer Notes Are you an other tobacco user? No Vital Signs Height 5ft5in in 09/28/2024 Weight 185 lbs 09/28/2024 BMI 30.78 kg/m2 09/28/2024 Blood pressure systolic 120 mm Hg 09/28/19 25 Blood pressure diastolic 55 mm Hg 025 Encounters Encounter Location Date Provider Diagnosis [facility] [place] [address] [place] [address] 09/28/2024 Alba Caal Ingrown nail L60.0 Assessments Encounter Date Diagnosis (ICD Code) Assessment Notes Treatment Notes Treatment Clinical Notes Section Notes 09/28/2024 Ingrown nail (ICD-10 - L60.0) Plan Of Treatment Next Appt Details Follow Up: prn, Reason: Progress Notes * Sana DE JESUS ADOB:1950 (73 yo F)Acc No.[id number]:09/28/2024 Progress Note Patient:Sana BILLINGS Provider:?Alba Caal DPM :1950???Age:73 Y???Sex:Female D ate:09/28/2024 Address:[place] [address], [id number] Pcp:Celestina Zimmerman MD Subjective: * Chief Complaints: * ???Ingrown nail(s) * HPI: ???Ingrown toenail:?Location:?Great toe, Both feet.?Duration:?several weeks.?Course:?improved.?Treatments:?soaks, previous PNA.? * ROS:?General/Constitutional:?Nausea?denies.?Vomiting?denies.?Hunger Thirst?denies.?Loss appetite?denies.?Chills?denies.?Fatigue?denies.?Fever?denies.?Night Sweats?denies.?Unexplained weight loss?denies.?Unexplained [...] Surgical History:?hysterecto my * Hospitalization/Major Diagno stic Procedure:?[facility] [place]- CHF, respiratory issues 09/2022 * Family History:?Mother: dece ased.?Father: , kidney/liver disease, poor circulation, high blood pressure, heart attack.? * Social History:?Tobacco Use:?Tobacco Use/Smoking?Are you a:?nonsmoker ?Additional Findings: Tobacco Non-User?Current non-smoker ?Tobacco use other than smoking?Are you an other tobacco user??No ???Miscellaneous:?Caffeine: yes, 1-2 cups per day. ?Children: yes. ?Exercise: yes, walking, [employer], balance class. ?Marital status: . 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 * Medications:?TakingAlbuterol Sulfate (2.5 MG/3ML) 0.083% Nebulization Solution 3 ml as needed Inhalation every 6 hrs Montelukast Sodium 10 MG Tablet Oral oxyBUTYnin Chloride [...] Fluconazole 100 MG Tablet 1 tablet Orally daily Taking Albuterol Sulfate (2.5 MG/3ML) 0.083% Nebulization Solution 3 ml as needed Inhalation every 6 hrs Taking Montelukast Sodium 10 MG Tablet Oral Taking [...] Fluconazole 100 MG Tablet 1 tablet Orally daily Not-Taking/PRNDoxycycline Monohydrate 100 MG Capsule 1 capsule Orally Once a day Estradiol 0.1 MG/24HR Patch Twice Weekly APPLY [...] TABLET BY MOUTH ONCE DAILY Oral Nystatin 646051 UNIT/ML Suspension Mouth/Throat Not-Taking/PRN Doxycycline Monohydrate 100 MG Capsule 1 capsule Orally Once a day Not-Taking/PRN Estradiol 0.1 MG/24HR Patch Twice Weekly APPLY 1 PATCH TOPICALLY ON MONDAYS AND THURSDAYS Transdermal Not-Taking/PRN Ketoconazole 2 % Cream APPLY CREAM TO FEET TWICE DAILY FOR 3 WEEKS, REPEAT NEEDED External Not- Taking/PRN Mupirocin 2 % Ointment APPLY OINTMENT DAILY [...] BY MOUTH ONCE DAILY Oral Not-Taking/PRN Nystatin 579508 UNIT/ML Suspension Mouth/Throat UnknownDicyclomine HCl 20 MG Tablet TAKE 1 TABLET BY MOUTH 4 TIMES DAILY Oral Medication List reviewed and reconciled with the patientUnknown Dicyclomine HCl 20 MG Tablet TAKE 1 TABLET BY MOUTH 4 TIMES DAILY Oral Medication List reviewed and reconciled with the patient * Allergies:?Sulfa Antibiotics yes[Allergies Verified] Objective: * Vitals:?Ht: 5ft5in, Wt:185, BMI:30.78, Shoe size: 8.5-9, BP:120/55mm Hg, Ht-cm: 165.1 cm, Wt-k.92 kg. * Examination: ???General Examination: ?GENERAL APPEARANCE:?Reveals a pleasant, alert, well nourished, well- developed, well hydrated individual, who demonstrates proper attention to hygiene/body habitus, and is in no acute distress, Pt serves as own historian for office visit today.?ORIENTED:?person, place, and time.?Vascular: ?DP PULSES (B):?3/4, B/L.?PT PULSES (B):?3/4, B/L.?CAPILLARY FILL TIME:?immediate, all digits, B/L.?TROPHIC CONDITION-TEXTURE/ELASTICITY/TURGOR/HAIR GROWTH (B):?normal, B/L.?Neurological: ?SENSORY:?Neurological exam reveals intact sensorium, pain sensation normal, vibration sensation intact, pinprick sensation is normal in the lower extremities, Pt denies, anesthesia, burning, paresthesia, tingling, B/L.?Ingrown Nail: ?INSPECTION:?NO signs of ,nail incurvation, no pain on palpation, Bilateral nail borders, TA, T5.? Assessment: * Assessment: 1.?Ingrown nail - L60.0 (Tania alaniz)??? Plan: * Treatment: * Procedure Codes:? * Preventive Medicine:? ??Counseling:?Discussion:?-13: Office or other outpatient visit for the evaluation and management of an established patient, which required a medically appropriate history and/or examination and LOW level of DECISION MAKING for: 1 STABLE ACUTE UNCOMPLICATED PROBLEM, 2 OR MORE MINOR PROBLEMS, OR 1 STABLE CHRONIC PROBLEM, THAT POSE(S) A LOW RISK FOR MORBIDITY/MORTALITY. The visit on the day of the encounter encompassed interpreting the data and educating the patient as to the nature of their condition, treatment options available according to their individual PMH, meds, allergies, and overall health/living conditions, as well as any potential risks or complications that may occur from a failure to adhere to, and participate in, the recommended course of therapy. The discussion included a complete verbal, and/or written explanation of the examination results, any x-rays taken, the proposed diagnosis, and outline of the treatment plan. A schedule for future care needs was also explained. The patient verbalized an understanding of the instructions at this time and agreed to be an active participant in their treatment. If the patient should think of any questions or concerns after the visit, I have encouraged the patient to call the office.?Abscess/Paraonychia/Ingrown Nails:?We discussed the possible etiologies (genetic, improper nail care, shoe gear, nail trauma) which may lead to ingrown nails and/or paronychial infections. We discussed and reviewed palliative/nonsurgical/deferring definitive treatment (vs) undergoing the treatment procedures of nail avulsion(s) or PNA, which may prevent recurrence and give more lasting results. The possible risks/complications such as worsened condition/delayed healing/nonhealing/failure/recurrence/infection, the potential benefits/advantages of decreased pain/deformity, as well as alterative treatment options including applying nail softening agents/nail groove packing were discussed. No guarantees were given regarding any outcome for any procedure. The patient was educated in the length of time for the affected nail to regrow once completely healed from a nail avulsion procedure. Once the condition has completely healed, the patient was consulted on proper nail care. Patient questions such as details of each procedure, varying time to heal, activity post procedure, and shoe gear were discussed and the answers were verbally confirmed fully understood.? * Follow Up:?prn * Images: * Sign off status: Completed true * Provider:?Alba Caal DPM Date:? Generated for Yamil carlton/Luc/Jonnathan on:?10/16/2024 02:40 PM EDT History and Physical Notes * HPI (History of Present Illness) Category Sub-Category Detail Notes Category Not es Ingrown toenail Duration: several weeks Location: Great toe, Both feet Treatments: soaks, previous PNA Course: improved Examination Category Sub-Category Detail Notes Category Not es Ingrown Nail INSPECTION: NO signs of ,lurdes l incurvation, no pain on palpation, Bilateral nail borders, TA, T5 Neurological SENSORY: Neurological exa m reveals intact sensorium, pain sensation normal, vibration sensation intact, pinprick sensation is normal in the lower extremities, Pt denies, anesthesia, burning, paresthesia, tingling, B/L General Examination GENERAL APPEARANCE: Reveals a pleasant, alert, well nourished, well-developed, well hydrated individual, who demonstrates proper attention to hygiene/body habitus, and is in no acute distress, Pt serves as own historian for office visit today ORIENTED: person, place, and t dewayne Vascular DP PULSES (B): 3/4, B/L PT PULSES (B): 3/4, B/L CAPILLARY FILL TIME: immediate, all digi ts, B/L TROPHIC CONDITION-TEXTURE/EL ASTICITY/TURGOR/HAIR GROWTH (B): normal, B/L
--- OUTSIDE RECORDS SUMMARY | 2024-10-16 14:41 | XMS_ITS ---
Author Organization [facility] on Care Team Providers Care General Adjuster Name Role Phone Aggie Lloyd Rebecca Unavailable Unavailable Allergies and adverse reactions Code CodeSystem Substance Reaction Severity StartDate Concern Status 518961129 SNOMED CT Sulfa Antibiotics Moderate 2 active Gluten Unknown 02/14/2022 active Care Team Name Role Address Phone Organization Dates Aggie Lloyd PCP [address] [place] [address], [id number], [facility] (Office): : [facility] [place] 02/14/2022 - 03/09/2022 Amelia Hager Attending Physician [address] [place] [address], [address], [place] (Office): : [facility] 02/14/2022 - 03/09/2022 Immunizations Immunization Status Vaccine Details Vaccine Code CodeSystem Philip e Notes SARS-COV-2 (COVID-19) completed SARS-COV-2 (COVID-19) vaccine, mRNA, spike protein, LNP, preservative free, 100 mcg/0.5mL dose or 50 mcg/0.25mL dose Mfg: Moderna Step 2 of Multi-step with next step required 207 CVX created date: 02/15/2022 administered date: 11/04/2020 SARS-COV-2 (COVID-19) completed SARS-COV-2 (COVID-19) vaccine, mRNA, spike protein, LNP, preservative free, 100 mcg/0.5mL dose or 50 mcg/0.25mL dose Mfg: Moderna Step 1 of Multi-step with next step required 207 CVX created date: 02/15/2022 administered date: 10/16/2020 SARS-COV-2 (COVID-19 BOOSTER) completed SARS-COV-2 (COVID-19) vaccine, mRNA, spike protein, LNP, preservative free, 100 mcg/0.5mL dose or 50 mcg/0.25mL dose Mfg: Moderna 207 CVX created date: 02/15/2022 administered date: 11/27/2021 SARS-COV-2 (COVID-19 BOOSTER) completed SARS-COV-2 (COVID-19) vaccine, mRNA, spike protein, LNP, preservative free, 100 mcg/0.5mL dose or 50 mcg/0.25mL dose Mfg: Moderna 207 CVX created date: 02/15/2022 administered date: 05/22/2021 Mental Status Section Date Assessment Total Score Description 03/09/2022 BIMS 12 moderate cognit madeleine impairment CAM 0 No delirium ind icated PHQ-9 01 minimal depress ion 02/20/2022 BIMS 12 moderate cognit madeleine impairment CAM 0 No delirium ind icated PHQ-9 02 minimal depress ion Problems Problem # Description Date of onset Resolved Date Code CodeSystem Concern Status 1 URINARY TRACT INFECTION, SITE NOT SPECIFIED 03/07/[address] active 2 ANXIETY DISORDER, UNSPECIFIED 02/15/[address] active 3 ATHEROSCLEROTIC HEART DISEASE OF [place] CORONARY ARTERY WITHOUT ANGINA PECTORIS 02/15/[address] active 4 CHRONIC OBSTRUCTIVE PULMONARY DISEASE, UNSPECIFIED 02/15/[address] active 5 ESSENTIAL (PRIMARY) HYPERTENSION 02/15/[address] active 6 HYPOTHYROIDISM, UNSPECIFIED 02/15/[address] active 7 IRRITABLE BOWEL SYNDROME, UNSPECIFIED 02/15/[address] active 8 POST-TRAUMATIC STRESS DISORDER, UNSPECIFIED 02/15/[address] active 9 RETENTION OF URINE, UNSPECIFIED 02/15/[address] active 10 UNSPECIFIED FRACTURE OF RIGHT PUBIS, SUBSEQUENT ENCOUNTER FOR FRACTURE WITH ROUTINE HEALING 02/15/[address] active 11 UNSPECIFIED FRACTURE OF SACRUM, SUBSEQUENT ENCOUNTER FOR FRACTURE WITH ROUTINE HEALING 02/15/[address] active Reason for Referral No Reasons for Referral Entered Social History Social History Observation Description Start Date End Date Code Code System Current Smoking Status Tobacco smoking consumption unknown 528966297 SNOMED CT Sex Assigned At Female 1950 31712-6 [facility] Vital Signs Code Code System Vitals Name Values and Units Timing Information 77674-9 [facility] Pain Level Value=0.0 03/09/2022 9279-1 [facility] Respiratory Rate Value=18.0 Units=/m in 03/07/2022 8462-4 [facility] Blood Pressure-Diastolic Value=63 Un its=mmHg 03/07/2022 8480-6 [facility] Blood Pressure-Systolic Ztywf=970 Un its=mmHg 03/07/2022 8310-5 [facility] Body Temperature Value=97.3 Units=?? F 03/07/2022 8867-4 [facility] Heart rate Value=71.0 Units=/min 01/2022 18818-3 [facility] O2 % BldC Oximetry Value=96.0 Units= % 03/07/2022 78861-4 [facility] Weight Utbua=672.2 Units=Lbs 8302-2 [facility] Height Value=64.0 Units=Inches 02/14/2022
== END 2024-10-16 13:32 | disposition home or self-care (01) ==
LOC: HO.HMCC 12:25
PROVIDERS: PCP Internal Medicine; Visit Provider Internal Medicine
DX: E03.9 Hypothyroidism, unspecified (principal); I50.33 Acute on chronic diastolic (congestive) heart failure; G90.3 Multi-system degeneration of the autonomic nervous system; R13.10 Dysphagia, unspecified; R79.89 Other specified abnormal findings of blood chemistry

== ENCOUNTER → 2024-10-16 12:25 | Outpatient (BNVA) | payer MEDICARE, SELFPAY | PROVIDERS: PCP Internal Medicine; Visit Provider Internal Medicine | DX: E03.9 Hypothyroidism, unspecified (principal); I50.33 Acute on chronic diastolic (congestive) heart failure; R13.10 Dysphagia, unspecified; R79.89 Other specified abnormal findings of blood chemistry; G90.3 Multi-system degeneration of the autonomic nervous system | CPT/HCPCS: 96127; 99212 ==

== ENCOUNTER 2024-10-18 13:45 | Outpatient (REF) | payer MEDICARE, SELFPAY ==
--- NOTE | ~2024-10-18 | MM_ITS ---
EXAMINATION: DXA BONE DENSITY AXIAL HISTORY: Estrogen deficiency TECHNIQUE: [employer] Mobile Dual energy absorptiometry (DEXA) of the lumbar spine, total left hip, and femoral neck was performed. COMPARISON: Comparison is made with the prior examination dated 06/23/2022. FINDINGS: The bone mineral density of the lumbar spine is 1.191 with a T-score of 0.1, and a Z-score of 1.2. This is indicative of normal bone mineral density. This represents a BMD change of -4.0% compared to the prior exam. This is statistically significant. The bone mineral density of the left total hip is 0.913 with a T-score of -0.8, and a Z-score of 0.4. This is indicative of normal bone mineral density. This represents a BMD change of -1.0% compared to the prior exam. This is not statistically significant. The bone mineral density of the left femoral neck is 0.856 with a T-score of -1.3, and a Z-score of 0.1. This is indicative of osteopenia. This represents a BMD change of 1.4% compared to the prior exam. FRACTURE RISK: The FRAX index suggests a ten year probability of major osteoporotic fracture of 15.1%, and of hip fracture 2.1%. MM/XR DEXA axial skeleton IMPRESSION: Based on bone mineral density, and according to World Health Organization (WHO) criteria, the diagnosis is consistent with osteopenia. All bone density values are in grams per centimeter squared (g/cm2). Statistically, 68% of repeat scans fall within 1 SD (+/- 0.010 g/cm2 for AP spine L1-L4) and 1 SD (+/- 0.012 g/cm2 for femur total) FRAX is a trademark of the [employer] [employer], a World Health Organization (WHO) Collaborating Center. Electronically signed by: Judson Patel MD 10/18/2024 02:36 PM EDT
--- OUTSIDE RECORDS SUMMARY | 2024-10-18 16:25 | XMS_ITS ---
[facility] Address [address] [place] [address] Care Team Providers Care Sizing End Bander Name Role Phone Celestina Zimmerman MD Primary Care Provider Alba Mir Unavailable [phone] Allergies Allergen (clinical drug ingredient) Drug/Non Drug [...] ONCE DAILY Oral for 5 Not-Taking Nystatin 662055 UNIT/ML Mouth/Throat for 10 Not-Taking Clopidogrel Bisulfate [...] 024 Encounters Encounter Location Date [facility] [address] [place] [address] 11/15/2023 Alba Perica Tinea unguium B35.1 ; [...] as necessary. Patient chooses, no pharmaceutical tx (55530) Progress Notes * Sana DE JESUS ADOB:1950 (73 yo F)Acc No.[id number]:11/15/2023 Progress Note Patient:?Sana De Jesus Provider:?Alba Caal DPM :1950???Age:73 Y???Sex:Female D ate:11/15/2023 Address:[address] [place] [address], [place] Pcp:Celestina Zimmerman MD Subjective: * Chief Complaints: [...] TABLET BY MOUTH ONCE DAILY Oral Nystatin 664660 UNIT/ML Suspension Mouth/Throat Not- Taking/PRN Doxycycline Monohydrate [...] BY MOUTH ONCE DAILY Oral Not-Taking/PRN Nystatin 608122 UNIT/ML Suspension Mouth/Throat UnknownDicyclomine HCl 20 MG [...] as necessary. Patient chooses, no pharmaceutical tx (82451).? * Procedure Codes:?78869 QUE CHEATHAM, 1-5 * Follow Up:?prn * Images: * Sign off status: Completed true * Provider:?Alba Caal, TRACY Date:? Generated for Yamil carlton/Luc/eTyakovsmfrankie on:?10/18/2024 04:25 PM EDT History and Physical Notes * [...]
--- OUTSIDE RECORDS SUMMARY | 2024-10-18 16:25 | XMS_ITS ---
Author Organization [facility] Address [address] [facility] [place] [address] Care Team Providers Care Lead Technician Name Role Phone Celestina Zimmerman MD Primary Care Provider Alba Mir Unavailable [phone] Allergies Allergen (clinical drug ingredient) Drug/Non Drug [...] TIMES DAILY Oral for 30 Unknown Nystatin 649161 UNIT/ML Mouth/Throat for 10 Not-Taking Lidocaine Viscous [...] 025 Encounters Encounter Location Date Provider Diagnosis [facility] [place] [address] [place] [address] 09/28/2024 Alba Caal Ingrown nail L60.0 Assessments Encounter Date Diagnosis (ICD Code) Assessment Notes Treatment Notes Treatment Clinical Notes Section Notes 09/28/2024 Ingrown nail (ICD-10 - L60.0) Plan Of Treatment Next Appt Details Follow Up: prn, Reason: Progress Notes * Sana DE JESUS ADOB:1950 (73 yo F)Acc No.[id number]:09/28/2024 Progress Note Patient:Sana BILLINGS Provider:?Alba Caal DPM :1950???Age:73 Y???Sex:Female D ate:09/28/2024 Address:[address] [address], [id number] Pcp:Celestina Zimmerman MD Subjective: * Chief Complaints: [...] Surgical History:?hysterecto my * Hospitalization/Major Diagno stic Procedure:?[facility] [place], respiratory issues 09/2022 * Family History:?Mother: [...] TABLET BY MOUTH ONCE DAILY Oral Nystatin 376530 UNIT/ML Suspension Mouth/Throat Not-Taking/PRN Doxycycline Monohydrate 100 [...] BY MOUTH ONCE DAILY Oral Not-Taking/PRN Nystatin 384947 UNIT/ML Suspension Mouth/Throat UnknownDicyclomine HCl 20 MG [...] Caal DPM Date:? Generated for Yamil carlton/Luc/Jonnathan on:?10/18/2024 04:25 PM EDT History and Physical [...]
--- OUTSIDE RECORDS SUMMARY | 2024-10-18 16:25 | XMS_ITS ---
Author Organization [facility] on Care Team Providers Care Rn Intern Name Role Phone Aggie Lloyd Rebecca Unavailable Unavailable Allergies and adverse reactions Code CodeSystem Substance Reaction Severity StartDate Concern Status 582768738 SNOMED CT Sulfa Antibiotics Moderate 2 active Gluten Unknown 02/14/2022 active Care Team Name Role Address Phone Organization Dates Aggie Lloyd PCP [address] [place] [address], [address], [facility] (Office): : [facility] [place] 02/14/2022 - 03/09/2022 Amelia Hager Attending Physician [address] [place] [address], [address], [place] (Office): : [facility] [place] [facility] 02/14/2022 - 03/09/2022 Immunizations Immunization Status Vaccine [...] URINARY TRACT INFECTION, SITE NOT SPECIFIED 03/07/[address] active 2 ANXIETY DISORDER, UNSPECIFIED 02/15/[address] active 3 ATHEROSCLEROTIC HEART DISEASE OF [place] CORONARY ARTERY WITHOUT ANGINA PECTORIS 02/15/[address] active 4 CHRONIC OBSTRUCTIVE PULMONARY DISEASE, UNSPECIFIED 02/15/[address] active 5 ESSENTIAL (PRIMARY) HYPERTENSION 02/15/[address] active 6 HYPOTHYROIDISM, UNSPECIFIED 02/15/[address] active 7 IRRITABLE BOWEL SYNDROME, UNSPECIFIED 02/15/[address] active 8 POST-TRAUMATIC STRESS DISORDER, UNSPECIFIED 02/15/[address] active 9 RETENTION OF URINE, UNSPECIFIED 02/15/[address] active 10 UNSPECIFIED FRACTURE OF RIGHT PUBIS, SUBSEQUENT ENCOUNTER FOR FRACTURE WITH ROUTINE HEALING 02/15/[address] active 11 UNSPECIFIED FRACTURE OF SACRUM, SUBSEQUENT ENCOUNTER FOR FRACTURE WITH ROUTINE HEALING 02/15/[address] active Reason for Referral No Reasons for Referral Entered Social History Social History Observation Description Start Date End Date Code Code System Current Smoking Status Tobacco smoking consumption unknown 589172881 SNOMED CT Sex Assigned At Female 1950 75175-7 [facility] Vital Signs Code Code System Vitals Name Values and Units Timing Information 76194-6 [facility] Pain Level Value=0.0 03/09/2022 9279-1 [facility] Respiratory Rate Value=18.0 Units=/m in 03/07/2022 8462-4 [facility] Blood Pressure-Diastolic Value=63 Un its=mmHg 03/07/2022 8480-6 [facility] Blood Pressure-Systolic Invgu=239 Un its=mmHg 03/07/2022 8310-5 [facility] Body Temperature Value=97.3 Units=?? F 03/07/2022 8867-4 [facility] Heart rate Value=71.0 Units=/min 01/2022 74184-9 [facility] O2 % BldC Oximetry Value=96.0 Units= % 03/07/2022 21085-9 [facility] Weight Znopr=170.2 Units=Lbs 8302-2 [facility] Height Value=64.0 Units=Inches 02/14/2022
--- OUTSIDE RECORDS SUMMARY | 2024-10-18 16:25 | XMS_ITS | Patient Health Record ---
Author Organization [facility] [place] Address [address] [facility] [address] Care Team Providers Care Children Counselor Name Role Phone Celestina Zimmerman MD Primary Care Provider Alba Mir Unavailable [phone] Allergies Allergen (clinical drug ingredient) Drug/Non Drug [...] MG Oral for 90 A ctive Nystatin 712969 UNIT/ML Mouth/Throat for 10 Not-Taking hydrALAZINE HCl [...] Risk Notes Problem Chronic ulcer of foot (527754107) Non-pressure chronic ulcer of other part of left foot with fat layer exposed (L97.522) Active confirmed Problem 68353502 Non-pressure ulcer of left lower extremity, limited to breakdown of skin (L97.921) Active confirmed Problem 930965034 Hammer toe of left foot (M20.42) Active confirmed Problem 05406539 Non-pressure ulcer of left lower extremity with fat layer exposed (L97.922) Active confirmed Problem 57412290 Non-pressure ulcer of right lower extremity with fat layer exposed (L97.912) Active confirmed Vital Signs Blood pressure diastolic 55 mm Hg 09/28/2024 Height 5ft5in in 09/28/2024 Blood pressure systolic 120 mm Hg 09/28/2024 Weight 185 lbs 09/28/2024 BMI 30.78 kg/m2 09/28/2024 Encounters Encounter Location Date Provider Diagnosis [facility] [address] 11/15/2023 Alba Perica Tinea unguium B35.1 ; Pain in left foot M79.672 and Pain in right toe(s) M79.[address] [facility] [address] 09/28/2024 Alba Perica Ingrown nail L60.0 Assessments Encounter Date Diagnosis (ICD Code) Assessment Notes Treatment Notes Treatment Clinical Notes Section Notes 11/15/2023 Tinea unguium (ICD-10 - B35.1) 09/28/2024 Ingrown nail (ICD-10 - L60.0) 11/15/2023 Pain in left foot (ICD-10 - M79.672) 11/15/2023 Pain in right toe(s) (ICD-10 - M79.674) Plan Of Treatment Pending Test Test Name Order Date [id number] SKIN/TISSUE 01/06/2023 Insurance Providers Payer Name Payer Address Payer Phone Subscriber Number Group Number Insured Name Patient Relationship to Insured Coverage Start Date Coverage End Date Medicare [employer] [address] [facility] [place] [address] [id number] Sana Mireles Self - patient is the insured [employer] [address] [place] [address] [id number] Sana Mireles Self - patient is the insured Medical (General) History Medical History History ICD Code Anxiety Cancer Measles Mumps Chicken pox Headaches/Migraines High blood pressure Psychiatric disorder Celiac disease Surgical History Surgery Date(Month/Year) hysterectomy Hospitalization History Reason Date(Month/Year) C- CHF, respiratory issues 09/2022
== END 2024-10-18 13:46 | disposition home or self-care (01) ==
LOC: HO.MAMMO 13:45
PROVIDERS: PCP Internal Medicine; Visit Provider Internal Medicine
DX: Z12.31 Encounter for screening mammogram for malignant neoplasm of breast (principal); Z13.820 Encounter for screening for osteoporosis; Z78.0 Asymptomatic menopausal state
CPT/HCPCS: 77063; 77067; 77080

== ENCOUNTER → 2024-10-18 14:00 | Outpatient (BNV) | payer MEDICARE, SELFPAY | PROVIDERS: PCP Internal Medicine; Visit Provider Radiology Diagnostic Radiology | DX: E28.39 Other primary ovarian failure (principal) | CPT/HCPCS: 77080 ==

== ENCOUNTER 2024-10-22 09:19 | Outpatient (AMB) | payer MEDICARE, SELFPAY ==
[2024-10-22 09:19] VITALS: BP 126/70; PULSE 59; O2SAT 96; BMI 34.0
--- NOTE | 2024-10-22 09:19 | A.OFFVIS_ITS ---
Vital Signs 10/22/24 09:19 Height 5 ft 3 in Weight 192 lb BMI 34.0 BP 126/70 Blood Pressure Location Rt brachial Position Sitting Pulse 59 Pulse Source Pulse Oximeter Pulse Oximetry (%) 96 Oxygen Delivery Method Room Air Intake Visit Reasons: Gait disturbance Intake Note: Patient referred In-house by Dr. Shields at for postural instability abnormal MRI Allergies gluten [GLUTEN] Allergy (Severe, Verified 10/22/24 09:23) ABD PAIN Sulfa (Sulfonamide Antibiotics) [SULFA(SULFONAMIDE ANTIBIOTICS)] Allergy (Severe, Verified 10/22/24 09:23) Rash mirtazapine Adverse Reaction (Severe, Verified 10/22/24 09:23) peripheral edema HPI Comments Details: 74y/o Right handed female comes for evaluation of postural instability.SHe started having balance and instability 2-3 years ago. she had her first fall 10 years ago- she passed out because of dizziness. she had a concussion , went back to work after 3 months.she had frequent headaches. 3 years ago she had another fall- she was walking up the front steps and fell- in the driveway- she had a fractured pelvis . she recovered after that. Her gait has progressively worse. she had another fall in Jun 2024- she went up the stairs and fell backwards. she denies dizziness. she denies double vision or spinning sensation. she has chronic back pain and neck pain .No back or neck surgery. she also reports progressive cognitive issues- short term memory difficulty, finding words etc. SLeep- good , uses CPAP for sleep apnea. Headaches- the headaches are mostly left temporal- used to be generalized headache, with photophobia, phonophobia , no nausea , can last all day. SHe has headaches almost everyday.she uses heating pad and tylenol sometimes. she has some urinary urgency since her fall 10 years ago [facility] Medical History (Updated 10/22/24 @ 09:54 by Chiqui Marks MD) Headache Cervicalgia Chronic rhinitis Pulmonary nodule Pulmonary nodule Hearing loss Annual physical exam Dysphagia Vocal cord dysfunction Weight gain Edema Urinary incontinence Asthma History of concussion Shortness of breath Lower extremity edema Dyspnea Hypoxemia requiring supplemental oxygen Nonspecific interstitial pneumonitis Peripheral neuropathy Psychiatric disorder Mammogram normal Hyperlipemia Pulmonary hypertension DANIS on CPAP Pneumonitis Orthostatic hypotension dysautonomic syndrome Hypothyroid HTN (hypertension) Celiac disease Diastolic CHF Surgical History Hx of esophagogastroduodenoscopy History of total abdominal hysterectomy and bilateral salpingo-oophorectomy Endometrial adenocarcinoma History of colonoscopy Family History Father [place] cell cancer HTN (hypertension) CVD (cardiovascular disease) Mother Crohn disease Cancer Maternal Grandfather No problems noted. Maternal Grandmother No problems noted. Paternal Grandfather CVD (cardiovascular disease) Paternal Grandmother COPD (chronic obstructive pulmonary disease) Brother No problems noted. Sister No problems noted. Daughter No problems noted. Social History Household Members: Spouse Housing: House Are you a primary care management associate to a significant other at home: No Do you presently have visiting nurse or other home services: No Alcohol intake: current Alcohol intake frequency: holidays/special occasions only Comment: pt resting Patient Tobacco Use Status: Former Tobacco user Tobacco use type: Cigarette Years Smoked: 2 e-Cigarette/Vaping Use: Never Used Second Hand Smoke Exposure: No service: No Current occupational status: retired Cognitive needs: No Hearing needs: Yes Vision needs: Yes Physical Exam Vital Signs: Last Vital Signs Pulse 59 10/22/24 09:19 Pulse Ox 96 10/22/24 09:19 Oxygen Delivery Method Room Air 10/22/24 09:19 BMI result Body Mass Index 34.0 Const General: cooperative and comfortable Nutritional Appearance: overweight Orientation/consciousness: patient oriented x3 Neck Neck: Yes no meningeal signs Neuro Other: Gait- antalgic slow, normal base and stride Neck - tightness General: patient oriented x3, tone normal, moves all extremities, no meningeal signs and no focal motor deficits Gait exam (Neuro): Antalgic gait present Motor exam (neuro): 5/5 motor strength present throughout and Normal motor muscle tone present throughout Deep tendon reflexes (DTR's): Right triceps reflex intensity grade: 3+, Left triceps reflex intensity grade: 3+, Rt Biceps (C5, C6): 3+, Left biceps reflex intensity grade: 3+, Right brachioradialis reflex intensity grade: 3+, Left brachioradialis reflex intensity grade: 3+ and Right patellar reflex intensity grade: 3+ Coordination: [id number] test normal Results Reviewed Results Reviewed: MRI BRain- No evidence of intracranial hemorrhage, acute infarction, mass effect, edema, or abnormal enhancement. 2. Moderate small vessel ischemic changes, minimally progressed. Pattern is not typical for inflammatory demyelination, although cannot be excluded. Callosal septal T2 hyperintensity is present, which can be associated with inflammatory demyelination. 3. There is no posterior fossa abnormality. 4. 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 5. Severe degenerative arthrosis right greater than left TM joints. Assessment & Plan Assessment & Plan (1) Abnormal gait: Code(s): R26.9 - Unspecified abnormalities of gait and mobility Plan: multifactorial - polypharmacy,( gabapentin, lorazepam, trazadone, sertraline ) musculoskeletal, mood disorder etc (2) Cervicalgia: Code(s): M54.2 - Cervicalgia Category: Medical (3) Headache: Code(s): R51.9 - Headache, unspecified Category: Medical Qualifiers: Headache type: cervicogenic headache Qualified Code(s): G44.86 - Cervicogenic headache Plan C spine X ray to evaluate for spondylosis PT for neck myofascial release DEcrease gabapentin to 300mg qhs Decrease lorazepam 1/2 tab as needed will consider tapering trazadone next visit Labs reviewed Continue PT for gait reviewed MRI- will f/u in 1 year F/u with psyhciatry Orders: Orders PT Evaluation and Treatment Today M54.2 - Cervicalgia XR cervical spine 3V Today M54.2 - Cervicalgia Coding Level of Care Code New Pt Level 4 (33024) Complex EM visit Add On G2211 Diagnoses Abnormal gait R26.9 Cervicalgia M54.2 Cervicogenic headache G44.86 Headache type: cervicogenic headache
== END 2024-10-22 10:05 | disposition home or self-care (01) ==
LOC: HO.HSMS 09:20
PROVIDERS: PCP Internal Medicine; Visit Provider Psychiatry & Neurology Neurology
DX: R26.9 Unspecified abnormalities of gait and mobility (principal); M54.2 Cervicalgia; G44.86 Cervicogenic headache
CPT/HCPCS: 99204; G2211

== ENCOUNTER 2024-10-22 09:19 | Outpatient (REF) | payer MEDICARE, SELFPAY ==
--- NOTE | ~2024-10-22 | XR_ITS ---
CLINICAL HISTORY: M54.2 - Cervicalgia Three views of the cervical spine. COMPARISON: None FINDINGS: Normal vertebral body alignment. No evidence of acute vertebral body injury. Normal C1-C2 articulation. Loss of vertebral disc space height within the mid to lower cervical spine with marginal osteophytes and uncovertebral joint hypertrophy. Facet joint arthrosis present throughout the cervical spine. Visualized paravertebral soft tissues and lung apices are unremarkable. IMPRESSION: 1. Moderate to advanced multilevel cervical spondylosis. This document has been electronically signed by: Tye Palacios MD on 10/23/2024 15:14:35
== END 2024-10-22 09:20 | disposition home or self-care (01) ==
LOC: HO.XRAY 09:19
PROVIDERS: PCP Internal Medicine; Visit Provider Psychiatry & Neurology Neurology
DX: M54.2 Cervicalgia (principal); R26.9 Unspecified abnormalities of gait and mobility; G44.86 Cervicogenic headache
CPT/HCPCS: 72040; 99202

== ENCOUNTER → 2024-10-22 10:52 | Outpatient (BNV) | payer MEDICARE, SELFPAY | PROVIDERS: PCP Internal Medicine; Visit Provider Radiology Diagnostic Radiology | DX: M54.2 Cervicalgia (principal) | CPT/HCPCS: 72040 ==

== ENCOUNTER 2024-11-02 14:09 | Emergency (ER) | payer MEDICARE, SELFPAY ==
--- NOTE | ~2024-11-02 | XR_ITS ---
EXAMINATION: XR WRIST, LEFT CLINICAL INFORMATION: pain with rOM COMPARISON: None available. TECHNIQUE: PA, lateral, oblique, and scaphoid views of the left wrist. FINDINGS: No fracture, dislocation, or suspicious bone lesion. Normal bone mineralization. Carpal bones intact and normally aligned. Mild degenerative arthritis at the STT joints and first CMC joint. Soft tissues appear normal. XR/XR wrist LT min 3V IMPRESSION: 1. No acute bony abnormalities. Electronically signed by: Juliano Mead MD 11/02/2024 02:30 PM EDT
[2024-11-02 14:12] VITALS: BP 112/44; PULSE 58; RESP 18; TEMP 36.8; O2SAT 94; BMI 32.7
--- NOTE | 2024-11-02 14:12 | ED_ITS ---
HPI - General Adult General Chief complaint: Extremity Injury, Upper Stated complaint: L Wrist Pain Swelling No Injury Time Seen by Provider: 11/02/24 15:57 Source: patient and family () Mode of arrival: ambulatory Limitations: no limitations History of Present Illness ED Provider: BOB NGUYEN PA-C HPI narrative: 74 year old female with pmhx significant for celiac disease, IBS, dysautonomic syndrome, diastolic HF, DANIS, asthma/ COPD, esophageal dysmotility, schatzki ring, HLD, anxiety, depression presents to the ED today for evaluation of left wrist pain x1 week. She reports hx of severe arthritis in her neck. She saw her PCP for this who eventually referred her to a neurologist. She has a cervical MRI ordered. She reports left wrist pain x1 week. States this was never addressed by outpatient providers. Reports pain primarily along the radial aspect of her wrist. She reports waking up with the pain. Admits to difficulty grasping/ holding objects and intermittent tingling in her fingers. Pain does not appear to travel down her LUE from her neck. She has been trialing Tylenol at home with some relief. Applying lidocaine patches to the area. She is unable to take NSAIDs d/t her celiac disease. Denies hx of CTS. Has never followed with ortho. Denies hx of DM or gout. Denies any injury/ trauma/ falls. Related Data Home Medications ?Medication ?Instructions ?Recorded ?Confirmed sertraline 100 mg tablet 100 mg PO DAILY 05/06/21 10/16/24 gabapentin 300 mg capsule 300 mg PO DAILY 10/16/22 10/16/24 hydralazine 25 mg tablet 75 mg PO BEDTIME 10/16/22 10/16/24 nebulizers 11/08/22 10/16/24 sodium fluoride 1.1 %-potassium PO BEDTIME 11/08/22 10/16/24 nitrate 5 % dental paste ropinirole 0.5 mg tablet 0.5 mg PO BEDTIME 11/22/22 10/16/24 gabapentin 100 mg capsule 100 mg PO TID 07/04/23 10/16/24 trazodone 100 mg tablet 100 mg PO BEDTIME PRN 07/19/23 10/16/24 lorazepam 1 mg tablet 1 mg PO BID 06/08/24 10/16/24 oxybutynin chloride 5 mg mg PO DAILY 10/16/24 10/16/24 tablet,extended release 24 hr Previous Rx's ?Medication ?Instructions ?Recorded compress.stocking,knee,reg,med #2 ea 11/19/20 oxybutynin chloride 5 mg tablet 5 mg PO BEDTIME #90 tabs 01/04/23 montelukast 10 mg tablet 10 mg PO DAILY PRN allergy 06/08/23 (Singulair) symptoms 90 days #90 tabs spironolactone 25 mg tablet 50 mg (2 x 25 mg) PO DAILY #180 12/05/23 tabs prochlorperazine maleate 10 mg 10 mg PO BID PRN nausea and 02/07/24 tablet (Compazine) vomiting #30 tabs budesonide 32 mcg/actuation nasal 1 spray intranasal BID #8.43 mL 04/14/24 spray amlodipine 10 mg tablet 10 mg PO QAM 90 days #90 tabs 04/20/24 levothyroxine 100 mcg tablet 100 mcg PO DAILY #90 tabs 05/23/24 furosemide 40 mg tablet 40 mg PO DAILY #180 tabs 06/27/24 methocarbamol 750 mg tablet 750 mg PO TID PRN pain #10 tabs 07/16/24 ursodiol 500 mg tablet 500 mg PO BID #120 tabs 07/23/24 azelastine 137 mcg (0.1 %) nasal 2 spray intranasal BID 30 days #30 08/22/24 spray mL fluticasone propionate 50 2 spray intranasal DAILY 30 days 08/22/24 mcg/actuation nasal #15.8 mL spray,suspension peg 3350-electrolytes 236 240 ml PO Q10M #4,000 mL 09/03/24 gram-22.74 gram-6.74 gram-5.86 gram solution (Golytely) labetalol 100 mg tablet 100 mg PO BID #180 tabs 09/12/24 hydralazine 25 mg tablet 25 mg PO DIRECTED #360 tabs 09/25/24 omeprazole 40 mg capsule,delayed 40 mg PO BID #180 caps 10/19/24 release Cane #1 ea 10/22/24 Allergies Allergy/AdvReac Type Severity Reaction Status Date / Time gluten [GLUTEN] Allergy Severe ABD PAIN Verified 11/02/24 14:15 Sulfa (Sulfonamide Allergy Severe Rash Verified 11/02/24 14:15 Antibiotics) [SULFA(SULFONAMIDE ANTIBIOTICS)] mirtazapine AdvReac Severe peripheral Verified 11/02/24 14:15 edema Review of Systems Review of Systems: Yes all other systems are reviewed and are negative COUNTS INCLUDE 234 BEDS AT THE [facility] Past Medical History Attestation statement: The following information was validated with the patient. Source: old records reviewed and nursing notes reviewed Medical History Spondylosis, cervical Headache Cervicalgia Chronic rhinitis Pulmonary nodule Pulmonary nodule Hearing loss Annual physical exam Dysphagia Vocal cord dysfunction Weight gain Edema Urinary incontinence Asthma History of concussion Shortness of breath Lower extremity edema Dyspnea Hypoxemia requiring supplemental oxygen Nonspecific interstitial pneumonitis Peripheral neuropathy Psychiatric disorder Mammogram normal Hyperlipemia Pulmonary hypertension DANIS on CPAP Pneumonitis Orthostatic hypotension dysautonomic syndrome Hypothyroid HTN (hypertension) Celiac disease Diastolic CHF Surgical History Hx of esophagogastroduodenoscopy History of total abdominal hysterectomy and bilateral salpingo-oophorectomy Endometrial adenocarcinoma History of colonoscopy Family History Family History Father [place] cell cancer HTN (hypertension) CVD (cardiovascular disease) Mother Crohn disease Cancer Maternal Grandfather No problems noted. Maternal Grandmother No problems noted. Paternal Grandfather CVD (cardiovascular disease) Paternal Grandmother COPD (chronic obstructive pulmonary disease) Brother No problems noted. Sister No problems noted. Daughter No problems noted. Social History Social History Household Members: Spouse Housing: House Are you a primary school child care attendant to a significant other at home: No Do you presently have visiting nurse or other home services: No Alcohol intake: current Alcohol intake frequency: holidays/special occasions only Comment: pt resting Patient Tobacco Use Status: Former Tobacco user Tobacco use type: Cigarette Years Smoked: 2 e-Cigarette/Vaping Use: Never Used Second Hand Smoke Exposure: No Advance Directives: Yes Advance Directives on File: Yes Advance Directives Date on File: 01/26/21 service: No Current occupational status: retired Cognitive needs: No Hearing needs: Yes Vision needs: Yes Physical Exam ED Vital Signs: Vital Signs - 24 hr 11/02/24 14:12 Temperature 98.2 F Pulse Rate 58 Respiratory Rate 18 Blood Pressure 112/44 L Pulse Oximetry 94 Oxygen Delivery Method Room Air BMI result Body Mass Index 32.7 Vital signs stable, afebrile General: Well appearing, in no acute distress. Skin: Warm, dry, intact. No rashes or lesions. Head: Normocephalic, atraumatic. EENT: Hearing is intact b/l. Conjunctiva clear. PERRLA. EOM intact. Moist mucous membranes.? Cardiac: Chest wall symmetric Lungs: Normal respiratory effort without accessory muscle use. CTA bilaterally Back: no midline spinous or step off deformity. Ext: +no noted swelling, erythema or deformity noted to left wrist. FROM intact to left wrist without noted pain. no snuffbox tenderness. slight tenderness to palpation over left thenar eminence. +tinel and phalen. finger strength intact. global sales executive strength on left 4/5. sensation intact. Neuro: AOx3. Normal speech. Ambulating with steady gait. Psych: Appropriate mood and affect. Responds appropriately to questions. Course Course Course Narrative: RME performed by Demetra Lora PA-C. Patient is a 74 year old assigned female at presenting to the emergency department with left wrist pain. Patient states that she has no recent injury but over the last week she has had left wrist pain. Detailed physical exam and review of systems are deferred to the access clinician. Imaging ordered. Patient placed back in the waiting room pending room availability and results. Reevaluation(s) Reevaluation #1: X-ray of left wrist unremarkable. There is no visible fracture. No calcium deposition. No effusion. Her presentation is most consistent with carpal tunnel syndrome v arthritis. Less likely tendonitis. There are no skin changes/swelling to suggest gout, pseudogout. No rashes. No concern for Lyme arthritis or septic joint. I do not feel as though blood work is warranted today. Patient is well-appearing. I provided her with a wrist splint to wear primarily at nighttime. I will provide her with a referral to hand surgeon for further workup if she desires. Patient has remained stable throughout ED visit today. Discussed worrisome signs and symptoms and when to return to the ED. All questions answered at this time. Patient is agreeable with disposition and stable for discharge. Procedures Orthopedic Splinting/Casting Injury #1: Side: left Upper Extremity Injury Location: wrist Upper Extremity Immobilizer: wrist splint Medical Decision Making Medical Decision Making MDM Narrative: 74 year old female with pmhx significant for celiac disease, IBS, dysautonomic syndrome, diastolic HF, DANIS, asthma/ COPD, esophageal dysmotility, schatzki ring, HLD, anxiety, depression presents to the ED today for evaluation of left wrist pain x1 week. vital signs stable. she is nontoxic appearing and in NAD. appears to have a flat affect. on exam of LUE, there is no noted swelling, erythema or deformity noted to left wrist. FROM intact to left wrist without noted pain. no snuffbox tenderness. slight tenderness to palpation over left thenar eminence. positive tinel and phalen. finger strength intact. global sales executive str ength on left 4/5. sensation intact. 2+radial/ulnar pulse intact. Differential diagnosis includes contusion, arthritis, carpal tunnel syndrome, tendonitis. Lower suspicion for fracture. Unlikely gout, pseudogout, septic joint, Lyme arthritis, DVT. Plan for xrays and disposition. Differential Diagnosis Differential Diagnoses: The differential diagnosis associated with the presentation includes as above. Admission/Observation not indicated. Independent Interpretation I performed an independent interpretation of an: Plain X-Ray Interpretation: xr left hand/wrist without fracture Radiology Impression Discussion of test interpretation with radiology: I have reviewed the radiologist's reading. Radiologist Impression: EXAMINATION: XR WRIST, LEFT CLINICAL INFORMATION: pain with rOM COMPARISON: None available. TECHNIQUE: PA, lateral, oblique, and scaphoid views of the left wrist. FINDINGS: No fracture, dislocation, or suspicious bone lesion. Normal bone mineralization. Carpal bones intact and normally aligned. Mild degenerative arthritis at the STT joints and first CMC joint. Soft tissues appear normal. XR/XR wrist LT min 3V IMPRESSION: 1. No acute bony abnormalities. Independent Historian Clinical information obtained from an independent historian. History obtained from or confirmed by: Spouse External Record Review External record reviewed: Inpatient record Prescription Management I considered prescription management with: Pain Medication Social Determinants Patient?s care significantly limited by Social Determinants of Health including: Other Social Determinant of Health Critical Care Time Critical Care Time Critical Care Time: No Discharge Plan Discharge Clinical Impression: Left wrist pain Patient Disposition: Home, Self-Care Instructions: Wrist Injury (ED), Carpal Tunnel Surgery (DC) Additional Instructions: You were evaluated in the ED today for your left wrist pain. Your x-rays are normal. I have suspicion for carpal tunnel syndrome. see home care instructions. Take Tylenol as needed for pain/discomfort. We have provided you with a wrist splint to wear, primarily at night while sleeping. I have provided you with a referred to hand surgery. Call them to establish care, they will not call you. Return with any new or worsening symptoms. In the case of an emergency call 911. Prescriptions: No Action oxybutynin chloride 5 mg tablet 5 mg PO BEDTIME Qty: 90 3RF montelukast [Singulair] 10 mg tablet 10 mg PO DAILY PRN (Reason: allergy symptoms) 90 Days Qty: 90 3RF spironolactone 25 mg tablet 50 mg PO DAILY Qty: 180 3RF prochlorperazine maleate [Compazine] 10 mg tablet 10 mg PO BID PRN (Reason: nausea and vomiting) Qty: 30 0RF amlodipine 10 mg tablet 10 mg PO QAM 90 Days Qty: 90 3RF levothyroxine 100 mcg tablet 100 mcg PO DAILY Qty: 90 2RF furosemide 40 mg tablet 40 mg PO DAILY Qty: 180 1RF ursodiol 500 mg tablet 500 mg PO BID Qty: 120 0RF peg 3350-electrolytes [Golytely] 236-22.74-6.74 -5.86 gram recon soln 240 ml PO Q10M Qty: 4000 0RF Rx Instructions: until fecal effluent is clear labetalol 100 mg tablet 100 mg PO BID Qty: 180 3RF hydralazine 25 mg tablet 25 mg PO DIRECTED Qty: 360 3RF Rx Instructions: Take one tablet by mouth in the AM and 3 tabs at 5 PM daily omeprazole 40 mg capsule,delayed release(DR/EC) 40 mg PO BID Qty: 180 1RF (DME) Cane See Rx Instructions .Route .MEDSUPPLY Qty: 1 0RF Rx Instructions: As directed hydralazine 25 mg tablet 75 mg PO BEDTIME gabapentin 300 mg capsule 300 mg PO DAILY methocarbamol 750 mg tablet 750 mg PO TID PRN (Reason: pain) Qty: 10 0RF sertraline 100 mg tablet 100 mg PO DAILY budesonide 32 mcg/actuation spray,non-aerosol 1 spray intranasal BID Qty: 8.43 0RF Rx Instructions: administer into each nostril (DME) compress.stocking,knee,reg,med Misc See Rx Instructions .ROUTE .MEDSUPPLY Qty: 2 0RF Rx Instructions: apply in the am and remove in the pm ropinirole 0.5 mg tablet 0.5 mg PO BEDTIME (DME) nebulizers Misc See Rx Instructions .Route Rx Instructions: As directed sodium fluoride-pot nitrate 1.1-5 % paste PO BEDTIME gabapentin 100 mg capsule 100 mg PO TID trazodone 100 mg tablet 100 mg PO BEDTIME PRN azelastine 137 mcg (0.1 %) spray,non-aerosol 2 spray intranasal BID 30 Days Qty: 30 6RF Rx Instructions: administer into each nostril fluticasone propionate 50 mcg/actuation spray,suspension 2 spray intranasal DAILY 30 Days Qty: 15.8 11RF lorazepam 1 mg tablet 1 mg PO BID oxybutynin chloride 5 mg tablet extended release 24hr PO DAILY Referrals: Celestina Zimmerman MD [Primary Care Provider] - Rita Lindsey MD [Physician] - Print Language: Grenadian
[2024-11-02 16:46] VITALS: BP 112/44; PULSE 58; RESP 18; TEMP 36.8; O2SAT 94
--- OUTSIDE RECORDS SUMMARY | 2024-11-02 17:01 | XMS_ITS ---
Author Organization [facility] Address [address] [place] [address] Care Team Providers Care Account Resolution Expert Name Role Phone Celestina Zimmerman MD Primary Care Provider Alba Mir Unavailable [phone] Allergies Allergen (clinical drug ingredient) Drug/Non Drug [...] ONCE DAILY Oral for 5 Not-Taking Nystatin 185901 UNIT/ML Mouth/Throat for 10 Not-Taking Clopidogrel Bisulfate [...] 024 Encounters Encounter Location Date [facility] [address] [place] [address] 11/15/2023 Alba Perica Tinea unguium B35.1 ; [...] as necessary. Patient chooses, no pharmaceutical tx (35380) Progress Notes * Sana DE JESUS ADOB:1950 (73 yo F)Acc No.[id number]:11/15/2023 Progress Note Patient:?Sana De Jesus Provider:?Alba Caal DPM :1950???Age:73 Y???Sex:Female D ate:11/15/2023 Address:[place] [address], [facility] Pcp:Celestina Zimmerman MD Subjective: * Chief Complaints: [...] TABLET BY MOUTH ONCE DAILY Oral Nystatin 610925 UNIT/ML Suspension Mouth/Throat Not- Taking/PRN Doxycycline Monohydrate [...] BY MOUTH ONCE DAILY Oral Not-Taking/PRN Nystatin 118760 UNIT/ML Suspension Mouth/Throat UnknownDicyclomine HCl 20 MG [...] as necessary. Patient chooses, no pharmaceutical tx (90484).? * Procedure Codes:?64401 QUE CONNELL NAIL, 1-5 * Follow Up:?prn * Images: * Sign off status: Completed true * Provider:?Alba Caal, TRACY Date:? Generated for Yamil carlton/Luc/eTyakovsmitting on:?11/02/2024 05:01 PM EDT History and Physical Notes * [...]
--- OUTSIDE RECORDS SUMMARY | 2024-11-02 17:02 | XMS_ITS ---
Author Organization [facility] Address [address] [facility] [place] [address] Care Team Providers Care Manager Casino Name Role Phone Celestina Zimmerman MD Primary Care Provider Alba Mir Unavailable [phone] Allergies Allergen (clinical drug ingredient) Drug/Non Drug [...] TIMES DAILY Oral for 30 Unknown Nystatin 149846 UNIT/ML Mouth/Throat for 10 Not-Taking Lidocaine Viscous [...] 025 Encounters Encounter Location Date Provider Diagnosis [facility] [address] [place] [address] 09/28/2024 Alba Caal Ingrown nail L60.0 Assessments Encounter Date Diagnosis (ICD Code) Assessment Notes Treatment Notes Treatment Clinical Notes Section Notes 09/28/2024 Ingrown nail (ICD-10 - L60.0) Plan Of Treatment Next Appt Details Follow Up: prn, Reason: Progress Notes * Sana DE JESUS ADOB:1950 (73 yo F)Acc No.[id number]:09/28/2024 Progress Note Patient:Sana BILLINGS Provider:?Alba Caal DPM :1950???Age:73 Y???Sex:Female D ate:09/28/2024 Address[place] [address], [id number] Pcp:Celestina Zimmerman MD Subjective: * Chief Complaints: [...] Surgical History:?hysterecto my * [place]/Major Diagno stic [place] [place], [place] issues [place] * Family History:?Mother: [...] TABLET BY MOUTH ONCE DAILY Oral Nystatin 491064 UNIT/ML Suspension Mouth/Throat Not-Taking/PRN Doxycycline Monohydrate 100 [...] BY MOUTH ONCE DAILY Oral Not-Taking/PRN Nystatin 716278 UNIT/ML Suspension Mouth/Throat UnknownDicyclomine HCl 20 MG [...] Caal DPM Date:? Generated for Yamil carlton/Luc/Jonnathan on:?11/02/2024 05:01 PM EDT History and Physical [...]
--- OUTSIDE RECORDS SUMMARY | 2024-11-02 17:02 | XMS_ITS | Patient Health Record ---
Author Organization [facility] [place] Address [address] [facility] [place] [address] Care Team Providers Care Night Cleaner Name Role Phone Celestina Zimmerman MD Primary Care Provider Alba Mir Unavailable [phone] Allergies Allergen (clinical drug ingredient) Drug/Non Drug [...] MG Oral for 90 A ctive Nystatin 272281 UNIT/ML Mouth/Throat for 10 Not-Taking hydrALAZINE HCl [...] Risk Notes Problem Chronic ulcer of foot (962083989) Non-pressure chronic ulcer of other part of left foot with fat layer exposed (L97.522) Active confirmed Problem 35182550 Non-pressure ulcer of left lower extremity, limited to breakdown of skin (L97.921) Active confirmed Problem 655572849 Hammer toe of left foot (M20.42) Active confirmed Problem 62819339 Non-pressure ulcer of left lower extremity with fat layer exposed (L97.922) Active confirmed Problem 68597829 Non-pressure ulcer of right lower extremity with fat layer exposed (L97.912) Active confirmed Vital Signs Blood pressure diastolic 55 mm Hg 09/28/2024 Height 5ft5in in 09/28/2024 Blood pressure systolic 120 mm Hg 09/28/2024 Weight 185 lbs 09/28/2024 BMI 30.78 kg/m2 09/28/2024 Encounters Encounter Location Date Provider Diagnosis [facility] [address] 11/15/2023 Alba Perica Tinea unguium B35.1 ; Pain in left foot M79.672 and Pain in right toe(s) M79.[address] [facility] [address] 09/28/2024 Alba Perica Ingrown nail L60.0 Assessments Encounter Date Diagnosis (ICD Code) Assessment Notes Treatment Notes Treatment Clinical Notes Section Notes 11/15/2023 Tinea unguium (ICD-10 - B35.1) 09/28/2024 Ingrown nail (ICD-10 - L60.0) 11/15/2023 Pain in left foot (ICD-10 - M79.672) 11/15/2023 Pain in right toe(s) (ICD-10 - M79.674) Plan Of Treatment Pending Test Test Name Order Date [id number] SKIN/TISSUE 01/06/2023 Insurance Providers Payer Name Payer Address Payer Phone Subscriber Number Group Number Insured Name Patient Relationship to Insured Coverage Start Date Coverage End Date Medicare National Govt Sv[employer] [address] [facility] [address] [id number] Sana Mireles Self - patient is the insured [employer] [address] [place] [address] [id number] Sana Mireles Self - patient is the insured Medical (General) History Medical History History ICD Code Anxiety Cancer Measles Mumps Chicken pox Headaches/Migraines High blood pressure Psychiatric disorder Celiac disease Surgical History Surgery Date(Month/Year) hysterectomy Hospitalization History Reason Date(Month/Year) C- CHF, respiratory issues 09/2022
== END 2024-11-02 16:49 | disposition home or self-care (01) ==
PROVIDERS: Emergency Provider Emergency Medicine; PCP Internal Medicine
DX: M25.532 Pain in left wrist (principal); Z79.899 Other long term (current) drug therapy; Z87.891 Personal history of nicotine dependence
CPT/HCPCS: 29125; 73110; 99283; 99284

== ENCOUNTER → 2024-11-02 14:14 | Outpatient (BNV) | payer MEDICARE, SELFPAY | PROVIDERS: PCP Internal Medicine; Visit Provider Radiology Diagnostic Radiology | DX: M25.532 Pain in left wrist (principal) | CPT/HCPCS: 73110 ==

== ENCOUNTER → 2024-11-04 10:53 | Outpatient (BNV) | payer MEDICARE, SELFPAY | PROVIDERS: PCP Internal Medicine; Visit Provider Radiology Diagnostic Radiology | DX: M47.812 Spondylosis without myelopathy or radiculopathy, cervical region (principal); M99.61 Osseous and subluxation stenosis of intervertebral foramina of cervical region | CPT/HCPCS: 72141 ==

== ENCOUNTER 2024-11-04 10:56 | Outpatient (REF) | payer MEDICARE, SELFPAY ==
--- NOTE | ~2024-11-04 | MR_ITS ---
EXAMINATION: MR CERVICAL SPINE WITHOUT CONTRAST CLINICAL INFORMATION: Spondylosis without myelopathy or radiculopathy, cervical region. COMPARISON: None available. TECHNIQUE: MRI of the cervical spine was obtained using routine sequences without contrast. FINDINGS: Craniocervical junction is intact. No bone marrow STIR signal abnormality. Multilevel marginal osteophyte formation and disc desiccation C4 C7. Grade 1 anterolisthesis C3-4. Grade 1 retrolisthesis 7. There is thinning of the ligamentum flavum signal C4-5 and C6-7. The cervical spinal cord signal is normal. C2-3: Central disc osteophyte complex formation. Facet joint hypertrophy. No cord compression. Left neuroforamina narrowing. C3-4: Central disc osteophyte compresses formation. No cord compression. No neuroforamina stenosis. C4-5: Broad-based disc osteophyte complex formation. Facet joint and ligamentum flavum hypertrophy. Reduced AP diameter of the thecal sac and the neural foramina. C5-6: Broad-based disc osteophyte compresses formation. Facet joint and ligamentum flavum hypertrophy. Reduced AP diameter of the thecal sac and CSF effacement. Bilateral neuroforamina stenosis. C6-7: Disc osteophyte complex formation. Facet joint and ligamentum flavum hypertrophy. Reduced AP diameter of the thecal sac and CSF effacement. No neuroforamina stenosis. C7-T1: No disc herniation. No neuroforamina stenosis. Bilateral perineural cysts at T1-2. No prevertebral compartment hematoma, mass or fluid collection. Flow-void signal within the main vessels is normal. Codominant vertebral arteries. MR/MR cervical spine wo con IMPRESSION: Multilevel spondylosis C3 C7 more conspicuous at C4-5 and C5-6 resulting in central spinal canal stenosis without cord compression, cord edema and or myelopathy. Bilateral neuroforamina stenosis at C4-5 on a degenerative basis. Electronically signed by: Ciaran Pichardo MD 11/05/2024 08:47 AM EDT
--- OUTSIDE RECORDS SUMMARY | 2024-11-04 11:04 | XMS_ITS | Patient Health Record ---
Author Organization [facility] [place] Address [address] [facility] [place] [address] Care Team Providers Care Statistics Tutor Name Role Phone Celestina Zimmerman MD Primary Care Provider Alba Mir Unavailable [phone] Allergies Allergen (clinical drug ingredient) Drug/Non Drug [...] MG Oral for 90 A ctive Nystatin 943351 UNIT/ML Mouth/Throat for 10 Not-Taking hydrALAZINE HCl [...] Risk Notes Problem Chronic ulcer of foot (422811307) Non-pressure chronic ulcer of other part of left foot with fat layer exposed (L97.522) Active confirmed Problem 85693779 Non-pressure ulcer of left lower extremity, limited to breakdown of skin (L97.921) Active confirmed Problem 293160400 Hammer toe of left foot (M20.42) Active confirmed Problem 15316756 Non-pressure ulcer of left lower extremity with fat layer exposed (L97.922) Active confirmed Problem 70579349 Non-pressure ulcer of right lower extremity with fat layer exposed (L97.912) Active confirmed Vital Signs Blood pressure diastolic 55 mm Hg 09/28/2024 Height 5ft5in in 09/28/2024 Blood pressure systolic 120 mm Hg 09/28/2024 Weight 185 lbs 09/28/2024 BMI 30.78 kg/m2 09/28/2024 Encounters Encounter Location Date Provider Diagnosis [facility] [address] 11/15/2023 Alba Perica Tinea unguium B35.1 ; Pain in left foot M79.672 and Pain in right toe(s) M79.674 [facility] [address] 09/28/2024 Alba Perica Ingrown nail L60.0 Assessments Encounter Date Diagnosis (ICD Code) Assessment Notes Treatment Notes Treatment Clinical Notes Section Notes 11/15/2023 Tinea unguium (ICD-10 - B35.1) 09/28/2024 Ingrown nail (ICD-10 - L60.0) 11/15/2023 Pain in left foot (ICD-10 - M79.672) 11/15/2023 Pain in right toe(s) (ICD-10 - M79.674) Plan Of Treatment Pending Test Test Name Order Date [id number] SKIN/TISSUE 01/06/2023 Insurance Providers Payer Name Payer Address Payer Phone Subscriber Number Group Number Insured Name Patient Relationship to Insured Coverage Start Date Coverage End Date Medicare National Govt Svcs Inc [address] [place] [address] [id number] Sana Mireles Self - patient is the insured [employer] [address] [place] [address] [phone] [id number] Sana Mireles Self - patient is the insured Medical (General) History Medical History History ICD Code Anxiety Cancer Measles Mumps Chicken pox Headaches/Migraines High blood pressure Psychiatric disorder Celiac disease Surgical History Surgery Date(Month/Year) hysterectomy Hospitalization History Reason Date(Month/Year) C- CHF, respiratory issues 09/2022
--- OUTSIDE RECORDS SUMMARY | 2024-11-04 11:04 | XMS_ITS ---
Author Organization [facility] Address [address] [facility] [place] [address] Care Team Providers Care Team Leader Name Role Phone Celestina Zimmerman MD Primary Care Provider Alba Mir Unavailable [phone] Allergies Allergen (clinical drug ingredient) Drug/Non Drug [...] TIMES DAILY Oral for 30 Unknown Nystatin 791471 UNIT/ML Mouth/Throat for 10 Not-Taking Lidocaine Viscous [...] 025 Encounters Encounter Location Date Provider Diagnosis [facility] [place] [address] [place] [address] 09/28/2024 Alba Caal Ingrown nail L60.0 Assessments Encounter Date Diagnosis (ICD Code) Assessment Notes Treatment Notes Treatment Clinical Notes Section Notes 09/28/2024 Ingrown nail (ICD-10 - L60.0) Plan Of Treatment Next Appt Details Follow Up: prn, Reason: Progress Notes * Sana DE JESUS ADOB:1950 (73 yo F)Acc No.[id number]:09/28/2024 Progress Note Patient:Sana BILLINGS Provider:?Alba Caal DPM :1950???Age:73 Y???Sex:Female D ate:09/28/2024 Address:[place] [address], [id number] Pcp:Celestina Zimmerman MD Subjective: * Chief Complaints: [...] TABLET BY MOUTH ONCE DAILY Oral Nystatin 817960 UNIT/ML Suspension Mouth/Throat Not-Taking/PRN Doxycycline Monohydrate 100 [...] BY MOUTH ONCE DAILY Oral Not-Taking/PRN Nystatin 459361 UNIT/ML Suspension Mouth/Throat UnknownDicyclomine HCl 20 MG [...] Assessment: * Assessment: 1.?Ingrown nail - L60.0 (aTnia alaniz)??? Plan: * Treatment: * Procedure Codes:? [...] Caal DPM Date:? Generated for Yamil carlton/Luc/Jonnathan on:?11/04/2024 11:04 AM EDT History and Physical Notes * HPI [...]
--- OUTSIDE RECORDS SUMMARY | 2024-11-04 11:04 | XMS_ITS ---
Author Organization [facility] Address [address] [facility] [place] [address] Care Team Providers Care Ladle Repairman Name Role Phone Celestina Zimmerman MD Primary Care Provider Alba Mir Unavailable [phone] Allergies Allergen (clinical drug ingredient) Drug/Non Drug [...] ONCE DAILY Oral for 5 Not-Taking Nystatin 643217 UNIT/ML Mouth/Throat for 10 Not-Taking Clopidogrel Bisulfate [...] 024 Encounters Encounter Location Date [facility] [address] [place] [address] 11/15/2023 Alba Perica Tinea unguium B35.1 ; [...] as necessary. Patient chooses, no pharmaceutical tx (65669) Progress Notes * Sana DE JESUS ADOB:1950 (73 yo F)Acc No.[id number]:11/15/2023 Progress Note Patient:?Sana De Jesus Provider:?Alba Caal DPM :1950???Age:73 Y???Sex:Female D ate:11/15/2023 Address:[place] [address], [facility] Pcp:Celestina Zimmerman MD Subjective: * Chief Complaints: [...] TABLET BY MOUTH ONCE DAILY Oral Nystatin 554883 UNIT/ML Suspension Mouth/Throat Not- Taking/PRN Doxycycline Monohydrate [...] BY MOUTH ONCE DAILY Oral Not-Taking/PRN Nystatin 319962 UNIT/ML Suspension Mouth/Throat UnknownDicyclomine HCl 20 MG [...] as necessary. Patient chooses, no pharmaceutical tx (97568).? * Procedure Codes:?56779 QUE CONNELL NAIL, 1-5 * Follow Up:?prn * Images: * Sign off status: Completed true * Provider:?Alba Caal, TRACY Date:? Generated for Yamil carlton/Luc/eTyakovsmitting on:?11/04/2024 11:04 AM EDT History and Physical [...]
== END 2024-11-04 10:57 | disposition home or self-care (01) ==
LOC: HO.MRI 10:56
PROVIDERS: PCP Internal Medicine; Visit Provider Psychiatry & Neurology Neurology
DX: M47.812 Spondylosis without myelopathy or radiculopathy, cervical region (principal)
CPT/HCPCS: 72141

== ENCOUNTER 2024-11-26 10:52 | Outpatient (REF) | payer MEDICARE, SELFPAY ==
[2024-11-26 12:57] LABS: MANUAL DIFF FLAG NO
[2024-11-26 13:56] LABS: Basophils Absolute Auto 0.1 X10*3/uL (0.0-0.2); Basophils Percent Auto 1.5 % (0-2); Eosinophils Absolute Auto 0.2 X10*3/uL (0.0-0.4); Eosinophils Percent Auto 4.3 % (0-4); Hematocrit 42.8 % (37.0-47.0); Imm Gran Abs Auto 0.01 X10*3/uL (0.00-0.03); Imm Gran Pct Auto 0.2 % (0.0-0.4); Lymphocytes Absolute Auto 1.2 X10*3/uL (1.2-4.9); Lymphocytes Percent Auto 23.3 % (20-40); Mean Corpuscular HGB Conc 32.7 g/dl (31.0-35.0); Mean Corpuscular Hemoglobin 29.1 pg (27.0-33.0); Mean Platelet Volume 10.9 fL (9.4-12.3); Monocytes Absolute Auto 0.6 X10*3/uL (0.1-1.2); Monocytes Percent Auto 10.6 % (2-11); Neutrophils Absolute Auto 3.2 x10*3/uL (2.0-8.3); Neutrophils Percent Auto 60.1 % (45-73); Platelet Count 265 X10*3/uL (160-400); Red Blood Count 4.81 X10*6/uL (4.20-5.50); White Blood Count 5.3 X10*3/uL (4.8-10.8)
[2024-11-26 14:35] LABS: Alanine Aminotransferase 33 U/L (0-31); Albumin Level 4.7 g/dL (3.5-5.0); Alkaline Phosphatase 114 U/L (39-117); Anion Gap 14 (12-20); Aspartate Amino Transferase 40 U/L (5-31); Bilirubin Total 0.4 mg/dL (0.0-1.0); Blood Urea Nitrogen 25 mg/dL (9-16); Calcium 9.6 mg/dL (8.4-10.2); Carbon Dioxide 31 mmol/L (22-29); Chloride 101 mmol/L (96-108); Estimated Glomerular Filt Rate 46; Glucose Random 86 mg/dL (60-115); Potassium 3.8 mmol/L (3.3-5.1); Sodium 142 mmol/L (135-145); Total Protein 7.7 g/dL (6.5-8.0)
[2024-11-27 11:47] LABS: Anti Nuclear Antibody Screen NEGATIVE (NEGATIVE)
[2024-11-30 21:24] LABS: Aldolase 5.5 U/L (<=8.1)
== END 2024-11-26 10:53 | disposition home or self-care (01) ==
LOC: HO.LAB 10:52
PROVIDERS: PCP Internal Medicine; Visit Provider Internal Medicine Gastroenterology
DX: R13.10 Dysphagia, unspecified (principal); R79.89 Other specified abnormal findings of blood chemistry; R79.82 Elevated C-reactive protein (CRP); K75.81 Nonalcoholic steatohepatitis (NASH)
CPT/HCPCS: 36415; 80053; 82085; 82550; 85025; 86038; 99212

== ENCOUNTER 2024-11-26 10:52 | Outpatient (AMB) | payer MEDICARE, SELFPAY ==
--- NOTE | 2024-11-26 11:02 | A.OFFVIS_ITS ---
Vital Signs 11/26/24 11:11 Height 5 ft 4 in Weight 186 lb BMI 31.9 BP 124/56 L Blood Pressure Location Lt brachial Position Sitting Pulse 56 Pulse Oximetry (%) 95 Oxygen Delivery Method Room Air Intake Visit Reasons: 3 mo f/u Intake Note: Patient follow up for swallowing difficulty Patient cc: swallowing problems. Denies any other GI issues. Veneer Taping Machine Offbearer Required: No Accompanied by: Spouse Allergies gluten [GLUTEN] Allergy (Severe, Verified 11/26/24 11:08) ABD PAIN Sulfa (Sulfonamide Antibiotics) [SULFA(SULFONAMIDE ANTIBIOTICS)] Allergy (Severe, Verified 11/26/24 11:08) Rash mirtazapine Adverse Reaction (Severe, Verified 11/26/24 11:08) peripheral edema HPI HPI 3 mo f/u: Details: 74 yr old f called for f/u RECAP: 1/ Dysphagia and celiac disease: TESTS: [facility] EMS with high IRP, otherwise nml per paperwork, EGD 04/2021-- nml duodenal bx, nml esophgeal bx, hyperplastic/fundic polyp removed Ba swallow 01/2021-- severe esophageal dysmotility, prolonged stasis, no gerd, sw allowing mechanism GES--nml 2/Abn LFT:Was placed on urosdiol and still taking, LFT have been nml TESTS: US 08/2022-- cholelithiasis noted rept LFT 10/22/22- normal and also on 06/2023 neg celiac, neg LKM, neg LINDA LFT: 05/2024- normal 3/ Abdominal pain- random and intermittent -occasionally, suprapubic area, improves with rest and lasts < 5 min I ordered MRI of brain with small vessel changes, TMJ arthritis noted also referred neuro due to gait abnormalities INTERIM: Her gait and walking is better she still has issues with dysphagia -- egd pending next week bowels are better CK and LFT mildly elevated last time vitamins were good EXAM: GENERAL: The patient is well developed and nontoxic. VITAL SIGNS:see workflow HEENT: Nonicteric sclerae, PERRLA, EOMI. Oropharynx clear. Moist mucous membranes. Conjunctivae appear well perfused. No thyroid mass. CHEST: Chest wall is nontender. HEART: Regular rate and rhythm without murmurs. LUNGS: Clear to auscultation bilaterally. ABDOMEN: Soft, positive bowel sounds, nontender, no organomegaly.no flank tenderness SKIN: No rash, no excessive bruising, petechiae, or purpura. NEUROLOGIC: Cranial nerves II-XII intact without motor/sensory deficit. v difficult for her to do tandem walking, falling to the right side Psych: normal affect A/P: 1/ Dysphagia 2/ abn LFT and CK PLAN: 1/ recheck CK andf LFT--if CK still high then rheum referral and myositis panel 2/ EGD pending [facility] Medical History Spondylosis, cervical Headache Cervicalgia Chronic rhinitis Pulmonary nodule Pulmonary nodule Hearing loss Annual physical exam Dysphagia Vocal cord dysfunction Weight gain Edema Urinary incontinence Asthma History of concussion Shortness of breath Lower extremity edema Dyspnea Hypoxemia requiring supplemental oxygen Nonspecific interstitial pneumonitis Peripheral neuropathy Psychiatric disorder Mammogram normal Hyperlipemia Pulmonary hypertension DANIS on CPAP Pneumonitis Orthostatic hypotension dysautonomic syndrome Hypothyroid HTN (hypertension) Celiac disease Diastolic CHF Surgical History Hx of esophagogastroduodenoscopy History of total abdominal hysterectomy and bilateral salpingo-oophorectomy Endometrial adenocarcinoma History of colonoscopy Family History Father Savita cell cancer HTN (hypertension) CVD (cardiovascular disease) Mother Crohn disease Cancer Maternal Grandfather No problems noted. Maternal Grandmother No problems noted. Paternal Grandfather CVD (cardiovascular disease) Paternal Grandmother COPD (chronic obstructive pulmonary disease) Brother No problems noted. Sister No problems noted. Daughter No problems noted. Social History Household Members: Spouse Housing: House Are you a primary patient centered care specialist to a significant other at home: No Do you presently have visiting nurse or other home services: No Alcohol intake: current Alcohol intake frequency: holidays/special occasions only Comment: pt resting Patient Tobacco Use Status: Former Tobacco user Tobacco use type: Cigarette Years Smoked: 2 e-Cigarette/Vaping Use: Never Used Second Hand Smoke Exposure: No Advance Directives Date on File: 01/26/21 service: No Current occupational status: retired Cognitive needs: No Hearing needs: Yes Vision needs: Yes Physical Exam Vital Signs: Last Vital Signs Pulse 56 11/26/24 11:11 BP 124/56 L 11/26/24 11:11 Pulse Ox 95 11/26/24 11:11 Oxygen Delivery Method Room Air 11/26/24 11:11 BMI result Body Mass Index 31.9 Assessment & Plan Assessment & Plan (1) Elevated LFTs: Comment: Started on Ursodiol by GI Code(s): R79.89 - Other specified abnormal findings of blood chemistry Category: Medical Plan: as above (2) Dysphagia: Comment: EGD at [facility] 2020, negative bx, barium swallow: severe esophageal dysmotility, Code(s): R13.10 - Dysphagia, unspecified Category: Medical Plan: as above Orders: Orders Comprehensive Met. Panel Today K75.81 - Nonalcoholic steatohepatitis (PEARSON), R13.10 - Dysphagia, unspecified, R79.89 - Other specified abnormal findings of blood chemistry Complete Blood Count Auto Diff Today R13.10 - Dysphagia, unspecified, R79.89 - Other specified abnormal findings of blood chemistry Creatine Kinase Total Today R13.10 - Dysphagia, unspecified, R79.89 - Other specified abnormal findings of blood chemistry Aldolase Today R13.10 - Dysphagia, unspecified, R79.89 - Other specified abnormal findings of blood chemistry LINDA Reflex Titer and Pattern Today R13.10 - Dysphagia, unspecified, R79.82 - Elevated C-reactive protein (CRP), R79.89 - Other specified abnormal findings of blood chemistry Coding Level of Care Code Est Pt Level 3 (24811) Diagnoses Elevated LFTs R79.89 Dysphagia R13.10
[2024-11-26 11:11] VITALS: BP 124/56; PULSE 56; O2SAT 95; BMI 31.9
--- OUTSIDE RECORDS SUMMARY | 2024-11-26 13:02 | XMS_ITS ---
Author Organization [facility] Address [address] [facility] [place] [address] Care Team Providers Care Geographic Information Systems Director Name Role Phone Celestina Zimmerman MD Primary Care Provider Alba Mir Unavailable [phone] Allergies Allergen (clinical drug ingredient) Drug/Non Drug [...] TIMES DAILY Oral for 30 Unknown Nystatin 697386 UNIT/ML Mouth/Throat for 10 Not-Taking Lidocaine Viscous [...] 025 Encounters Encounter Location Date Provider Diagnosis [facility] [place] [address] [place] [address] 09/28/2024 Alba Caal Ingrown nail L60.0 Assessments Encounter Date Diagnosis (ICD Code) Assessment Notes Treatment Notes Treatment Clinical Notes Section Notes 09/28/2024 Ingrown nail (ICD-10 - L60.0) Plan Of Treatment Next Appt Details Follow Up: prn, Reason: Progress Notes * Sana DE JESUS ADOB:1950 (73 yo F)Acc No.[id number]:09/28/2024 Progress Note Patient:Sana BILLINGS Provider:?Alba Caal DPM :1950???Age:73 Y???Sex:Female D ate:09/28/2024 Address:[place] [address], [id number] Pcp:Celestina Zimmerman MD Subjective: * Chief Complaints: [...] Surgical History:?hysterecto my * Hospitalization/Major Diagno stic Procedure:[place] [place], respiratory issues 09/2022 [...] TABLET BY MOUTH ONCE DAILY Oral Nystatin 055415 UNIT/ML Suspension Mouth/Throat Not-Taking/PRN Doxycycline Monohydrate 100 [...] BY MOUTH ONCE DAILY Oral Not-Taking/PRN Nystatin 734297 UNIT/ML Suspension Mouth/Throat UnknownDicyclomine HCl 20 MG [...] Caal DPM Date:? Generated for Yamil carlton/Luc/Jonnathan on:?11/26/2024 01:02 PM EDT History and Physical Notes * [...]
--- OUTSIDE RECORDS SUMMARY | 2024-11-26 13:02 | XMS_ITS | Patient Health Record ---
Author Organization [facility] gabriel Bergoo Address [address] [place] [address] Care Team Providers Care Election Supervisor Name Role Phone Celestina Zimmerman MD Primary Care Provider Alba Mir Unavailable [phone] Allergies Allergen (clinical drug ingredient) Drug/Non Drug [...] MG Oral for 90 A ctive Nystatin 381881 UNIT/ML Mouth/Throat for 10 Not-Taking hydrALAZINE HCl [...] Risk Notes Problem Chronic ulcer of foot (448287538) Non-pressure chronic ulcer of other part of left foot with fat layer exposed (L97.522) Active confirmed Problem 06694303 Non-pressure ulcer of left lower extremity, limited to breakdown of skin (L97.921) Active confirmed Problem 481456262 Hammer toe of left foot (M20.42) Active confirmed Problem 27913232 Non-pressure ulcer of left lower extremity with fat layer exposed (L97.922) Active confirmed Problem 04131607 Non-pressure ulcer of right lower extremity with fat layer exposed (L97.912) Active confirmed Vital Signs Blood pressure diastolic 55 mm Hg 09/28/2024 Height 5ft5in in 09/28/2024 Blood pressure systolic 120 mm Hg 09/28/2024 Weight 185 lbs 09/28/2024 BMI 30.78 kg/m2 09/28/2024 Encounters Encounter Location Date Provider Diagnosis [facility] [place] [address] [place] [address] 09/28/2024 Alba Caal Ingrown nail L60.0 Assessments Encounter Date Diagnosis (ICD Code) Assessment Notes Treatment Notes Treatment Clinical Notes Section Notes 09/28/2024 Ingrown nail (ICD-10 - L60.0) Plan Of Treatment Pending Test Test Name Order Date 35850-AXYLURP SKIN/TISSUE 01/06/2023 Insurance Providers Payer Name Payer Address Payer Phone Subscriber Number Group Number Insured Name Patient Relationship to Insured Coverage Start Date Coverage End Date Medicare National [employer] [address] [place] [address] [id number] Sana Mireles Self - patient is the insured [employer] [address] [place] [address] [id number] Sana Mireles Self - patient is the insured Medical (General) History Medical History History ICD Code Anxiety Cancer Measles Mumps Chicken pox Headaches/Migraines High blood pressure Psychiatric disorder Celiac disease Surgical History Surgery Date(Month/Year) hysterectomy Hospitalization History Reason Date(Month/Year) [facility] [place], respiratory issues 09/2022
--- OUTSIDE RECORDS SUMMARY | 2024-11-26 13:02 | XMS_ITS ---
Author Organization [facility] Address [address] [facility] [place] [address] Care Team Providers Care Property Disposal Manager Name Role Phone Celestina Zimmerman MD Primary Care Provider Alba Mir Unavailable [phone] Allergies Allergen (clinical drug ingredient) Drug/Non Drug [...] ONCE DAILY Oral for 5 Not-Taking Nystatin 914284 UNIT/ML Mouth/Throat for 10 Not-Taking Clopidogrel Bisulfate [...] 024 Encounters Encounter Location Date [facility] [address] [place] [address] 11/15/2023 Alba Perica Tinea unguium B35.1 ; [...] as necessary. Patient chooses, no pharmaceutical tx (31018) Progress Notes * Sana DE JESUS ADOB:1950 (73 yo F)Acc No.[id number]:11/15/2023 Progress Note Patient:?Sana De Jesus Provider:?Alba Caal DPM :1950???Age:73 Y???Sex:Female D ate:11/15/2023 Address:[place] [address], [facility] Pcp:Celestina Zimmerman MD Subjective: * Chief Complaints: [...] TABLET BY MOUTH ONCE DAILY Oral Nystatin 752157 UNIT/ML Suspension Mouth/Throat Not- Taking/PRN Doxycycline Monohydrate [...] BY MOUTH ONCE DAILY Oral Not-Taking/PRN Nystatin 536795 UNIT/ML Suspension Mouth/Throat UnknownDicyclomine HCl 20 MG [...] as necessary. Patient chooses, no pharmaceutical tx (02199).? * Procedure Codes:?87247 QUE CONNELL NAIL, 1-5 * Follow Up:?prn * Images: * Sign off status: Completed true * Provider:?Alba Caal, TRACY Date:? Generated for Yamil carlton/Luc/eTyakovsmitting on:?11/26/2024 01:01 PM EDT History and Physical Notes * [...]
== END 2024-11-26 16:17 | disposition home or self-care (01) ==
LOC: HO.HGI 10:53
PROVIDERS: PCP Internal Medicine; Visit Provider Internal Medicine Gastroenterology
DX: R79.89 Other specified abnormal findings of blood chemistry (principal); R13.10 Dysphagia, unspecified
CPT/HCPCS: 99213

== ENCOUNTER 2024-11-27 09:43 | Day surgery (SDC) | payer MEDICARE, SELFPAY ==
[2024-11-27 11:15] VITALS: BP 130/94; PULSE 57; RESP 20; TEMP 36.4; O2SAT 95; BMI 31.1
--- NOTE | 2024-11-27 11:36 | MHC.SHP ---
Pre-Procedural Eval Section A - 24 Hr Update-Section A only Date of Service: 11/27/24 The patient is an INPATIENT: No The patient has been examined within 24 hours of the surgical procedure. The History & Physical has been completed within 30 days and I have reviewed it.: Yes Section B - Complete if H&P > 30 days Chief Complaint: Dysphagia, unspecified Allergies: Allergies Allergy/AdvReac Type Severity Reaction Status Date / Time gluten [GLUTEN] Allergy Severe ABD PAIN Verified 11/26/24 11:08 Sulfa (Sulfonamide Allergy Severe Rash Verified 11/26/24 11:08 Antibiotics) [SULFA(SULFONAMIDE ANTIBIOTICS)] mirtazapine AdvReac Severe peripheral Verified 11/26/24 11:08 edema Plan Diagnosis/Plan: Unchanged I have reviewed the history and physical and performed a pertinent physical examination on my patient. No changes have occurred unless specified. Time Spent With Patient Time: Total time managing care of this patient today ____ minutes.
--- NOTE | 2024-11-27 13:25 | P.CONAN_ITS ---
HPI - Anesthesia Eval Consult details Narrative: For EGD and dilationu PMFSH Active Problems Active Problems: All Active Problems Right wrist tendinitis (Acute) Spondylosis, cervical (Acute) Headache (Acute) Cervicalgia (Acute) Dysphagia (Acute) Back pain (Acute) Postural instability (Acute) Chronic rhinitis (Acute) Anxiety and depression (Acute) Dry mouth (Acute) Neck pain (Acute) Cellulitis (Acute) Cough (Acute) Sinusitis (Acute) Hepatitis C antibody positive in blood (Acute) Elevated LFTs (Acute) Postmenopausal (Acute) UTI (urinary tract infection) (Acute) Pulmonary nodule (Acute) Pulmonary nodule (Acute) Shingles rash (Acute) Hyperlipemia (Acute) Hearing loss (Acute) Mouth sores (Acute) Schatzki's ring (Acute) Annual physical exam (Acute) Esophageal dysmotility (Acute) GERD (gastroesophageal reflux disease) (Acute) Dysphagia (Acute) Vocal cord dysfunction (Acute) Weight gain (Acute) Edema (Acute) Shortness of breath (Acute) Allergic rhinitis (Acute) Bronchitis (Acute) Urinary incontinence (Acute) Asthma (Acute) Hypothyroid (Acute) Diastolic dysfunction (Acute) Suspected COVID-19 virus infection (Acute) SOB (shortness of breath) on exertion (Acute) Thrush (Acute) Irritable bowel syndrome with diarrhea (Acute) Colon cancer screening (Acute) Pre-employment health screening examination (Acute) Dyspnea (Acute) Diastolic CHF (Acute) Pneumonitis (Acute) Mammogram normal (Acute) DANIS on CPAP (Acute) Orthostatic hypotension dysautonomic syndrome (Acute) Celiac disease (Acute) Past Medical History Medical History Spondylosis, cervical Headache Cervicalgia Chronic rhinitis Pulmonary nodule Pulmonary nodule Hearing loss Annual physical exam Dysphagia Vocal cord dysfunction Weight gain Edema Urinary incontinence Asthma History of concussion Shortness of breath Lower extremity edema Dyspnea Hypoxemia requiring supplemental oxygen Nonspecific interstitial pneumonitis Peripheral neuropathy Psychiatric disorder Mammogram normal Hyperlipemia Pulmonary hypertension DANIS on CPAP Pneumonitis Orthostatic hypotension dysautonomic syndrome Hypothyroid HTN (hypertension) Celiac disease Diastolic CHF Family History Family History Father Savita cell cancer HTN (hypertension) CVD (cardiovascular disease) Mother Crohn disease Cancer Maternal Grandfather No problems noted. Maternal Grandmother No problems noted. Paternal Grandfather CVD (cardiovascular disease) Paternal Grandmother COPD (chronic obstructive pulmonary disease) Brother No problems noted. Sister No problems noted. Daughter No problems noted. Family history of problems with anesthesia: No Surgical History Surgical History Hx of esophagogastroduodenoscopy History of total abdominal hysterectomy and bilateral salpingo-oophorectomy Endometrial adenocarcinoma History of colonoscopy History of Problems with Anesthesia: No Social History Social History Household Members: Spouse Housing: House Are you a primary healthcare business analyst to a significant other at home: No Do you presently have visiting nurse or other home services: No Alcohol intake: current Alcohol intake frequency: holidays/special occasions only Comment: pt resting Patient Tobacco Use Status: Former Tobacco user Tobacco use type: Cigarette Years Smoked: 2 e-Cigarette/Vaping Use: Never Used Second Hand Smoke Exposure: No Use of substances other than those prescribed or required for medical reasons: No Advance Directives: No Advance Directives Information Provided: Yes Advance Directives Date on File: 01/26/21 service: No Current occupational status: retired Cognitive needs: No Hearing needs: Yes Vision needs: Yes Meds Allergies Allergy/AdvReac Type Severity Reaction Status Date / Time gluten [GLUTEN] Allergy Severe ABD PAIN Verified 11/26/24 11:08 Sulfa (Sulfonamide Allergy Severe Rash Verified 11/26/24 11:08 Antibiotics) [SULFA(SULFONAMIDE ANTIBIOTICS)] mirtazapine AdvReac Severe peripheral Verified 11/26/24 11:08 edema Home Medications ?Medication ?Instructions ?Recorded ?Confirmed ?Last Taken ?Type sertraline 100 mg tablet 100 mg PO DAILY 05/06/21 11/27/24 11/27/24 History gabapentin 300 mg capsule 300 mg PO DAILY 10/16/22 11/27/24 Unknown History hydralazine 25 mg tablet 75 mg PO BEDTIME 10/16/22 11/27/24 Unknown History nebulizers 11/08/22 10/16/24 Unknown History sodium fluoride 1.1 %-potassium PO BEDTIME 11/08/22 10/16/24 Unknown History nitrate 5 % dental paste ropinirole 0.5 mg tablet 0.5 mg PO BEDTIME 11/22/22 11/27/24 Unknown History gabapentin 100 mg capsule 100 mg PO TID 07/04/23 11/27/24 Unknown History trazodone 100 mg tablet 100 mg PO BEDTIME PRN Insomnia 07/19/23 11/27/24 Unknown History lorazepam 1 mg tablet 1 mg PO BID 06/08/24 11/27/24 Unknown History oxybutynin chloride 5 mg mg PO DAILY 10/16/24 10/16/24 Unknown History tablet,extended release 24 hr Exam Height,Weight and Vital Signs: Height 5 ft 4 in Weight 82.2 kg Last Vital Signs Temp 97.5 F 11/27/24 11:15 Pulse 57 11/27/24 11:15 Resp 20 11/27/24 11:15 BP 130/94 H 11/27/24 11:15 Pulse Ox 95 11/27/24 11:15 O2 Del Method Room Air 11/27/24 11:15 Airway Mallampati Class: III TM Dist: <=3cm Neck ROM: Full Heart: ok Lungs: ok Assessment and Plan Assessment Anesthesia Assessment: Anesthesia Plan Discussed and Chart Reviewed Final Anesthetic Review Family History of Problems with Anesthesia: No History of Problems with Anesthesia: No NPO: Yes ASA Class: III Final Preanesthetic Review: No Changes in Pt Med Stat, Meds/Allgs Chart Reviewed, Consent Obtained/Reviewed and Anes Risks/Benef Reviewed Patient Risk: High Procedure Risk: Intermediate Anesthetic Plan Anesthetic Plan: Agree w/ Assess. and Plan and TIVA Disposition: Standard PACU
--- NOTE | 2024-11-27 13:57 | W.PM.OPN ---
Operative Note Operative Note Date of Service: 11/27/24 Narrative: Procedure Description: EGD Indication: dysphagia Anesthesia: MAC FLEXIBLE TRANSORAL UPPER GASTROINTESTINAL ENDOSCOPY UPPER ENDOSCOPY Consent: Indications for the procedure and potential complications of bleeding, perforation, reaction to medications and missed diagnosis were discussed with the patient and informed consent was obtained. Instrument: Olympus GIF H 190 J mid size upper endoscope Monitoring: Vital signs and clinical assessment, continuous EKG monitoring, Pulse oximetry, Carbon Dioxide monitoring and blood pressure monitoring were done throughout the procedure. Procedure: The patient was placed in the left lateral decubitis position and pre-procedure medications were administered and a bite block was placed. The endoscope was inserted into the mouth and advanced under direct vision to the third part of duodenum. A careful inspection was made as the upper endoscope was withdrawn including a retroflexed examination of the proximal stomach; Findings and interventions are described below. Findings: Larynx:normal Esophagus: GE junction at 38 cm, diaphragm hiatus at 38 cm, normal mucosa --balloon dilation at LES to 20 mm without tear seen, then UEs dilated to 20 mm with superficial tear noted at UES, bx taken from distal and proximal esophagus Stomach: streaky erythema with atrophic tissue . Biopsies were obtained. Grade 2 flap valve on retroflexed examination of the cardia. Duodenum: Normal bulb and descending duodenum, Intervention: Biopsies as noted above, balloon dilation Impression/Findings: gastritis esophageal stricture prob cricopharyngeal bar PLAN: cont with PPI for the meantime, but if not working then can change to another regimen GERD precautions magic mouthwash for 1 week
[2024-11-27 14:06] VITALS: BP 128/55; PULSE 68; RESP 20; TEMP 36.3; O2SAT 92
[2024-11-27] MEDS: Acetaminophen 325 MG TABLET 975 MG PO (14:16)
[2024-11-27] MEDS: Mag&Al/Sim/Diphenhyd/Lidocaine 10 ML ORAL.SUSP PO (14:17)
[2024-11-27 14:21] VITALS: BP 129/46; PULSE 69; RESP 20; TEMP 36.2; O2SAT 94
== END 2024-11-27 14:51 | disposition home or self-care (01) ==
PROVIDERS: PCP Internal Medicine; Visit Provider Internal Medicine Gastroenterology
PROC: (CPT 43249; principal; 2024-11-27 13:10)
DX: R13.10 Dysphagia, unspecified (principal); K90.0 Celiac disease; K22.2 Esophageal obstruction; K29.50 Unspecified chronic gastritis without bleeding; K44.9 Diaphragmatic hernia without obstruction or gangrene; I11.0 Hypertensive heart disease with heart failure; I50.30 Unspecified diastolic (congestive) heart failure; E78.5 Hyperlipidemia, unspecified; E03.9 Hypothyroidism, unspecified; I27.20 Pulmonary hypertension, unspecified; I95.1 Orthostatic hypotension; J45.909 Unspecified asthma, uncomplicated; R09.02 Hypoxemia; Z99.81 Dependence on supplemental oxygen; G62.9 Polyneuropathy, unspecified; F99 Mental disorder, not otherwise specified; R79.89 Other specified abnormal findings of blood chemistry; R74.8 Abnormal levels of other serum enzymes; G47.33 Obstructive sleep apnea (adult) (pediatric); Z85.42 Personal history of malignant neoplasm of other parts of uterus; Z79.899 Other long term (current) drug therapy; Z99.89 Dependence on other enabling machines and devices; Z88.2 Allergy status to sulfonamides; Z88.8 Allergy status to other drugs, medicaments and biological substances; Z87.891 Personal history of nicotine dependence
CPT/HCPCS: 43249; 43239; 88305; 88313; 88342; C1726; J2003; J2704; J3010

== ENCOUNTER → 2024-11-27 09:43 | Outpatient (BNV) | payer MEDICARE, SELFPAY | PROVIDERS: PCP Internal Medicine; Visit Provider Internal Medicine Gastroenterology | DX: K22.2 Esophageal obstruction (principal); K29.70 Gastritis, unspecified, without bleeding | CPT/HCPCS: 43239; 43249 ==

== ENCOUNTER 2024-12-26 12:53 | Outpatient (AMB) | payer MEDICARE, SELFPAY ==
[2024-12-26 12:57] VITALS: BP 112/58; PULSE 53; O2SAT 94; BMI 32.2
--- NOTE | 2024-12-26 12:57 | MHC.OFFVIS ---
Vital Signs 12/26/24 12:57 Height 5 ft 4 in Weight 187 lb 6 oz BMI 32.2 BP 112/58 L Blood Pressure Location Lt brachial Position Sitting Pulse 53 Pulse Source Pulse Oximeter Pulse Oximetry (%) 94 Oxygen Delivery Method Room Air Intake Visit Reasons: 2 mnts f/u appt Intake Note: Patient presents follow up gait. X-ray in chart. Accompanied by: Spouse Allergies gluten [GLUTEN] Allergy (Severe, Verified 12/26/24 13:01) ABD PAIN Sulfa (Sulfonamide Antibiotics) [SULFA(SULFONAMIDE ANTIBIOTICS)] Allergy (Severe, Verified 12/26/24 13:01) Rash mirtazapine Adverse Reaction (Severe, Verified 12/26/24 13:01) peripheral edema HPI Comments Details: 74y/o right handed female comes for evaluation of postural instability. 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 DANIS with CPAP use, however compliance is not available today. She started having balance and gait instability 2-3 years ago, her first fall was 10 years ago, she passed out because of dizziness. She had a concussion, went back to work after 3 months and continued to have frequent headaches. In Mar 2022 she had another fall, she was walking up the front steps and fell backwards in the driveway, she fractured her pelvis and recovered after that. Her gait has progressively worsened, she has seen PT for vertigo which helps with her intability. She had another fall in Jun 2024- she went up the stairs and fell backwards. She denies dizziness. She denies blurry or double vision and a spinning sensation. She has chronic back pain and neck pain. Denies back or neck surgery. She also reports progressive cognitive issues, her short term memory is poor with difficulty in recall, mainly word finding. Mood is low, however she says it is usually stable, we discussed psychosocial difficulties and their manifestations in sleep, she says she has a therapist, and will reach out to her to start self-care , becuase she has been dealing with family problems. She says her headaches last all day, 3-4 times a week, and mostly on the l. temporal side, with photophobia, phonophobia, denies n/v. She uses tylenol otc and heating pads as needed declined medications today. Her bp is controlled, she used to be hypertensive, now she thinks she is hypotensive. She has a h/o r. heart failure and fluid overload, we discussed wearing compression stockings daily for 2 hours and elevating her feet daily. We discussed weight loss and walking, swimming and biking as tolerable. She c/o of urinary urgency since the fall. Reviewed labs with patient today. Reviewed compliance from Aug 2024, will request new compliance data. [facility] Medical History Spondylosis, cervical Headache Cervicalgia Chronic rhinitis Pulmonary nodule Pulmonary nodule Hearing loss Annual physical exam Dysphagia Vocal cord dysfunction Weight gain Edema Urinary incontinence Asthma History of concussion Shortness of breath Lower extremity edema Dyspnea Hypoxemia requiring supplemental oxygen Nonspecific interstitial pneumonitis Peripheral neuropathy Psychiatric disorder Mammogram normal Hyperlipemia Pulmonary hypertension DANIS on CPAP Pneumonitis Orthostatic hypotension dysautonomic syndrome Hypothyroid HTN (hypertension) Celiac disease Diastolic CHF Surgical History Hx of esophagogastroduodenoscopy History of total abdominal hysterectomy and bilateral salpingo-oophorectomy Endometrial adenocarcinoma History of colonoscopy Family History Father Savita cell cancer HTN (hypertension) CVD (cardiovascular disease) Mother Crohn disease Cancer Maternal Grandfather No problems noted. Maternal Grandmother No problems noted. Paternal Grandfather CVD (cardiovascular disease) Paternal Grandmother COPD (chronic obstructive pulmonary disease) Brother No problems noted. Sister No problems noted. Daughter No problems noted. Social History Household Members: Spouse Housing: House Are you a primary patient care secretary to a significant other at home: No Do you presently have visiting nurse or other home services: No Alcohol intake: current Alcohol intake frequency: holidays/special occasions only Comment: pt resting Patient Tobacco Use Status: Former Tobacco user Tobacco use type: Cigarette Years Smoked: 2 e-Cigarette/Vaping Use: Never Used Second Hand Smoke Exposure: No Advance Directives Date on File: 01/26/21 service: No Current occupational status: retired Cognitive needs: No Hearing needs: Yes Vision needs: Yes Review of Systems Const All systems reviewed & are unremarkable except as noted in HPI and below Physical Exam Vital Signs: Last Vital Signs Pulse 53 12/26/24 12:57 BP 112/58 L 12/26/24 12:57 Pulse Ox 94 12/26/24 12:57 Oxygen Delivery Method Room Air 12/26/24 12:57 BMI result Body Mass Index 32.2 Const General: cooperative and comfortable Nutritional Appearance: overweight Orientation/consciousness: patient oriented x3 Neck Neck: Yes no meningeal signs Neuro Other: Gait- antalgic slow, normal base and stride Neck - tightness General: patient oriented x3, tone normal, moves all extremities, no meningeal signs and no focal motor deficits Gait exam (Neuro): Antalgic gait present Motor exam (neuro): 5/5 motor strength present throughout and Normal motor muscle tone present throughout Deep tendon reflexes (DTR's): Right triceps reflex intensity grade: 3+, Left triceps reflex intensity grade: 3+, Rt Biceps (C5, C6): 3+, Left biceps reflex intensity grade: 3+, Right brachioradialis reflex intensity grade: 3+, Left brachioradialis reflex intensity grade: 3+ and Right patellar reflex intensity grade: 3+ Coordination: [id number]-[id number] test normal Psych Appearance: grossly normal Thought process: Normal thought process present Thought content: Normal thought content present Results Reviewed Results Reviewed: 03/2022 Xray pelvis IMPRESSION: 1. Mild diffuse osteopenia. 2. Comminuted fractures of of the right superior and inferior pubic rami. Assessment & Plan Assessment & Plan (1) Gait instability: Comment: bp? Hypotensive? Code(s): R26.81 - Unsteadiness on feet Category: Medical (2) Anxiety and depression: Comment: F/U WITH PSYCHIATRY Code(s): F41.9 - Anxiety disorder, unspecified; F32.A - Depression, unspecified Category: Medical (3) Excessive daytime sleepiness: Code(s): G47.19 - Other hypersomnia Category: Medical (4) Mood complaints in sleep disorder: Code(s): G47.9 - Sleep disorder, unspecified Category: Medical Plan DANIS Compliance is emphasized as patient has orthostatic hypotension, r. heart failure, dizziness and history of falls, with bilateral edema. Gait / Postural instability/ will refer to pt for evaluation and strength training due to deconditioning. Fatigue labs to r/o deficiencies. Mood is anxious f/u with therapis and psychiatry for medication adjustments as needed, practice good self care and sleep hygiene. Patient Instructions: Sleep Hygiene provided: set a scheduled bedtime and wake time to help regulate the circadian rhythm and balance the release of pituitary hormones. Sleep in a dark room, temperatures below 68 degrees, and no devices n bed. Limit caffeinated products 6 hours prior to bed, and limit fluids 2-4 hours prior to bed. Gentle night yoga, diffusing essential oils, and playing soft music can be relaxing. Accupuncture, massage therapy and swimming may be helpful to elevate the mood, and social / community engagements as needed, f/u with therapist for difficulties with family. Coding Level of Care Code Est Pt Level 4 (32432) Diagnoses Gait instability R26.81 Anxiety and depression F41.9; F32.A Excessive daytime sleepiness G47.19 Mood complaints in sleep disorder G47.9 Time Spent (min) 35 Comment worsening orthostatic hypotension.
--- OUTSIDE RECORDS SUMMARY | 2024-12-26 13:34 | XMS_ITS ---
[facility] Organization [facility] Address [address] [place] [address] Care Team Providers Care Cutting Room Supervisor Name Role Phone Celestina Zimmerman MD Primary Care Provider Alba Mir Unavailable [phone] Allergies Allergen (clinical drug ingredient) Drug/Non Drug [...] ONCE DAILY Oral for 5 Not-Taking Nystatin 137870 UNIT/ML Mouth/Throat for 10 Not-Taking Clopidogrel Bisulfate [...] 024 Encounters Encounter Location Date [facility] [address] [place] [address] 11/15/2023 Alba Perica Tinea unguium B35.1 ; [...] as necessary. Patient chooses, no pharmaceutical tx (19151) Progress Notes * Sana DE JESUS ADOB:1950 (73 yo F)Acc No.[id number]:11/15/2023 Progress Note Patient:?Sana De Jesus Provider:?Alba Caal DPM :1950???Age:73 Y???Sex:Female D ate:11/15/2023 Address:[place] [address], [facility] Pcp:Celestina Zimmerman MD Subjective: * Chief Complaints: [...] TABLET BY MOUTH ONCE DAILY Oral Nystatin 168648 UNIT/ML Suspension Mouth/Throat Not- Taking/PRN Doxycycline Monohydrate [...] BY MOUTH ONCE DAILY Oral Not-Taking/PRN Nystatin 637379 UNIT/ML Suspension Mouth/Throat UnknownDicyclomine HCl 20 MG [...] as necessary. Patient chooses, no pharmaceutical tx (23142).? * Procedure Codes:?86957 QUE CHEATHAM, 1-5 * Follow Up:?prn * Images: * Sign off status: Completed true * Provider:?Alba Caal, TRACY Date:? Generated for Yamil carlton/Luc/eTyakovsmitting on:?12/26/2024 01:33 PM EDT History and Physical Notes * [...]
== END 2024-12-26 14:08 | disposition home or self-care (01) ==
LOC: HO.HSMS 12:54
PROVIDERS: PCP Internal Medicine; Visit Provider Physician Assistant Medical
DX: R26.81 Unsteadiness on feet (principal); F41.9 Anxiety disorder, unspecified; F32.A Depression, unspecified; G47.19 Other hypersomnia; G47.9 Sleep disorder, unspecified
CPT/HCPCS: 99214

== ENCOUNTER → 2024-12-26 12:53 | Outpatient (BNVA) | payer MEDICARE, SELFPAY | PROVIDERS: PCP Internal Medicine; Visit Provider Physician Assistant Medical | DX: G47.33 Obstructive sleep apnea (adult) (pediatric) (principal); R26.81 Unsteadiness on feet; F41.9 Anxiety disorder, unspecified; F32.A Depression, unspecified; G47.19 Other hypersomnia; Z99.89 Dependence on other enabling machines and devices | CPT/HCPCS: 99212 ==

== ENCOUNTER 2025-01-03 13:05 | Outpatient (AMB) | payer MEDICARE, SELFPAY ==
--- NOTE | 2025-01-03 13:10 | MHC.OFFVIS ---
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 Patient reports she is experiencing pain at the base of her left thumb. Denies falling. She says she some times has little cyst that appear on her thumb. Ulnar, radial deviation and heavy lifting exacerbate her pains. Denies numbness and tingling. 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 Patient reports she is experiencing pain at the base of her left thumb. Denies falling. She says she some times has little cyst that appear on her thumb. Ulnar deviation and heavy lifting exacerbate her pains. Denies numbness and tingling. [facility] Medical History Spondylosis, cervical Headache Cervicalgia Chronic rhinitis Pulmonary nodule Pulmonary nodule Hearing loss Annual physical exam Dysphagia Vocal cord dysfunction Weight gain Edema Urinary incontinence Asthma History of concussion Shortness of breath Lower extremity edema Dyspnea Hypoxemia requiring supplemental oxygen Nonspecific interstitial pneumonitis Peripheral neuropathy Psychiatric disorder Mammogram normal Hyperlipemia Pulmonary hypertension DANIS on CPAP Pneumonitis Orthostatic hypotension dysautonomic syndrome Hypothyroid HTN (hypertension) Celiac disease Diastolic CHF Surgical History Hx of esophagogastroduodenoscopy History of total abdominal hysterectomy and bilateral salpingo-oophorectomy Endometrial adenocarcinoma History of colonoscopy Family History Father [place] cell cancer HTN (hypertension) CVD (cardiovascular disease) Mother Crohn disease Cancer Maternal Grandfather No problems noted. Maternal Grandmother No problems noted. Paternal Grandfather CVD (cardiovascular disease) Paternal Grandmother COPD (chronic obstructive pulmonary disease) Brother No problems noted. Sister No problems noted. Daughter No problems noted. Social History Household Members: Spouse Housing: House Are you a primary rn wound care to a significant other at home: No Do you presently have visiting nurse or other home services: No Alcohol intake: current Alcohol intake frequency: holidays/special occasions only Comment: pt resting Patient Tobacco Use Status: Former Tobacco user Tobacco use type: Cigarette Years Smoked: 2 e-Cigarette/Vaping Use: Never Used Second Hand Smoke Exposure: No Advance Directives Date on File: 01/26/21 service: No Current occupational status: retired Cognitive needs: No Hearing needs: Yes Vision needs: Yes Review of Systems Const All systems reviewed & are unremarkable except as noted in HPI and below Physical Exam Extrem Other: Patient is alert, oriented, and in no acute distress. Neuro: Normal sensation of the tips of all digits of the left hand at this time Vascular: Cap refill brisk Pain: Tenderness to palpation of the left radial styloid Positive Varun on the left Negative CMC grind No pain with varus and valgus stress of the MCP joint of the left thumb ROM: Patient is able to make a closed fist and extend all digits of the left hand fully Skin: No lacerations or abrasions. General: No ecchymosis, erythema, or evidence of infection. Psych: Appears grossly normal Affect normal Attitude cooperative Office Procedures AMB Tendon Injection Tendon Injection Details: [place] [id number] Tendon Sheath Injection All charges added?: Procedure code (CPT) selection complete Assessment & Plan Assessment & Plan (1) De Quervain's tenosynovitis, left: Code(s): M65.4 - Radial styloid tenosynovitis [de Quervain] Category: Medical Plan 1. De Quervain tenosynovitis, left Patient is educated about this condition Patient is educated about the typical recovery course At this time, patient would like to proceed with steroid injection Injection #1: The risks and benefits of a steroid injection including but not limited to risk of damage to blood vessels, nerves, tendons, infection, skin bleaching, failure to improve symptoms, increased pain, and possible need for further injections or other intervention were discussed with the patient and the patient wishes to proceed with the steroid injection. Once consent was obtained, I sterilely prepped the area over the 1st dorsal compartment of the left thumb. I then injected the 1st dorsal compartment with a combination of 1 mL of dexamethasone (4mg/ml), and 1% lidocaine. The patient tolerated the procedure well with no complications and good resolution of their symptoms prior to leaving clinic. If the patient continues to have pain 6-8 weeks following this injection, they may call to schedule appointment to discuss alternative treatment options Coding Level of Care Code New Pt Level 3 (71671) Diagnoses De Quervain's tenosynovitis, left M65.4 CPT Codes Tendon Injection - Tendon Injection 1: [id number] Tendon Sheath Injection ([id number])
--- OUTSIDE RECORDS SUMMARY | 2025-01-03 15:19 | XMS_ITS | Clinical Summary ---
Author Organization [facility] [address] [facility] [address] [place] [address] Phone Care Team Providers Care Natural Resources Manager Name Role Phone Vonnie Cali DO Primary Care Provider + Allergies No known active allergies Medications gabapentin (Neurontin) 100 mg capsule Take 1 capsule (100 mg total) by mouth 3 (three) times a day. 270 each 3 12/04/2024 12/05/19 26 Active gabapentin (NEURONTIN) 300 mg capsule Take 2 capsules (600 mg total) by mouth at bedtime. Take 300-600mg as needed 180 each 3 12/04/2024 12/05/19 26 Active Active Problems Problem Noted Date Diagnosed Date Anxiety 11/30/2021 History of endometrial cancer 04/29/2017 Overview (12/04/2024): Endometrial biopsy performed on April 26, 2017 showed grade 1 endometrial adenocarcinoma. Patient is referred to NANOTECHNOLOGY TECHNICIAN oncology at [facility]. She underwent total hysterectomy on 05/09/[address] Mora at [facility]. Nodes were negative. She did not require RT or Chemotherapy. Encounters Date Type Department Care Team Description 12/04/2024 3:00 PM EDT Office Visit Obstetrics and Gynecology [facility] [address] [place] [id number] Kaci Oscar CNM Sensation of skin crawling (Primary Dx); Nonintractable headache, unspecified chronicity pattern, unspecified headache type; Insomnia, unspecified type 12/04/2024 Telephone Obstetrics and Gynecology - [address] [phone] Kaci Oscar CNM Medication Problem from Last 3 Months Surgical History Surgery Date Site/Laterality Comments TONSILLECTOMY ADENOIDECTOMY, BILATERAL MYRINGOTOMY AND TUBES age 8 PROCEDURE: WI TONSILLECTOMY & ADENOIDECTOMY <AGE 13 ROBOTIC ASSISTED HYSTERECTOMY 05/09/2017 PROCEDURE: HISTORICAL ROBOTIC HYSTERECTOMY WITH OR WITHOUT BSO Medical History Medical History Date Comments Celiac disease 2007 DX:Celiac diseas e Other and unspecified noninf ectious gastroenteritis and colitis(558.9) 2003 DX:Other and unspec ified noninfectious gastroenteritis and colitis(558.9); COMMENT: viral syndrome PTSD (post-traumatic stress disorder) DX:PTSD (post-traumatic stress disorder); COMMENT: Abusive Endometrial cancer ([facility] V24, [facility] V28) 04/29/2017 DX:Endometrial cancer ([facility]); COMMENT: Endometrial biopsy performed on April 26, 2017 showed grade 1 endometrial adenocarcinoma. Patient is referred to NANOTECHNOLOGY TECHNICIAN oncology at [facility]. She underwent total hysterectomy on 05/09/[address] Mora at [facility]. Nodes were negative. She did not require RT or Chemotherapy. Anxiety 11/30/2021 Family History Medical History Relation Name Comments Crohn's disease Mother Relation Name Status Comments Brother Alive Daughter Alive Father Maternal Grandfather Maternal Grandmother Mother Alive Paternal Grandfather Paternal Grandmother Sister Alive Social History Tobacco Use Types Packs/Day Years Used Date Smoking Tobacco: Never Smokeless Tobacco: Never Alcohol Use Standard Drinks/Week Comments Yes 0 (1 standard drink = 0.6 oz pur e alcohol) Comments Unknown Sex and Gender Information Value Date Recorded Sex Assigned at Not on file Legal Sex Female 5:39 AM EST Gender Identity Not on file Sexual Orientation Not on file Obstetrics History Para Term AB IAB SAB Ectopic Multiple Livin g Live Births 1 1 1 1 1 Date Outcome GA Total Labor Labor/2nd/3rd Weight Sex Type Anes PTL Estephanie A1 A5 Name Clin 05/03 Term 40w 0d 3487 g (123 oz) F Vag-S pont Living Alba Last Filed Vital Signs Vital Sign Reading Time Taken Comments Blood Pressure 126/50 12/04/2024 3:16 PM EDT Pulse 59 12/04/2024 3:16 PM EDT Temperature - - Respiratory Rate 16 12/04/2024 3:16 PM EDT Oxygen Saturation - - Inhaled Oxygen Concentration - - Weight 84.6 kg (186 lb 9.6 oz) 12/04/2024 3:16 P M EDT Height 160 cm (5' 2.99 ) 12/04/2024 3:16 PM EDT Body Mass Index 33.06 12/04/2024 3:16 PM EDT Plan of Treatment Health Maintenance Due Date Last Done Comments Breast Cancer Screening 1950 Cholesterol Screening (Lipid Panel) 07/04/2022 Colorectal Cancer Screening: Colonoscopy 07/04/2022 Depression Screening 07/04/2022 Falls Risk Assessment 07/04/2022 Hepatitis C Screening 07/04/2022 Medicare Annual Wellness Visit 07/04/2022 Osteoporosis Screening (Bone Density Screening) 07/04/2022 Social Influencers of Health Screening 07/04/2022 COVID-19 Vaccine ( season) 2024 07/09/2023, 05/17/2022, 11/27/2021, Additional history exists Hypertension/CHF/CAD Annual BMP Blood Test 05/21/2025 05/21/2024, 02/15/2022 DTaP,Tdap,and Td Vaccines (4 - Td or Tdap) 08/16/2026 08/16/2016, 09/29/2012, 08/01/2003 Pneumococcal Vaccine: 50+ Years Completed 05/19/2022, 03/27/2018, 03/22/2017, Additional history exists Zoster Vaccines Completed 11/18/2022, 08/02, 08/08/2015, Additional history exists RSV Immunization Adult Patients Completed 07/26/2023 Influenza Vaccine Completed 05/09/2024, , 05/19/2022, Additional history exists HIB Vaccines Aged Out No longer eligi ble based on patient's age to complete this topic HPV Vaccines Aged Out No longer eligi ble based on patient's age to complete this topic Hepatitis A Vaccines Aged Out No long er eligible based on patient's age to complete this topic Hepatitis B Vaccines Aged Out No long er eligible based on patient's age to complete this topic IPV Vaccines Aged Out No longer eligi ble based on patient's age to complete this topic MMR Vaccines Aged Out No longer eligi ble based on patient's age to complete this topic Meningococcal ACWY Vaccine Aged Out N o longer eligible based on patient's age to complete this topic Meningococcal B Vaccine Aged Out No l onger eligible based on patient's age to complete this topic RSV Immunization Patients Under 20 months Aged Out No longer eligible based on patient's age to complete this topic Varicella Vaccines Aged Out No longer eligible based on patient's age to complete this topic Insurance MEDICARE [facility] Care Teams Natural Resources Manager Relationship Specialty Start Date End Date Vonnie Cali DO [address] [facility] [address] [place] [address] PCP - General 04/29/17
== END 2025-01-03 13:58 | disposition home or self-care (01) ==
LOC: HO.HOS 13:06
PROVIDERS: PCP Internal Medicine
DX: M65.4 Radial styloid tenosynovitis [de Quervain] (principal)
CPT/HCPCS: 20550; 99203

== ENCOUNTER → 2025-01-03 13:05 | Outpatient (BNVA) | payer MEDICARE, SELFPAY | PROVIDERS: PCP Internal Medicine | DX: M65.4 Radial styloid tenosynovitis [de Quervain] (principal); M25.532 Pain in left wrist | CPT/HCPCS: 20550; 99202; J1100; J2003 ==

== ENCOUNTER 2025-01-08 11:31 | Outpatient (AMB) | payer MEDICARE, SELFPAY ==
[2025-01-08 11:34] VITALS: BP 122/88; PULSE 53; RESP 14; TEMP 36.4; O2SAT 95; BMI 32.3
--- NOTE | 2025-01-08 11:34 | MHC.PC.OV ---
Vital Signs 01/08/25 11:34 Height 5 ft 4 in Weight 188 lb 4 oz BMI 32.3 BP 122/88 Blood Pressure Location Lt brachial Position Sitting Respiration 14 Pulse 53 Pulse Source Pulse Oximeter Temp 97.5 F Temp Source Oral Pulse Oximetry (%) 95 Oxygen Delivery Method Room Air Intake Visit Reasons: myositis and rheumatoid arthritis Intake Note: PT is here today for follow up. Pediatric Hospitalist Required: No Accompanied by: Self / Same As Patient Allergies gluten [GLUTEN] Allergy (Severe, Verified 01/08/25 11:37) ABD PAIN Sulfa (Sulfonamide Antibiotics) [SULFA(SULFONAMIDE ANTIBIOTICS)] Allergy (Severe, Verified 01/08/25 11:37) Rash mirtazapine Adverse Reaction (Severe, Verified 01/08/25 11:37) peripheral edema Tobacco use date assessed: 01/08/25 Fall risk assessment: No Falls in past year Last assessed Fall Risk: 01/08/25 Dental Screening Dental Screen Date: 01/08/25 Did you have a dental visit in the last 12 months?: Yes Did you have a dental problem in the last 6 months where you did not have access to dental care?: No Was dental information given to patient?: Patient has dentist HPI myositis and rheumatoid arthritis HPI Details Pt presents for follow-up of HTN, cholesterol hypertension, hypothyroidism, chronic depression and anxiety stable on current medications. Patient reports lower extremity weakness and is planning to start regular exercises at the gym. She denies recent falls [facility] Medical History Spondylosis, cervical Headache Cervicalgia Chronic rhinitis Pulmonary nodule Pulmonary nodule Hearing loss Annual physical exam Dysphagia Vocal cord dysfunction Weight gain Edema Urinary incontinence Asthma History of concussion Shortness of breath Lower extremity edema Dyspnea Hypoxemia requiring supplemental oxygen Nonspecific interstitial pneumonitis Peripheral neuropathy Psychiatric disorder Mammogram normal Hyperlipemia Pulmonary hypertension DANIS on CPAP Pneumonitis Orthostatic hypotension dysautonomic syndrome Hypothyroid HTN (hypertension) Celiac disease Diastolic CHF Surgical History Hx of esophagogastroduodenoscopy History of total abdominal hysterectomy and bilateral salpingo-oophorectomy Endometrial adenocarcinoma History of colonoscopy Family History Father [place] cell cancer HTN (hypertension) CVD (cardiovascular disease) Mother Crohn disease Cancer Maternal Grandfather No problems noted. Maternal Grandmother No problems noted. Paternal Grandfather CVD (cardiovascular disease) Paternal Grandmother COPD (chronic obstructive pulmonary disease) Brother No problems noted. Sister No problems noted. Daughter No problems noted. Social History Household Members: Spouse Housing: House Are you a primary before and after school daycare worker to a significant other at home: No Do you presently have visiting nurse or other home services: No Alcohol intake: current Alcohol intake frequency: holidays/special occasions only Comment: pt resting Patient Tobacco Use Status: Former Tobacco user Tobacco use type: Cigarette Years Smoked: 2 e-Cigarette/Vaping Use: Never Used Second Hand Smoke Exposure: No Advance Directives Date on File: 01/26/21 service: No Current occupational status: retired Cognitive needs: No Hearing needs: Yes Vision needs: Yes Questionnaire PHQ-9 Over the last 2 weeks, how often have you been bothered by any of the following problems? 1. Little interest or pleasure in doing things: not at all 2. Feeling down, depressed, or hopeless: not at all 3. Trouble falling or staying asleep, or sleeping too much: not at all 4. Feeling tired or having little energy: not at all 5. Poor appetite or overeating: not at all 6. Feeling bad about yourself - or that you are a failure or have let yourself or your family down: not at all 7. Trouble concentrating on things, such as reading the newspaper or watching television: not at all 8. Moving or speaking so slowly that other people could have noticed. Or the opposite - being so fidgety or restless that you have been moving around a lot more than usual: not at all 9. Thoughts that you would be better off or of hurting yourself in some way: not at all Total score: 0 Depression Screening Interpretation: Negative Depression Screening Done: Yes 12049 - PHQ-9 Billing: Yes Source: Developed by Drs. Judson Bravo, Breonna Fernandez, Jared Johnson and colleagues, with an educational shola from [employer]. Thrive Questionnaire Date Thrive assessed: 01/08/25 I am a: Patient What is your living situation today?: I have a steady place to live Within the past 12 months, did the food you bought not last and you didn't have the money to get more?: Never true Within the past 12 months, did you worry whether your food would run out before you got money to buy more?: Never true Do you have trouble paying for medicines?: No Do you have trouble getting transportation to medical appointments?: No Do you have trouble paying your heating and electricity bill?: No Do you have trouble taking care of your child, family member or friend?: No Do you have trouble with day-to-day activities such as bathing, preparing meals, shopping, managing finances, etc.?: No Are you currently unemployed and looking for a job?: No Are you interested in more education?: No Please select the resources that you would like help with: None Currently or been in a relationship where the following occur: No concerns reported THRIVE Score: 0 MONA-7 AMB Questionnaire MONA-7 Date MONA - 7 assessed: 01/08/25 Feeling nervous, anxious, or on edge: 1 = Several days Not being able to stop or control worryin = Several days Worrying too much about different things: 1 = Several days Trouble relaxin = Several days Being so restless that it is hard to sit still: 1 = Several days Becoming easily annoyed or irritable: 0 = Not at all Feeling afraid as if something awful might happen: 0 = Not at all Total MONA-7 score (0-4 normal; 5-9 mild; 10-14 moderate; 15-21 severe): 5 Source: Developed by Drs. Judson Bravo, Breonna Fernandez, Jared Johnson and colleagues, with an educational shola from [employer]. MONA-7 Assessment Billing MONA-7 Assessment Tool: MONA-7 Assessment 96132 Review of Systems Const All systems reviewed & are unremarkable except as noted in HPI and below Eyes Reports no additional complaints ENT Reports no additional complaints Card Reports no additional complaints Resp Reports no additional complaints GI Reports no additional complaints Reports no additional complaints Physical exam (Primary Care) Vital Signs: Last Vital Signs Temp 97.5 F 01/08/25 11:34 Pulse 53 01/08/25 11:34 Resp 14 01/08/25 11:34 BP 122/88 06/10/25 11:34 Pulse Ox 95 01/08/25 11:34 Oxygen Delivery Method Room Air 01/08/25 11:34 BMI result Body Mass Index 32.3 Tobacco/Smoking Status: Tobacco use Status Tobacco use date assessed 01/08/25 01/08/25 11:43 Patient Tobacco Use Status Former Tobacco user 01/08/25 11:43 Tobacco use type Cigarette 01/08/25 11:43 e-Cigarette/Vaping Use Never Used 01/08/25 11:43 PHQ-9: PHQ-9 Score PHQ-9: Total score 0 01/08/25 11:43 Depression Screening Interpretation: Negative Thrive Assessment: Date of Thrive Assessment Date Thrive assessed 01/08/25 01/08/25 11:43 Currently or been in a relationship where the following occur: No concerns reported Const General: no acute distress HENMT Head: Yes normal to inspection Ears: hearing grossly normal bilaterally Eyes General: appearance normal, both eyes and all related structures Resp Effort & Inspection: normal respiratory effort Auscultation: clear to auscultation bilaterally Cardio Rhythm: regular rhythm Heart sounds: S1 normal heart sound present and S2 normal heart sound present GI Inspection: Yes normal to inspection Palpation (GI): Soft to palpation Percussion: Yes normal to percussion Auscultation: normal bowel sounds Coding Level of Care Code Est Pt Level 4 (87099) Complex EM visit Add On G2211 Diagnoses Orthostatic hypotension dysautonomic syndrome G90.3 Anxiety and depression F41.9; F32.A Dysphagia R13.10 Gait instability R26.81 Additional Codes MONA-7 Assessment Billing - MONA-7 Assessment Tool: MONA-7 Assessment 76315 ([id number]) PHQ-9 - 23557 - PHQ-9 Billing: Yes ([id number]) Assessment & Plan Assessment & Plan (1) Orthostatic hypotension dysautonomic syndrome: Code(s): G90.3 - Multi-system degeneration of the autonomic nervous system Category: Medical Plan: Continue current medications follow-up with Cardiology (2) Anxiety and depression: Comment: F/U WITH PSYCHIATRY Code(s): F41.9 - Anxiety disorder, unspecified; F32.A - Depression, unspecified Category: Medical Plan: Continue current medications follow-up with psychiatry (3) Dysphagia: Comment: EGD at [facility] 2020, negative bx, barium swallow: severe esophageal dysmotility, EGD 10/2024 status post LES and UES dilatation Code(s): R13.10 - Dysphagia, unspecified Category: Medical Plan: CONTINUE PPI FOLLOW-UP WITH GI (4) Gait instability: Comment: bp? Hypotensive? Code(s): R26.81 - Unsteadiness on feet Category: Medical Plan: Patient was advised to start regular physical activity including stationary bike exercises at least 15 minutes 5 times a week, she completed physical therapy Orders: Orders [facility] [place]. Panel Fast Today F32.A - Depression, unspecified, F41.9 - Anxiety disorder, unspecified, G90.3 - Multi-system degeneration of the autonomic nervous system, R13.10 - Dysphagia, unspecified Complete Blood Count Auto Diff Today F32.A - Depression, unspecified, F41.9 - Anxiety disorder, unspecified, G90.3 - Multi-system degeneration of the autonomic nervous system, R13.10 - Dysphagia, unspecified TSH reflex Free T4 Today F32.A - Depression, unspecified, F41.9 - Anxiety disorder, unspecified, G90.3 - Multi-system degeneration of the autonomic nervous system, R13.10 - Dysphagia, unspecified Vitamin D 25-OH Total Today F32.A - Depression, unspecified, F41.9 - Anxiety disorder, unspecified, G90.3 - Multi-system degeneration of the autonomic nervous system, R13.10 - Dysphagia, unspecified Lipid Panel Today F32.A - Depression, unspecified, F41.9 - Anxiety disorder, unspecified, G90.3 - Multi-system degeneration of the autonomic nervous system, R13.10 - Dysphagia, unspecified Vitamin B12 and Folate Today F32.A - Depression, unspecified, F41.9 - Anxiety disorder, unspecified, G90.3 - Multi-system degeneration of the autonomic nervous system, R13.10 - Dysphagia, unspecified
--- OUTSIDE RECORDS SUMMARY | 2025-01-08 13:51 | XMS_ITS | Clinical Summary ---
Author Organization [facility] [address] [facility] Address [address] [facility] [address] Phone Care Team Providers Care Hospital Social Worker Name Role Phone Vonnie Cali DO Primary [...] 1 endometrial adenocarcinoma. Patient is referred to [facility] oncology at [facility]. She underwent total hysterectomy on 05/09/[address] Mora at [facility]. Nodes were negative. She did not require RT or Chemotherapy. Encounters Date Type Department Care Team Description 12/04/2024 3:00 PM EDT Office Visit Obstetrics and Gynecology [facility] [address] [place] [id number] Kaci Oscar CNM Sensation of skin crawling (Primary Dx); Nonintractable headache, unspecified chronicity pattern, unspecified headache type; Insomnia, unspecified type 12/04/2024 Telephone Obstetrics and Gynecology - [address] [phone] Kaci Oscar CNM Medication Problem from Last 3 Months Surgical History Surgery Date Site/Laterality Comments TONSILLECTOMY ADENOIDECTOMY, BILATERAL MYRINGOTOMY AND TUBES age 8 PROCEDURE: [place] TONSILLECTOMY & ADENOIDECTOMY <AGE 13 ROBOTIC ASSISTED HYSTERECTOMY 05/09/2017 PROCEDURE: HISTORICAL ROBOTIC HYSTERECTOMY WITH OR WITHOUT BSO Medical History Medical History Date Comments Celiac disease 2007 DX:Celiac diseas e Other and unspecified noninf ectious gastroenteritis and colitis(558.9) 2003 DX:Other and unspec ified noninfectious gastroenteritis and colitis(558.9); COMMENT: viral syndrome PTSD (post-traumatic stress disorder) DX:PTSD (post-traumatic stress disorder); COMMENT: Abusive Endometrial cancer ([facility] V24, [facility] V28) 04/29/2017 DX:Endometrial cancer ([facility]); COMMENT: Endometrial biopsy performed on April 26, 2017 showed grade 1 endometrial adenocarcinoma. Patient is referred to [facility] oncology at [facility]. She underwent total hysterectomy on 05/09/[address] Mora at [facility]. Nodes were negative. She did not [...] MEDICARE [facility] Care Teams Hospital Social Worker Relationship Specialty Start Date End Date Vonnie Cali DO [address] [facility] [address] [place] [address] PCP - General 04/29/17
== END 2025-01-08 12:23 | disposition home or self-care (01) ==
LOC: HO.HMCC 11:32
PROVIDERS: PCP Internal Medicine; Visit Provider Internal Medicine
DX: G90.3 Multi-system degeneration of the autonomic nervous system (principal); F41.9 Anxiety disorder, unspecified; F32.A Depression, unspecified; R13.10 Dysphagia, unspecified; R26.81 Unsteadiness on feet

== ENCOUNTER → 2025-01-08 11:31 | Outpatient (BNVA) | payer MEDICARE, SELFPAY | PROVIDERS: PCP Internal Medicine; Visit Provider Internal Medicine | DX: G90.3 Multi-system degeneration of the autonomic nervous system (principal); F41.9 Anxiety disorder, unspecified; F32.A Depression, unspecified; R13.10 Dysphagia, unspecified; R26.81 Unsteadiness on feet | CPT/HCPCS: 96127; 99212 ==

== ENCOUNTER 2025-01-18 12:18 | Outpatient (REF) | payer MEDICARE, SELFPAY ==
--- OUTSIDE RECORDS SUMMARY | 2024-05-28 11:00 | XMS_ITS | Continuity of Care Document ---
Author Organization [facility] Address [address] [place] [address] Phone Care Team Providers Care Row Boss Hoeing Name Role Phone Sesar QUINTERO, RVT, RPVI, [...] Mins- [place] & [place] [facility], [address] [place] [address] Dr Mccollum [facility] [address], [id number], [place] tel:[phone] [facility] - [place] Venous insufficiency (chronic) (peripheral)E ssential (primary) hypertension 4 Sesar QUINTERO, RVT, RPASH Roper. [address] [facility], [address], [place], [place], [id number], [place]. tel:[phone] Referring Provider: Celestina Zimmerman MD S, [address] [place] [address], [address]. tel:[phone] [facility]epti [facility], [address] [place] [address] Dr Mccollum 1000[address], [place], [id number], [place] tel:[phone] CVR [facility] Chronic venous hypertension (idiopathic) with other complications of right lower extremity Oct-2 4 Sesar QUINTERO RVT, RPVI Robert. [address] [place] [address], Suite [facility], [place], [id number], [place]. tel:[phone] Referring Provider: Celestina Zimmerman MD S, [address] [place] [address], [place], [address]. tel:[phone] [facility], [address] [place] [address] Dr Mccollum [address]SuAnuj weathers [place], [id number], [place] tel:[phone] CVR - [place] - [place] Encounter for follow-up examination after completed treatment for conditions other than malignant nePain in right leg Sep-2 4 Sesar QUINTERO RVT, RPVI Robert. [address] [place] [address], Suite [facility], [place], [id number], [place]. tel:[phone] Referring Provider: Celestina Zimmerman MD S, [address] [place] [address], [place], [address]. tel:[phone] Riparius [facility], [address] [place] [address] Dr Mccollum 1000Suite Anuj Zaldivar [place], [id number], [place] tel:[phone] CVR - [facility] Varicose veins of right lower extremity with other complications Sep-2 4 Sesar QUINTERO RVT, RPVI Robert. [address] [place] [address], Suite [facility], [place], [id number], [place]. tel:[phone] Referring Provider: Celestina Zimmerman MD S, [address] [place] [address], [place], [address]. tel:[phone] Office/Outpt E&M Established 15 Mins- [place] & [place] [facility], [address] [place] [address] Dr Mccollum 1000SuAnuj weathers [place], [id number], [place] tel:[phone] CVR - [facility] Chronic venous hypertension (idiopathic) without complications of bilateral lower extremity Sep-1 4 Sesar QUINTERO RVT, RPVI Robert. [address] [place] [address], [address], [place], [id number], [place]. tel:[phone] Referring Provider: Celestina Zimmerman MD S, [address] [place] [address], [place], [address]. tel:[phone] Deepti [facility], [address] [place] [address] Dr Mccollum 1000Suite 1000Anuj [place], [id number], [place] tel:[phone] CVR - [place] Encounter for follow-up examination after completed treatment for conditions other than malignant nePain in right leg 4 Sesar QUINTERO RVT, SUMEET Roper. [address] [place] [address], [place] [address], [facility] [place], [id number], [place]. tel:[phone] Referring Provider: Celestina Zimmerman MD S, [address] [place] [address], [address]. tel:[phone] Deepti [facility], [address] [place] [address] [facility] [place] [address]An[place], [id number], [place] tel:[phone] CVR - [place] [facility] Encounter for follow-up examination after completed treatment for conditions other than malignant nePain in right lower leg 4 Sesar QUINTERO RVT, SUMEET Roper. [address] [place] [address], [place] [address], [place], [id number], [place]. tel:[phone] Referring Provider: Celestina Zimmerman MD S, [address] [place] [address], [address]. tel:[phone] [facility]ept[facility], [address] [place] [address] Dr Mccollum 1000Suite 1000Anuj [place], [id number], [place] tel:[phone] CVR - [place] [facility] Encounter for follow-up examination after completed treatment for conditions other than malignant neChronic venous hypertension (idiopathic) with other complications of right lower extremity 4 Sesar QUINTERO RVT, SUMEET Roper. [address] [place] [address], Suite [facility], [place], [id number], [place]. tel:[phone] Referring Provider: Celestina Zimmerman MD S, [address] [place], [place] [address], [place], [address]. tel:[phone] [facility] MD TORRES, [address] [place] [address] Dr Mccollum 1000SuAnuj weathers [place], [id number], [place] tel:[phone] CVR - [place] Chronic venous hypertension (idiopathic) with inflammation of right lower extremity 0 4 Owen Cole. [address] [facility], [address], [facility] [place], [id number], [place]. tel:[phone] Referring Provider: Celestina Zimmerman MD S, [address] [place] [address], [place], [address]. tel:[phone] Deept[facility] MD TORRES, [address] [place] [address] Dr Mccollum 1000SuAnuj weathers [place], [id number], [place] tel:[phone] CVR - [place] Varicose veins of right lower extremity with other complications 4 Sesar QUINTERO RVT, SUMEET Roper. [address] [facility], [place] [address], [facility] [place] [place], [id number], [place]. tel:[phone] Referring Provider: Celestina Zimmerman MD S, [address] [place] [address], [place], [address]. tel:[phone] Office/Outpt E&M Established 25 Mins- [place] & [place] [facility], [address] [place] [address] Dr Mccollum 1000SuAnuj weathers [place], [id number], [place] tel:[phone] CVR - [place] Chronic venous hypertension (idiopathic) with other complications of bilateral lower extremity 4 Sesar QUINTERO RVT, RPVI Robert. [address] [facility], [address], [facility] [place] [place], [id number], [place]. tel:[phone] Referring Provider: Celestina Zimmerman MD S, [address] [place] [address], [place], [address]. tel:[phone] [facility] MD TORRES, [address] [place] [address] Dr Mccollum 1000SuAnuj weathers MD, [id number], [place] tel:[phone] CVR - [facility] Chronic venous hypertension (idiopathic) with other complications of bilateral lower extremity 4 Sesar QUINTERO RVT, RPVI Robert. [address] [place] [address], [place], [place], [id number], [place]. tel:[phone] Referring Provider: Celestina Zimmerman MD S, [address] [place] [address], [place], [address]. tel:[phone] [facility], [address] [place] [address] Dr Mccollum 1000Suite Anuj Zaldivar [place], [id number], [place] tel:[phone] CVR - [facility] Venous insufficiency (chronic) (peripheral)N evus, non-neoplasti c 4 Owen Cole. [address] [place] [address], [place], [place], [id number], [place]. tel:[phone] Referring Provider: Celestina Zimmerman MD S, [address] [place] [address], [place], [address]. tel:[phone] Office/Outpt E&M Established 15 Mins- [place] & [place] [facility], [address] [place] [address] Dr Mccollum 1000Suite 1000Anuj [place], [id number], [place] tel:[phone] CVR - [facility] Essential (primary) hypertensionV enous insufficiency (chronic) (peripheral)P ain in right lower legChronic venous hypertension (idiopathic) without complications of bilateral lower extremity 4 Sesar QUINTERO, SURESH, SUMEET Roper. [facility] [place] [address], [place], [place], [id number], [place]. tel:[phone] Referring Provider: Celestina Zimmerman MD S, [address] [place] [address], [place], [address]. tel:[phone] Office/Outpt E&M Established 15 Mins [facility], [address] [place] [address] Dr Mccollum 1000Suite 1000Anuj [place], [id number], [place] tel:[phone] CVR - [place] Localized edemaVenous insufficiency (chronic) (peripheral)E ssential (primary) hypertension 4 Darrell Henao. [address] [facility] [address], [facility] [place], [id number], [place]. tel:[phone] Referring Provider: Celestina Zimmerman MD S, [address] [place] [address], [place], [address]. tel:[phone] [facility], [address] [place] [address] [facility] 1000Suite 1000Anuj [place], [id number], [place] tel:[phone] [facility] - [facility] Chronic venous hypertension (idiopathic) with other complications of bilateral lower extremity 4 Sesar QUINTERO, JUVENTINOT, VI Judson. [address] [place] [address], [facility] [place], [id number], [place]. tel:[phone] Referring Provider: Celestina Zimmerman MD S, [address] [place] [address], [place], [address]. tel:[phone] [facility], [address] [place] [address] [facility] 1000Suite 1000Anuj [place], [id number], [place] tel:[phone] CVR - [facility] Encounter for follow-up examination after completed treatment for conditions other than malignant nePain in left leg May- 3 Liam QUINTERO FACS RVT ASH Cha. [facility] [place] [address], [place], [address], [place]. tel:[phone] Referring Provider: Shad Wheeler MD FACS RVT RP, [address] [place] [address], [place], [address]. tel:[phone] [facility], [address] [place] [address] [address] 1000Anuj [place], [id number], [place] tel:[phone] CVR - [facility] Chronic venous hypertension (idiopathic) with inflammation of left lower extremity May- 3 Sesar QUINTERO RVT, RPVI Judson. [address] [place] [address], Suite [facility], [facility] [place], [id number], [place]. tel:[phone] Referring Provider: Shad Wheeler MD FACS RVT RP, [facility] [facility] [address], [facility] [place], [address]. tel:[phone] [facility], [address] [place] [address] Dr [address], [place], [id number], [place] tel:[phone] CVR - [place] - [place] Encounter for follow-up examination after completed treatment for conditions other than malignant nePain in right leg Sep-2 3 Liam QUINTERO FACS RVT [facility] Shad Cha. [facility], [address], [place], [address], [place]. tel:[phone] Referring Provider: Shad Wheeler MD FACS RVT [facility], [address] [place] [address] Suite [facility], [facility] [place], [address]. tel:[phone] [facility], [address] [place] [address] [address], [place], [id number], [place] tel:[phone] CV[place] - [place] Chronic venous hypertension w inflammation of r low extrem Sep-2 3 Sesar QUINTERO, RVT, [facility] Judson. [address] [place] [address], Suite [facility], [place], [id number], [place]. tel:[phone] Referring Provider: Shad Wheeler MD FACS T [facility], [address] [place] [address] [address], [facility] [place], [address]. tel:[phone] Office/Outpt E&M Established 10 Mins - Telemedicine [facility], [address] [place] [address] [address], [place], [id number], [place] tel:[phone] CV[place] - [place] Chronic venous htn w oth comp of bilateral low extrm Sep-1 3 Liam QUINTERO FACS RVT ASH Cha. [address] [place] [address], [address], [place], [address], [place]. tel:[phone] Referring Provider: Shad Wheeler MD FACS RVT [facility], [address] [place] [address] [address], [place], [address]. tel:[phone] [facility], [address] [place] [address] [address], [place], [id number], [place] tel:[phone] CVR - [place] Pain in right legPain in left leg 3 Liam QUINTERO [facility] Shad Cha. [address] [facility], [address], [facility] [place], [address], [place]. tel:[phone] Referring Provider: Shad Wheeler MD [facility], [address] [place] [address] [address], [facility] [place], [address]. tel:[phone] Office/Oupt E&M New Pt 45 Mins [facility], [address] [place] [address] [address], [place], [id number], [place] tel:[phone] CVR - [place] Chronic venous htn w oth comp of bilateral low extrmPain in right lower legPain in left lower legPain in right legRestless legs syndromeEssen tial (primary) hypertensionP ain in left legCramp and spasmLocalize d edema 3 Liam QUINTERO [facility] Shad Semaj. [address] [place] [address], Suite [facility], [facility] [place], [address], [place]. tel:[phone] Referring Provider: Shad Wheeler MD [facility], [address] [place] [address], [facility] [place], [address]. tel:[phone] Family History Family Member Type Diagnosis Age At Onset No Information Payers Payer name Insurance type Covered green party ID Authorsaraha tirosa(s) Medicare DANYELL VALADEZ [id number] [facility] DANYELL [id number] Social History Type Description Quantity Date Captured [...] B kandi mass index (BMI) 28.0-28.9, adult Diet education [...] with other complications of bilateral lower extremity Compression stocking usage as conservative measure Related to Pain in right lower leg Lifestyle education Related to B kandi mass index (BMI) 30.0-30.9, adult Giving Encouragement to exercise Related to Body mass index (BMI) 30.0-30.9, adult Diet education Related to Body mass index (BMI) 30.0-30.9, adult Patient education booklet given Related to Pain in right lower leg Diet education Related to Body mass index (BMI) 30.0-30.9, adult Giving Encouragement to exercise Related to Body mass index (BMI) 30.0-30.9, adult Lifestyle education Related to B kandi mass index (BMI) 30.0-30.9, adult Patient education booklet given Related to Localized edema Diet education Related to Body mass index (BMI) 30.0-30.9, adult Giving Encouragement to exercise Related to Body mass index (BMI) 30.0-30.9, adult Lifestyle education Related to B kandi mass index (BMI) 30.0-30.9, adult Patient education booklet given Related to Chronic venous htn w oth comp of bilateral low extrm Pre and post instruc tions reviewed and provided Related to Chronic venous htn w oth comp of bilateral low extrm Assessments Type Assessment Date No Information Patient Care Teams Name Effective Dates (start - stop) Status Members No Information
[2025-01-18 16:08] LABS: MANUAL DIFF FLAG NO
[2025-01-18 16:17] LABS: Basophils Absolute Auto 0.1 X10*3/uL (0.0-0.2); Basophils Percent Auto 1.2 % (0-2); Eosinophils Absolute Auto 0.2 X10*3/uL (0.0-0.4); Eosinophils Percent Auto 3.2 % (0-4); Hematocrit 41.9 % (37.0-47.0); Hemoglobin 13.9 g/dl (12.0-16.0); Imm Gran Abs Auto 0.01 X10*3/uL (0.00-0.03); Imm Gran Pct Auto 0.2 % (0.0-0.4); Lymphocytes Absolute Auto 1.1 X10*3/uL (1.2-4.9); Lymphocytes Percent Auto 18.8 % (20-40); Mean Corpuscular HGB Conc 33.2 g/dl (31.0-35.0); Mean Corpuscular Hemoglobin 29.4 pg (27.0-33.0); Mean Corpuscular Volume 88.6 fL (80.0-98.0); Mean Platelet Volume 11.1 fL (9.4-12.3); Monocytes Absolute Auto 0.6 X10*3/uL (0.1-1.2); Monocytes Percent Auto 9.9 % (2-11); Neutrophils Percent Auto 66.7 % (45-73); Platelet Count 265 X10*3/uL (160-400); Red Blood Count 4.73 X10*6/uL (4.20-5.50); Red Cell Distribution Width 14.2 % (11.0-16.0)
[2025-01-18 16:39] LABS: Alanine Aminotransferase 40 U/L (0-31); Albumin Level 4.8 g/dL (3.5-5.0); Alkaline Phosphatase 108 U/L (39-117); Anion Gap 15 (12-20); Aspartate Amino Transferase 54 U/L (5-31); Bilirubin Total 0.5 mg/dL (0.0-1.0); Blood Urea Nitrogen 21 mg/dL (9-16); Calcium 9.9 mg/dL (8.4-10.2); Carbon Dioxide 27 mmol/L (22-29); Chloride 102 mmol/L (96-108); Cholesterol 239 mg/dL (<200); Estimated Glomerular Filt Rate 52; Glucose Fasting 84 mg/dL (60-99); HDL Cholesterol 63 mg/dL (>40); LDL Cholesterol Calculated 156 mg/dL (<100); Potassium 3.9 mmol/L (3.3-5.1); Sodium 140 mmol/L (135-145); Total Protein 7.7 g/dL (6.5-8.0); Triglycerides 101 mg/dL (<150)
[2025-01-18 16:42] LABS: TSH reflex Free T4 2.61 uIU/mL (0.32-4.0); Vitamin D 25-OH Total 74.7 ng/mL (>30)
[2025-01-18 16:57] LABS: Folate 14.6 ng/mL (> or = 4.0); Vitamin B12 601 pg/mL (200-900)
== END 2025-01-18 12:19 | disposition home or self-care (01) ==
LOC: HO.HMGCLDS 12:18
PROVIDERS: PCP Internal Medicine; Visit Provider Internal Medicine
DX: G90.3 Multi-system degeneration of the autonomic nervous system (principal); R13.10 Dysphagia, unspecified; F41.9 Anxiety disorder, unspecified; F32.A Depression, unspecified
CPT/HCPCS: 36415; 80053; 80061; 82306; 82607; 82746; 84443; 85025

== ENCOUNTER 2025-02-25 14:47 | Outpatient (REF) | payer MEDICARE, SELFPAY ==
--- NOTE | ~2025-02-25 | FL_ITS ---
EXAMINATION: Modified Barium Swallow CLINICAL INFORMATION: Dysphagia COMPARISON: None TECHNIQUE: Modified barium swallow was performed under lateral fluoroscopy with patient in standing position. Barium mixed with solids and liquids of different consistencies was administered by the speech pathologist. Examination was recorded in the fluoroscopy suite. FINDINGS: There was consistent flash penetration on thin liquids. There was no subglottic aspiration. There was mild cricopharyngeal achalasia noted throughout the examination. FLUOROSCOPY TIME: 1 minute 10 seconds Number of Spot Images: N/A DOSE AREA PRODUCT: 744.1 uGy-m2 (microgray-meter squared) FL/FL Modified Barium Swallow IMPRESSION: Consistent flash penetration on thin liquids, without subglottic aspiration. Mild cricopharyngeal achalasia. Refer to the full speech therapy report to follow for further detail. Electronically signed by: Juliano Mead MD 02/25/2025 03:33 PM EDT
--- OUTSIDE RECORDS SUMMARY | 2025-02-25 15:20 | XMS_ITS | Clinical Summary ---
Author Organization [facility] Address [address] [place] [address] Care Team Providers Care Bowling Pin Refinisher Name Role Phone Unavailable Primary Care Provider Unavailabl e Social History Tobacco Use Types Packs/Day Years Used Date Smoking Tobacco: Never Assessed Comments Unknown Sex and Gender Information Value Date Recorded Sex Assigned at Not on file Legal Sex Female 2:45 PM EDT Gender Identity Not on file Sexual Orientation Not on file Plan of Treatment Upcoming Encounters Date Type Department Care Team (Late st Contact Info) Description 03/28/2025 3:00 PM EDT Clinical Support [facility] [address], [place] [address] Erich Mckeon MD [address] [place] [address] [id number] Health Maintenance Due Date Last Done Comments Hepatitis C Virus Screening 1950 DTaP/Tdap/Td Vaccines (1 - Tdap) 10/08/1970 Mammogram 1991 Colonoscopy 10/08/1996 Pneumococcal Vaccines 50+ (1 of 1 - PCV) 10/08/2001 Zoster (Shingles) Vaccine (1 of 2) 10/08/2001 DXA Bone Density (Females,Ag es 65 and older) 10/08/2016 COVID-19 Vaccine ( - 2023-2 5 season) 2024 Influenza Vaccine 03/01/2025 RSV Vaccine 60 years and old er and Patients (1 - 1-dose 75+ series) 10/08/2026 Hepatitis B Vaccines Aged Out No long er eligible based on patient's age to complete this topic Insurance MEDICARE PART A & B [place] [id number]
--- OUTSIDE RECORDS SUMMARY | 2025-02-25 15:20 | XMS_ITS | Encounter Summary ---
Author Organization [facility] Address [address] [place] [address] [place] [address] Phone Care Team Providers Care Java Security Architect Name Role Phone Mikaela Dickens PRIVATE DUTY AIDE Primary Care Provider Griselda Ha NP Unavailable [phone] Celestina Zimmerman MD Primary Care Provider Reason for Referral * MRI/CAT Scan - Closed Specialty Diagnoses / Procedures Referred By Contac t Referred To Contact Procedures MRI Brain Outside (No Interpretation) System, Provider Not In, PhD [employer] [address] Referral ID Status Reason Start Date Expiration Date Visits Re quested Visits Authorized [id number] Closed 01/12/2019 01/12/2020 1 1 Encounter Details Date Type Department Care Team (Late st Contact Info) Description 01/12/2019 Ancillary Orders [facility],Outside Imaging [address] [place] [address] System, Provider Not In, PhD [facility] [address] [place] [address] Social History Tobacco Use Types Packs/Day Years Used Date Smoking Tobacco: Never Assessed Comments Unknown Sex and Gender Information Value Date Recorded Sex Assigned at Female 11/28/2024 4:13 PM EDT Legal Sex Female 10:00 PM EDT Gender Identity Female 11/28/2024 4:13 PM EDT Sexual Orientation Straight 11/28/2024 4: 13 PM EDT documented as of this encounter Plan of Treatment Upcoming Encounters Date Type Department Care Team (Late st Contact Info) Description 02/28/2025 2:40 PM EDT Office Visit [facility] Rheumatology at [address] [place] [address] Noelle Wooten MD [address] [place] [phone] [email or web address] documented as of this encounter Results * MRI Brain Outside (No Interpretation) (03/25/2015 12:00 AM EDT) Narrative SYSTEMGENERATED, DOCUMENTATION - 01/12/2019 1:37 PM EDT This study is for PACS storage only and not for interpretation. us Provider Not In System PhD IMG OUTSIDE IMAGING W /OUT INTERPRETATION Final Result documented in this encounter Visit Diagnoses Not on filedocumented in this encounter Additional Health Concerns Infection Onset Date Last Indicated Resolved Time CoV-Risk 11/30/2021 11/30/2021 12/11/2021 1:22 AM EDT CoV-Risk 05/14/2023 05/14/2023 05/25/2023 1:22 AM EDT CoV-Risk 08/05/2023 08/05/2023 08/05/2023 8:55 PM EST COVID-19 08/05/2023 08/05/2023 08/26/2023 1:23 AM EST CoV-Risk 09/28/2023 09/28/2023 2023 1:22 AM EST documented as of this encounter Care Teams Java Security Architect Relationship Specialty Start Date End Date Mikaela Dickens NP [address] [place] [address] [place] [address] [email or web address] PCP - General Family Medicine 10/31/18 Celestina Zimmerman MD [address] [place] [address] [place] [address] PCP - General Internal Medicine 04/20/21 Griselda Ha NP [address] [place] [address] Family Medicine 02/14/20 documented as of this encounter Additional Source Comments The information contained in this document represents components of the legal health record. It is not the complete legal health record.[facility]
--- OUTSIDE RECORDS SUMMARY | 2025-02-25 15:20 | XMS_ITS | Patient Health Record ---
Author [facility]an Address [address] [facility] [place] [address] Care Team Providers Care Sodder Name Role Phone Celestina Zimemrman MD Primary Care Provider Alba Mir Unavailable [phone] Allergies Allergen (clinical drug ingredient) Drug/Non Drug Allergy documented on EMR Reaction Allergy Type Onset Date Status Substance with sulfonamide structure and antibacterial mechanism of action (substance) Sulfa Antibiotics Unknown Drug Allergy Active Reason For Referral No Information Medications Medication SIG (Take, Route, Frequency, Duration) Notes Start Date End Date Status Furosemide 40 MG TAKE 2 TABLETS BY MOUTH ONCE DAILY Oral; Duration: 90 Active busPIRone HCl 15 MG TAKE 1 TABLET BY CHAY TH AT BEDTIME FOR 2 WEEKS AND THEN TAKE 1 TABLET TWICE DAILY Oral; Duration: 37 Active Fluconazole 100 MG 1 tablet Orally sebas y; Duration: 5 days 01/15/2023 Active Doxycycline Monohydrate 100 MG 1 capsule Orally Once a day; Duration: 10 days 01/06/2023 Not-Taking oxyBUTYnin Chloride 5 MG Oral; Duration: 90 Active traZODone HCl 50 MG TAKE 1 TABLET BY CHAY TH AT BEDTIME Oral; Duration: 90 Active Albuterol Sulfate (2.5 MG/3ML) 0.083% 3 ml as needed Inhalation every 6 hrs Active Montelukast Sodium 10 MG Oral; Duration: 90 Active Lidocaine Viscous HCl 2 % Mouth/Throat; Duration: 3 Not-Taking Fluconazole 100 MG TAKE 1 TABLET BY CHAY TH ONCE DAILY Oral; Duration: 5 Not-Taking Atorvastatin Calcium 10 MG TAKE 1 TABLET BY MOUTH ONCE DAILY Oral; Duration: 90 Not-Taking Clopidogrel Bisulfate 75 MG TAKE 1 TABLET BY MOUTH ONCE DAILY Oral; Duration: 90 Not-Taking Mupirocin 2 % APPLY OINTMENT DAILY TO BIOPSY SITE ON RIGHT THIGH AND COVER WITH A BANDAID UNTIL HEALED External; Duration: 30 Not-Taking SUMAtriptan Succinate 100 MG TAKE 1 TABLET BY MOUTH EVERY 2 HOURS NEEDED FOR MIGRAINE, NOT TO EXCEED 200MG PER DAY Oral; Duration: 23 Not-Taking Estradiol 0.1 MG/24HR APPLY 1 PATCH TOPICALLY ON MONDAYS AND THURSDAYS Transdermal; Duration: 28 Not-Taking Ketoconazole 2 % APPLY CREAM TO FEET TWICE DAILY FOR 3 WEEKS, REPEAT NEEDED External; Duration: 30 Not-Taking Dicyclomine HCl 20 MG TAKE 1 TABLET BY M OUTH 4 TIMES DAILY Oral; Duration: 30 Unknown Omeprazole 40 MG Oral; Duration: 90 Active Nystatin 214067 UNIT/ML Mouth/Throat; Duration: 10 Not-Taking hydrALAZINE HCl 25 MG TAKE 1 TABLET BY M OUTH IN THE MORNING AND 3 TABLETS AT 6PM Oral; Duration: 90 Active Sertraline HCl 100 MG TAKE 2 TABLETS BY MOUTH ONCE DAILY Oral; Duration: 90 Active amLODIPine Besylate 10 MG Oral; Duration: 90 Active LORazepam 1 MG Oral; Duration: 90 Active Labetalol HCl 100 MG TAKE 1 TABLET BY MO UTH TWICE DAILY Oral; Duration: 90 Active Levothyroxine Sodium 75 MCG TAKE 1 TABLET BY MOUTH ONCE DAILY Oral; Duration: 90 Active Spironolactone 25 MG TAKE 2 TABLETS (50 MG) BY MOUTH DAILY Oral; Duration: 90 Active Gabapentin 600 MG TAKE 1 TABLET BY CHAY TH 4 TIMES DAILY Oral; Duration: 90 Active Social History Tobacco Use: Social [...] Risk Notes Problem Chronic ulcer of foot (749562294) Non-pressure chronic ulcer of other part of left foot with fat layer exposed (L97.522) Active confirmed Problem Non-pressure ulcer of left lower extremity, limited to breakdown of skin (L97.921) Active confirmed Problem Acquired hammer toe of left foot (9640492912723 103) Hammer toe of left foot (M20.42) Active confirmed Problem Ulcer of left lower leg (disorder) (1276784125438 9103) Non-pressure ulcer of left lower extremity with fat layer exposed (L97.922) Active confirmed Problem Non-pressure ulcer of right lower extremity with fat layer exposed (L97.912) Active confirmed Vital Signs Blood pressure diastolic 55 mm Hg 09/28/2024 Height 5ft5in in 09/28/2024 Blood pressure systolic 120 mm Hg 09/28/2024 Weight 185 lbs 09/28/2024 BMI 30.78 kg/m2 09/28/2024 Encounters Encounter Location Date Provider Diagnosis [facility] [address] [place] [address] 09/28/2024 Alba Caal Ingrown nail L60.0 Assessments Encounter Date Diagnosis (ICD Code) Assessment Notes Treatment Notes Treatment Clinical Notes Section Notes 09/28/2024 Ingrown nail (ICD-10 - L60.0) Plan Of Treatment Pending Test Test Name Order Date [id number] SKIN/TISSUE 01/06/2023 Insurance Providers Payer Name Payer Address Payer Phone Subscriber Number Group Number Insured Name Patient Relationship to Insured Coverage Start Date Coverage End Date Medicare National [employer] [address] [facility] [address] [id number] Sana Mireles Self - patient is the insured [employer] [address] [place] [address] [id number] Sana Mireles Self - patient is the insured Medical (General) History Medical History History ICD Code Anxiety Cancer Measles Mumps Chicken pox Headaches/Migraines High blood pressure Psychiatric disorder Celiac disease Surgical History Surgery Date(Month/Year) hysterectomy Hospitalization History Reason Date(Month/Year) C- CHF, respiratory issues 09/2022
--- OUTSIDE RECORDS SUMMARY | 2025-02-25 15:20 | XMS_ITS | Clinical Summary ---
Author Organization [facility] [address] [facility] Address [address] [facility] [place] [address] Phone Care Team Providers Care General Car Yard Supervisor Name Role Phone Vonnie Cali DO Primary [...] 1 endometrial adenocarcinoma. Patient is referred to ENDOCRINOLOGY SPECIALIST oncology at [facility]. She underwent total hysterectomy on 05/09/[address] Mora at [facility]. Nodes were negative. She did not require RT or Chemotherapy. Encounters Date Type Department Care Team Description 12/04/2024 3:00 PM EDT Office Visit Obstetrics and Gynecology [facility] [address] [place] [phone] Kaci Oscar CNM Sensation of skin crawling (Primary Dx); Nonintractable headache, unspecified chronicity pattern, unspecified headache type; Insomnia, unspecified type 12/04/2024 Telephone Obstetrics and Gynecology - [address] [phone] Kaci Oscar CNM Medication Problem from Last 3 Months Surgical History Surgery Date Site/Laterality Comments TONSILLECTOMY ADENOIDECTOMY, BILATERAL MYRINGOTOMY AND TUBES age 8 PROCEDURE: [place] TONSILLECTOMY & ADENOIDECTOMY <AGE 13 ROBOTIC ASSISTED HYSTERECTOMY 05/09/2017 PROCEDURE: HISTORICAL ROBOTIC HYSTERECTOMY WITH OR WITHOUT BSO Medical History Medical History Date Comments Celiac disease 2007 DX:Celiac diseas e Other and unspecified noninf ectious gastroenteritis and colitis(558.9) 2003 DX:Other and unspec ified noninfectious gastroenteritis and colitis(558.9); COMMENT: viral syndrome PTSD (post-traumatic stress disorder) DX:PTSD (post-traumatic stress disorder); COMMENT: Abusive Endometrial cancer ([facility] V24, [facility] V28) 04/29/2017 DX:Endometrial cancer ([facility]); COMMENT: Endometrial biopsy performed on April 26, 2017 showed grade 1 endometrial adenocarcinoma. Patient is referred to ENDOCRINOLOGY SPECIALIST oncology at [facility]. She underwent total hysterectomy on 05/09/[address] Mora at [facility]. Nodes were negative. She did not [...] Panel) 07/04/2022 Colorectal Cancer Screening: Colonoscopy 07/04/2022 Falls Risk Assessment 07/04/2022 Hepatitis C Screening 07/04/2022 Medicare Annual Wellness Visit 07/04/2022 Osteoporosis Screening (Bone Density Screening) 07/04/2022 Social Influencers of Health Screening 07/04/2022 COVID-19 Vaccine ( season) 2024 07/09/2023, 05/17/2022, 11/27/2021, Additional history exists Depression Screening 08/01/2024 Influenza Vaccine (#1) 2025 , 09/11/2023, 05/19/2022, Additional history exists Hypertension/CHF/CAD Annual BMP Blood Test 05/21/2025 05/21/2024, 02/15/2022 DTaP,Tdap,and Td Vaccines (4 - Td or Tdap) 08/16/2026 08/16/2016, 09/29/2012, 08/01/2003 Pneumococcal Vaccine: 50+ Years Completed 05/19/2022, 03/27/2018, 03/22/2017, Additional history exists Zoster Vaccines Completed 11/18/2022, 08/02, 08/08/2015, Additional history exists RSV Immunization Adult Patients Completed 07/26/2023 HIB Vaccines Aged Out No longer eligi [...] age to complete this topic Insurance MEDICARE [facility] Care Teams General Car Yard Supervisor Relationship Specialty Start Date End Date Vonnie Cali DO [address] [facility] [address] [place] [address] PCP - General 04/29/17
--- OUTSIDE RECORDS SUMMARY | 2025-02-25 15:20 | XMS_ITS ---
Author Name [facility] Organization Unknown Care Team Organization Name Specialty Phone Email Start Date End [facility] 02/21/2025
--- NOTE | 2025-02-28 09:47 | MHC.SL.IMP ---
Date of Plan of Treatment: 02/25/25 Onset of Symptoms/Illness: 01/15/25 Date Treatment Started: 02/25/25 Admitting Diagnosis: Dysphagia Primary Speech & Language Diagnosis: R13.12 Oropharyngeal Phase Dysphagia Reason for Today's Visit: 78890 Modified Barium Swallow Study Pre-evaluation Dietary Consistencies: Regular Pre-evaluation Liquid Consistency: Thin Pre-evaluation Medication Administration: Whole with Liquid Medical History: Modified Barium Swallow Study Fluoroscopic Evaluation of Swallowing Function CPT Code 63270 Evaluation Year: 2024 Reason for Study: rule out achalasia- MBSS with tablet Referring Physician: Chun Vargas MD Evaluating Clinician: Radha Perez MA, CCC-AWARD MACHINE OPERATOR Study Number: 1 Patient Name: Sana De Jesus Status: Outpatient, Ambulatory Age: 74 Sex: Female Medical History Medical History Spondylosis, cervical Headache Cervicalgia Chronic rhinitis Pulmonary nodule Pulmonary nodule Hearing loss Annual physical exam Dysphagia Vocal cord dysfunction Weight gain Edema Urinary incontinence Asthma History of concussion Shortness of breath Lower extremity edema Dyspnea Hypoxemia requiring supplemental oxygen Nonspecific interstitial pneumonitis Peripheral neuropathy Psychiatric disorder Mammogram normal Hyperlipemia Pulmonary hypertension DANIS on CPAP Pneumonitis Orthostatic hypotension dysautonomic syndrome Hypothyroid HTN (hypertension) Celiac disease Diastolic CHF Surgical History Hx of esophagogastroduodenoscopy History of total abdominal hysterectomy and bilateral salpingo-oophorectomy Endometrial adenocarcinoma History of colonoscopy Current (pre-evaluation) Intake/Diet: Route: PO Diet Grade: Regular Liquid Consistencies: Thin Pre-Study Functional Oral Intake Scale (FOIS): 7- Total oral intake with no restrictions Pain: None reported at time of study SUBJECTIVE: Patient is a 74 year old female referred for a modified barium swallow study by Chun Vargas MD from the [facility] in [place]. Patient reports globus sensation in her throat, particularly after swallowing solids. She was referred for this exam per Dr. Vargas, to ?rule out achalasia.? Patient did report having a gluten allergy upon her arrival, therefore did not trial prepared solids (saltine crackers, shortbread cookies). Pertinent medical history also includes pulmonary nodule, vocal cord dysfunction, asthma, hx concussion, and DANIS on CPAP. Oral Motor Exam Facial Symmetry: Symmetrical Mouth Occlusion: Normal Oral-Facial Teeth Characteristics: Intact/Normal Tongue Size: Normal Tongue Excursion Description: Normal Tongue Movement Characteristics: Normal/Absent Food and Liquid Trials: Oral Impairment: Lip Closure: Did not test Oral Impairment: Tongue Control During Bolus Hold: Did not test Oral Impairment: Bolus Preparation/Mastication: 0=Timely and efficient chewing and mashing Oral Impairment: Bolus Transport/Lingual Motion: 1= Delayed initiation of tongue motion Oral Impairment: Oral Residue: 1=Trace residue lining oral structures Oral Impairment:Initiation of Pharyngeal Swallow: 3=Bolus head in pyriforms Pharyngeal Impairment: Soft Palate Elevation: 0=No bolus between soft palate (SP)/pharyngeal wall (PW) Pharyngeal Impairment: Laryngeal Elevation: 1=Partial thyroid cartilage/arytenoids to epiglottic petiole movement Pharyngeal Impairment: Anterior Hyoid Excursion: 1=Partial anterior movement Pharyngeal Impairment: Epiglottic Movement: 1=Partial inversion Pharyngeal Impairment: Laryngeal Vestibular Closure:: 1=Incomplete: narrow column air/contrast in laryngeal vestibule Pharyngeal Impairment: Pharyngeal Stripping Wave: 0=Present: complete Pharyngeal Impairment: Pharyngeal Contraction: Did not test Pharyngeal Impairment: Pharyngoesophageal Segment Openin=Partial distention/partial duration: partial obstruction of flow Pharyngeal Impairment: Tongue Base (TB) Retraction: 0=No contrast between tongue base and posterior pharyngeal wall Pharyngeal Impairment: Pharyngeal Residue: 0=Complete pharyngeal clearance Pharyngeal Impairment: Esophageal Clearance Upright Position: Did not test Impressions and Recommendations OBJECTIVE: Time-out: performed at 14:45 Evaluation Start: 14:30; Stop: 14:35 Patient Positioning: Standing Viewing Planes: LATERAL ONLY Contrast: MBSImP? Standardized Protocol using commercially prepared, standardized Barium viscosities, including: Varibar? THIN LIQUID (40% w/v, <15 cps) , Varibar? PUDDING (40% w/v, <5162-1999 cps) MBSImP ID: [id number] MBSImP Results: Lip closure for intraoral bolus containment could not be assessed due to logistical reasons not related to physiologic impairment. Tongue control during bolus hold could not be assessed due to logistical reasons not related to physiologic impairment. Bolus preparation and mastication resulted in timely and efficient chewing and mashing. Bolus transport/lingual motion demonstrated delayed initiation of tongue motion. Oral residue was a trace, lining oral structures. Initiation of the pharyngeal swallow occurred when the bolus head was in the pyriform sinuses. Soft palate elevation resulted in no bolus between the soft palate and the pharyngeal wall. Laryngeal elevation was decreased, with partial superior movement of the thyroid cartilage/partial approximation of the arytenoids to the epiglottic petiole. Anterior hyoid excursion demonstrated partial anterior movement. Epiglottic movement resulted in partial inversion. Laryngeal vestibular closure was incomplete, with a narrow column of air/contrast noted within the laryngeal vestibule at the height of the swallow. Pharyngeal stripping wave was present and complete. Pharyngeal contraction could not be determined due to logistical reasons not related to physiologic impairment. Pharyngoesophageal segment opening demonstrated partial distension/partial duration, with partial obstruction of bolus flow. Tongue base retraction allowed no contrast between the retracted tongue base and the posterior pharyngeal wall. Pharyngeal residue was not present. There was complete pharyngeal clearance. Esophageal clearance in the upright position could not be assessed due to logistical reasons not related to physiologic impairment. Oral Impairment Score: 4 (absence of score, component 1component 2) Pharyngeal Impairment Score: 5 (absence of score, component 13) Esophageal Impairment Score: --- (absence of score, component 17) Laryngeal Penetration and Aspiration: Neither penetration nor aspiration was observed in today's study with Pudding-thick. Penetration was observed in today's study. Thin Contrast entered the airway, remained above the vocal folds, and was ejected from the airway. ASSESSMENT: This exam was performed by the radiologist and the speech pathologist. Patient was standing for lateral view. She fed herself without difficulty and trialed the following consistencies: Thin (via single cup sips and rapid sequential cup sips) Puree (mixture applesauce with barium pudding) Soft Solid (mixture chicken salad with barium pudding) Mastication was timely and efficient. Posterior lingual transport was mildly delayed in initiation, but with brisk lingual movement. Trace lingual residue cleared on subsequent swallows. Pharyngeal swallow trigger was delayed, initiated as the bolus head reached the pyriform sinuses. No evidence of nasopharyngeal reflux. Partial laryngeal elevation with partial epiglottic inversion and partial laryngeal vestibular closure. There as flash penetration seen consistently on trials of thin liquid, with no subsequent aspiration. A trace amount of contrast entered the laryngeal vestibule above the vocal folds and immediately cleared. No evidence of aspiration or penetration on trials of puree and soft solids. Complete pharyngeal clearance seen. Radiologist noted mild cricopharyngeal achalasia. There was no obstruction of flow through the pharyngoesophageal segment (PES) opening on these consistencies. Whole barium passed through the oral cavity, pharynx, and esophagus with no hang up. Liquid Intake Recommendation: Thin Liquid Intake Strategies: Dietary Recommendations: Regular Medication Administration: Whole with Liquid Please contact the pharmacy regarding appropriate crushable or liquid drug formulations that are available whenever modified delivery is recommended. Compensatory Strategies Recommended: Sitting Upright (90 deg) Small Bites and Sips Alternate Liquids/Solids Rate of Ingestion Change Recommendation for Speech Therapy: NA:Typical Evaluation Text Comment: Intake Recommendations: Route: PO Diet Grade: Regular Liquid Consistencies: Thin Post-Study Functional Oral Intake Scale (FOIS): 7- Total oral intake with no restrictions Flash penetration on trials of thin liquid, with no subsequent aspiration. No penetration or aspiration on other consistencies, including puree and soft solids. Good oral and pharyngeal clearance. Therapy Recommendations: Speech therapy and diet modification are not warranted at this time, as patient?s swallow in the oral and pharyngeal phases is deemed functional. Recommend continue on regular texture solids and thin liquids, as a precaution, take small bites/sips, chew food well, alternate with sips of liquid, maintain upright position while eating and drinking. Radiologist did note mild cricopharyngeal achalasia. Patient to continue workup with G.I. specialist. Clinician - Supplemental, Miscellaneous Communication: It is important to note MBSS objective studies are snapshots in time and Patient function might vary with factors such as time of day or concomitant medical conditions. For this reason, the final treatment plan for this patient should rest with their medical care team. Additional recommendations should be considered with the totality of the Patient in mind. Thank for the opportunity to participate in the care of this patient. If you have any questions about the content of this report, please contact the [facility]. Education: Education regarding findings from today's study and plans for therapy were provided to Patient only through Verbal Instruction. Understanding was expressed by the Patient only. Crossing Gateman Clinician/Clinical Fellow: No Supervisory Statement: N/A Speech Language Pathologist: Radha Perez M.A., CCC-AWARD MACHINE OPERATOR
== END 2025-02-25 14:48 | disposition home or self-care (01) ==
LOC: HO.XRAY 14:47
PROVIDERS: PCP Internal Medicine; Visit Provider Internal Medicine Gastroenterology
DX: R13.10 Dysphagia, unspecified (principal)
CPT/HCPCS: 74230; 92611

== ENCOUNTER → 2025-02-25 15:00 | Outpatient (BNV) | payer MEDICARE, SELFPAY | PROVIDERS: PCP Internal Medicine; Visit Provider Radiology Diagnostic Radiology | DX: R13.10 Dysphagia, unspecified (principal) | CPT/HCPCS: 74230 ==

== ENCOUNTER 2025-03-22 15:05 | Outpatient (REF) | payer MEDICARE, SELFPAY ==
--- OUTSIDE RECORDS SUMMARY | 2025-03-22 15:12 | XMS_ITS | Clinical Summary ---
Author Organization [facility] [address] [facility] l[address] Address [address] [place] [address] Phone Care Team Providers Care Asp Developer Name Role Phone Vonnie Cali DO Primary [...] 1 endometrial adenocarcinoma. Patient is referred to [facility] at [facility]. She underwent total hysterectomy on 05/09/[address] Mora at [facility]. Nodes were negative. She did not require RT or Chemotherapy. Surgical History Surgery Date Site/Laterality Comments TONSILLECTOMY ADENOIDECTOMY, BILATERAL MYRINGOTOMY AND TUBES age 8 PROCEDURE: DC TONSILLECTOMY & ADENOIDECTOMY <AGE 13 ROBOTIC ASSISTED HYSTERECTOMY 05/09/2017 PROCEDURE: HISTORICAL ROBOTIC HYSTERECTOMY WITH OR WITHOUT BSO Medical History Medical History Date Comments Celiac disease 2007 DX:Celiac diseas e Other and unspecified noninf ectious gastroenteritis and colitis(558.9) 2003 DX:Other and unspec ified noninfectious gastroenteritis and colitis(558.9); COMMENT: viral syndrome PTSD (post-traumatic stress disorder) DX:PTSD (post-traumatic stress disorder); COMMENT: Abusive Endometrial cancer ([facility]/HCC V24, [facility]/HCC V28) 04/29/2017 DX:Endometrial cancer (HCC); COMMENT: Endometrial biopsy performed on April 26, 2017 showed grade 1 endometrial adenocarcinoma. Patient is referred to [facility] oncology at [facility]. She underwent total hysterectomy on 05/09/[address] Mora at [facility]. Nodes were negative. She did not [...] 3487 g (123 oz) F Vag-S pont [facility] Last Filed Vital Signs Vital Sign Reading [...] age to complete this topic Insurance MEDICARE [facility] Care Teams Asp Developer Relationship Specialty Start Date End Date Vonnie Cali DO [address] [place] [address] PCP - General 04/29/17
--- OUTSIDE RECORDS SUMMARY | 2025-03-22 15:12 | XMS_ITS | Encounter Summary ---
Author Organization [facility] Address [address] [place] [address] [place] [phone] Phone Care Team Providers Care Research Assistant Name Role Phone Mikaela Dickens MEDICAL NURSE Primary Care Provider Griselda Ha NP Unavailable [phone] Celestina Zimmerman MD Primary Care Provider [phone] Reason for Referral * MRI/CAT Scan - Closed Specialty Diagnoses / Procedures Referred By Contac t Referred To Contact Procedures MRI Brain Outside (No Interpretation) System, Provider Not In, PhD [facility] [address] Referral ID Status Reason Start Date Expiration Date Visits Re quested Visits Authorized [id number] Closed 01/12/2019 01/12/2020 1 1 Encounter Details Date Type Department Care Team (Late st Contact Info) Description 01/12/2019 Ancillary Orders [facility],Outside Imaging [address] [place] [address] System, Provider Not In, PhD [facility] [employer] [address] [place] [address] Social History Tobacco Use Types Packs/Day Years [...] Care Team (Late st Contact Info) Description 05/17/2025 1:00 PM EDT Office Visit [facility] Neurology [address], [address]th [address], [address] [place] [address] Salvatore Crocker MD, PhD [address] [place] [address] [email or web address] documented as of this encounter Results * [...] documented as of this encounter Care Teams Research Assistant Relationship Specialty Start Date End Date Mikaela Dickens NP [address] [place] [address] [place] [address] [email or web address] PCP - General Family Medicine 10/31/18 Celestina Zimmerman MD [address] [place] [address] [place] [address] PCP - General Internal Medicine 04/20/21 Griselda Ha NP [address] [place] [address] Family Medicine 02/14/20 documented as of this encounter Additional Source Comments The information contained in this document represents components of the legal health record. It is not the complete legal health record.[facility]
--- OUTSIDE RECORDS SUMMARY | 2025-03-22 15:12 | XMS_ITS | Patient Health Record ---
[facility] [place] Address [address] [facility] [address] Care Team Providers Care Real Estate Leasing Agent Name Role Phone Celestina Zimmerman MD Primary Care Provider Alba Mir Unavailable [phone] Allergies Allergen (clinical drug ingredient) Drug/Non Drug [...] 40 MG Oral; Duration: 90 Active Nystatin 064832 UNIT/ML Mouth/Throat; Duration: 10 Not-Taking hydrALAZINE HCl [...] Risk Notes Problem Chronic ulcer of foot (337010386) Non-pressure chronic ulcer of other part of left foot with fat layer exposed (L97.522) Active confirmed Problem Non-pressure ulcer of left lower extremity, limited to breakdown of skin (L97.921) Active confirmed Problem Acquired hammer toe of left foot (4741453313011 103) Hammer toe of left foot (M20.42) Active confirmed Problem Ulcer of left lower leg (disorder) (8611211525265 9103) Non-pressure ulcer of left lower extremity with fat layer exposed (L97.922) Active confirmed Problem Non-pressure ulcer of right lower extremity with fat layer exposed (L97.912) Active confirmed Vital Signs Blood pressure diastolic 55 mm Hg 09/28/2024 Height 5ft5in in 09/28/2024 Blood pressure systolic 120 mm Hg 09/28/2024 Weight 185 lbs 09/28/2024 BMI 30.78 kg/m2 09/28/2024 Encounters Encounter Location Date Provider Diagnosis [facility] [address] [place] [address] 09/28/2024 Alba Caal Ingrown nail L60.0 Assessments Encounter Date Diagnosis (ICD Code) Assessment Notes Treatment Notes Treatment Clinical Notes Section Notes 09/28/2024 Ingrown nail (ICD-10 - L60.0) Plan Of Treatment Pending Test Test Name Order Date [id number] SKIN/TISSUE 01/06/2023 Insurance Providers Payer Name Payer Address Payer Phone Subscriber Number Group Number Insured Name Patient Relationship to Insured Coverage Start Date Coverage End Date Medicare National [employer] [address] [facility] [address] [id number] Sana Mireles Self - patient is the insured [employer] [address] [place] [address] [phone] [id number] Sana Mireles Self - patient is the insured Medical (General) History Medical History History ICD Code Anxiety Cancer Measles Mumps Chicken pox Headaches/Migraines High blood pressure Psychiatric disorder Celiac disease Surgical History Surgery Date(Month/Year) hysterectomy Hospitalization History Reason Date(Month/Year) C- CHF, respiratory issues 09/2022
--- OUTSIDE RECORDS SUMMARY | 2025-03-22 15:12 | XMS_ITS | Clinical Summary ---
Author Organization [facility] Address [address] [place] [address] Care Team Providers Care Reconciliation Analyst Name Role Phone Unavailable Primary Care Provider [...] Description 03/28/2025 3:00 PM EDT Clinical Support [facility] [address] [place] [address] Erich Mckeon MD [address] [place] [phone] Health Maintenance Due Date Last Done Comments [...] topic Insurance MEDICARE PART A & [place] [id number]
== END 2025-03-22 15:06 | disposition home or self-care (01) ==
LOC: HO.LAB 15:05
PROVIDERS: PCP Internal Medicine; Visit Provider Internal Medicine
DX: R53.1 Weakness (principal)
CPT/HCPCS: 36415; 82085

== ENCOUNTER 2025-04-05 14:15 | Outpatient (AMB) | payer MEDICARE, SELFPAY ==
--- OUTSIDE RECORDS SUMMARY | 2024-05-28 11:00 | XMS_ITS | Continuity of Care Document ---
Author Organization [facility] Address [address] [place] [address] Phone Care Team Providers Care Laborer Pipelines Name Role Phone Sesar QUINTERO, RVT, RPVI, Judson Marcano U navailable Allergies, Adverse Reactions, Alerts Substance Reaction Status Criticality Sulfa (Sulfonamide Antibiotics) Active No Information Procedures Procedure Date Office/Outpt E&M Established 15 Mins- CT & [place] Duplex Scan-extrem Veins; Uni/ CT & [place] O ct Duplex Scan-extrem Veins; Uni/ CT & [place] S Inj Scleros Solut; Mx Veins 1- CT & [place] S Ultrason Guidan Needle Bx-rad- CT & MA S Office/Outpt E&M Established 15 Mins- CT & [place] Duplex Scan-extrem Veins; Uni/ CT & MA S Duplex Scan-extrem Veins; Uni/ CT & [place] A Duplex Scan-extrem Veins; Uni/ CT & [place] J Ultrason Guidan Needle Bx-rad- CT & [place] J Inj Sclerosing Solution; Sngl- CT & [place] J Varithena, Single Truncal Vein - CT & MA Office/Outpt E&M Established 25 Mins- CT & [place] Duplex Scan-extrem Veins; Comp- CT & [place] No Charge For Services Office/Outpt E&M Established 15 Mins- CT & [place] Surgical Stockings Duomed Knee High -2 0 Office/Outpt E&M Established 15 Mins Aug Duplex Scan-extrem Veins; Comp Duplex Scan-extrem Veins; Uni/ Endovenous Laser, 1st Vein Endovenous laser vein addon Duplex Scan-extrem Veins; Uni/ Endovenous Laser, 1st Vein Endovenous laser vein addon Office/Outpt E&M Established 10 Mins - T elemedicine Duplex Scan-extrem Veins; Comp Office/Oupt E&M New Pt 45 Mins Advance Directives Directive Yes / No Effective Date File Name Other Directive No 05/28/2024 N/A WARNING:The information contained in this section is historical and is provided for information only and does not constitute a legal document or any assurance that the information is still accurate. Please verify the information with the harris of the legal document before using it for clinical purposes. Encounters Encounter Description Practice Location Reason(s) For Visit Diagnoses Date Provider Providers Copied on Encounter Office/Outpt E&M Established 15 Mins- [place] & [place] [facility], [address] [place] [address] Dr Mccollum [facility] [address], [id number], [place] tel:[phone] [facility] [place] Venous insufficiency (chronic) (peripheral)E ssential (primary) hypertension 4 Sesar QUINTERO, RVT, RPASH Roper. [address], [address], [place], [place], [id number], [place]. tel:[phone] Referring Provider: Celestina Zimmerman MD S, [address] [place] [address], [address]. tel:[phone] [facility], [address] [place] [address] Dr Mccollum [address], [place], [id number], [place] tel:[phone] CVR [facility] Chronic venous hypertension (idiopathic) with other complications of right lower extremity Oct-2 4 Sesar QUINTERO RVT, RPVI Robert. [address] [place] [address], Suite [facility], [place], [id number], [place]. tel:[phone] Referring Provider: Celestina Zimmerman MD S, [address] [place] [address], [place], [address]. tel:[phone] [facility], [address] [place] [address] Dr Mccollum [address]SuAnuj weathers [place], [id number], [place] tel:[phone] [facility] Encounter for follow-up examination after completed treatment for conditions other than malignant nePain in right leg Sep-2 4 Sesar QUINTERO RVT, RPVI Robert. [address] [place] [address], Suite [facility], [place], [id number], [place]. tel:[phone] Referring Provider: Celestina Zimmerman MD S, [address] [place] [address], [place], [address]. tel:[phone] [place] [facility], [address] [place] [address] Dr Mccollum 1000Suite Anuj Zaldivar [place], [id number], [place] tel:[phone] CVR - [facility] Varicose veins of right lower extremity with other complications Sep-2 4 Sesar QUINTERO RVT, RPVI Robert. [address] [place] [address], Suite [facility], [place], [id number], [place]. tel:[phone] Referring Provider: Celestina Zimmerman MD S, [address] [place] [address], [place], [address]. tel:[phone] Office/Outpt E&M Established 15 Mins- CT & [place] [facility], [address] [place] [address] Dr Mccollum [address]SuAnuj weathers [place], [id number], [place] tel:[phone] CVR - [facility] Chronic venous hypertension (idiopathic) without complications of bilateral lower extremity Sep-1 4 Sesar QUINTERO RVT, RPVI Robert. [address] [place] [address], [address], [place], [id number], [place]. tel:[phone] Referring Provider: Celestina Zimmerman MD S, [address] [place] [address], [place], [address]. tel:[phone] [facility], [address] [place] [address] Dr Mccollum 1000Suite 1000Anuj [place], [id number], [place] tel:[phone] [facility] [place] Encounter for follow-up examination after completed treatment for conditions other than malignant nePain in right leg 4 Sesar QUINTERO RVT, SUMEET Roper. [address] [place] [address], [place] [address], [facility] [place] [id number], [place]. tel:[phone] Referring Provider: Celestina Zimmerman MD S, [address] [place] [address], [address]. tel:[phone] [facility], [address] [place] [address] [facility] [place] [address], [id number], [place] tel:[phone] CVR - [place] [facility] Encounter for follow-up examination after completed treatment for conditions other than malignant nePain in right lower leg 4 Sesar QUINTERO RVT, SUMEET Roper. [address] [place] [address], [place] [address], [place], [id number], [place]. tel:[phone] Referring Provider: Celestina Zimmerman MD S, [address] [place] [address], [address]. tel:[phone] [facility], [address] [place] [address] Dr Mccollum 1000Suite 1000Anuj [place], [id number], [place] tel:[phone] CVR - [place] [facility] Encounter for follow-up examination after completed treatment for conditions other than malignant neChronic venous hypertension (idiopathic) with other complications of right lower extremity 4 Sesar QUINTERO RVT, SUMEET Roper. [address] [place] [address], Suite [facility], [place], [id number], [place]. tel:[phone] Referring Provider: Celestina Zimmerman MD S, [address] [place], [place] [address], [place], [address]. tel:[phone] [facility], [address] [place] [address] Dr Mccollum 1000SuAnuj weathers [place], [id number], [place] tel:[phone] [facility] Chronic venous hypertension (idiopathic) with inflammation of right lower extremity 0 4 Owen Cole. [address] [facility] [address], [address], [facility] [place], [id number], [place]. tel:[phone] Referring Provider: Celestina Zimmerman MD S, [address] [place] [address], [place], [address]. tel:[phone] [facility] MD [facility], [address] [place] [address] Dr Mccollum 1000SuAnuj weathers [place], [id number], [place] tel:[phone] [facility] [place] Varicose veins of right lower extremity with other complications 4 Sesar QUINTERO RVT, SUMEET Roper. [address] [facility], [place] [address], [facility] [place], [id number], [place]. tel:[phone] Referring Provider: Celestina Zimmerman MD S, [address] [place] [address], [place], [address]. tel:[phone] Office/Outpt E&M Established 25 Mins- CT & [place] [facility], [address] [place] [address] Dr Mccollum 1000SuAnuj weathers MD, [id number], [place] tel:[phone] [facility] [place] Chronic venous hypertension (idiopathic) with other complications of bilateral lower extremity 4 Sesar QUINTERO RVT, RPVI Robert. [address] [facility], [address], [facility] [place] [place], [id number], [place]. tel:[phone] Referring Provider: Celestina Zimmerman MD S, [address] [place] [address], [place], [address]. tel:[phone] [facility] MD [facility], [address] [place] [address] Dr Mccollum 1000SuAnuj weathers [place], [id number], [place] tel:[phone] CVR - [facility] Chronic venous hypertension (idiopathic) with other complications of bilateral lower extremity 4 Sesar QUINTERO RVT, RPVI Robert. [address] [place] [address], [place], [place], [id number], [place]. tel:[phone] Referring Provider: Celestina Zimmerman MD S, [address] [place] [address], [place], [address]. tel:[phone] [facility], [address] [place] [address] Dr Mccollum 1000Suite Anuj Zaldivar [place], [id number], [place] tel:[phone] CVR - [facility] Venous insufficiency (chronic) (peripheral)N evus, non-neoplasti c 4 Owen Cole. [address] [place] [address], [place], [place], [id number], [place]. tel:[phone] Referring Provider: Celestina Zimmerman MD S, [address] [place] [address], [place], [address]. tel:[phone] Office/Outpt E&M Established 15 Mins- CT & [place] [facility], [address] [place] [address] Dr Mccollum 1000Suite 1000Anuj [place], [id number], [place] tel:[phone] CVR - [facility] Essential (primary) hypertensionV enous insufficiency (chronic) (peripheral)P ain in right lower legChronic venous hypertension (idiopathic) without complications of bilateral lower extremity 4 Sesar QUINTERO, SURESH, SUMEET Roper. [facility] [place] [address], [place], [place], [id number], [place]. tel:[phone] Referring Provider: Celestina Zimmerman MD S, [address] [place] [address], [place], [address]. tel:[phone] Office/Outpt E&M Established 15 Mins [facility], [address] [place] [address] Dr Mccollum 1000Suite 1000Anuj [place], [id number], [place] tel:[phone] [facility] [place] Localized edemaVenous insufficiency (chronic) (peripheral)E ssential (primary) hypertension 4 Darrell Henao. [address] [facility] [address], [facility] [place], [id number], [place]. tel:[phone] Referring Provider: Celestina Zimmerman MD S, [address] [place] [address], [place], [address]. tel:[phone] [facility], [address] [place] [address] [facility] 1000Suite 1000Anuj [place], [id number], [place] tel:[phone] [facility] - [facility] Chronic venous hypertension (idiopathic) with other complications of bilateral lower extremity 4 Sesar QUINTERO, JUVENTINOT, VI Judson. [address] [place] [address], [facility] [place], [id number], [place]. tel:[phone] Referring Provider: Celestina Zimmerman MD S, [address] [place] [address], [place], [address]. tel:[phone] [facility], [address] [place] [address] [facility] 1000Suite 1000Anuj [place], [id number], [place] tel:[phone] CVR - [facility] Encounter for follow-up examination after completed treatment for conditions other than malignant nePain in left leg May- 3 Liam QUINTERO FACS RVT ASH Cha. [facility] [place] [address], [place], [address], [place]. tel:[phone] Referring Provider: Shad Wheeler MD FACS RVT RP, [address] [place] [address], [place], [address]. tel:[phone] [place] [facility], [address] [place] [address] [address] 1000Anuj [place], [id number], [place] tel:[phone] CVR - [facility] Chronic venous hypertension (idiopathic) with inflammation of left lower extremity May- 3 Sesar QUINTERO RVT, RPVI Judson. [address] [place] [address], Suite [facility], [facility] [place] [place], [id number], [place]. tel:[phone] Referring Provider: Shad Wheeler MD FACS RVT RP, [facility] [facility] [address], [facility] [place], [address]. tel:[phone] [place] [facility], [address] [place] [address] Dr [address], [place], [id number], [place] tel:[phone] [facility] - [place] Encounter for follow-up examination after completed treatment for conditions other than malignant nePain in right leg Sep-2 3 Liam QUINTERO FACS RVT [facility] Shad Cha. [facility] [facility], [address], [place], [address], [place]. tel:[phone] Referring Provider: Shad Wheeler MD FACS RVT [facility], [address] [place] [address] Suite [facility], [facility] [place], [address]. tel:[phone] [place] [facility], [address] [place] [address] [address], [place], [id number], [place] tel:[phone] [facility] Chronic venous hypertension w inflammation of r low extrem Sep-2 3 Sesar QUINTERO, RVT, [facility] Judson. [address] [place] [address], Suite [facility], [place], [id number], [place]. tel:[phone] Referring Provider: Shad Wheeler MD FACS T [facility], [address] [place] [address] [address], [place], [address]. tel:[phone] Office/Outpt E&M Established 10 Mins - Telemedicine [facility], [address] [place] [address] [address], [place], [id number], [place] tel:[phone] [facility] Chronic venous htn w oth comp of bilateral low extrm Sep-1 3 Liam QUINTERO FACS RVT ASH Cha. [address] [place] [address], [address], [place], [address], [place]. tel:[phone] Referring Provider: Shad Wheeler MD FACS RVT [facility], [address] [place] [address] [address], [place], [address]. tel:[phone] [place] [facility], [address] [place] [address] [address], [place], [id number], [place] tel:[phone] [facility] Pain in right legPain in left leg 3 Liam QUINTERO [facility] Shad Cha. [address] [facility], [address], [facility], [address], [place]. tel:[phone] Referring Provider: Shad Wheeler MD [facility], [address] [place] [address] [address], [facility], [address]. tel:[phone] Office/Oupt E&M New Pt 45 Mins [facility], [address] [place] [address] [address], [place], [id number], [place] tel:[phone] [facility] Chronic venous htn w oth comp of bilateral low extrmPain in right lower legPain in left lower legPain in right legRestless legs syndromeEssen tial (primary) hypertensionP ain in left legCramp and spasmLocalize d edema 3 Liam QUINTERO [facility] Shad Semaj. [address] [place] [address], Suite [facility], [facility], [address], [place]. tel:[phone] Referring Provider: Shad Wheeler MD [facility], [address] [place] [address], [facility], [address]. tel:[phone] Family History Family Member Type Diagnosis Age At Onset No Information Payers Payer name Insurance type Covered libertarian ID Authorsaraha tirosa(s) Medicare DANYELL VALADEZ [id number] [facility] DANYELL [id number] Social History Type Description Quantity Date Captured Comments Alcohol Use Details Unknown Caffeine Use Details Unknown Tobacco Use Status Current non-smoker Smoking Status Never Smoker Non-Smoking Tobacco Use Details : No Details Available : No Details Available Sex Female Vital Signs Date / Time: Height Weight BMI Pulse Rate Blood Pressure Temperature Respiratory Rate Body Surface Area Head Circumference Head Circ. Percentile Wt./Darren. Percentile BMI percentile Pulse Ox Inhaled Ox 78.020 kg (172.00 lbs) 28.6 9 kg/m eter (2) 130/70 mm[Hg] Chief Complaint And Reason For Visit No Information Reason For Referral Reason For Referral No Information Plan Of Treatment Date Type Action Status Goal Diet education completed Goal Diet education completed Goal Diet education completed Goal Diet education completed Goal Diet education completed Goal Tobacco cessation counseling completed Goal Diet education completed Referral Ordered: Weight management: Referral to physician timeframe: 3 Months (related to Body mass index (BMI) 28.0-28.9, adult) ordered Referral Ordered: Weight management: Referral to physician timeframe: 3 Months (related to Body mass index (BMI) 28.0-28.9, adult) ordered Referral Ordered: Weight management: Referral to physician timeframe: 3 Months (related to Body mass index (BMI) 28.0-28.9, adult) ordered Referral Ordered: Weight management: Referral to physician timeframe: 3 Months (related to Body mass index (BMI) 30.0-30.9, adult) ordered Referral Ordered: Weight management: Referral to physician timeframe: 3 Months (related to Body mass index (BMI) 30.0-30.9, adult) ordered Referral Ordered: Weight management: Referral to physician timeframe: 3 Months (related to Body mass index (BMI) 30.0-30.9, adult) ordered History Of Present Illness Encounter Date Complaint History Of Prese nt Illness No Information Functional Status Date Functional Assessmen t No Information Instructions Date Instruction Additional Infor mation Lifestyle education Related to B kandi mass index (BMI) 28.0-28.9, adult Giving Encouragement to exercise Related to Body mass index (BMI) 28.0-28.9, adult Diet education Related to Body mass index (BMI) 28.0-28.9, adult Pre and post instruc tions reviewed and provided Related to Venous insufficiency (chronic) (peripheral) Patient education booklet given Related to Venous insufficiency (chronic) (peripheral) Giving Encouragement to exercise Related to Body mass index (BMI) 28.0-28.9, adult Diet education Related to Body mass index (BMI) 28.0-28.9, adult Pre and post instruc tions reviewed and provided Related to Chronic venous hypertension (idiopathic) without complications of bilateral lower extremity Patient education booklet given Related to Chronic venous hypertension (idiopathic) without complications of bilateral lower extremity Lifestyle education Related to B kandi mass index (BMI) 28.0-28.9, adult Lifestyle education Related to B kandi mass index (BMI) 28.0-28.9, adult Pre and post instruc tions reviewed and provided Related to Chronic venous hypertension (idiopathic) with other complications of bilateral lower extremity Giving Encouragement to exercise Related to Body mass index (BMI) 28.0-28.9, adult Diet education Related to Body mass index (BMI) 28.0-28.9, adult Patient education booklet given Related to Chronic venous hypertension (idiopathic) with other complications of bilateral lower extremity Patient education booklet given Related to Pain in right lower leg Diet education Related to Body mass index (BMI) 30.0-30.9, adult Giving Encouragement to exercise Related to Body mass index (BMI) 30.0-30.9, adult Lifestyle education Related to B kandi mass index (BMI) 30.0-30.9, adult Compression stocking usage as conservative measure Related to Pain in right lower leg Patient education booklet given Related to Localized edema Lifestyle education Related to B kandi mass index (BMI) 30.0-30.9, adult Giving Encouragement to exercise Related to Body mass index (BMI) 30.0-30.9, adult Diet education Related to Body mass index (BMI) 30.0-30.9, adult Pre and post instruc tions reviewed and provided Related to Chronic venous htn w oth comp of bilateral low extrm Patient education booklet given Related to Chronic venous htn w oth comp of bilateral low extrm Lifestyle education Related to B kandi mass index (BMI) 30.0-30.9, adult Giving Encouragement to exercise Related to Body mass index (BMI) 30.0-30.9, adult Diet education Related to Body mass index (BMI) 30.0-30.9, adult Assessments Type Assessment Date No Information Patient Care Teams Name Effective Dates (start - stop) Status Members No Information
[2025-04-05 14:33] VITALS: BP 122/58; PULSE 56; O2SAT 95; BMI 31.4
--- NOTE | 2025-04-05 14:33 | A.OFFVIS_ITS ---
Vital Signs 04/05/25 14:33 Height 5 ft 4 in Weight 183 lb BMI 31.4 BP 122/58 L Blood Pressure Location Rt brachial Position Sitting Pulse 56 Pulse Source Pulse Oximeter Pulse Oximetry (%) 95 Oxygen Delivery Method Room Air Intake Visit Reasons: 3m follow up Intake Note: Patient presents follow up Gait/Sleep. Compliance in chart(88/90days, >=4hrs- 93%, Average Usage-[id number], Med Pressure-8.4, Med Leaks-3.2, AHI-2.8). Allergies gluten (GLUTEN) Allergy (Severe, Verified 04/05/25 14:39) ABD PAIN Sulfa (Sulfonamide Antibiotics) (SULFA(SULFONAMIDE ANTIBIOTICS)) Allergy (Severe, Verified 04/05/25 14:39) Rash mirtazapine Adverse Reaction (Severe, Verified 04/05/25 14:39) peripheral edema HPI Comments Details: 74y/o r. handed female comes for evaluation of postural instability. 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 Denies any change of history and or recent falls. DANIS with CPAP use, however compliance is not available today. Denies any change of history and or recent falls. She is sleeping better now. She started having balance and gait instability 2-3 years ago, her first fall was 10 years ago, she passed out because of dizziness. Her gait has progressively worsened, she has seen PT for vertigo which helps with her gait. She has headaches and can last all day, 3-4 times a week, and mostly on the l. temporal side, with photophobia, phonophobia, denies n/v. She denies blurry, double vision, and spinning sensation of the room. She has chronic back pain and neck pain. She also reports progressive cognitive issues, her short term memory is poor with difficulty in recall, mainly word finding. Her mood is stable. She has a therapist whom she sees regularly due to issues with family. She uses tylenol otc and heating pads as needed declined medications today. She used to have hypertensive, now she thinks she is hypotensive. She has a h/o r. heart failure and fluid overload, we discussed wearing compression stockings daily for 2 hours and elevating her feet daily. She has dysphagia, to solids and liquids will f/u with her pcp. We discussed weight loss and walking as tolerable. Reviewed labs with patient today. Reviewed compliance from Aug 2024, will request new compliance data. [facility] Medical History Spondylosis, cervical Headache Cervicalgia Chronic rhinitis Pulmonary nodule Pulmonary nodule Hearing loss Annual physical exam Dysphagia Vocal cord dysfunction Weight gain Edema Urinary incontinence Asthma History of concussion Shortness of breath Lower extremity edema Dyspnea Hypoxemia requiring supplemental oxygen Nonspecific interstitial pneumonitis Peripheral neuropathy Psychiatric disorder Mammogram normal Hyperlipemia Pulmonary hypertension DANIS on CPAP Pneumonitis Orthostatic hypotension dysautonomic syndrome Hypothyroid HTN (hypertension) Celiac disease Diastolic CHF Surgical History Hx of esophagogastroduodenoscopy History of total abdominal hysterectomy and bilateral salpingo-oophorectomy Endometrial adenocarcinoma History of colonoscopy Family History Father Savita cell cancer HTN (hypertension) CVD (cardiovascular disease) Mother Crohn disease Cancer Maternal Grandfather No problems noted. Maternal Grandmother No problems noted. Paternal Grandfather CVD (cardiovascular disease) Paternal Grandmother COPD (chronic obstructive pulmonary disease) Brother No problems noted. Sister No problems noted. Daughter No problems noted. Social History Household Members: Spouse Housing: House Are you a primary health careers instructor to a significant other at home: No Do you presently have visiting nurse or other home services: No Alcohol intake: current Alcohol intake frequency: holidays/special occasions only Comment: pt resting Patient Tobacco Use Status: Former Tobacco user Tobacco use type: Cigarette Years Smoked: 2 e-Cigarette/Vaping Use: Never Used Second Hand Smoke Exposure: No Advance Directives Date on File: 01/26/21 service: No Current occupational status: retired Cognitive needs: No Hearing needs: Yes Vision needs: Yes Physical Exam Vital Signs: Last Vital Signs Pulse 56 04/05/25 14:33 BP 122/58 L 04/05/25 14:33 Pulse Ox 95 04/05/25 14:33 Oxygen Delivery Method Room Air 04/05/25 14:33 BMI result Body Mass Index 31.4 Const General: cooperative and comfortable Nutritional Appearance: overweight Orientation/consciousness: patient oriented x3 Neck Neck: Yes no meningeal signs Neuro Other: Gait- antalgic slow, normal base and stride Neck - tightness General: patient oriented x3, tone normal, moves all extremities, no meningeal signs and no focal motor deficits Gait exam (Neuro): Antalgic gait present Motor exam (neuro): 5/5 motor strength present throughout and Normal motor muscle tone present throughout Psych Appearance: grossly normal Thought process: Normal thought process present Thought content: Normal thought content present Assessment & Plan Assessment & Plan (1) Gait instability: Comment: bp? Hypotensive? Menierres- dietary restrictions reviewed with pt. today. Code(s): R26.81 - Unsteadiness on feet Category: Medical (2) Anxiety and depression: Comment: F/U WITH PSYCHIATRY/ therapist bi-weekly Code(s): F41.9 - Anxiety disorder, unspecified; F32.A - Depression, unspecified Category: Medical (3) Excessive daytime sleepiness: Comment: continue the use of cpap daily Code(s): G47.19 - Other hypersomnia Category: Medical (4) Mood complaints in sleep disorder: Code(s): G47.9 - Sleep disorder, unspecified Category: Medical Plan DANIS Compliance is emphasized as patient has r. heart failure, dizziness and history of falls, with bilateral edema. Gait / Postural instability/ declines PT today. Labs reviwed with pt. AST/ALT elevated / Cholesterol elevated/ CK elevated. Mood is anxious f/u with therapist and psychiatry for medication adjustments as needed, practice good self care and sleep hygiene. Patient Instructions: Sleep Hygiene provided: set a scheduled bedtime and wake time to help regulate the circadian rhythm and balance the release of pituitary hormones. Sleep in a dark room, temperatures below 68 degrees, and no devices n bed. Limit caffeinated products 6 hours prior to bed, and limit fluids 2-4 hours prior to bed. Gentle night yoga, diffusing essential oils, and playing soft music can be relaxing. Coding Level of Care Code Est Pt Level 4 (55118) Diagnoses Gait instability R26.81 Anxiety and depression F41.9; F32.A Excessive daytime sleepiness G47.19 Mood complaints in sleep disorder G47.9
--- OUTSIDE RECORDS SUMMARY | 2025-04-05 14:44 | XMS_ITS | Patient Health Record ---
[facility] [place] Address [address] [facility] [place] [address] Care Team Providers Care Bristle Machine Operator Name Role Phone Celestina Zimmerman MD Primary Care Provider Alba Mir Unavailable [phone] Allergies Allergen (clinical drug ingredient) Drug/Non Drug [...] 40 MG Oral; Duration: 90 Active Nystatin 473898 UNIT/ML Mouth/Throat; Duration: 10 Not-Taking hydrALAZINE HCl [...] Risk Notes Problem Chronic ulcer of foot (811725314) Non-pressure chronic ulcer of other part of left foot with fat layer exposed (L97.522) Active confirmed Problem Non-pressure ulcer of left lower extremity, limited to breakdown of skin (L97.921) Active confirmed Problem Acquired hammer toe of left foot (2479444522447 103) Hammer toe of left foot (M20.42) Active confirmed Problem Ulcer of left lower leg (disorder) (3743388087312 9103) Non-pressure ulcer of left lower extremity with fat layer exposed (L97.922) Active confirmed Problem Non-pressure ulcer of right lower extremity with fat layer exposed (L97.912) Active confirmed Vital Signs Blood pressure diastolic 55 mm Hg 09/28/2024 Height 5ft5in in 09/28/2024 Blood pressure systolic 120 mm Hg 09/28/2024 Weight 185 lbs 09/28/2024 BMI 30.78 kg/m2 09/28/2024 Encounters Encounter Location Date Provider Diagnosis [facility] [address] [place] [address] 09/28/2024 Alba Caal Ingrown nail L60.0 Assessments Encounter Date Diagnosis (ICD Code) Assessment Notes Treatment Notes Treatment Clinical Notes Section Notes 09/28/2024 Ingrown nail (ICD-10 - L60.0) Plan Of Treatment Pending Test Test Name Order Date [id number] SKIN/TISSUE 01/06/2023 Insurance Providers Payer Name Payer Address Payer Phone Subscriber Number Group Number Insured Name Patient Relationship to Insured Coverage Start Date Coverage End Date Medicare National [employer] [address] [place] [place] [address] [id number] Sana Mireles Self - patient is the insured [employer] [address] [place] [address] [id number] Sana Mireles Self - patient is the insured Medical (General) History Medical History History ICD Code Anxiety Cancer Measles Mumps Chicken pox Headaches/Migraines High blood pressure Psychiatric disorder Celiac disease Surgical History Surgery Date(Month/Year) hysterectomy Hospitalization History Reason Date(Month/Year) C- CHF, respiratory issues 09/2022
--- OUTSIDE RECORDS SUMMARY | 2025-04-05 14:45 | XMS_ITS | Clinical Summary ---
Author Organization [facility] [address] [facility] l[address] Address [address] [place] [address] Phone Care Team Providers Care Station Master Name Role Phone Vonnie Cali DO Primary [...] 1 endometrial adenocarcinoma. Patient is referred to [facility] MANAGER oncology at [facility]. She underwent total hysterectomy on 05/09/[address] Mora at [facility]. Nodes were negative. She did not require RT or Chemotherapy. Surgical History Surgery Date Site/Laterality Comments TONSILLECTOMY ADENOIDECTOMY, BILATERAL MYRINGOTOMY AND TUBES age 8 PROCEDURE: ID TONSILLECTOMY & ADENOIDECTOMY <AGE 13 ROBOTIC ASSISTED HYSTERECTOMY 05/09/2017 PROCEDURE: HISTORICAL ROBOTIC HYSTERECTOMY WITH OR WITHOUT BSO Medical History Medical History Date Comments Celiac disease 2007 DX:Celiac diseas e Other and unspecified noninf ectious gastroenteritis and colitis(558.9) 2003 DX:Other and unspec ified noninfectious gastroenteritis and colitis(558.9); COMMENT: viral syndrome PTSD (post-traumatic stress disorder) DX:PTSD (post-traumatic stress disorder); COMMENT: Abusive Endometrial cancer ([facility]/HCC V24, [facility]/HCC V28) 04/29/2017 DX:Endometrial cancer (HCC); COMMENT: Endometrial biopsy performed on April 26, 2017 showed grade 1 endometrial adenocarcinoma. Patient is referred to MONITORING MANAGER oncology at [facility]. She underwent total hysterectomy on 05/09/[address] Mora at [facility]. Nodes were negative. She did not [...] 3487 g (123 oz) F Vag-S pont [facility] Last Filed Vital Signs Vital Sign Reading [...] 07/04/2022 Social Influencers of Health Screening 07/04/2022 Depression Screening 08/01/2024 COVID-19 Vaccine ( season) 2025 07/09/2023, 05/17/2022, 11/27/2021, Additional history exists Influenza Vaccine (#1) 2025 , 09/11/2023, 05/19/2022, [...] age to complete this topic Insurance MEDICARE [facility] Care Teams Station Master Relationship Specialty Start Date End Date Vonnie Cali DO [address] [place] [address] PCP - General 04/29/17
--- OUTSIDE RECORDS SUMMARY | 2025-04-05 14:45 | XMS_ITS ---
Author Organization [facility] on Care Team Providers Care Six Pack Loader Operator Name Role Phone Aggie Lloyd Unavailable Amelia Hager Unavailable Allergies and adverse reactions Code CodeSystem Substance Reaction Severity StartDate Concern Status 076659108 SNOMED CT Sulfa Antibiotics Moderate 2 active Gluten Unknown 02/14/2022 active Care Team Name Role Address Phone Organization Dates Aggie Lloyd PCP [address] [place] [address], [address], [facility] (Office): : [facility] 02/14/2022 - 03/09/2022 Amelia Hager [address] [place] [address], [address], [place] (Office): : [facility] 02/14/2022 - 03/09/2022 Immunizations Immunization Status Vaccine [...] URINARY TRACT INFECTION, SITE NOT SPECIFIED 03/07/[address] active 2 ANXIETY DISORDER, UNSPECIFIED 02/15/[address] active 3 ATHEROSCLEROTIC HEART DISEASE OF [place] CORONARY ARTERY WITHOUT ANGINA PECTORIS 02/15/[address] active 4 CHRONIC OBSTRUCTIVE PULMONARY DISEASE, UNSPECIFIED 02/15/[address] active 5 ESSENTIAL (PRIMARY) HYPERTENSION 02/15/[address] active 6 HYPOTHYROIDISM, UNSPECIFIED 02/15/[address] active 7 IRRITABLE BOWEL SYNDROME, UNSPECIFIED 02/15/[address] active 8 POST-TRAUMATIC STRESS DISORDER, UNSPECIFIED 02/15/[address] active 9 RETENTION OF URINE, UNSPECIFIED 02/15/[address] active 10 UNSPECIFIED FRACTURE OF RIGHT PUBIS, SUBSEQUENT ENCOUNTER FOR FRACTURE WITH ROUTINE HEALING 02/15/[address] active 11 UNSPECIFIED FRACTURE OF SACRUM, SUBSEQUENT ENCOUNTER FOR FRACTURE WITH ROUTINE HEALING 02/15/[address] active Reason for Referral No Reasons for Referral Entered Social History Social History Observation Description Start Date End Date Code Code System Current Smoking Status Tobacco smoking consumption unknown 002039481 SNOMED CT Sex Assigned At Female 1950 26814-1 [facility] Gender Identity Vital Signs Code Code System Vitals Name Values and Units Timing Information 18792-6 [facility] Pain Level Value=0.0 03/09/2022 9279-1 [facility] Respiratory Rate Value=18.0 Units=/m in 03/07/2022 8462-4 [facility] Blood Pressure-Diastolic Value=63 Un its=mmHg 03/07/2022 8480-6 [facility] Blood Pressure-Systolic Lysvq=500 Un its=mmHg 03/07/2022 8310-5 [facility] Body Temperature Value=97.3 Units= F 03/07/2022 8867-4 [facility] Heart rate Value=71.0 Units=/min 01/2022 66515-5 [facility] O2 % BldC Oximetry Value=96.0 Units= % 03/07/2022 10736-6 [facility] Weight Ycqfu=874.2 Units=Lbs 8302-2 [facility] Height Value=64.0 Units=Inches 02/14/2022
--- OUTSIDE RECORDS SUMMARY | 2025-04-05 14:45 | XMS_ITS | Encounter Summary ---
Author Organization [facility] Address [address] [place] [address] Drive [address] [place] [address] Phone Care Team Providers Care Barber Shop Manager Name Role Phone Dilcia Griselda Frost LEAD DENTAL ASSISTANT Unavailable [phone] Celestina Zimmerman MD Primary Care Provider [phone] Encounter Details Date Type Department Care Team (Late st Contact Info) Description 10/04/2023 Procedure Pass [facility] Endoscopy Admitting Dept Virtual Department [address] [place] [address] [id number] Social History Tobacco Use Types Packs/Day Years Used Date Smoking Tobacco: Former Smokeless Tobacco: Never Education Answer Date Recorded Are you interested in more education? Not on brianna e 11/26/2022 Are you concerned about learning? Not on file 11/26/2022 No 11/26/2022 No 11/26/2022 Digital Access Answer Date Recorded No 12/23/2022 No 12/23/2022 Reliable internet access at home? Not on file 12/23/2022 Device with a working camera? Not on file Intimate Partner Violence Answer Date R ecorded Are you denied basic needs s uch as food, clothing, or medical care? No 09/28/2023 In the past 12 months have y ou been in a relationship with a person who hurts, threatens, or tries to control you? No 09/28/2023 Are you denied basic needs s uch as food, clothing, or medical care? No 09/28/2023 In the past 12 months have y ou been in a relationship with a person who hurts, threatens, or tries to control you? No 09/28/2023 Comments Unknown Sex and Gender Information Value [...] Description 05/17/2025 1:00 PM EDT Office Visit [facility] Neurology [address] [place] [address], [address] Floor, [address] [place] [address] Salvatore Crocker MD, PhD [address] [place] [address] [email or web address] documented as of this encounter Visit Diagnoses Not on filedocumented in this encounter Additional Health Concerns Infection Onset Date Last Indicated Resolved Time CoV-Risk 09/28/2023 09/28/2023 2023 1:22 AM EST Assessment Noted Time PHQ-2 Depression Total Score: 0 03/06/20 20 12:56 PM EDT documented as of this encounter Care Teams Barber Shop Manager Relationship Specialty Start Date End Date Celestina Zimmerman MD [facility] [place] [address] PCP - General Internal Medicine 04/20/21 Griselda Ha NP [address] [place] [address] Family Medicine 02/14/20 documented as of this encounter Additional Source Comments The information contained in this document represents components of the legal health record. It is not the complete legal health record.[facility]
--- OUTSIDE RECORDS SUMMARY | 2025-04-05 14:45 | XMS_ITS | Encounter Summary ---
Author Organization [facility] Address [address] [place] [address] [place] [address] Phone Care Team Providers Care Nutrition Therapist Name Role Phone Mikaela Dickens GAS LEAK TESTER Primary Care Provider Griselda Ha NP Unavailable [phone] Celestina Zimmerman MD Primary Care Provider [phone] Reason for Referral * MRI/CAT Scan - Closed Specialty Diagnoses / Procedures Referred By Contac t Referred To Contact Procedures MRI Brain Outside (No Interpretation) System, Provider Not In, PhD [facility] [employer] [address] Referral ID Status Reason Start Date Expiration Date Visits Re quested Visits Authorized [id number] Closed 01/12/2019 01/12/2020 1 1 Encounter Details Date Type Department Care Team (Late st Contact Info) Description 01/12/2019 Ancillary Orders [facility],Outside Imaging [address] [place] [address] System, Provider Not In, PhD [facility] [employer] [address] [place] [address] Social History Tobacco Use Types Packs/Day Years [...] Description 05/17/2025 1:00 PM EDT Office Visit [facility] Neurology [address] [facility], 7th Floor, [address] [place] [address] Salvatore Crocker MD, PhD [address] [place] [address] [email or web address] documented as of this encounter Results [...] documented as of this encounter Care Teams Nutrition Therapist Relationship Specialty Start Date End Date Mikaela Dickens NP [address] [place] [address] [place] [address] [email or web address] PCP - General Family Medicine 10/31/18 Celestina Zimmerman MD [address] [place] [address] [place] [address] PCP - General Internal Medicine 04/20/21 Griselda Ha NP [address] [place] [address] Family Medicine 02/14/20 documented as of this encounter Additional Source Comments The information contained in this document represents components of the legal health record. It is not the complete legal health record.[facility]
--- OUTSIDE RECORDS SUMMARY | 2025-04-05 14:45 | XMS_ITS | Encounter Summary ---
Author Organization [facility] Address [address] [place] [address] [place] [address] Phone Care Team Providers Care Water Hydrant Installer Name Role Phone Mikaela Dickens LAB SUPPORT SERVICE TECH Primary Care Provider Griselda Ha NP Unavailable [phone] Celestina Zimmerman MD Primary Care Provider [phone] Reason for Referral * MRI/CAT Scan - Closed Specialty Diagnoses / Procedures Referred By Contac t Referred To Contact Procedures MRI Brain Outside (No Interpretation) System, Provider Not In, PhD [facility] [employer] [address] Referral ID Status Reason Start Date Expiration Date Visits Re quested Visits Authorized [id number] Closed 02/21/2019 02/21/2020 1 1 Encounter Details Date Type Department Care Team (Late st Contact Info) Description 02/21/2019 Ancillary Orders [facility],Outside Imaging [address] [place] [address] System, Provider Not In, PhD [facility] [employer] [address] [place] [address] Social History Tobacco Use Types Packs/Day Years [...] Description 05/17/2025 1:00 PM EDT Office [place] [facility] [place] [address] [facility], 7th Floor, [address] [place] [address] Salvatore Crocker MD, PhD [address] [place] [address] [email or web address] documented as of this encounter Results * MRI Brain Outside (No Interpretation) (01/29/2019 12:00 AM EDT) Narrative SYSTEMGENERATED, DOCUMENTATION - 02/21/2019 3:05 PM EDT This study is for PACS [...] documented as of this encounter Care Teams Water Hydrant Installer Relationship Specialty Start Date End Date Mikaela Dickens NP [address] [place] [address] [place] [address] [email or web address] PCP - General Family Medicine 10/31/18 Celestina Zimmerman MD [address] [place] [address] [place] [address] PCP - General Internal Medicine 04/20/21 Griselda Ha NP [address] [place] [address] Family Medicine 02/14/20 documented as of this encounter Additional Source Comments The information contained in this document represents components of the legal health record. It is not the complete legal health record.[facility]
--- OUTSIDE RECORDS SUMMARY | 2025-04-05 14:45 | XMS_ITS | Clinical Summary ---
Author Organization [facility] Address [address] [place] [address] Care Team Providers Care Customer Marketing Intern Name Role Phone Celestina Zimmerman MD Primary Care Provider [phone] Allergies Active Allergy Reactions Criticality Noted Date Comments Gluten Unknown/Patient and Family Unable to Define Medium 11/30/2021 Sulfa Antibiotics Unknown/Patient and Family Unable to Define Medium 02/14/2022 Medications amLODIPine (NORVASC) 10 MG tablet Take 10 mg by mouth. Active esomeprazole (NexIUM) 20 MG packet Take 20 mg by mouth. Active gabapentin (NEURONTIN) 100 MG capsule Take 100 mg by mouth 3 (three) times a day. Active furosemide (LASIX) 40 MG tablet Take 40 mg by mouth. Active hydrALAZINE (APRESOLINE) 25 MG tablet TAKE 1 TABLET BY MOUTH IN THE MORNING AND 3 AT 5PM DAILY DIRECTED Active labetalol (NORMODYNE) 100 MG tablet Take 100 mg by mouth 2 times a day. Active levothyroxine (SYNTHROID, LEVOTHROID) 100 MCG tablet Take 100 mcg by mouth. 03/06/2025 Active Active Problems Problem Noted Date Diagnosed Date Lateral epicondylitis 03/27/2025 Malignant neoplasm 03/27/2025 Status post colonoscopy 03/27/2025 Overview (03/27/2025): 2016; repeat 2025 ([facility]) colo 2005, repeat 2014 Chronic foot ulcer 03/15/2025 Hammer toe of left foot 03/15/2025 DANIS (obstructive sleep apnea) 03/15/2025 Ulcer of lower extremity 03/15/2025 Celiac disease 05/21/2024 Dysphagia 05/21/2024 Gastroesophageal reflux disease 05/21/2024 Urinary tract infectious disease 03/07/2022 Atherosclerosis of coronary artery without angin a pectoris 02/14/2022 Chronic obstructive pulmonary disease 02/14/2022 Fracture of pubis 02/14/2022 Retention of urine 02/14/2022 Anxiety 11/30/2021 Internal hemorrhoids 11/30/2021 Overview (03/27/2025): colo 2016 Irritable bowel syndrome 11/30/2021 Malignant neoplasm 11/30/2021 Osteopenia 11/30/2021 Overview (03/27/2025): Osteopenia 2016bone density 06/2012 nl Posttraumatic stress disorder 11/30/2021 Urticaria 11/30/2021 Hypertension 05/04/2019 History of endometrial cancer 04/29/2017 Overview (03/27/2025): Endometrial biopsy performed on April 26, 2017 showed grade 1 endometrial adenocarcinoma. Patient is referred to [facility] oncology at [facility]. She underwent total hysterectomy on 05/09/[address] Mora at [facility]. Nodes were negative. She did not require RT or Chemotherapy. Hypothyroidism 05/29/2009 Encounters Date Type Department Care Team Description 03/27/2025 11:30 AM EDT Clinical Support [facility] [address] [phone] Erich Mckeon MD Otalgia of both ears (Primary Dx); Sensorineural hearing loss, bilateral from Last 3 Months Immunizations Immunization Administration Dates Next Due Covid-19 mRNA Primary Series Vaccine - Moderna 0.5 mL Full Dose 11/27/2021,05/22/2021,11/04/2020,10/16 H1N1 All Forms 04/16/2011,05/29/2009 Influenza (AFLURIA/FLUZONE) Inactivated/Split Quadrivalent with Preservative IM 05/14/2016 Influenza High-Dose Trivalen t,(FLUZONE HIGH-DOSE), Perservative Free IM 0.5 mL 65 years and older 05/22/2019,05/01/2019,06/06/2018,03/22 Influenza Virus Trivalent Sp lit Vaccine (MDV) IM 05/26/2016,05/08/2015,05/14/2013,05/01 Influenza Whole 06/01/2014, 2,05/22/2010,05/01 Influenza, Quadrivalent (FLU AD) Adjuvanted Preservative Free IM 65 years and older 05/29/2020 Pneumococcal Conjugate 13-Valent 03/22/2017 Pneumococcal Polysaccharide 23-Valent 03/27/2018 ,05/09/2015 Td, Unspecified 08/01/2003 Tdap 08/16/2016,09/29/2012 Zoster Vaccine Live/Attenuat ed (Zostavax) 08/08/2015,03/05/2014 Social History Tobacco Use Types Packs/Day Years Used Date Smoking Tobacco: Never Passive Smoke Exposure: Past Smokeless Tobacco: Never Tobacco Cessation:Counseling Given: Not Answered Comments Unknown Sex and Gender Information Value Date Recorded Sex Assigned at Not on file Legal Sex Female 2:45 PM EDT Gender Identity Not on file Sexual Orientation Not on file Last Filed Vital Signs Vital Sign Reading Time Taken Comments Blood Pressure - - Pulse - - Temperature - - Respiratory Rate - - Oxygen Saturation - - Inhaled Oxygen Concentration - - Weight 77.1 kg (170 lb) 03/27/2025 11:19 AM EDT Height 162.6 cm (5' 4 ) 03/27/2025 11:19 AM EDT Body Mass Index 29.18 03/27/2025 11:19 AM EDT Plan of Treatment Health Maintenance Due Date Last Done Comments Advance Care Planning 1950 Hepatitis C Virus Screening 1950 Mammogram 1991 Colonoscopy 10/08/1996 RSV Vaccine 60 years and older and Patients (1 - Risk 60-74 years 1-dose series) 2011 Zoster (Shingles) Vaccine (1 of 2) 10/03/2015 08/08/2015, 03/05/2014 DXA Bone Density (Females,Ages 65 and older) 10/08/2016 COVID-19 Vaccine ( season) 2024 11/27/2021, 05/22/2021, 11/04/2020, Additional history exists Influenza Vaccine 03/01/2025 05/29/2020, , 05/22/2019, Additional history exists DTaP/Tdap/Td Vaccines (3 - Td or Tdap) 08/16/2026 08/16/2016, 09/29/2012, 08/01/2003 Pneumococcal Vaccines 50+ Completed 2017, 03/22/2017, 05/09/2015 Hepatitis B Vaccines Aged Out No long er eligible based on patient's age to complete this topic Insurance MEDICARE PART A & B [place] [id number] Care Teams Customer Marketing Intern Relationship Specialty Start Date End Date Celestina Zimmerman MD [address] [place] [address] PCP - General 03/27/25
--- OUTSIDE RECORDS SUMMARY | 2025-04-05 14:45 | XMS_ITS | Encounter Summary ---
Author Organization [facility] Address [address] [place] [address] Drive [address] [place] [address] Phone Care Team Providers Care Strip Machine Tender Name Role Phone Mikaela Dickens SAS DEVELOPER Primary Care Provider Griselda Ha SAS DEVELOPER Unavailable [phone] Celestina Zimmerman MD Primary Care Provider [phone] Encounter Details Date Type Department Care Team (Late st Contact Info) Description 02/21/2019 Procedure Pass [facility],Outside Imaging [address] [place], [place] [id number] Social History Tobacco Use Types Packs/Day Years [...] Description 05/17/2025 1:00 PM EDT Office Visit [facility] Neurology [address] [facility], 7th Floor, [address] [place] [address] Salvatore Crocker MD, PhD [address] [place] [address] [email or web address] documented as of this encounter Visit Diagnoses [...] documented as of this encounter Care Teams Strip Machine Tender Relationship Specialty Start Date End Date Mikaela Dickens NP [address] [place] [address] [place] [address] [place] [id number] [email or web address] PCP - General Family Medicine 10/31/18 Celestina Zimmerman MD [facility] [place] [id number] PCP - General Internal Medicine 04/20/21 Griselda Ha NP [address] [place] [address] Family Medicine 02/14/20 documented as of this encounter Additional Source Comments The information contained in this document represents components of the legal health record. It is not the complete legal health record.[facility]
--- OUTSIDE RECORDS SUMMARY | 2025-04-05 14:45 | XMS_ITS | Encounter Summary ---
Author Organization [facility] Address Formerly [facility] [email or web address] [place] [address] Phone Care Team Providers Care Optimization Specialist Name Role Phone Dilcia Griselda Frost VALVE LAPPER Unavailable [phone] Celestina Zimmerman MD Primary Care Provider [phone] Encounter Details Date Type Department Care Team (Late st Contact Info) Description 02/13/2022 Procedure Pass [facility], Ct Scan - [address] [address] Social History Tobacco Use Types Packs/Day Years Used Date Smoking Tobacco: Former Smokeless Tobacco: Never Comments Unknown Sex and Gender Information Value Date Recorded Sex Assigned at Female 11/28/2024 4:13 PM EDT Legal Sex Female 10:00 PM EDT Gender Identity Female 11/28/2024 4:13 PM EDT Sexual Orientation Straight 11/28/2024 4: 13 PM EDT documented as of this encounter Functional Status * Calculated C-SSRS Risk Score (Lifetime/Recent) Answer Date of Assessment Author No Risk Indicated 02/13/2022 7:00 PM EDT Loraine Hernandez RN * [place] Suicide Severity Rating Scale (Screener/Recent Self-Report) Question Answer Date of Assessment Author 1. Wish to be (Past 1 Month) No 022 7:00 PM EDT Loraine Ross, RN 2. Non-Specific Active Suici nestor Thoughts (Past 1 Month) No 02/13/2022 7:00 PM EDT Herbie Ross, RN 6. Suicidal Behavior (Lifetime) No 7:00 PM EDT Loraine Ross, RN documented as of this encounter Plan of Treatment Upcoming Encounters Date Type Department Care Team (Late st Contact Info) Description 05/17/2025 1:00 PM EDT Office Visit [facility] Neurology [address] [place] [address], 7th Floor, [address] [place] [address] Salvatore Crocker MD, PhD [address] [place] [phone] [email or web address] documented as of this encounter Visit Diagnoses Not on filedocumented in this encounter Additional Health Concerns Infection Onset Date Last Indicated Resolved Time CoV-Risk 05/14/2023 05/14/2023 05/25/2023 1:22 AM EDT CoV-Risk 08/05/2023 08/05/2023 08/05/2023 8:55 PM EST COVID-19 08/05/2023 08/05/2023 08/26/2023 1:23 AM EST CoV-Risk 09/28/2023 09/28/2023 2023 1:22 AM EST Assessment Noted Time PHQ-2 Depression Total Score: 0 03/06/20 20 12:56 PM EDT documented as of this encounter Care Teams Optimization Specialist Relationship Specialty Start Date End Date Celestina Zimmerman MD [address] [facility] [place] [address] PCP - General Internal Medicine 04/20/21 Griselda Ha NP [address] [place] [address] Family Medicine 02/14/20 documented as of this encounter Additional Source Comments The information contained in this document represents components of the legal health record. It is not the complete legal health record.[facility]
--- OUTSIDE RECORDS SUMMARY | 2025-04-05 14:45 | XMS_ITS | Encounter Summary ---
Author Organization [facility] Address [address] [place] [address] Drive [address] [place] [address] Phone Care Team Providers Care Tax Services Professional Name Role Phone Dilcia Griselda Frost FREIGHT SERVICE INSPECTOR Unavailable [phone] Celestina Zimmerman MD Primary Care Provider [phone] Encounter Details Date Type Department Care Team (Late st Contact Info) Description 09/28/2023 Procedure Pass [facility], Ct Scan - [address] [address] Social History Tobacco Use Types Packs/Day Years [...] Date of Assessment Author No Risk Indicated 09/28/2023 3:13 PM Dipak Larsen RN * [place] Suicide Severity Rating Scale (Screener/Recent Self-Report) Question Answer Date of Assessment Author 1. Wish to be (Past 1 Month) No 024 3:13 PM Dipak Larsen RN 2. Non-Specific Active Suici nestor Thoughts (Past 1 Month) No 09/28/2023 3:13 PM Dipak Larsen RN documented as of this encounter Plan of Treatment Upcoming Encounters Date Type Department Care Team (Late st Contact Info) Description 05/17/2025 1:00 PM EDT Office Visit [facility] [place] [address] [place] [address], 7th Floor, [address] [place] [address] Salvatore Crocker MD, PhD [address] [place] [address] [email or web address] documented as of this encounter Visit Diagnoses Not on filedocumented in this encounter Additional Health Concerns Infection Onset Date Last Indicated Resolved Time CoV-Risk 09/28/2023 09/28/2023 2023 1:22 AM EST Assessment Noted Time PHQ-2 Depression Total Score: 0 03/06/20 20 12:56 PM EDT documented as of this encounter Care Teams Tax Services Professional Relationship Specialty Start Date End Date Celestina Zimmerman MD [facility] [place] [address] PCP - General Internal Medicine 04/20/21 Griselda Ha NP [address] [place] [address] Family Medicine 02/14/20 documented as of this encounter Additional Source Comments The information contained in this document represents components of the legal health record. It is not the complete legal health record.[facility]
--- OUTSIDE RECORDS SUMMARY | 2025-04-05 14:45 | XMS_ITS | Encounter Summary ---
Author Organization [facility] Address [address] [place] [address] Drive [address] [place] [address] Phone Care Team Providers Care Leather Softener Name Role Phone Ez Hahalima Frost COIL PLACER Unavailable [phone] Celestina Zimmerman MD Primary Care Provider [phone] Encounter Details Date Type Department Care Team (Late st Contact Info) Description 02/14/2022 Procedure Pass [facility], Ct Scan - [address] [address] Social History Tobacco Use Types Packs/Day Years [...] Description 05/17/2025 1:00 PM EDT Office Visit [facility] [place] [address] [facility], 7th Floor, [address] [place], [place] [id number] Salvatore Crocker MD, PhD [address] [place] [phone] [email or web address] documented as of this encounter Visit Diagnoses Not on filedocumented in this encounter Additional Health Concerns Infection Onset Date Last Indicated Resolved Time CoV-Risk 05/14/2023 05/14/2023 05/25/2023 1:22 AM EDT CoV-Risk 08/05/2023 08/05/2023 08/05/2023 8:55 PM EST COVID-19 08/05/2023 08/05/2023 08/26/2023 1:23 AM EST CoV-Risk 09/28/2023 09/28/2023 2023 1:22 AM EST Assessment Noted Time PHQ-2 Depression Total Score: 0 03/06/20 12:56 PM EDT documented as of this encounter Care Teams Leather Softener Relationship Specialty Start Date End Date Celestina Zimmerman MD [facility] [place] [address] PCP - General Internal Medicine 04/20/21 Griselda Ha NP [address] [place] [address] Family Medicine 02/14/20 documented as of this encounter Additional Source Comments The information contained in this document represents components of the legal health record. It is not the complete legal health record.[facility]
--- OUTSIDE RECORDS SUMMARY | 2025-04-05 14:45 | XMS_ITS | Encounter Summary ---
Author Organization [facility] Address [address] [place] [address] Drive [address] [place] [address] Phone Care Team Providers Care Peer Specialist Name Role Phone Mikaela Dickens CNC MANAGER Primary Care Provider Griselda Ha CNC MANAGER Unavailable [phone] Celestina Zimmerman MD Primary Care Provider [phone] Encounter Details Date Type Department Care Team (Late st Contact Info) Description 01/12/2019 Procedure Pass [facility],Outside Imaging [address] [place], [place] [id number] Social History Tobacco Use Types Packs/Day Years [...] Description 05/17/2025 1:00 PM EDT Office Visit [facility] Neurology [address] [facility], 7th Floor, [address] [place] [address] Salvatore Crocker MD, PhD [address] [place] [phone] [email or web address] documented as of this encounter Visit [...] documented as of this encounter Care Teams Peer Specialist Relationship Specialty Start Date End Date Mikaela Dickens NP [address] [place] [address] [place] [address] [place] [address] [email or web address] PCP - General Family Medicine 10/31/18 Celestina Zimmerman MD [facility] [place] [address] PCP - General Internal Medicine 04/20/21 Griselda Ha NP [address] [place] [address] Family Medicine 02/14/20 documented as of this encounter Additional Source Comments The information contained in this document represents components of the legal health record. It is not the complete legal health record.[facility]
--- OUTSIDE RECORDS SUMMARY | 2025-04-05 14:45 | XMS_ITS | Clinical Summary ---
Author Organization [facility] Address [address] [place] [address] [place] [id number] Phone Care Team Providers Care Tack Maker Name Role Phone Griselda Haowen ANTHONY Unavailable [phone] Celestina Zimmerman MD Primary Care Provider [phone] Allergies Active Allergy Reactions Criticality Noted Date Comments Gluten 11/30/2021 Sulfa (Sulfonamide Antibiotics) 12/31 Medications labetalol (TRANDATE) 100 MG tablet Take 100 mg by mouth 2 (two) times a day. Active amLODIPine (NORVASC) 10 MG tablet Take 10 mg by mouth daily. Active LORazepam (ATIVAN) 1 MG tablet Take 1 mg by mouth every 8 (eight) hours as needed for anxiety. 2 Active furosemide (LASIX) 40 MG tablet Take 40 mg by mouth daily. Active hydrALAZINE (APRESOLINE) 25 MG tablet Take 25 mg by mouth 2 (two) times a day. 25mg in AM, 75mg in PM 2 Active oxybutynin (DITROPAN) 5 MG tablet Take 5 mg by mouth nightly at bedtime. 2 Active traZODone (DESYREL) 50 MG tablet Take 50 mg by mouth nightly at bedtime. at bedtime. 2 Active busPIRone (BUSPAR) 15 MG tablet Take 15 mg by mouth 2 (two) times a day. 2 Active montelukast (SINGULAIR) 10 mg tablet Take 10 mg by mouth daily as needed. 2 Active albuterol 90 mcg/actuation inhaler Inhale 2 puffs into the lungs every 6 (six) hours as needed for wheezing. Active albuterol 2.5 mg/0.5 mL nebulizer solution Take 2.5 mg by nebulization as needed for wheezing. Active sertraline (ZOLOFT) 100 MG tablet Take 100 mg by mouth daily. 2 Active levothyroxine (SYNTHROID, LEVOTHROID) 75 MCG tablet 3 Active omeprazole (PRILOSEC) 40 MG capsule Take 40 mg by mouth 2 (two) times a day. 3 Active rOPINIRole (REQUIP) 0.5 MG tablet 3 Active spironolactone (ALDACTONE) 25 MG tablet Take 25 mg by mouth daily. Active gabapentin (NEURONTIN) 300 MG capsule Take 1-2 capsules by mouth nightly at bedtime. 4 Active gabapentin (NEURONTIN) 100 MG capsuleIndicat ions:Tremor take 3 capsules by mouth once daily 90 capsule 6 4 Active hydroCHLOROthi azide (HYDRODIURIL) 25 MG tablet Take 25 mg by mouth daily. 25mg AM 75 MG PM 022 Discontin ued(No longer taking) mirtazapine (REMERON) 30 MG tablet Take 30 mg by mouth nightly at bedtime. 022 Discontin ued(No longer taking) Active Problems Problem Noted Date Diagnosed Date Anxiety 11/30/2021 Diverticular disease 11/30/2021 Overview (11/30/2021): colo 2016 Internal hemorrhoids 11/30/2021 Overview (11/30/2021): colo 2016 Irritable bowel syndrome 11/30/2021 Malignant neoplasm 11/30/2021 Osteopenia 11/30/2021 Overview (11/30/2021): Osteopenia 2016bone density 06/2012 nl Posttraumatic stress disorder 11/30/2021 Urticaria 11/30/2021 Hypertension 05/04/2019 Hypothyroidism 05/29/2009 Encounters Date Type Department Care Team Description 03/14/2025 Orders Only [facility] Rheumatology at [address] [address] Noelle Wooten MD Weakness (Primary Dx) 02/28/2025 3:30 PM EDT - 02/28/2025 11:59 PM EDT Hospital Encounter [facility] Pathology Outpatient Lab [address] [place] [address] Noelle Wooten MD Discharge Disposition: Home or Self Care 02/28/2025 2:40 PM EDT Office Visit [facility] Rheumatology at [address] [address] Noelle Wooten MD Weakness (Primary Dx) from Last 3 Months Immunizations Immunization Administration Dates Next Due [id number] FORMULATION 04/16/2011,05/02 INFLUENZA, SPLIT VIRUS, TRIV ALENT W/ PRESERVATIVE IM 05/26/2016,05/08/2015,05/14/2013,05/01 Influenza High-Dose Trivalen t Preservative Free IM 05/22/2019,05/01/2019,06/06/2018,03/22 Influenza Quadrivalent Adjuv anted Preservative Free IM 05/29/2020 Influenza Quadrivalent w/ Pr eservative IM 05/14/2016 Influenza, whole 06/01/2014, 2,05/22/2010,05/01 Pneumococcal conjugate PCV13 03/22/2017 Pneumococcal polysaccharide PPSV23 03/27/2018, Td, unspecified formulation 08/01/2003 Tdap 08/16/2016,09/29/2012 Zoster live 08/08/2015,03/05/2014 Social History Tobacco Use Types Packs/Day Years Used Date Smoking Tobacco: Former Smokeless Tobacco: Never Tobacco Cessation:Counseling Given: Not Answered Education Answer Date Recorded Are you interested [...] Orientation Straight 11/28/2024 4: 13 PM EDT Last Filed Vital Signs Vital Sign Reading Time Taken Comments Blood Pressure 132/60 02/28/2025 2:50 PM EDT Pulse 68 02/28/2025 2:50 PM EDT Temperature 36.4 C (97.6 F) 02/28/2025 2:46 PM EDT Respiratory Rate 20 09/28/2023 5:07 PM EST Oxygen Saturation 91% 02/28/2025 2:46 PM EDT Inhaled Oxygen Concentration - - Weight 77.1 kg (170 lb) 02/28/2025 2:46 PM EDT Height 162.6 cm (5' 4 ) 02/28/2025 2:46 PM EDT Body Mass Index 29.18 02/28/2025 2:46 PM EDT Plan of Treatment Upcoming Encounters Date Type Department Care Team (Late st Contact Info) Description 05/17/2025 1:00 PM EDT Office Visit [facility] Neurology [address], [address], [address] [place] [address] Salvatore Crocker MD, PhD [address] [place] [id number] [email or web address] Maintenance Due Date Last Done Comments LIPID PANEL 1950 SMOKING Hx and SMOKELESS TOBACCO SCREENING 10/08/1964 HEPATITIS C SCREENING 10/08/1969 MAMMOGRAM 1991 COLOGUARD 10/08/1996 COLONOSCOPY 10/08/1996 COLORECTAL CANCER SCREENING 10/08/1996 FIT TEST 10/08/1996 FOBT 10/08/1996 SIGMOIDOSCOPY 10/08/1996 VIRTUAL COLONOSCOPY 10/08/1996 OSTEOPOROSIS SCREENING INITIAL (ONE-TIME) 10/08/2016 DEPRESSION SCREENING 03/06/2021 03/06/2020 POTASSIUM LEVEL 09/28/2024 09/28/2023, 0803/2022, 03/01/2022, Additional history exists INFLUENZA VACCINE (#1) 2025 , 09/11/2023, 05/19/2022, Additional history exists COVID-19 VACCINE ( season) 2025 07/09/2023, 05/17/2022, 11/27/2021, Additional history exists TSH LEVEL 05/21/2025 05/21/2024, 09/28/2023 BLOOD PRESSURE 08/31/2025 02/28/2025 Adult Td,Tdap Booster 08/16/2026 08/16/2016 , 09/29/2012, 08/01/2003 PNEUMOCOCCAL VACCINES (50+ years) Completed 05/19/2022, 03/27/2018, 03/22/2017, Additional history exists ZOSTER VACCINES Completed 11/18/2022, 08/02, 08/08/2015, Additional history exists RSV VACCINE Completed 07/26/2023 HEPATITIS A VACCINES Aged Out No long er eligible based on patient's age to complete this topic HIB VACCINES Aged Out No longer eligi ble based on patient's age to complete this topic MENINGOCOCCAL VACCINES (ACWY) Aged Out No longer eligible based on patient's age to complete this topic MENINGOCOCCAL VACCINES (B) Aged Out N o longer eligible based on patient's age to complete this topic Medical Devices Not on file Procedures Procedure Name Priority Date/Time Associated Diagnosis Comments OUTSIDE LAB 03/28/2025 SEDIMENTATION RATE (ESR) Routine 02/28/2025 3:30 PM EDT Weakness C-REACTIVE PROTEIN, HIGH SENSITIVITY Routine 02/28/2025 3:30 PM EDT Weakness ALDOLASE Routine 02/28/2025 3:30 PM EDT Weakness CPK (CREATINE KINASE) Routine 02/28/2025 3:30 PM EDT Weakness TSH WITH REFLEX STAT 09/28/2023 7:22 PM EST BASIC METABOLIC PANEL STAT 09/28/2023 7:22 PM EST from Last 3 Months or Most Recently Relevant to Health Maintenance Results * Outside Lab (03/28/2025) us Scanning Interface Provider LAB BLOOD ORDERABLES Final Result * (ABNORMAL) C-reactive protein, high sensitivity (02/28/2025 3:30 PM EDT) CRP, HIGH SENSITIVITY 3.1(H) 0.0 - 3.0 mg/L [facility] Comment: For cardiac risk assessment, reference range is <3.0mg/L. For inflammation assessment, reference range is <10.0mg/L. 02/28/2025 3:30 PM EDT 02/28/2025 7:22 PM EDT us Noelle Wooten MD LAB BLOOD ORDERABLES Final Resu lt [facility] [address] [place] [address] * (ABNORMAL) Aldolase (02/28/2025 3:30 PM EDT) ALDOLASE 8.2(H) <7.7 U/L [facility] DPT OF LAB MED AND PAT+ Comment: (NOTE) ADDITIONAL INFORMATION This test has been modified from the animal daycare provider's instructions. Its performance characteristics were determined by [facility] in a manner consistent with CLIA requirements. This test has not been cleared or approved by the U.S. Food and Drug Administration. 02/28/2025 3:30 PM EDT 02/28/2025 7:21 PM EDT us Noelle Wooten MD LAB BLOOD ORDERABLES Final Resu lt Performing Organization Address [facility] [place]/ZIP Co de Phone Number [facility] DPT OF LAB MED AND PAT+ [address] [place] [address] * Sedimentation rate (ESR) (02/28/2025 3:30 PM EDT) Pathologist [facility] ESR 15 0 - 20 mm/h [facility] 02/28/2025 3:30 PM EDT 02/28/2025 7:22 PM EDT us Noelle Wooten MD LAB BLOOD ORDERABLES Final Resu lt Performing Organization Address [facility] [place] Co de Phone Number [address] [address] * CPK (creatine kinase) (02/28/2025 3:30 PM EDT) Pathologist [facility] CREATINE KINASE 171 50 - 185 U/L [facility] 02/28/2025 3:30 PM EDT 02/28/2025 7:22 PM EDT us Noelle Wooten MD LAB BLOOD ORDERABLES Final Resu lt Performing Organization Address [facility] [place] Co de Phone Number [address] [address] * TSH with reflex (09/28/2023 7:22 PM EST) TSH 3.18 0.27 - 4.20 uIU/mL [facility] Blood 09/28/2023 7:22 PM EST 09/28/2023 7:24 PM EST Eduardo Persaud PA-C LAB BLOOD ORDERABLES Final Re sult [address] [address] * (ABNORMAL) Basic metabolic panel (09/28/2023 7:22 PM EST) SODIUM 140 133 - 146 mmol/L [facility] CHLORIDE 101 96 - 108 mmol/L [facility] POTASSIUM 3.6 3.3 - 5.1 mmol/L [facility] CO2 27 21 - 35 mmol/L [facility] BUN 18 6 - 19 mg/dL [facility] CREATININE 1.10 0.5 - 1.5 mg/dL [facility] GLUCOSE 99 70 - 99 mg/dL [facility] CALCIUM 9.2 8.4 - 10.3 mg/dL [facility] EGFR 54(L) >59 mL/min/1.7 3m2 [facility] Comment:Estimated glomerular filtration rate calculated using the CKD-EPI refit equation. ANION GAP 16 10 - 20 mmol/L [facility] Blood 09/28/2023 7:22 PM EST 09/28/2023 7:24 PM EST Eduardo Persaud PA-C LAB BLOOD ORDERABLES Final Re sult [address] [address] from Last 3 Months or Most Recently Relevant to Health Maintenance Insurance MEDICARE PART A & B Cover [employer] MEDEX SUPPLEMENT MEDICARE PART A & B Cover [employer] MEDEX SUPPLEMENT MEDICARE PART A & B Cover [employer] MEDEX SUPPLEMENT MEDICARE PART A & B Cover [employer] MEDEX SUPPLEMENT MEDICARE PART A & B Cover [employer] MEDEX SUPPLEMENT MEDICARE PART A & B Cover [employer] MEDEX SUPPLEMENT MEDICARE PART A & B [employer] CROSS MEDEX SUPPLEMENT MEDICARE PART A & B [employer] CROSS MEDEX SUPPLEMENT MEDICARE PART A & B Cover [employer] MEDEX SUPPLEMENT Advance Directives For more information, please contact: [phone] (9AM - 5PM [facility], Tuesday-Tuesday) Documents on File Type Date Recorded Patient Telemetry Tech Expl anation Healthcare Proxy 02/14/2022 signed Healthcare Agents on File Name Relationship Healthcare Agent Relationship Communication Niels De Jesus Spouse .Primary Health Care Agent (Proxy form on file) Alba Martinez Daughter Alternate Health care Agent (Proxy form on file) Care Teams Tack Maker Relationship Specialty Start Date End Date Celestina Zimmerman MD [address] [place] [address] PCP - General Internal Medicine 04/20/21 Griselda Ha NP [address] [place] [address] Family Medicine 02/14/20 Additional Source Comments The information contained in this document represents components of the legal health record. It is not the complete legal health record.[facility]
== END 2025-04-05 15:33 | disposition home or self-care (01) ==
LOC: HO.HSMS 14:16
PROVIDERS: PCP Internal Medicine; Visit Provider Physician Assistant Medical
DX: R26.81 Unsteadiness on feet (principal); F41.9 Anxiety disorder, unspecified; F32.A Depression, unspecified; G47.19 Other hypersomnia; G47.9 Sleep disorder, unspecified
CPT/HCPCS: 99214

== ENCOUNTER → 2025-04-05 14:15 | Outpatient (BNVA) | payer MEDICARE, SELFPAY | PROVIDERS: PCP Internal Medicine; Visit Provider Physician Assistant Medical | DX: R26.81 Unsteadiness on feet (principal); F41.9 Anxiety disorder, unspecified; F32.A Depression, unspecified; G47.19 Other hypersomnia; G47.9 Sleep disorder, unspecified; G47.33 Obstructive sleep apnea (adult) (pediatric); Z99.89 Dependence on other enabling machines and devices; Z87.891 Personal history of nicotine dependence | CPT/HCPCS: 99212 ==

== ENCOUNTER → 2025-04-22 14:31 | Outpatient (REF) | payer MEDICARE, SELFPAY ==
--- NOTE | 2025-04-22 14:33 | CA_ITS ---
Transthoracic Echocardiogram Patient (Last, First, Middle): Sana De Jesus A Gender: F Date of : 1950 Age: 74 Procedure Date: 04/22/2025 Procedure Type: Transthoracic Echocardiogram Location: OP Height: 162.56 cm Weight: 83.01 kg BSA: 1.88 m2 Heart Rate: bpm BP: 122 / 58 mmHg Turbine Engine Assembler: ZULMA Referring MD: Anish Vargas MD Symptoms: I50.33 - Acute on chronic diastolic (congestive) heart failure Study Quality: Fair ECG Rhythm: Sinus Conclusions: - The left ventricular systolic function is normal. The calculated ejection fraction is 70% by biplane method. - No obvious valvular pathology seen on this study. Findings Left Ventricle Normal left ventricular cavity size. There is normal left ventricular wall thickness. The left ventricular systolic function is normal. The calculated ejection fraction is 70% by biplane method. There is no evidence of regional wall motion abnormalities. Evidence suggests grade I (mild) diastolic dysfunction. Right Ventricle Normal right ventricular cavity size and systolic function. Atria Both atria are normal in size. Aortic Valve There is a normal trileaflet aortic valve. There is mild calcification of the aortic valve. There is no aortic valve stenosis. There is no aortic valve regurgitation. Mitral Valve The mitral valve appears normal. There is no mitral valve regurgitation. There is no mitral valve stenosis. Pulmonic Valve The pulmonic valve is likely normal. Tricuspid Valve There is trace tricuspid valve regurgitation. There is no evidence of pulmonary hypertension. Great Vessels The asc aorta and aortic arch are normal in size. Venous The inferior vena cava is normal in size and collapses greater than 50% with inspiration. Pericardium/Pleural There is no evidence of pericardial effusion. Prior Study Comparison No significant change compared to prior study dated: 11/18/2022. Recommendations, Care & Conclusions No obvious valvular pathology seen on this study. Measurements 2D Linear Measurements IVSd: 1.00 0.6-0.9/0.6-1.0 cm LVIDd: 4.31 3.9-5.3/4.2-5.9 cm LVIDd Index: 2.29 2.4-3.2/2.2-3.1 cm/m2 LVIDs: 2.62 2.0-3.6 cm LVPWd: 0.83 0.7-1.1 cm LA Diam: 3.80 2.7-3.8/3.0-4.0 cm LAIDs Index: 2.02 1.5-2.3 cm/m2 LV Mass: 157.82 67-162/88-224 g LV Mass Index: 83.95 43-95/49-115 g/m2 LVOT Diam: 1.80 3.0+(-)1.3 cm 2D Systolic Function EF 4C: 67.40 >55% EF 2C: 70.30 >55% EF BiP: 69.50 >55% Mitral Valve MV Pk E: 1.17 MV PK A: 1.11 MV Decel Time: 264.00 E/A: 1.10 E'Lateral: 8.38 E'Medial: 5.11 E/E' Med: 22.90 E/E' Lat: 14.00 PHT: 77.00 MVA PHT: 2.86 Decel [place]: 4.41 Aortic Valve AoV Pk Armando: 1.81 AoV Mn Armando: 1.25 AoV VTI: 0.45 AoV Pk Grad: 13.00 Aov Mn Grad: 7.00 NICOLE Cont.VTI: 1.66 LVOT LVOT Pk Armando: 1.09 LVOT Mn Armando: 0.73 LVOT VTI: 0.29 LVOT Pk Grad: 5.00 LVOT Mn Grad: 2.00 LVOT Diam: 1.80 LVOT Area: 2.54 Diastolic Function MV Pk E: 1.17 MV Pk A: 1.11 E/A: 1.10 E'Medial: 5.11 E/E' Med: 22.90 E' Laterial: 8.38 E/E' Lat: 14.00 Right Ventricle TAPSE (mm): 26.50 TVS' Armando: 12.30 Tricuspid Valve TR Pk Armando: 2.54 TR Pk Grad: 26.00 RA Press: 3.00 RVSP: 29.00 Great Vessels Aorta Sinus of Valsalva: 2.68 2.0-3.[address] Ridge: 2.18 1.7-3.4 cm Ao Asc: 3.10 2.1-3.4 cm Ao Arch: 2.50 Pulmonary Veins Pulm Vein S/D 1.30 Updated in Other Vendor System with Status of Final Killian Pimentel MD electronically signed on 04/23/2025 1:17:59 PM with status of Final
--- OUTSIDE RECORDS SUMMARY | 2025-04-22 17:02 | XMS_ITS | Encounter Summary ---
Demographics Address [facility] [address] [place] [address] Mobile Phone Home Phone Email Address Preferred Language Indonesian Marital Status /Civil Union Congregation Affiliation Unknown
== END ==
LOC: HO.CARD 14:31
PROVIDERS: PCP Internal Medicine; Visit Provider Internal Medicine Cardiovascular Disease
DX: I50.33 Acute on chronic diastolic (congestive) heart failure (principal)
CPT/HCPCS: 93306

== ENCOUNTER → 2025-04-22 14:33 | Outpatient (BNV) | payer MEDICARE, SELFPAY | PROVIDERS: PCP Internal Medicine; Visit Provider Internal Medicine | DX: I50.33 Acute on chronic diastolic (congestive) heart failure (principal); I35.8 Other nonrheumatic aortic valve disorders | CPT/HCPCS: 93306 ==

== ENCOUNTER 2025-04-30 12:56 | Outpatient (AMB) | payer MEDICARE, SELFPAY ==
--- NOTE | 2025-04-30 13:01 | MHC.OFFVIS ---
Vital Signs 04/30/25 13:02 Height 5 ft 4 in Weight 182 lb 8.684 oz BMI 31.3 BP 124/62 Blood Pressure Location Lt brachial Position Sitting Pulse 62 Pulse Source Monitor Intake Visit Reasons: 1 yr f./up echo dr lopez pt Alley Worker Required: No Allergies gluten (GLUTEN) Allergy (Severe, Verified 04/30/25 13:03) ABD PAIN Sulfa (Sulfonamide Antibiotics) (SULFA(SULFONAMIDE ANTIBIOTICS)) Allergy (Severe, Verified 04/30/25 13:03) Rash mirtazapine Adverse Reaction (Severe, Verified 04/30/25 13:03) peripheral edema Medication List - Last Reconciled 04/30/25 by Griselda Ha, GABRIELLE-C amlodipine 10 mg PO QAM 90 days [Cane As directed] compress.stocking,knee,reg,med apply in the am and remove in the pm esomeprazole magnesium 40 mg PO DAILY furosemide 40 mg PO DAILY gabapentin 300 mg PO DAILY gabapentin 100 mg PO TID hydralazine 25 mg PO .q am hydralazine 75 mg PO .4 pm labetalol 100 mg PO BID levothyroxine 100 mcg PO DAILY lorazepam 0.5 mg PO BID nebulizers As directed oxybutynin chloride ER mg PO DAILY sertraline 100 mg PO DAILY sodium fluoride-pot nitrate 1.1-5 % PO BEDTIME spironolactone 50 mg (2 x 25 mg) PO DAILY trazodone 100 mg PO BEDTIME PRN HPI HPI 1 yr f./up echo dr lopez pt: Details: Sana is a 74-year-old female past medical history of hypertension, hyperlipidemia, sleep apnea with CPAP use, orthostatic hypotension, diastolic heart failure who presents for follow-up. Today she reports she has been doing well since her last visit 04/30/2024. She has mild shortness of breath at times with exertion which is not new. She follows with pulmonology. No recent issues with leg edema. No chest discomfort at rest with activity. No heart palpitations, presyncope, syncope, falls, PND or orthopnea. Compliant with CPAP. Taking all meds as directed. [facility] Medical History Spondylosis, cervical Headache Cervicalgia Chronic rhinitis Pulmonary nodule Pulmonary nodule Hearing loss Annual physical exam Dysphagia Vocal cord dysfunction Weight gain Edema Urinary incontinence Asthma History of concussion Shortness of breath Lower extremity edema Dyspnea Hypoxemia requiring supplemental oxygen Nonspecific interstitial pneumonitis Peripheral neuropathy Psychiatric disorder Mammogram normal Hyperlipemia Pulmonary hypertension DANIS on CPAP Pneumonitis Orthostatic hypotension dysautonomic syndrome Hypothyroid HTN (hypertension) Celiac disease Diastolic CHF Surgical History Hx of esophagogastroduodenoscopy History of total abdominal hysterectomy and bilateral salpingo-oophorectomy Endometrial adenocarcinoma History of colonoscopy Family History Father Wilmont cell cancer HTN (hypertension) CVD (cardiovascular disease) Mother Crohn disease Cancer Maternal Grandfather No problems noted. Maternal Grandmother No problems noted. Paternal Grandfather CVD (cardiovascular disease) Paternal Grandmother COPD (chronic obstructive pulmonary disease) Brother No problems noted. Sister No problems noted. Daughter No problems noted. Social History Household Members: Spouse Housing: House Are you a primary youth care professional to a significant other at home: No Do you presently have visiting nurse or other home services: No Alcohol intake: current Alcohol intake frequency: holidays/special occasions only Comment: pt resting Patient Tobacco Use Status: Former Tobacco user Tobacco use type: Cigarette Years Smoked: 2 e-Cigarette/Vaping Use: Never Used Second Hand Smoke Exposure: No Advance Directives Date on File: 01/26/21 service: No Current occupational status: retired Cognitive needs: No Hearing needs: Yes Vision needs: Yes Review of Systems Const All systems reviewed & are unremarkable except as noted in HPI and below ENT Denies dizziness Card Denies chest pain, Denies chest pain at rest, Denies chest pain with activity, Denies rapid heart rate, Denies pedal edema, Denies edema, Denies leg edema, Denies lightheadedness, Denies palpitations, Denies dyspnea, Denies dyspnea on exertion and Denies orthopnea Resp Denies cough, Denies dyspnea and Denies dyspnea on exertion GI Denies hematochezia and Denies change in stool character Musc Denies abnormal gait, Denies limited range of motion, Denies muscle cramps, Denies muscle weakness, Denies numbness, Denies radiating pain into limb, Denies stiffness and Denies tingling Neuro Denies abnormal gait, Denies dizziness, Denies numbness and Denies tingling Endo Denies palpitations Physical Exam Vital Signs: Last Vital Signs Pulse 62 04/30/25 13:02 BP 124/62 04/30/25 13:02 BMI result Body Mass Index 31.3 Const General: cooperative, healthy appearing, comfortable and no acute distress Orientation/consciousness: patient oriented x3 HEENT Head: Yes normal to inspection Eyes Sclerae: sclerae normal Neck Neck: Yes normal visual inspection and Yes no JVD Carotids: normal carotid upstroke Chest Chest palpation & inspection: normal inspection of the chest Resp Effort & Inspection: normal respiratory effort Auscultation: clear to auscultation bilaterally, no crackles, no rales, no rhonchi and no wheezes Cardio Jugular venous distension: no JVD Rate: regular rate Rhythm: regular rhythm Heart sounds: S1 normal heart sound present, S2 normal heart sound present, no gallops, no murmurs and no rubs Peripheral pulses: Peripheral pulses 2+ throughout GI Inspection: Yes normal to inspection Skin General skin exam: no rashes or lesions noted Neuro General: patient oriented x3 Extrem General: Yes normal to inspection, No no pedal edema and No calf tenderness Psych Appearance: grossly normal Mental Status: mental status grossly normal Speech and movement: Normal speech and movement present Office Procedures EKG Details: Today, read by me, normal sinus rhythm, can not exclude prior anterior infarct, low-voltage QRS, rate 62, QTC 401 milliseconds [id number], Complete Assessment & Plan Assessment & Plan (1) Diastolic CHF: Comment: Echo 2020 EF Code(s): I50.30 - Unspecified diastolic (congestive) heart failure Category: Medical Qualifiers: Heart failure chronicity: acute on chronic Qualified Code(s): I50.33 - Acute on chronic diastolic (congestive) heart failure Plan: History of diastolic heart failure. Last echocardiogram 04/22/2025 shows EF 70%, no valve abnormalities, grade 1 diastolic dysfunction.- unchanged from prior echo. She has not fluid overloaded on examination. She continues to follow with pulmonology for her lung issues. Compliant with CPAP mask at night for sleep apnea. Labs done 01/18/2025 showed potassium 3.9, creatinine 1.04. Continue Lasix 40 mg daily, Aldactone 50 mg daily. Signs and symptoms of heart failure reviewed. Cardiology follow-up 1 year, sooner if needed. (2) Diastolic dysfunction: Comment: Echo 04/22/2025 shows grade 1 diastolic dysfunction. Code(s): I51.89 - Other ill-defined heart diseases Category: Medical Plan: As above (3) Orthostatic hypotension dysautonomic syndrome: Code(s): G90.3 - Multi-system degeneration of the autonomic nervous system Category: Medical Plan: Stable at present. Has been asymptomatic this past year. Blood pressure adequately controlled. Continues hydralazine 25 mg in the a.m. and 75 mg in the p.m. Continues on Aldactone and amlodipine. Reviewed good hydration and avoid quick position changes. Plan Time spent on chart review, documentation, interview and assessment Coding Level of Care Code Est Pt Level 4 (55553) Complex EM visit Add On G2211 Diagnoses Diastolic CHF I50.33 Heart failure chronicity: acute on chronic Diastolic dysfunction I51.89 Orthostatic hypotension dysautonomic syndrome G90.3 CPT Codes EKG - CPT: [id number], Complete ([id number]) Time Spent (min) 28
[2025-04-30 13:02] VITALS: BP 124/62; PULSE 62; BMI 31.3
--- OUTSIDE RECORDS SUMMARY | 2025-04-30 14:04 | XMS_ITS | Clinical Summary ---
Author Organization [facility] [address] [facility] Address [address] [place] [address] Phone Care Team Providers Care Publicity Director Name Role Phone Vonnie Cali DO Primary [...] 1 endometrial adenocarcinoma. Patient is referred to TEST TECHNICIAN oncology at [facility]. She underwent total hysterectomy on 05/09/[address] Mora at [facility]. Nodes were negative. She did not require RT or Chemotherapy. Surgical History Surgery Date Site/Laterality Comments TONSILLECTOMY ADENOIDECTOMY, BILATERAL MYRINGOTOMY AND TUBES age 8 PROCEDURE: LA TONSILLECTOMY & ADENOIDECTOMY <AGE 13 ROBOTIC ASSISTED HYSTERECTOMY 05/09/2017 PROCEDURE: HISTORICAL ROBOTIC HYSTERECTOMY WITH OR WITHOUT BSO Medical History Medical History Date Comments Celiac disease 2007 DX:Celiac diseas e Other and unspecified noninf ectious gastroenteritis and colitis(558.9) 2003 DX:Other and unspec ified noninfectious gastroenteritis and colitis(558.9); COMMENT: viral syndrome PTSD (post-traumatic stress disorder) DX:PTSD (post-traumatic stress disorder); COMMENT: Abusive Endometrial cancer ([facility]/HCC V24, [facility]/HCC V28) 04/29/2017 DX:Endometrial cancer (HCC); COMMENT: Endometrial biopsy performed on April 26, 2017 showed grade 1 endometrial adenocarcinoma. Patient is referred to TEST TECHNICIAN oncology at [facility]. She underwent total hysterectomy on 05/09/[address] Mora at [facility]. Nodes were negative. She did [...] 3487 g (123 oz) F Vag-S pont [facility] Last Filed Vital Signs Vital Sign [...] age to complete this topic Insurance MEDICARE [facility] Care Teams Publicity Director Relationship Specialty Start Date End Date Vonnie Cali DO [address] [place] [address] PCP - General 04/29/17
--- OUTSIDE RECORDS SUMMARY | 2025-04-30 14:04 | XMS_ITS | Encounter Summary ---
Author Organization [facility] Address [address] [place] [address] Drive [address] [place] [address] Phone Care Team Providers Care Horologist Apprentice Name Role Phone Mikaela Dickens CORPORATE SALES REPRESENTATIVE Primary Care Provider Griselda Ha CORPORATE SALES REPRESENTATIVE Unavailable [phone] Celestina Zimmerman MD Primary Care Provider [phone] Encounter Details Date Type Department Care Team (Late st Contact Info) Description 01/12/2019 Procedure Pass [facility],Outside Imaging [address] [place], [place] [id number] Social History Tobacco Use Types Packs/Day Years [...] Description 05/17/2025 1:00 PM EDT Office Visit [facility] Neurology [address] [facility], 7th Floor, [address] [place] [address] Salvatore Crocker MD, PhD [address] [place] [address] [email or web address] documented as of this encounter Visit [...] documented as of this encounter Care Teams Horologist Apprentice Relationship Specialty Start Date End Date Mikaela Dickens NP [address] [place] [address] [place] [address] [place] [address] [email or web address] PCP - General Family Medicine 10/31/18 Celestina Zimmerman MD [facility] [place] [address] PCP - General Internal Medicine 04/20/21 Griselda Ha NP [address] [place] [address] Family Medicine 02/14/20 documented as of this encounter Additional Source Comments The information contained in this document represents components of the legal health record. It is not the complete legal health record.[facility]
--- OUTSIDE RECORDS SUMMARY | 2025-04-30 14:04 | XMS_ITS | Patient Health Record ---
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) Active confirmed Problem Non-pressure ulcer of left lower extremity, limited to breakdown of skin (L97.921) Active confirmed Problem Acquired hammer toe of left foot (7643233871728 103) Hammer toe of left foot (M20.42) Active confirmed Problem Ulcer of left lower leg (disorder) (8315781365284 9103) Non-pressure ulcer of left lower extremity with fat layer exposed (L97.922) Active confirmed Problem Non-pressure ulcer of right lower extremity with fat layer exposed (L97.912) Active confirmed Vital Signs Blood pressure diastolic 55 mm Hg 09/28/2024 Height 5ft5in in 09/28/2024 Blood pressure systolic 120 mm Hg 09/28/2024 Weight 185 lbs 09/28/2024 BMI 30.78 kg/m2 09/28/2024 Encounters Encounter Location Date Provider Diagnosis [facility] [place] [address] [place] [address] 09/28/2024 Alba Caal Ingrown nail L60.0 Assessments Encounter Date Diagnosis (ICD Code) Assessment Notes Treatment Notes Treatment Clinical Notes Section Notes 09/28/2024 Ingrown nail (ICD-10 - L60.0) Plan Of Treatment Pending Test Test Name Order Date [id number] SKIN/TISSUE 01/06/2023 Insurance Providers Payer Name Payer Address Payer Phone Subscriber Number Group Number Insured Name Patient Relationship to Insured Coverage Start Date Coverage End Date Medicare National [employer] [address] [place] [place] [address] [id number] Sana Mireles Self - patient is the insured [employer] [address] [place] [address] [id number] Sana Mireles Self - patient is the insured Medical (General) History Medical History History ICD Code Anxiety Cancer Measles Mumps Chicken pox Headaches/Migraines High blood pressure Psychiatric disorder Celiac disease Surgical History Surgery Date(Month/Year) hysterectomy Hospitalization History Reason Date(Month/Year) C- CHF, respiratory issues 09/2022
--- OUTSIDE RECORDS SUMMARY | 2025-04-30 14:04 | XMS_ITS | Clinical Summary ---
Author Organization [facility] Address [address] [place] [address] Care Team Providers Care Hand Pattern Marker Name Role Phone Celestina Zimmerman MD Primary Care Provider [phone] Allergies Active Allergy Reactions Criticality Noted Date [...] colonoscopy 03/27/2025 Overview (03/27/2025): 2016; repeat 2025 [place] colo 2005, repeat 2015 Chronic foot ulcer 03/15/2025 Hammer toe of left foot 03/15/2025 DANIS (obstructive sleep apnea) 03/15/2025 Ulcer of lower extremity 03/15/2025 Celiac disease 05/21/2024 Dysphagia 05/21/2024 Gastroesophageal reflux disease 05/21/2024 Atherosclerosis of coronary artery without angin a [...] 1 endometrial adenocarcinoma. Patient is referred to OUTPATIENT THERAPIST oncology at [facility]. She underwent total hysterectomy on 05/09/[address] Mora at [facility]. Nodes were negative. She did not require RT or Chemotherapy. Hypothyroidism 05/29/2009 Resolved Problems Problem Noted Date Diagnosed Date Resolved Date Urinary tract infectious disease 03/07/2022 04/29/2025 Encounters Date Type Department Care Team Description 03/27/2025 11:30 AM EDT Clinical Support [facility] [address] [place] [address] Erich Mckeon MD Otalgia of both ears [...] Bone Density (Females,Ages 65 and older) 10/08/2016 Influenza Vaccine 03/01/2025 05/29/2020, , 05/22/2019, Additional history exists COVID-19 Vaccine (5 - 2025- season) 2025 11/27/2021, 05/22/2021, 11/04/2020, Additional history exists DTaP/Tdap/Td Vaccines (3 - Td or Tdap) 08/16/2026 08/16/2016, 09/29/2012, 08/01/2003 Pneumococcal Vaccines 50+ Completed 2017, 03/22/2017, 05/09/2015 Hepatitis B Vaccines Aged Out No long er eligible based on patient's age to complete this topic Insurance MEDICARE PART A & [place] [id number] Care Teams Hand Pattern Marker Relationship Specialty Start Date End Date Celestina Zimmerman MD [address] [place] [address] PCP - General 03/27/25
--- OUTSIDE RECORDS SUMMARY | 2025-04-30 14:04 | XMS_ITS | Encounter Summary ---
Author Organization [facility] Address [address] [place] [address] [place] [address] Phone Care Team Providers Care Informatics Nurse Specialist Name Role Phone Mikaela Dickens NEW ACCOUNTS BANKING REPRESENTATIVE Primary Care Provider Griselda Ha NP Unavailable [phone] Celestina Zimmerman MD Primary Care Provider [phone] Reason for Referral * MRI/CAT Scan - Closed Specialty Diagnoses / Procedures Referred By Contac t Referred To Contact Procedures MRI Brain Outside (No Interpretation) System, Provider Not In, PhD Partners [employer] [address] Referral ID Status Reason Start Date Expiration Date Visits Re quested Visits Authorized [id number] Closed 01/12/2019 01/12/2020 1 1 Encounter Details Date Type Department Care Team (Late st Contact Info) Description 01/12/2019 Ancillary Orders [facility],Outside Imaging [address] [place] [address] System, Provider Not In, PhD Partners [employer] [address] [place] [address] Social History Tobacco Use Types Packs/Day Years [...] Description 05/17/2025 1:00 PM EDT Office Visit [facility] Neurology [address] [facility], 7th Floor, [address] [place] [address] Salvatore Crocker MD, PhD [address] [place] [address] [email or web address] documented as of this encounter Results [...] documented as of this encounter Care Teams Informatics Nurse Specialist Relationship Specialty Start Date End Date Mikaela Dickens NP [address] [place] [address] [place] [address] [email or web address] PCP - General Family Medicine 10/31/18 Celestina Zimmerman MD [address] [place] [address] [place] [address] PCP - General Internal Medicine 04/20/21 Griselda Ha NP [address] [place] [address] Family Medicine 02/14/20 documented as of this encounter Additional Source Comments The information contained in this document represents components of the legal health record. It is not the complete legal health record.[facility]
--- OUTSIDE RECORDS SUMMARY | 2025-04-30 14:04 | XMS_ITS | Encounter Summary ---
Author Organization [facility] Address [address] [place] [address] Drive [address] [place] [address] Phone Care Team Providers Care Heating And Air Conditioning Mechanic Name Role Phone Mikaela Dickens PETROLEUM PRODUCTION ENGINEER Primary Care Provider Griselda Ha PETROLEUM PRODUCTION ENGINEER Unavailable [phone] Celestina Zimmerman MD Primary Care Provider [phone] Encounter Details Date Type Department Care Team (Late st Contact Info) Description 02/21/2019 Procedure Pass [facility],Outside Imaging [address] [place], [place] [phone] Social History Tobacco Use Types Packs/Day Years [...] Description 05/17/2025 1:00 PM EDT Office Visit [facility] Neurology [address] [facility], 7th Floor, [address] [place] [address] Salvatore Crocker MD, PhD [address] [place] [address] [email or web address] documented as of this encounter Visit [...] documented as of this encounter Care Teams Heating And Air Conditioning Mechanic Relationship Specialty Start Date End Date Mikaela Dickens NP [address] [place] [address] [place] [address] [place] [address] [email or web address] PCP - General Family Medicine 10/31/18 Celestina Zimmerman MD [facility] [place] [address] PCP - General Internal Medicine 04/20/21 Griselda Ha NP [address] [place] [address] Family Medicine 02/14/20 documented as of this encounter Additional Source Comments The information contained in this document represents components of the legal health record. It is not the complete legal health record.[facility]
--- OUTSIDE RECORDS SUMMARY | 2025-04-30 14:04 | XMS_ITS | Encounter Summary ---
Author Organization [facility] Address [address] [place] [address] [place] [address] Phone Care Team Providers Care Contractor Broomcorn Threshing Name Role Phone Mikaela Dickens SENIOR WIND TURBINE TECHNICIAN Primary Care Provider Griselda Ha NP Unavailable [phone] Celestina Zimmerman MD Primary Care Provider [phone] Reason for Referral * MRI/CAT Scan - Closed Specialty Diagnoses / Procedures Referred By Contac t Referred To Contact Procedures MRI Brain Outside (No Interpretation) System, Provider Not In, PhD Partners [employer] [address] Referral ID Status Reason Start Date Expiration Date Visits Re quested Visits Authorized [id number] Closed 02/21/2019 02/21/2020 1 1 Encounter Details Date Type Department Care Team (Late st Contact Info) Description 02/21/2019 Ancillary Orders [facility],Outside Imaging [address] [place] [address] System, Provider Not In, PhD Partners [employer] [address] [place] [address] Social History Tobacco Use Types Packs/Day Years [...] Description 05/17/2025 1:00 PM EDT Office Visit [facility] Neurology [address] [facility], 7th Floor, [address] [place] [address] Salvatore Crocker MD, PhD [address] [place] [address] [email or web address] documented as of this encounter Results [...] documented as of this encounter Care Teams Contractor Broomcorn Threshing Relationship Specialty Start Date End Date Mikaela Dickens NP [address] [place] [address] [place] [address] [email or web address] PCP - General Family Medicine 10/31/18 Celestina Zimmerman MD [address] [place] [address] [place] [address] PCP - General Internal Medicine 04/20/21 Griselda Ha NP [address] [place] [address] Family Medicine 02/14/20 documented as of this encounter Additional Source Comments The information contained in this document represents components of the legal health record. It is not the complete legal health record.[facility]
--- OUTSIDE RECORDS SUMMARY | 2025-04-30 14:05 | XMS_ITS | Encounter Summary ---
Author Organization [facility] Address [address] [place] [address] Drive [address] [place] [address] Phone Care Team Providers Care Rn Nicu Name Role Phone Dilcia Griselad Frost INDUSTRIAL PSYCHOLOGY PROFESSOR Unavailable [phone] Celestina Zimmerman MD Primary Care Provider [phone] Encounter Details Date Type Department Care Team (Late st Contact Info) Description 02/14/2022 Procedure Pass [facility], Ct Scan - [address] [address] Social History Tobacco Use Types Packs/Day Years [...] Description 05/17/2025 1:00 PM EDT Office Visit [facility] Neurology [address] [facility], 7th Floor, [address] [place] [address] Salvatore Crocker MD, PhD [address] [place] [address] [email or web address] documented as of this encounter Visit [...] documented as of this encounter Care Teams Rn Nicu Relationship Specialty Start Date End Date Celestina Zimmerman MD [facility] [place] [address] PCP - General Internal Medicine 04/20/21 Griselda Ha NP [address] [place] [address] Family Medicine 02/14/20 documented as of this encounter Additional Source Comments The information contained in this document represents components of the legal health record. It is not the complete legal health record.[facility]
--- OUTSIDE RECORDS SUMMARY | 2025-04-30 14:05 | XMS_ITS | Encounter Summary ---
Author Organization [facility] Address [address] [place] [address] Drive [address] [place] [address] Phone Care Team Providers Care Clerical Adjuster Name Role Phone Dilcia Griselda Frost CUSTOMER COMPLAINT CLERK Unavailable Celestina Zimmerman MD Primary Care Provider [phone] Encounter Details Date Type Department Care Team (Late st Contact Info) Description 02/13/2022 Procedure Pass [facility], Ct Scan - [address] [address] Social History Tobacco Use Types Packs/Day Years [...] 7:00 PM EDT Loraine Hernandez RN * Story Suicide Severity Rating Scale (Screener/Recent Self-Report) Question [...] Description 05/17/2025 1:00 PM EDT Office Visit [facility] Neurology [address] [place] [address], 7th Floor, [address] [place] [address] Salvatore Crocker MD, PhD [address] [place] [address] [email or web address] documented as of this encounter Visit [...] documented as of this encounter Care Teams Clerical Adjuster Relationship Specialty Start Date End Date Celestina Zimmerman MD [address] [place] [address] PCP - General Internal Medicine 04/20/21 Griselda Ha NP [address] [place] [address] Family Medicine 02/14/20 documented as of this encounter Additional Source Comments The information contained in this document represents components of the legal health record. It is not the complete legal health record.[facility]
--- OUTSIDE RECORDS SUMMARY | 2025-04-30 14:05 | XMS_ITS | Encounter Summary ---
Author Organization [facility] Address [address] [place] [address] [address] [place] [address] Phone Care Team Providers Care Coding Advisor Name Role Phone Dilcia Griselda Frost UI DEVELOPER WITH ANGULAR JS Unavailable [phone] Celestina Zimmerman MD Primary Care Provider [phone] Encounter Details Date Type Department Care Team (Late st Contact Info) Description 10/04/2023 Procedure Pass [facility] Admitting Dept Virtual Department [address] [place] [phone] Social History Tobacco Use Types Packs/Day Years [...] Visit [facility] Neurology [address] [place] [address], 7th Floor, [address] [place] [address] Salvatore Crocker MD, PhD [address] [place] [address] [email or web address] documented as of this encounter Visit Diagnoses Not on filedocumented in this encounter Additional Health Concerns Infection Onset Date Last Indicated Resolved Time CoV-Risk 09/28/2023 09/28/2023 2023 1:2 2 AM EST Assessment Noted Time PHQ-2 Depression Total Score: 0 03/06/20 20 12:56 PM EDT documented as of this encounter Care Teams Coding Advisor Relationship Specialty Start Date End Date Celestina Zimmerman MD [address] [facility] [place] [address] PCP - General Internal Medicine 04/20/21 Griselda Ha NP [address] [place] [address] Family Medicine 02/14/20 documented as of this encounter Additional Source Comments The information contained in this document represents components of the legal health record. It is not the complete legal health record.[facility]
--- OUTSIDE RECORDS SUMMARY | 2025-04-30 14:05 | XMS_ITS | Clinical Summary ---
Author Organization [facility] Address [address] [place] [address] [place] [address] Phone Care Team Providers Care Search Engine Optimization Specialist Name Role Phone Ez Han Margot NP Unavailable [phone] Celestina Zimmerman MD Primary Care Provider [phone] Allergies Active Allergy Reactions Criticality Noted Date [...] Department Care Team Description 03/14/[address] [facility] Rheumatology at [address] [address] Noelle Wooten MD Weakness (Primary Dx) 02/28/2025 3:30 PM EDT - 02/28/2025 11:59 PM EDT Hospital Encounter [facility] Pathology Outpatient Lab [address] [place] [address] Nolele Wooten MD Discharge Disposition: Home or Self Care 02/28/2025 2:40 PM EDT Office Visit [facility] Rheumatology at [address] [address] Noelle Wooten MD Weakness (Primary Dx) from Last 3 Months Immunizations Immunization Administration Dates Next Due [id number] FORMULATION 04/16/2011,05/02 INFLUENZA, SPLIT VIRUS, TRIV ALENT [...] Visit [facility] [place] [address] [place] [address], 7th Floor, [address] [place] [address] Salvatore Crocker MD, PhD [address] [place] [address] [email or web address] Health Maintenance Due Date Last Done [...] Priority Date/Time Associated Diagnosis Comments OUTSIDE LAB 04/08/2025 OUTSIDE LAB 03/28/2025 SEDIMENTATION RATE (ESR) Routine [...] to Health Maintenance Results * Outside Lab (04/08/2025) Only the most recent of2 resultswithin the time period is included. us Scanning Interface Provider LAB BLOOD ORDERABLES Final Result * (ABNORMAL) C-reactive protein, high sensitivity (02/28/2025 3:30 PM EDT) Pathologist [facility] CRP, HIGH SENSITIVITY 3.1(H) 0.0 - 3.0 mg/L [facility] Comment: For cardiac risk assessment, reference range is <3.0mg/L. For inflammation assessment, reference range is <10.0mg/L. 02/28/2025 3:30 PM EDT 02/28/2025 7:22 PM EDT us Noelle Wooten MD LAB BLOOD ORDERABLES Final Resu lt [facility] [address] [place] [address] * (ABNORMAL) Aldolase (02/28/2025 3:30 PM EDT) ALDOLASE 8.2(H) <7.7 U/L [facility] DPT OF LAB MED AND PAT+ Comment: (NOTE) ADDITIONAL INFORMATION This test has been modified from the bottle washing machine operator's instructions. Its performance characteristics were determined by [facility] in a manner consistent with CLIA requirements. This test has not been cleared or approved by the U.S. Food and Drug Administration. 02/28/2025 3:30 PM EDT 02/28/2025 7:21 PM EDT us Noelle Wooten MD LAB BLOOD ORDERABLES Final Resu lt Performing Organization Address [facility] Co de Phone Number [facility] DPT OF LAB MED AND PAT+ [address] [place] [address] * Sedimentation rate (ESR) (02/28/2025 3:30 PM EDT) ESR 15 0 - 20 mm/h [facility] 02/28/2025 3:30 PM EDT 02/28/2025 7:22 PM EDT us Noelle Wooten MD LAB BLOOD ORDERABLES Final Resu lt Performing Organization Address [facility] Co de Phone Number [address] [address] * CPK (creatine kinase) (02/28/2025 3:30 PM EDT) CREATINE KINASE 171 50 - 185 U/L [facility] 02/28/2025 3:30 PM EDT 02/28/2025 7:22 PM EDT us Noelle Wooten MD LAB BLOOD ORDERABLES Final Resu lt Performing Organization Address [facility] Co de Phone Number [address] [address] * TSH with reflex (09/28/2023 7:22 PM EST) TSH 3.18 0.27 - 4.20 uIU/mL [facility] Blood 09/28/2023 7:22 PM EST 09/28/2023 7:24 PM EST Eduardo Persaud PA-C LAB BLOOD ORDERABLES Final Re sult Performing Organization Address City/[facility]/ZIP Co de Phone Number [address] [address] * (ABNORMAL) Basic metabolic panel (09/28/2023 7:22 PM EST) SODIUM 140 133 - 146 mmol/L [facility] CHLORIDE 101 96 - 108 mmol/L [facility] POTASSIUM 3.6 3.3 - 5.1 mmol/L [facility] CO2 27 21 - 35 mmol/L [facility] BUN 18 6 - 19 mg/dL [facility] CREATININE 1.10 0.5 - 1.5 mg/dL [facility] GLUCOSE 99 70 - 99 mg/dL [facility] CALCIUM 9.2 8.4 - 10.3 mg/dL [facility] EGFR 54(L) >59 mL/min/1.7 3m2 [facility] Comment:Estimated glomerular filtration rate calculated using the CKD-EPI refit equation. ANION GAP 16 10 - 20 mmol/L [facility] Blood 09/28/2023 7:22 PM EST 09/28/2023 7:24 PM EST Eduardo Persaud PA-C LAB BLOOD ORDERABLES Final Re sult [address] [address] from Last 3 Months or Most Recently Relevant to Health Maintenance Insurance MEDICARE PART A & B eCozy CROSS MEDEX SUPPLEMENT MEDICARE PART A & B LettuceThinner MEDEX SUPPLEMENT MEDICARE PART A & B LettuceThinner MEDEX SUPPLEMENT MEDICARE PART A & B LettuceThinner MEDEX SUPPLEMENT MEDICARE PART A & B LettuceThinner MEDEX SUPPLEMENT MEDICARE PART A & B BLUE CROSS MEDEX SUPPLEMENT MEDICARE PART A & B eCozy CROSS MEDEX SUPPLEMENT MEDICARE PART A & B LettuceThinner MEDEX SUPPLEMENT MEDICARE PART A & B LettuceThinner MEDEX SUPPLEMENT Advance Directives For more information, please contact: [phone] (9AM - 5PM Jackie/[facility], Tuesday-Tuesday) Documents on File Type Date Recorded Patient Lipstick Molder Expl anation Healthcare Proxy 02/14/2022 signed Healthcare Agents on File Name Relationship Healthcare Agent Relationship Communication Niels De Jesus Spouse .Primary Health Care Agent (Proxy form on file) Alba Martinez Daughter Alternate Health care Agent (Proxy form on file) Care Teams Search Engine Optimization Specialist Relationship Specialty Start Date End Date Celestina Zimmerman MD [address] [place] [address] PCP - General Internal Medicine 04/20/21 Griselda Ha NP [address] [place] [address] Family Medicine 02/14/20 Additional Source Comments The information contained in this document represents components of the legal health record. It is not the complete legal health record.[facility]
--- OUTSIDE RECORDS SUMMARY | 2025-04-30 14:05 | XMS_ITS | Encounter Summary ---
Author Organization [facility] Address [address] [place] [address] Drive [address] [place] [address] Phone Care Team Providers Care Information Assurance Manager Name Role Phone Dilcia Griselda Frost EXPEDITER Unavailable [phone] Celestina Zimmerman MD Primary Care Provider [phone] Encounter Details Date Type Department Care Team (Late st Contact Info) Description 09/28/2023 Procedure Pass [facility], Ct Scan - [address] [address] Social History Tobacco Use Types Packs/Day Years [...] 09/28/2023 3:13 PM Dipak Larsen RN * [facility] Suicide Severity Rating Scale (Screener/Recent Self-Report) Question [...] Description 05/17/2025 1:00 PM EDT Office Visit [facility] [place]rology [address] [place] [address], 7th Floor, [address] [place] [address] Salvatore Crocker MD, PhD [address] [place] [address] [email or web address] documented as of this encounter Visit Diagnoses Not on filedocumented in this encounter Additional Health Concerns Infection Onset Date Last Indicated Resolved Time CoV-Risk 09/28/2023 09/28/2023 2023 1:22 AM EST Assessment Noted Time PHQ-2 Depression Total Score: 0 03/06/20 20 12:56 PM EDT documented as of this encounter Care Teams Information Assurance Manager Relationship Specialty Start Date End Date Celestina Zimmerman MD [facility] [place] [address] PCP - General Internal Medicine 04/20/21 Griselda Ha NP [address] [place] [address] Family Medicine 02/14/20 documented as of this encounter Additional Source Comments The information contained in this document represents components of the legal health record. It is not the complete legal health record.[facility]
== END 2025-04-30 13:28 | disposition home or self-care (01) ==
LOC: HO.HCS 12:57
PROVIDERS: PCP Internal Medicine; Visit Provider Nurse Practitioner Family
DX: I50.33 Acute on chronic diastolic (congestive) heart failure (principal); I51.89 Other ill-defined heart diseases; G90.3 Multi-system degeneration of the autonomic nervous system
CPT/HCPCS: 93010; 99214; G2211

== ENCOUNTER → 2025-04-30 12:56 | Outpatient (BNVA) | payer MEDICARE, SELFPAY | PROVIDERS: PCP Internal Medicine; Visit Provider Nurse Practitioner Family | DX: I50.33 Acute on chronic diastolic (congestive) heart failure (principal); G47.33 Obstructive sleep apnea (adult) (pediatric); Z99.89 Dependence on other enabling machines and devices; I51.89 Other ill-defined heart diseases; G90.3 Multi-system degeneration of the autonomic nervous system | CPT/HCPCS: 93005; 99212 ==

== ENCOUNTER 2025-05-31 14:51 | Outpatient (AMB) | payer MEDICARE, SELFPAY ==
--- OUTSIDE RECORDS SUMMARY | 2024-05-28 11:00 | XMS_ITS | Continuity of Care Document ---
Author Organization [facility] Address [address] [place] [address] Phone Care Team Providers Care Drainman Name Role Phone Sesar QUINTERO, RVT, RPVI, [...] CT & [place] No Charge For Services Surgical Stockings Duomed Knee High 15-2 0 Office/Outpt E&M Established 15 Mins- CT & [place] Office/Outpt E&M Established 15 Mins Aug Duplex [...] Mins- [place] & [place] [facility], [address] [place] [address] Dr Mccollum [facility] [address], [id number], [place] tel:[phone] [facility] Venous insufficiency (chronic) (peripheral)E ssential (primary) hypertension 4 Sesar QUINTERO, RVT, RPASH Roper. [address] [facility], [address], [place], [place], [id number], [place]. tel:[phone] Referring Provider: Celestina Zimmerman MD S, [address] [place] [address], [address]. tel:[phone] [facility], [address] [place] [address] Dr Mccollum [address], [place], [id number], [place] tel:[phone] CVR [facility] Chronic venous hypertension (idiopathic) with other complications of right lower extremity Oct-2 4 Sesar QUINTERO RVT, RPVI Robert. [address] [place] [address], Suite [facility], [place], [id number], [place]. tel:[phone] Referring Provider: Celestina Zimmerman MD S, [address] [place] [address], [place], [address]. tel:[phone] [facility], [address] [place] [address] Dr Mccollum [address]SuAnuj weathers [place], [id number], [place] tel:[phone] CV[place] - [place] Encounter for follow-up examination after completed treatment for conditions other than malignant nePain in right leg Sep-2 4 Sesar QUINTERO RVT, RPVI Robert. [address] [place] [address], Suite [facility], [place], [id number], [place]. tel:[phone] Referring Provider: Celestina Zimmerman MD S, [address] [place] [address], [place], [address]. tel:[phone] [place] [facility], [address] [place] [address] Dr Mccollum 1000Suite Anuj Zaldivar [place], [id number], [place] tel:[phone] CVR - [facility] Varicose veins of right lower extremity with other complications Sep-2 4 Sesar QUINTERO RVT, RPVI Robert. [address] [place] [address], Suite [facility], [place], [id number], [place]. tel:[phone] Referring Provider: Celestina Zimmerman MD S, [address] [place] [address], [place], [address]. tel:[phone] Office/Outpt E&M Established 15 Mins- [place] & [place] [facility], [address] [place] [address] Dr Mccollum 1000SuAnuj weathers [place], [id number], [place] tel:[phone] CVR - [facility] Chronic venous hypertension (idiopathic) without complications of bilateral lower extremity Sep-1 4 Sesar QUINTERO RVT, RPVI Robert. [address] [place] [address], [address], [place], [id number], [place]. tel:[phone] Referring Provider: Celestina Zimmerman MD S, [address] [place] [address], [place], [address]. tel:[phone] [facility], [address] [place] [address] Dr Mccollum 1000Suite 1000Anuj [place], [id number], [place] tel:[phone] CVR - [place] Encounter for follow-up examination after completed treatment for conditions other than malignant nePain in right leg 4 Sesar QUINTERO RVT, SUMEET Roper. [address] [place] [address], [place] [address], [facility] [place], [id number], [place]. tel:[phone] Referring Provider: Celestina Zimmerman MD S, [address] [place] [address], [address]. tel:[phone] [facility], [address] [place] [address] [facility] [place] [address], [id number], [place] tel:[phone] CVR - [place] [facility] Encounter for follow-up examination after completed treatment for conditions other than malignant nePain in right lower leg 4 Sesar QUINTERO RVT, SUMEET Roper. [address] [place] [address], [place] [address], [place], [id number], [place]. tel:[phone] Referring Provider: Celestina Zimmerman MD S, [address] [place] [address], [address]. tel:[phone] [facility], [address] [place] [address] Dr Mccollum 1000Suite 1000Anuj [place], [id number], [place] tel:[phone] CVR - [place] [facility] Encounter for follow-up examination after completed treatment for conditions other than malignant neChronic venous hypertension (idiopathic) with other complications of right lower extremity 4 Sesar QUINTERO RVT, SUMEET [place]. [address] [place] [address], Suite [facility], [place], [id number], [place]. tel:[phone] Referring Provider: Celestina Zimmerman MD S, [address] [place], [place] [address], [place], [address]. tel:[phone] [facility], [address] [place] [address] Dr Mccollum 1000SuAnuj weathers [place], [id number], [place] tel:[phone] CV[place] - [place] Chronic venous hypertension (idiopathic) with inflammation of right lower extremity 0 4 Owen Cole. [address] [facility], [address], [facility] [place], [id number], [place]. tel:[phone] Referring Provider: Celestina Zimmerman MD S, [address] [place] [address], [place], [address]. tel:[phone] [facility], [address] [place] [address] Dr Mccollum 1000SuAnuj weathers [place], [id number], [place] tel:[phone] CV[place] - [place] Varicose veins of right lower extremity with other complications 4 Sesar QUINTERO RVT, SUMEET Roper. [address] [facility], [place] [address], [facility] [place] [place], [id number], [place]. tel:[phone] Referring Provider: Celestina Zimmerman MD S, [address] [place] [address], [place], [address]. tel:[phone] Office/Outpt E&M Established 25 Mins- [place] & [place] [facility], [address] [place] [address] Dr Mccollum 1000SuAnuj weathers MD, [id number], [place] tel:[phone] CV[place] - [place] Chronic venous hypertension (idiopathic) with other complications of bilateral lower extremity 4 Sesar QUINTERO RVT, RPVI Robert. [address] [facility], [address], [facility] [place], [id number], [place]. tel:[phone] Referring Provider: Celestina Zimmerman MD S, [address] [place] [address], [place], [address]. tel:[phone] [facility] MD [facility], [address] [place] [address] Dr Mccollum 1000SuAnuj weathers [place], [id number], [place] tel:[phone] CVR - [facility] Chronic venous hypertension (idiopathic) with other complications of bilateral lower extremity 4 Sesar QUINTERO RVT, RPVI Robert. [address] [place] [address], [place], [place], [id number], [place]. tel:[phone] Referring Provider: Celestina Zimmerman MD S, [address] [place] [address], [place], [address]. tel:[phone] [facility], [address] [place] [address] Dr Mccollum 1000Suite Anuj Zaldivar [place], [id number], [place] tel:[phone] CVR - [facility] Venous insufficiency (chronic) (peripheral)N evus, non-neoplasti c 4 Owen Cole. [address] [place] [address], [place], [place], [id number], [place]. tel:[phone] Referring Provider: Celestina Zimmerman MD S, [address] [place] [address], [place], [address]. tel:[phone] Office/Outpt E&M Established 15 Mins- CT & [place] [facility], [address] [place] [address] Dr Mccollum 1000Suite 1000Anuj [place], [id number], [place] tel:[phone] CVR - [facility] Essential (primary) hypertensionV enous insufficiency (chronic) (peripheral)P ain in right lower legChronic venous hypertension (idiopathic) without complications of bilateral lower extremity 4 Sesar QUINTERO, SURESH, SUMEET Roper. [facility] [place] [address], [place], [place], [id number], [place]. tel:[phone] Referring Provider: Celestina Zimmerman MD S, [address] [place] [address], [place], [address]. tel:[phone] Office/Outpt E&M Established 15 Mins [facility], [address] [place] [address] Dr Mccollum 1000Suite 1000Anuj [place], [id number], [place] tel:[phone] CV[place] - [place] Localized edemaVenous insufficiency (chronic) (peripheral)E ssential (primary) hypertension 4 Darrell Henao. [address] [facility] [address], [facility] [place], [id number], [place]. tel:[phone] Referring Provider: Celestina Zimmerman MD S, [address] [place] [address], [place], [address]. tel:[phone] [facility], [address] [place] [address] [facility] 1000Suite 1000Anuj [place], [id number], [place] tel:[phone] [facility] - [facility] Chronic venous hypertension (idiopathic) with other complications of bilateral lower extremity 4 Sesar QUINTERO, JUVENTINOT, VI Judson. [address] [place] [address], [facility] [place], [id number], [place]. tel:[phone] Referring Provider: Celestina Zimmerman MD S, [address] [place] [address], [place], [address]. tel:[phone] [facility], [address] [place] [address] [facility] 1000Suite 1000Anuj [place], [id number], [place] tel:[phone] CVR - [facility] Encounter for follow-up examination after completed treatment for conditions other than malignant nePain in left leg May- 3 Liam QUINTERO FACS RVT ASH Cha. [facility] [place] [address], [place], [address], [place]. tel:[phone] Referring Provider: Shad Wheeler MD FACS RVT RP, [address] [place] [address], [place], [address]. tel:[phone] [place] [facility], [address] [place] [address] [address] 1000Anuj [place], [id number], [place] tel:[phone] CVR - [facility] Chronic venous hypertension (idiopathic) with inflammation of left lower extremity May- 3 Sesar QUINTERO RVT, RPVI Judson. [address] [place] [address], Suite [facility], [facility] [place] [place], [id number], [place]. tel:[phone] Referring Provider: Shad Wheeler MD FACS RVT RP, [facility] [address], [facility] [place], [address]. tel:[phone] [place] [facility], [address] [place] [address] Dr [address], [place], [id number], [place] tel:[phone] CVR - [place] Encounter for follow-up examination after completed treatment for conditions other than malignant nePain in right leg Sep-2 3 Liam QUINTERO FACS RVT [facility] Shad Cha. Critical [facility]0 [facility], [address], [place], [address], [place]. tel:[phone] Referring Provider: Shad Wheeler MD FACS RVT [facility], [address] [place] [address] Suite [facility], [facility] [place], [address]. tel:[phone] [place] [facility], [address] [place] [address] [address], [place], [id number], [place] tel:[phone] CV[place] - [place] Chronic venous hypertension w inflammation of r low extrem Sep-2 3 Sesar QUINTERO, RVT, [facility] Judson. [address] [place] [address], Suite [facility], [place], [id number], [place]. tel:[phone] Referring Provider: Shad Wheeler MD FACS T [facility], [address] [place] [address] [address], [facility] [place], [address]. tel:[phone] Office/Outpt E&M Established 10 Mins - [facility], [address] [place] [address] [address], [place], [id number], [place] tel:[phone] [place] Chronic venous htn w oth comp of bilateral low extrm Sep-1 3 Liam QUINTERO FACS RVT ASH Cha. [address] [place] [address], [address], [place], [address], [place]. tel:[phone] Referring Provider: Shad Wheeler MD FACS RVT [facility], [address] [place] [address] [address], [place], [address]. tel:[phone] [place] [facility], [address] [place] [address] [address], [place], [id number], [place] tel:[phone] CV[place] - [place] Pain in right legPain in left leg 3 Liam QUINTERO [facility] Shad Cha. [address] [facility], [address], [facility] [place], [address], [place]. tel:[phone] Referring Provider: Shad Wheeler MD [facility], [address] [place] [address] [address], [facility] [place], [address]. tel:[phone] Office/Oupt E&M New Pt 45 Mins [facility], [address] [place] [address] [address], [place], [id number], [place] tel:[phone] CVR - [place] Chronic venous htn w oth comp of bilateral low extrmPain in right lower legPain in left lower legPain in right legRestless legs syndromeEssen tial (primary) hypertensionP ain in left legCramp and spasmLocalize d edema 3 Liam QUINTERO [facility] Shad Semaj. [address] [place] [address], Suite [facility], [facility] [place], [address], [place]. tel:[phone] Referring Provider: Shad Wheeler MD [facility], [address] [place] [address], [facility] [place], [address]. tel:[phone] Family History Family Member Type Diagnosis Age At Onset No Information Payers Payer name Insurance type Covered green party ID Authorsaraha tirosa(s) Medicare DANYELL VALADEZ [id number] [facility] DANYELL [id number] Social History Type Description Quantity Date Captured [...] Information Instructions Date Instruction Additional Infor mation Patient education booklet given Related to Venous insufficiency (chronic) (peripheral) Pre and post instruc tions reviewed and provided Related to Venous insufficiency (chronic) (peripheral) Diet education Related to Body mass index (BMI) 28.0-28.9, adult Giving Encouragement to exercise Related to Body mass index (BMI) 28.0-28.9, adult Lifestyle education [...] B kandi mass index (BMI) 28.0-28.9, adult Patient education booklet given Related to Chronic venous hypertension (idiopathic) with other complications of bilateral lower extremity Diet education Related to Body mass index (BMI) 28.0-28.9, adult Giving Encouragement to exercise Related to Body mass index (BMI) 28.0-28.9, adult Pre and post instruc tions reviewed and provided Related to Chronic venous hypertension (idiopathic) with other complications of bilateral lower extremity Lifestyle education Related to B kandi mass index (BMI) 28.0-28.9, adult Compression stocking usage as conservative measure Related to Pain in right lower leg Lifestyle education Related to B kandi mass index (BMI) 30.0-30.9, Giving Encouragement to exercise Related to Body mass index (BMI) 30.0-30.9, Diet education Related to Body mass index (BMI) 30.0-30.9, Patient education booklet given Related to Pain in right lower leg Diet education Related to Body mass index (BMI) 30.0-30.9, adult Giving Encouragement to exercise Related to Body mass index (BMI) 30.0-30.9, adult Lifestyle education Related to B kandi mass index (BMI) 30.0-30.9, adult Patient education booklet given Related to Localized edema Pre and post instruc tions reviewed and [...]
--- NOTE | 2025-05-31 15:10 | MHC.OFFVIS ---
Intake Visit Reasons: urinary incontinence Intake Note: New patient presents today for initial visit for urinary incontinence Urology Medication:Oxybutynin Blood Thinner:None Antibiotic Allergies:None PVR:246ml Allergies gluten (GLUTEN) Allergy (Severe, Verified 05/31/25 15:13) ABD PAIN Sulfa (Sulfonamide Antibiotics) (SULFA(SULFONAMIDE ANTIBIOTICS)) Allergy (Severe, Verified 05/31/25 15:13) Rash mirtazapine Adverse Reaction (Severe, Verified 05/31/25 15:13) peripheral edema PFSH Medical History Spondylosis, cervical Headache Cervicalgia Chronic rhinitis Pulmonary nodule Pulmonary nodule Hearing loss Annual physical exam Dysphagia Vocal cord dysfunction Weight gain Edema Urinary incontinence Asthma History of concussion Shortness of breath Lower extremity edema Dyspnea Hypoxemia requiring supplemental oxygen Nonspecific interstitial pneumonitis Peripheral neuropathy Psychiatric disorder Mammogram normal Hyperlipemia Pulmonary hypertension DANIS on CPAP Pneumonitis Orthostatic hypotension dysautonomic syndrome Hypothyroid HTN (hypertension) Celiac disease Diastolic CHF Surgical History Hx of esophagogastroduodenoscopy History of total abdominal hysterectomy and bilateral salpingo-oophorectomy Endometrial adenocarcinoma History of colonoscopy Family History Father Branscomb cell cancer HTN (hypertension) CVD (cardiovascular disease) Mother Crohn disease Cancer Maternal Grandfather No problems noted. Maternal Grandmother No problems noted. Paternal Grandfather CVD (cardiovascular disease) Paternal Grandmother COPD (chronic obstructive pulmonary disease) Brother No problems noted. Sister No problems noted. Daughter No problems noted. Social History Household Members: Spouse Housing: House Are you a primary hospice care transitions coordinator to a significant other at home: No Do you presently have visiting nurse or other home services: No Alcohol intake: current Alcohol intake frequency: holidays/special occasions only Comment: pt resting Patient Tobacco Use Status: Former Tobacco user Tobacco use type: Cigarette Years Smoked: 2 e-Cigarette/Vaping Use: Never Used Second Hand Smoke Exposure: No Advance Directives Date on File: 01/26/21 service: No Current occupational status: retired Cognitive needs: No Hearing needs: Yes Vision needs: Yes Office Procedures Post Void Residual Post Residual Void Post Void Residual (PVR): 246 [id number] Void Residual by ultrasound Results AMB Urinalysis, Automated UA Leukoctes 0 Aileen/uL Last Edit by Sarah Andrade on 05/31/25 16:48 UA Nitrite Negative Last Edit by Sarah Andrade on 05/31/25 16:48 UA Urobilinogen 0.2 mg/dL Last Edit by Sarah Andrade on 05/31/25 16:48 UA Protein 0 mg/dL Last Edit by Sarah Andrade on 05/31/25 16:48 UA pH 6.0 Last Edit by Sarah Andrade on 05/31/25 16:48 UA Blood 0 Tre/uL Last Edit by Sarah Andrade on 05/31/25 16:48 UA Specific [place] 1.010 Last Edit by Sarah Andrade on 05/31/25 16:48 UA Ketone Negative Last Edit by Sarah Andrade on 05/31/25 16:48 UA Bilirubin 0 mg/dL Last Edit by Sarah Andrade on 05/31/25 16:48 UA Glucose 0 mg/dL Last Edit by Sarah Andrade on 05/31/25 16:48 Assessment & Plan Assessment & Plan Orders: Orders AMB Urinalysis Automated Today N39.0 - Urinary tract infection, site not specified, R32 - Unspecified urinary incontinence AMB Post Void Residual by ultrasound Today N39.0 - Urinary tract infection, site not specified, R32 - Unspecified urinary incontinence Coding CPT Codes Post Residual Void - PVR CPT Code: 76353-[id number] Void Residual by ultrasound ([id number])
--- OUTSIDE RECORDS SUMMARY | 2025-05-31 15:19 | XMS_ITS | Encounter Summary ---
Author Organization [facility] Address [address] [place] [address] [place] [address] Phone Care Team Providers Care Transport Nurse Name Role Phone Mikaela Dickens DATA SECURITY ADMINISTRATOR Primary Care Provider Griselda Ha DATA SECURITY ADMINISTRATOR Unavailable [phone] Celestina Zimmerman MD Primary Care Provider [phone] Reason for Referral * MRI/CAT Scan - Closed Specialty Diagnoses / Procedures Referred By Contac t Referred To Contact Procedures MRI Brain Outside (No Interpretation) System, Provider Not In, [facility] [address] [address] Referral ID Status Reason Start Date Expiration Date Visits Re quested Visits Authorized [id number] Closed 02/21/2019 02/21/2020 1 1 Encounter Details Date Type Department Care Team (Late st Contact Info) Description 02/21/2019 Ancillary Orders [facility],Outside Imaging [address] [place] [address] System, Provider Not In, [facility] [employer] [address] Social History Tobacco Use Types Packs/Day Years [...] Care Team (Late st Contact Info) Description 01/20/2026 2:10 PM EDT Office Visit [facility]'s Department of Neurology [address] [facility] [address] [place] [address] Eh Shields MD [address] [place] [address] [email or web address] documented as of this encounter Results [...] documented as of this encounter Care Teams Transport Nurse Relationship Specialty Start Date End Date Mikaela Dickens NP [address] [place] [address] [place] [address] [email or web address] PCP - General Family Medicine 10/31/18 Celestina Zimmerman MD [address] [place] [address] PCP - General Internal Medicine 04/20/21 Griselda Ha NP [address] [place] [address] Dr Meade [address] [place] [address] Family Medicine 02/14/20 documented as of this encounter Additional Source Comments The information contained in this document represents components of the legal health record. It is not the complete legal health record.[facility]
--- OUTSIDE RECORDS SUMMARY | 2025-05-31 15:19 | XMS_ITS | Encounter Summary ---
Author Organization [facility] Address [address] [place] [address] Phone Care Team Providers Care Fitter Mechanic Name Role Phone Mikaela Dickens SURVEILLANCE SUPERVISOR Primary Care Provider Griselda Ha SURVEILLANCE SUPERVISOR Unavailable [phone] Celestina Zimmerman MD Primary Care Provider [phone] Encounter Details Date Type Department Care Team (Late st Contact Info) Description 01/12/2019 Procedure Pass [facility],Outside Imaging [address] [place], [place] [id number] Social History Tobacco Use Types Packs/Day Years [...] Description 01/20/2026 2:10 PM EDT Office Visit [facility] Department of Neurology [address] [facility] [address] [place] [address] Eh Shields MD [address] [place] [address] [email or web address] documented as of this encounter Visit Diagnoses [...] documented as of this encounter Care Teams Fitter Mechanic Relationship Specialty Start Date End Date Mikaela Dickens NP [address] [place] [address] [place] [address] [email or web address] PCP - General Family Medicine 10/31/18 Celestina Zimmerman MD [facility] [place] [address] PCP - General Internal Medicine 04/20/21 Griselda Ha NP [address] [place] [address] [place] [address] Family Medicine 02/14/20 documented as of this encounter Additional Source Comments The information contained in this document represents components of the legal health record. It is not the complete legal health record.[facility]
--- OUTSIDE RECORDS SUMMARY | 2025-05-31 15:19 | XMS_ITS | Encounter Summary ---
Author Organization [facility] Address [facility] [address] [place] [address] Phone Care Team Providers Care Office Mover Name Role Phone Ez Hahalima Frost PLATE MAKER ZINC Unavailable [phone] Celestina Zimmerman MD Primary Care Provider [phone] Encounter Details Date Type Department Care Team (Late st Contact Info) Description 02/13/2022 Procedure Pass [facility], Ct Scan - [address] [address] Social History Tobacco Use Types Packs/Day Years [...] 7:00 PM EDT Loraine Hernandez RN * [facility] Suicide Severity Rating Scale (Screener/Recent Self-Report) Question Answer Date of Assessment Author 1. Wish to be (Past 1 Month) No 022 7:00 PM EDT Loraine Ross, JERED 2. Non-Specific Active Suici nestor Thoughts (Past 1 Month) No 02/13/2022 7:00 PM EDT Herbie Ross, JERED 6. Suicidal Behavior (Lifetime) No 7:00 PM EDT Loraine Ross, JERED documented as of this encounter Plan of Treatment Upcoming Encounters Date Type Department Care Team (Late st Contact Info) Description 01/20/2026 2:10 PM EDT Office Visit [facility] Department of Neurology [address] [facility] [address] [place] [address] Eh Shields MD [address] [place] [address] [email or web address] documented as of this encounter Visit Diagnoses [...] documented as of this encounter Care Teams Office Mover Relationship Specialty Start Date End Date Celestina Zimmerman MD [address] [place] [address] PCP - General Internal Medicine 04/20/21 Griselda Ha NP [address] [place] [address] [place] [address] Family Medicine 02/14/20 documented as of this encounter Additional Source Comments The information contained in this document represents components of the legal health record. It is not the complete legal health record.[facility]
--- OUTSIDE RECORDS SUMMARY | 2025-05-31 15:19 | XMS_ITS | Clinical Summary ---
Author Organization [facility] Address [address] [place] [address] [place] [address] Phone Care Team Providers Care Engagement Liaison Name Role Phone Griselda Ha OPHTHALMIC SURGEON Unavailable [phone] Celestina Zimmerman MD Primary Care Provider [phone] Allergies Active Allergy Reactions Criticality Noted Date [...] once daily 90 capsule 6 4 Active primidone (MYSOLINE) 50 MG tablet Take 0.5 tablets (25 mg total) by mouth nightly at bedtime. 15 tablet 5 5 Active hydroCHLOROthi azide (HYDRODIURIL) 25 MG tablet Take 25 mg by mouth daily. 25mg AM 75 MG PM 022 Discontin ued(No longer taking) mirtazapine (REMERON) 30 MG tablet Take 30 mg by mouth nightly at bedtime. 025 Discontin ued(No longer taking) Active Problems Problem Noted Date Diagnosed Date Anxiety 11/30/2021 Diverticular disease 11/30/2021 Overview (11/30/2021): colo 2016 Internal hemorrhoids 11/30/2021 Overview (11/30/2021): colo 2016 Irritable bowel syndrome 11/30/2021 Malignant neoplasm 11/30/2021 Osteopenia 11/30/2021 Overview (11/30/2021): Osteopenia 2016bone density 06/2012 nl Posttraumatic stress disorder 11/30/2021 Urticaria 11/30/2021 Hypertension 05/04/2019 Hypothyroidism 05/29/2009 Encounters Date Type Department Care Team Description 05/17/2025 1:00 PM EDT Office Visit [facility] Neurology [address] [place] [address], 7[address] Floor, [address] [place] [address] Salvatore Crocker MD, PhD Tremor (Primary Dx) 03/14/2025 Orders Only [facility] Rheumatology at [address] [address] Noelle Wooten MD Weakness (Primary Dx) 02/28/2025 3:30 PM EDT - 02/28/2025 11:59 PM EDT Hospital Encounter [facility] Pathology Outpatient Lab [address] [place] [address] Noelle Wooten MD Discharge Disposition: Home or Self Care 02/28/2025 2:40 PM EDT Office Visit [facility] Rheumatology at [address] [address] Noelle Wooten MD Weakness (Primary Dx) from Last 3 Months Immunizations Immunization Administration Dates Next Due [id number] FORMULATION 04/16/2011,05/02 INFLUENZA, SPLIT VIRUS, TRIV ALENT [...] Sign Reading Time Taken Comments Blood Pressure 121/70 05/17/2025 12:59 PM EDT Pulse 67 05/17/2025 12:59 PM EDT Temperature 37.1 C (98.7 F) 05/17/2025 12:59 PM EDT Respiratory Rate 20 09/28/2023 5:07 PM EST Oxygen Saturation 92% 05/17/2025 12:59 PM EDT Inhaled Oxygen Concentration - - Weight 81.6 kg (180 lb) 05/17/2025 12:59 PM EDT Height 159 cm (5' 2.6 ) 05/17/2025 12:59 PM EDT w/shoes Body Mass Index 32.3 05/17/2025 12:59 PM EDT Plan of Treatment Upcoming Encounters Date Type Department Care Team (Late st Contact Info) Description 01/20/2026 2:10 PM EDT Office Visit [facility] Department of [facility]rology [address] [facility] [address] [place] [address] Eh Shields MD [address] [place] [address] [email or web address] Health Maintenance Due Date Last Done Comments LIPID PANEL 1950 SMOKING Hx and SMOKELESS TOBACCO SCREENING 10/08/1964 HEPATITIS C SCREENING 10/08/1969 MAMMOGRAM 1991 COLOGUARD 10/08/1996 COLONOSCOPY 10/08/1996 COLORECTAL CANCER SCREENING 10/08/1996 FIT TEST 10/08/1996 FOBT 10/08/1996 SIGMOIDOSCOPY 10/08/1996 VIRTUAL COLONOSCOPY 10/08/1996 OSTEOPOROSIS SCREENING INITIAL (ONE-TIME) 10/08/2016 DEPRESSION SCREENING 03/06/2021 03/06/2020 POTASSIUM LEVEL 09/28/2024 09/28/2023, 08/0 03/2022, 03/01/2022, Additional history exists INFLUENZA VACCINE (#1) 2025 , 09/11/2023, 05/19/2022, Additional history exists COVID-19 VACCINE ( season) 2025 07/09/2023, 05/17/2022, 11/27/2021, Additional history exists TSH LEVEL 05/21/2025 05/21/2024, 09/28/2023 BLOOD PRESSURE 11/15/2025 05/17/2025 Adult Td,Tdap Booster 08/16/2026 08/16/2016 , 09/29/2012, [...] HIGH SENSITIVITY 3.1(H) 0.0 - 3.0 mg/L [facility] Comment: For cardiac risk assessment, reference range is <3.0mg/L. For inflammation assessment, reference range is <10.0mg/L. 02/28/2025 3:30 PM EDT 02/28/2025 7:22 PM EDT us Noelle Wooten MD LAB BLOOD ORDERABLES Final Resu lt Performing Organization Address [facility]/ZIP Co de Phone Number [address] [address] * (ABNORMAL) Aldolase (02/28/2025 3:30 PM EDT) ALDOLASE 8.2(H) <7.7 U/L [facility] DPT OF LAB MED AND PAT+ Comment: (NOTE) ADDITIONAL INFORMATION This test has been modified from the guest history clerk's instructions. Its performance characteristics were determined by [facility] in a manner consistent with CLIA requirements. This test has not been cleared or approved by the U.S. Food and Drug Administration. 02/28/2025 3:30 PM EDT 02/28/2025 7:21 PM EDT us Noelle Wooten MD LAB BLOOD ORDERABLES Final Resu lt Performing Organization Address [facility] Co de Phone Number [facility] DPT OF LAB MED AND PAT+ [address] [place] [address] * Sedimentation rate (ESR) (02/28/2025 3:30 PM EDT) ESR 15 0 - 20 mm/h [facility] 02/28/2025 3:30 PM EDT 02/28/2025 7:22 PM EDT us Noelle Wooten MD LAB BLOOD ORDERABLES Final Resu lt Performing Organization Address [facility] Co de Phone Number [address] [address] * CPK (creatine kinase) (02/28/2025 3:30 PM EDT) CREATINE KINASE 171 50 - 185 U/L [facility] 02/28/2025 3:30 PM EDT 02/28/2025 7:22 PM EDT us Noelle Wooten MD LAB BLOOD ORDERABLES Final Resu lt [facility] [address] [place] [address] * TSH with reflex (09/28/2023 7:22 PM EST) TSH 3.18 0.27 - 4.20 uIU/mL [facility] Blood 09/28/2023 7:22 PM EST 09/28/2023 7:24 PM EST us Eduardo Persaud PA-C LAB BLOOD ORDERABLES Final Re sult Performing Organization Address [facility]/ZIP Co de Phone Number [facility] [address] [place] [address] * (ABNORMAL) Basic metabolic panel (09/28/2023 7:22 PM EST) SODIUM 140 133 - 146 mmol/L [facility] CHLORIDE 101 96 - 108 mmol/L [facility] POTASSIUM 3.6 3.3 - 5.1 mmol/L [facility] CO2 27 21 - 35 mmol/L [facility] BUN 18 6 - 19 mg/dL [facility] CREATININE 1.10 0.5 - 1.5 mg/dL [facility] GLUCOSE 99 70 - 99 mg/dL [facility] CALCIUM 9.2 8.4 - 10.3 mg/dL [facility] EGFR 54(L) >59 mL/min/1.7 3m2 [facility] Comment:Estimated glomerular filtration rate calculated using the CKD-EPI refit equation. ANION GAP 16 10 - 20 mmol/L [facility] Blood 09/28/2023 7:22 PM EST 09/28/2023 7:24 PM EST us Eduardo Persaud PA-C LAB BLOOD ORDERABLES Final Re sult [facility] [address] [place], [place] [phone] from Last 3 Months or Most Recently Relevant to Health Maintenance Insurance MEDICARE PART A & B [employer] MEDEX SUPPLEMENT MEDICARE PART A & B BLUE CROSS MEDEX SUPPLEMENT MEDICARE PART A & B BLUE CROSS MEDEX SUPPLEMENT MEDICARE PART A & B [employer] CROSS MEDEX SUPPLEMENT MEDICARE PART A & B [employer] MEDEX SUPPLEMENT MEDICARE PART A & B [employer] CROSS MEDEX SUPPLEMENT MEDICARE PART A & B [employer] MEDEX SUPPLEMENT MEDICARE PART A & B [employer] MEDEX SUPPLEMENT MEDICARE PART A & B [employer] MEDEX SUPPLEMENT Advance Directives For more information, please contact: [phone] (9AM - 5PM [facility], Tuesday-Tuesday) Documents on File Type Date Recorded Patient Engineering Department Chair Expl anation Healthcare Proxy 02/14/2022 signed Healthcare Agents on File Name Relationship Healthcare Agent Relationship Communication Niels De Jesus Spouse .Primary Health Care Agent (Proxy form on file) Alba Martinez Daughter Alternate Health care Agent (Proxy form on file) Care Teams Engagement Liaison Relationship Specialty Start Date End Date Celestina Zimmerman MD [place] [address] PCP - General Internal Medicine 04/20/21 Griselda Ha NP [address] [place] [address] Dr [address] [place] [address] Family Medicine 02/14/20 Additional Source Comments The information contained in this document represents components of the legal health record. It is not the complete legal health record.[facility]
--- OUTSIDE RECORDS SUMMARY | 2025-05-31 15:19 | XMS_ITS | Clinical Summary ---
Author Organization [facility] [address] [facility] lding Address [address] [place] [address] Phone Care Team Providers Care Community Associate Name Role Phone Vonnie Cali DO Primary [...] 1 endometrial adenocarcinoma. Patient is referred to CONSTRUCTION SUPERVISOR/CARPENTER oncology at [facility]. She underwent total hysterectomy on 05/09/[address] Mora at [facility]. Nodes were negative. She did not require RT or Chemotherapy. Surgical History Surgery Date Site/Laterality Comments TONSILLECTOMY ADENOIDECTOMY, BILATERAL MYRINGOTOMY AND TUBES age 8 PROCEDURE: AR TONSILLECTOMY & ADENOIDECTOMY <AGE 13 ROBOTIC ASSISTED HYSTERECTOMY 05/09/2017 PROCEDURE: HISTORICAL ROBOTIC HYSTERECTOMY WITH OR WITHOUT BSO Medical History Medical History Date Comments Celiac disease 2007 DX:Celiac diseas e Other and unspecified noninf ectious gastroenteritis and colitis(558.9) 2003 DX:Other and unspec ified noninfectious gastroenteritis and colitis(558.9); COMMENT: viral syndrome PTSD (post-traumatic stress disorder) DX:PTSD (post-traumatic stress disorder); COMMENT: Abusive Endometrial cancer ([facility]/HCC V24, [facility]/HCC V28) 04/29/2017 DX:Endometrial cancer (HCC); COMMENT: Endometrial biopsy performed on April 26, 2017 showed grade 1 endometrial adenocarcinoma. Patient is referred to [facility]CTION [facility]PER[facility]OR[facility]PENTER oncology at [facility]. She underwent total hysterectomy on 05/09/[address] Mora at [facility]. Nodes were negative. She did not require [...] 3487 g (123 oz) F Vag-S pont [facility] Last Filed Vital Signs Vital Sign Reading [...] Last Done Comments Breast Cancer Screening 1950 Colorectal Cancer Screening: Colonoscopy 1950 Cholesterol Screening (Lipid Panel) 07/04/2022 Falls Risk Assessment 07/04/2022 Hepatitis C [...] MEDICARE [facility] Care Teams Community Associate Relationship Specialty Start Date End Date Vonnie Cali DO [address] [place] [address] PCP - General 04/29/17
--- OUTSIDE RECORDS SUMMARY | 2025-05-31 15:19 | XMS_ITS | Clinical Summary ---
Author Organization [facility] Address [address] [place] [address] Care Team Providers Care Cost Reduction Engineer Name Role Phone Unavailable Primary Care Provider Unavailabl e Medications Hospital, Clinic, or Other Facility Administered Medication Ordered Dose Route Frequency Start Date End Date Status lidocaine (XYLOCAINE) 4% (40 mg/mL) topical solution 180 mg 180 mg topical Once 05/08/2025 Active Encounters Date Type Department Care Team Description 05/08/2025 12:52 PM EDT - 05/08/2025 11:59 PM EDT Hospital Encounter [facility] Pre and Post Anesthesia Care Unit [address] [place] [address] Valerie Alexander PA Discharge Disposition: Home or Self Care (01) from Last 3 Months Social History Tobacco Use Types Packs/Day Years Used Date Smoking Tobacco: Never Assessed Comments Unknown Sex and Gender Information Value Date Recorded Sex Assigned at Female 01/31/2025 2:55 PM EDT Legal Sex Female 2:51 PM EDT Gender Identity Female 01/31/2025 2:55 PM EDT Sexual Orientation Not on file Plan of Treatment Health Maintenance Due Date Last Done Comments Cologuard 1950 Colon Cancer Screening 1950 Colonoscopy 1950 FOBT / Fit Test 1950 Sigmoidoscopy 1950 Mammogram 1991 Osteoporosis Screening 10/08/2001 Alcohol/Substance Use Screening 08/01/2024 Health Care Proxy Review 08/01/2024 COVID-19 Vaccine ( season) 2025 07/09/2023, 05/17/2022, 11/27/2021, Additional history exists Influenza Vaccine (#1) 2025 , 09/11/2023, 05/19/2022, Additional history exists DTaP,Tdap,and Td Vaccines (3 - Td or Tdap) 08/16/2026 08/16/2016, 09/29/2012, 08/01/2003 Pneumococcal Vaccine: 50+ Years Completed 05/19/2022, 03/27/2018, 03/22/2017, Additional history exists Zoster Vaccines Completed 11/18/2022, 08/02, 08/08/2015, Additional history exists RSV Vaccine (60+ years old and patients) Completed 07/26/2023 Hepatitis B Vaccines Aged Out No long er eligible based on patient's age to complete this topic Insurance MEDICARE [facility]
--- OUTSIDE RECORDS SUMMARY | 2025-05-31 15:19 | XMS_ITS | Encounter Summary ---
Author Organization [facility] Address [address] [place] [address] [address] [place] [address] Phone Care Team Providers Care Senior Solutions Consultant Name Role Phone Griselda Hae X RAY OPERATOR Unavailable Celestina Zimmerman MD Primary Care Provider [phone] Encounter Details Date Type Department Care Team (Late st Contact Info) Description 02/14/2022 Procedure Pass [facility], Ct Scan - [address] [address] Social History Tobacco Use Types Packs/Day Years [...] Description 01/20/2026 2:10 PM EDT Office Visit [facility] Department of Neurology [address] [facility] [address] [place], [place] [phone] Eh Shields MD [address] [place] [address] [email or web address] documented as of this encounter Visit Diagnoses [...] documented as of this encounter Care Teams Senior Solutions Consultant Relationship Specialty Start Date End Date Celestina Zimmerman MD [facility] [place] [address] PCP - General Internal Medicine 04/20/21 Griselda Ha NP [address] [place] [address] [place] [address] Family Medicine 02/14/20 documented as of this encounter Additional Source Comments The information contained in this document represents components of the legal health record. It is not the complete legal health record.[facility]
--- OUTSIDE RECORDS SUMMARY | 2025-05-31 15:19 | XMS_ITS | Patient Health Record ---
Author [facility] gabriel Otto Address [address] [facility] [place] [address] Care Team Providers Care Broodmare Foreman Name Role Phone Celestina Zimmerman MD Primary Care Provider Alba Mir Unavailable [phone] Allergies Allergen (clinical drug ingredient) Drug/Non Drug [...] 40 MG Oral; Duration: 90 Active Nystatin 480689 UNIT/ML Mouth/Throat; Duration: 10 Not-Taking hydrALAZINE HCl [...] Risk Notes Problem Chronic ulcer of foot (758519473) Non-pressure chronic ulcer of other part of left foot with fat layer exposed (L97.522) Active confirmed Problem Non-pressure ulcer of left lower extremity, limited to breakdown of skin (L97.921) Active confirmed Problem Acquired hammer toe of left foot (3819567852840 103) Hammer toe of left foot (M20.42) Active confirmed Problem Ulcer of left lower leg (disorder) (8118881193763 9103) Non-pressure ulcer of left lower extremity with fat layer exposed (L97.922) Active confirmed Problem Non-pressure ulcer of right lower extremity with fat layer exposed (L97.912) Active confirmed Vital Signs Blood pressure diastolic 55 mm Hg 09/28/2024 Height 5ft5in in 09/28/2024 Blood pressure systolic 120 mm Hg 09/28/2024 Weight 185 lbs 09/28/2024 BMI 30.78 kg/m2 09/28/2024 Encounters Encounter Location Date Provider Diagnosis [facility] [address] [place] [address] 09/28/2024 Alba Caal Ingrown nail L60.0 Assessments Encounter Date Diagnosis (ICD Code) Assessment Notes Treatment Notes Treatment Clinical Notes Section Notes 09/28/2024 Ingrown nail (ICD-10 - L60.0) Plan Of Treatment Pending Test Test Name Order Date [id number] SKIN/TISSUE 01/06/2023 Insurance Providers Payer Name Payer Address Payer Phone Subscriber Number Group Number Insured Name Patient Relationship to Insured Coverage Start Date Coverage End Date Medicare National [employer] [address] [place] [address] [id number] Sana Mireles Self - patient is the insured [employer] Blue Shield [address] [place] [address] [id number] Sana Mireles Self - patient is the insured Medical (General) History Medical History History ICD Code Anxiety Cancer Measles Mumps Chicken pox Headaches/Migraines High blood pressure Psychiatric disorder Celiac disease Surgical History Surgery Date(Month/Year) hysterectomy Hospitalization History Reason Date(Month/Year) C- CHF, respiratory issues 09/2022
--- OUTSIDE RECORDS SUMMARY | 2025-05-31 15:19 | XMS_ITS | Encounter Summary ---
Author Organization [facility] Address [address] [place] [address] Drive [address] [place] [address] Phone Care Team Providers Care Reeling Operator Name Role Phone Ez Hahalima Frost CANINE DEPUTY Unavailable [phone] Celestina Zimmerman MD Primary Care Provider [phone] Encounter Details Date Type Department Care Team (Late st Contact Info) Description 10/04/2023 Procedure Pass [facility] Endoscopy Admitting Dept Virtual Department [address] [place] [address] Social History Tobacco Use Types Packs/Day Years [...] 4:13 PM EDT Sexual Orientation Straight 11/28/2024 4 :13 PM EDT documented as of this encounter Plan of Treatment Upcoming Encounters Date Type Department Care Team (Late st Contact Info) Description 01/20/2026 2:10 PM EDT Office Visit [facility] Department of Neurology [address] [facility] [address] [place] [address] Eh Shields MD [address] [place] [address] [email or web address] documented as of this encounter Visit Diagnoses Not on filedocumented in this encounter Additional Health Concerns Infection Onset Date Last Indicated Resolved Time CoV-Risk 09/28/2023 09/28/2023 2023 1:22 AM EST Assessment Noted Time PHQ-2 Depression Total Score: 0 03/06/20 20 12:56 PM EDT documented as of this encounter Care Teams Reeling Operator Relationship Specialty Start Date End Date Celestina Zimmerman [place] [address] PCP - General Internal Medicine 04/20/21 Griselda Ha NP [address] [place] [address] Dr Me[address] [place] [address] Family Medicine 02/14/20 documented as of this encounter Additional Source Comments The information contained in this document represents components of the legal health record. It is not the complete legal health record.[facility]
--- OUTSIDE RECORDS SUMMARY | 2025-05-31 15:19 | XMS_ITS | Encounter Summary ---
Author Organization [facility] Address [address] [place] [address] Drive [address] [place] [address] Phone Care Team Providers Care Engineer Automated Equipment Name Role Phone Ez Hahalima Frost FLOW MATCH SOFA CUTTER Unavailable [phone] Celestina Zimmerman MD Primary Care Provider [phone] Encounter Details Date Type Department Care Team (Late st Contact Info) Description 09/28/2023 Procedure Pass [facility], Ct Scan - [address] [address] Social History Tobacco Use Types Packs/Day Years [...] 09/28/2023 3:13 PM Dipak Larsen RN * [place] Suicide Severity Rating Scale (Screener/Recent Self-Report) Question Answer Date of Assessment Author 1. Wish to be (Past 1 Month) No 024 3:13 PM EST Dipak Andrews RN 2. Non-Specific Active Suici nestor Thoughts (Past 1 Month) No 09/28/2023 3:13 PM EST Dipak Andrews RN documented as of this encounter Plan of Treatment Upcoming Encounters Date Type Department Care Team (Late st Contact Info) Description 01/20/2026 2:10 PM EDT Office Visit [facility] Department of Neurology [address] [address] Eh Shields MD [address] [place] [address] [email or web address] documented as of this encounter Visit Diagnoses Not on filedocumented in this encounter Additional Health Concerns Infection Onset Date Last Indicated Resolved Time CoV-Risk 09/28/2023 09/28/2023 2023 1:22 AM EST Assessment Noted Time PHQ-2 Depression Total Score: 0 03/06/20 20 12:56 PM EDT documented as of this encounter Care Teams Engineer Automated Equipment Relationship Specialty Start Date End Date Celestina Zimmerman MD [address] [place] [address] PCP - General Internal Medicine 04/20/21 Griselda Ha NP [address] [place] [address] [place] [address] Family Medicine 02/14/20 documented as of this encounter Additional Source Comments The information contained in this document represents components of the legal health record. It is not the complete legal health record.[facility]
--- OUTSIDE RECORDS SUMMARY | 2025-05-31 15:19 | XMS_ITS | Encounter Summary ---
Author Organization [facility] Address [address] [place] [address] Phone Care Team Providers Care Wastewater Process Engineer Name Role Phone Mikaela Dickens NUTRITION HELPER Primary Care Provider Griselda Ha NUTRITION HELPER Unavailable [phone] Celestina Zimmerman MD Primary Care Provider [phone] Encounter Details Date Type Department Care Team (Late st Contact Info) Description 02/21/2019 Procedure Pass [facility],Outside Imaging [address] [place], [place] [phone] Social History Tobacco Use Types Packs/Day Years [...] Description 01/20/2026 2:10 PM EDT Office Visit [facility] Department of Neurology [address] [facility] [address] [place] [address] Eh Shields MD [address] [place] [address] [email or web address] documented as of this encounter [...] documented as of this encounter Care Teams Wastewater Process Engineer Relationship Specialty Start Date End Date Mikaela Dickens NP [address] [place] [address] [place] [address] [email or web address] PCP - General Family Medicine 10/31/18 Celestina Zimmerman MD [facility] [place] [address] PCP - General Internal Medicine 04/20/21 Griselda Ha NP [address] [place] [address] [place] [address] Family Medicine 02/14/20 documented as of this encounter Additional Source Comments The information contained in this document represents components of the legal health record. It is not the complete legal health record.[facility]
--- OUTSIDE RECORDS SUMMARY | 2025-05-31 15:19 | XMS_ITS | Encounter Summary ---
Author Organization [facility] Address [address] [place] [address] [place] [address] Phone Care Team Providers Care Social Sciences Professor Name Role Phone Mikaela Dickens PLASTIC FABRICATOR Primary Care Provider Griselda Ha PLASTIC FABRICATOR Unavailable [phone] Celestina Zimmerman MD Primary Care Provider [phone] Reason for Referral * MRI/CAT Scan - Closed Specialty Diagnoses / Procedures Referred By Contac t Referred To Contact Procedures MRI Brain Outside (No Interpretation) System, Provider Not In, [facility] [address] [address] Referral ID Status Reason Start Date Expiration Date Visits Re quested Visits Authorized [id number] Closed 01/12/2019 01/12/2020 1 1 Encounter Details Date Type Department Care Team (Late st Contact Info) Description 01/12/2019 Ancillary Orders [facility],Outside Imaging [address] [place] [address] System, Provider Not In, [facility] [employer] [address] Social History Tobacco Use Types Packs/Day Years [...] Description 01/20/2026 2:10 PM EDT Office Visit [facility] Department of [facility]rology [address] [facility] [address] [place] [address] Eh Shields MD [address] [place] [address] [email or web address] documented as of this encounter Results * [...] documented as of this encounter Care Teams Social Sciences Professor Relationship Specialty Start Date End Date Mikaela Dickens NP [address] [place] [address] [place] [address] [email or web address] PCP - General Family Medicine 10/31/18 Celestina Zimmerman MD [address] [place] [address] PCP - General Internal Medicine 04/20/21 Griselda Ha NP [address] [place] [address] Dr Meade [address] [place] [address] Family Medicine 02/14/20 documented as of this encounter Additional Source Comments The information contained in this document represents components of the legal health record. It is not the complete legal health record.[facility]
--- OUTSIDE RECORDS SUMMARY | 2025-05-31 15:19 | XMS_ITS | Clinical Summary ---
Author Organization [facility] Address [address] [place] [address] Care Team Providers Care Automobiles Salesperson Name Role Phone Celestina Zimmerman MD Primary Care Provider [phone] Allergies Active Allergy Reactions Criticality Noted Date [...] colonoscopy 03/27/2025 Overview (03/27/2025): 2016; repeat 2025 ([facility] [place] colo 2005, repeat 2015 Chronic foot ulcer [...] 1 endometrial adenocarcinoma. Patient is referred to [facility] oncology at [facility]. She underwent total hysterectomy on 05/09/[address] Mora at [facility]. Nodes were negative. She did not require RT or Chemotherapy. Hypothyroidism 05/29/2009 Resolved Problems Problem Noted Date Diagnosed Date Resolved Date Urinary tract infectious disease 03/07/2022 04/29/2025 Encounters Date Type Department Care Team Description 03/27/2025 11:30 AM EDT Clinical Support [facility] [address] [place] [address] Erich Mckeon MD Otalgia of [...] 1950 Mammogram 1991 Colonoscopy 10/08/1996 RSV Vaccine 50 years and older and Patients (1 - Risk 50-74 years 1-dose series) 10/08/2001 Zoster (Shingles) Vaccine (1 of 2) 10/03/2015 [...] topic Insurance MEDICARE PART A & [place] [id number] Care Teams Automobiles Salesperson Relationship Specialty Start Date End Date Celestina Zimmerman MD [address] [place] [address] PCP - General 03/27/25
== END 2025-05-31 15:37 | disposition home or self-care (01) ==
LOC: HO.HUSH 14:53
PROVIDERS: PCP Internal Medicine; Visit Provider Urology
DX: N39.0 Urinary tract infection, site not specified (principal); R32 Unspecified urinary incontinence

== ENCOUNTER → 2025-05-31 14:51 | Outpatient (BNVA) | payer MEDICARE, SELFPAY | PROVIDERS: PCP Internal Medicine; Visit Provider Urology | DX: N32.81 Overactive bladder (principal); R32 Unspecified urinary incontinence | CPT/HCPCS: 51798; 81003; 99202 ==

== ENCOUNTER 2025-07-11 12:46 | Outpatient (AMB) | payer MEDICARE, SELFPAY ==
[2025-07-11 12:50] VITALS: BP 118/64; PULSE 69; RESP 17; TEMP 36.5; O2SAT 96
--- NOTE | 2025-07-11 12:50 | A.OFFVIS_ITS ---
Intake Vital Signs 07/11/25 12:50 Height 5 ft 4 in Weight 175 lb BMI 30.0 BP 118/64 Blood Pressure Location Lt brachial Position Sitting Respiration 17 Pulse 69 Pulse Source Pulse Oximeter Temp 97.7 F Temp Source Oral Pulse Oximetry (%) 96 Oxygen Delivery Method Room Air Intake Visit Reasons: SWV G0439 Intake Note: Pt is here today for AWV. Allergies gluten (GLUTEN) Allergy (Severe, Verified 07/11/25 12:52) ABD PAIN Sulfa (Sulfonamide Antibiotics) (SULFA(SULFONAMIDE ANTIBIOTICS)) Allergy (Severe, Verified 07/11/25 12:52) Rash mirtazapine Adverse Reaction (Severe, Verified 07/11/25 12:52) peripheral edema Medication List - Last Reconciled 07/11/25 by Celestina Zimmerman MD amlodipine 10 mg PO QAM 90 days [Cane As directed] compress.stocking,knee,reg,med apply in the am and remove in the pm esomeprazole magnesium 40 mg PO DAILY furosemide 40 mg PO DAILY gabapentin 300 mg PO DAILY gabapentin 100 mg PO TID hydralazine 25 mg PO .q am hydralazine 75 mg PO .4 pm labetalol 100 mg PO BID levothyroxine 100 mcg PO DAILY lorazepam 0.5 mg PO BID nebulizers As directed oxybutynin chloride ER mg PO DAILY sertraline 100 mg PO DAILY sodium fluoride-pot nitrate 1.1-5 % PO BEDTIME spironolactone 50 mg (2 x 25 mg) PO DAILY trazodone 100 mg PO BEDTIME PRN HPI SWV G0439 HPI Details Initiated the conversation about Advanced Directives. Advanced Directives help? patients prepare for current and future decisions about their medical treatment? and place of care. Discussed with patient that it is a process where a patients? current condition and prognosis are reviewed, their wishes for information? regarding their illness are elicited, and likely medical dilemmas are presented? and options discussed. The form can be amended as needed, reviewed yearly and? make changes as needed IPPE/AWV ? year old presents? for her ? Annual? Wellness Visit, initial visit.? Medical / Social History Reviewed? Past Medical History ?Yes? . ? [facility]? of Care / Care Team list updated ?Yes . ? Surgical/Hospitalization? History ?Yes . ? Current Medications? (including OTC and supplements) ?Yes . ? Family History ?Yes? . ? Tobacco? Control form ?Yes . ? AUDIT-C (Alcohol use) form? ?Yes . ? Illicit drug use in Social? History ?Yes . ? Current diagnosis of? depression? ?No ? Appropriate PHQ2/PHQ9? completed ?Yes . ? Data entered by ?Medical? Jazz Singer and reviewed by provider ? Fall Risk ? Fall? History? Have you had any falls with? injury in the past year? ?No . ? Have you had two or more? falls in the past year? ?No . ? Fall Risk Assessment: ?No? falls in the past year . ? HRA filled out by? the patient, reviewed by Provider and scanned. ? IPPE/AWV ? Balance? Romberg? ?Yes . ? Tandem? walk ?Yes . ? Walk and? Turn ?Yes . ? Rise from? sit to stand ?Yes . ?Vision? Corrective? lens ?Yes ? Vision? screen ? Up-to-date, has an appointment [] for vision? screening and glaucoma screening ?Hearing? Whisper? test ?pass .? Initiated the conversation about Advanced Directives. Advanced Directives help? patients prepare for current and future decisions about their medical treatment? and place of care. Discussed with patient that it is a process where a patients? current condition and prognosis are reviewed, their wishes for information? regarding their illness are elicited, and likely medical dilemmas are presented? and options discussed. The form can be amended as needed, reviewed yearly and? make changes as needed Written? Plan?Completed. See Patient? Documents. [facility] Medical History (Updated 07/11/25 @ 16:24 by Celestina Zimmerman MD) Spondylosis, cervical Headache Cervicalgia Chronic rhinitis Pulmonary nodule Pulmonary nodule Hearing loss Annual physical exam Dysphagia Vocal cord dysfunction Weight gain Edema Urinary incontinence Asthma History of concussion Shortness of breath Lower extremity edema Dyspnea Hypoxemia requiring supplemental oxygen Nonspecific interstitial pneumonitis Peripheral neuropathy Psychiatric disorder Mammogram normal Hyperlipemia Pulmonary hypertension DANIS on CPAP Pneumonitis Orthostatic hypotension dysautonomic syndrome Hypothyroid HTN (hypertension) Celiac disease Diastolic CHF Surgical History (Updated 07/11/25 @ 13:12 by Celestina Zimmerman MD) Hx of esophagogastroduodenoscopy History of total abdominal hysterectomy and bilateral salpingo-oophorectomy Endometrial adenocarcinoma History of colonoscopy Family History Father [place] cell cancer HTN (hypertension) CVD (cardiovascular disease) Mother Crohn disease Cancer Maternal Grandfather No problems noted. Maternal Grandmother No problems noted. Paternal Grandfather CVD (cardiovascular disease) Paternal Grandmother COPD (chronic obstructive pulmonary disease) Brother No problems noted. Sister No problems noted. Daughter No problems noted. Social History Household Members: Spouse Housing: House Are you a primary care coordination manager to a significant other at home: No Do you presently have visiting nurse or other home services: No Alcohol intake: current Alcohol intake frequency: holidays/special occasions only Comment: pt resting Patient Tobacco Use Status: Former Tobacco user Tobacco use type: Cigarette Years Smoked: 2 e-Cigarette/Vaping Use: Never Used Second Hand Smoke Exposure: No Advance Directives Date on File: 01/26/21 service: No Current occupational status: retired Cognitive needs: No Hearing needs: Yes Vision needs: Yes Questionnaire Medicare Wellness Checkup What [age] What gender do you identify with?: female During the past 4 weeks, how much have you been bothered by emotional problems such as feeling anxious, depressed, irritable, sad or downhearted, and blue?: slightly During the past 4 weeks, has your physical & emotional health limited your social activities with family, friends, neighbors, or groups?: quite a bit During the past 4 weeks, how much bodily pain have you generally had?: very mild pain During the past 4 weeks, was someone available to help you if you needed & wanted help?: yes, as much as I wanted During the past 4 weeks, what was the hardest physical activity you could do for at least 2 minutes?: moderate Can you get to places out of walking distance without help? (For eg., can you travel alone on buses, taxis or drive your car?): Yes Can you go shopping for groceries or clothes without someone's help?: Yes Can you prepare your own meals?: Yes Can you do your housework without help?: Yes Because of any health problems, do you need the help of another person with your personal care needs such as eating, bathing, dressing or getting around the house?: No Can you handle your own money without help?: Yes During the past 4 weeks, how would you rate your health in general?: very good During the past 4 weeks how have things been going for you?: pretty well Are you having difficulties driving your car?: no Do you always fasten your seat belt when you are in a car?: yes, usually During past 4 weeks, have you been bothered by the following: never: Falling or dizzy when standing up, Sexual problems?, Trouble eating well?, Teeth or denture problems? and Problems using the telephone? and seldom: Tiredness or fatigue? Have you fallen 2 or more times in the past year?: No Are you afraid of falling?: Yes Are you a smoker?: no During the past 4 weeks, how many drinks of wine, beer, or other alcoholic beverages did you have?: no alcohol at all Do you exercise for about 20 minutes 3 or more times a week?: yes, most of the time Have you been given information to help with the following?: no: Hazards in your house that might hurt you? and no: Keeping track of your medications? How often do you have trouble taking medicines the way you have been told to take them?: I always take medicine as prescribed How confident are you that you can control & manage most of your health problems?: very confident What is your race?: White Mini Mental State Exam (MMSE) Orientation What is the (year) (season) (date) (day) (month)?: year, season, date, day and month Where are we (state) (county) (town or city) (hospital) (floor)?: state, county, town or city, hospital/clinic and floor Registration Name of 3 unrelated objects clearly and slowly, then ask patient to repeat all 3 of them. (1st repeat determines score. Make sure they can repeat all three): object 1, object 2 and object 3 Attention & Calculation (CHOOSE ONE) Spell WORLD backwards (DLROW): 5 letters Recall Ask patient to repeat the 3 items from question #3.: object 1, object 2 and object 3 Language Show patient a wristwatch & ask what it is. Repeat for pencil.: watch and pencil Ask the patient to repeat the phrase 'No ifs, ands, or buts' after you.: correct Ask the patient to 'take a piece of paper with their right hand' 'fold paper in half' 'place paper on floor': take paper in right hand, fold paper in half and place paper on floor Print the sentence 'CLOSE YOUR EYES' on a piece. If patient actually closes eyes then score.: followed written direction Give patient a blank piece of paper & ask to write a sentence. Score if it contains a noun & verb.: sentence contains subject and verb Score Score: 29 PHQ-9 Over the last 2 weeks, how often have you been bothered by any of the following problems? 1. Little interest or pleasure in doing things: not at all 2. Feeling down, depressed, or hopeless: not at all 3. Trouble falling or staying asleep, or sleeping too much: not at all 4. Feeling tired or having little energy: not at all 5. Poor appetite or overeating: not at all 6. Feeling bad about yourself - or that you are a failure or have let yourself or your family down: not at all 7. Trouble concentrating on things, such as reading the newspaper or watching television: not at all 8. Moving or speaking so slowly that other people could have noticed. Or the opposite - being so fidgety or restless that you have been moving around a lot more than usual: not at all 9. Thoughts that you would be better off or of hurting yourself in some way: not at all Total score: 0 Depression Screening Interpretation: Negative Depression Screening Done: Yes Source: Developed by Drs. Judson Bravo, Breonna Fernandez, Jared Johnson and colleagues, with an educational shola from [employer]. Review of Systems Const All systems reviewed & are unremarkable except as noted in HPI and below Reports no additional complaints Eyes Reports no additional complaints ENT Reports no additional complaints Card Reports no additional complaints Resp Reports no additional complaints GI Reports no additional complaints Reports no additional complaints Musc Reports no additional complaints Physical Exam Vital Signs: Last Vital Signs Temp 97.7 F 07/11/25 12:50 Pulse 69 07/11/25 12:50 Resp 17 07/11/25 12:50 BP 118/64 07/11/25 12:50 Pulse Ox 96 07/11/25 12:50 Oxygen Delivery Method Room Air 07/11/25 12:50 BMI result Body Mass Index 30.0 Const General: no acute distress HEENT Head: Yes normal to inspection Ears: TM's normal bilaterally Eyes General: appearance normal, both eyes and all related structures Neck Neck: Yes no lymphadenopathy and Yes supple Resp Effort & Inspection: normal respiratory effort Auscultation: clear to auscultation bilaterally Cardio Rhythm: regular rhythm Heart sounds: S1 normal heart sound present and S2 normal heart sound present GI Inspection: Yes normal to inspection Palpation (GI): Soft to palpation Percussion: Yes normal to percussion Auscultation: normal bowel sounds Extrem General: Yes no clubbing, cyanosis or edema Assessment & Plan Assessment & Plan (1) Anxiety and depression: Comment: F/U WITH PSYCHIATRY/ therapist bi-weekly Code(s): F41.9 - Anxiety disorder, unspecified; F32.A - Depression, unspecified Plan: cont meds (2) Diastolic CHF: Comment: Echo 2020 nl EF Code(s): I50.30 - Unspecified diastolic (congestive) heart failure Qualifiers: Heart failure chronicity: acute on chronic Qualified Code(s): I50.33 - Acute on chronic diastolic (congestive) heart failure Plan: Continue current medications (3) Hyperlipemia: Code(s): E78.5 - Hyperlipidemia, unspecified Plan: Low-cholesterol diet increase physical activity discussed with the patient. She will return for fasting blood work (4) HTN (hypertension): Code(s): I10 - Essential (primary) hypertension Plan: Continue current medications (5) Dysphagia: Comment: EGD at [facility] 2020, negative bx, barium swallow: severe esophageal dysmotility, EGD 10/2024 status post LES and UES dilatation Code(s): R13.10 - Dysphagia, unspecified Plan: Continue PPI follow-up with GI (6) Colon cancer screening: Comment: Last scoped 2015, no polyps-Nguyen repeat in 10 years Code(s): Z12.11 - Encounter for screening for malignant neoplasm of colon Plan: Patient is due for repeat colonoscopy next year Quality Reporting (2019) Depression/Bipolar (159/160/161/177) PHQ-9: Total score: 0 Coding Level of Care Code Medicare Subsequent (G0439) Diagnoses Anxiety and depression F41.9; F32.A Diastolic CHF I50.33 Heart failure chronicity: acute on chronic Hyperlipemia E78.5 HTN (hypertension) I10 Dysphagia R13.10 Colon cancer screening Z12.11 CPT Codes Advance Care Planning - Advance Care Planning discussion: On file, no changes ([id number]) Advance Care Planning - Time spent: 1-15 minutes, on File ([id number]) Advance Care Planning Advance Care Planning discussion: On file, no changes Forms completed: Health Care Proxy Time spent: 1-15 minutes, on File
== END 2025-07-11 13:31 | disposition home or self-care (01) ==
LOC: HO.HMCC 12:47
PROVIDERS: PCP Internal Medicine; Visit Provider Internal Medicine
DX: F41.9 Anxiety disorder, unspecified (principal); F32.A Depression, unspecified; I50.33 Acute on chronic diastolic (congestive) heart failure; E78.5 Hyperlipidemia, unspecified; I10 Essential (primary) hypertension; R13.10 Dysphagia, unspecified; Z12.11 Encounter for screening for malignant neoplasm of colon; Z00.00 Encounter for general adult medical examination without abnormal findings

== ENCOUNTER 2025-07-18 13:14 | Outpatient (REF) | payer MEDICARE, SELFPAY ==
--- OUTSIDE RECORDS SUMMARY | 2025-06-21 07:45 | XMS_ITS ---
Author Organization [facility] Address [address] [place] [address] Care Team Providers Care Barrel Drainer Name Role Phone Celestina Zimmerman MD Primary Care Provider Alba Mir Unavailable [phone] REASON FOR VISIT Seen Sooner Encounters Encounter Location Date Provider Diagnosis [facility] [address] [place] [address] 06/21/2025 Alba Caal Plan Of Treatment Next Appt Details Provider Name:Olayinka Domingo, 09/10/2025 02:30:00 PM, [address] [facility], [place], [address], Progress Notes * Sana DE JESUS ADOB:1950 (74 yo F)Acc No.[id number]:06/21/2025 Progress Note Patient: Sana BARCENAS Provider: Link Caal DPM :1950 A ge:74 Y S ex:Female Date:06/21/2025 Address:[address], [id number] Pcp:Celestina Zimmerman MD Subjective: * Chief Complaints: [...] Date: 08/21/2024 Generated for Yamil carlton/Luc/Jonnathan on: 09/18/2024 05:19 PM EST
[2025-07-18 13:37] LABS: MANUAL DIFF FLAG NO
[2025-07-18 13:53] LABS: Hematocrit 40.8 % (37.0-47.0); Hemoglobin 13.3 g/dl (12.0-16.0); Imm Gran Abs Auto 0.02 X10*3/uL (0.00-0.03); Imm Gran Pct Auto 0.4 % (0.0-0.4); Lymphocytes Absolute Auto 0.9 X10*3/uL (1.2-4.9); Mean Corpuscular HGB Conc 32.6 g/dl (31.0-35.0); Mean Corpuscular Hemoglobin 29.4 pg (27.0-33.0); Mean Corpuscular Volume 90.1 fL (80.0-98.0); NRBC Abs Auto 0.000 X10*3/uL (0.0-0.012); NRBC Pct Auto 0.0 /100WBC (0.0-0.2); Platelet Count 262 X10*3/uL (160-400); Red Blood Count 4.53 X10*6/uL (4.20-5.50); White Blood Count 5.1 X10*3/uL (4.8-10.8)
[2025-07-18 14:32] LABS: Alanine Aminotransferase 40 U/L (0-31); Albumin Level 4.1 g/dL (3.5-5.0); Alkaline Phosphatase 116 U/L (39-117); Anion Gap 12 (12-20); Aspartate Amino Transferase 46 U/L (5-31); Blood Urea Nitrogen 13 mg/dL (9-16); Calcium 9.0 mg/dL (8.4-10.2); Carbon Dioxide 27 mmol/L (22-29); Chloride 104 mmol/L (96-108); Cholesterol 232 mg/dL (<200); Estimated Glomerular Filt Rate 54; HDL Cholesterol 45 mg/dL (>40); Potassium 3.7 mmol/L (3.3-5.1); Sodium 139 mmol/L (135-145); Total Protein 6.9 g/dL (6.5-8.0); Triglycerides 151 mg/dL (<150)
[2025-07-18 14:59] LABS: Folate 9.7 ng/mL (> or = 4.0); Vitamin B12 443 pg/mL (200-900)
--- OUTSIDE RECORDS SUMMARY | 2025-07-18 17:19 | XMS_ITS | Encounter Summary ---
Author Organization [facility] Address [address] [place] [address] [place] [address] Phone Care Team Providers Care Engine Pilot Name Role Phone Mikaela Dickens FLAT GRINDER OPERATOR Primary Care Provider Griselda Ha FLAT GRINDER OPERATOR Unavailable [phone] Celestina Zimmerman MD Primary Care Provider [phone] Reason for Referral * MRI/CAT Scan - Closed Specialty Diagnoses / Procedures Referred By Contac t Referred To Contact Procedures MRI Brain Outside (No Interpretation) System, Provider Not In, [facility] [address] [address] Referral ID Status Reason Start Date Expiration Date Visits Re quested Visits Authorized [id number] Closed 01/12/2019 01/12/2020 1 1 Encounter Details Date Type Department Care Team (Late st Contact Info) Description 01/12/2019 Ancillary Orders [facility],Outside Imaging [address] [place] [address] System, Provider Not In, [facility] [employer] [address] Social History Tobacco Use Types Packs/Day Years [...] Description 01/20/2026 2:10 PM EDT Office Visit [facility] [address] [facility] [address] [place] [address] Eh Shields MD [address] [place] [address] [email or web address] documented as of this encounter Results * [...] documented as of this encounter Care Teams Engine Pilot Relationship Specialty Start Date End Date Mikaela Dickens NP [address] [place] [address] [place] [address] [email or web address] PCP - General Family Medicine 10/31/18 Celestina Zimmerman MD [address] [place] [address] PCP - General Internal Medicine 04/20/21 Griselda Ha NP [address] [place] [address] Dr Meade [address] [place] [address] Family Medicine 02/14/20 documented as of this encounter Additional Source Comments The information contained in this document represents components of the legal health record. It is not the complete legal health record.[facility]
--- OUTSIDE RECORDS SUMMARY | 2025-07-18 17:19 | XMS_ITS | Encounter Summary ---
Author Organization [facility] Address [address] [place] [address] [place] [address] Phone Care Team Providers Care Access Clinician Name Role Phone Mikaela Dickens ROTARY SHEAR CUTTER Primary Care Provider Griselda Ha ROTARY SHEAR CUTTER Unavailable [phone] Celestina Zimmerman MD Primary Care Provider [phone] Reason for Referral * MRI/CAT Scan - Closed Specialty Diagnoses / Procedures Referred By Contac t Referred To Contact Procedures MRI Brain Outside (No Interpretation) System, Provider Not In, [facility] [address] [address] Referral ID Status Reason Start Date Expiration Date Visits Re quested Visits Authorized [id number] Closed 02/21/2019 02/21/2020 1 1 Encounter Details Date Type Department Care Team (Late st Contact Info) Description 02/21/2019 Ancillary Orders [facility],Outside Imaging [address] [place] [address] System, Provider Not In, [facility] [employer] [address] Social History Tobacco Use Types Packs/Day Years [...] [facility] [address] [facility] [address] [place] [address] Eh Shields MD [address] [place] [address] [email or web address] documented as of this encounter Results [...] documented as of this encounter Care Teams Access Clinician Relationship Specialty Start Date End Date Mikaela Dickens NP [address] [place] [address] [place] [address] [email or web address] PCP - General Family Medicine 10/31/18 Celestina Zimmerman MD [address] [place] [phone] PCP - General Internal Medicine 04/20/21 Griselda Ha NP [address] [place] [address] Dr Meade [address] [place] [address] Family Medicine 02/14/20 documented as of this encounter Additional Source Comments The information contained in this document represents components of the legal health record. It is not the complete legal health record.[facility]
--- OUTSIDE RECORDS SUMMARY | 2025-07-18 17:19 | XMS_ITS | Clinical Summary ---
Author Organization [facility] Address [address] [place] [address] Care Team Providers Care Diecast Machine Operator Name Role Phone Celestina Zimmerman MD Primary Care Provider [phone] Allergies Active Allergy Reactions Criticality Noted Date [...] colonoscopy 03/27/2025 Overview (03/27/2025): 2016; repeat 2025 ([facility]) colo 2005, repeat 2015 Chronic foot ulcer [...] 1 endometrial adenocarcinoma. Patient is referred to TERRITORY SUPERVISOR oncology at [facility]. She underwent total hysterectomy on 05/09/[address] Mora at [facility]. Nodes were negative. She did not require RT or Chemotherapy. Hypothyroidism 05/29/2009 Resolved Problems Problem Noted Date Diagnosed Date Resolved Date Urinary tract infectious disease 03/07/2022 04/29/2025 Immunizations Immunization Administration Dates Next Due Covid-19 [...] , 05/22/2019, Additional history exists COVID-19 Vaccine ( season) 2025 11/27/2021, 05/22/2021, 11/04/2020, Additional history exists DTaP/Tdap/Td Vaccines (3 - Td or Tdap) 08/16/2026 08/16/2016, 09/29/2012, 08/01/2003 Pneumococcal Vaccines 50+ Completed 2017, 03/22/2017, 05/09/2015 Hepatitis B Vaccines Aged Out No long er eligible based on patient's age to complete this topic Insurance MEDICARE PART A & [place] [id number] Care Teams Diecast Machine Operator Relationship Specialty Start Date End Date Celestina Zimmerman MD [address] [place] [address] PCP - General 03/27/25
--- OUTSIDE RECORDS SUMMARY | 2025-07-18 17:19 | XMS_ITS | Clinical Summary ---
Author Organization [facility] [address] [facility] [address] Address [address] [place] [address] Phone Care Team Providers Care Job Press Operator Name Role Phone Vonnie Cali DO Primary [...] 1 endometrial adenocarcinoma. Patient is referred to DIGITAL MEDIA ANALYST oncology at [facility]. She underwent total hysterectomy on 05/09/[address] Mora at [facility]. Nodes were negative. She did not require RT or Chemotherapy. Surgical History Surgery Date Site/Laterality Comments TONSILLECTOMY ADENOIDECTOMY, BILATERAL MYRINGOTOMY AND TUBES age 8 PROCEDURE: [place] TONSILLECTOMY & ADENOIDECTOMY <AGE 13 ROBOTIC ASSISTED HYSTERECTOMY 05/09/2017 PROCEDURE: HISTORICAL ROBOTIC HYSTERECTOMY WITH OR WITHOUT BSO Medical History Medical History Date Comments Celiac disease 2007 DX:Celiac diseas e Other and unspecified noninf ectious gastroenteritis and colitis(558.9) 2003 DX:Other and unspec ified noninfectious gastroenteritis and colitis(558.9); COMMENT: viral syndrome PTSD (post-traumatic stress disorder) DX:PTSD (post-traumatic stress disorder); COMMENT: Abusive Endometrial cancer ([facility]/HCC V24, [facility]/HCC V28) 04/29/2017 DX:Endometrial cancer (HCC); COMMENT: Endometrial biopsy performed on April 26, 2017 showed grade 1 endometrial adenocarcinoma. Patient is referred to DIGITAL MEDIA ANALYST oncology at [facility]. She underwent total hysterectomy on 05/09/[address] Mora at [facility]. Nodes were negative. She did not [...] 3487 g (123 oz) F Vag-S pont [facility] Last Filed Vital Signs Vital Sign Reading [...] age to complete this topic Insurance MEDICARE [facility] Care Teams Job Press Operator Relationship Specialty Start Date End Date Vonnie Cali DO [address] [place] [address] PCP - General 04/29/17
--- OUTSIDE RECORDS SUMMARY | 2025-07-18 17:19 | XMS_ITS | Clinical Summary ---
Author Organization [facility] Address [address] [id number] Care Team Providers Care Branch Director Name Role Phone Unavailable Primary Care Provider Unavailabl e Medications Hospital, Clinic, or Other Facility Administered Medication Ordered Dose Route Frequency Start Date End Date Status lidocaine (XYLOCAINE) 4% (40 mg/mL) topical solution 180 mg 180 mg topical Once 05/08/2025 Active Encounters Date Type Department Care Team Description 05/08/2025 12:52 PM EDT - 05/08/2025 11:59 PM EDT Hospital Encounter [facility] Pre and Post Anesthesia Care Unit [address] [place], [place] [id number] Valerie Alexander PA Discharge Disposition: Home or [...] Screening 08/01/2024 Health Care Proxy Review 08/01/2024 Influenza Vaccine (#1) 2025 , 09/11/2023, 05/19/2022, Additional history exists COVID-19 Vaccine ( season) 2025 07/09/2023, 05/17/2022, 11/27/2021, Additional history exists DTaP,Tdap,and Td Vaccines (3 - Td or Tdap) 08/16/2026 08/16/2016, 09/29/2012, 08/01/2003 Pneumococcal Vaccine: 50+ Years Completed 05/19/2022, 03/27/2018, 03/22/2017, Additional history exists Zoster Vaccines Completed 11/18/2022, 08/02, 08/08/2015, Additional history exists RSV Vaccine (60+ years old and patients) Completed 07/26/2023 Hepatitis B Vaccines Aged Out No long er eligible based on patient's age to complete this topic Insurance MEDICARE [facility]
--- OUTSIDE RECORDS SUMMARY | 2025-07-18 17:19 | XMS_ITS | Encounter Summary ---
Author Organization [facility] Address [address] [place] [address] [address] [place] [address] Phone Care Team Providers Care Bait Packer Name Role Phone Ez Hahalima Frost CERAMIC RESEARCH ENGINEER Unavailable [phone] Celestina Zimmerman MD Primary Care Provider [phone] Encounter Details Date Type Department Care Team (Late st Contact Info) Description 10/04/2023 Procedure Pass [facility] Endoscopy Admitting Dept Virtual Department [address] [place] [address] Social History Tobacco Use Types Packs/Day Years [...] Description 01/20/2026 2:10 PM EDT Office Visit [facility] at the [address] [address] Eh Shields MD [address] [place] [address] [email or web address] documented as of this encounter Visit Diagnoses Not on filedocumented in this encounter Additional Health Concerns Infection Onset Date Last Indicated Resolved Time CoV-Risk 09/28/2023 09/28/2023 2023 1:22 AM EST Assessment Noted Time PHQ-2 Depression Total Score: 0 03/06/20 20 12:56 PM EDT documented as of this encounter Care Teams Bait Packer Relationship Specialty Start Date End Date Celestina Zimmerman MD [address] [place] [address] PCP - General Internal Medicine 04/20/21 Griselda Ha NP [address] [place] [address] [place] [address] Family Medicine 02/14/20 documented as of this encounter Additional Source Comments The information contained in this document represents components of the legal health record. It is not the complete legal health record.[facility]
--- OUTSIDE RECORDS SUMMARY | 2025-07-18 17:19 | XMS_ITS | Encounter Summary ---
Author Organization [facility] Address [address] [place] [address] Phone Care Team Providers Care Semi Conductor Assembler Name Role Phone Mikaela Dickens DELIVERY ROUTE DRIVER Primary Care Provider Griselda Ha DELIVERY ROUTE DRIVER Unavailable [phone] Celestina Zimmerman MD Primary Care Provider [phone] Encounter Details Date Type Department Care Team (Late st Contact Info) Description 01/12/2019 Procedure Pass ,Outside Imaging [address] [place], [place] [id number] Social History Tobacco Use Types Packs/Day Years [...] [facility] at the [address] [address] Eh Shields MD [address] [place] [address] [email or web address] documented as of this encounter Visit [...] documented as of this encounter Care Teams Semi Conductor Assembler Relationship Specialty Start Date End Date Mikaela Dickens NP [address] [place] [address] [place] [address] [email or web address] PCP - General Family Medicine 10/31/18 Celestina Zimmerman MD [facility] [place] [address] PCP - General Internal Medicine 04/20/21 Griselda Ha NP [address] [place] [address] [place] [address] Family Medicine 02/14/20 documented as of this encounter Additional Source Comments The information contained in this document represents components of the legal health record. It is not the complete legal health record.[facility]
--- OUTSIDE RECORDS SUMMARY | 2025-07-18 17:19 | XMS_ITS | Patient Health Record ---
[facility] [place] Address [address] [place] [address] Care Team Providers Care Sheet Manager Name Role Phone Celestina Zimmerman MD Primary Care Provider Alba Mir Unavailable [phone] Olayinka Domingo Unavailable Allergies Allergen (clinical drug ingredient) Drug/Non Drug Allergy documented on EMR Reaction Allergy Type Onset Date Status Substance with sulfonamide structure and antibacterial mechanism of action (substance) Sulfa Antibiotics Unknown Drug Allergy Active Reason For Referral No Information Medications Medication SIG (Take, Route, Frequency, Duration) Notes Start Date End Date Status amLODIPine Besylate 10 MG Oral; Duration: 90 Active Levothyroxine Sodium 75 MCG TAKE 1 TABLET BY MOUTH ONCE DAILY Oral; Duration: 90 Active Labetalol HCl 100 MG TAKE 1 TABLET BY MO UTH TWICE DAILY Oral; Duration: 90 Active Gabapentin 100 MG TAKE 1 TABLET BY CHAY TH 4 TIMES DAILY Oral 3 times a day; Duration: 90 days Active Furosemide 40 MG TAKE 2 TABLETS BY MOUTH ONCE DAILY Oral; Duration: 90 Active Sertraline HCl 100 MG TAKE 2 TABLETS BY MOUTH ONCE DAILY Oral; Duration: 90 Active hydrALAZINE HCl 25 MG TAKE 1 TABLET BY M OUTH IN THE MORNING AND 3 TABLETS AT 6PM Oral; Duration: 90 Active LORazepam 1 MG Oral; Duration: 90 Active Doxycycline Monohydrate 100 MG 1 capsule Orally Once a day; Duration: 10 days 01/06/2023 Not-Taking Fluconazole 100 MG 1 tablet Orally sebas y; Duration: 5 days 01/15/2023 Not-Taking Ciclopirox 8 % 1 application thin film topically to nails Externally Once a day; Duration: 30 days Active Estradiol 0.1 MG/24HR APPLY 1 PATCH TOPICALLY ON MONDAYS AND THURSDAYS Transdermal; Duration: 28 Not-Taking Atorvastatin Calcium 10 MG TAKE 1 TABLET BY MOUTH ONCE DAILY Oral; Duration: 90 Not-Taking SUMAtriptan Succinate 100 MG TAKE 1 TABLET BY MOUTH EVERY 2 HOURS NEEDED FOR MIGRAINE, NOT TO EXCEED 200MG PER DAY Oral; Duration: 23 Not-Taking Mupirocin 2 % APPLY OINTMENT DAILY TO BIOPSY SITE ON RIGHT THIGH AND COVER WITH A BANDAID UNTIL HEALED External; Duration: 30 Not-Taking Ketoconazole 2 % APPLY CREAM TO FEET TWICE DAILY FOR 3 WEEKS, REPEAT NEEDED External; Duration: 30 Not-Taking traZODone HCl 50 MG TAKE 1 TABLET BY CHAY TH AT BEDTIME Oral; Duration: 90 Active Dicyclomine HCl 20 MG TAKE 1 TABLET BY M OUTH 4 TIMES DAILY Oral; Duration: 30 Not-Taking oxyBUTYnin Chloride 5 MG Oral; Duration: 90 Active Nystatin 454243 UNIT/ML Mouth/Throat; Duration: 10 Not-Taking Montelukast Sodium 10 MG Oral; Duration: 90 Active Lidocaine Viscous HCl 2 % Mouth/Throat; Duration: 3 Not-Taking Albuterol Sulfate (2.5 MG/3ML) 0.083% 3 ml as needed Inhalation every 6 hrs Active Clopidogrel Bisulfate 75 MG TAKE 1 TABLET BY MOUTH ONCE DAILY Oral; Duration: 90 Not-Taking Spironolactone 25 MG TAKE 2 TABLETS (50 MG) BY MOUTH DAILY Oral; Duration: 90 Active Omeprazole 40 MG Oral; Duration: 90 Active busPIRone HCl 15 MG TAKE 1 TABLET BY CHAY TH AT BEDTIME FOR 2 WEEKS AND THEN TAKE 1 TABLET TWICE DAILY Oral; Duration: 37 Active Immunizations Vaccine Route Administration Date Status Comme nts Influenza Unknown 06/19/2024 Administered Social History Tobacco Use: Social History Observation Description Date Details (start date - stop date) Never Smoker NA - NA Tobacco use other than smoking: Question Answer Notes Are you an other tobacco user? No Tobacco Control (Standard) Question Answer Notes Tobacco use: Nonsmoker Additional Findings: Tobacco non-user Current no nsmoker AUDIT-C (Standard) Question Answer Notes Did you have a drink containing alcohol in the p ast year? No Points 0 Interpretation Negative Problems Problem Type SNOMED Code ICD Code Onset Dates Problem Status W/U Status Risk Notes Problem Hammer toe (905506196) Hammer toe of left foot (M20.42) Active confirmed Problem Dry skin dermatitis (666843761) Nummular eczematous dermatitis (L30.0) Active confirmed Vital Signs Blood pressure diastolic 55 mm Hg 06/11/2025 Height 5ft 5in in 06/11/2025 Blood pressure systolic 120 mm Hg 06/11/2025 Weight 185 lbs 06/11/2025 BMI 30.78 kg/m2 06/11/2025 Procedures Procedure Date Ordered Date Performed Result Body Sit e [id number]-[id number] NAIL, 6 OR MORE 06/11/2025 N/A Encounters Encounter Location Date Provider Diagnosis [address] [address] 09/28/2024 Alba Caal Ingrown nail L60.[facility] [address] 06/11/2025 Olayinka Domingo Onychomycosis B35.1 ; Nummular eczematous dermatitis L30.0 ; Pain in right toe(s) M79.674 and Pain in left toe(s) M79.[address] [address] 06/10/2025 Alba Caal [address] [address] 06/13/2025 Alba Caal Assessments Encounter Date Diagnosis (ICD Code) Assessment Notes Treatment Notes Treatment Clinical Notes Section Notes 09/28/2024 Ingrown nail (ICD-10 - L60.0) 06/11/2025 Onychomycosis (ICD-10 - B35.1) 06/11/2025 Nummular eczematous dermatitis (ICD-10 - L30.0) 06/11/2025 Pain in right toe(s) (ICD-10 - M79.674) 06/11/2025 Pain in left toe(s) (ICD-10 - M79.675) Plan Of Treatment Pending Test Test Name Order Date [id number] NAIL, 6 OR MORE 06/11/2025 [id number] SKIN/TISSUE 01/06/2023 Next Appt Details Provider Name:Olayinka Domingo, 09/10/2025 02:30:00 PM, [address], [place], [address], Insurance Providers Payer Name Payer Address Payer Phone Subscriber Number Group Number Insured Name Patient Relationship to Insured Coverage Start Date Coverage End Date Medicare National [employer]t [employer] [address] [place] [address] [id number] Sana Mireles Self - patient [facility] the [facility] [address] [place] [address] [id number] Sana Mireles Self - patient is the insured Medical (General) History Medical History History ICD Code Anxiety Cancer Measles Mumps Chicken pox Headaches/Migraines High blood pressure Psychiatric disorder Celiac disease Surgical History Surgery Date(Month/Year) hysterectomy endo flip Hospitalization History Reason Date(Month/Year) [facility] [place], respiratory issues 09/2022
--- OUTSIDE RECORDS SUMMARY | 2025-07-18 17:19 | XMS_ITS | Clinical Summary ---
Author Organization [facility] Address [address] [facility] 7t [place] [address] Care Team Providers Care Playground Equipment Erector Name Role Phone Unavailable Primary Care Provider Unavailabl e Encounters Date Type Department Care Team Description 06/25/2025 12:45 PM EST Immunization [facility] [address] [place] [address] Immunization due from Last 3 Months Immunizations Immunization Administration Dates Next Due Influenza, trivalent, adjuvanted 06/19/2025 Moderna Covid-19 Vaccine 12+ 06/19/2025 Social History Tobacco Use Types Packs/Day Years Used Date Smoking Tobacco: Never Assessed Comments Unknown Sex and Gender Information Value Date Recorded Sex Assigned at Female 06/19/2025 2:17 PM EST Legal Sex Female 8:39 PM EDT Gender Identity Female 06/19/2025 2:17 PM EST Sexual Orientation Choose not to disclose 2024 2:17 PM EST Last Filed Vital Signs Vital Sign Reading Time Taken Comments Blood Pressure 117/61 06/11/2021 8:30 AM EST Pulse - - Temperature - - Respiratory Rate - - Oxygen Saturation - - Inhaled Oxygen Concentration - - Weight - - Height - - Body Mass Index - - Plan of Treatment Health Maintenance Due Date Last Done Comments CT Colonography 1951 Colonoscopy 1951 Colorectal Cancer Screening 1951 Depression Screening 1951 FIT DNA/Cologuard 1951 FIT 1951 FOBT 1951 Lipid Panel 1951 SDOH Screening 1951 Sigmoidoscopy 1951 Alcohol/Substance Use Screening 1963 Tobacco Screening 1963 Hepatitis C Screening 10/08/1969 Mammogram 1991 COVID-19 Vaccine ( season) 2025 06/19/2025, 07/09/2023, 05/17/2022, Additional history exists DTaP/Tdap/Td Vaccines (3 - Td or Tdap) 08/16/2026 08/16/2016, 09/29/2012, 08/01/2003 Pneumococcal Vaccine: 50+ Years Completed 05/19/2022, 03/27/2018, 03/22/2017, Additional history exists Zoster Vaccines Completed 11/18/2022, 08/02, 08/08/2015, Additional history exists RSV Patients and Patients Aged 60 years or older Completed 07/26/2023 Influenza Vaccine Completed 06/19/2025, , 09/11/2023, Additional history exists HIB Vaccines Aged Out [...] patient's age to complete this topic Meningococcal Vaccine Aged Out No ayaan mary eligible based on patient's age to complete this topic RSV under 20 months Aged Out No longe r eligible based on patient's age to complete this topic Rotavirus Vaccines Aged Out No longer eligible based on patient's age to complete this topic Insurance [place] [address] [place] [address] [facility] [employer]EX MEDICARE SUPPLEMENT
--- OUTSIDE RECORDS SUMMARY | 2025-07-18 17:19 | XMS_ITS | Encounter Summary ---
Author Organization [facility] Address [address] [place] [address] Phone Care Team Providers Care Drawbench Operator Helper Name Role Phone Mikaela Dickens LATH TIER Primary Care Provider Griselda Ha LATH TIER Unavailable [phone] Celestina Zimmerman MD Primary Care Provider [phone] Encounter Details Date Type Department Care Team (Late st Contact Info) Description 02/21/2019 Procedure Pass [facility],Outside Imaging [address] [place], [place] [phone] Social History Tobacco Use Types Packs/Day Years [...] [facility] at the [address] [address] Eh Shields MD [address] [place] [address] [email or web address] documented as of this encounter [...] documented as of this encounter Care Teams Drawbench Operator Helper Relationship Specialty Start Date End Date Mikaela Dickens NP [address] [place] [address] [place] [address] [email or web address] PCP - General Family Medicine 10/31/18 Celestina Zimmerman MD [facility] [place] [address] PCP - General Internal Medicine 04/20/21 Griselda Ha NP [address] [place] [address] [place] [address] Family Medicine 02/14/20 documented as of this encounter Additional Source Comments The information contained in this document represents components of the legal health record. It is not the complete legal health record.[facility]
--- OUTSIDE RECORDS SUMMARY | 2025-07-18 17:19 | XMS_ITS | Encounter Summary ---
Author Organization [facility] Address [facility] [email or web address] [place] [address] Phone Care Team Providers Care Electron Microprobe Operator Name Role Phone Ez Hahalima Frost DINING SERVER Unavailable [phone] Celestina Zimmerman MD Primary Care Provider [phone] Encounter Details Date Type Department Care Team (Late st Contact Info) Description 02/13/2022 Procedure Pass [facility], Ct Scan - [address] [address] Social History Tobacco Use Types Packs/Day Years [...] 7:00 PM EDT Loraine Hernandez RN * [place] Suicide Severity Rating Scale (Screener/Recent Self-Report) Question [...] Paras and [facility] at the [facility] [address] [facility] [address] [place] [address] Eh Shields MD [address] [place] [address] [email or web address] documented as of this encounter [...] documented as of this encounter Care Teams Electron Microprobe Operator Relationship Specialty Start Date End Date Celestina Zimmerman MD [address] [place] [address] PCP - General Internal Medicine 04/20/21 Griselda Ha NP [address] [place] [address] [place] [address] Family Medicine 02/14/20 documented as of this encounter Additional Source Comments The information contained in this document represents components of the legal health record. It is not the complete legal health record.[facility]
--- OUTSIDE RECORDS SUMMARY | 2025-07-18 17:19 | XMS_ITS | Encounter Summary ---
Author Organization [facility] Address [address] [place] [address] [place] [address] Phone Care Team Providers Care Practice Lead Name Role Phone Ez Hahalima Frost EXHIBITION CARVER Unavailable Celestina Zimmerman MD Primary Care Provider Encounter Details Date Type Department Care Team (Late st Contact Info) Description 02/14/2022 Procedure Pass [facility], Ct Scan - [address] [address] Social History Tobacco Use Types Packs/Day Years [...] [facility] at the [address] [place] [address] Eh Shields MD [address] [place] [address] [email or web address] documented as of this encounter Visit [...] documented as of this encounter Care Teams Practice Lead Relationship Specialty Start Date End Date Celestina Zimmerman MD [facility] [place] [address] PCP - General Internal Medicine 04/20/21 Griselda Ha NP [address] [place] [address] Dr Meade [address] [place] [address] Family Medicine 02/14/20 documented as of this encounter Additional Source Comments The information contained in this document represents components of the legal health record. It is not the complete legal health record.[facility]
--- OUTSIDE RECORDS SUMMARY | 2025-07-18 17:19 | XMS_ITS | Encounter Summary ---
Author Organization [facility] Address [address] [place] [address] Drive [address] [place] [address] Phone Care Team Providers Care Bladder Changer Name Role Phone Ez Hahalima Frost BUSINESS ARCHITECT Unavailable [phone] Celestina Zimmerman MD Primary Care Provider [phone] Encounter Details Date Type Department Care Team (Late st Contact Info) Description 09/28/2023 Procedure Pass [facility], Ct Scan - [address] [address] Social History Tobacco Use Types Packs/Day Years [...] 09/28/2023 3:13 PM Dipak Larsen RN * [place] Suicide Severity Rating Scale (Screener/Recent Self-Report) [...] [facility] at the [address] [address] Eh Shields MD [address] [place] [address] [email or web address] documented as of this encounter Visit Diagnoses Not on filedocumented in this encounter Additional Health Concerns Infection Onset Date Last Indicated Resolved Time CoV-Risk 09/28/2023 09/28/2023 2023 1:22 AM EST Assessment Noted Time PHQ-2 Depression Total Score: 0 03/06/20 20 12:56 PM EDT documented as of this encounter Care Teams Bladder Changer Relationship Specialty Start Date End Date Celestina Zimmerman MD [address] [place] [address] PCP - General Internal Medicine 04/20/21 Griselda Ha NP [address] [place] [address] [place] [address] Family Medicine 02/14/20 documented as of this encounter Additional Source Comments The information contained in this document represents components of the legal health record. It is not the complete legal health record.[facility]
--- OUTSIDE RECORDS SUMMARY | 2025-07-18 17:19 | XMS_ITS | Clinical Summary ---
Author Organization [facility] Address [address] [place] [address] [place] [address] Phone Care Team Providers Care Locker Room Attendant Name Role Phone Griselda Ha LEAD SUSTAINABILITY SPECIALIST Unavailable Celestina Zimmerman MD Primary Care Provider [phone] Allergies Active Allergy Reactions Criticality Noted Date Comments Gluten 11/30/2021 Sulfa (Sulfonamide Antibiotics) Unknown Medium 12/31 Medications labetalol (TRANDATE) 100 MG tablet Take 100 mg by mouth 2 (two) times a day. Active amLODIPine (NORVASC) 10 MG tablet Take 10 mg by mouth daily. Active LORazepam (ATIVAN) 1 MG tablet Take 1 mg by mouth every 8 (eight) hours as needed for anxiety. 03/11/20 Active furosemide (LASIX) 40 MG tablet Take 40 mg by mouth daily. Active hydrALAZINE (APRESOLINE) 25 MG tablet Take 25 mg by mouth 2 (two) times a day. 25mg in AM, 75mg in PM 03/11/20 Active oxybutynin (DITROPAN) 5 MG tablet Take 5 mg by mouth nightly at bedtime. 11/07/19 22 Active traZODone (DESYREL) 50 MG tablet Take 50 mg by mouth nightly at bedtime. at bedtime. 11/06/19 22 Active busPIRone (BUSPAR) 15 MG tablet Take 15 mg by mouth 2 (two) times a day. 11/06/19 22 Active montelukast (SINGULAIR) 10 mg tablet Take 10 mg by mouth daily as needed. 11/07/19 22 Active albuterol 90 mcg/actuation inhaler Inhale 2 puffs into the lungs every 6 (six) hours as needed for wheezing. Active albuterol 2.5 mg/0.5 mL nebulizer solution Take 2.5 mg by nebulization as needed for wheezing. Active sertraline (ZOLOFT) 100 MG tablet Take 100 mg by mouth daily. 03/11/20 22 Active levothyroxine (SYNTHROID, LEVOTHROID) 75 MCG tablet 10/14/19 23 Active omeprazole (PRILOSEC) 40 MG capsule Take 40 mg by mouth 2 (two) times a day. 08/26/19 23 Active rOPINIRole (REQUIP) 0.5 MG tablet 08/05/19 23 Active spironolactone (ALDACTONE) 25 MG tablet Take 25 mg by mouth daily. Active gabapentin (NEURONTIN) 300 MG capsule Take 1-2 capsules by mouth nightly at bedtime. 10/06/19 24 Active gabapentin (NEURONTIN) 100 MG capsuleIndicati ons:Tremor take 3 capsules by mouth once daily 90 capsule 6 05/25/20 24 Active primidone (MYSOLINE) 50 MG tablet Take 0.5 tablets (25 mg total) by mouth nightly at bedtime. 15 tablet 5 05/17/20 25 Active atorvastatin (LIPITOR) 10 MG tablet TAKE 1 TABLET BY MOUTH ONCE DAILY Oral; Duration: 90 Active clopidogrel (PLAVIX) 75 mg tablet TAKE 1 TABLET BY MOUTH ONCE DAILY Oral; Duration: 90 Active dicyclomine (BENTYL) 20 mg tablet TAKE 1 TABLET BY MOUTH 4 TIMES DAILY Oral for 30 Active doxycycline monohydrate (MONODOX) 50 MG capsule TAKE 1 CAPSULE BY MOUTH ONCE DAILY WITH FOOD. MAY CAUSE SUN SENSITIVITY 04/04/20 25 Active esomeprazole (NEXIUM) 20 mg packet Take 20 mg by mouth. Active esomeprazole (NEXIUM) 40 MG capsule Take 1 capsule by mouth every morning. 03/13/20 25 Active estradioL (VIVELLE-DOT) 0.1 mg/24 hr APPLY 1 PATCH TOPICALLY ON MONDAYS AND THURSDAYS Transdermal for 28 Active famotidine (PEPCID) 20 MG tablet Take 20 mg by mouth. 05/30/20 Active fluconazole (DIFLUCAN) 200 MG tablet 05/14/20 Active ketoconazole 2 % cream APPLY CREAM TO FEET TWICE DAILY FOR 3 WEEKS, REPEAT NEEDED External for 30 Active lidocaine 2 % Soln Mouth/Throat for 3 Active lidocaine (XYLOCAINE) 4 % topical solution topical solution Apply 180 mg topically. 05/08/20 25 Active metroNIDAZOLE (METROCREAM) 0.75 % cream 06/11/20 Active mupirocin (BACTROBAN) 2 % ointment APPLY OINTMENT DAILY TO BIOPSY SITE ON RIGHT THIGH AND COVER WITH A BANDAID UNTIL HEALED External for 30 Active nystatin (MYCOSTATIN) 100,000 units/mL suspension RINSE WITH 5 ML FOR 2 MINUTES THEN SPIT OUT 2 TO 4 TIMES PER DAY Active predniSONE (DELTASONE) 20 MG tablet Take 40 mg by mouth daily. 12/08/19 25 Active SUMAtriptan (IMITREX) 100 MG tablet TAKE 1 TABLET BY MOUTH EVERY 2 HOURS NEEDED FOR MIGRAINE, NOT TO EXCEED 200MG PER DAY Oral for 23 Active hydroCHLOROthia zide (HYDRODIURIL) 25 MG tablet Take 25 mg by mouth daily. 25mg AM 75 MG PM 022 Discontinu ed(No longer taking) amoxicillin-cla vulanate (AUGMENTIN) 875-125 mg per tablet Take 1 tablet (875 mg of amoxicillin total) by mouth 2 (two) times a day for 7 days. 14 tablet 06/12/20 25 025 Active Problems Problem Noted Date Diagnosed Date Anxiety 11/30/2021 Diverticular disease 11/30/2021 Overview (11/30/2021): colo 2016 Internal hemorrhoids 11/30/2021 Overview (11/30/2021): colo 2016 Irritable bowel syndrome 11/30/2021 Malignant neoplasm 11/30/2021 Osteopenia 11/30/2021 Overview (11/30/2021): Osteopenia 2016bone density 06/2012 nl Posttraumatic stress disorder 11/30/2021 Urticaria 11/30/2021 Hypertension 05/04/2019 Hypothyroidism 05/29/2009 Encounters Date Type Department Care Team Description 06/12/2025 6:00 PM EST Office Visit [facility] [place] [address] [place] [address] Eh Morse PA-C Acute maxillary sinusitis, recurrence not specified (Primary Dx) 05/17/2025 1:00 PM EDT Office Visit [facility] Neurology [address], 7th [address], [address] [place] [address] Salvatore Crocker MD, PhD Tremor (Primary Dx) from Last 3 Months Immunizations Immunization Administration Dates Next Due [id number] FORMULATION 04/16/2011,05/02 INFLUENZA, SPLIT VIRUS, TRIV ALENT [...] Sign Reading Time Taken Comments Blood Pressure 117/56 06/12/2025 5:17 PM EST Pulse 59 06/12/2025 5:17 PM EST Temperature 36.6 C (97.8 F) 06/12/2025 5:17 PM EST Respiratory Rate 16 06/12/2025 5:17 PM EST Oxygen Saturation 97% 06/12/2025 5:17 PM EST Inhaled Oxygen Concentration - - Weight 79.4 kg (175 lb) 06/12/2025 5:17 PM EST Height 159 cm (5' 2.6 ) 06/12/2025 5:17 PM EST Body Mass Index 31.4 06/12/2025 5:17 PM EST Plan of Treatment Upcoming Encounters Date Type Department Care Team (Late st Contact Info) Description 01/20/2026 2:10 PM EDT Office Visit [facility] [address] [address] Eh Shields MD [address] [place] [address] [email or web address] Health Maintenance Due Date Last Done Comments [...] TSH LEVEL 05/21/2025 05/21/2024, 09/28/2023 BLOOD PRESSURE 12/10/2025 06/12/2025 Adult Td,Tdap Booster 08/16/2026 08/16/2016 , 09/29/2012, [...] Procedure Name Priority Date/Time Associated Diagnosis Comments TSH WITH REFLEX STAT 09/28/2023 7:22 PM EST BASIC METABOLIC PANEL (BMP) STAT 09/28/2023 7:22 PM EST from Last 3 Months or Most Recently Relevant to Health Maintenance Results * TSH with reflex (09/28/2023 7:22 PM EST) TSH 3.18 0.27 - 4.20 uIU/mL [facility] Blood 09/28/2023 7:22 PM EST 09/28/2023 7:24 PM EST Eduardo Persaud PA-C LAB BLOOD BKR ORDERABLES Soha l Result Performing Organization Address [facility]/ZIP Co de Phone Number [address] [address] * (ABNORMAL) Basic metabolic panel (09/28/2023 7:22 PM EST) SODIUM 140 133 - 146 mmol/L [facility] CHLORIDE 101 96 - 108 mmol/L [facility] POTASSIUM 3.6 3.3 - 5.1 mmol/L [facility] CO2 27 21 - 35 mmol/L [facility] BUN 18 6 - 19 mg/dL [facility] CREATININE 1.10 0.5 - 1.5 mg/dL [facility] GLUCOSE 99 70 - 99 mg/dL [facility] CALCIUM 9.2 8.4 - 10.3 mg/dL [facility] EGFR 54(L) >59 mL/min/1.7 3m2 [facility] Comment:Estimated glomerular filtration rate calculated using the CKD-EPI refit equation. ANION GAP 16 10 - 20 mmol/L [facility] Blood 09/28/2023 7:22 PM EST 09/28/2023 7:24 PM EST Eduardo Persaud PA-C LAB BLOOD BKR ORDERABLES Soha l Result [address] [address] from Last 3 Months or Most Recently Relevant to Health Maintenance Insurance MEDICARE PART A & B [employer] MEDEX SUPPLEMENT MEDICARE PART A & B [employer] MEDEX SUPPLEMENT MEDICARE PART A & B [employer] MEDEX SUPPLEMENT MEDICARE PART A & B [employer] MEDEX SUPPLEMENT MEDICARE PART A & B [facility] MEDEX SUPPLEMENT MEDICARE PART A & B [place] [employer] MEDEX SUPPLEMENT MEDICARE PART A & B [place] [employer] CROSS MEDEX SUPPLEMENT MEDICARE PART A & B [place] CK[employer] CROSS MEDEX SUPPLEMENT MEDICARE PART A & B [place] CK[employer] CROSS MEDEX SUPPLEMENT Advance Directives For more information, please contact: [phone] (9AM - 5PM [facility], Tuesday-Tuesday) Documents on File Type Date Recorded Patient Journalism Intern Expl anatced Healthcare Proxy 02/14/2022 signed Healthcare Agents on File Name Relationship Healthcare Agent Relationship Communication Niels De Jesus Spouse .Primary Health Care Agent (Proxy form on file) Alba Martinez Daughter Alternate Health care Agent (Proxy form on file) Care Teams Locker Room Attendant Relationship Specialty Start Date End Date Celestina Zimmerman MD [facility] [place] [address] PCP - General Internal Medicine 04/20/21 Griselda Ha NP [address] [place] [address] Dr Meade [address] [place] [address] Family Medicine 02/14/20 Additional Source Comments The information contained in this document represents components of the legal health record. It is not the complete legal health record.[facility]
== END 2025-07-18 13:15 | disposition home or self-care (01) ==
LOC: HO.LAB 13:14
PROVIDERS: PCP Internal Medicine; Visit Provider Internal Medicine
DX: Z00.00 Encounter for general adult medical examination without abnormal findings (principal); E03.9 Hypothyroidism, unspecified; J44.9 Chronic obstructive pulmonary disease, unspecified; E78.5 Hyperlipidemia, unspecified; Z13.1 Encounter for screening for diabetes mellitus
CPT/HCPCS: 36415; 80053; 80061; 82607; 82746; 83036; 84443; 85025

== ENCOUNTER 2025-07-29 15:36 | Outpatient (AMB) | payer MEDICARE, SELFPAY ==
--- OUTSIDE RECORDS SUMMARY | 2025-06-21 07:45 | XMS_ITS ---
Author Organization [facility] Address [address] [place] [address] Care Team Providers Care Fancy Sewer Name Role Phone Celestina Zimmerman MD Primary Care Provider Alba Mir Unavailable [phone] REASON FOR VISIT Seen Sooner Encounters Encounter Location Date Provider Diagnosis [facility] [address] [place] [address] 06/21/2025 Alba Caal Plan Of Treatment Next Appt Details Provider Name:Olayinka Domingo, 09/10/2025 02:30:00 PM, [address] [facility], [place], [address], Progress Notes * Sana DE JESUS ADOB:1950 (74 yo F)Acc No.[id number]:06/21/2025 Progress Note Patient: Sana BARCENAS Provider: Link Caal DPM :1950 A ge:74 Y S ex:Female Date:06/21/2025 Address:[address], [id number] Pcp:Celestina Zimmerman MD Subjective: * Chief Complaints: * 1 . Seen Sooner. * Medical History: Objective: * Vitals: Assessment: Plan: * Treatment: * Images: * The named appointment provid er may or may not be the originator of this progress note, and it is not deemed complete until electronically signed by the appointment provider. Sign off status: Pending * Provider: Link Caal DPM Date: 08/21/2024 Generated for Yamil carlton/Luc/Jonnathan on: 05:36 PM EST
--- NOTE | 2025-07-29 15:43 | AM.OFFWIN_ITS ---
Intake Vital Signs 07/29/25 15:44 Height 5 ft 4 in Weight 181 lb 2 oz BMI 31.1 BP 124/78 Blood Pressure Location Lt brachial Position Sitting Respiration 16 Pulse 58 Pulse Source Pulse Oximeter Temp 97.6 F Temp Source Oral Pulse Oximetry (%) 94 Oxygen Delivery Method Room Air Intake Visit Reasons: EP-yeast infection, and swallowing difficulty Intake Note: Pt is here today for difficulty swallowing. pt states started few days ago. Patient Tobacco Use Status: Former Tobacco user Allergies gluten (GLUTEN) Allergy (Severe, Verified 07/29/25 15:54) ABD PAIN Sulfa (Sulfonamide Antibiotics) (SULFA(SULFONAMIDE ANTIBIOTICS)) Allergy (Severe, Verified 07/29/25 15:54) Rash mirtazapine Adverse Reaction (Severe, Verified 07/29/25 15:54) peripheral edema Do you need a note to return to daycare/school/sports/work: No HPI HPI Comments History of Present Illness Details 74-year-old female presents to the walk- in clinic with complaints of recurrent oral thrush. Patient reports she was recently prescribed Diflucan (fluconazole) 200 mg TID for 7 days by her dentist and is currently on day 3 of therapy, but feels the medication is not effective. She reports significant oral pain making it difficult to eat or drink. She also endorses painful swallowing and describes a burning sensation in the mid- epigastric region, raising concern for possible esophageal involvement. Denies nausea or vomiting. Denies fevers or chills. [facility] Medical History (Updated 07/29/25 @ 17:30 by Karen Man NP) Oral thrush Spondylosis, cervical Headache Cervicalgia Chronic rhinitis Pulmonary nodule Pulmonary nodule Hearing loss Annual physical exam Dysphagia Vocal cord dysfunction Weight gain Edema Urinary incontinence Asthma History of concussion Shortness of breath Lower extremity edema Dyspnea Hypoxemia requiring supplemental oxygen Nonspecific interstitial pneumonitis Peripheral neuropathy Psychiatric disorder Mammogram normal Hyperlipemia Pulmonary hypertension DANIS on CPAP Pneumonitis Orthostatic hypotension dysautonomic syndrome Hypothyroid HTN (hypertension) Celiac disease Diastolic CHF Surgical History (Updated 07/11/25 @ 13:12 by Celestina Zimmerman MD) Hx of esophagogastroduodenoscopy History of total abdominal hysterectomy and bilateral salpingo-oophorectomy Endometrial adenocarcinoma History of colonoscopy Family History Father [place] cell cancer HTN (hypertension) CVD (cardiovascular disease) Mother Crohn disease Cancer Maternal Grandfather No problems noted. Maternal Grandmother No problems noted. Paternal Grandfather CVD (cardiovascular disease) Paternal Grandmother COPD (chronic obstructive pulmonary disease) Brother No problems noted. Sister No problems noted. Daughter No problems noted. Social History Household Members: Spouse Housing: House Are you a primary pet care associate to a significant other at home: No Do you presently have visiting nurse or other home services: No Alcohol intake: current Alcohol intake frequency: holidays/special occasions only Comment: pt resting Patient Tobacco Use Status: Former Tobacco user Tobacco use type: Cigarette Years Smoked: 2 e-Cigarette/Vaping Use: Never Used Second Hand Smoke Exposure: No Advance Directives Date on File: 01/26/21 service: No Current occupational status: retired Cognitive needs: No Hearing needs: Yes Vision needs: Yes Review of Systems Const All systems reviewed & are unremarkable except as noted in HPI and below Physical Exam Vital Signs: Last Vital Signs Temp 97.6 F 07/29/25 15:44 Pulse 58 07/29/25 15:44 Resp 16 07/29/25 15:44 BP 124/78 07/29/25 15:44 Pulse Ox 94 07/29/25 15:44 Oxygen Delivery Method Room Air 07/29/25 15:44 BMI result Body Mass Index 31.1 Const General: no acute distress Nutritional Appearance: obese Orientation/consciousness: patient oriented x3 HEENT Other: Oral mucosa with white plaques consistent with oral candidiasis (likely adherent). Oral mucosa erythematous and tender Ears: external ears normal General nose exam: Normal external nose present Face and sinus: Yes normal facial exam Throat: Yes uvula midline Resp Effort & Inspection: normal respiratory effort Cardio Rate: regular rate GI Inspection: Yes obesity Palpation (GI): Soft to palpation, not firm, Tenderness to palpation present (GI) in the epigastrum, no guarding, not rigid and No hepatosplenomegaly present Auscultation: normal bowel sounds Neuro General: patient oriented x3 Psych Speech and movement: Normal speech and movement present Assessment & Plan Assessment & Plan (1) Oral thrush: Code(s): B37.0 - Candidal stomatitis Plan: Continue on Fluconazole as prescribed. Added Miracle Mouth Wash for 7 days. Encouraged adequate hydration and soft/bland diet Avoid spicy, acidic, or hot foods Maintain good oral hygiene; rinse mouth after meals. F/U with Dentist if no improvement. Medications: New Miracle Mouthwash-Thomas Nystatin susp 80 mL;Lidocaine 2% Visc 80 mL; Maalox 80 mL; Swish and swallow. 10 mL PO TID-QID 240 mL 0RF 7 days B37.0 - Candidal stomatitis Coding Level of Care Code Est Pt Level 4 (27498) Diagnoses Oral thrush B37.0 Time Spent (min) 20
[2025-07-29 15:44] VITALS: BP 124/78; PULSE 58; RESP 16; TEMP 36.4; O2SAT 94; BMI 31.1
--- OUTSIDE RECORDS SUMMARY | 2025-07-29 17:36 | XMS_ITS | Clinical Summary ---
Author Organization [facility] Address [address] [facility] 7[address] [place] [address] Care Team Providers Care Cork Molder Name Role Phone Unavailable Primary Care Provider Unavailabl e Encounters Date Type Department Care Team Description 06/25/2025 12:45 PM EST Immunization [facility] MEDICAL [address] [place] [address] Immunization due from Last 3 Months Immunizations [...] age to complete this topic Insurance [place] [address] [place] [phone] [facility] MEDEX MEDICARE SUPPLEMENT
--- OUTSIDE RECORDS SUMMARY | 2025-07-29 17:36 | XMS_ITS | Encounter Summary ---
Author Organization [facility] Address [address] [place] [address] Drive [address] [place] [address] Phone Care Team Providers Care Wastewater Plant Civil Engineer Name Role Phone Ez Hahalima Frost BUILDER BEAM Unavailable [phone] Celestina Zimmerman MD Primary Care Provider [phone] Encounter Details Date Type Department Care Team (Late st Contact Info) Description 10/04/2023 Procedure Pass [facility] Endoscopy Admitting Dept Virtual Department [address] [place] [id number] Social History Tobacco Use Types Packs/Day Years [...] Description 01/20/2026 2:10 PM EDT Office Visit [facility] at the [address] [address] Eh Shields MD [address] [place] [address] [email or web address] documented as of this encounter Visit Diagnoses Not on filedocumented in this encounter Additional Health Concerns Infection Onset Date Last Indicated Resolved Time CoV-Risk 09/28/2023 09/28/2023 2023 1:22 AM EST Assessment Noted Time PHQ-2 Depression Total Score: 0 03/06/20 20 12:56 PM EDT documented as of this encounter Care Teams Wastewater Plant Civil Engineer Relationship Specialty Start Date End Date Celestina Zimmerman MD [address] [place] [address] PCP - General Internal Medicine 04/20/21 Griselda Ha NP [address] [place] [address] [place] [address] Family Medicine 02/14/20 documented as of this encounter Additional Source Comments The information contained in this document represents components of the legal health record. It is not the complete legal health record.[facility]
--- OUTSIDE RECORDS SUMMARY | 2025-07-29 17:36 | XMS_ITS | Encounter Summary ---
Author Organization [facility] Address [address] [place] [address] [address] [place] [address] Phone Care Team Providers Care Entertainment Centre Manager Name Role Phone Ez Hahalima Frost HVAC SALES REPRESENTATIVE Unavailable [phone] Celestina Zimmerman MD Primary Care Provider [phone] Encounter Details Date Type Department Care Team (Late st Contact Info) Description 09/28/2023 Procedure Pass [facility], Ct Scan - [address] [address] Social History Tobacco Use Types Packs/Day Years [...] Description 01/20/2026 2:10 PM EDT Office Visit [facility] at the [facility] [address] [facility] [address] [place] [address] Eh Shields MD [address] [place] [address] [email or web address] documented as of this encounter Visit Diagnoses Not on filedocumented in this encounter Additional Health Concerns Infection Onset Date Last Indicated Resolved Time CoV-Risk 09/28/2023 09/28/2023 2023 1:22 AM EST Assessment Noted Time PHQ-2 Depression Total Score: 0 03/06/20 20 12:56 PM EDT documented as of this encounter Care Teams Entertainment Centre Manager Relationship Specialty Start Date End Date Celestina Zimmerman MD [address] [place] [address] PCP - General Internal Medicine 04/20/21 Griselda Ha NP [address] [place] [address] [place] [address] Family Medicine 02/14/20 documented as of this encounter Additional Source Comments The information contained in this document represents components of the legal health record. It is not the complete legal health record.[facility]
--- OUTSIDE RECORDS SUMMARY | 2025-07-29 17:36 | XMS_ITS | Clinical Summary ---
Author Organization [facility] Address [address] [place] [address] Care Team Providers Care Cab Station Attendant Name Role Phone Celestina Zimmerman Primary Care Provider [phone] Mikaela Rutledge NP Unavailable [phone] Mirna Barnes MD Unavailable Chun Vargas MD Unavailable Celestina Zimmerman Unavailable Allergies Active Allergy Reactions Criticality Noted Date Comments Gluten Unknown 11/30/2021 Sulfa (Sulfonamide Antibiotics) Hives Level of certainty: Very Certain Medications amLODIPine (NORVASC) 10 MG tablet 1 tablet(s) by mouth daily 02/14/2017 Active LORazepam (ATIVAN) 0.5 MG tablet tablet(s) oral 04/26/2022 Active levothyroxine (LevoxyL) 25 MCG tablet Tablet oral 04/27/2010 Active multivit-mins no.[id number] c (M-VIT) 27 mg iron- 1 mg Tab Tablet oral 04/27/2010 Ac tive labetaloL (TRANDATE) 100 MG tablet 1 tablet(s) by mouth twice daily 02/14/2017 Active sertraline (ZOLOFT) 25 MG tablet tablet(s) oral 04/26/2022 Active traZODone (DESYREL) 50 MG tablet tablet(s) oral 04/26/2022 Active esomeprazole (NexIUM) 20 mg packet Take 20 mg by mouth 2 times a day. Active oxyBUTYnin (DITROPAN) 5 MG tablet Take 1 tablet (5 mg total) by mouth daily. Active hydrALAZINE (APRESOLINE) 25 MG tablet Take 2 tablets (50 mg total) by mouth 2 times a day. Active albuterol 2.5 mg/0.5 mL Nebu Inhale 0.5 mL (2.5 mg total) as needed. Active furosemide (LASIX) 40 MG tablet Take 1 tablet (40 mg total) by mouth daily. Active gabapentin (NEURONTIN) 100 MG capsule Take 1 capsule (100 mg total) by mouth 3 times a day. 12/04/2024 12/05/19 26 Active montelukast (SINGULAIR) 10 mg tablet Oral for 90 11/06/2021 Active mupirocin (BACTROBAN) 2 % ointment APPLY OINTMENT DAILY TO BIOPSY SITE ON RIGHT THIGH AND COVER WITH A BANDAID UNTIL HEALED External for 30 Active rOPINIRole (REQUIP) 0.5 MG tablet 08/05/2022 Active spironolactone (ALDACTONE) 25 MG tablet TAKE 2 TABLETS (50 MG) BY MOUTH DAILY Oral for Active SUMAtriptan (IMITREX) 100 MG tablet TAKE 1 TABLET BY MOUTH EVERY 2 HOURS NEEDED FOR MIGRAINE, NOT TO EXCEED 200MG PER DAY Oral for 23 Active Active Problems Problem Noted Date Diagnosed Date Ulcer of lower extremity 03/15/2025 Hammer toe of left foot 03/15/2025 Chronic foot ulcer 03/15/2025 DANIS (obstructive sleep apnea) 03/15/2025 Celiac disease 05/21/2024 Gastroesophageal reflux disease 05/21/2024 Dysphagia 05/21/2024 Urinary tract infectious disease 03/07/2022 Retention of urine 02/14/2022 Fracture of pubis 02/14/2022 Chronic obstructive pulmonary disease 02/14/2022 Atherosclerosis of coronary artery without angin a pectoris 02/14/2022 Urticaria 11/30/2021 Posttraumatic stress disorder 11/30/2021 Osteopenia 11/30/2021 Overview (03/15/2025): Osteopenia 2016bone density 06/2012 nl Malignant neoplasm 11/30/2021 Irritable bowel syndrome 11/30/2021 Internal hemorrhoids 11/30/2021 Overview (03/15/2025): colo 2016 Anxiety 11/30/2021 Hypertension 05/04/2019 History of endometrial cancer 04/29/2017 Overview (03/15/2025): Endometrial biopsy performed on April 26, 2017 showed grade 1 endometrial adenocarcinoma. Patient is referred to VIRTUAL ASSISTANT FOR ADVERTISERS oncology at [facility]. She underwent total hysterectomy on 05/09/[address] Mora at [facility]. Nodes were negative. She did not require RT or Chemotherapy. Hypothyroidism 05/29/2009 Encounters Date Type Department Care Team Description 06/10/2025 4:00 PM EST Office Visit [facility] G[facility]ology [facility] [address] [address] Chun Vargas MD Celiac disease (Primary Dx); Dysphagia, unspecified type; Gastroesophageal reflux disease, unspecified whether esophagitis present; Irritable bowel syndrome, unspecified type 05/20/2025 4:00 PM EDT Office Visit [facility] Gastroenterology [address] Celiac disease (Primary Dx); Obesity, unspecified class, unspecified obesity type, unspecified whether serious comorbidity present 05/07/2025 Telephone [facility] Gastroenterology [address] [address] Clair Rai RN GI questions s/p endo flip from Last 3 Months Social History Tobacco Use Types Packs/Day Years Used Date Smoking Tobacco: Never Assessed Comments No Sex and Gender Information Value Date Recorded Sex Assigned at Female 11/05/2024 2:16 PM EDT Legal Sex Female 11:28 PM EST Gender Identity Female 11/05/2024 2:16 PM EDT Sexual Orientation Not on file Last Filed Vital Signs Vital Sign Reading Time Taken Comments Blood Pressure 150/71 03/20/2025 3:40 PM EDT Pulse 51 03/20/2025 3:45 PM EDT Temperature 36 C (96.8 F) 03/20/2025 1:34 PM EDT Respiratory Rate 18 03/20/2025 3:45 PM EDT Oxygen Saturation 93% 03/20/2025 3:45 PM EDT Inhaled Oxygen Concentration - - Weight 80.7 kg (178 lb) 03/20/2025 1:34 PM EDT Height 162.6 cm (5' 4 ) 03/20/2025 1:34 PM EDT Body Mass Index 30.55 03/20/2025 1:34 PM EDT Plan of Treatment Upcoming Encounters Date Type Department Care Team (Late st Contact Info) Description 08/27/2025 11:00 AM EST Office Visit [facility] [address] [facility], [address] [place] [address] Debbie Galindo MD [address] [place] [phone] In Person with Physician 06/09/2026 4:10 PM EST Office Visit [facility] Gastroenterology Clinic [facility] Building [address] [facility], 1st [place] [address] Chun Vargas MD [address] [phone] In Person with Physician Health Maintenance Due Date Last Done Comments Lipid Panel 1951 Depression Screening 1963 Hepatitis C Screening 10/08/1969 Breast Cancer Screening 1991 CT Colonography 10/08/1996 Colonoscopy 10/08/1996 Colorectal Cancer Screening 10/08/1996 FIT 10/08/1996 FOBT 10/08/1996 Multitarget Stool DNA (Cologuard) 10/08/1996 Sigmoidoscopy 10/08/1996 Osteoporosis Screening 10/08/2016 Medicare Initial AWV [id number] 12/30/2020 COVID-19 Vaccine ( season) 2025 07/09/2023, 11/27/2021, 05/22/2021, Additional history exists Influenza Vaccine (#1) 2025 , 09/11/2023, 05/19/2022, Additional history exists TSH Level 05/21/2025 05/21/2024 Blood Pressure 03/20/2026 03/20/2025 DTaP,Tdap,and Td Vaccines (4 - Td or Tdap) 08/16/2026 08/16/2016, 09/29/2012, 08/01/2003 Pneumococcal Vaccine: 50+ Years Completed 05/19/2022, 03/27/2018, 03/22/2017, Additional history exists Zoster Vaccine Completed 11/18/2022, 08/02, 08/08/2015, Additional history exists Meningococcal B Vaccines Aged Out No longer eligible based on patient's age to complete this topic Meningococcal Vaccines Aged Out No lo nger eligible based on patient's age to complete this topic Procedures Procedure Name Priority Date/Time Associated Diagnosis Comments TSH Routine 05/21/2024 4:57 PM EDT Celiac disease from Last 3 Months or Most Recently Relevant to Health Maintenance Results * TSH (05/21/2024 4:57 PM EDT) TSH 3.20 0.27 - 4.20 uIU/mL 05/21/2024 7:31 PM EDT [facility] Blood PERIPHERAL BLOOD SPECIMEN / Unknown Venipuncture / Unknown 05/21/2024 4:57 PM EDT 05/21/2024 4:57 PM EDT us Chun Vargas MD LAB BLOOD ORDERABLES Final Resul t [facility] [address] [facility]. [place] [id number], from Last 3 Months or Most Recently Relevant to Health Maintenance Insurance MEDICARE MEDEX MEDICARE MEDEX Care Teams Cab Station Attendant Relationship Specialty Start Date End Date Celestina Zimmerman [address] [place] [address] PCP - General 05/24/23 Mikaela Rutledge, INTERIOR BLOCK WIRER [address] [place] [address] PCP - Insurance Assigned PCP 05/24/23 Mirna Barnes MD [address] [place] [address] Gastroenterology 12/31/23 Chun Vargas MD [address] [facility] [id number] [place] [id number] Gastroenterology 11/03/21 Celestina Zimmerman [facility] [place] [address] 05/24/23
--- OUTSIDE RECORDS SUMMARY | 2025-07-29 17:36 | XMS_ITS | Clinical Summary ---
Author Organization [facility] [address] [facility] [address] Address [address] [place] [address] Phone Care Team Providers Care Cost Specialist Name Role Phone Vonnie Cali DO Primary [...] 1 endometrial adenocarcinoma. Patient is referred to [facility]INE ELECTRICIAN oncology at [facility]. She underwent total hysterectomy on 05/09/[address] Mora at [facility]. Nodes were negative. She did not require RT or Chemotherapy. Surgical History Surgery Date Site/Laterality Comments TONSILLECTOMY ADENOIDECTOMY, BILATERAL MYRINGOTOMY AND TUBES age 8 PROCEDURE: IN TONSILLECTOMY & ADENOIDECTOMY <AGE 13 ROBOTIC ASSISTED HYSTERECTOMY 05/09/2017 PROCEDURE: HISTORICAL ROBOTIC HYSTERECTOMY WITH OR WITHOUT BSO Medical History Medical History Date Comments Celiac disease 2007 DX:Celiac diseas e Other and unspecified noninf ectious gastroenteritis and colitis(558.9) 2003 DX:Other and unspec ified noninfectious gastroenteritis and colitis(558.9); COMMENT: viral syndrome PTSD (post-traumatic stress disorder) DX:PTSD (post-traumatic stress disorder); COMMENT: Abusive Endometrial cancer ([facility]/HCC V24, [facility]/HCC V28) 04/29/2017 DX:Endometrial cancer (HCC); COMMENT: Endometrial biopsy performed on April 26, 2017 showed grade 1 endometrial adenocarcinoma. Patient is referred to [facility] oncology at [facility]. She underwent total hysterectomy on 05/09/[address] Mora at [facility]. Nodes were negative. She did [...] 3487 g (123 oz) F Vag-S pont [facility] Last Filed Vital Signs Vital Sign Reading [...] to complete this topic Insurance MEDICARE [facility] Care Teams Cost Specialist Relationship Specialty Start Date End Date Vonnie Cali DO [address] [place] [address] PCP - General 04/29/17
--- OUTSIDE RECORDS SUMMARY | 2025-07-29 17:36 | XMS_ITS | Encounter Summary ---
Author Organization [facility] Address [address] [place] [address] [place] [address] Phone Care Team Providers Care Shop Foreman Name Role Phone Mikaela Dickens PROTOTYPE DEICER ASSEMBLER Primary Care Provider Griselda Ha PROTOTYPE DEICER ASSEMBLER Unavailable [phone] Celestina Zimemrman MD Primary Care Provider [phone] Reason for Referral * MRI/CAT Scan - Closed Specialty Diagnoses / Procedures Referred By Contac t Referred To Contact Procedures MRI Brain Outside (No Interpretation) System, Provider Not In, [facility] [address] [address] Referral ID Status Reason Start Date Expiration Date Visits Re quested Visits Authorized [id number] Closed 01/12/2019 01/12/2020 1 1 Encounter Details Date Type Department Care Team (Late st Contact Info) Description 01/12/2019 Ancillary Orders [facility],Outside Imaging [address] [place] [address] System, Provider Not In, [facility] [employer] [address] Social History Tobacco Use Types Packs/Day Years [...] [facility] at [facility] [address] [facility] [address] [place] [address] Eh Shields MD [address] [place] [address] [email or web address] documented as of this encounter Results * [...] documented as of this encounter Care Teams Shop Foreman Relationship Specialty Start Date End Date Mikaela Dickens NP [address] [place] [address] [place] [address] [email or web address] PCP - General Family Medicine 10/31/18 Celestina Zimmerman MD [address] [place] [address] PCP - General Internal Medicine 04/20/21 Griselda Ha NP [address] [place] [address] Dr Meade [address] [place] [address] Family Medicine 02/14/20 documented as of this encounter Additional Source Comments The information contained in this document represents components of the legal health record. It is not the complete legal health record.[facility]
--- OUTSIDE RECORDS SUMMARY | 2025-07-29 17:36 | XMS_ITS | Encounter Summary ---
Author Organization [facility] Address [address] [place] [address] [place] [address] Phone Care Team Providers Care Corporate Safety Manager Name Role Phone Ez Hahalima Frost SAMPLE CARD MAKER Unavailable [phone] Celestina Zimmerman MD Primary Care Provider [phone] Encounter Details Date Type Department Care Team (Late st Contact Info) Description 02/14/2022 Procedure Pass [facility], Ct Scan - [address] [address] Social History Tobacco Use Types Packs/Day Years [...] [facility] at the [address] [place] [address] Eh Shields MD [address] [place] [address] [email or web address] documented as of this [...] documented as of this encounter Care Teams Corporate Safety Manager Relationship Specialty Start Date End Date Celestina Zimmerman MD [place] [address] PCP - General Internal Medicine 04/20/21 Griselda Ha NP [address] [place] [address] Dr Meade [address] [place] [address] Family Medicine 02/14/20 documented as of this encounter Additional Source Comments The information contained in this document represents components of the legal health record. It is not the complete legal health record.[facility]
--- OUTSIDE RECORDS SUMMARY | 2025-07-29 17:36 | XMS_ITS | Encounter Summary ---
Author Organization [facility] Address [address] [place] [address] Phone Care Team Providers Care Tensioning Machine Operator Name Role Phone Mikaela Dickens SENIOR EXECUTIVE ASSISTANT Primary Care Provider Griselda Ha SENIOR EXECUTIVE ASSISTANT Unavailable [phone] Celestina Zimmerman MD Primary Care Provider [phone] Encounter Details Date Type Department Care Team (Late st Contact Info) Description 02/21/2019 Procedure Pass [facility],Outside Imaging [address] [place], [place] [id number] Social History Tobacco Use Types Packs/Day Years [...] [facility] at the [address] [address] Eh Shields MD [address] [place] [address] [email or web address] documented as of this encounter Visit Diagnoses [...] documented as of this encounter Care Teams Tensioning Machine Operator Relationship Specialty Start Date End Date Mikaela Dickens NP [address] [place] [address] [place] [address] [email or web address] PCP - General Family Medicine 10/31/18 Celestina Zimmerman MD [facility] [place] [address] PCP - General Internal Medicine 04/20/21 Griselda Ha NP [address] [place] [address] [place] [address] Family Medicine 02/14/20 documented as of this encounter Additional Source Comments The information contained in this document represents components of the legal health record. It is not the complete legal health record.[facility]
--- OUTSIDE RECORDS SUMMARY | 2025-07-29 17:36 | XMS_ITS | Clinical Summary ---
Author Organization [facility] Address [address] [place] [address] [place] [address] Phone Care Team Providers Care K [employer] School Principal Name Role Phone Griselda Ha PAINTER AND DECORATOR Unavailable [phone] Celestina Zimmerman MD Primary Care Provider [phone] Allergies Active Allergy Reactions Criticality Noted Date [...] Active fluconazole (DIFLUCAN) 200 MG tablet 05/14/20 25 Active ketoconazole 2 % cream APPLY CREAM TO FEET TWICE DAILY FOR 3 WEEKS, REPEAT NEEDED External for 30 Active lidocaine 2 % Soln Mouth/Throat for 3 Active lidocaine (XYLOCAINE) 4 % topical solution topical solution Apply 180 mg topically. 05/08/20 25 Active metroNIDAZOLE (METROCREAM) 0.75 % cream 06/11/20 25 Active mupirocin (BACTROBAN) 2 % ointment APPLY [...] MG PM 022 Discontin ued(No longer taking) Active Problems [...] Description 06/12/2025 6:00 PM EST Office Visit [facility] Care at [address] [address] Eh Morse PA-C Acute maxillary sinusitis, recurrence not specified (Primary Dx) 05/17/2025 1:00 PM EDT Office Visit [facility] Neurology [address] [facility], 7th [address], [address] [place] [address] Salvatore Crocker MD, PhD Tremor (Primary Dx) from Last 3 Months Immunizations Immunization Administration Dates Next Due [id number] FORMULATION 04/16/2011,05/02 INFLUENZA, SPLIT VIRUS, TRIV ALENT [...] [facility] at the [address] [place] [address] Eh Shields MD [address] [place] [address] [email or web address] Health Maintenance Due Date Last Done Comments [...] EST) TSH 3.18 0.27 - 4.20 uIU/mL [facility] Blood 09/28/2023 7:22 PM EST 09/28/2023 7:24 PM EST Eduardo Persaud PA-C LAB BLOOD BKR ORDERABLES Soha l Result Performing Organization Address [facility]/ZIP Co de Phone Number [address] [address] * (ABNORMAL) Basic metabolic panel (09/28/2023 7:22 PM EST) SODIUM 140 133 - 146 mmol/L [facility] CHLORIDE 101 96 - 108 mmol/L [facility] POTASSIUM 3.6 3.3 - 5.1 mmol/L [facility] CO2 27 21 - 35 mmol/L [facility] BUN 18 6 - 19 mg/dL [facility] CREATININE 1.10 0.5 - 1.5 mg/dL [facility] GLUCOSE 99 70 - 99 mg/dL [facility] CALCIUM 9.2 8.4 - 10.3 mg/dL [facility] EGFR 54(L) >59 mL/min/1.7 3m2 [facility] Comment:Estimated glomerular filtration rate calculated using the CKD-EPI refit equation. ANION GAP 16 10 - 20 mmol/L [facility] Blood 09/28/2023 7:22 PM EST 09/28/2023 7:24 PM EST Eduardo Persaud PA-C LAB BLOOD BKR ORDERABLES Soha l Result Performing Organization Address [facility]/ZIP Co de Phone Number [address] [address] from Last 3 Months or Most Recently Relevant to Health Maintenance Insurance MEDICARE PART A & B Member Subscriber Plan / Payer (Ef fective 2019-Present) Name:Sana De Jesus Member ID:[id number] Relation to Subscriber:Self Name:Sana De Jesus Subscriber ID:[id number] Payer ID:[id number] Group ID:Not on file Type:Medicare Address: [place] [address] [place] [id number] Tutor Assignment MEDEX SUPPLEMENT MEDICARE PART A & B Tutor Assignment MEDEX SUPPLEMENT MEDICARE PART A & B Tutor Assignment MEDEX SUPPLEMENT MEDICARE PART A & B Tutor Assignment MEDEX SUPPLEMENT MEDICARE PART A & B Tutor Assignment MEDEX SUPPLEMENT MEDICARE PART A & B Tutor Assignment MEDEX SUPPLEMENT MEDICARE PART A & B [facility] MEDEX SUPPLEMENT MEDICARE PART A & B Tutor Assignment MEDEX SUPPLEMENT MEDICARE PART A & B Tutor Assignment MEDEX SUPPLEMENT Advance Directives For more information, please contact: [phone] (9AM - 5PM [facility], Tuesday-Tuesday) Documents on File Type Date Recorded Patient Certified Ophthalmic Medical Technician Expl anation Healthcare Proxy 02/14/2022 signed Healthcare Agents on File Name Relationship Healthcare Agent Relationship Communication Niels De Jesus Spouse .Primary Health Care Agent (Proxy form on file) Alba Martinez Daughter Alternate Health care Agent (Proxy form on file) Care Teams [employer] Principal Relationship Specialty Start Date End Date Celestina Zimmerman MD [facility] [place] [address] PCP - General Internal Medicine 04/20/21 Griselda Ha NP [address] [place] [address] Dr Meade [address] [place] [address] Family Medicine 02/14/20 Additional Source Comments The information contained in this document represents components of the legal health record. It is not the complete legal health record.[facility]
--- OUTSIDE RECORDS SUMMARY | 2025-07-29 17:36 | XMS_ITS | Encounter Summary ---
Author Organization [facility] Address [address] [place] [address] [place] [address] Phone Care Team Providers Care Bookkeeping Clerks Supervisor Name Role Phone Ez Hahalima Frost SUPERVISOR [employer] Unavailable [phone] Celestina Zimmerman MD Primary Care Provider [phone] Encounter Details Date Type Department Care Team (Late st Contact Info) Description 02/13/2022 Procedure Pass [facility], Ct Scan - [address] [address] Social History Tobacco Use Types Packs/Day Years [...] [facility] at the [address] [place] [address] Eh Shields MD [address] [place] [address] [email or web address] documented as of this encounter [...] documented as of this encounter Care Teams Bookkeeping Clerks Supervisor Relationship Specialty Start Date End Date Celestina Zimmerman MD [facility] [place] [address] PCP - General Internal Medicine 04/20/21 Griselda Ha NP [address] [place] [address] Dr Meade [address] [place] [address] Family Medicine 02/14/20 documented as of this encounter Additional Source Comments The information contained in this document represents components of the legal health record. It is not the complete legal health record.[facility]
--- OUTSIDE RECORDS SUMMARY | 2025-07-29 17:36 | XMS_ITS | Encounter Summary ---
Author Organization [facility] [place] Address [address] [place] [address] Phone Care Team Providers Care Research Physiologist Name Role Phone Mikaela Dickens CLIENT RELATIONSHIP CONSULTANT Primary Care Provider Griselda Ha CLIENT RELATIONSHIP CONSULTANT Unavailable [phone] Celestina Zimmerman MD Primary Care Provider [phone] Encounter Details Date Type Department Care Team (Late st Contact Info) Description 01/12/2019 Procedure Pass [facility],Outside Imaging [address] [place], [place] [phone] Social History Tobacco Use Types Packs/Day Years [...] and Women's Neurology Clinic at the [address] [address] Eh Shields MD 60 [place] [address] [email or web address] documented as of this encounter Visit Diagnoses [...] as of this encounter Care Teams Research Physiologist Relationship Specialty Start Date End Date Mikaela Dickens NP [address] [place] [address] [place] [address] [email or web address] PCP - General Family Medicine 10/31/18 Celestina Zimmerman [place] [address] PCP - General Internal Medicine 04/20/21 Griselda Ha NP [address] [place] [address] [place] [address] Family Medicine 02/14/20 documented as of this encounter Additional Source Comments The information contained in this document represents components of the legal health record. It is not the complete legal health record.[facility] [place]
--- OUTSIDE RECORDS SUMMARY | 2025-07-29 17:36 | XMS_ITS | Clinical Summary ---
Author Organization [facility] Address [address] [id number] Care Team Providers Care Contract Administrator Name Role Phone Unavailable Primary Care Provider Unavailabl e Medications Hospital, Clinic, or Other Facility Administered Medication Ordered Dose Route Frequency Start Date End Date Status lidocaine (XYLOCAINE) 4% (40 mg/mL) topical solution 180 mg 180 mg topical Once 05/08/2025 Active Encounters Date Type Department Care Team Description 05/08/2025 12:52 PM EDT - 05/08/2025 11:59 PM EDT Hospital Encounter [facility] Pre and Post Anesthesia Care Unit [address] [place], [place] [id number] Valerie Alexander PA Discharge Disposition: Home or [...] age to complete this topic Insurance MEDICARE [facility]
--- OUTSIDE RECORDS SUMMARY | 2025-07-29 17:36 | XMS_ITS | Patient Health Record ---
[facility] Address [address] [place] [address] Care Team Providers Care Lugger Name Role Phone Celestina Zimmerman MD Primary Care Provider Alba Mir Unavailable [phone] Olayinka Domingo Unavailable Allergies Allergen (clinical drug [...] 5 MG Oral; Duration: 90 Active Nystatin 447629 UNIT/ML Mouth/Throat; Duration: 10 Not-Taking Montelukast Sodium [...] W/U Status Risk Notes Problem Hammer toe (336059952) Hammer toe of left foot (M20.42) Active confirmed Problem Dry skin dermatitis (269116342) Nummular eczematous dermatitis (L30.0) Active confirmed Vital Signs Blood pressure diastolic 55 mm Hg 06/11/2025 Height 5ft 5in in 06/11/2025 Blood pressure systolic 120 mm Hg 06/11/2025 Weight 185 lbs 06/11/2025 BMI 30.78 kg/m2 06/11/2025 Procedures Procedure Date Ordered Date Performed Result Body Sit e [id number]-CMHVMLR NAIL, 6 OR MORE 06/11/2025 N/A Encounters Encounter Location Date Provider Diagnosis [address] [address] 09/28/2024 [facility] L60.[facility] [address] 06/11/2025 Olayinka Domingo Onychomycosis B35.1 ; Nummular eczematous dermatitis L30.0 ; Pain in right toe(s) M79.674 and Pain in left toe(s) M79.[address] [address] 06/10/2025 Alba Caal [address] [address] 06/13/2025 Alba Caal Assessments Encounter Date Diagnosis (ICD Code) Assessment Notes Treatment Notes Treatment Clinical Notes Section Notes 09/28/2024 Ingrown nail (ICD-10 - L60.0) 06/11/2025 Onychomycosis (ICD-10 - B35.1) 06/11/2025 Nummular eczematous dermatitis (ICD-10 - L30.0) 06/11/2025 Pain in right toe(s) (ICD-10 - M79.674) 06/11/2025 Pain in left toe(s) (ICD-10 - M79.675) Plan Of Treatment Pending Test Test Name Order Date [id number]-ZNJALUM NAIL, 6 OR MORE 06/11/2025 [id number]-[id number] SKIN/TISSUE 01/06/2023 Next Appt Details Provider Name:Olayinka Domingo, 09/10/2025 02:30:00 PM, [address], [place], [address], Insurance Providers Payer Name Payer Address Payer Phone Subscriber Number Group Number Insured Name Patient Relationship to Insured Coverage Start Date Coverage End Date Medicare [employer] [address] [place] [address] [id number] Sana Mireles Self - [facility] the [facility] [address] [place] [address] [id number] Sana Mireles Self - patient is the insured Medical (General) History Medical History History ICD Code Anxiety Cancer Measles Mumps Chicken pox Headaches/Migraines High blood pressure Psychiatric disorder Celiac disease Surgical History Surgery Date(Month/Year) hysterectomy endo flip Hospitalization History Reason Date(Month/Year) [facility] [place]- CHF, respiratory issues 09/2022
--- OUTSIDE RECORDS SUMMARY | 2025-07-29 17:36 | XMS_ITS | Encounter Summary ---
Author Organization [facility] Address [address] [place] [address] [place] [address] Phone Care Team Providers Care Air Brake Mechanic Name Role Phone Mikaela Dickens FILM CLEANER Primary Care Provider Griselda Ha FILM CLEANER Unavailable [phone] Celestina Zimmerman MD Primary Care Provider [phone] Reason for Referral * MRI/CAT Scan - Closed Specialty Diagnoses / Procedures Referred By Contac t Referred To Contact Procedures MRI Brain Outside (No Interpretation) System, Provider Not In, [facility] [address] [address] Referral ID Status Reason Start Date Expiration Date Visits Re quested Visits Authorized [id number] Closed 02/21/2019 02/21/2020 1 1 Encounter Details Date Type Department Care Team (Late st Contact Info) Description 02/21/2019 Ancillary Orders [facility],Outside Imaging [address] [place] [address] System, Provider Not In, [facility] [address] [address] Social History Tobacco Use Types Packs/Day Years [...] [facility] [address] [place] [address] Eh Shields MD [address] [place] [address] [email or web address] documented as of this encounter Results [...] documented as of this encounter Care Teams Air Brake Mechanic Relationship Specialty Start Date End Date Mikaela Dickens NP [address] [place] [address] [place] [address] [email or web address] PCP - General Family Medicine 10/31/18 Celestina Zimmerman MD [address] [place] [id number] PCP - General Internal Medicine 04/20/21 Griselda Ha NP [address] [place] [address] Dr Meade [address] [place] [id number] Family Medicine 02/14/20 documented as of this encounter Additional Source Comments The information contained in this document represents components of the legal health record. It is not the complete legal health record.[facility]
--- OUTSIDE RECORDS SUMMARY | 2025-07-29 17:36 | XMS_ITS | Clinical Summary ---
Author Organization [facility] Address [address] [place] [address] Care Team Providers Care Recruiter Name Role Phone Celestina Zimmerman MD Primary Care Provider [phone] Allergies Active Allergy Reactions Criticality Noted Date [...] Overview (03/27/2025): 2016; [place] 20[place]o [place], repeat 2015 Chronic foot ulcer [...] 1 endometrial adenocarcinoma. Patient is referred to [facility] at [facility]. She underwent total hysterectomy on 05/09/[address] Mora at [facility]. Nodes were negative. She did not [...] topic Insurance MEDICARE PART A & [place] [id number] Care Teams Recruiter Relationship Specialty Start Date End Date Celestina Zimmerman MD [address] [place] [address] PCP - General 03/27/25
== END 2025-07-29 16:53 | disposition home or self-care (01) ==
PROVIDERS: PCP Internal Medicine; Visit Provider Nurse Practitioner Family
DX: B37.0 Candidal stomatitis (principal)

== ENCOUNTER → 2025-07-29 15:36 | Outpatient (BNVA) | payer MEDICARE, SELFPAY | PROVIDERS: PCP Internal Medicine; Visit Provider Nurse Practitioner Family | DX: B37.0 Candidal stomatitis (principal); R13.10 Dysphagia, unspecified | CPT/HCPCS: 99212 ==